=== PATIENT | male | born 1950 | race Caucasian/White ===

== ENCOUNTER 2020-08-06 12:28 | Emergency (ER) | payer MEDICARE, SELFPAY ==
[2020-08-06 13:52] VITALS: BP 123/76; PULSE 97; RESP 18; TEMP 37.8; O2SAT 99; BMI 34.2
--- NOTE | 2020-08-06 13:53 | XR_ITS ---
EXAMINATION: XR CHEST CLINICAL INFORMATION: Chest 11 cough. COMPARISON: None TECHNIQUE: Frontal view of the chest was obtained. FINDINGS: The lungs are well-expanded and clear. The heart size and pulmonary vascularity is within normal limits. Mild spondylosis of dorsal spine. No lytic process. XR/XR chest 1V IMPRESSION: Unremarkable chest exam.
--- NOTE | 2020-08-06 14:01 | ED_ITS ---
HPI - General Adult General Chief complaint: Dizziness Stated complaint: Dizziness Time Seen by Provider: 08/06/20 13:45 Source: patient Mode of arrival: ambulatory Limitations: no limitations History of Present Illness HPI narrative: this is 61-year-old male with past medical history that is significant for COPD, diabetes, hyperlipidemia, hypertension, chronic back pain secondary to arthritis/ disc disease who presents ambulatory via triage with complaint of having chills and body aches for the past 5 days with mild congestion and some left-sided chest pain. States has had chills but no reported fever. About a week ago he did go to [facility] and her for but no known sick contacts. He otherwise denies headache, currently no chest pain. No abdominal pain, nausea, vomiting or diarrhea. Onset (ago): day(s) (5 days ) Location: chest Radiation: non-radiation Severity: moderate Quality: aching Pain Consistency: intermittent Relieving factors: none Associated symptoms: denies other symptoms Related Data Allergies Allergy/AdvReac Type Severity Reaction Status Date / Time No Known Allergies Allergy Verified 08/06/20 13:55 Review of Systems Review of Systems: Constitutional: No Weight loss, No Fever, + Chills ENT/Mouth: No Hearing loss, No Ear Pain, + Nasal Congestion, No Sinus Pain, No Hoarseness, No sore throat, + Rhinorrhea, No Swallowing Difficulty Eyes: No Eye Pain, No Swelling, No Redness, No Foreign Body, No Discharge, No Vision Changes Cardiovascular: + Chest Pain, + SOB, No Dyspnea on Exertion, No Orthopnea, No Edema, No Palpitations Respiratory: Mild Cough, No Sputum, No Wheezing, No Smoke Exposure, No Dyspnea Gastrointestinal: No Nausea, No Vomiting, No Diarrhea, No Constipation, No abdominal Pain, No Hematochezia, No Melena Genitourinary: no irregular bleeding, No Dysuria, No Urinary Frequency, No Hematuria, No Urinary Incontinence, No Urgency, No Flank Pain, No Urinary Flow Changes, No Hesitancy Musculoskeletal: No joint pain, No Myalgias, No Joint Swelling Skin: No Skin Lesions, No rash Neuro: No Weakness, No Numbness, No Paresthesias, No Loss of Consciousness, No Dizziness, No Headache Psych: No Anxiety/Panic, No Depression, No Social Issues Heme/Lymph: No Bruising, No Bleeding,No Lymphadenopathy Endocrine: No Polyuria, No Polydipsia, No Temperature Intolerance Yes all other systems are reviewed and are negative [facility] Past Medical History Attestation statement: The following information was validated with the patient. [facility] Narrative: Screening colonoscopy 03/12/2019 prior to that he was admitted 11/28/2010 for renal failure, dehydration, syncopal episode, mild rhabdo Medical History (Updated 08/06/20 @ 19:42 by Charles Vogt NP) Arthritis Diabetes HTN (hypertension) Social History Social History Smoked in Last 30 Days: No Use of substances other than those prescribed or required for medical reasons: No Advance Directives: No Advance Directives Information Provided: No Physical Exam Vital Signs: Vital Signs: Vital Signs Temp Pulse Resp BP Pulse Ox 08/06/20 17:42 98.9 F 66 16 117/54 L 96 08/06/20 15:45 101.1 F H 08/06/20 15:05 100.1 F 80 16 131/77 94 08/06/20 13:52 100.0 F 97 18 123/76 99 Body Mass Index 34.2 Reviewed Const: General: cooperative and healthy appearing; No acute distress or intoxicated appearing Nutritional Appearance: average body habitus Orientation/consciousness: patient oriented x3 HENMT: Head: Yes normal to inspection Ears: hearing grossly normal bilaterally Eyes: General: appearance normal, both eyes and all related structures Visual Aranda: normal visual aranda by confrontation Neck: Neck: Yes normal visual inspection, No positive Brudzinski's sign, No p ositive Kernig's sign and No tender Thyroid: Thyroid normal Chest: Chest palpation & inspection: normal inspection of the chest Resp: Effort & Inspection: normal respiratory effort Cardio: Jugular venous distension: no JVD GI: Inspection: Yes normal to inspection Percussion: Yes normal to percussion Auscultation: normal bowel sounds : General: Yes no CVA tenderness Back/Spine/Pelvis: Back: no CVA tenderness Skin: General skin exam: no rashes or lesions noted Neuro: General: patient oriented x3 Extrem: General: Yes normal to inspection Medical Decision Making [facility] Narrative Medical decision making narrative: resting comfortable. No chest pain or shortness of breath. Repeat troponin without delta. Chest x-ray negative. Labs overall stable. AP consistent with viral syndrome type symptoms. Will be discharged home with clear return/follow-up instructions. COVID-19 pending. Out of bed ambulatory status with gait no shortness of breath or chest pain. Pulse ox at 98-99% on room air. Stable for discharge. Differential Diagnosis Differential Diagnosis: Viral syndrome, COVID-19, pneumonia, ACS less likely, costochondritis Lab Data Result diagrams: 08/06/20 14:13 08/06/20 14:13 Labs: Lab Results 08/06/20 08/06/20 08/06/20 Range/Units 14:13 14:13 14:13 WBC 8.0 (4.8-10.8) X10*3/uL RBC 5.09 (4.60-5.80) X10*6/uL Hgb 14.6 (14.0-18.0) g/dl Hct 44.5 (42-52) % MCV 87.4 (80-98) fL MCH 28.7 (27.0-33.0) pg MCHC 32.8 (31.0-36.0) g/dl RDW 13.1 (11.0-16.0) % Plt Count 234 (160-400) X10*3/uL MPV 10.5 (9.4-12.4) fL Immature Gran % (Auto) 0.2 (0.0-0.4) % Neut % (Auto) 80.9 H (45-73) % Lymph % (Auto) 12.7 L (20-40) % [place] % (Auto) 6.1 (2-11) % Eos % (Auto) 0.0 (0-4) % Baso % (Auto) 0.1 (0-2) % Lymph # (Auto) 1.0 L (1.2-4.9) X10*3/uL [place] # (Auto) 0.5 (0.1-1.2) X10*3/uL Eos # (Auto) 0.0 (0.0-0.4) X10*3/uL Baso # (Auto) 0.0 (0.0-0.2) X10*3/uL Abs Immat Gran (auto) 0.02 (0.00-0.03) X10*3/uL Absolute Neuts (auto) 6.5 (2.0-8.3) X10*3/uL Absolute Nucleated RBC 0.000 (0.0-0.012) X10*3/uL Nucleated RBC % (auto) 0.0 (0.0-0.2) /100WBC PT 12.8 (10.8-13.0) SEC INR 1.1 (0.9-1.1) APTT 27.6 (24.1-38.0) SEC Sodium (135-145) mmol/L Potassium (3.3-5.1) mmol/l Chloride (96-108) mmol/L Carbon Dioxide (22-29) mmol/L Anion Gap (12-20) BUN (9-16) mg/dL Creatinine (0.5-1.4) mg/dL Estim Creat Clear Calc Estimated GFR POC Glucose (60-115) mg/dL Random Glucose (60-115) mg/dL Lactic Acid (0.5-2.0) mmol/L Calcium (8.4-10.2) mg/dL Total Bilirubin (0.0-1.0) mg/dL AST (5-37) U/L ALT (0-40) U/L Alkaline Phosphatase (39-117) U/L Lactate Dehydrogenase (118-273) U/L Troponin I High Sens (<3.5-35.0) ng/L Total Protein (6.5-8.0) g/dL Albumin (3.5-5.0) g/dL Procalcitonin 0.18 ng/mL Urine Color Urine Appearance Urine pH (5.0-8.0) Ur Specific [place] (1.005-1.025) Urine Protein (NEG-TRACE) MG/DL Urine Glucose (UA) (NEG) MG/DL Urine Ketones (NEG) MG/DL Urine Blood (NEG) Urine Nitrite (NEG) Ur Leukocyte Esterase (NEG) Urine RBC (0) /HPF Urine WBC (0-4) /HPF Ur Squamous Epith Cells /LPF Urine Bacteria /LPF Influenza Type A (PCR) (Negative) Influenza Type B (PCR) (Negative) Influenza A & B Note RSV RNA Qual (PCR) (Negative) 08/06/20 08/06/20 08/06/20 Range/Units 14:13 14:13 14:13 WBC (4.8-10.8) X10*3/uL RBC (4.60-5.80) X10*6/uL Hgb (14.0-18.0) g/dl Hct (42-52) % MCV (80-98) fL MCH (27.0-33.0) pg MCHC (31.0-36.0) g/dl RDW (11.0-16.0) % Plt Count (160-400) X10*3/uL MPV (9.4-12.4) fL Immature Gran % (Auto) (0.0-0.4) % Neut % (Auto) (45-73) % Lymph % (Auto) (20-40) % [place] % (Auto) (2-11) % Eos % (Auto) (0-4) % Baso % (Auto) (0-2) % Lymph # (Auto) (1.2-4.9) X10*3/uL [place] # (Auto) (0.1-1.2) X10*3/uL Eos # (Auto) (0.0-0.4) X10*3/uL Baso # (Auto) (0.0-0.2) X10*3/uL Abs Immat Gran (auto) (0.00-0.03) X10*3/uL Absolute Neuts (auto) (2.0-8.3) X10*3/uL Absolute Nucleated RBC (0.0-0.012) X10*3/uL Nucleated RBC % (auto) (0.0-0.2) /100WBC PT (10.8-13.0) SEC INR (0.9-1.1) APTT (24.1-38.0) SEC Sodium 138 (135-145) mmol/L Potassium 4.2 (3.3-5.1) mmol/l Chloride 102 (96-108) mmol/L Carbon Dioxide 24 (22-29) mmol/L Anion Gap 16 (12-20) BUN 16 (9-16) mg/dL Creatinine 1.31 (0.5-1.4) mg/dL Estim Creat Clear Calc 62.4 Estimated GFR 54 POC Glucose (60-115) mg/dL Random Glucose 59 L* (60-115) mg/dL Lactic Acid 2.0 (0.5-2.0) mmol/L Calcium 8.2 L (8.4-10.2) mg/dL Total Bilirubin 0.6 (0.0-1.0) mg/dL AST 33 (5-37) U/L ALT 25 (0-40) U/L Alkaline Phosphatase 67 (39-117) U/L Lactate Dehydrogenase 199 (118-273) U/L Troponin I High Sens 18.3 (<3.5-35.0) ng/L Total Protein 7.8 (6.5-8.0) g/dL Albumin 4.2 (3.5-5.0) g/dL Procalcitonin ng/mL Urine Color Urine Appearance Urine pH (5.0-8.0) Ur Specific [place] (1.005-1.025) Urine Protein (NEG-TRACE) MG/DL Urine Glucose (UA) (NEG) MG/DL Urine Ketones (NEG) MG/DL Urine Blood (NEG) Urine Nitrite (NEG) Ur Leukocyte Esterase (NEG) Urine RBC (0) /HPF Urine WBC (0-4) /HPF Ur Squamous Epith Cells /LPF Urine Bacteria /LPF Influenza Type A (PCR) (Negative) Influenza Type B (PCR) (Negative) Influenza A & B Note RSV RNA Qual (PCR) (Negative) 08/06/20 08/06/20 08/06/20 Range/Units 14:13 15:44 15:58 WBC (4.8-10.8) X10*3/uL RBC (4.60-5.80) X10*6/uL Hgb (14.0-18.0) g/dl Hct (42-52) % MCV (80-98) fL MCH (27.0-33.0) pg MCHC (31.0-36.0) g/dl RDW (11.0-16.0) % Plt Count (160-400) X10*3/uL MPV (9.4-12.4) fL Immature Gran % (Auto) (0.0-0.4) % Neut % (Auto) (45-73) % Lymph % (Auto) (20-40) % [place] % (Auto) (2-11) % Eos % (Auto) (0-4) % Baso % (Auto) (0-2) % Lymph # (Auto) (1.2-4.9) X10*3/uL [place] # (Auto) (0.1-1.2) X10*3/uL Eos # (Auto) (0.0-0.4) X10*3/uL Baso # (Auto) (0.0-0.2) X10*3/uL Abs Immat Gran (auto) (0.00-0.03) X10*3/uL Absolute Neuts (auto) (2.0-8.3) X10*3/uL Absolute Nucleated RBC (0.0-0.012) X10*3/uL Nucleated RBC % (auto) (0.0-0.2) /100WBC PT (10.8-13.0) SEC INR (0.9-1.1) APTT (24.1-38.0) SEC Sodium (135-145) mmol/L Potassium (3.3-5.1) mmol/l Chloride (96-108) mmol/L Carbon Dioxide (22-29) mmol/L Anion Gap (12-20) BUN (9-16) mg/dL Creatinine (0.5-1.4) mg/dL Estim Creat Clear Calc Estimated GFR POC Glucose 159 H (60-115) mg/dL Random Glucose (60-115) mg/dL Lactic Acid (0.5-2.0) mmol/L Calcium (8.4-10.2) mg/dL Total Bilirubin (0.0-1.0) mg/dL AST (5-37) U/L ALT (0-40) U/L Alkaline Phosphatase (39-117) U/L Lactate Dehydrogenase (118-273) U/L Troponin I High Sens 19.1 (<3.5-35.0) ng/L Total Protein (6.5-8.0) g/dL Albumin (3.5-5.0) g/dL Procalcitonin ng/mL Urine Color Urine Appearance Urine pH (5.0-8.0) Ur Specific [place] (1.005-1.025) Urine Protein (NEG-TRACE) MG/DL Urine Glucose (UA) (NEG) MG/DL Urine Ketones (NEG) MG/DL Urine Blood (NEG) Urine Nitrite (NEG) Ur Leukocyte Esterase (NEG) Urine RBC (0) /HPF Urine WBC (0-4) /HPF Ur Squamous Epith Cells /LPF Urine Bacteria /LPF Influenza Type A (PCR) NEGATIVE (Negative) Influenza Type B (PCR) NEGATIVE (Negative) Influenza A & B Note See Note RSV RNA Qual (PCR) NEGATIVE (Negative) 08/06/20 Range/Units 17:42 WBC (4.8-10.8) X10*3/uL RBC (4.60-5.80) X10*6/uL Hgb (14.0-18.0) g/dl Hct (42-52) % MCV (80-98) fL MCH (27.0-33.0) pg MCHC (31.0-36.0) g/dl RDW (11.0-16.0) % Plt Count (160-400) X10*3/uL MPV (9.4-12.4) fL Immature Gran % (Auto) (0.0-0.4) % Neut % (Auto) (45-73) % Lymph % (Auto) (20-40) % [place] % (Auto) (2-11) % Eos % (Auto) (0-4) % Baso % (Auto) (0-2) % Lymph # (Auto) (1.2-4.9) X10*3/uL [place] # (Auto) (0.1-1.2) X10*3/uL Eos # (Auto) (0.0-0.4) X10*3/uL Baso # (Auto) (0.0-0.2) X10*3/uL Abs Immat Gran (auto) (0.00-0.03) X10*3/uL Absolute Neuts (auto) (2.0-8.3) X10*3/uL Absolute Nucleated RBC (0.0-0.012) X10*3/uL Nucleated RBC % (auto) (0.0-0.2) /100WBC PT (10.8-13.0) SEC INR (0.9-1.1) APTT (24.1-38.0) SEC Sodium (135-145) mmol/L Potassium (3.3-5.1) mmol/l Chloride (96-108) mmol/L Carbon Dioxide (22-29) mmol/L Anion Gap (12-20) BUN (9-16) mg/dL Creatinine (0.5-1.4) mg/dL Estim Creat Clear Calc Estimated GFR POC Glucose (60-115) mg/dL Random Glucose (60-115) mg/dL Lactic Acid (0.5-2.0) mmol/L Calcium (8.4-10.2) mg/dL Total Bilirubin (0.0-1.0) mg/dL AST (5-37) U/L ALT (0-40) U/L Alkaline Phosphatase (39-117) U/L Lactate Dehydrogenase (118-273) U/L Troponin I High Sens (<3.5-35.0) ng/L Total Protein (6.5-8.0) g/dL Albumin (3.5-5.0) g/dL Procalcitonin ng/mL Urine Color YELLOW Urine Appearance CLEAR Urine pH 5.5 (5.0-8.0) Ur Specific [place] 1.025 (1.005-1.025) Urine Protein 2+ H (NEG-TRACE) MG/DL Urine Glucose (UA) NEG (NEG) MG/DL Urine Ketones NEG (NEG) MG/DL Urine Blood TRACE (NEG) Urine Nitrite NEG (NEG) Ur Leukocyte Esterase NEG (NEG) Urine RBC 1-4 (0) /HPF Urine WBC 0 (0-4) /HPF Ur Squamous Epith Cells 1+ /LPF Urine Bacteria NONE /LPF Influenza Type A (PCR) (Negative) Influenza Type B (PCR) (Negative) Influenza A & B Note RSV RNA Qual (PCR) (Negative) Discharge Plan Discharge Clinical Impression: Upper respiratory infection, viral, Anterior chest wall pain Patient Disposition: Home, Self-Care Instructions: Chest Pain (ED), Upper Respiratory Infection (ED) Additional Instructions: Based on your symptoms and history we have sent a COVID-19. Although your RESULT IS PENDING at this time. RESULTS should return within 72 hours. At this time you will be contacted with either NEGATIVE OR POSITIVE results. -Please wait until we contact you for your results. At this time you will be okay for discharge. Please plan for self quarantine for up to 14 days. Do not expose yourself to others. You may not go to work. If testing does come back negative you may return to activities as long as you are no longer having any symptoms for at least 3 days. Please continue to follow cold instructions and wash your hands frequently. You may take Tylenol as directed on the bottle for pain or fever. Patient seen in the emergency department on 04/07/2020 and should be excused from work until negative test results AND until 72 hours without any symptoms AND at least 10 days have passed since symptoms first appeared or since last exposure to COVID-19 positive patient CDC Guidelines for home isolation: - Stay away from others - WEAR A MASK if you are sick AND STAY HOME - Cover your mouth and nose with a tissue when you cough or sneeze. Dispose of tissues in a lined trash can and wash your hands immediately with soap and water for at least 20 seconds. If soap and water are not available, clean hands with alcohol-based hand face boss that contains at least 60% alcohol. - Clean your hands often with soap and water for at least 20 seconds - Avoid touching your eyes, nose and mouth with unwashed hands - Do not share dishes, drinking glasses, cups, eating utensils, towels, or bedding with other people in your home. After using these items, wash them thoroughly with soap and water or put in the weight control engineer. - Clean high-touch surfaces in your isolation area ( sick room and bathroom) every day; let a caregiver clean and disinfect high-touch surfaces in other areas of the home. Clean the area or item with soap and water or another detergent if it is dirty. Then, use a household disinfectant. - Limit contact with pets and animals: If you must care for a pet, wash your hands before and after interacting with them Referrals: Marleny Beebe MD [Primary Care Provider] - 1 week
[2020-08-06] MEDS: Acetaminophen 325 MG TABLET 975 MG PO (14:17)
[2020-08-06] MEDS: 0.9 % Sodium Chloride 500 ML IV (14:17)
[2020-08-06 14:18] LABS: MANUAL DIFF FLAG NO
[2020-08-06 14:20] LABS: Basophils Percent Auto 0.1 % (0-2); Hematocrit 44.5 % (42-52); Hemoglobin 14.6 g/dl (14.0-18.0); Imm Gran Abs Auto 0.02 X10*3/uL (0.00-0.03); Imm Gran Pct Auto 0.2 % (0.0-0.4); Lymphocytes Percent Auto 12.7 % (20-40); Mean Corpuscular HGB Conc 32.8 g/dl (31.0-36.0); Mean Corpuscular Hemoglobin 28.7 pg (27.0-33.0); Mean Corpuscular Volume 87.4 fL (80-98); Mean Platelet Volume 10.5 fL (9.4-12.4); Monocytes Absolute Auto 0.5 X10*3/uL (0.1-1.2); Monocytes Percent Auto 6.1 % (2-11); Neutrophils Absolute Auto 6.5 X10*3/uL (2.0-8.3); Neutrophils Percent Auto 80.9 % (45-73); Platelet Count 234 X10*3/uL (160-400); Red Blood Count 5.09 X10*6/uL (4.60-5.80); Red Cell Distribution Width 13.1 % (11.0-16.0)
[2020-08-06 14:26] LABS: INTERNATIONAL NORM RATIO 1.1 (0.9-1.1); Prothrombin Time 12.8 SEC (10.8-13.0)
[2020-08-06 14:29] LABS: Partial Thromboplastin Time 27.6 SEC (24.1-38.0)
[2020-08-06 14:50] LABS: Troponin-I High Sensitivity 18.3 ng/L (<3.5-35.0)
[2020-08-06 14:58] LABS: Influenza A PCR NEGATIVE (Negative); Influenza B PCR NEGATIVE (Negative)
[2020-08-06 15:00] LABS: Alanine Aminotransferase 25 U/L (0-40); Albumin Level 4.2 g/dL (3.5-5.0); Alkaline Phosphatase 67 U/L (39-117); Anion Gap 16 (12-20); Aspartate Amino Transferase 33 U/L (5-37); Bilirubin Total 0.6 mg/dL (0.0-1.0); Blood Urea Nitrogen 16 mg/dL (9-16); Calcium 8.2 mg/dL (8.4-10.2); Carbon Dioxide 24 mmol/L (22-29); Chloride 102 mmol/L (96-108); Creatinine Clr Calc Pharmacy 62.4; Estimated Glomerular Filt Rate 54; Glucose Random 59 mg/dL (60-115); Lactate Dehydrogenase 199 U/L (118-273); Potassium 4.2 mmol/l (3.3-5.1); Sodium 138 mmol/L (135-145); Total Protein 7.8 g/dL (6.5-8.0)
[2020-08-06 15:04] LABS: Resp Syncy Virus RNA Qual PCR NEGATIVE (Negative)
[2020-08-06 15:05] VITALS: BP 131/77; PULSE 80; RESP 16; TEMP 37.8; O2SAT 94
[2020-08-06 15:32] LABS: Procalcitonin 0.18 ng/mL
[2020-08-06 15:45] VITALS: TEMP 38.4
[2020-08-06 15:50] LABS: Glucose, Whole Blood 159 mg/dL (60-115)
[2020-08-06] MEDS: Ibuprofen 800 MG TABLET PO (15:51)
[2020-08-06] MEDS: 0.9 % Sodium Chloride 500 ML 1000 ML IV (15:52)
[2020-08-06 16:31] LABS: Troponin-I High Sensitivity 19.1 ng/L (<3.5-35.0)
[2020-08-06 17:42] VITALS: BP 117/54; PULSE 66; RESP 16; TEMP 37.2; O2SAT 96
[2020-08-06 17:51] LABS: Glucose Urine UA NEG (NEG); Leukocyte Esterase Urine NEG (NEG); Nitrite Urine NEG (NEG); PH 5.5 (5.0-8.0); Specific Gravity - Urine 1.025 (1.005-1.025); Urine Blood TRACE (NEG); Urine Ketones NEG (NEG); Urine Protein 2+ MG/DL (NEG-TRACE)
[2020-08-06 17:53] LABS: Appearance Urine CLEAR; Color Urine YELLOW
[2020-08-06 17:57] LABS: Squamous Epithelial Cell Urine 1+ /LPF; WBC Urine 0 /HPF (0-4)
--- NOTE | 2020-08-06 18:00 | XR_ITS ---
EXAMINATION: XR HIP, RIGHT , AP pelvis CLINICAL INFORMATION: Fall pain COMPARISON: None available at the time of this dictation. TECHNIQUE: Frontal and lateral views of the hip acquired. , AP pelvis FINDINGS: There is no evidence of acute fracture or dislocation. There are mild degenerative arthritic changes of the hip evident by sclerotic changes of the acetabular roof and narrowing of the joint space. Mild degenerative changes of the symphysis pubis. Mild degenerative changes of the SI joints. Adjacent pubic rami are intact. Surrounding soft tissues are unremarkable. XR/XR hip RT w [id number] IMPRESSION: Mild degenerative arthritis. No radiographic evidence of acute fracture.
[2020-08-06 19:35] VITALS: BP 113/60; PULSE 68; RESP 16; TEMP 36.6; O2SAT 96
== END 2020-08-06 20:23 | disposition home or self-care (01) ==
PROVIDERS: Nurse Practitioner Primary Care; Emergency Provider Emergency Medicine; PCP Internal Medicine
DX: R42 Dizziness and giddiness (principal); J06.9 Acute upper respiratory infection, unspecified; R07.89 Other chest pain; I10 Essential (primary) hypertension; Z20.828 Contact with and (suspected) exposure to other viral communicable diseases; Z79.899 Other long term (current) drug therapy
CPT/HCPCS: 36415; 71045; 73502; 80053; 81001; 82947; 83605; 83615; 84145; 84484; 85025; 85610; 85730; 87631; 87635; 96360; 99284

== ENCOUNTER 2020-12-18 15:02 | Outpatient (REF) | payer MEDICARE, SELFPAY | END 2020-12-18 15:03 | disposition home or self-care (01) | LOC: HO.LAB 15:02 | PROVIDERS: Visit Provider Internal Medicine | DX: Z20.822 Contact with and (suspected) exposure to COVID-19 (principal) | CPT/HCPCS: 36415; C9803; U0003; U0005 ==

== ENCOUNTER 2021-12-12 18:42 | Emergency (ER) | payer MEDICARE, OTHER, SELFPAY ==
--- NOTE | ~2021-12-12 | XR_ITS ---
EXAMINATION: XR CHEST CLINICAL INFORMATION: Generalized weakness COMPARISON: Chest 08/06/2020 TECHNIQUE: Frontal view of the chest was obtained. FINDINGS: No significant abnormality is noted involving the heart, lungs, mediastinum, bony thorax or soft tissues. XR/XR chest 1V IMPRESSION: Unremarkable chest examination.
[2021-12-12 18:45] VITALS: BP 170/68; PULSE 72; O2SAT 95
--- NOTE | 2021-12-12 19:08 | ED.GENADULT ---
HPI - General Adult General Chief complaint: General Medical Stated complaint: Fatigue s/p smoking marijuana per ems Time Seen by Provider: 12/12/21 22:22 Source: patient and EMS Mode of arrival: EMS Limitations: no limitations History of Present Illness HPI narrative: 70 years old male brought in by EMS for evaluation after smoking marijuana and using cocaine today. Patient is insulin-dependent diabetes with controlled blood sugar found to be above 200 today which is abnormal for him, patient has been compliant with his insulin therapy, declined any chest pain or headache or abdominal pain. Patient otherwise decline headache, no blurry vision, no neck pain, no chest pain, no shortness of breath, no abdominal pain, no nausea, no vomiting, no fever, no chills. Related Data Allergies Allergy/AdvReac Type Severity Reaction Status Date / Time No Known Allergies Allergy Verified 08/06/20 13:55 Review of Systems Review of Systems: All other systems are reviewed and are negative Constitutional: Reports as per HPI and Reports no additional constitutional complaints Eyes: Reports as per HPI and Reports no additional eye complaints Reports system reviewed and no additional complaints, except as documented Cardiovascular: Reports as per HPI and Reports no additional cardiovascular complaints Respiratory: Reports as per HPI and Reports no additional respiratory complaints Gastrointestinal: Reports as per HPI and Reports no additional gastrointestinal complaints Genitourinary: Reports no additional female genitourinary complaints Musculoskeletal: Reports no additional musculoskeletal complaints Skin/Breast: Reports system reviewed and no additional complaints, except as docu Psychiatric: Reports no additional psychiatric complaints Endocrine: Reports no additional endocrine complaints Hematologic/Lymphatic: Reports no additional hematologic/lymphatic complaints Allergic/Immunologic: Reports no additional allergic/immunologic complaints Reports system reviewed and no additional complaints, except as documented and Reports Abnormal speech present [facility] Past Medical History Medical History Arthritis Diabetes HTN (hypertension) Social History Social History Advance Directives: No Advance Directives Information Provided: No Physical Exam ED Vital Signs: Vital Signs - 24 hr 12/12/21 19:56 12/12/21 20:24 12/13/21 00:00 Temperature 97 F 97.8 F Pulse Rate 66 54 58 Respiratory Rate 16 12 16 Blood Pressure 97/58 L 91/44 L 122/63 Pulse Oximetry 98 96 97 BMI result Body Mass Index 30.9 Vital signs have been reviewed as appeared to be correct. Blood pressure normal. Heart rate normal. Respiration rate normal. Temperature normal. Oxygen saturation normal. Appearance: Alert. Oriented X3. No acute distress. Head: Normal external exam. Normocephalic. Atraumatic. No [place] signs noted. No raccoon eyes noted Eyes: PERRLA. EOMI. Conjunctiva and sclera normal. Eyelids normal. ENT: TM's Normal. Pharynx normal. Uvula midline. Moist mucous membranes. No trismus noted. No drooling noted. No muffled voice noted. Neck: Normal inspection. Neck supple. FROM. No adenopathy. Thyroid Normal. No meningeal signs. No neck mass noted. CVS: Normal heart rate and rhythm. Heart sound normal. No murmurs noted. Pulses normal throughout. Respiratory: No respiratory distress. Painless inspiration. Breath sounds normal. No wheezes/rales/rhonchi noted. Chest nontender. No accessory muscle usage noted or decreased air movement noted. Abdomen: Soft and nontender. Bowel sounds normal in all 4 quadrants. No distention noted. No organomegaly noted. No visible injury noted. Back: No CVA tenderness. Full range of motion noted. Skin: Skin warm and dry. Normal skin color. Normal skin turgor. No rashes/lesions/lacerations noted. Extremities: No lower extremity edema. Extremities exhibit normal range of motion. Extremities nontender. Neuro: Oriented X 3. Cranial nerve exam: II-XII are grossly intact No motor deficit. No sensory deficit. Reflexes normal. Course Course Course Narrative: Assessment and plan. 70-year-old male came in with generalized weakness after used marijuana and cocaine today. Patient is diabetic was also complaining of elevated blood sugar, patient received 2 L of fluids, Patient found to have a slight elevation of BUN/ creatinine and elevated potassium (had a history of hyperkalemia) Patient otherwise feeling better. Will start the patient on Kayexalate p.o. EKG is unremarkable for hyperkalemia patient was instructed to follow up with PCP for repeat blood workup. Medical Decision Making Lab Data Lab results reviewed: Yes I reviewed the patient's lab results. Result diagrams: 12/12/21 20:56 12/12/21 23:43 Labs: Lab Results 03/12/0412/12/21 12/12/21 Range/Units 20:56 20:56 20:56 WBC 11.8 H (4.8-10.8) X10*3/uL RBC 4.20 L (4.60-5.80) X10*6/uL Hgb 12.2 L (14.0-18.0) g/dl Hct 37.6 L (42.0-52.0) % MCV 89.5 (80.0-98.0) fL MCH 29.0 (27.0-33.0) pg MCHC 32.4 (31.0-36.0) g/dl RDW 13.2 (11.0-16.0) % Plt Count 228 (160-400) X10*3/uL MPV 10.7 (9.4-12.4) fL Immature Gran % (Auto) 0.5 H (0.0-0.4) % Neut % (Auto) 75.8 H (45-73) % Lymph % (Auto) 17.4 L (20-40) % [place] % (Auto) 4.9 (2-11) % Eos % (Auto) 1.2 (0-4) % Baso % (Auto) 0.2 (0-2) % Lymph # (Auto) 2.1 (1.2-4.9) X10*3/uL [place] # (Auto) 0.6 (0.1-1.2) X10*3/uL Eos # (Auto) 0.1 (0.0-0.4) X10*3/uL Baso # (Auto) 0.0 (0.0-0.2) X10*3/uL Abs Immat Gran (auto) 0.06 H (0.00-0.03) X10*3/uL Absolute Neuts (auto) 9.0 H (2.0-8.3) x10*3/uL Absolute Nucleated RBC 0.000 (0.0-0.012) X10*3/uL Nucleated RBC % (auto) 0.0 (0.0-0.2) /100WBC Sodium 137 (135-145) mmol/L Potassium 5.3 H (3.3-5.1) mmol/L Chloride 106 (96-108) mmol/L Carbon Dioxide 24 (22-29) mmol/L Anion Gap 12 (12-20) BUN 29 H (9-16) mg/dL Creatinine 2.06 H (0.5-1.4) mg/dL Estim Creat Clear Calc 38.4 Estimated GFR 32 Random Glucose 241 H D (60-115) mg/dL Calcium 7.8 L (8.4-10.2) mg/dL Total Bilirubin 0.4 (0.0-1.0) mg/dL Direct Bilirubin 0.2 (0.0-0.5) mg/dL AST 11 D (5-37) U/L ALT 6 (0-40) U/L Alkaline Phosphatase 65 (39-117) U/L Total Creatine Kinase 111 (38-174) U/L Troponin I High Sens 5.7 (<3.5-35.0) ng/L Total Protein 5.9 L D (6.5-8.0) g/dL Albumin 3.3 L D (3.5-5.0) g/dL Lipase 74 (8-78) U/L Urine Color Urine Appearance Urine pH (5.0-8.0) Ur Specific [place] (1.005-1.025) Urine Protein (NEG-TRACE) MG/DL Urine Glucose (UA) (NEG) MG/DL Urine Ketones (NEG) MG/DL Urine Blood (NEG) Urine Nitrite (NEG) Ur Leukocyte Esterase (NEG) Urine Opiates Screen (Not Detect) Urine Fentanyl Screen (Not Detect) Ur Barbiturates Screen (Not Detect) Ur Phencyclidine Scrn (Not Detect) Ur Amphetamines Screen (Not Detect) U Benzodiazepines Scrn (Not Detect) Urine Cocaine Screen (Not Detect) U Marijuana (THC) Screen (Not Detect) Ethyl Alcohol mg/dL 12/12/21 12/12/21 12/12/21 Range/Units 20:56 21:34 21:34 WBC (4.8-10.8) X10*3/uL RBC (4.60-5.80) X10*6/uL Hgb (14.0-18.0) g/dl Hct (42.0-52.0) % MCV (80.0-98.0) fL MCH (27.0-33.0) pg MCHC (31.0-36.0) g/dl RDW (11.0-16.0) % Plt Count (160-400) X10*3/uL MPV (9.4-12.4) fL Immature Gran % (Auto) (0.0-0.4) % Neut % (Auto) (45-73) % Lymph % (Auto) (20-40) % [place] % (Auto) (2-11) % Eos % (Auto) (0-4) % Baso % (Auto) (0-2) % Lymph # (Auto) (1.2-4.9) X10*3/uL [place] # (Auto) (0.1-1.2) X10*3/uL Eos # (Auto) (0.0-0.4) X10*3/uL Baso # (Auto) (0.0-0.2) X10*3/uL Abs Immat Gran (auto) (0.00-0.03) X10*3/uL Absolute Neuts (auto) (2.0-8.3) x10*3/uL Absolute Nucleated RBC (0.0-0.012) X10*3/uL Nucleated RBC % (auto) (0.0-0.2) /100WBC Sodium (135-145) mmol/L Potassium (3.3-5.1) mmol/L Chloride (96-108) mmol/L Carbon Dioxide (22-29) mmol/L Anion Gap (12-20) BUN (9-16) mg/dL Creatinine (0.5-1.4) mg/dL Estim Creat Clear Calc Estimated GFR Random Glucose (60-115) mg/dL Calcium (8.4-10.2) mg/dL Total Bilirubin (0.0-1.0) mg/dL Direct Bilirubin (0.0-0.5) mg/dL AST (5-37) U/L ALT (0-40) U/L Alkaline Phosphatase (39-117) U/L Total Creatine Kinase (38-174) U/L Troponin I High Sens (<3.5-35.0) ng/L Total Protein (6.5-8.0) g/dL Albumin (3.5-5.0) g/dL Lipase (8-78) U/L Urine Color YELLOW Urine Appearance CLEAR Urine pH 6.0 (5.0-8.0) Ur Specific [place] 1.020 (1.005-1.025) Urine Protein NEG (NEG-TRACE) MG/DL Urine Glucose (UA) NEG (NEG) MG/DL Urine Ketones NEG (NEG) MG/DL Urine Blood NEG (NEG) Urine Nitrite NEG (NEG) Ur Leukocyte Esterase NEG (NEG) Urine Opiates Screen Not Detected (Not Detect) Urine Fentanyl Screen Not Detected (Not Detect) Ur Barbiturates Screen Not Detected (Not Detect) Ur Phencyclidine Scrn Not Detected (Not Detect) Ur Amphetamines Screen Not Detected (Not Detect) U Benzodiazepines Scrn Not Detected (Not Detect) Urine Cocaine Screen POSITIVE H (Not Detect) U Marijuana (THC) Screen POSITIVE H (Not Detect) Ethyl Alcohol < 10 mg/dL 12/12/21 Range/Units 23:43 WBC (4.8-10.8) X10*3/uL RBC (4.60-5.80) X10*6/uL Hgb (14.0-18.0) g/dl Hct (42.0-52.0) % MCV (80.0-98.0) fL MCH (27.0-33.0) pg MCHC (31.0-36.0) g/dl RDW (11.0-16.0) % Plt Count (160-400) X10*3/uL MPV (9.4-12.4) fL Immature Gran % (Auto) (0.0-0.4) % Neut % (Auto) (45-73) % Lymph % (Auto) (20-40) % [place] % (Auto) (2-11) % Eos % (Auto) (0-4) % Baso % (Auto) (0-2) % Lymph # (Auto) (1.2-4.9) X10*3/uL [place] # (Auto) (0.1-1.2) X10*3/uL Eos # (Auto) (0.0-0.4) X10*3/uL Baso # (Auto) (0.0-0.2) X10*3/uL Abs Immat Gran (auto) (0.00-0.03) X10*3/uL Absolute Neuts (auto) (2.0-8.3) x10*3/uL Absolute Nucleated RBC (0.0-0.012) X10*3/uL Nucleated RBC % (auto) (0.0-0.2) /100WBC Sodium 139 (135-145) mmol/L Potassium 5.7 H (3.3-5.1) mmol/L Chloride 108 (96-108) mmol/L Carbon Dioxide 24 (22-29) mmol/L Anion Gap 13 (12-20) BUN 27 H (9-16) mg/dL Creatinine 1.70 H (0.5-1.4) mg/dL Estim Creat Clear Calc 46.6 Estimated GFR 40 Random Glucose 198 H (60-115) mg/dL Calcium 7.7 L (8.4-10.2) mg/dL Total Bilirubin (0.0-1.0) mg/dL Direct Bilirubin (0.0-0.5) mg/dL AST (5-37) U/L ALT (0-40) U/L Alkaline Phosphatase (39-117) U/L Total Creatine Kinase (38-174) U/L Troponin I High Sens (<3.5-35.0) ng/L Total Protein (6.5-8.0) g/dL Albumin (3.5-5.0) g/dL Lipase (8-78) U/L Urine Color Urine Appearance Urine pH (5.0-8.0) Ur Specific [place] (1.005-1.025) Urine Protein (NEG-TRACE) MG/DL Urine Glucose (UA) (NEG) MG/DL Urine Ketones (NEG) MG/DL Urine Blood (NEG) Urine Nitrite (NEG) Ur Leukocyte Esterase (NEG) Urine Opiates Screen (Not Detect) Urine Fentanyl Screen (Not Detect) Ur Barbiturates Screen (Not Detect) Ur Phencyclidine Scrn (Not Detect) Ur Amphetamines Screen (Not Detect) U Benzodiazepines Scrn (Not Detect) Urine Cocaine Screen (Not Detect) U Marijuana (THC) Screen (Not Detect) Ethyl Alcohol mg/dL Imaging Data Chest x-ray: Attestation: I personally reviewed and interpreted this imaging study as follows: Radiologist's impression: Unremarkable chest examination. ECG Data Attestation: I personally reviewed and interpreted this ECG as follows: Interpretation: Normal sinus rhythm at 63 beats per minutes, left axis deviation. Discharge Plan Discharge Clinical Impression: Acute hyperkalemia, Substance abuse, Hyperglycemia, Acute renal insufficiency Patient Disposition: Home, Self-Care Instructions: Hyperkalemia (ED), Polysubstance Abuse (ED), Impaired Kidney Function (ED) Additional Instructions: It is important to follow-up with your primary doctor and recheck your blood workup. Referrals: Marleny Beebe MD [Primary Care Provider] - 2 days
--- NOTE | 2021-12-12 19:11 | ECG_ITS ---
Test Reason : FATIGUE Blood Pressure : / mmHG Vent. Rate : 063 BPM Atrial Rate : 063 BPM P-R Int : 180 ms QRS Dur : 148 ms QT Int : 454 ms P-R-T Axes : -07 -53 -18 degrees QTc Int : 464 ms Normal sinus rhythm Left axis deviation Left ventricular hypertrophy with QRS widening ( R in aVL , Nik product ) Abnormal ECG When compared to the previous EKG of No significant changes seen Referred By: Jhonny Nieto Electronically Signed By:Clemente Shanks
[2021-12-12 19:56] VITALS: BP 97/58; PULSE 66; RESP 16; TEMP 36.1; O2SAT 98; BMI 30.9
[2021-12-12 20:24] VITALS: BP 91/44; PULSE 54; RESP 12; O2SAT 96
[2021-12-12] MEDS: 0.9 % Sodium Chloride 1,000 ML 999 ML IV ×2 (20:33→22:54)
--- NOTE | 2021-12-12 20:33 | PC.NURSE ---
PT RESTING IN STRETCHER WITH FAMILY AT BEDSIDE. PT ALERT, RESPIRATIONS EASY, N/L. SKIN W/D. PT DENIES ANY COMPLAINTS AT THIS TIME, PT REMAINS ON MONITOR IN NAD. PT AWAITING FOR FURTHER ORDERS.
[2021-12-12 21:03] LABS: MANUAL DIFF FLAG NO
[2021-12-12 21:06] LABS: Basophils Percent Auto 0.2 % (0-2); Eosinophils Absolute Auto 0.1 X10*3/uL (0.0-0.4); Eosinophils Percent Auto 1.2 % (0-4); Hematocrit 37.6 % (42.0-52.0); Hemoglobin 12.2 g/dl (14.0-18.0); Imm Gran Abs Auto 0.06 X10*3/uL (0.00-0.03); Imm Gran Pct Auto 0.5 % (0.0-0.4); Lymphocytes Absolute Auto 2.1 X10*3/uL (1.2-4.9); Lymphocytes Percent Auto 17.4 % (20-40); Mean Corpuscular HGB Conc 32.4 g/dl (31.0-36.0); Mean Corpuscular Volume 89.5 fL (80.0-98.0); Mean Platelet Volume 10.7 fL (9.4-12.4); Monocytes Absolute Auto 0.6 X10*3/uL (0.1-1.2); Monocytes Percent Auto 4.9 % (2-11); Neutrophils Percent Auto 75.8 % (45-73); Platelet Count 228 X10*3/uL (160-400); Red Cell Distribution Width 13.2 % (11.0-16.0); White Blood Count 11.8 X10*3/uL (4.8-10.8)
[2021-12-12 21:19] LABS: Ethanol < 10 mg/dL
[2021-12-12 21:21] LABS: Alanine Aminotransferase 6 U/L (0-40); Albumin Level 3.3 g/dL (3.5-5.0); Alkaline Phosphatase 65 U/L (39-117); Anion Gap 12 (12-20); Aspartate Amino Transferase 11 U/L (5-37); Bilirubin Direct 0.2 mg/dL (0.0-0.5); Bilirubin Total 0.4 mg/dL (0.0-1.0); Blood Urea Nitrogen 29 mg/dL (9-16); Calcium 7.8 mg/dL (8.4-10.2); Carbon Dioxide 24 mmol/L (22-29); Chloride 106 mmol/L (96-108); Creatinine Clr Calc Pharmacy 38.4; Estimated Glomerular Filt Rate 32; Glucose Random 241 mg/dL (60-115); Lipase 74 U/L (8-78); Potassium 5.3 mmol/L (3.3-5.1); Sodium 137 mmol/L (135-145); Total Protein 5.9 g/dL (6.5-8.0)
--- NOTE | 2021-12-12 21:21 | PC.NURSE ---
HADLEY [phone]
[2021-12-12 21:25] LABS: Troponin-I High Sensitivity 5.7 ng/L (<3.5-35.0)
[2021-12-12 21:41] LABS: Appearance Urine CLEAR; Color Urine YELLOW; Glucose Urine UA NEG (NEG); Leukocyte Esterase Urine NEG (NEG); Nitrite Urine NEG (NEG); Urine Blood NEG (NEG); Urine Ketones NEG (NEG); Urine Protein NEG (NEG-TRACE)
[2021-12-12 21:54] LABS: Amphetamine Screen Urine Not Detected (Not Detect); Barbiturates, Urine Not Detected (Not Detect); Benzodiazepines Screen Urine Not Detected (Not Detect); Cannabinoid Screen Urine POSITIVE (Not Detect); Cocaine Screen Urine POSITIVE (Not Detect); Fentanyl, urine Not Detected (Not Detect); Opiate Screen Urine Not Detected (Not Detect); Phencyclidine Screen Urine Not Detected (Not Detect)
--- NOTE | 2021-12-12 22:07 | PC.NURSE ---
pt up to restroom with steady even gait for urine sample. pt awaiting for dispo.
[2021-12-13] VITALS: BP 122/63; PULSE 58; RESP 16; TEMP 36.6; O2SAT 97
[2021-12-13 00:08] LABS: Anion Gap 13 (12-20); Blood Urea Nitrogen 27 mg/dL (9-16); Calcium 7.7 mg/dL (8.4-10.2); Carbon Dioxide 24 mmol/L (22-29); Chloride 108 mmol/L (96-108); Creatinine Clr Calc Pharmacy 46.6; Estimated Glomerular Filt Rate 40; Glucose Random 198 mg/dL (60-115); Potassium 5.7 mmol/L (3.3-5.1); Sodium 139 mmol/L (135-145)
[2021-12-13] MEDS: Sodium Polystyrene Sulfon/Sorb 15 GM/60 ML ORAL.SUSP 30 GM PO (01:00)
--- NOTE | 2021-12-13 01:15 | PC.NURSE ---
pt medicated as per emar.
== END 2021-12-13 01:35 | disposition home or self-care (01) ==
PROVIDERS: Emergency Provider Emergency Medicine; PCP Internal Medicine
DX: E87.5 Hyperkalemia (principal); F19.10 Other psychoactive substance abuse, uncomplicated; E11.65 Type 2 diabetes mellitus with hyperglycemia; N28.9 Disorder of kidney and ureter, unspecified; I10 Essential (primary) hypertension; Z79.4 Long term (current) use of insulin
CPT/HCPCS: 36415; 71045; 80048; 80076; 80307; 81003; 82077; 82550; 83690; 84484; 85025; 93005; 96360; 96361; 99283; 99284

== ENCOUNTER 2023-05-08 20:00 | Emergency (ER) | payer MEDICARE, OTHER, SELFPAY ==
--- NOTE | ~2023-05-08 | XR_ITS ---
EXAMINATION: XR CHEST CLINICAL INFORMATION: Hypotension, dizzy, syncope. COMPARISON: 12/12/2021 chest radiograph. TECHNIQUE: Frontal view of the chest was obtained. FINDINGS: No significant abnormality is noted involving the heart, lungs, mediastinum, bony thorax or soft tissues. XR/XR chest 1V IMPRESSION: No acute cardiopulmonary process.
[2023-05-08 20:03] VITALS: BP 83/47; PULSE 58; O2SAT 100
--- NOTE | 2023-05-08 20:12 | ECG_ITS ---
Test Reason : DIZZYNESS Blood Pressure : / mmHG Vent. Rate : 057 BPM Atrial Rate : 057 BPM P-R Int : 238 ms QRS Dur : 152 ms QT Int : 492 ms P-R-T Axes : 067 -56 -17 degrees QTc Int : 478 ms Sinus bradycardia with 1st degree A-V block Right bundle branch block Left anterior fascicular block Bifascicular block Minimal voltage criteria for LVH, may be normal variant ( R in aVL ) Abnormal ECG When compared with ECG of 12-DEC-2021 18:59, [place] interval has increased (RBBB and left anterior fascicular block) is now Present Referred By: Generic ED Physician Electronically Signed By:BRIDGER MOROCHO MD
[2023-05-08 20:15] VITALS: BP 110/55; PULSE 54; RESP 12; TEMP 36.5; O2SAT 100; BMI 31.2
[2023-05-08 20:19] VITALS: BP 110/55; PULSE 54; RESP 12; TEMP 36.5; O2SAT 99
[2023-05-08 21:02] LABS: MANUAL DIFF FLAG NO
[2023-05-08 21:03] LABS: Basophils Percent Auto 0.4 % (0-2); Eosinophils Absolute Auto 0.1 X10*3/uL (0.0-0.4); Eosinophils Percent Auto 0.8 % (0-4); Imm Gran Abs Auto 0.06 X10*3/uL (0.00-0.03); Imm Gran Pct Auto 0.5 % (0.0-0.4); Lymphocytes Absolute Auto 2.6 X10*3/uL (1.2-4.9); Lymphocytes Percent Auto 23.6 % (20-40); Mean Corpuscular HGB Conc 32.4 g/dl (31.0-36.0); Mean Corpuscular Volume 89.4 fL (80.0-98.0); Mean Platelet Volume 10.3 fL (9.4-12.4); Monocytes Absolute Auto 0.7 X10*3/uL (0.1-1.2); Monocytes Percent Auto 5.9 % (2-11); Neutrophils Absolute Auto 7.7 x10*3/uL (2.0-8.3); Neutrophils Percent Auto 68.8 % (45-73); Platelet Count 239 X10*3/uL (160-400); Red Blood Count 4.14 X10*6/uL (4.60-5.80); Red Cell Distribution Width 12.8 % (11.0-16.0); White Blood Count 11.1 X10*3/uL (4.8-10.8)
[2023-05-08 21:08] LABS: Prothrombin Time 11.9 SEC (11.1-13.3)
[2023-05-08 21:18] LABS: Anion Gap 16 (12-20); Blood Urea Nitrogen 34 mg/dL (9-16); Calcium 8.8 mg/dL (8.4-10.2); Carbon Dioxide 21 mmol/L (22-29); Chloride 103 mmol/L (96-108); Creatinine Clr Calc Pharmacy 46.5; Estimated Glomerular Filt Rate 43; Glucose Random 207 mg/dL (60-115); Potassium 4.4 mmol/L (3.3-5.1); Sodium 136 mmol/L (135-145)
[2023-05-08 21:20] LABS: Ethanol < 10 mg/dL; Magnesium 1.7 mg/dL (1.6-2.6)
--- NOTE | 2023-05-08 21:22 | ED_ITS ---
HPI - General Adult General Chief complaint: Dizziness Stated complaint: DIZZINESS HYPERTENSIVE Time Seen by Provider: 05/08/23 20:18 Source: patient Mode of arrival: EMS Limitations: no limitations History of Present Illness HPI narrative: patient comes to the emergency room via ambulance. According to the patient, patient was feeling very lightheaded, all while doing yd work. Patient states that he did not fall, did not lose consciousness. Patient was helped by his friend to sit on the floor, no head strike. The patient denies any chest pain or shortness of breath. According to EMS, when they arrived to the patient's friend's house, patient's blood pressure was in the low 70s, given 400 cc of normal saline, blood pressure improved to 83 systolic. When patient arrived to the emergency room, initial blood pressure 110/55. Patient states that he feels a bit tired, no chest pain or shortness of breath, no dizziness or lightheadedness. Patient denies any recent infections. Patient takes medica tion for blood pressure, denies that he accidentally may have overdosed on his blood pressure meds Related Data Previous Rx's Medication Instructions Recorded acetaminophen 500 mg tablet 500 mg PO Q6H PRN fever or pain 05/09/23 #14 tabs ibuprofen 600 mg tablet 600 mg PO TID PRN fever or pain 05/09/23 #14 tabs Allergies Allergy/AdvReac Type Severity Reaction Status Date / Time No Known Allergies Allergy Verified 08/06/20 13:55 Review of Systems Review of Systems: Constitutional : No Weight loss, No Fever, No Chills, No Night Sweats, No Fatigue, No Malaise ENT/Mouth : No Hearing loss, No Ear Pain, No Nasal Congestion, No Sinus Pain, No Hoarseness, No sore throat, No Rhinorrhea, No Swallowing Difficulty Eyes: No Eye Pain, No Swelling, No Redness, No Foreign Body, No Discharge, No Vision Changes Cardiovascular : No Chest Pain, No SOB, No Dyspnea on Exertion, No Orthopnea, No Edema, No Palpitations, near syncope Respiratory : No Cough, No Sputum, No Wheezing, No Smoke Exposure, No Dyspnea Gastrointestinal : No Nausea, No Vomiting, No Diarrhea, No Constipation, No abdominal Pain, No Hematochezia, No Melena Genitourinary : no irregular bleeding, No Dysuria, No Urinary Frequency, No Hematuria, No Urinary Incontinence, No Urgency, No Flank Pain, No Urinary Flow Changes, No Hesitancy Musculoskeletal : No joint pain, No Myalgias, No Joint Swelling Skin : No Skin Lesions, No rash Neuro : No Weakness, No Numbness, No Paresthesias, No Loss of Consciousness, No Dizziness, No Headache Psych : No Anxiety/Panic, No Depression, No SI/HI/AH/VH, No Social Issues, Heme/Lymph: No Bruising, No Bleeding,No Lymphadenopathy Endocrine : No Polyuria, No Polydipsia, No Temperature Intolerance [facility] Past Medical History Medical History Arthritis Diabetes HTN (hypertension) Social History Social History Alcohol intake: never Smoked in Last 30 Days: No Use of substances other than those prescribed or required for medical reasons: No Advance Directives: No Advance Directives Information Provided: Yes Physical Exam ED Vital Signs: Vital Signs - 24 hr 05/08/23 20:15 05/08/23 20:19 05/08/23 21:46 Temperature 97.7 F 97.7 F Pulse Rate 54 54 59 Respiratory Rate 12 12 Blood Pressure 110/55 L 110/55 L 97/48 L Pulse Oximetry 100 99 Oxygen Delivery Method Room Air Room Air 05/08/23 21:46 05/08/23 21:48 05/08/23 22:00 Temperature Pulse Rate 63 63 60 Respiratory Rate 12 Blood Pressure 99/47 L 80/47 L 104/48 L Pulse Oximetry 99 Oxygen Delivery Method Room Air 05/09/23 00:34 05/09/23 01:09 05/09/23 01:52 Temperature Pulse Rate 60 59 58 Respiratory Rate 12 12 Blood Pressure 95/49 L 94/46 L 110/44 L Pulse Oximetry 93 95 Oxygen Delivery Method Room Air Room Air 05/09/23 01:53 05/09/23 01:54 Temperature Pulse Rate 71 71 Respiratory Rate Blood Pressure 117/56 L 109/49 L Pulse Oximetry Oxygen Delivery Method BMI result Body Mass Index 31.2 Const Other: Appearance: Alert. Oriented X3. No acute distress. Eyes: Pupils equal, round and reactive to light. ENT: Pharynx normal. Neck: Normal inspection. Neck supple. No lymph nodes noted. No crepitus CVS: Normal heart rate and rhythm. Pulses normal. Normal S1 and S2 Respiratory: No respiratory distress. Breath sounds normal. No Wheezing. No rales Abdomen: Soft and nontender. No rigidity. No distention. Skin: Skin warm and dry. Normal skin color. Normal skin turgor. Extremities: No lower extremity edema. No Lacerations. No Rash Neuro: Oriented X 3. No motor deficit. No sensory deficit. Moving all extremities. No slurred speech. CN 2 through 12 grossly intact Psych: calm, cooperative, normal affect Medications Administered Generic Name Dose Route Start Last Admin Trade Name Freq PRN Reason Stop Dose Admin Sodium Chloride 1,000 mls @ 999 mls/hr 05/09/23 01:06 05/09/23 01:10 Ns IVCONT 05/09/23 02:06 999 mls/hr .Q1H1M ONE Administration Discontinued Medications Generic Name Dose Route Start Last Admin Trade Name Freq PRN Reason Stop Dose Admin Sodium Chloride 2,000 mls @ 999 mls/hr 05/08/23 22:05 05/09/23 00:25 Ns IVCONT 05/09/23 00:05 Infused .Q2H1M ONE Infusion Medical Decision Making Medical Decision Making MDM Narrative: - my interpretation of EKG: Sinus bradycardia with first-degree AV block, heart rate 57, no ST segment depression or elevation, nonspecific T-wave inversion in lead 3, QTC 478 - my interpretation can of labs:patient's hematology at baseline, Creatinine 1.61, at baseline, troponin negative, BNP 14 - urinalysis and urine tox positive. In the past, patient has tested positive for marijuana and cocaine - my interpretation of chest x-ray: No acute findings, no pneumonia -patient is not short of breath, tachycardic, perfect oxygen saturation 100% on room air. Patient well's criteria score for pulmonary embolism is 0 -after IV fluids, patient's orthostatic vitals remain positive. Patient received more fluids -after 4 L of IV fluids, blood pressure is stable above 110 systolic and orthostatics negative. Patient asymptomatic. -patient complaining of mild knee pain bilaterally, patient able to walk -patient is chest pain of shortness of breath. Patient admits that when he was doing yd work it was very warm and he was not drinking fluids. Likely causing dehydration. Differential Diagnosis Differential Diagnoses: The differential diagnosis associated with the presentation includes ( orthostatic hypotension, dehydration, vasovagal syncope, heart medication overdose, illicit drug overdose) Admission/Observation Consideration of admission/observation: Escalation of care including admission/observation considered ( patient's initial blood pressure was quite low, admission has been considered) Lab Data MDM Lab Attestation statement: I reviewed the patient's lab results. 05/08/23 20:57 05/08/23 20:57 Labs: Lab Results 05/08/23 05/08/23 05/08/23 Range/Units 20:57 20:57 20:57 WBC 11.1 H (4.8-10.8) X10*3/uL RBC 4.14 L (4.60-5.80) X10*6/uL Hgb 12.0 L (14.0-18.0) g/dl Hct 37.0 L (42.0-52.0) % MCV 89.4 (80.0-98.0) fL MCH 29.0 (27.0-33.0) pg MCHC 32.4 (31.0-36.0) g/dl RDW 12.8 (11.0-16.0) % Plt Count 239 (160-400) X10*3/uL MPV 10.3 (9.4-12.4) fL Immature Gran % (Auto) 0.5 H (0.0-0.4) % Neut % (Auto) 68.8 (45-73) % Lymph % (Auto) 23.6 (20-40) % Woodward % (Auto) 5.9 (2-11) % Eos % (Auto) 0.8 (0-4) % Baso % (Auto) 0.4 (0-2) % Lymph # (Auto) 2.6 (1.2-4.9) X10*3/uL Woodward # (Auto) 0.7 (0.1-1.2) X10*3/uL Eos # (Auto) 0.1 (0.0-0.4) X10*3/uL Baso # (Auto) 0.0 (0.0-0.2) X10*3/uL Abs Immat Gran (auto) 0.06 H (0.00-0.03) X10*3/uL Absolute Neuts (auto) 7.7 (2.0-8.3) x10*3/uL Absolute Nucleated RBC 0.000 (0.0-0.012) X10*3/uL Nucleated RBC % (auto) 0.0 (0.0-0.2) /100WBC PT (11.1-13.3) SEC INR (0.9-1.1) Sodium 136 (135-145) mmol/L Potassium 4.4 D (3.3-5.1) mmol/L Chloride 103 (96-108) mmol/L Carbon Dioxide 21 L (22-29) mmol/L Anion Gap 16 (12-20) BUN 34 H (9-16) mg/dL Creatinine 1.61 H (0.5-1.4) mg/dL Estim Creat Clear Calc 46.5 Estimated GFR 43 Random Glucose 207 H (60-115) mg/dL Calcium 8.8 D (8.4-10.2) mg/dL Magnesium (1.6-2.6) mg/dL Troponin I High Sens 4.9 (<3.5-35.0) ng/L B-Natriuretic Peptide (<100) pg/mL Urine Color Urine Appearance Urine pH (5.0-9.0) Ur Specific Morris (1.005-1.025) Urine Protein (Neg-Trace) mg/dL Urine Glucose (UA) (Negative) mg/dL Urine Ketones (Negative) mg/dL Urine Blood (Negative) Urine Nitrite (Negative) Ur Leukocyte Esterase (Negative) Urine Opiates Screen (Not Detect) Urine Fentanyl Screen (Not Detect) Ur Barbiturates Screen (Not Detect) Ur Phencyclidine Scrn (Not Detect) Ur Amphetamines Screen (Not Detect) U Benzodiazepines Scrn (Not Detect) Urine Cocaine Screen (Not Detect) U Marijuana (THC) Screen (Not Detect) Ethyl Alcohol mg/dL 05/08/23 05/08/23 05/08/23 Range/Units 20:57 20:57 20:57 WBC (4.8-10.8) X10*3/uL RBC (4.60-5.80) X10*6/uL Hgb (14.0-18.0) g/dl Hct (42.0-52.0) % MCV (80.0-98.0) fL MCH (27.0-33.0) pg MCHC (31.0-36.0) g/dl RDW (11.0-16.0) % Plt Count (160-400) X10*3/uL MPV (9.4-12.4) fL Immature Gran % (Auto) (0.0-0.4) % Neut % (Auto) (45-73) % Lymph % (Auto) (20-40) % Woodward % (Auto) (2-11) % Eos % (Auto) (0-4) % Baso % (Auto) (0-2) % Lymph # (Auto) (1.2-4.9) X10*3/uL Woodward # (Auto) (0.1-1.2) X10*3/uL Eos # (Auto) (0.0-0.4) X10*3/uL Baso # (Auto) (0.0-0.2) X10*3/uL Abs Immat Gran (auto) (0.00-0.03) X10*3/uL Absolute Neuts (auto) (2.0-8.3) x10*3/uL Absolute Nucleated RBC (0.0-0.012) X10*3/uL Nucleated RBC % (auto) (0.0-0.2) /100WBC PT 11.9 (11.1-13.3) SEC INR 1.0 (0.9-1.1) Sodium (135-145) mmol/L Potassium (3.3-5.1) mmol/L Chloride (96-108) mmol/L Carbon Dioxide (22-29) mmol/L Anion Gap (12-20) BUN (9-16) mg/dL Creatinine (0.5-1.4) mg/dL Estim Creat Clear Calc Estimated GFR Random Glucose (60-115) mg/dL Calcium (8.4-10.2) mg/dL Magnesium 1.7 (1.6-2.6) mg/dL Troponin I High Sens (<3.5-35.0) ng/L B-Natriuretic Peptide 14 (<100) pg/mL Urine Color Urine Appearance Urine pH (5.0-9.0) Ur Specific Morris (1.005-1.025) Urine Protein (Neg-Trace) mg/dL Urine Glucose (UA) (Negative) mg/dL Urine Ketones (Negative) mg/dL Urine Blood (Negative) Urine Nitrite (Negative) Ur Leukocyte Esterase (Negative) Urine Opiates Screen (Not Detect) Urine Fentanyl Screen (Not Detect) Ur Barbiturates Screen (Not Detect) Ur Phencyclidine Scrn (Not Detect) Ur Amphetamines Screen (Not Detect) U Benzodiazepines Scrn (Not Detect) Urine Cocaine Screen (Not Detect) U Marijuana (THC) Screen (Not Detect) Ethyl Alcohol < 10 mg/dL 05/09/23 05/09/23 Range/Units 00:38 00:38 WBC (4.8-10.8) X10*3/uL RBC (4.60-5.80) X10*6/uL Hgb (14.0-18.0) g/dl Hct (42.0-52.0) % MCV (80.0-98.0) fL MCH (27.0-33.0) pg MCHC (31.0-36.0) g/dl RDW (11.0-16.0) % Plt Count (160-400) X10*3/uL MPV (9.4-12.4) fL Immature Gran % (Auto) (0.0-0.4) % Neut % (Auto) (45-73) % Lymph % (Auto) (20-40) % Woodward % (Auto) (2-11) % Eos % (Auto) (0-4) % Baso % (Auto) (0-2) % Lymph # (Auto) (1.2-4.9) X10*3/uL Woodward # (Auto) (0.1-1.2) X10*3/uL Eos # (Auto) (0.0-0.4) X10*3/uL Baso # (Auto) (0.0-0.2) X10*3/uL Abs Immat Gran (auto) (0.00-0.03) X10*3/uL Absolute Neuts (auto) (2.0-8.3) x10*3/uL Absolute Nucleated RBC (0.0-0.012) X10*3/uL Nucleated RBC % (auto) (0.0-0.2) /100WBC PT (11.1-13.3) SEC INR (0.9-1.1) Sodium (135-145) mmol/L Potassium (3.3-5.1) mmol/L Chloride (96-108) mmol/L Carbon Dioxide (22-29) mmol/L Anion Gap (12-20) BUN (9-16) mg/dL Creatinine (0.5-1.4) mg/dL Estim Creat Clear Calc Estimated GFR Random Glucose (60-115) mg/dL Calcium (8.4-10.2) mg/dL Magnesium (1.6-2.6) mg/dL Troponin I High Sens (<3.5-35.0) ng/L B-Natriuretic Peptide (<100) pg/mL Urine Color Yellow Urine Appearance Clear Urine pH 6.0 (5.0-9.0) Ur Specific Morris 1.015 (1.005-1.025) Urine Protein Negative (Neg-Trace) mg/dL Urine Glucose (UA) 250 H (Negative) mg/dL Urine Ketones Negative (Negative) mg/dL Urine Blood Negative (Negative) Urine Nitrite Negative (Negative) Ur Leukocyte Esterase Negative (Negative) Urine Opiates Screen Not Detected (Not Detect) Urine Fentanyl Screen Not Detected (Not Detect) Ur Barbiturates Screen Not Detected (Not Detect) Ur Phencyclidine Scrn Not Detected (Not Detect) Ur Amphetamines Screen Not Detected (Not Detect) U Benzodiazepines Scrn Not Detected (Not Detect) Urine Cocaine Screen Not Detected (Not Detect) U Marijuana (THC) Screen Not Detected (Not Detect) Ethyl Alcohol mg/dL Independent Interpretation I performed an independent interpretation of an: EKG and Plain X-Ray Radiology Impression Discussion of test interpretation with radiology: I have reviewed the radiolog ist's reading. Radiologist Impression: FINDINGS: No significant abnormality is noted involving the heart, lungs, mediastinum, bony thorax or soft tissues. XR/XR chest 1V IMPRESSION: No acute cardiopulmonary process. Independent Historian Clinical information obtained from an independent historian. History obtained from or confirmed by: Spouse Critical Care Time Critical Care Time Critical Care Time: Yes Total Critical Care Time: 60 Attestation: I have personally provided critical care time. Time includes review of lab data, radiology results, discussion with consultants, and monitoring for potential decompensation. Intervention performed as documented. Discharge Plan Discharge Clinical Impression: Orthostatic hypotension, Dehydration Patient Disposition: Home, Self-Care Instructions: Dehydration (ED) Additional Instructions: Please follow-up with your primary care physician tomorrow. If you have any worsening or new symptoms, please return to the emergency room or call 911 Prescriptions: New acetaminophen 500 mg tablet 500 mg PO Q6H PRN (Reason: fever or pain) Qty: 14 0RF ibuprofen 600 mg tablet 600 mg PO TID PRN (Reason: fever or pain) Qty: 14 0RF
[2023-05-08 21:26] LABS: B Type Natriuretic Peptide 14 pg/mL (<100); Troponin-I High Sensitivity 4.9 ng/L (<3.5-35.0)
[2023-05-08 21:46] VITALS: BP 97/48; BP 99/47; PULSE 59; PULSE 63
[2023-05-08 21:48] VITALS: BP 80/47; PULSE 63
[2023-05-08 22:00] VITALS: BP 104/48; PULSE 60; RESP 12; O2SAT 99
[2023-05-08] MEDS: 0.9 % Sodium Chloride 2,000 ML 999 ML IVCONT (22:08)
[2023-05-09 00:34] VITALS: BP 95/49; PULSE 60; RESP 12; O2SAT 93
[2023-05-09 00:44] LABS: Appearance Urine Clear; Color Urine Yellow; Glucose Urine UA 250 mg/dL (Negative); Leukocyte Esterase Urine Negative (Negative); Nitrite Urine Negative (Negative); Specific Gravity - Urine 1.015 (1.005-1.025); Urine Blood Negative (Negative); Urine Ketones Negative (Negative); Urine Protein Negative (Neg-Trace)
[2023-05-09 01:03] LABS: Amphetamine Screen Urine Not Detected (Not Detect); Barbiturates, Urine Not Detected (Not Detect); Benzodiazepines Screen Urine Not Detected (Not Detect); Cannabinoid Screen Urine Not Detected (Not Detect); Cocaine Screen Urine Not Detected (Not Detect); Fentanyl, urine Not Detected (Not Detect); Opiate Screen Urine Not Detected (Not Detect); Phencyclidine Screen Urine Not Detected (Not Detect)
[2023-05-09 01:09] VITALS: BP 94/46; PULSE 59; RESP 12; O2SAT 95
[2023-05-09] MEDS: 0.9 % Sodium Chloride 1,000 ML 999 ML IVCONT (01:10)
[2023-05-09 01:52] VITALS: BP 110/44; PULSE 58
[2023-05-09 01:53] VITALS: BP 117/56; PULSE 71
[2023-05-09 01:54] VITALS: BP 109/49; PULSE 71
[2023-05-09] MEDS: Ibuprofen 600 MG TABLET PO (02:16)
[2023-05-09] MEDS: Acetaminophen 325 MG TABLET 975 MG PO (02:16)
== END 2023-05-09 02:33 | disposition home or self-care (01) ==
PROVIDERS: Emergency Provider Emergency Medicine; PCP Internal Medicine
DX: I95.1 Orthostatic hypotension (principal); R00.1 Bradycardia, unspecified; R42 Dizziness and giddiness; E86.0 Dehydration; R06.02 Shortness of breath; R11.2 Nausea with vomiting, unspecified; Z79.899 Other long term (current) drug therapy
CPT/HCPCS: 36415; 71045; 80048; 80307; 81003; 83735; 83880; 84484; 85025; 85610; 93005; 96360; 96361; 99284; 99285

== ENCOUNTER → 2023-05-08 20:12 | Outpatient (BNV) | payer MEDICARE, MEDICAID, SELFPAY | PROVIDERS: Emergency Provider Emergency Medicine; PCP Internal Medicine; Visit Provider Internal Medicine Cardiovascular Disease | DX: R42 Dizziness and giddiness (principal) | CPT/HCPCS: 93010 ==

== ENCOUNTER 2023-05-23 11:10 | Outpatient (REF) | payer MEDICARE, MEDICAID, SELFPAY ==
[2023-05-23 14:38] LABS: Cholesterol 129 mg/dL; HDL Cholesterol 38 mg/dL; LDL Cholesterol Calculated 73 mg/dl; Triglycerides 91 mg/dL
[2023-05-23 15:15] LABS: Reflex LDLD? No
[2023-05-23 15:17] LABS: Alanine Aminotransferase 14 U/L (0-40); Alkaline Phosphatase 64 U/L (39-117); Anion Gap 13 (12-20); Aspartate Amino Transferase 16 U/L (5-37); Bilirubin Total 0.5 mg/dL (0.0-1.0); Blood Urea Nitrogen 28 mg/dL (9-16); Calcium 9.5 mg/dL (8.4-10.2); Carbon Dioxide 23 mmol/L (22-29); Chloride 107 mmol/L (96-108); Estimated Glomerular Filt Rate > 60; Glucose Random 149 mg/dL (60-115); Potassium 4.6 mmol/L (3.3-5.1); Sodium 138 mmol/L (135-145); Total Protein 7.5 g/dL (6.5-8.0)
[2023-05-23 15:21] LABS: Vitamin D 25-OH Total 22.8 ng/mL (>30)
[2023-05-23 17:14] LABS: Creatinine Urine 68.04 mg/dL; Microalbum/Creatinine Ratio Ur 17.6 ug/mg cr
[2023-05-24 03:29] LABS: Syphilis Screen Nonreactive (Nonreactive)
[2023-05-24 04:11] LABS: HBS Num1 193.36 mIU/mL (0-7.99); HBc Num1 4.25 S/CO (0.00-0.79); HBsAGNum1 0.39 S/CO (0.00-0.99); Hepatitis A Antibody IgM 0.32 Index (0-0.79); Hepatitis B Surface Antigen Negative (Negative); ~HepC Num1 0.06 S/CO (0.00-0.79); ~Hepatitis A Antibody IgM Nonreactive (Nonreactive); ~Hepatitis B Surface Antibody REACTIVE (Nonreactive); ~Hepatitis C Antibody Nonreactive (Nonreactive)
[2023-05-24 04:57] LABS: HBc Num2 4.24 S/CO; HBc Num3 4.19 S/CO; Hepatitis B Core Antibody Reactive (Nonreactive)
[2023-05-26 16:33] LABS: TS Negative Control Passed; TS Panel A 2; TS Panel B 1; TS Positive Control Passed; TSpotTB Negative (Negative)
== END 2023-05-23 11:11 | disposition home or self-care (01) ==
LOC: HO.HHCL 11:10
PROVIDERS: Visit Provider Internal Medicine
DX: Z00.00 Encounter for general adult medical examination without abnormal findings (principal); E11.65 Type 2 diabetes mellitus with hyperglycemia; I10 Essential (primary) hypertension; Z79.4 Long term (current) use of insulin; R06.09 Other forms of dyspnea; E78.5 Hyperlipidemia, unspecified; M10.00 Idiopathic gout, unspecified site; E55.9 Vitamin D deficiency, unspecified; M47.816 Spondylosis without myelopathy or radiculopathy, lumbar region
CPT/HCPCS: 36415; 80053; 80061; 82043; 82306; 86481; 86704; 86706; 86709; 86780; 86803; 87340

== ENCOUNTER 2023-05-23 11:34 | Outpatient (REF) | payer MEDICARE, OTHER, SELFPAY ==
--- NOTE | ~2023-05-23 | XR_ITS ---
EXAMINATION: XR SHOULDER, LEFT CLINICAL INFORMATION: Pain in left shoulder COMPARISON: None available. TECHNIQUE: AP external rotation, Grashey, scapular Y, and axillary views of the left shoulder. FINDINGS: There is cephalad migration of left humeral head due to rotator cuff tear. There is narrowing of the gallbladder glenohumeral joint with marginal spurring medially extending from the left femoral head. Acromioclavicular joint reveals marginal spurring. Soft tissues are unremarkable. XR/XR shoulder LT min 2V IMPRESSION: 1. 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 2. Rotator cuff tear.
== END 2023-05-23 11:35 | disposition home or self-care (01) ==
LOC: HO.HHCX 11:34
PROVIDERS: Visit Provider Internal Medicine
DX: M13.812 Other specified arthritis, left shoulder (principal)
CPT/HCPCS: 73030

== ENCOUNTER 2023-05-28 19:16 | Outpatient (REF) | payer MEDICARE, MEDICAID, SELFPAY ==
[2023-05-28 20:05] LABS: Influenza A PCR NEGATIVE (Negative); Influenza B PCR NEGATIVE (Negative); Resp Syncy Virus RNA Qual PCR NEGATIVE (Negative); SARS COV2 PCR INHOUSE NEGATIVE (Negative)
== END 2023-05-28 19:17 | disposition home or self-care (01) ==
LOC: HO.HHCLNP 19:16
PROVIDERS: Visit Provider Internal Medicine
DX: R05.9 Cough, unspecified (principal); Z20.822 Contact with and (suspected) exposure to COVID-19
CPT/HCPCS: 0241U

== ENCOUNTER 2023-07-01 13:56 | Outpatient (AMB) | payer MEDICARE, MEDICAID, SELFPAY ==
--- NOTE | 2023-07-01 14:00 | MHC.OFFVIS ---
Intake Vital Signs 07/01/23 14:02 Height 5 ft 8 in Weight 189 lb 9.561 oz BMI 28.8 BP 129/74 Blood Pressure Location Lt brachial Position Sitting Pulse 72 Intake Visit Reasons: Colonoscopy Screening Intake Note: Marin presents in the office as a new patient for colonoscopy screening. CC: He states that he is not having any concerns today he is just due for a colonoscopy. [employer] Required: No Allergies No Known Allergies Allergy (Verified 07/01/23 14:03) HPI Colonoscopy Screening HPI Details LAST COLONOSCOPY 03/12/2019 Findings: ileo colonic anastomosis Ángel- Terminal Ileum ? erosions noted, bx taken Ascending Colon ? 8-10 mm sessile polyp noted and removed with cold snare Transverse Colon - normal Descending Colon ? normal Sigmoid Colon ? few small diverticula seen, otherwise normal Rectum ? moderate internal hemorrhoids Ano-rectum - normal Colon preparation: good Impression and Post Procedure Diagnosis: Colonoscopy Findings: hemorrhoids diverticula ileitis Plan: Await pathology results confirm nsaid history Repeat Colonoscopy interval based on path results ? in 3-5 years if polyps are adenomatous and 10 years if polyps are hyperplastic. miht need Mre vs CTe or VCE PATHOLOGY RESULTS Sessile serrated polyps found without high-grade dysplasia or carcinoma TODAY'S VISIT: 72-year-old male with past medical history diabetes, gout, hypertension, hyperlipidemia, asthma is here for evaluation before going for colonoscopy. Patient had colonoscopy in 2019, see above findings. Patient denies any melena, hematochezia, unintentional weight loss or ribbon like stools patient denies any dyspepsia, dysphagia or odynophagia. Patient denies any issues with anesthesia in the past. No history of sleep apnea patient is on low-dose aspirin. No history of infectious diseases in the past or present. Patient denies any cardiac or respiratory symptoms. [facility] Medical History Arthritis Diabetes HTN (hypertension) Surgical History (Updated 07/30/23 @ 15:30 [facility] History of bowel resection Hx of colonoscopy Social History Alcohol intake: never Review of Systems Const Denies weight gain and Denies weight loss ENT Reports no additional complaints, Denies dysphagia and Denies odynophagia Card Reports no additional complaints Resp Reports no additional complaints GI Denies abdominal pain, Denies belching, Denies melena, Denies bloating, Denies change in bowel habits, Denies dysphagia, Denies excessive flatus, Denies dyspepsia, Denies heartburn, Denies diarrhea, Denies loose stools, Denies nausea, Denies odynophagia and Denies vomiting Reports no additional complaints Musc Reports no additional complaints Neuro Reports no additional complaints Psych Reports no additional complaints Endo Reports no additional complaints Physical Exam Vital Signs: Last Vital Signs Pulse 72 07/01/23 14:02 BP 129/74 07/01/23 14:02 BMI result Body Mass Index 28.8 Const General: healthy appearing, no acute distress and well developed Nutritional Appearance: well nourished Orientation/consciousness: patient oriented x3 HEENT Head: Yes normal to inspection, Yes normocephalic and Yes atraumatic Face and sinus: Yes normal facial exam Mouth: Normal oral and palatal mucosa present Throat: Yes posterior oropharynx normal, Yes tonsils normal and Yes uvula midline Eyes General: appearance normal, both eyes and all related structures Neck Neck: Yes normal visual inspection, Yes full ROM and Yes trachea midline Thyroid: Thyroid normal Resp Effort & Inspection: normal respiratory effort, able to speak in complete sentences, no tracheal deviation and symmetric chest movement Auscultation: clear to auscultation bilaterally Cardio Rate: regular rate Heart sounds: S1 normal heart sound present and S2 normal heart sound present GI Other: Vertical postsurgical scar on his abdomen Inspection: No distended Palpation (GI): Soft to palpation, not firm, nontender and No hepatosplenomegaly present Auscultation: normal bowel sounds General: Yes no CVA tenderness Back/Spine/Pelvis Back: no CVA tenderness Skin General skin exam: elasticity normal, turgor normal and dry skin Neuro General: patient oriented x3 Psych Appearance: grossly normal Mental Status: mental status grossly normal Speech and movement: Normal speech and movement present Affect: normal affect Attitude: cooperative Thought process: Normal thought process present Thought content: Normal thought content present Insight: Good insight present (Psych) Judgement: Good judgement present (Psych) Assessment & Plan Assessment & Plan (1) History of bowel resection: Code(s): Z90.49 - Acquired absence of other specified parts of digestive tract (2) Screen for colon cancer: Code(s): Z12.11 - Encounter for screening for malignant neoplasm of colon Plan: Patient denies any GI, cardiac or respiratory symptoms.? History of intussusception, emergency bowel resection. Large vertical scar on his abdomen. Patient is moving his bowels well without any issues. Last colonoscopy was done in February of 2019. Denies any issues with anesthesia in the past.? Denies any history of sleep apnea.? No history infectious diseases in the past or present.? On low-dose aspirin.? No family or personal history of colon cancer or polyps.? Patient denies melena, hematochezia, unintentional weight loss or ribbon like stools.? Discussed at length the pre-procedure,? prep, diet & medications as well as what to expect prior, during and after the procedure.?? Stressed the importance of good bowel prep. ?Recommended the use of Vaseline or Calmoseptine OTC & baby wipes with bowel movements to promote comfort.? ?Patient verbalizes understanding and agrees to plan of care.? He was given the opportunity to ask questions and all questions answered.? We will see him after the procedure.? Medications: New polyethylene glycol 3350 (Miralax) As directed by gastroenterology department at [facility] 238 grams PO ONCE 238 grams 0RF Z12.11 - Encounter for screening for malignant neoplasm of colon bisacodyl (Dulcolax (bisacodyl)) take 2 tabs at noon the day before your colonoscopy 10 mg (2 x 5 mg) PO ONCE 2 tabs 0RF 1 day Z12.11 - Encounter for screening for malignant neoplasm of colon Coding Level of Care Code New Pt Level 3 (28984) Diagnoses History of bowel resection Z90.49 Screen for colon cancer Z12.11 Time Spent (min) 40 Comment 30 minutes spent with patient and additional 10 minutes spent reviewing his records.
[2023-07-01 14:02] VITALS: BP 129/74; PULSE 72; BMI 28.8
== END 2023-07-01 15:09 | disposition home or self-care (01) ==
PROVIDERS: PCP Internal Medicine; Visit Provider Nurse Practitioner Family
DX: Z90.49 Acquired absence of other specified parts of digestive tract (principal); Z12.11 Encounter for screening for malignant neoplasm of colon
CPT/HCPCS: 99203

== ENCOUNTER → 2023-07-01 13:56 | Outpatient (BNVA) | payer MEDICARE, MEDICAID, SELFPAY | PROVIDERS: PCP Internal Medicine; Visit Provider Nurse Practitioner Family ==

== ENCOUNTER 2023-08-13 13:50 | Outpatient (REF) | payer MEDICARE, OTHER, SELFPAY ==
--- NOTE | ~2023-08-13 | XR_ITS ---
EXAMINATION: XR TOES, RIGHT CLINICAL INFORMATION: Comparison I second toe assess for osteomyelitis. COMPARISON: None available. TECHNIQUE: 3 views of the right toes were obtained. FINDINGS: Soft tissue swelling second toe with air droplet distally bones are intact without erosive change to suggest osteomyelitis. XR/XR toe RT min 2V IMPRESSION: Second toe soft tissue findings. No radiographic evidence of osteomyelitis
== END 2023-08-13 13:51 | disposition home or self-care (01) ==
LOC: HO.HHCX 13:50
PROVIDERS: Visit Provider Internal Medicine
DX: L03.031 Cellulitis of right toe (principal)
CPT/HCPCS: 73660

== ENCOUNTER 2023-12-14 12:17 | Inpatient (IN) | payer MEDICARE, OTHER, SELFPAY ==
--- NOTE | ~2023-12-14 | US_ITS ---
EXAMINATION: Ultrasound arterial duplex lower extremity right CLINICAL INFORMATION: Nonhealing right toe infection. Hypertension and diabetes. TECHNIQUE: duplex Doppler techniques with wave form analysis and measurement of velocities in the common femoral, profunda femoral, superficial femoral, popliteal and tibial arteries on the right. The study was performed only at rest. COMPARISON: None FINDINGS: a) AT REST: RIGHT LE. Right direct duplex Doppler findings: Luminal narrowing of the distal superficial femoral artery and collateral vessel. * Common femoral artery: 148 cm/s, Diastolic flow reversal: Yes * Superficial femoral artery (proximal, mid, distal): 153, 116 and 101 cm/s, Diastolic flow reversal: Biphasic and triphasic flow * Popliteal artery: 82 cm/s, Diastolic flow reversal: Yes * Posterior tibial artery: 108 cm/s, Diastolic flow reversal: Yes The right anterior tibial artery and dorsalis pedis artery are patent. Peroneal artery not visualized. US/US arterial duplex LE RT IMPRESSION: Mild atherosclerotic disease. Mild narrowing distal superficial femoral artery and collateral vessel.
--- NOTE | ~2023-12-14 | XR_ITS ---
EXAMINATION: XR FOOT, RIGHT CLINICAL INFORMATION: Rule out osteomyelitis. COMPARISON: Radiograph right foot 08/13/2023. TECHNIQUE: AP, lateral, and oblique views of the right foot. FINDINGS: New erosive changes and cortical deformity in the distal phalanx of the second toe, suspicious for osteomyelitis with overlying soft tissue swelling and possibly ulceration. Stable advanced arthritis of the tarsometatarsal joints, not significantly changed. Severe diffuse soft tissue swelling. Moderate vascular calcifications. XR/XR foot RT min 3V IMPRESSION: Findings suspicious for osteomyelitis in the distal second phalanx.
[2023-12-14 12:29] VITALS: BP 138/55; PULSE 83; RESP 16; TEMP 36.6; O2SAT 97; BMI 35.0
--- NOTE | 2023-12-14 12:41 | ED_ITS ---
HPI - General Adult General Chief complaint: Wound/Laceration Stated complaint: Pain in leg/foot Time Seen by Provider: 12/14/23 16:25 Source: patient Mode of arrival: ambulatory Limitations: no limitations History of Present Illness HPI narrative: 72-year-old male history of diabetes presents to ED for right 2nd toe infection. Patient states he had a wound that was not healing and he put the scab off and then toe became red and swollen and wound is not healing. Patient states his glucose has been controlled. Patient states chronic swelling of bilateral lower extremities. Patient denies any recent long travel or recent surgery. Patient denies any chest pain or shortness of breath. Related Data Home Medications Medication Instructions Recorded Confirmed albuterol sulfate 90 mcg/actuation 2 puff inhalation Q4-6H PRN 07/01/23 12/14/23 aerosol inhaler (Ventolin HFA) Shortness Of Breath Or Wheezing allopurinol 100 mg tablet 200 mg PO DAILY 07/01/23 amlodipine 10 mg tablet 10 mg PO DAILY 07/01/23 aspirin 81 mg tablet,delayed 81 mg PO QPM 07/01/23 release atorvastatin 10 mg tablet 10 mg PO DAILY 07/01/23 blood sugar diagnostic ([employer] #10 ea 07/01/23 Ultra Test strips) chlorthalidone 25 mg tablet 25 mg PO DAILY 07/01/23 citalopram 20 mg tablet 20 mg PO DAILY 07/01/23 fluticasone propionate 220 1 puff inhalation BID PRN 07/01/23 12/14/23 mcg/actuation HFA aerosol inhaler Shortness Of Breath Or Wheezing (Flovent HFA) gabapentin 600 mg tablet mg PO 07/01/23 insulin detemir U-100 100 unit/mL 5 unit subcut QAM 07/01/23 12/14/23 (3 mL) subcutaneous pen (Levemir FlexPen) lisinopril 40 mg tablet 40 mg PO DAILY 07/01/23 metformin 1,000 mg tablet 1,000 mg PO BID 07/01/23 montelukast 10 mg tablet 10 mg PO DAILY 07/01/23 acetaminophen 500 mg tablet 500 mg PO Q6H PRN mild pain 12/14/23 12/14/23 fluticasone propionate 50 1 spray intranasal DAILY PRN 12/14/23 12/14/23 mcg/actuation nasal Allergy Symptoms spray,suspension insulin detemir U-100 100 unit/mL 10 - 15 unit subcut QPM 12/14/23 12/14/23 (3 mL) subcutaneous pen (Levemir FlexPen) Previous Rx's Medication Instructions Recorded bisacodyl 5 mg tablet,delayed 10 mg (2 x 5 mg) PO ONCE 1 day #2 07/01/23 release (Dulcolax (bisacodyl)) tabs Allergies Allergy/AdvReac Type Severity Reaction Status Date / Time No Known Allergies Allergy Verified 07/01/23 14:03 Review of Systems 2 Review of Systems: Right second toe erythematous swelling. Yes all other systems are reviewed and are negative [facility] Past Medical History Medical History (Updated 12/15/23 @ 00:41 by DANNIELLE Deal) HLD (hyperlipidemia) Gout Arthritis Diabetes HTN (hypertension) Surgical History History of bowel resection Hx of colonoscopy Social History Social History Alcohol intake: never Patient Tobacco Use Status: Former Tobacco user Smoked in Last 30 Days: No Use of substances other than those prescribed or required for medical reasons: No Advance Directives: No Advance Directives Information Provided: Yes Nutrition Risks: No Nutritional Risk Physical Exam ED Vital Signs: Vital Signs - 24 hr 12/14/23 12:29 12/14/23 15:03 Temperature 97.8 F 97.9 F Pulse Rate 83 78 Respiratory Rate 16 16 Blood Pressure 138/55 L 139/65 Pulse Oximetry 97 100 Oxygen Delivery Method Room Air Room Air BMI result Body Mass Index 35.0 Const General: cooperative, healthy appearing, comfortable, no acute distress, well developed, alert, awake and Physically active Orientation/consciousness: oriented to person, oriented to place, oriented to time and patient oriented x3 HENMT Head: Yes normal to inspection, Yes No palpable skull fracture present, Yes normocephalic and Yes atraumatic Eyes General: appearance normal, both eyes and all related structures Neck Neck: Yes normal visual inspection, Yes full ROM, Yes no lymphadenopathy, Yes no meningeal signs, Yes trachea midline, Yes supple, No anterior neck swelling and No tender Chest Chest palpation & inspection: normal inspection of the chest and normal palpation of entire chest wall Resp Effort & Inspection: normal respiratory effort and able to speak in complete sentences Auscultation: clear to auscultation bilaterally Cardio Jugular venous distension: no JVD Heart sounds: S1 normal heart sound present and S2 normal heart sound present GI Inspection: Yes normal to inspection and No abdominal wall ecchymosis Palpation (GI): Soft to palpation, not firm, nontender, no guarding and not rigid General: Yes no CVA tenderness Back/Spine/Pelvis Back: no CVA tenderness and No back tenderness Skin General skin exam: no rashes or lesions noted and elasticity normal Neuro General: oriented to person, oriented to place, oriented to time, patient oriented x3, gait normal, tone normal, moves all extremities, Normal light touch and pain sensation, no meningeal signs, no focal motor deficits, CN's II-XI intact bilaterally and normal sensation to monofilament Extrem Other: Psych Appearance: grossly normal, well kempt and not disheveled Course Course Course Narrative: RME- 72 year old male presents for evaluation of right foot pain, redness. He reports a skin injury about a month ago that never fully healed. Plan for cellulitis workup Medications Administered Generic Name Dose Route Start Last Admin Trade Name Freq PRN Reason Stop Dose Admin Enoxaparin Sodium 40 mg 12/14/23 18:15 12/14/23 19:43 Enoxaparin Sodium 40 Mg/0.4 Ml Syringe SUBCUT 40 mg Q24H THEA Administration Insulin Human Lispro 0 unit 12/14/23 21:00 12/14/23 21:10 Insulin Lispro 100 Unit/Ml 3 Ml Vial SUBCUT 2 unit QIDACHS THEA Administration Protocol Discontinued Medications Generic Name Dose Route Start Last Admin Trade Name Freq PRN Reason Stop Dose Admin Piperacillin Sod/Tazobactam 50 mls @ 100 mls/hr 12/14/23 16:27 12/14/23 19:08 Sod 3.375 gm/ Sodium Chloride IV 12/14/23 16:56 Infused ONCE ONE Infusion Vancomycin HCl 2,000 mg in 500 mls @ 250 mls/hr 12/14/23 18:23 12/14/23 21:50 Vancomycin/Ns IV 12/14/23 20:22 Infused ONCE ONE Infusion Sodium Zirconium Cyclosilicate 10 gm 12/14/23 18:27 12/14/23 19:43 Sodium Zirconium Cyclosilicate 10 Gm Powd.Pack PO 12/14/23 18:28 10 gm ONCE ONE Administration Medical Decision Making Medical Decision Making [facility] Narrative: 72-year-old male history of diabetes presents to the ED for right foot infection. Patient well-appearing. Patient history of diabetes glucose controlled. Initial x-ray shows osteomyelitis. Patient started on antibiotics. 10:00pm: Patient admitted for osteomyelitis. Differential Diagnosis Differential Diagnoses: The differential diagnosis associated with the presentation includes (Osteomyelitis. Cellulitis. Diabetic foot) Admission/Observation Consideration of admission/observation: Escalation of care including admission/observation considered Consult Healthcare Provider Management of the patient was discussed with: Hospitalist (Dr. Child) Lab Data [facility] Lab Attestation statement: I reviewed the patient's lab results. 12/14/23 12:57 12/14/23 12:56 Labs: Lab Results 12/14/23 12/14/23 Range/Units 12:56 12:57 WBC 9.0 (4.8-10.8) X10*3/uL RBC 3.88 L (4.60-5.80) X10*6/uL Hgb 11.1 L (14.0-18.0) g/dl Hct 34.6 L (42.0-52.0) % MCV 89.2 (80.0-98.0) fL MCH 28.6 (27.0-33.0) pg MCHC 32.1 (31.0-36.0) g/dl RDW 14.0 (11.0-16.0) % Plt Count 203 (160-400) X10*3/uL MPV 10.4 (9.4-12.4) fL Immature Gran % (Auto) 0.3 (0.0-0.4) % Neut % (Auto) 64.1 (45-73) % Lymph % (Auto) 26.3 (20-40) % [place] % (Auto) 6.3 (2-11) % Eos % (Auto) 2.7 (0-4) % Baso % (Auto) 0.3 (0-2) % Lymph # (Auto) 2.4 (1.2-4.9) X10*3/uL [place] # (Auto) 0.6 (0.1-1.2) X10*3/uL Eos # (Auto) 0.2 (0.0-0.4) X10*3/uL Baso # (Auto) 0.0 (0.0-0.2) X10*3/uL Abs Immat Gran (auto) 0.03 (0.00-0.03) X10*3/uL Absolute Neuts (auto) 5.7 (2.0-8.3) x10*3/uL Absolute Nucleated RBC 0.000 (0.0-0.012) X10*3/uL Nucleated RBC % (auto) 0.0 (0.0-0.2) /100WBC ESR 19 H (0-15) MM/HR Sodium 136 (135-145) mmol/L Potassium 5.3 H (3.3-5.1) mmol/L Chloride 109 H (96-108) mmol/L Carbon Dioxide 22 (22-29) mmol/L Anion Gap 10 L (12-20) BUN 29 H (9-16) mg/dL Creatinine 0.98 (0.5-1.4) mg/dL Estim Creat Clear Calc 80.9 Estimated GFR > 60 Random Glucose 165 H (60-115) mg/dL Lactic Acid 1.5 (0.5-2.0) mmol/L Calcium 8.5 D (8.4-10.2) mg/dL C-Reactive Protein 1.50 H (< or = 0.50) mg/dL Independent Interpretation I performed an independent interpretation of an: Plain X-Ray Radiology Impression Discussion of test interpretation with radiology: I have reviewed the radiologist's reading. External Record Review External record reviewed: Other (prior visit) Discharge Plan Discharge Clinical Impression: Osteomyelitis of toe of right foot Patient Disposition: Admitted As Inpatient
[2023-12-14 13:02] LABS: MANUAL DIFF FLAG NO
[2023-12-14 13:04] LABS: Basophils Percent Auto 0.3 % (0-2); Eosinophils Absolute Auto 0.2 X10*3/uL (0.0-0.4); Eosinophils Percent Auto 2.7 % (0-4); Hematocrit 34.6 % (42.0-52.0); Hemoglobin 11.1 g/dl (14.0-18.0); Imm Gran Abs Auto 0.03 X10*3/uL (0.00-0.03); Imm Gran Pct Auto 0.3 % (0.0-0.4); Lymphocytes Absolute Auto 2.4 X10*3/uL (1.2-4.9); Lymphocytes Percent Auto 26.3 % (20-40); Mean Corpuscular HGB Conc 32.1 g/dl (31.0-36.0); Mean Corpuscular Hemoglobin 28.6 pg (27.0-33.0); Mean Corpuscular Volume 89.2 fL (80.0-98.0); Mean Platelet Volume 10.4 fL (9.4-12.4); Monocytes Absolute Auto 0.6 X10*3/uL (0.1-1.2); Monocytes Percent Auto 6.3 % (2-11); Neutrophils Absolute Auto 5.7 x10*3/uL (2.0-8.3); Neutrophils Percent Auto 64.1 % (45-73); Platelet Count 203 X10*3/uL (160-400); Red Blood Count 3.88 X10*6/uL (4.60-5.80)
[2023-12-14 13:12] LABS: Lactic Acid 1.5 mmol/L (0.5-2.0)
[2023-12-14 13:15] LABS: Anion Gap 10 (12-20); Blood Urea Nitrogen 29 mg/dL (9-16); Calcium 8.5 mg/dL (8.4-10.2); Carbon Dioxide 22 mmol/L (22-29); Chloride 109 mmol/L (96-108); Creatinine Clr Calc Pharmacy 80.9; Estimated Glomerular Filt Rate > 60; Glucose Random 165 mg/dL (60-115); Potassium 5.3 mmol/L (3.3-5.1); Sodium 136 mmol/L (135-145)
[2023-12-14 13:41] LABS: Erythrocyte Sedimentation Rate 19 MM/HR (0-15)
[2023-12-14 15:03] VITALS: BP 139/65; PULSE 78; RESP 16; TEMP 36.6; O2SAT 100
[2023-12-14] MEDS: Piperacillin Sodium/Tazobactam 3.375 GM in 0.9 % Sodium Chloride 50 ML IV (17:06)
--- NOTE | 2023-12-14 18:14 | P.HPHOSP_ITS ---
History of Present Illness Date of Service: 12/14/23 Attending physician on admission: Wild Child Chief Complaint: toe redness/swelling 72-year-old male with insulin-dependent type 2 diabetes, hypertension, gout, hyperlipidemia presents to the ED earlier today for evaluation of a toe infection. He states that for about the last month he has had a sore on the plantar aspect of the distal right 2nd toe that has not healed. He states the sore began growing into the nail and when he attempted to cut his toenail, the scab was removed. Since then over the last few days has become very red, swollen, and painful. Reports the pain radiates up the right lower extremity. He denies any purulent drainage. No fevers or chills. He states he was supposed to be following with [facility]ound [facility] in [place], but his appointments kept getting rescheduled. On arrival, vital signs stable. Renal function and electrolyte levels normal except for a mild hyperkalemia 5.3. CRP 1.50, ESR 19. X-ray of the right foot with findings suspicious for osteomyelitis in the distal 2nd phalanx. In the ED has been given IV Zosyn. Review of Systems 2 Review of Systems: General: No fevers, malaise, unintentional weight loss HEENT: No blurred vision, diplopia. No sore throat, nasal congestion, rhinorrhea, sinus pain, ear pain Cardiovascular: No chest pain, palpitations, or leg edema Respiratory: No shortness of breath, wheezing, cough GI: No abdominal pain, nausea, vomiting, diarrhea, constipation, melena, hematochezia : No dysuria, hematuria, increased urinary frequency, decreased urinary output MSK: No myalgia, back pain Neuro: No headaches, weakness, paresthesias Skin: No rashes. +toe redness/swelling R 2nd toe, +nonhealing wound R 2nd toe PMFSH Medical History (Updated 12/14/23 @ 18:23 by DANNIELLE Whitfield) HLD (hyperlipidemia) Gout Arthritis Diabetes HTN (hypertension) Surgical History History of bowel resection Hx of colonoscopy Social History Alcohol intake: never Smoked in Last 30 Days: No Use of substances other than those prescribed or required for medical reasons: No Advance Directives: No Advance Directives Information Provided: Yes Meds Allergies Allergy/AdvReac Type Severity Reaction Status Date / Time No Known Allergies Allergy Verified 07/01/23 14:03 Home Medications Medication Instructions Recorded Confirmed Last Taken Type albuterol sulfate 90 mcg/actuation inhalation 07/01/23 Unknown History aerosol inhaler (Ventolin HFA) allopurinol 100 mg tablet 200 mg PO DAILY 07/01/23 Unknown History amlodipine 10 mg tablet 10 mg PO DAILY 07/01/23 Unknown History aspirin 81 mg tablet,delayed 81 mg PO QPM 07/01/23 Unknown History release atorvastatin 10 mg tablet 10 mg PO DAILY 07/01/23 Unknown History blood sugar diagnostic (OneTouch #10 ea 07/01/23 Unknown History Ultra Test strips) chlorthalidone 25 mg tablet 25 mg PO DAILY 07/01/23 Unknown History citalopram 20 mg tablet 20 mg PO DAILY 07/01/23 Unknown History fluticasone propionate 220 inhalation 07/01/23 Unknown History mcg/actuation HFA aerosol inhaler (Flovent HFA) gabapentin 600 mg tablet mg PO 07/01/23 Unknown History insulin detemir U-100 100 unit/mL unit subcut 07/01/23 Unknown History (3 mL) subcutaneous pen (Levemir FlexPen) lisinopril 40 mg tablet 40 mg PO DAILY 07/01/23 Unknown History metformin 1,000 mg tablet 1,000 mg PO BID 07/01/23 Unknown History montelukast 10 mg tablet 10 mg PO DAILY 07/01/23 Unknown History Physical Exam 2 Vital Signs and Narrative: Vital Signs: Last Vital Signs Temp 97.9 F 12/14/23 15:03 Pulse 78 12/14/23 15:03 Resp 16 12/14/23 15:03 BP 139/65 12/14/23 15:03 Pulse Ox 100 12/14/23 15:03 O2 Del Method Room Air 12/14/23 15:03 BMI result Body Mass Index 35.0 Constitutional - Awake and Alert, No apparent distress Eyes - PERRLA, EOMI Cardiovascular - S1S2, RRR, No edema, 2+ pedal pulses Respiratory - Normal lung expansion, Normal respiratory effort, No respiratory distress, CTA bilaterally Gastrointestinal - NT / ND; +BS; No rebound or guarding Extremities - no calf tenderness bilaterally, no swelling Skin - Warm/Dry. Shallow, stage 2 dry ulceration of the plantar surface of the R 2nd and 3rd toes. There is erythema and swelling of the R 2nd toe. No purulent drainage. See photo Neurological - Alert & oriented x3 Psychological - Appropriate affect Results Labs 12/14/23 12:57 12/14/23 12:56 Labs: Laboratory Results - last 24 hr 12/14/23 12/14/23 12:56 12:57 MCV 89.2 MCH 28.6 MCHC 32.1 RDW 14.0 Plt Count 203 MPV 10.4 Immature Gran % (Auto) 0.3 Neut % (Auto) 64.1 Lymph % (Auto) 26.3 [place] % (Auto) 6.3 Eos % (Auto) 2.7 Baso % (Auto) 0.3 Lymph # (Auto) 2.4 [place] # (Auto) 0.6 Eos # (Auto) 0.2 Baso # (Auto) 0.0 Abs Immat Gran (auto) 0.03 Absolute Neuts (auto) 5.7 Absolute Nucleated RBC 0.000 Nucleated RBC % (auto) 0.0 ESR 19 H Anion Gap 10 L Estim Creat Clear Calc 80.9 Estimated GFR > 60 Random Glucose 165 H Lactic Acid 1.5 Calcium 8.5 D C-Reactive Protein 1.50 H Imaging Radiologist's Impressions: Impressions Foot X-Ray 12/14/23 13:13 IMPRESSION: Findings suspicious for osteomyelitis in the distal second phalanx. Assessment and Plan (1) Osteomyelitis of toe of right foot: Status: Acute Plan 72-year-old male with insulin-dependent type 2 diabetes, diabetic polyneuropathy, hypertension, gout, hyperlipidemia admitted for management of OM R 2nd toe with cellulitis #Acute cellulitis and osteomyelitis R 2nd toe -xray R foot shows erosive changes consistent with osteomyelitis R 2nd toe -CRP 1.5, ESR 19 -IV vanco and zosyn (initiated 12/13) -Arterial duplex RLE ordered -ID consult -Follow cultures #Stage 2 nonhealing diabetic foot ulcers R 2nd and 3rd toes -as above -major account representative #Acute hyperkalemia -mild, K 5.3 -lokelma x1 -hold lisinopril -follow lytes #HTN -bp reasonably controlled -continue amlodipine, chlorthalidone. 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
[2023-12-14 19:15] VITALS: BP 150/60; PULSE 79; RESP 18; TEMP 36.5; O2SAT 100
[2023-12-14] MEDS: vancomycin/NS 2,000 MG/500 ML PLAST..BAG 250 MG IV (19:42)
[2023-12-14] MEDS: Enoxaparin Sodium 40 MG/0.4 ML SYRINGE SUBCUT (19:43)
[2023-12-14] MEDS: Sodium Zirconium Cyclosilicate 10 GM POWD.PACK PO (19:43)
[2023-12-14 21:06] LABS: Glucose, Whole Blood 180 mg/dL (60-115)
[2023-12-14] MEDS: Insulin Lispro 100 UNIT/ML 3 ML VIAL SUBCUT (21:10)
--- NOTE | 2023-12-14 21:27 | PC.NURSE ---
This repairer typewriter assumed care of this Pt at 1900. Pt A&Ox3, denies any pain. Reports having wound to right foot, 2nd toe. Redness and swelling noted. Pt ambulating independently to BR with steady gait. Pt medicated per DEC. Report given to overflow nurse, Pt will be transported to bed 4 by transporter. Pt aware of plan.
[2023-12-14 21:57] VITALS: BP 131/62; PULSE 67; RESP 18; TEMP 36.3; O2SAT 100
[2023-12-15] MEDS: Piperacillin Sodium/Tazobactam 4.5 GM in 0.9 % Sodium Chloride 100 ML IV ×4 (00:45→17:08)
[2023-12-15 06:24] LABS: MANUAL DIFF FLAG NO
[2023-12-15 06:29] LABS: Basophils Absolute Auto 0.1 X10*3/uL (0.0-0.2); Basophils Percent Auto 0.6 % (0-2); Eosinophils Absolute Auto 0.3 X10*3/uL (0.0-0.4); Eosinophils Percent Auto 3.3 % (0-4); Hemoglobin 11.6 g/dl (14.0-18.0); Imm Gran Abs Auto 0.03 X10*3/uL (0.00-0.03); Imm Gran Pct Auto 0.4 % (0.0-0.4); Lymphocytes Absolute Auto 2.8 X10*3/uL (1.2-4.9); Lymphocytes Percent Auto 34.4 % (20-40); Mean Corpuscular HGB Conc 32.2 g/dl (31.0-36.0); Mean Corpuscular Hemoglobin 28.4 pg (27.0-33.0); Mean Platelet Volume 10.7 fL (9.4-12.4); Monocytes Absolute Auto 0.6 X10*3/uL (0.1-1.2); Monocytes Percent Auto 7.1 % (2-11); Neutrophils Absolute Auto 4.5 x10*3/uL (2.0-8.3); Neutrophils Percent Auto 54.2 % (45-73); Platelet Count 233 X10*3/uL (160-400); Red Blood Count 4.09 X10*6/uL (4.60-5.80); Red Cell Distribution Width 13.6 % (11.0-16.0); White Blood Count 8.3 X10*3/uL (4.8-10.8)
--- NOTE | 2023-12-15 06:46 | PC.NURSE ---
Assumed care of pt at 0315. Pt medicated as per dec. OOB independently to use bathroom. Plan of care ongoing
[2023-12-15 07:00] LABS: Anion Gap 11 (12-20); Blood Urea Nitrogen 18 mg/dL (9-16); Calcium 8.8 mg/dL (8.4-10.2); Carbon Dioxide 24 mmol/L (22-29); Chloride 108 mmol/L (96-108); Creatinine Clr Calc Pharmacy 78.5; Estimated Glomerular Filt Rate > 60; Glucose Random 122 mg/dL (60-115); Potassium 4.8 mmol/L (3.3-5.1); Sodium 138 mmol/L (135-145)
[2023-12-15 07:25] VITALS: BP 121/68; PULSE 59; RESP 17; TEMP 36.6; O2SAT 99
[2023-12-15 07:35] LABS: Estimated Average Glucose 143 mg/dL; Hemoglobin A1c % 6.6 % (<6.0)
[2023-12-15 07:35] LABS: Glucose, Whole Blood 99 mg/dL (60-115)
--- NOTE | 2023-12-15 08:30 | PC.NURSE ---
pt is a/o x 4 no sob/pina noted speaks in full sentences. c/o r foot pain/swelling. pt amb (i) gait steady to bathroom and btb. pt is aware of plan of care. will continue to monitor.
--- NOTE | 2023-12-15 08:30 | PC.NURSE ---
pt is sa/o x 4 no sob/pina noted speaks in full sentences. amb (i) gait steady to bathroom and btb. pt c/o r toe/foot pain/swelling.pt aware of plan of care. will continue to monitor.
[2023-12-15] MEDS: vancomycin HCL 1,000 MG in 0.9 % Sodium Chloride 250 ML 270 MG IV ×2 (08:48→19:39)
[2023-12-15] MEDS: Acetaminophen 325 MG TABLET 650 MG PO (08:57)
--- NOTE | 2023-12-15 09:26 | MHC.CM.PN ---
CM met with Patient in ED Over, at bedside and assisted him with the completion of a HCP(Patient has named his Friend/Jadon @ [phone] as his Agent). Patient lives alone in an apartment and he required no services nor DME SCIENCE ANALYST. Home/self care is the goal and CM has initiated and will follow for dc planning. PCP is Dr. Marleny Beebe.
--- NOTE | 2023-12-15 09:32 | MHC.CM.PN ---
Patient may benefit from a new VNA r/t (R) Toe Osteo; CM will follow.
--- NOTE | 2023-12-15 09:37 | PC.NURSE ---
dr. burks at bedside, pt aware of plan of care.
--- NOTE | 2023-12-15 10:17 | PHA.MEDREC ---
Pharmacy Consult ? Medication Reconciliation Pharmacy has completed the medication reconciliation. Spoke to [facility] med box department ([place]) and confirmed medication list since patient said he takes all that are in the med box. 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 Levemir dose on record is 12 units in the morning and 50 units in the evening but patient said he takes 5 units in the morning and 10 units in the evening.
--- NOTE | 2023-12-15 11:22 | P.PNIM_ITS ---
Subjective Subjective Date of Service: 12/15/23 Interval History: Offers no acute complaints, denies fever, no chills, no nausea, no vomiting, no abdominal pain tolerating diet , stable pain control. Review of Systems All other system reviewed and negative. Physical Exam 2 Vital Signs: Vital Signs: Last Vital Signs Temp 97.9 F 12/15/23 07:25 Pulse 59 12/15/23 07:25 Resp 17 12/15/23 07:25 BP 121/68 12/15/23 07:25 Pulse Ox 99 12/15/23 07:25 O2 Del Method Room Air 12/15/23 07:25 BMI result Body Mass Index 35.0 Const: Other: General patient resting comfortably in no acute distress. Neck is supple no JVD. CVS regular rate rhythm, Respiratory lungs clear to auscultation, no respiratory distress, no wheeze, no rhonchi. Gastrointestinal abdomen soft, nontender, bowel sounds audible, no no guarding , no rigidity. Extremities no clubbing cyanosis or edema. Neuro nonfocal patient moving all 4 extremity speech clear. Skin shallow stage II dry ulcer on the plantar surface of the right 2nd and 3rd toes, erythema and swelling of right 2nd toe slightly better, no drainage noted. Psych appropriate affect Objective Data Active Medications Acetaminophen (Acetaminophen 325 Mg Tablet) 650 mg PO Q6H PRN PRN Reason: Pain, Mild (Pain Scale 1-3) Last Admin: 12/15/23 08:57 Dose: 650 mg Documented By: EVANS Dextrose (Dextrose 50 % 25 Gm/50 Ml Syringe) 25 gm IVPUSH Q15M PRN; Protocol PRN Reason: per Hypoglycemia Standing Ord. Enoxaparin Sodium (Enoxaparin Sodium 40 Mg/0.4 Ml Syringe) 40 mg SUBCUT Q24H [facility] Last Admin: 12/14/23 19:43 Dose: 40 mg Documented By: SERRANX Glucose (Glucose Gel 15 Gm Gel..Gram.) 15 gm PO Q15M PRN; Protocol PRN Reason: per Hypoglycemia Standing Ord. Piperacillin Sod/Tazobactam (Sod 4.5 gm/ Sodium Chloride) 100 mls @ 200 mls/hr IV Q6H [facility] Last Infusion: 12/15/23 05:10 Dose: Infused Documented By: MONTEIR Vancomycin HCl 1,000 mg/ (Sodium Chloride) 270 mls @ 270 mls/hr IV Q12H [facility] Last Infusion: 12/15/23 09:50 Dose: Infused Documented By: EVANS Insulin Human Lispro (Insulin Lispro 100 Unit/Ml 3 Ml Vial) 0 unit SUBCUT QIDACHS [facility]; Protocol Last Admin: 12/15/23 08:48 Dose: Not Given Documented By: EVANS Non-Admin Reason: No Insulin Coverage Ondansetron HCl (Ondansetron Hcl 4 Mg/2 Ml Vial) 4 mg IVPUSH Q8H PRN PRN Reason: Nausea and Vomiting Pharmacy Consult (Consult Rx Vancomycin Dosing) 1 each MISCELLANE DAILY PRN PRN Reason: Consult order Senna (Sennosides 8.6 Mg Tablet) 17.2 mg PO BEDTIME PRN PRN Reason: Constipation Sodium Chloride (0.9 % Sodium Chloride Flush 3 Ml Syringe) 3 ml IVFLUSH QSHIFT [facility] Last Admin: 12/15/23 09:27 Dose: Not Given Documented By: EVANS Non-Admin Reason: given, but unable to chart Labs 12/15/23 05:57 12/15/23 05:57 Labs: Laboratory Results - last 24 hr 12/14/23 12/14/23 12/14/23 12:56 12:57 21:00 MCV 89.2 MCH 28.6 MCHC 32.1 RDW 14.0 Plt Count 203 MPV 10.4 Immature Gran % (Auto) 0.3 Neut % (Auto) 64.1 Lymph % (Auto) 26.3 Dillon % (Auto) 6.3 Eos % (Auto) 2.7 Baso % (Auto) 0.3 Lymph # (Auto) 2.4 Dillon # (Auto) 0.6 Eos # (Auto) 0.2 Baso # (Auto) 0.0 Abs Immat Gran (auto) 0.03 Absolute Neuts (auto) 5.7 Absolute Nucleated RBC 0.000 Nucleated RBC % (auto) 0.0 ESR 19 H Anion Gap 10 L Estim Creat Clear Calc 80.9 Estimated GFR > 60 POC Glucose 180 H Random Glucose 165 H Estimat Average Glucose 143 Hemoglobin A1c % 6.6 H Lactic Acid 1.5 Calcium 8.5 D C-Reactive Protein 1.50 H 12/15/23 12/15/23 05:57 07:32 MCV 88.0 MCH 28.4 MCHC 32.2 RDW 13.6 Plt Count 233 MPV 10.7 Immature Gran % (Auto) 0.4 Neut % (Auto) 54.2 Lymph % (Auto) 34.4 Dillon % (Auto) 7.1 Eos % (Auto) 3.3 Baso % (Auto) 0.6 Lymph # (Auto) 2.8 Dillon # (Auto) 0.6 Eos # (Auto) 0.3 Baso # (Auto) 0.1 Abs Immat Gran (auto) 0.03 Absolute Neuts (auto) 4.5 Absolute Nucleated RBC 0.000 Nucleated RBC % (auto) 0.0 ESR Anion Gap 11 L Estim Creat Clear Calc 78.5 Estimated GFR > 60 POC Glucose 99 Random Glucose 122 H Estimat Average Glucose Hemoglobin A1c % Lactic Acid Calcium 8.8 C-Reactive Protein Assessment and Plan (1) Osteomyelitis of toe of right foot: Status: Acute Plan 72-year-old male with insulin-dependent type 2 diabetes, diabetic polyneuropathy, hypertension, gout, hyperlipidemia admitted for management of OM R 2nd toe with cellulitis #Acute cellulitis and osteomyelitis R 2nd toe -no fevers, no chills, stable looking right 2nd toe no drainage,xray R foot shows erosive changes consistent with osteomyelitis R 2nd toe -CRP 1.5, ESR 19 -on IV vanco and zosyn (initiated 12/13) -Arterial duplex RLE shows mild atherosclerotic disease and mild narrowing distal superficial femoral artery and collateral vessel -follow ID consult -Follow blood cultures #Stage 2 nonhealing diabetic foot ulcers R 2nd and 3rd toes -as above -scheduling representative #Acute hyperkalemia -mild, K 5.3 on admission improved after 1 dose of Lokelma, continue to hold lisinopril #HTN -bp reasonably controlled, all blood pressure medications including amlodipine, chlorthalidone and lisinopril on hold will follow BP closely #Insulin dependent type 2 diabetes without hyperglycemia -hgb a1c 6.6, blood sugars stable, continue diabetic diet, basal insulin and insulin sliding scale -hold metformin #Diabetic polyneuropathy -gabapentin #Mild intermittent asthma- no exacebration -continue singulair, albuterol prn dvt prophyalxis- lovenox full code pt requires continued inpatient stay for mangement of acute cellulitis and osteomyelitis requiring ov abx, expert consultations, and probable terminal clerk abx pending blood cultures results. Quality Stroke Does the patient have a stroke diagnosis?: No VTE Prior VTE?: No VTE Risk Level:: Medical - moderate - high VTE Device Contraindication: Treatment Not Indicated VTE Drug Contraindication: N/A - Med Ordered
[2023-12-15 11:38] LABS: Glucose, Whole Blood 120 mg/dL (60-115)
[2023-12-15] MEDS: Escitalopram Oxalate 10 MG TABLET PO (12:28)
[2023-12-15 14:28] VITALS: BP 142/67; PULSE 63; RESP 17; TEMP 36.1; O2SAT 99
[2023-12-15 16:00] VITALS: BP 108/56; PULSE 67; RESP 16; TEMP 36.9; O2SAT 96
--- NOTE | 2023-12-15 16:05 | W.PM.IDCN ---
History of Present Illness Data of Consult Service Date: 12/15/23 Requesting physician: Patricia Cartwright Primary Care Provider: Marleny Beebe MD [facility] Reason for consult: right second toe redness He reports right second toe redness and swelling going up leg after picking area on toe ulcerated few weeks. He has not had any fever or chills. He doesnt recall injury PMFSH Past Medical History Medical History HLD (hyperlipidemia) Gout Arthritis Diabetes HTN (hypertension) Family History Family history: reviewed and not pertinent Surgical History Surgical History History of bowel resection Hx of colonoscopy Social History Social History Alcohol intake: never Patient Tobacco Use Status: Former Tobacco user service: No Meds Allergies Allergy/AdvReac Type Severity Reaction Status Date / Time No Known Allergies Allergy Verified 07/01/23 14:03 Active Medications: Current Medications Acetaminophen (Acetaminophen 325 Mg Tablet) 650 mg PO Q6H PRN PRN Reason: Pain, Mild (Pain Scale 1-3) Last Admin: 12/15/23 08:57 Dose: 650 mg Albuterol Sulfate (Albuterol Sulfate 90 Mcg 8 Gm Inhaler) 2 puff INHALE Q4H PRN PRN Reason: Shortness Of Breath Or Wheezing Allopurinol (Allopurinol 100 Mg Tablet) 100 mg PO BID [facility] Atorvastatin Calcium (Atorvastatin Calcium 10 Mg Tablet) 10 mg PO BEDTIME [facility] Dextrose (Dextrose 50 % 25 Gm/50 Ml Syringe) 25 gm IVPUSH Q15M PRN; Protocol PRN Reason: per Hypoglycemia Standing Ord. Enoxaparin Sodium (Enoxaparin Sodium 40 Mg/0.4 Ml Syringe) 40 mg SUBCUT Q24H [facility] Last Admin: 12/14/23 19:43 Dose: 40 mg Escitalopram Oxalate (Escitalopram Oxalate 10 Mg Tablet) 10 mg PO DAILY [facility] Last Admin: 12/15/23 12:28 Dose: 10 mg Gabapentin (Gabapentin 600 Mg Tablet) 600 mg PO BID [facility] Glucose (Glucose Gel 15 Gm Gel..Gram.) 15 gm PO Q15M PRN; Protocol PRN Reason: per Hypoglycemia Standing Ord. Piperacillin Sod/Tazobactam (Sod 4.5 gm/ Sodium Chloride) 100 mls @ 200 mls/hr IV Q6H [facility] Last Infusion: 12/15/23 12:53 Dose: Infused Vancomycin HCl 1,000 mg/ (Sodium Chloride) 270 mls @ 270 mls/hr IV Q12H [facility] Last Infusion: 12/15/23 09:50 Dose: Infused Insulin Glargine (Insulin Glargine,Hum.Rec.Anlog 100 Unit/Ml 10 Ml Vial) 7 unit SUBCUT BEDTIME [facility] Insulin Human Lispro (Insulin Lispro 100 Unit/Ml 3 Ml Vial) 0 unit SUBCUT QIDACHS [facility]; Protocol Last Admin: 12/15/23 11:51 Dose: Not Given Montelukast Sodium (Montelukast Sodium 10 Mg Tablet) 10 mg PO BEDTIME [facility] Ondansetron HCl (Ondansetron Hcl 4 Mg/2 Ml Vial) 4 mg IVPUSH Q8H PRN PRN Reason: Nausea and Vomiting Pharmacy Consult (Consult Rx Vancomycin Dosing) 1 each MISCELLANE DAILY PRN PRN Reason: Consult order Senna (Sennosides 8.6 Mg Tablet) 17.2 mg PO BEDTIME PRN PRN Reason: Constipation Sodium Chloride (0.9 % Sodium Chloride Flush 3 Ml Syringe) 3 ml IVFLUSH QSHIFT [facility] Last Admin: 12/15/23 09:27 Dose: Not Given Home Medications Medication Instructions Recorded Confirmed Last Taken Type albuterol sulfate 90 mcg/actuation 2 puff inhalation Q4-6H PRN 07/01/23 12/14/23 Unknown History aerosol inhaler (Ventolin HFA) Shortness Of Breath Or Wheezing allopurinol 100 mg tablet 100 mg PO BID 07/01/23 12/15/23 12/14/23 History amlodipine 10 mg tablet 10 mg PO QPM 07/01/23 12/15/23 12/14/23 History aspirin 81 mg tablet,delayed 81 mg PO QPM 07/01/23 12/15/23 12/14/23 History release atorvastatin 10 mg tablet 10 mg PO QPM 07/01/23 12/15/23 12/14/23 History blood sugar diagnostic (OneTouch #10 ea 07/01/23 Unknown History Ultra Test strips) chlorthalidone 25 mg tablet 25 mg PO QAM 07/01/23 12/15/2312/13/24 History citalopram 20 mg tablet 20 mg PO QAM 07/01/23 12/15/23 12/14/23 History fluticasone propionate 220 1 puff inhalation BID PRN 07/01/23 12/14/23 Unknown History mcg/actuation HFA aerosol inhaler Shortness Of Breath Or Wheezing (Flovent HFA) gabapentin 600 mg tablet 600 mg PO BID 07/01/23 12/15/23 12/14/23 History insulin detemir U-100 100 unit/mL 5 unit subcut QAM 07/01/23 12/14/23 Unknown History (3 mL) subcutaneous pen (Levemir FlexPen) lisinopril 40 mg tablet 40 mg PO QPM 07/01/23 12/15/23 12/14/23 History metformin 1,000 mg tablet 1,000 mg PO BID 07/01/23 12/15/23 12/14/23 History montelukast 10 mg tablet 10 mg PO QPM 07/01/23 12/15/23 12/14/23 History acetaminophen 500 mg tablet 500 mg PO Q6H PRN mild pain 12/14/23 12/14/23 Unknown History fluticasone propionate 50 1 spray intranasal DAILY PRN 12/14/23 12/14/23 Unknown History mcg/actuation nasal Allergy Symptoms spray,suspension insulin detemir U-100 100 unit/mL 10 unit subcut BEDTIME 12/15/23 12/15/23 12/14/23 History (3 mL) subcutaneous pen (Levemir FlexPen) Physical Exam Vital Signs: Vital Signs: Last Vital Signs Temp 98.4 F 12/15/23 16:00 Pulse 67 12/15/23 16:00 Resp 16 12/15/23 16:00 BP 108/56 L 12/15/23 16:00 Pulse Ox 96 12/15/23 16:00 O2 Del Method Room Air 12/15/23 16:00 BMI result Body Mass Index 35.0 Const: General: cooperative HEENT: Head: Yes normal to inspection Face and sinus: Yes normal facial exam Mouth: Normal oral and palatal mucosa present Teeth and gingiva: dentition normal Eyes: General: appearance normal, both eyes and all related structures Pupils: Equal, round and reactive pupils present Resp: Effort & Inspection: normal respiratory effort Cardio: Rate: regular rate Rhythm: regular rhythm GI: Palpation (GI): Soft to palpation and nontender : General: Yes no CVA tenderness Back/Spine/Pelvis: Back: no CVA tenderness Skin: General skin exam: no rashes or lesions noted Neuro: General: moves all extremities Cranial nerves: Yes Equal, round and reactive pupils present Extrem: Other: plantar ulcer .5cm right second toe neuropathy feet Psych: Appearance: grossly normal Results Labs 12/15/23 05:57 12/15/23 05:57 Labs: Short CBC 12/15/23 Range/Units 05:57 WBC 8.3 (4.8-10.8) X10*3/uL Hgb 11.6 L (14.0-18.0) g/dl Hct 36.0 L (42.0-52.0) % Plt Count 233 (160-400) X10*3/uL BMP 12/15/23 05:57 Sodium 138 Potassium 4.8 Chloride 108 Carbon Dioxide 24 BUN 18 H Creatinine 1.01 Calcium 8.8 Microbiology Microbiology Results: Microbiology 12/14/23 12:56 Blood - Venous Blood Culture - Preliminary No growth after 24 hours. Assessment and Plan (1) Osteomyelitis of toe of right foot: Status: Acute There appears to be OM right second toe. There could be staph or staph and no MRSA so far. 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
[2023-12-15 16:58] LABS: Glucose, Whole Blood 116 mg/dL (60-115)
[2023-12-15] MEDS: Enoxaparin Sodium 40 MG/0.4 ML SYRINGE SUBCUT (17:08)
[2023-12-15] MEDS: 0.9 % Sodium Chloride Flush 3 ML SYRINGE IVFLUSH (17:09)
[2023-12-15 19:53] VITALS: BP 124/60; PULSE 76; RESP 16; TEMP 36.7; O2SAT 97
[2023-12-15 20:51] LABS: Glucose, Whole Blood 176 mg/dL (60-115)
[2023-12-15] MEDS: Gabapentin 600 MG TABLET PO (20:59)
[2023-12-15] MEDS: Atorvastatin Calcium 10 MG TABLET PO (20:59)
[2023-12-15] MEDS: allopurinoL 100 MG TABLET PO (20:59)
[2023-12-15] MEDS: Insulin Glargine,Hum.rec.anlog 100 UNIT/ML 10 ML VIAL 7 UNIT SUBCUT (20:59)
[2023-12-15] MEDS: Montelukast Sodium 10 MG TABLET PO (21:08)
[2023-12-15] MEDS: Insulin Lispro 100 UNIT/ML 3 ML VIAL SUBCUT (21:09)
[2023-12-15 23:36] VITALS: BP 129/59; PULSE 64; RESP 16; TEMP 36.8; O2SAT 98
[2023-12-16] MEDS: Piperacillin Sodium/Tazobactam 4.5 GM in 0.9 % Sodium Chloride 100 ML IV ×2 (00:30→05:39)
[2023-12-16] MEDS: 0.9 % Sodium Chloride Flush 3 ML SYRINGE IVFLUSH ×3 (01:12→16:59)
--- NOTE | 2023-12-16 02:37 | PC.NURSE ---
Patient is alert and oriented x3, resting in a hospital bed, VSS, respirations even and unlabored. Patient denies any pain at rest, tolerating IV abt w/o adverse reactions. Plan of care ongoing.
[2023-12-16 05:29] VITALS: BP 126/62; PULSE 64; RESP 16; TEMP 36.8; O2SAT 98
[2023-12-16 05:48] LABS: Creatinine Clr Calc Pharmacy 78.5; Estimated Glomerular Filt Rate > 60
--- NOTE | 2023-12-16 06:06 | HE.PHANOTE ---
ABDIAS patients level came back this morning at 18. patients indication is bone and joint. patient is currently within AUC. However will decrease dose to 750 mg Q12H. next level 12/16 @1700. Predicted AUC 431
[2023-12-16 07:12] LABS: Glucose, Whole Blood 100 mg/dL (60-115)
[2023-12-16] MEDS: Gabapentin 600 MG TABLET PO ×2 (08:16→21:23)
[2023-12-16] MEDS: vancomycin HCL 750 MG in 0.9 % Sodium Chloride 250 ML 265 MG IV ×2 (08:17→19:43)
[2023-12-16] MEDS: allopurinoL 100 MG TABLET PO ×2 (08:29→21:24)
[2023-12-16] MEDS: Escitalopram Oxalate 10 MG TABLET PO (08:29)
[2023-12-16 08:52] VITALS: BP 154/65; PULSE 62; RESP 18; TEMP 36.4; O2SAT 98
[2023-12-16] MEDS: amLODIPine Besylate 5 MG TABLET PO (10:19)
[2023-12-16 11:48] LABS: Glucose, Whole Blood 109 mg/dL (60-115)
--- NOTE | 2023-12-16 13:23 | PC.NURSE ---
Iv antibiotics and po meds given as ordered and documented. Morning and noon POCs within parameters, no insulin coverage given per protocol. Pt resting quietly at this time. Seen by Dr. Cartwright this morning.
--- NOTE | 2023-12-16 13:44 | HO.PM.IMPN ---
Subjective Subjective Date of Service: 12/16/23 Interval History: Offers no acute complaints, denies fever, no chills, no nausea, no vomiting, no abdominal pain or diarrhea, no other acute events overnight. Review of Systems All other system reviewed and negative Physical Exam Vital Signs: Vital Signs: Last Vital Signs Temp 97.6 F 12/16/23 08:52 Pulse 62 12/16/23 08:52 Resp 18 12/16/23 08:52 BP 154/65 H 12/16/23 08:52 Pulse Ox 98 12/16/23 08:52 O2 Del Method Room Air 12/16/23 08:52 BMI result Body Mass Index 35.0 Const: Other: General awake alert x3, resting comfortably in no acute distress. Neck is supple no JVD. CVS regular rate rhythm, Respiratory lungs clear to auscultation, no respiratory distress, no wheeze, no rhonchi. Gastrointestinal abdomen soft, nontender, bowel sounds audible, no no guarding , no rigidity. Extremities no clubbing cyanosis or edema. Neuro nonfocal patient moving all 4 extremity speech clear. Skin shallow stage II dry ulcer on the plantar surface of the right 2nd and 3rd toes, erythema and swelling of right 2nd toe stable, no drainage noted. Psych appropriate affect Objective Data Active Medications Acetaminophen (Acetaminophen 325 Mg Tablet) 650 mg PO Q6H PRN PRN Reason: Pain, Mild (Pain Scale 1-3) Last Admin: 12/15/23 08:57 Dose: 650 mg Documented By: EVANS Albuterol Sulfate (Albuterol Sulfate 90 Mcg 8 Gm Inhaler) 2 puff INHALE Q4H PRN PRN Reason: Shortness Of Breath Or Wheezing Allopurinol (Allopurinol 100 Mg Tablet) 100 mg PO BID [facility] Last Admin: 12/16/23 08:29 Dose: 100 mg Documented By: NORMA Amlodipine Besylate (Amlodipine Besylate 5 Mg Tablet) 5 mg PO DAILY [facility]; Protocol Last Admin: 12/16/23 10:19 Dose: 5 mg Documented By: NORMA Atorvastatin Calcium (Atorvastatin Calcium 10 Mg Tablet) 10 mg PO BEDTIME [facility] Last Admin: 12/15/23 20:59 Dose: 10 mg Documented By: JOSE MANUEL Dextrose (Dextrose 50 % 25 Gm/50 Ml Syringe) 25 gm IVPUSH Q15M PRN; Protocol PRN Reason: per Hypoglycemia Standing Ord. Enoxaparin Sodium (Enoxaparin Sodium 40 Mg/0.4 Ml Syringe) 40 mg SUBCUT Q24H [facility] Last Admin: 12/15/23 17:08 Dose: 40 mg Documented By: ODIN Escitalopram Oxalate (Escitalopram Oxalate 10 Mg Tablet) 10 mg PO DAILY [facility] Last Admin: 12/16/23 08:29 Dose: 10 mg Documented By: NORMA Gabapentin (Gabapentin 600 Mg Tablet) 600 mg PO BID [facility] Last Admin: 12/16/23 08:16 Dose: 600 mg Documented By: NORMA Glucose (Glucose Gel 15 Gm Gel..Gram.) 15 gm PO Q15M PRN; Protocol PRN Reason: per Hypoglycemia Standing Ord. Vancomycin HCl 750 mg/ Sodium (Chloride) 265 mls @ 265 mls/hr IV Q12H [facility] Last Infusion: 12/16/23 10:06 Dose: Infused Documented By: NORMA Insulin Glargine (Insulin Glargine,Hum.Rec.Anlog 100 Unit/Ml 10 Ml Vial) 7 unit SUBCUT BEDTIME [facility] Last Admin: 12/15/23 20:59 Dose: 7 unit Documented By: JOSE MANUEL Insulin Human Lispro (Insulin Lispro 100 Unit/Ml 3 Ml Vial) 0 unit SUBCUT QIDACHS [facility]; Protocol Last Admin: 12/16/23 11:56 Dose: Not Given Documented By: NORMA Non-Admin Reason: No Insulin Coverage Montelukast Sodium (Montelukast Sodium 10 Mg Tablet) 10 mg PO BEDTIME [facility] Last Admin: 12/15/23 21:08 Dose: 10 mg Documented By: JOSE MANUEL Ondansetron HCl (Ondansetron Hcl 4 Mg/2 Ml Vial) 4 mg IVPUSH Q8H PRN PRN Reason: Nausea and Vomiting Pharmacy Consult (Consult Rx Vancomycin Dosing) 1 each MISCELLANE DAILY PRN PRN Reason: Consult order Senna (Sennosides 8.6 Mg Tablet) 17.2 mg PO BEDTIME PRN PRN Reason: Constipation Sodium Chloride (0.9 % Sodium Chloride Flush 3 Ml Syringe) 3 ml IVFLUSH QSHIFT [facility] Last Admin: 12/16/23 08:27 Dose: 3 ml Documented By: NORMA Labs 12/15/23 05:57 12/16/23 05:02 Labs: Laboratory Results - last 24 hr 12/15/23 12/15/23 12/16/23 16:54 20:48 05:02 Estim Creat Clear Calc 78.5 Estimated GFR > 60 POC Glucose 116 H 176 H Random Vancomycin 18.0 12/16/23 12/16/23 07:09 11:45 Estim Creat Clear Calc Estimated GFR POC Glucose 100 109 Random Vancomycin Microbiology Microbiology Results: Microbiology 12/15/23 05:57 Blood Culture - Preliminary Blood - Venous No growth after 24 hours. 12/14/23 12:56 Blood Culture - Preliminary Blood - Venous No growth after 24 hours. Assessment and Plan (1) Osteomyelitis of toe of right foot: Status: Acute Plan 72-year-old male with insulin-dependent type 2 diabetes, diabetic polyneuropathy, hypertension, gout, hyperlipidemia admitted for management of OM R 2nd toe with cellulitis #Acute cellulitis and osteomyelitis R 2nd toe -no fevers, no chills, stable looking right 2nd toe no drainage,xray R foot shows erosive changes consistent with osteomyelitis R 2nd toe, -CRP 1.5, ESR 19 -on IV vanco and zosyn (initiated 12/13), will DC IV Zosyn -Arterial duplex RLE shows mild atherosclerotic disease and mild narrowing distal superficial femoral artery and collateral vessel -ID recommends 6 weeks of IV vanco or ertapenem, will follow final cultures -blood cultures x2 -24 hours/picc line #Stage 2 nonhealing diabetic foot ulcers R 2nd and 3rd toes -as above -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 #HTN -bp reasonably controlled, on amlodipine 5 mg daily chlorthalidone and lisinopril on hold will follow BP closely #Insulin dependent type 2 diabetes without hyperglycemia -hgb a1c 6.6, blood sugars stable, continue diabetic diet, on Levemir pen 10 units at bedtime, since non formulary placed on Lantus 7 units, continue insulin sliding scale -hold metformin #Diabetic polyneuropathy -gabapentin #Mild intermittent asthma- no exacebration -continue singulair, albuterol prn dvt prophyalxis- lovenox full code pt requires continued inpatient stay for mangement of acute cellulitis and osteomyelitis requiring iv abx, expert consultations, and probable [place] [facility] abx pending blood cultures results. Quality Stroke Does the patient have a stroke diagnosis?: No VTE Prior VTE?: No VTE Risk Level:: Medical - moderate - high VTE Device Contraindication: Treatment Not Indicated VTE Drug Contraindication: N/A - Med Ordered
[2023-12-16 16:07] LABS: Glucose, Whole Blood 196 mg/dL (60-115)
[2023-12-16] MEDS: Enoxaparin Sodium 40 MG/0.4 ML SYRINGE SUBCUT (17:05)
[2023-12-16] MEDS: Insulin Lispro 100 UNIT/ML 3 ML VIAL SUBCUT (17:05)
--- NOTE | 2023-12-16 18:46 | PC.NURSE ---
Pt to have PICC placed tomorrow morning, pt aware of plan.
--- NOTE | 2023-12-16 19:51 | PC.NURSE ---
Pt ambulating around room. Pt ca&ox4, no signs of distress. Pt on the phone with family. Pt medicated per mar. Plan of care ongoing.
[2023-12-16 19:58] VITALS: BP 121/70; PULSE 61; RESP 16; TEMP 37.2; O2SAT 94
[2023-12-16 20:01] LABS: Glucose, Whole Blood 133 mg/dL (60-115)
--- NOTE | 2023-12-16 20:03 | PC.NURSE ---
Pts poc was 133. no insulin coverage required with lispro. Plan of care ongoing.
[2023-12-16] MEDS: Atorvastatin Calcium 10 MG TABLET PO (21:23)
[2023-12-16] MEDS: Montelukast Sodium 10 MG TABLET PO (21:23)
[2023-12-16] MEDS: Insulin Glargine,Hum.rec.anlog 100 UNIT/ML 10 ML VIAL 7 UNIT SUBCUT (21:24)
--- NOTE | 2023-12-16 21:29 | PC.NURSE ---
Pt sitting up in bed. Pt medicated per dec. Pt ambulated to the restroom with a steady gait. Plan of care ongoing.
--- NOTE | 2023-12-16 23:51 | PC.NURSE ---
Pt ambulated to the restroom with a steady gait. Plan of care ongoing.
--- NOTE | 2023-12-17 | PC.NURSE ---
Pt ambulated back to room. plan of care ongoing.
[2023-12-17] MEDS: 0.9 % Sodium Chloride Flush 3 ML SYRINGE IVFLUSH ×2 (00:55→09:08)
[2023-12-17 07:09] LABS: Creatinine Clr Calc Pharmacy 92.2; Estimated Glomerular Filt Rate > 60
[2023-12-17 07:29] LABS: Glucose, Whole Blood 104 mg/dL (60-115)
[2023-12-17] MEDS: allopurinoL 100 MG TABLET PO (08:59)
[2023-12-17] MEDS: Gabapentin 600 MG TABLET PO (08:59)
[2023-12-17] MEDS: Escitalopram Oxalate 10 MG TABLET PO (08:59)
[2023-12-17] MEDS: amLODIPine Besylate 5 MG TABLET PO (09:00)
[2023-12-17 09:11] VITALS: BP 146/65; PULSE 66; RESP 18; TEMP 36.6; O2SAT 99
--- NOTE | 2023-12-17 11:31 | HO.MIDLINE_ITS ---
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 Using ultrasound guidance, RIGHT CEPHALIC vein access was obtained ON FIRST ATTEMPT. 4FR SINGLE LUMEN PASV POWERPICC LINE SOLO was positioned. The procedure was performed in RM 272. Ultrasound was used to document vein patency and for needle entry. A formal ultrasound picture was recorded. Vascular Supply Chain Buyer has released the line for use and it is currently dressed with a StatLock, Tegaderm, and CHG disc. Verification has been performed for blood return and line patency. Arm Circumference: 30CM Equipment: BARD POWERPICC SOLO CATHETER Catheter Type: 4FR SINGLE LUMEN POWERPICC SOLO PASV Lot #: [id number]
--- NOTE | 2023-12-17 11:40 | P.PICC_ITS ---
PICC Line Insertion PICC INSERTION Diagnosis: OSTEOMYELITIS RIGHT GREAT TOE Indication: RIVET PASSER ANTIBX Pertinent Labs: REVIEWED Technique: Following informed consent including risks, benefits and alternatives and using sterile technique including cap and mask, sterile gown, glove and drape, the RIGHT arm was prepped and draped in the usual sterile fashion of full barrier technique with [facility]. Following completion of [place] Protocol the skin and soft tissues were anesthetized with 1% Lidocaine plain. Using ultrasound guidance, RIGHT CEPHALIC vein access was obtained FIRST ATTEMPT Over an 0.018 wire through peel-away sheath, a 4FR SINGLE LUMEN PASV POWERPICC LINE SOLO line was positioned. Catheter length is 42CM internal length, 0CM external length, for a total trimmed length of 42CM. The procedure was performed in 272. Tip verification was performed by Tenzin Ramos with Mandi 3CG. Tip located in SVC. Ultrasound was used to document vein patency and for needle entry. A formal ultrasound picture and cardiac rhythm strip was recorded. Vascular Net Developer Programmer has released the line for use and it is currently dressed with a S tatLock, Tegaderm, and G disc. Verification has been performed for blood return and line patency. Arm Circumference:30CM Equipment: [employer] POWERPICC SOLO CATHETER Catheter Type: 4FR SINGLE LUMEN PASV POWERPICC LINE SOLO line Lot #: [id number]
[2023-12-17 12:21] LABS: Glucose, Whole Blood 140 mg/dL (60-115)
[2023-12-17] MEDS: vancomycin HCL 750 MG in 0.9 % Sodium Chloride 250 ML 265 MG IV (13:00)
--- NOTE | 2023-12-17 13:44 | PC.NURSE ---
pt left for IRshortly after vanco started, vanco disconnected for precedure but emptied on the floor while pt was in IR, upon return a new vanco was started and pharmacy informed and time changed in the MAR
[2023-12-17] MEDS: Ertapenem Sodium 1 GM in 0.9 % Sodium Chloride 50 ML IV (14:44)
--- NOTE | 2023-12-17 15:21 | MHC.CM.PN ---
Pt is medically cleared for D/C home with [facility] infusion for 6 weeks of IV ertapenem, pt [facility] have nursing from [facility] to assist. Pts friend to transport him home.
--- NOTE | 2023-12-17 15:31 | PM.DS ---
DS: Providers Provider Date of Service: 12/17/23 Date of admission: 12/14/23 18:11 Primary care physician: Marleny Beebe MD Consults: 12/14/23 18:11 Consult to Infectious Diseases Routine Consulting Provider: [facility] Infectious Disease Reason for consultation: osteomyelitis R 2nd toe 12/16/23 13:48 Consult to Wound Care Routine Reason for consultation: rt 2/3 toe ulcers/osteo 2nd toe 12/17/23 13:57 Consult to Infectious Diseases Routine Consulting Provider: RENNY MEDINA Reason for consultation: osteomyelitis Has provider been notified: Yes DS: Diagnosis Discharge Diagnosis (1) Osteomyelitis of toe of right foot: Status: Acute DS: Summary Hospital Course Hospital Course: History of presenting illness; Date of Service: 12/14/23 Attending physician on admission: [place] [facility] Chief Complaint: toe redness/swelling 72-year-old male with insulin-dependent type 2 diabetes, hypertension, gout, hyperlipidemia presents to the ED earlier today for evaluation of a toe infection. He states that for about the last month he has had a sore on the plantar aspect of the distal right 2nd toe that has not healed. He states the sore began growing into the nail and when he attempted to cut his toenail, the scab was removed. Since then over the last few days has become very red, swollen, and painful. Reports the pain radiates up the right lower extremity. He denies any purulent drainage. No fevers or chills. He states he was supposed to be following with [facility]ound [facility] in [place], but his appointments kept getting rescheduled. On arrival, vital signs stable. Renal function and electrolyte levels normal except for a mild hyperkalemia 5.3. CRP 1.50, ESR 19. X-ray of the right foot with findings suspicious for osteomyelitis in the distal 2nd phalanx. In the ED has been given IV Zosyn. Hospital course: 72-year-old male with insulin-dependent type 2 diabetes, diabetic polyneuropathy, hypertension, gout, hyperlipidemia admitted for management of OM R 2nd toe with cellulitis #Acute cellulitis and osteomyelitis R 2nd toe x-ray of foot showed erosive changes right 2nd toe consistent with osteomyelitis noted to have low inflammatory markers CRP 1.5, ESR 19 initially treated with IV vancomycin and Zosyn, blood cultures x2 negative, patient evaluated by Infectious Disease she recommend 6 weeks of IV ertapenem, PICC line placed patient is being discharged home with home infusion services, end date of antibiotic January 25, arterial duplex right lower extremity showed mild atherosclerotic disease and mild narrowing distal superficial femoral artery and collateral vessels. #Stage 2 nonhealing diabetic foot ulcers R 2nd and 3rd toes stable. #Acute hyperkalemia -mild, K 5.3 on admission improved after 1 dose of Lokelma was likely due to COURTNEY inhibitor. #HTN noted to have soft blood pressures therefore discontinued chlorthalidone and lisinopril recommend to continue amlodipine 10 mg daily and follow blood pressure closely. #Insulin dependent type 2 diabetes without hyperglycemia -hgb a1c 6.6, blood sugars stable, continue diabetic diet, resume Levemir pen 10 units at bedtime, and metformin #Diabetic polyneuropathy continue gabapentin. #Mild intermittent asthma- no exacebration noted recommend to continue singulair, albuterol prn Time Attestation Discharge Coordination Time (in mins): 35 minutes Quality: Safe Use of Opioids Does Pt have an Active Cancer Diagnosis on the Problem List?: No Quality: Stroke Does the patient have a stroke diagnosis?: No Physical Exam Vital Signs: Vital Signs: Last Vital Signs Temp 98 F 12/17/23 09:11 Pulse 66 12/17/23 09:11 Resp 18 12/17/23 09:11 BP 146/65 H 12/17/23 09:11 Pulse Ox 99 12/17/23 09:11 O2 Del Method Room Air 12/16/23 19:58 BMI result Body Mass Index 35.0 Const: Other: General awake alert x3, resting comfortably in no acute distress. Neck is supple no JVD. CVS regular rate rhythm, Respiratory lungs clear to auscultation, no respiratory distress, no wheeze, no rhonchi. Gastrointestinal abdomen soft, non tender, bowel sounds audible, no guarding , no rigidity. Extremities no edema. Neuro non focal Skin shallow stage II dry ulcer on the plantar surface of the right 2nd and 3rd toes, swelling of right 2nd toe stable, erythema resolved, no drainage noted. Psych appropriate affect DS: Data Data Completed and Pending Labs on day of discharge: Laboratory Results - last 24 hr 12/16/23 12/16/23 12/17/23 16:04 19:57 06:10 Creatinine 0.86 Estim Creat Clear Calc 92.2 Estimated GFR > 60 POC Glucose 196 H 133 H 12/17/23 12/17/23 07:26 12:18 Creatinine Estim Creat Clear Calc Estimated GFR POC Glucose 104 140 H Preliminary micro results at discharge 12/15/23 05:57 Blood Culture - Preliminary Blood - Venous No growth after 48 hours. 12/14/23 12:56 Blood Culture - Preliminary Blood - Venous No growth after 48 hours. Discharge Plan Discharge Anticipated Discharge Date/Time: 12/17/23 13:59 Patient Disposition: Home Health Service Discharge Diagnosis: Acute cellulitis and osteomyelitis right 2nd toe [facility]errals: [facility] [Other] - 1 Week Marleny Beebe MD [Primary Care Provider] - 1 Week Discharge Medications: Continued acetaminophen 500 mg tablet 500 mg PO Q6H PRN (Reason: mild pain) fluticasone propionate 50 mcg/actuation spray,suspension 1 spray intranasal DAILY PRN (Reason: Allergy Symptoms) Levemir FlexPen 100 unit/mL (3 mL) Insulin Pen 10 unit SUBCUT BEDTIME Levemir FlexPen 100 unit/mL (3 mL) insulin pen 5 unit subcut QAM fluticasone propionate [Flovent HFA] 220 mcg/actuation HFA aerosol inhaler 1 puff inhalation BID PRN (Reason: Shortness Of Breath Or Wheezing) montelukast 10 mg tablet 10 mg PO QPM metformin 1,000 mg tablet 1,000 mg PO BID amlodipine 10 mg tablet 10 mg PO QPM citalopram 20 mg tablet 20 mg PO QAM allopurinol 100 mg tablet 100 mg PO BID (DME) OneTouch Ultra Test Strip See Rx Instructions .ROUTE .MEDSUPPLY Qty: 10 Rx Instructions: As directed albuterol sulfate [Ventolin HFA] 90 mcg/actuation HFA aerosol inhaler 2 puff inhalation Q4-6H PRN (Reason: Shortness Of Breath Or Wheezing) aspirin 81 mg tablet,delayed release (DR/EC) 81 mg PO QPM atorvastatin 10 mg tablet 10 mg PO QPM gabapentin 600 mg tablet 600 mg PO BID Discontinued lisinopril 40 mg tablet 40 mg PO QPM chlorthalidone 25 mg tablet 25 mg PO QAM Discharge Orders: Discharge Order (Routine); Ordered 12/17/23 Ordered By: Patricia Cartwright Diet: Diabetic diet Activity on Discharge: As tolerated Stand Alone Forms: Patient Portal Discharge page Care Plan Goals: Take IV ertapenem 1 g daily through January 25 for right toe osteomyelitis, monitor BMP CBC and LFTs Q weekly Noted to have soft blood pressures STOP Using lisinopril and chlorthalidone follow BP closely. Health Concerns: Diabetes mellitus Hypertension Plan of Treatment: Outpatient follow-up with primary care physician and Infectious Disease Dr. Karina Medina call for appointment in 2-3 weeks Assessment: As above Patient Instructions: How to Care for Your PICC (Peripherally Inserted Central Catheter) (ED)
--- NOTE | 2023-12-22 15:46 | P.CDIM_ITS ---
PROVIDER RESPONSE TEXT: To clarify, the appropriate diagnosis supported by the clinical indicators: Cellulitis is related to / associated with / due to Diabetes mellitus Type 2 QUERY TEXT: PHYSICIAN'S DOCUMENTATION REQUEST Date of Query: 12/16/2023 11:29 AM EST Patient Name: Marin Valdez Admit Date: 12/14/2023 Dear Patricia Cartwright, A review of the medical record indicates additional documentation may be needed. Please review below and update the documentation accordingly. Clinical Indicators: Acute cellulitis and osteomyelitis R 2nd toe. IV vancomycin/zosyn Stage 2 nonhealing diabetic foot ulcers Insulin dependent type 2 diabetes with hyperglycemia Continue diabetic diet, basal insulin and insulin sliding scale Please clarify the relationship between these conditions: Cellulitis is related to / associated with / due to Diabetes mellitus Type 2 Cellulitis is not related to / associated with / due to Diabetes mellitus Type 2 Other Other (explain) Clinically unable to determine (explain) Thank you, Maxine Nur, CCS, CDIS Use of terms such as suspected, likely, concern for, or probable (associated with a specific diagnosi s that is being evaluated, monitored, or treated as if it exists) are acceptable and can be coded in the inpatient se tting, when documented at the time of discharge. Please use your independent medical judgment in providing your response. THIS QUERY IS PART OF THE PERMANENT MEDICAL RECORD
== END 2023-12-17 15:52 | disposition home health service (06) | DRG 638 ==
LOC: HO.ED 16:25 → HO.EDOVER 21:44
PROVIDERS: Physician Assistant; Admitting Provider Physician Assistant; Emergency Provider Internal Medicine; PCP Internal Medicine; Visit Provider Hospitalist
PROC: 05HD33Z Insertion of Infusion Device into Right Cephalic Vein, Percutaneous Approach (ICD-10-PCS; principal; 2023-12-17 11:40)
DX: E11.69 Type 2 diabetes mellitus with other specified complication (principal); M86.171 Other acute osteomyelitis, right ankle and foot; M10.9 Gout, unspecified; E11.42 Type 2 diabetes mellitus with diabetic polyneuropathy; J45.20 Mild intermittent asthma, uncomplicated; L03.031 Cellulitis of right toe; E11.51 Type 2 diabetes mellitus with diabetic peripheral angiopathy without gangrene; E11.628 Type 2 diabetes mellitus with other skin complications; I70.235 Atherosclerosis of native arteries of right leg with ulceration of other part of foot; E78.5 Hyperlipidemia, unspecified; E87.5 Hyperkalemia; L97.519 Non-pressure chronic ulcer of other part of right foot with unspecified severity; Z79.4 Long term (current) use of insulin; Z79.82 Long term (current) use of aspirin; Z79.84 Long term (current) use of oral hypoglycemic drugs; Z79.899 Other long term (current) drug therapy
CPT/HCPCS: 36415; 36573; 73630; 80048; 80202; 82565; 82947; 83036; 83605; 85025; 85652; 86140; 87040; 93926; 99285; C1751; J1335; J1650; J2543; J3370

== ENCOUNTER → 2023-12-14 18:11 | Outpatient (BNV) | payer MEDICARE, SELFPAY | PROVIDERS: Admitting Provider Physician Assistant; Emergency Provider Internal Medicine; PCP Internal Medicine; Visit Provider Internal Medicine | DX: M86.9 Osteomyelitis, unspecified (principal) | CPT/HCPCS: 99222 ==

== ENCOUNTER → 2023-12-14 18:11 | Outpatient (BNV) | payer OTHER, SELFPAY | PROVIDERS: Admitting Provider Physician Assistant; Emergency Provider Internal Medicine; PCP Internal Medicine; Visit Provider Physician Assistant | DX: M86.9 Osteomyelitis, unspecified (principal); E11.621 Type 2 diabetes mellitus with foot ulcer; L97.512 Non-pressure chronic ulcer of other part of right foot with fat layer exposed | CPT/HCPCS: 99223; 99233; 99239 ==

== ENCOUNTER 2024-01-02 13:28 | Outpatient (AMB) | payer MEDICARE, SELFPAY ==
--- NOTE | 2024-01-02 13:29 | A.OFFVIS_ITS ---
Intake Vital Signs 3 01/02/24 13:48 Height 5 ft 8 in Weight 212 lb BMI 32.2 Pulse 57 Pulse Source Pulse Oximeter Temp 98.0 F Temp Source Oral Pulse Oximetry (%) 99 Intake Visit Reasons: Reff Abiel/ulcer osteomylitis right foot Allergies No Known Allergies Allergy (Verified 01/02/24 13:48) HPI Reff Abiel/ulcer osteomylitis right foot 2 HPI0 Details He is here for evaluation OM right second toe. He has blood culture no growth on 12/14. He has right PICC line. He is tolerating Ertapenem. He started medication on 12/13. PFSH Medical History HLD (hyperlipidemia) Gout Arthritis Diabetes HTN (hypertension) Surgical History History of bowel resection Hx of colonoscopy Social History Alcohol intake: never Patient Tobacco Use Status: Former Tobacco user service: No Review of Systems Const All systems reviewed & are unremarkable except as noted in HPI and below Physical Exam Vital Signs: Last Vital Signs Temp 98.0 F 01/02/24 13:48 Pulse 57 01/02/24 13:48 Pulse Ox 99 01/02/24 13:48 BMI result Body Mass Index 32.2 Const Other: General: cooperative Orientation/consciousness: patient oriented x3 HEENT Head: Yes normal to inspection Mouth: Normal oral and palatal mucosa present Eyes General: appearance normal, both eyes and all related structures Pupils: Equal, round and reactive pupils present Resp Effort & Inspection: normal respiratory effort Cardio Rate: regular rate Rhythm: regular rhythm GI Palpation (GI): Soft to palpation and nontender General: Yes no CVA tenderness Back/Spine/Pelvis Back: no CVA tenderness Skin General skin exam: no rashes or lesions noted Neuro General: patient oriented x3 Cranial nerves: Yes CN's II-XII intact bilaterally and Yes Equal, round and reactive pupils present Extrem Other: toe somewhat swollen,red,no exudate Psych Appearance: grossly normal Assessment & Plan Assessment & Plan (1) Osteomyelitis of toe of right foot: Comment: He is tolerating Ertapenem hopefully help osteomyelitis go dormant/inactive. Code(s): M86.9 - Osteomyelitis, unspecified Plan: Continue until 01/25 and then stop IV antibiotic and remove PICC line. See back prn need, Wound Care prn need. Coding Level of Care Code Est Pt Level 3 (94557) Diagnoses Osteomyelitis of toe of right foot M86.9
[2024-01-02 13:48] VITALS: PULSE 57; TEMP 36.7; O2SAT 99; BMI 32.2
== END 2024-01-02 14:22 | disposition home or self-care (01) ==
LOC: HO.HID 13:28
PROVIDERS: PCP Internal Medicine; Visit Provider Internal Medicine
DX: M86.9 Osteomyelitis, unspecified (principal)
CPT/HCPCS: 99213

== ENCOUNTER → 2024-01-02 13:28 | Outpatient (BNVA) | payer MEDICARE, SELFPAY | PROVIDERS: PCP Internal Medicine; Visit Provider Internal Medicine | DX: M86.071 Acute hematogenous osteomyelitis, right ankle and foot (principal); Z45.2 Encounter for adjustment and management of vascular access device | CPT/HCPCS: 99212 ==

== ENCOUNTER 2024-06-08 13:11 | Emergency (ER) | payer MEDICARE, SELFPAY ==
--- NOTE | ~2024-06-08 | XR_ITS ---
EXAMINATION: XR FOOT, RIGHT CLINICAL INFORMATION: Second toe pain, right foot COMPARISON: Right foot 12/14/2023 TECHNIQUE: AP, lateral, and oblique views of the right foot. FINDINGS: Again seen is severe advanced degenerative changes at the TMT joints similar to prior. The soft tissue swelling and erosive changes present distal phalanx of the second toe seen previously appear improved although there is persistent loss of bone. No new abnormality is seen. No acute fractures or dislocations. Mild degenerative changes are present ankle joint. XR/XR foot RT min 3V IMPRESSION: 1. Improvement in soft tissue swelling and erosive changes distal phalanx second toe. 2. 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 Electronically signed by: Rajiv Garg MD 06/08/2024 02:57 PM EDT
[2024-06-08 13:17] VITALS: BP 121/67; PULSE 76; RESP 18; TEMP 36.4; O2SAT 96; BMI 32.3
--- NOTE | 2024-06-08 13:17 | ED_ITS ---
HPI - General Adult General Chief complaint: Extremity Injury, Lower Stated complaint: Osteomyelitis toe r foot? Time Seen by Provider: 06/08/24 16:14 Mode of arrival: ambulatory Limitations: no limitations History of Present Illness ED Provider: Dr. 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 Patient states that he has an embedded toenail on the greater toe, also there is a chronic ulcer on the 2nd toe. Patient states that the ulcer has been there for months, has not changed, does not hurt, is not draining. Patient states that he has been diagnosed with osteomyelitis in the past. Patient denies fever chills Related Data Home Medications ?Medication ?Instructions ?Recorded ?Confirmed albuterol sulfate 90 mcg/actuation 2 puff inhalation Q4-6H PRN 07/01/23 12/14/23 aerosol inhaler (Ventolin HFA) Shortness Of Breath Or Wheezing allopurinol 100 mg tablet 100 mg PO BID 07/01/23 12/15/23 amlodipine 10 mg tablet 10 mg PO QPM 07/01/23 12/15/23 aspirin 81 mg tablet,delayed 81 mg PO QPM 07/01/23 12/15/23 release atorvastatin 10 mg tablet 10 mg PO QPM 07/01/23 12/15/23 blood sugar diagnostic (LOC&ALLuch #10 ea 07/01/23 Ultra Test strips) citalopram 20 mg tablet 20 mg PO QAM 07/01/23 12/15/23 fluticasone propionate 220 1 puff inhalation BID PRN 07/01/23 12/14/23 mcg/actuation HFA aerosol inhaler Shortness Of Breath Or Wheezing (Flovent HFA) gabapentin 600 mg tablet 600 mg PO BID 07/01/23 12/15/23 insulin detemir U-100 100 unit/mL 5 unit subcut QAM 07/01/23 12/14/23 (3 mL) subcutaneous pen (Levemir FlexPen) metformin 1,000 mg tablet 1,000 mg PO BID 07/01/23 12/15/23 montelukast 10 mg tablet 10 mg PO QPM 07/01/23 12/15/23 acetaminophen 500 mg tablet 500 mg PO Q6H PRN mild pain 12/14/23 12/14/23 fluticasone propionate 50 1 spray intranasal DAILY PRN 12/14/23 12/14/23 mcg/actuation nasal Allergy Symptoms spray,suspension insulin detemir U-100 100 unit/mL 10 unit subcut BEDTIME 12/15/23 12/15/23 (3 mL) subcutaneous pen (Levemir FlexPen) ertapenem 1 gram solution for 1 g IM DAILY 01/02/24 injection Previous Rx's ?Medication ?Instructions ?Recorded cephalexin 500 mg capsule 500 mg PO BID #14 caps 06/08/24 doxycycline monohydrate 100 mg 100 mg PO BID #14 caps 06/08/24 capsule Allergies Allergy/AdvReac Type Severity Reaction Status Date / Time No Known Allergies Allergy Verified 06/08/24 13:20 Review of Systems 2 Review of Systems: Constitutional : No Weight loss, No Fever, No Chills, No Night Sweats, No Fatigue, No Malaise ENT/Mouth : No Hearing loss, No Ear Pain, No Nasal Congestion, No Sinus Pain, No Hoarseness, No sore throat, No Rhinorrhea, No Swallowing Difficulty Eyes: No Eye Pain, No Swelling, No Redness, No Foreign Body, No Discharge, No Vision Changes Cardiovascular : No Chest Pain, No SOB, No Dyspnea on Exertion, No Orthopnea, No Edema, No Palpitations Respiratory : No Cough, No Sputum, No Wheezing, No Smoke Exposure, No Dyspnea Gastrointestinal : No Nausea, No Vomiting, No Diarrhea, No Constipation, No abdominal Pain, No Hematochezia, No Melena Genitourinary : no irregular bleeding, No Dysuria, No Urinary Frequency, No Hematuria, No Urinary Incontinence, No Urgency, No Flank Pain, No Urinary Flow Changes, No Hesitancy Musculoskeletal : No joint pain, No Myalgias, No Joint Swelling Skin : Embedded toenail, chronic ulcer on the 2nd toe of the right foot No Skin Lesions, No rash Neuro : No Weakness, No Numbness, No Paresthesias, No Loss of Consciousness, No Dizziness, No Headache Psych : No Anxiety/Panic, No Depression, No SI/HI/AH/VH, No Social Issues, Heme/Lymph: No Bruising, No Bleeding,No Lymphadenopathy Endocrine : No Polyuria, No Polydipsia, No Temperature Intolerance PMFSH Past Medical History Medical History HLD (hyperlipidemia) Gout Arthritis Diabetes HTN (hypertension) Surgical History History of bowel resection Hx of colonoscopy Social History Social History Alcohol intake: never Patient Tobacco Use Status: Former Tobacco user Advance Directives: No Advance Directives Information Provided: Yes Do you have a plan to hurt others: No Plan service: No Physical Exam ED Vital Signs: Vital Signs - 24 hr 06/08/24 13:17 06/08/24 16:00 Temperature 97.5 F 97.7 F Pulse Rate 76 64 Respiratory Rate 18 15 Blood Pressure 121/67 144/56 H Pulse Oximetry 96 100 Oxygen Delivery Method Room Air Room Air BMI result Body Mass Index 32.3 Const Other: Appearance: Alert. Oriented X3. No acute distress. Eyes: Pupils equal, round and reactive to light. ENT: Pharynx normal. Neck: Normal inspection. Neck supple. No lymph nodes noted. No crepitus CVS: Normal heart rate and rhythm. Pulses normal. Normal S1 and S2 Respiratory: No respiratory distress. Breath sounds normal. No Wheezing. No rales Abdomen: Soft and nontender. No rigidity. No distention. Skin: Skin warm and dry. Normal skin color. Normal skin turgor. Extremities: There is an embedded toenail on the great toe of the right foot, a chronic ulcers the seems well taken care of on the 2nd toe, no wheezing pus, cleaned Neuro: Oriented X 3. No motor deficit. No sensory deficit. Moving all extremities. No slurred speech. CN 2 through 12 grossly intact Psych: calm, cooperative, normal affect Course Course Course Narrative: This is an RME done by DANNIELLE Joe: Additional HPI, ROS, PE not included below will be deferred to primary provider. 73 year old male with concerns of 2nd toe on right foot swelling and discoloration. Earlier today pt was at [facility] who referred him to the ER today. 2 days ago he pulled a toenail from the under the lateral edge of the right great toe, following development of pain, redness, and swelling around the area. Previously on 12/14/2023 he was admitted to [facility] for osteomyeltitis of right 2nd toe, pt states he doesn't feel like his symptoms have resolved. Appearance: Alert.? Oriented X3.? No acute cardiopulmonary distress distress.? Head: Normocephalic, atraumatic, no step-offs or deformities Neck: Normal inspection.? Neck supple.? CVS: Pulses normal.? Respiratory: No respiratory distress.? Abdomen: Soft and nontender.? Skin: ? Normal skin color. Extremities: 5/5 strength to bilateral upper and lower extremities; + Right hallux & 2nd toe swelling and pain Neuro: Oriented X 3.? No motor deficit.? No sensory deficit. Medications Administered Discontinued Medications Generic Name Dose Route Start Last Admin Trade Name Freq PRN Reason Stop Dose Admin Cephalexin HCl 500 mg 06/08/24 17:01 06/08/24 17:52 Cephalexin 500 Mg Capsule PO 06/08/24 17:02 500 mg ONCE ONE Administration Doxycycline Monohydrate 100 mg 06/08/24 17:01 06/08/24 17:52 Doxycycline Monohydrate 100 Mg Capsule PO 06/08/24 17:02 100 mg ONCE ONE Administration Lidocaine HCl 5 ml 06/08/24 17:00 06/08/24 18:20 Lidocaine Hcl 2 % Mpf 5 Ml Vial INFILTRATI 06/08/24 17:01 5 ml ONCE ONE Administration Medical Decision Making Medical Decision Making [facility] Narrative: Per patient's request, the greater toe was numbed with lidocaine, then the nail edges were removed. Patient had a very scant amount of pus resident. -patient was given p.o. Keflex and doxycycline -patient tolerated well the procedure. Lab Data [facility] Lab Attestation statement: I reviewed the patient's lab results. 06/08/24 13:35 06/08/24 13:35 Labs: Lab Results 06/08/24 Range/Units 13:35 WBC 9.6 (4.8-10.8) X10*3/uL RBC 4.26 L (4.60-5.80) X10*6/uL Hgb 12.6 L (14.0-18.0) g/dl Hct 36.3 L (42.0-52.0) % MCV 85.2 (80.0-98.0) fL MCH 29.6 (27.0-33.0) pg MCHC 34.7 (31.0-36.0) g/dl RDW 13.6 (11.0-16.0) % Plt Count 256 (160-400) X10*3/uL MPV 11.3 (9.4-12.4) fL Immature Gran % (Auto) 0.3 (0.0-0.4) % Neut % (Auto) 66.4 (45-73) % Lymph % (Auto) 27.1 (20-40) % Door % (Auto) 5.0 (2-11) % Eos % (Auto) 0.6 (0-4) % Baso % (Auto) 0.6 (0-2) % Lymph # (Auto) 2.6 (1.2-4.9) X10*3/uL Door # (Auto) 0.5 (0.1-1.2) X10*3/uL Eos # (Auto) 0.1 (0.0-0.4) X10*3/uL Baso # (Auto) 0.1 (0.0-0.2) X10*3/uL Abs Immat Gran (auto) 0.03 (0.00-0.03) X10*3/uL Absolute Neuts (auto) 6.4 (2.0-8.3) x10*3/uL Absolute Nucleated RBC 0.000 (0.0-0.012) X10*3/uL Nucleated RBC % (auto) 0.0 (0.0-0.2) /100WBC ESR 12 (0-15) MM/HR Sodium 138 (135-145) mmol/L Potassium 4.3 (3.3-5.1) mmol/L Chloride 108 (96-108) mmol/L Carbon Dioxide 19 L (22-29) mmol/L Anion Gap 15 (12-20) BUN 27 H (9-16) mg/dL Creatinine 1.34 (0.5-1.4) mg/dL Estim Creat Clear Calc 56.1 Estimated GFR 52 Random Glucose 275 H (60-115) mg/dL Calcium 9.3 (8.4-10.2) mg/dL Total Bilirubin 0.7 (0.0-1.0) mg/dL AST 23 (5-37) U/L ALT 26 (0-40) U/L Alkaline Phosphatase 75 (39-117) U/L C-Reactive Protein < 0.10 (< or = 0.50) mg/dL Total Protein 7.2 (6.5-8.0) g/dL Albumin 4.0 (3.5-5.0) g/dL Discharge Plan Discharge Clinical Impression: Embedded toenail Patient Disposition: Home, Self-Care Instructions: Ingrown Nail (ED), Warm Compress or Soak (ED) Additional Instructions: Please follow-up with your primary care physician tomorrow. If you have any worsening or new symptoms, please return to the emergency room or call 911 Prescriptions: New doxycycline monohydrate 100 mg capsule 100 mg PO BID Qty: 14 0RF cephalexin 500 mg capsule 500 mg PO BID Qty: 14 0RF No Action acetaminophen 500 mg tablet 500 mg PO Q6H PRN (Reason: mild pain) fluticasone propionate 50 mcg/actuation spray,suspension 1 spray intranasal DAILY PRN (Reason: Allergy Symptoms) Levemir FlexPen 100 unit/mL (3 mL) Insulin Pen 10 unit SUBCUT BEDTIME Levemir FlexPen 100 unit/mL (3 mL) insulin pen 5 unit subcut QAM fluticasone propionate [Flovent HFA] 220 mcg/actuation HFA aerosol inhaler 1 puff inhalation BID PRN (Reason: Shortness Of Breath Or Wheezing) montelukast 10 mg tablet 10 mg PO QPM metformin 1,000 mg tablet 1,000 mg PO BID amlodipine 10 mg tablet 10 mg PO QPM citalopram 20 mg tablet 20 mg PO QAM allopurinol 100 mg tablet 100 mg PO BID (DME) OneTouch Ultra Test Strip See Rx Instructions .ROUTE .MEDSUPPLY Qty: 10 Rx Instructions: As directed albuterol sulfate [Ventolin HFA] 90 mcg/actuation HFA aerosol inhaler 2 puff inhalation Q4-6H PRN (Reason: Shortness Of Breath Or Wheezing) aspirin 81 mg tablet,delayed release (DR/EC) 81 mg PO QPM atorvastatin 10 mg tablet 10 mg PO QPM gabapentin 600 mg tablet 600 mg PO BID ertapenem 1 gram recon soln 1 g IM DAILY Print Language: French
[2024-06-08 13:38] LABS: MANUAL DIFF FLAG NO
[2024-06-08 14:04] LABS: Alanine Aminotransferase 26 U/L (0-40); Alkaline Phosphatase 75 U/L (39-117); Anion Gap 15 (12-20); Aspartate Amino Transferase 23 U/L (5-37); Bilirubin Total 0.7 mg/dL (0.0-1.0); Blood Urea Nitrogen 27 mg/dL (9-16); C Reactive Protein < 0.10 mg/dL (< or = 0.50); Calcium 9.3 mg/dL (8.4-10.2); Carbon Dioxide 19 mmol/L (22-29); Chloride 108 mmol/L (96-108); Creatinine Clr Calc Pharmacy 56.1; Estimated Glomerular Filt Rate 52; Glucose Random 275 mg/dL (60-115); Potassium 4.3 mmol/L (3.3-5.1); Sodium 138 mmol/L (135-145); Total Protein 7.2 g/dL (6.5-8.0)
[2024-06-08 14:36] LABS: Erythrocyte Sedimentation Rate 12 MM/HR (0-15)
[2024-06-08 15:58] LABS: Basophils Absolute Auto 0.1 X10*3/uL (0.0-0.2); Basophils Percent Auto 0.6 % (0-2); Eosinophils Absolute Auto 0.1 X10*3/uL (0.0-0.4); Eosinophils Percent Auto 0.6 % (0-4); Hematocrit 36.3 % (42.0-52.0); Hemoglobin 12.6 g/dl (14.0-18.0); Imm Gran Abs Auto 0.03 X10*3/uL (0.00-0.03); Imm Gran Pct Auto 0.3 % (0.0-0.4); Lymphocytes Absolute Auto 2.6 X10*3/uL (1.2-4.9); Lymphocytes Percent Auto 27.1 % (20-40); Mean Corpuscular HGB Conc 34.7 g/dl (31.0-36.0); Mean Corpuscular Hemoglobin 29.6 pg (27.0-33.0); Mean Corpuscular Volume 85.2 fL (80.0-98.0); Mean Platelet Volume 11.3 fL (9.4-12.4); Monocytes Absolute Auto 0.5 X10*3/uL (0.1-1.2); Neutrophils Absolute Auto 6.4 x10*3/uL (2.0-8.3); Neutrophils Percent Auto 66.4 % (45-73); Platelet Count 256 X10*3/uL (160-400); Red Blood Count 4.26 X10*6/uL (4.60-5.80); Red Cell Distribution Width 13.6 % (11.0-16.0); White Blood Count 9.6 X10*3/uL (4.8-10.8)
[2024-06-08 16:00] VITALS: BP 144/56; PULSE 64; RESP 15; TEMP 36.5; O2SAT 100
[2024-06-08] MEDS: cephALEXin 500 MG CAPSULE PO (17:52)
[2024-06-08] MEDS: Doxycycline Monohydrate 100 MG CAPSULE PO (17:52)
--- NOTE | 2024-06-08 17:52 | PC.NURSE ---
Pt. medicated per DEC.
[2024-06-08] MEDS: Lidocaine HCl 2 % MPF 5 ML VIAL INFILTRATI (18:20)
[2024-06-08 18:27] VITALS: BP 158/70; PULSE 61; RESP 14; TEMP 36.7; O2SAT 99
[2024-06-08] MEDS: Bacitracin Oint 0.9 GM PACKET 1 APPL TOPICAL (18:59)
[2024-06-08 19:01] VITALS: BP 158/70; PULSE 61; RESP 14; TEMP 36.7; O2SAT 99
== END 2024-06-08 19:02 | disposition home or self-care (01) ==
PROVIDERS: Physician Assistant; Emergency Provider Emergency Medicine; PCP Internal Medicine
DX: M86.8X7 Other osteomyelitis, ankle and foot (principal); M79.671 Pain in right foot; Z79.899 Other long term (current) drug therapy
CPT/HCPCS: 36415; 73630; 80053; 85025; 85652; 86140; 99283; 99284

== ENCOUNTER 2025-05-27 16:01 | Outpatient (REF) | payer MEDICARE, SELFPAY ==
[2025-05-27 17:44] LABS: MANUAL DIFF FLAG NO
[2025-05-27 17:47] LABS: Hematocrit 40.6 % (42.0-52.0); Hemoglobin 13.7 g/dl (14.0-18.0); Imm Gran Abs Auto 0.06 X10*3/uL (0.00-0.03); Imm Gran Pct Auto 0.6 % (0.0-0.4); Lymphocytes Absolute Auto 3.5 X10*3/uL (1.2-4.9); Mean Corpuscular HGB Conc 33.7 g/dl (31.0-36.0); Mean Corpuscular Hemoglobin 29.5 pg (27.0-33.0); Mean Corpuscular Volume 87.5 fL (80.0-98.0); NRBC Abs Auto 0.000 X10*3/uL (0.0-0.012); NRBC Pct Auto 0.0 /100WBC (0.0-0.2); Platelet Count 246 X10*3/uL (160-400); Red Blood Count 4.64 X10*6/uL (4.60-5.80); White Blood Count 10.7 X10*3/uL (4.8-10.8)
[2025-05-27 18:07] LABS: Alanine Aminotransferase 18 U/L (0-40); Albumin Level 4.0 g/dL (3.5-5.0); Alkaline Phosphatase 72 U/L (39-117); Anion Gap 17 (12-20); Aspartate Amino Transferase 36 U/L (5-37); Blood Urea Nitrogen 17 mg/dL (9-16); Calcium 8.5 mg/dL (8.4-10.2); Carbon Dioxide 23 mmol/L (22-29); Chloride 103 mmol/L (96-108); Estimated Glomerular Filt Rate > 60; Potassium 5.0 mmol/L (3.3-5.1); Sodium 138 mmol/L (135-145); Total Protein 7.7 g/dL (6.5-8.0)
== END 2025-05-27 16:02 | disposition home or self-care (01) ==
LOC: HO.HHCL 16:01
PROVIDERS: PCP Internal Medicine; Visit Provider Nurse Practitioner Family
DX: E11.65 Type 2 diabetes mellitus with hyperglycemia (principal); Z79.4 Long term (current) use of insulin
CPT/HCPCS: 36415; 80053; 85025

== ENCOUNTER 2025-07-13 11:51 | Outpatient (REF) | payer MEDICARE, SELFPAY ==
--- NOTE | ~2025-07-13 | XR_ITS ---
EXAMINATION: XR SHOULDER, LEFT CLINICAL INFORMATION: M25.512 - Pain in left shoulder COMPARISON: May 23, 2023 TECHNIQUE: AP and Y-view projection of the left shoulder. FINDINGS: Joint space narrowing, sclerosis along the articular surface as well as subchondral cyst formation, glenohumeral joint, acromioclavicular joint and deformity of the humeral head. Marginal osteophyte formation in the inferior glenoid foci of the scapula. No acute cortical disruption. Joint space narrowing/loss glenohumeral joint and acromioclavicular joint and acromiohumeral joints. XR/XR shoulder LT min 2V IMPRESSION: Severe osteoarthrosis/osteoarthritis, left shoulder. Concerning chronic/old rotator cuff tendon tear. Electronically signed by: Vasiliy Mcdonald MD 07/13/2025 12:47 PM EDT
--- OUTSIDE RECORDS SUMMARY | 2025-07-14 13:36 | XMS_ITS | Encounter Summary ---
Author Organization [employer] Address [address] [place] [address] 7t [place] [address] Care Team Providers Care Property Appraiser Name Role Phone Marleny Beebe MD Primary Care Provider + Kavin Tan PharmD Unavailable [phone] Encounter Details Date Type Department Care Team (Late st Contact Info) Description 10/25/2022 Orders Only [facility] MEDICINE [address] [place] [address] Jyothi Mccarthy LPN Social History Tobacco Use [...] Description 08/10/2025 9:00 AM EDT Medication Management [facility] [address] [place] [address] Kavin Tan, PharmD 230 [place] [address] 08/31/2025 10:30 AM EST Office Visit [facility] [address] [place] [address] Marleny Beebe MD [address] [place] [address] documented as of this encounter Visit Diagnoses Not on filedocumented in this encounter Care Teams Property Appraiser Relationship Specialty Start Date End Date Marleny Beebe MD 230 [place] [address] PCP - General Family Medicine 12/25/16 Kavin Tan, Ana 230 [place] [address] Pharmacist Pharmacy 07/13/25 documented as of this encounter
--- OUTSIDE RECORDS SUMMARY | 2025-07-14 13:36 | XMS_ITS | Encounter Summary ---
Author Organization [employer] Address [address] [facility] 7t [place] [address] Care Team Providers Care Medical Corps Officer Name Role Phone Marleny Beebe MD Primary Care Provider + Kavin Tan PharmD Unavailable [phone] Encounter Details Date Type Department Care Team (Late st Contact Info) Description 07/14/2025 Refill [facility] MED[facility]INE 230 [place] [address] Marleny Beebe MD 230 [place] [address] Social History Tobacco Use Types Packs/Day Years [...] Description 08/10/2025 9:00 AM EDT Medication Management [facility] MED[facility]INE [address] [place] [phone] Kavin Tan, PharmD [address] [place] [address] 08/31/2025 10:30 AM EST Office Visit [facility] [address] [place] [address] Marleny Beebe MD [address] [place] [address] documented as of this encounter Visit Diagnoses Not on filedocumented in this encounter Care Teams Medical Corps Officer Relationship Specialty Start Date End Date Marleny Beebe MD [address] [place] [address] PCP - General Family Medicine 12/25/16 Kavin Tan, PharmD [address] [place] [address] Pharmacist Pharmacy 07/13/25 documented as of this encounter
--- OUTSIDE RECORDS SUMMARY | 2025-07-14 13:36 | XMS_ITS | Encounter Summary ---
Author Organization [employer] Address [address] [place] [address] 7t [place] [address] Care Team Providers Care Narcotics And Vice Detective Name Role Phone Marleny Beebe MD Primary Care Provider + Kavin Tan PharmD Unavailable [phone] Reason for Visit * Reason Comments Med Refill Encounter Details Date Type Department Care Team (Late st Contact Info) Description 03/06/2023 Refill [facility]INE [address] [place] [address] [phone] Marleny Beebe MD [address] [place] [address] Primary hypertension; Controlled type 2 diabetes mellitus with hyperglycemia, with long-term current use of insulin ([facility]) Social History Tobacco Use Types Packs/Day [...] Description 08/10/2025 9:00 AM EDT Medication Management [facility]INE [address] [place] [address] [phone] Kavin Tan, PharmD 230 [place] [address] 08/31/2025 10:30 AM EST Office Visit [facility] MEDICINE [address] [place] [address] [phone] Marleny Beebe MD [address] [place] [address] documented as of this encounter Visit Diagnoses Diagnosis Primary hypertension Unspecified essential hypertension Controlled type 2 diabetes mellitus with hyperglycemia, with long-term current use of insulin (HCC) documented in this encounter Care Teams Narcotics And Vice Detective Relationship Specialty Start Date End Date Marleny Beebe MD [address] [place] [address] PCP - General Family Medicine 12/25/16 Kavin Tan, NahumD [address] [place] [address] [phone] Pharmacist Pharmacy 07/13/25 documented as of this encounter
--- OUTSIDE RECORDS SUMMARY | 2025-07-14 13:36 | XMS_ITS | Encounter Summary ---
Author Organization [employer] Address [address] [place] [address] 7t [place] [address] Care Team Providers Care Admission Nurse Name Role Phone Marleny Beebe MD Primary Care Provider + Kavin Tan PharmD Unavailable [phone] Encounter Details Date Type Department Care Team (Late st Contact Info) Description 05/26/2023 Orders Only [facility] CHC MED & PEDS [address] [place], [place] [phone] Dejah Stewart LPN Social History Tobacco Use [...] Description 08/10/2025 9:00 AM EDT Medication Management [facility] MEDICINE [address] [place] [address] [phone] Kavin Tan, PharmD 230 [place] [address] 08/31/2025 10:30 AM EST Office Visit [facility] MEDICINE [address] [place] [address] [phone] Marleny Beebe MD 230 [place] [address] documented as of this encounter Visit Diagnoses Not on filedocumented in this encounter Care Teams Admission Nurse Relationship Specialty Start Date End Date Marleny Beebe MD [address] [place] [address] [phone] PCP - General Family Medicine 12/25/16 Kavin Tan, NahumD [address] [place] [address] [phone] Pharmacist Pharmacy 07/13/25 documented as of this encounter
--- OUTSIDE RECORDS SUMMARY | 2025-07-14 13:36 | XMS_ITS | Encounter Summary ---
Author Organization [employer] Address [address] [place] [address] 7t [place] [address] Care Team Providers Care Adoption Worker Name Role Phone Marleny Beebe MD Primary Care Provider + Kavin Tan PharmD Unavailable [phone] Reason for Visit * Reason Comments Med Refill Encounter Details Date Type Department Care Team (Late st Contact Info) Description 01/29/2023 Refill [facility] MEDICINE [address] [place] [address] [phone] Marleny Beebe MD [address] [place] [address] Controlled type 2 diabetes mellitus with hyperglycemia, with long-term current use of insulin ([facility]); Primary hypertension Social History Tobacco Use Types [...] 9:00 AM EDT Medication Management [facility] MEDICINE [address] [place] [address] [phone] Kavin Tan, PharmD 230 [place] [address] 08/31/2025 10:30 AM EST Office Visit [facility] MEDICINE [address] [place] [address] [phone] Marleny Beebe MD [address] [place] [address] 1937[address] documented as of this encounter Visit Diagnoses Diagnosis Controlled type 2 diabetes mellitus with hyperglycemia, with long-term current use of insulin (HCC) Primary hypertension Unspecified essential hypertension documented in this encounter Care Teams Adoption Worker Relationship Specialty Start Date End Date Marleny Beebe MD [address] [place] [address] PCP - General Family Medicine 12/25/16 Kavin Tan, NahumD [address] [place] [address] [phone] Pharmacist Pharmacy 07/13/25 documented as of this encounter
--- OUTSIDE RECORDS SUMMARY | 2025-07-14 13:36 | XMS_ITS | Clinical Summary ---
Author Organization [employer] Address [address] [facility] 7[address] [place] [address] Care Team Providers Care Customer Solutions Supervisor Name Role Phone Marleny Beebe MD Primary Care Provider + Kavin Tan PharmD Unavailable [phone] Allergies No known active allergies Medications * This document contains information received from the source organization and may not represent a complete record from that organization. albuterol 108 (90 Base) MCG/ACT inhalerIndicatio ns:COPD with acute exacerbation (CMS/HCC) ([facility]) Inhale 2 puffs every 6 (six) [...] hyperglycemia, with long-term current use of insulin ([facility]) INJECT 20 UNITS SUBCUTANEOUSLY EVERY EVENING 15 mL Active Blood Glucose Monitoring Suppl (ONE TOUCH ULTRA 2) w/Device kitIndications:T ype 2 diabetes mellitus with hyperglycemia, with long-term current use of insulin ([facility]) 1 each with breakfast and with evening meal. 1 kit Active insulin pen needle (Pentips) 32G x 4 mm misc Use as instructed 100 each Active Lancets (OneTouch Delica Plus [id number]) misc TEST BLOOD SUGAR THREE TIMES DAILY [...] polyneuropathy associated with type 2 diabetes mellitus (HCC) TAKE 1 TABLET BY MOUTH TWICE DAILY IN THE MORNING AND IN THE EVENING 60 tablet 1 Active lidocaine (Lidoderm) 5 % patchIndications :Complete tear of rotator cuff, unspecified laterality, unspecified whether traumatic Apply 1 patch topically Once per day. Remove & discard patch within 12 hours or as directed by MD. 30 patch Active Blood Pressure Monitoring kitIndications:B enign essential hypertension Use to measure BP daily 1 kit Active ertapenem (INVanz) 1 g injection Infuse 1 g into a venous catheter Once daily. 024 2024 Discontinued(T herapy completed) gabapentin (Neurontin) 600 MG tabletIndication s:Diabetic polyneuropathy associated with type 2 diabetes mellitus (HCC) TAKE 1 TABLET BY MOUTH TWICE [...] very likely that he also has microvascular INVESTMENT ACCOUNTANT changes Will try to optimize chronic medical [...] CBC today. -Has appointment with a new Violent Crimes Detective on 12/31 at 10:30 am, information given [...] bone changes Order X-Ray Need margarette with box car washer, referral had been sent previously Get X-ray and Fu with me Assessment & Plan (07/24/2023 11:27 AM EDT): Start Duricef x 1 wk and will fu with him then Counseled about soaking feet in warm water with Epson salt Avoid poking lesions Fu 1 wk [place] of toe 07/24/2023 Assessment & Plan (09/18/2023 11:20 AM EST): Right second toe Pt need to reschedule appointment w/ box car washer Assessment & Plan (07/24/2023 11:30 AM EDT): R toe Refer to box car washer Will need custom made shoes Vitamin D deficiency 06/02/2023 Assessment & Plan (07/24/2023 11:06 AM EDT): Will start Vit-D supplementations x 6 month Encouraged outdoor exercise for sun exposure for 15 min /day Assessment & Plan (06/06/2023 8:54 AM EDT): Start Vit D supplementation x 6m Counseled re outdoor exercise COPD with acute exacerbation ([facility]) 3 Assessment & Plan (06/06/2023 8:53 AM [...] airdroplets contact Stage 3 chronic kidney disease ([facility]) 05/22/2023 06/02/2023 Foot pain 07/08/2018 07/09/2025 Closed fracture of foot 11/03/201706/14 CKD (chronic kidney disease) stage 3, GFR 30-59 ml/min ([facility]) 05/03/2013 06/02/2023 Encounters * This document contains information received from the source organization and may not represent a complete record from that organization. Date Type Department Care Team Description 07/14/2025 Refill [facility] [address] [place] [address] Marleny Beebe MD 07/14/2025 Refill [facility] [address] [place] [address] Marleny Beebe MD 07/14/2025 Telephone [facility] [address] [place] [address] Marleny Beebe MD [facility] 07/13/2025 Telephone [facility] [address] [place] [phone] Marleny Beebe MD Insurance 07/13/2025 Travel 07/11/2025 Telephone [facility] [address] [place] [phone] Marleny Beebe MD 07/11/2025 Orders Only [address] [address] Marleny Beebe MD Benign essential hypertension (Primary Dx) 07/08/2025 Patient Outreach [facility] [address] [place] [phone] Marleny Beebe MD Care Coordination (CHW outreach for SDOH housing search-LVM ) 07/07/2025 3:45 PM EDT Office Visit [facility] [address] [place] [phone] Marleny Beebe MD Type 2 diabetes mellitus with hyperglycemia, with long-term current use of insulin (CMS/HCC) (Primary Dx); Cognitive dysfunction; Benign essential hypertension; Recurrent major depressive episodes (CMS/HCC); Benign paroxysmal positional vertigo, unspecified laterality; Chronic midline low back pain, unspecified whether sciatica present; Obstructive sleep apnea syndrome; Tinea pedis of right foot; Diabetic polyneuropathy associated with type 2 diabetes mellitus (CMS/HCC); Complete tear of rotator cuff, unspecified laterality, unspecified whether traumatic 07/07/2025 Travel 07/06/[address] [address] Marleny Beebe MD chart Prep 07/05/2025 Telephone [facility] [address] [place] [address] [phone] Marleny Beebe MD Appt change 06/29/2025 Patient Outreach [address] [address] Marleny Beebe MD Pre-visit Planning ((Unable to reach for PVP screening, LVM) to be completed in office ) 06/14/2025 3:20 PM EDT Office Visit [facility] [address] [place] [phone] Jasen Lamar MD Type 2 diabetes mellitus with hyperglycemia, with long-term current use of insulin ([facility]) (Primary Dx); Elevated glucose 06/14/2025 Travel 06/14/2025 Telephone [facility] [address] [place] [phone] Marleny Beebe MD telephone call 06/09/[address] [address] Marleny Beebe MD telephone call 06/03/2025 2:40 PM EDT Office Visit [facility] [address] [place] [phone] Jasen Lamar MD Acute cough (Primary Dx); Wheezing; Chronic obstructive pulmonary disease, unspecified COPD type (CMS/[facility]); Syncope and collapse 06/03/2025 Travel 06/02/2025 Patient Outreach [facility] [address] [place], [place] [phone] Marleny Beebe MD Transition Of Care (Tcm) (HDF unscheduled.) 06/02/2025 Telephone [facility] [address] [place] [phone] Marleny Beebe MD Hospital Follow-up 05/27/2025 3:20 PM EDT Office Visit [facility] [address] [place] [phone] Judy Meraz NP Complete tear of rotator cuff, unspecified laterality, unspecified whether traumatic (Primary Dx); Chronic pain of left knee; Type 2 diabetes mellitus with hyperglycemia, with long-term current use of insulin (CMS/[facility]); Benign essential hypertension; Moderate mixed hyperlipidemia not requiring statin therapy; PAD (peripheral artery disease) (CMS/[facility]); Recurrent major depressive episodes (CMS/[facility]); Diabetic polyneuropathy associated with type 2 diabetes mellitus (CMS/HCC); Controlled type 2 diabetes mellitus with hyperglycemia, with long-term current use of insulin ([facility]); Primary hypertension; At high risk for cardiovascular disease; Anxiety and depression; Vertigo 05/27/2025 Travel 05/09/2025 Telephone [facility] [address] [place] [address] [phone] Marleny Beebe MD from Last 3 Months [...] EDT Medication Management [facility] [address] [place] [phone] Kavin Tan, PharmD [address] [place] [phone] 08/31/2025 10:30 AM EST Office Visit [facility] [address] [place] [phone] Marleny Beebe MD [address] [place] [phone] Health Maintenance Due Date Last Done Comments [...] 05/23/2024 05/23/2023, 09/14/2020 Lipid Panel 05/23/2024 05/23/2023, 05/2022, 07/31/2020 Dental X-Ray: [facility] 08/08/2024 08/07/20 [...] hyperglycemia, with long-term current use of insulin ([facility]) COMPREHENSIVE METABOLIC PANEL Routine 05/27/2025 4:11 PM EDT Type 2 diabetes mellitus with hyperglycemia, with long-term current use of insulin (CMS/[facility]) POCT GLUCOSE Routine 05/27/2025 3:40 PM EDT [...] (ABNORMAL) POCT A1c (06/14/2025 3:04 PM EDT) Hemoglobin A1C 8.3(A) 4.0 - 5.7 % Blood 06/14/2025 3:04 PM EDT us Jasen Lamar MD POINT OF CARE TEST ENTER/EDIT OR DERABLES Final Result * Influenza B (ID NOW Rapid Molecular) (06/03/2025 2:48 PM EDT) Pathologist [facility] Influenza B Negative Negative, Indeterminate [facility] Swab 06/03/2025 2:48 PM EDT us Jasen Lamar MD POINT OF CARE TEST ENTER/EDIT OR DERABLES Final Result Performing Organization Address [facility] Co de Phone Number [facility] [address] [place] [phone] * Influenza A (ID NOW Rapid Molecular) (06/03/2025 2:48 PM EDT) [facility] Influenza A Negative Negative, Indeterminate [facility] Swab 06/03/2025 2:48 PM EDT us Jasen Lamar MD POINT OF CARE TEST ENTER/EDIT OR DERABLES Final Result Performing Organization Address [facility] de Phone Number [facility] [address] [place] [phone] * POCT Rapid COVID Ag (06/03/2025 2:48 PM EDT) [facility] Rapid COVID Ag Negative [facility] Swab 06/03/2025 2:48 PM EDT us Jasen Lamar MD POINT OF CARE TEST ENTER/EDIT OR DERABLES Final Result Performing Organization Address [facility] de Phone Number [facility] [address] [place] [phone] * (ABNORMAL) CBC auto differential (05/27/2025 4:11 PM EDT) [facility] White Blood Count 10.7 4.8 - 10.8 X10*3/uL [facility] Red Blood Count 4.64 4.60 - 5.80 X10*6/uL [facility] Hemoglobin 13.7(L) 14.0 - 18.0 g/dl [facility] Hematocrit 40.6(L) 42.0 - 52.0 % [facility] Mean Corpuscular Volume 87.5 80.0 - 98.0 fL [facility] Mean Corpuscular Hemoglobin 29.5 27.0 - 33.0 pg [facility] Mean Corpuscular HGB Conc 33.7 31.0 - 36.0 g/dl [facility] Red Cell Distribution Width 13.2 11.0 - 16.0 % [facility] Platelet Count 246 160 - 400 X10*3/uL [facility] Mean Platelet Volume 10.8 9.4 - 12.4 fL [facility] Neutrophils Percent Auto 56.0 45 - 73 % [facility] Imm Gran Pct Auto 0.6(H) 0.0 - 0.4 % [facility] Lymphocytes Percent Auto 32.7 20 - 40 % [facility] Monocytes Percent Auto 6.3 2 - 11 % [facility] Eosinophils Percent Auto 3.8 0 - 4 % [facility] Basophils Percent Auto 0.6 0 - 2 % [facility] NRBC Pct Auto 0.0 0.0 - 0.2 /100WBC [facility] Neutrophils Absolute Auto 6.0 2.0 - 8.3 x10*3/uL [facility] Imm Gran Abs Auto 0.06(H) 0.00 - 0.03 X10*3/uL [facility] Lymphocytes Absolute Auto 3.5 1.2 - 4.9 X10*3/uL [facility] Monocytes Absolute Auto 0.7 0.1 - 1.2 X10*3/uL [facility] Eosinophils Absolute Auto 0.4 0.0 - 0.4 X10*3/uL [facility] Basophils Absolute Auto 0.1 0.0 - 0.2 X10*3/uL [facility] NRBC Abs Auto 0.000 0.0 - 0.012 X10*3/uL [facility] Blood Venous blood specimen / Unknown 05/27/2025 4:11 PM EDT 05/27/2025 5:41 PM EDT Judy Meraz NAVAL AIRCREWMAN OPERATOR LAB BLOOD ORDERABLES Final Resul t [facility] [address] [place] [phone] [phone] * (ABNORMAL) Comprehensive Metabolic Panel (05/27/2025 4:11 PM EDT) Sodium 138 135 - 145 mmol/L [facility] Potassium 5.0 3.3 - 5.1 mmol/L [facility] Comment:Mild Hemolysis.Inter pret result with caution Chloride 103 96 - 108 mmol/L [facility] Carbon Dioxide 23 22 - 29 mmol/L [facility] Anion Gap 17 12 - 20 [facility] Urea Nitrogen (BUN) 17(H) 9 - 16 mg/dL [facility] Creatinine, Serum 1.01 0.5 - 1.4 mg/dL [facility] Estimated Glomerular Filt Rate >60 [facility] Comment:Chronic Kidney Disea se: Estimated GFR < 60 mL/min/1.47i2Bniwio Kidney Disease: Estimated GFR < 15 mL/min/1.73m2 Glucose 138(H) 60 - 115 mg/dL [facility] Calcium 8.5 8.4 - 10.2 mg/dL [facility] Bilirubin, Total 0.4 0.0 - 1.0 mg/dL [facility] Aspartate Amino Transferase 36 5 - 37 U/L [facility] Comment:Mild Hemolysis.Inter pret result with caution Alanine Aminotransferase 18 0 - 40 U/L [facility] Total Protein 7.7 6.5 - 8.0 g/dL [facility] Comment:Mild Hemolysis.Inter pret result with caution Albumin Level 4.0 3.5 - 5.0 g/dL [facility] Alkaline Phosphatase 72 39 - 117 U/L [facility] Blood Venous blood specimen / Unknown 05/27/2025 4:11 PM EDT 05/27/2025 5:41 PM EDT us Judy Graef NAVAL AIRCREWMAN OPERATOR LAB BLOOD ORDERABLES Final Resul t Performing Organization Address [facility] Co de Phone Number [facility] [address] [place] [address] [phone] * Lipid Panel with Reflex to Direct LDL (05/23/2023 11:16 AM EDT) Triglycerides 91 mg/dL [facility] Comment:Desirable Triglyceri de: less than 150 mg/dLBorderline High Triglyceride 150-199 mg/dLHigh Triglyceride: 200-499 mg/dLVery High Triglyceride: greater than or equal to 5OO mg/dL Cholesterol 129 mg/dL [facility] Comment:Desirable Cholestero l: less than 200 mg/dLBorderline High Cholesterol: 200-239 mg/dLHigh Cholesterol: greater than 239 mg/dL LDL Cholesterol Calculated 73 mg/dl [facility] Comment:Desirable LDL: less than 100 mg/dLNear Optimal/Above Optimal LDL: 110- 129 mg/dLBorderline High LDL: 130-159 mg/dLHigh LDL: 160-189 mg/dLVery High LDL: greater than or equal to 190 mg/dL HDL Cholesterol 38 mg/dL [facility] Comment:Desirable HDL: great er than 40 mg/dL Note: This HDL assay may give artificially low results in patients with liver disease. Blood 05/23/2023 11:1 6 AM EDT 05/23/2023 1:49 PM EDT us Marleny Beebe MD LAB BLOOD ORDERABLES Fin al Result Performing Organization Address [facility] Co de Phone Number [facility] [address] [place] [address] [phone] * Hepatitis Panel, General (05/23/2023 11:16 AM EDT) Hepatitis A IgM Nonreactive Nonreactive [facility] Comment:IgM antibodies to COTTO V not detected; does not exclude earlyacute or recovered HAV infection. ~Hepatitis B Surface Antibody REACTIVE Nonreactive [facility] Comment:REACTIVE: > 11.99 mI U/mL Hepatitis B Core Antibody Reactive Nonreactive [facility] Comment:Presumptive evidence of anti-HBc. Hepatitis C Antibody Nonreactive Nonreactive [facility] Comment:Antibodies to HCV no t detected; does not exclude early acuteHCV infection. Hepatitis B Surface Ag Negative Negative [facility] Blood 05/23/2023 11:1 6 AM EDT 05/23/2023 1:49 PM EDT us Marleny Beebe MD LAB BLOOD ORDERABLES Fin al Result Performing Organization Address [facility] Co de Phone Number [facility] [address] [place] [address] [phone] * Albumin, Random Urine W/Creatinine (05/23/2023 11:15 AM EDT) Creatinine, Urine 68.04 mg/dL [facility] Microalbumin Urine 12.0 mg/L [facility] Microalbum Creatinine Ratio Ur 17.6 ug/mg cr [facility] Comment:Albumin/Creatinine R atio Reference Ranges: Normal: < 30 ug/mg creatinine Microalbuminuria: 30 - 300 ug/mg creatinineClinical Albuminuria: > 300 ug/mg creatinine 05/23/2023 11:1 5 AM EDT 05/23/2023 4:32 PM EDT us Marleny Beebe MD LAB URINE ORDERABLES Fin al Result Performing Organization Address City/[facility] Co de Phone Number [facility] [address] [place] [address] [phone] from Last 3 Months or Most Recently Relevant to Health Maintenance Insurance [employer] MEDICARE REPLACEMENT [facility] - HSN FULL (MEDICAID) * Guarantor: Marin Valdez Account Type Relation to Patient Date of Phone Billing Address Personal/Family Self [address] [place] Care Teams Customer Solutions Supervisor Relationship Specialty Start Date End Date Marleny Beebe MD [address] [place] [address] PCP - General Family Medicine 12/25/16 Kavin Tan, NahumD [address] [place] [address] Pharmacist Pharmacy 07/13/25
--- OUTSIDE RECORDS SUMMARY | 2025-07-14 13:36 | XMS_ITS | Clinical Summary ---
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 V24, 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 V24, [facility] [place] V28) DX:Left leg DVT (HCC) Leg edema DX:Leg edema Osteoarthritis DX:Osteoarthriti s Arthritis, lumbar spine DX:Arthr itis, lumbar spine; COMMENT: recieved cortisone injections, had surgery Ischemic colon ([facility] V24) DX: Ischemic colon (HCC) Acute vascular insufficiency of intestine ([facility] V24) DX:Acute vascular insufficie ncy of intestine ([facility]); COMMENT: s/p surgery COPD (chronic obstructive pu lmonary disease) [facility] V28) DX:COPD (chronic o bstructive pulmonary disease) ([facility]); COMMENT: emphysema Obstructive sleep apnea DX:Obstr uctive sleep apnea; COMMENT: on CPAP at night Depression, major DX:Depression, major Ileostomy in place ([facility] V24, [facility] V28) 09/25/2012 DX:Ileostomy in place ([facility]) Osteoarthritis DX:Osteoarthriti s Type II or unspecified type diabetes mellitus with unspecified complication, not stated as uncontrolled DX:Type II or unspecified ty pe diabetes mellitus with unspecified complication, not stated as uncontrolled CKD (chronic kidney disease) stage 3, GFR 30-59 ml/min ([facility] V24, [facility] V28) 05/03/2013 DX:CKD (chronic kidney disea se) stage 3, GFR 30-59 ml/min ([facility]) COPD (chronic obstructive pu lmonary disease) ([facility] V24, [facility] V28) DX:COPD (chronic o bstructive pulmonary disease) ([facility]) Incisional hernia 02/17/2014 DX:Incisional hernia Hyperlipidemia 06/28/2015 [...] age to complete this topic Care Teams Detective Supervisor Relationship Specialty Start Date End Date Saad Cesar MD PCP - General Internal Medicine 09/16/12
--- OUTSIDE RECORDS SUMMARY | 2025-07-14 13:36 | XMS_ITS | Encounter Summary ---
Author Organization [employer] Address [address] [place] [address] [address] [place] [address] Care Team Providers Care Motor And Chassis Inspector Name Role Phone Marleny Beebe MD Primary Care Provider + Kavin Tan PharmD Unavailable [phone] Reason for Visit * Reason Comments Med Refill Encounter Details Date Type Department Care Team (Late st Contact Info) Description 03/06/2023 Refill [facility] [address] [place] [address] [phone] Marleny Beebe MD [address] [place] [phone] Controlled type 2 diabetes mellitus with hyperglycemia, with long-term current use of insulin ([facility]); Primary hypertension Social History Tobacco Use [...] Description 08/10/2025 9:00 AM EDT Medication Management [facility] [address] [place] [address] [phone] Kavin Tan, PharmD [address] [place] [address] 08/31/2025 10:30 AM EST Office Visit [facility] [address] [place] [address] [phone] Marleny Beebe MD [address] [place] [phone] documented as of this encounter Visit Diagnoses Diagnosis Controlled type 2 diabetes mellitus with hyperglycemia, with long-term current use of insulin (HCC) Primary hypertension Unspecified essential hypertension documented in this encounter Care Teams Motor And Chassis Inspector Relationship Specialty Start Date End Date Marleny Beebe MD [address] [place] [phone] PCP - General Family Medicine 12/25/16 Kavin Tan, NahumD [address] [place] [address] [phone] Pharmacist Pharmacy 07/13/25 documented as of this encounter
--- OUTSIDE RECORDS SUMMARY | 2025-07-14 13:36 | XMS_ITS | Encounter Summary ---
Author Organization [employer] Address [address] [place] [address] [address] [place] [address] Care Team Providers Care Body Trimmer Upholsterer Name Role Phone Marleny Beebe MD Primary Care Provider + Kavin Tan PharmD Unavailable [phone] Reason for Visit * Reason Comments Med Refill Encounter Details Date Type Department Care Team (Late st Contact Info) Description 09/18/2022 Refill [facility] [address] [place] [address] [phone] Marleny Beebe MD [address] [place] [phone] Social History Tobacco Use Types Packs/Day Years [...] Description 08/10/2025 9:00 AM EDT Medication Management [facility] [address] [place] [phone] Kavin Tan, PharmD [address] [place], [place] [phone] 08/31/2025 10:30 AM EST Office Visit [facility] [address] [place] [phone] Marleny Beebe MD [address] [place] [phone] documented as of this encounter Visit Diagnoses Not on filedocumented in this encounter Care Teams Body Trimmer Upholsterer Relationship Specialty Start Date End Date Marleny Beebe MD [address] [place] [phone] PCP - General Family Medicine 12/25/16 Kavin Tan, Ana [address] [place] [phone] Pharmacist Pharmacy 07/13/25 documented as of this encounter
--- OUTSIDE RECORDS SUMMARY | 2025-07-14 13:36 | XMS_ITS | Encounter Summary ---
Author Organization [employer] Address [address] [facility] [address] 7[address] [place] [address] Care Team Providers Care Electrical Assembly Supervisor Name Role Phone Marleny Beebe MD Primary Care Provider + Kavin Tan PharmD Unavailable [phone] Encounter Details Date Type Department Care Team [...] Description 08/10/2025 9:00 AM EDT Medication Management [facility] [address] [place] [address] Kavin Tan, Ana [address] [place] [address] 08/31/2025 10:30 AM EST Office Visit [facility] [address] [place] [address] Marleny Beebe MD [address] [place] [address] documented as of this encounter Visit Diagnoses Not on filedocumented in this encounter Care Teams Electrical Assembly Supervisor Relationship Specialty Start Date End Date Marleny Beebe MD [address] [place] [phone] PCP - General Family Medicine 12/25/16 Kavin Tan, PharmD [address] [place] [address] Pharmacist Pharmacy 07/13/25 documented as of this encounter
--- OUTSIDE RECORDS SUMMARY | 2025-07-14 13:36 | XMS_ITS | Encounter Summary ---
Author Organization [employer] Address 75 [facility] 7t [place] [address] Care Team Providers Care Tire Center Supervisor Name Role Phone Marleny Beebe MD Primary Care Provider + Kavin Tan PharmD Unavailable [phone] Reason for Visit * Reason Comments Med Refill Encounter Details Date Type Department Care Team ([facility] st Contact Info) Description 07/14/2025 Refill [facility] 230 [place], [place] [phone] Marleny Beebe MD 230 [place] [address] Social History Tobacco Use Types Packs/Day Years [...] Description 08/10/2025 9:00 AM EDT Medication Management [facility] [address] [place] [phone] Kavin Tan, PharmD [address] [place] [address] 08/31/2025 10:30 AM EST Office Visit [facility] [address] [place] [phone] Marleny Beebe MD [address] [place] [address] documented as of this encounter Visit Diagnoses Not on filedocumented in this encounter Care Teams T[employer] Center Supervisor Relationship Specialty Start Date End Date Marleny Beebe MD [address] [place] [address] PCP - General Family Medicine 12/25/16 Kavin Tan, PharmD [address] [place] [address] Pharmacist Pharmacy 07/13/25 documented as of this encounter
--- OUTSIDE RECORDS SUMMARY | 2025-07-14 13:36 | XMS_ITS | Encounter Summary ---
Author Organization [employer] Address 75 [facility] 7t [place] [address] Care Team Providers Care Bradley Linebacker Crewmember Name Role Phone Marleny Beebe MD Primary Care Provider + Kavin Tan PharmD Unavailable [phone] Reason for Visit * Reason Onset Date Comments Insurance 07/13/2025 Encounter Details Date Type Department Care Team ([facility] st Contact Info) Description 07/13/2025 Telephone [facility] 230 [place], [place] [phone] Marleny Beebe MD 230 [place], [place] [phone] Insurance Social History Tobacco Use Types Packs/Day [...] insurance was inactive I informed patient to [employer] insurance enrollment , patient came back Liz told me she spoke to marcio and they said he would be all set for today's appointment. documented in this encounter Plan of Treatment Upcoming Encounters Date Type Department Care Team (Late st Contact Info) Description 08/10/2025 9:00 AM EDT Medication Management [facility] [address] [place] [phone] Kavin Tan, PharmD [address] [place] [address] 08/31/2025 10:30 AM EST Office Visit [facility] [address] [place] [address] Marleny Beebe MD [address] [place] [phone] documented as of this encounter Visit Diagnoses Not on filedocumented in this encounter Care Teams Bradley Linebacker Crewmember Relationship Specialty Start Date End Date Marleny Beebe MD [address] [place] [phone] PCP - General Family Medicine 12/25/16 Kavin Tan, NahumD [address] [place] [phone] Pharmacist Pharmacy 07/13/25 documented as of this encounter
--- OUTSIDE RECORDS SUMMARY | 2025-07-14 13:36 | XMS_ITS | Encounter Summary ---
Author Organization [employer] Address 75 [facility] 7t [place] [address] Care Team Providers Care Makeup Sales Consultant Name Role Phone Marleny Beebe MD Primary Care Provider + Kavin Tan PharmD Unavailable [phone] Reason for Visit * Reason Comments Med Refill Encounter Details Date Type Department Care Team (Late st Contact Info) Description 05/30/2023 Refill [facility] 230 [place], [place] [phone] Laurel Jiang MD 230 [place], [place] [phone] Anxiety and depression Social History Tobacco Use [...] Description 08/10/2025 9:00 AM EDT Medication Management [facility] 230 [place] [address] Kavin Tan, PharmD 230 [place] [address] 08/31/2025 10:30 AM EST Office Visit [facility] 230 [place] [address] Marleny Beebe MD 230 [place] [address] documented as of this encounter Visit Diagnoses Diagnosis Anxiety and depression documented in this encounter Care Teams Makeup Sales Consultant Relationship Specialty Start Date End Date Marleny Beebe MD [address] [place] [phone] PCP - General Family Medicine 12/25/16 Kavin Tan, PharmD [address] [place] [phone] Pharmacist Pharmacy 07/13/25 documented as of this encounter
--- OUTSIDE RECORDS SUMMARY | 2025-07-14 13:36 | XMS_ITS | Encounter Summary ---
Author Organization [employer] Address [address] [facility] [address] 7t [place] [address] Care Team Providers Care Veneer Taping Machine Offbearer Name Role Phone Marleny Beebe MD Primary Care Provider + Kavin Tan PharmD Unavailable [phone] Encounter Details Date Type Department Care Team (Late st Contact Info) Description 07/11/2025 Orders Only [facility] 230 [place] [address] Marleny Beebe MD 230 [place], [place] [phone] Benign essential hypertension (Primary Dx) Social History [...] is your housing situation today? I have luisiot leonel 07/07/[address] you [...] Description 08/10/2025 9:00 AM EDT Medication Management [facility] [address] [place] [phone] Kavin Tan, PharmD 230 [place] [address] 08/31/2025 10:30 AM EST Office Visit [facility] [address] [place] [address] Marleny Beebe MD 230 [place] [address] documented as of this encounter Visit Diagnoses Diagnosis Benign essential hypertension- Primary Essential hypertension, benign documented in this encounter Care Teams Veneer Taping Machine Offbearer Relationship Specialty Start Date End Date Marleny Beeeb MD 230 [place] [address] PCP - General Family Medicine 12/25/16 Kavin Tan, NahumD 230 [place] [address] Pharmacist Pharmacy 07/13/25 documented as of this encounter
--- OUTSIDE RECORDS SUMMARY | 2025-07-14 13:36 | XMS_ITS | Encounter Summary ---
Author Organization [employer] Address [address] [facility] 7t [place] [address] Care Team Providers Care Technical Implementation Lead Name Role Phone Marleny Beebe MD Primary Care Provider + Kavin Tan PharmD Unavailable [phone] Encounter Details Date Type Department Care Team (Late st Contact Info) Description 03/06/[address] [facility] [address] [place], [place] [phone] Dejah Stewart LPN Social History Tobacco Use [...] Description 08/10/2025 9:00 AM EDT Medication Management [address] [address] Kavin Tan, PharmD 230 [place] [address] 08/31/2025 10:30 AM EST Office Visit [address] [address] Marleny Beebe MD [address] [place] [phone] documented as of this encounter Visit Diagnoses Not on filedocumented in this encounter Care Teams Technical Implementation Lead Relationship Specialty Start Date End Date Marleny Beebe MD 230 [place], [place] [phone] PCP - General Family Medicine 12/25/16 Kavin Tan, NahumD 230 [place], [place] [phone] Pharmacist Pharmacy 07/13/25 documented as of this encounter
--- OUTSIDE RECORDS SUMMARY | 2025-07-14 13:36 | XMS_ITS | Encounter Summary ---
Author Organization [employer] Address 75 [facility] 7t [place] [address] Care Team Providers Care Liquor Runner Name Role Phone Marleny Beebe MD Primary Care Provider + Kavin Tan PharmD Unavailable [phone] Reason for Visit * Reason Onset Date Comments DME 07/14/2025 Encounter Details Date Type Department Care Team ([facility] st Contact Info) Description 07/14/2025 Telephone [facility] 230 [place], [place] [phone] Marleny Beebe MD 230 [place], [place] [phone] DME Social History Tobacco Use Types Packs/Day Years [...] encounter Miscellaneous Notes * Telephone Encounter - Kimberlee Smart MA - 07/14/2025 9:47 AM EDT DMEs generated, awaiting pcp's signature. * Telephone Encounter - Kimberlee Smart MA - 07/14/2025 9:47 AM EDT ----- Message from Marleny Beebe MD sent at 07/09/2025 9:11 AM EDT ----- Patient needs a prescription for diabetic shoes and inserts, has DM neuropathy and a foot deformity. Please write a prescription for a quad cane and a wheeled walker with a seat documented in this encounter Plan of Treatment Upcoming Encounters Date Type Department Care Team (Late st Contact Info) Description 08/10/2025 9:00 AM EDT Medication Management [facility] 230 [place] [address] Kavin Tan, PharmD 230 [place] [address] 08/31/2025 10:30 AM EST Office Visit [facility] [address] [place] [address] [phone] Marleny Beebe MD [address] [place] [phone] documented as of this encounter Visit Diagnoses Not on filedocumented in this encounter Care Teams Liquor Runner Relationship Specialty Start Date End Date Marleny Beebe MD [address] [place] [address] [phone] PCP - General Family Medicine 12/25/16 Kavin Tan, NahumD [address] [place] [phone] Pharmacist Pharmacy 07/13/25 documented as of this encounter
--- OUTSIDE RECORDS SUMMARY | 2025-07-14 13:36 | XMS_ITS | Encounter Summary ---
Author Organization [employer] Address 75 [facility] 7t [place] [address] Care Team Providers Care Acid Bath Mixer Name Role Phone Marleny Beebe MD Primary Care Provider + Kavin Tan PharmD Unavailable [phone] Encounter Details Date Type Department Care Team (Late st Contact Info) Description 03/26/2023 Orders Only [facility] [address] [place], [place] [phone] Dejah Stewart LPN Social History Tobacco Use [...] Description 08/10/2025 9:00 AM EDT Medication Management [address] [address] Kavin Tan, PharmD 230 [place] [address] 08/31/2025 10:30 AM EST Office Visit [address] [address] Marleny Beebe MD [address] [place] [address] documented as of this encounter Visit Diagnoses Not on filedocumented in this encounter Care Teams Acid Bath Mixer Relationship Specialty Start Date End Date Marleny Beebe MD 230 [place], [place] [phone] PCP - General Family Medicine 12/25/16 Kavin Tan, NahumD 230 [place], [place] [phone] Pharmacist Pharmacy 07/13/25 documented as of this encounter
--- OUTSIDE RECORDS SUMMARY | 2025-07-14 13:36 | XMS_ITS | Encounter Summary ---
Author Organization [employer] Address [address] [facility] [address] 7t [place] [address] Care Team Providers Care Travel Accommodations Rater Name Role Phone Marleny Beebe MD Primary Care Provider + Encounter Details Date Type Department Care Team ([facility] st Contact Info) Description 07/11/2025 Telephone [facility] 230 [place], [place] [phone] Marleny Beebe MD 230 [place], [place] [phone] Social History Tobacco Use Types Packs/Day Years [...] 1:48 PM EDT Noted. RN spoke to [facility] pharmacy in regards to medication reconciliation. [facility] pharmacy will completemedication reconciliation on 07/13/25 at 9am, patient was informed and agreed to appointment date and time. RN has cancelled RN [place] appointment for 07/14/25. RN has referred patient to [facility] ([facility]) for [facility] for medication management and PT for home [...] Description 08/10/2025 9:00 AM EDT Medication Management [address] [address] Kavin Tan, PharmD [address] [place] [address] 08/31/2025 10:30 AM EST Office Visit [address] [phone] Marleny Beebe MD [address] [place] [address] [phone] documented as of this encounter Visit Diagnoses Not on filedocumented in this encounter Care Teams Travel Accommodations Rater Relationship Specialty Start Date End Date Marleny Beebe MD [address] [place] [address] [phone] PCP - General Family Medicine 12/25/16 documented as of this encounter
== END 2025-07-13 11:52 | disposition home or self-care (01) ==
LOC: HO.HOSX 11:51
PROVIDERS: Visit Provider Orthopaedic Surgery
DX: M25.512 Pain in left shoulder (principal); Z79.899 Other long term (current) drug therapy
CPT/HCPCS: 73030; 99202

== ENCOUNTER 2025-07-13 12:30 | Outpatient (AMB) | payer MEDICARE, SELFPAY ==
--- NOTE | 2025-07-13 12:48 | A.OFFVIS_ITS ---
Vital Signs 07/13/25 12:52 Height 5 ft 7 in Weight 220 lb BMI 34.5 Intake Visit Reasons: [employer]-left shoulder pain Intake Note: Marin is a 74 year old male right hand dominant who presents with complaints of progressively worsening left shoulder pain and stiffness. The patient states that his symptoms have gotten worse over the last 10 years. He states that he has had cortisone injections which gave him minimal relief. He has also tried physical therapy exercises which aggravated his pain. He has tried Tylenol and anti-inflammatory medicines which gave him minimal relief. Allergies No Known Allergies Allergy (Verified 07/13/25 12:53) Medication List - Last Reconciled 07/13/25 by Jalil Rooney MD acetaminophen 500 mg PO Q6H PRN albuterol sulfate 90 mcg/actuation (Ventolin HFA) 2 puffs inhalation Q4-6H PRN allopurinol 100 mg PO BID amlodipine 10 mg PO QPM aspirin 81 mg PO QPM atorvastatin 10 mg PO QPM blood sugar diagnostic (RateSetteruch Ultra Test strips) As directed cephalexin 500 mg PO BID citalopram 20 mg PO QAM doxycycline monohydrate 100 mg PO BID ertapenem 1 g IM DAILY fluticasone propionate 50 mcg/actuation 1 spray intranasal DAILY PRN fluticasone propionate 220 mcg/actuation (Flovent HFA) 1 puff inhalation BID PRN gabapentin 600 mg PO BID insulin detemir U-100 (Levemir FlexPen) 10 units subcut BEDTIME insulin detemir U-100 (Levemir FlexPen) 5 units subcut QAM metformin 1,000 mg PO BID montelukast 10 mg PO QPM PFSH Medical History HLD (hyperlipidemia) Gout Arthritis Diabetes HTN (hypertension) Surgical History History of bowel resection Hx of colonoscopy Social History Alcohol intake: never Patient Tobacco Use Status: Former Tobacco user service: No Physical Exam Vital Signs: BMI result Body Mass Index 34.5 Const Other: Well-nourished well-developed very friendly male awake alert and oriented x3 in no acute distress Extrem Other: Left shoulder examination shows limited range of motion, crepitus with range of motion, pain with range of motion Results Reviewed Results Reviewed: X-rays of the patient's left shoulder show end-stage glenohumeral joint degenerative joint disease as well as a high-riding humeral head consistent with chronic rotator cuff tear arthropathy Assessment & Plan Assessment & Plan (1) Left shoulder pain: Code(s): M25.512 - Pain in left shoulder Category: Medical Plan Mr. Dominick Loco presents with progressively worsening left shoulder pain and stiffness due to rotator cuff tear arthropathy. I had a lengthy discussion with the patient regarding the treatment options. At this point he has failed continued non operative treatments. He is interested in proceeding with left reverse total shoulder replacement surgery. Thus, I will have him evaluated by my partner, Dr. Goodwin. He will continue with his range of motion exercises in the meantime. Feel free to call me at any time should questions regarding his orthopedic management arise. Thank you very much for asking me to see this very friendly gentleman. I spent 22 minutes in reviewing the patient's records and imaging studies, seeing the patient and documenting in the medical record. Orders: Orders XR shoulder LT min 2V Today M25.512 - Pain in left shoulder Coding Level of Care Code New Pt Level 3 (78072) Complex EM visit Add On G2211 Diagnoses Left shoulder pain M25.512
[2025-07-13 12:52] VITALS: BMI 34.5
--- OUTSIDE RECORDS SUMMARY | 2025-07-13 13:51 | XMS_ITS | Encounter Summary ---
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 Mix Truck Driver Name Role Phone Marleny Beebe MD Primary Care Provider + Reason for Visit * Reason Comments Care Coordination CHW outreach for SDO H housing search-LVM Encounter Details Date Type Department Care Team (Latest Contact Info) Description 07/08/2025 Patient Outreach [facility] [address] [place] [address] Marleny Beebe MD [address] [place] [address] Care Coordination (CHW outreach for SDOH housing search-LVM ) Social History Tobacco Use Types Packs/Day Years Used Date Smoking Tobacco: Former Cigarettes Passive Smoke Exposure: Past Smokeless Tobacco: Never Alcohol Use Standard Drinks/Week Comments Never 0 (1 standard drink = 0.6 oz pur e alcohol) PHQ-2 Answer Date Recorded Patient Health Questionnaire-2 Score 0 05/23/2023 Housing Stability Answer Date Recorded What is your housing situation today? I have luisitokaila castaneda 07/07/[address] you li ve. Do you have problems with any of the following? None of the above 07/07/2025 Food Insecurity Answer Date Recorded Within the past 12 months, y ou worried that your food would run out before you got money to buy more: Sometimes True 2024 Within the past 12 months,th e food you bought just didn't last and you didn't have enough money to get more: Sometimes True 07/07/2025 Transportation Answer Date Recorded In the past 12 months, has l ack of transportation kept you from medical appts, meetings, work or from getting things needed for daily living? Yes, it has kept me from non-medical meetings, work, or getting things that I need 07/07/2025 Utilities Answer Date Recorded In the past 12 months, has t he electric, gas, oil or water company threatened to shut off services in your home? No 07/07/2025 Depression Answer Date Recorded Patient Health Questionnaire-2 Score 0 05/23/2023 Internet Access Answer Date Recorded Internet Access Q1 Yes 07/07/2025 Internet Access Q2 Not on file 07/07/2025 Sex and Gender Information Value Date Recorded Sex Assigned at Male 08/12/2022 10:24 AM EDT Legal Sex Male 10:24 AM EDT Gender Identity Male 08/12/2022 10:24 AM EDT Sexual Orientation Choose not to disclose 2021 10:24 AM EDT documented as of this encounter Progress Notes * Bob Mccarty - 07/08/2025 9:41 AM EDT CHW Bob Mccarty, placed outbound call to patient for assistance with SDOH as a referral was placed by the provider. Patient had screened positive for the following SDOH housing insecurities. Patient did not answer at this time. Patient's name and were not confirmed. CHW left detailed message and provided contact information requesting return call for more assistance. documented in this encounter Plan of Treatment Upcoming Encounters Date Type Department Care Team ([facility] st Contact Info) Description 08/10/2025 9:00 AM EDT Medication Management [facility] [address] [place] [id number] Kavin Tan, NahumD [address] [place] [phone] 08/31/2025 10:30 AM EST Office Visit [facility] [address] [place] [phone] Marleny Beebe MD [address] [place] [phone] documented as of this encounter Visit Diagnoses Not on filedocumented in this encounter Care Teams Ready Mix Truck Driver Relationship Specialty Start Date End Date Marleny Beebe MD [address] [place] [phone] PCP - General Family Medicine 12/25/16 documented as of this encounter
--- OUTSIDE RECORDS SUMMARY | 2025-07-13 13:51 | XMS_ITS | Encounter Summary ---
Author Organization [employer] Address [address] [facility] [address] [place] [address] Care Team Providers Care Technologist Infectious Disease Name Role Phone Marleny Beebe MD Primary Care Provider + Kavin Tan PharmD Unavailable [phone] Encounter Details Date Type Department Care Team (Latest Contact Info) Description 07/13/2025 Travel Social History Tobacco Use Types Packs/Day Years Used Date Smoking Tobacco: Former Cigarettes Passive Smoke Exposure: Past Smokeless Tobacco: Never Alcohol Use Standard Drinks/Week Comments Never 0 (1 standard drink = 0.6 oz pur e alcohol) PHQ-2 Answer Date Recorded Patient Health Questionnaire-2 Score 0 05/23/2023 Housing Stability Answer Date Recorded What is your housing situation today? I have luisito leonel 07/07/[address] you li [...] AM EDT documented as of this encounter Plan of Treatment Upcoming Encounters Date Type Department Care Team (Late st Contact Info) Description 08/10/2025 9:00 AM EDT Medication Management [facility] [address] [place] [phone] Kavin Tan, Ana [address] [place] [phone] 08/31/2025 10:30 AM EST Office Visit [facility] [address] [place] [phone] Marleny Beebe MD [address] [place] [phone] documented as of this encounter Visit Diagnoses Not on filedocumented in this encounter Care Teams Technologist Infectious Disease Relationship Specialty Start Date End Date Marleny Beebe MD [address] [place] [phone] PCP - General Family Medicine 12/25/16 Kavin Tan, PharmD [address] [place] [phone] Pharmacist Pharmacy 07/13/25 documented as of this encounter
--- OUTSIDE RECORDS SUMMARY | 2025-07-13 13:51 | XMS_ITS | Clinical Summary ---
Author Organization [employer] Address [address] [facility] [address] [place] [address] Care Team Providers Care Central Supply Clerk Name Role Phone Marleny Beebe MD Primary Care Provider + Kavin Tan PharmD Unavailable [phone] Allergies No known active allergies Medications * This document contains information received from the source organization and may not represent a complete record from that organization. albuterol 108 (90 Base) MCG/ACT inhalerIndicatio ns:COPD with acute exacerbation (CMS/HCC) ([facility]) Inhale 2 puffs every 6 (six) hours if needed for wheezing. 18 g 023 Active fluticasone (Flonase) 50 MCG/ACT nasal sprayIndications :RSV (respiratory syncytial virus infection) Administer 1 spray into each nostril in the morning. 16 g 2 023 Active allopurinol (Zyloprim) 100 MG tablet TAKE 1 TABLET BY MOUTH TWICE DAILY IN THE MORNING AND IN THE EVENING 60 tablet 5 024 Active Arnuity Ellipta 200 MCG/ACT inhalerIndicatio ns:Mild intermittent asthma without complication INHALE 1 PUFF BY MOUTH EVERY DAY AT THE SAME TIME IN THE MORNING 30 each 11 025 Active montelukast (Singulair) 10 MG tabletIndication s:Mild intermittent asthma without complication TAKE 1 TABLET BY MOUTH EVERY EVENING 30 tablet 3 025 Active atorvastatin (Lipitor) 10 MG tablet Take 1 tablet (10 mg) by mouth at bedtime. 90 tablet 2 025 Active metFORMIN (Glucophage) 1000 MG tabletIndication s:Controlled type 2 diabetes mellitus with hyperglycemia, with long-term current use of insulin (HCC) TAKE 1 TABLET BY MOUTH TWICE DAILY IN THE MORNING AND IN THE EVENING WITH MEALS 60 tablet Active amLODIPine (Norvasc) 10 MG tabletIndication s:Primary hypertension Take 1 tablet (10 mg) by mouth at bedtime. 30 tablet Active aspirin (Aspirin Low Dose) 81 MG EC tabletIndication s:At high risk for cardiovascular disease Take 1 tablet (81 mg) by mouth at bedtime. 90 tablet Active chlorthalidone (Hygroton) 25 MG tablet Take 1 tablet (25 mg) by mouth in the morning. 30 tablet 3 Active citalopram (CeleXA) 20 MG tabletIndication s:Anxiety and depression Take 1 tablet (20 mg) by mouth in the morning. 90 tablet Active lisinopril 10 MG tablet Take 1 tablet (10 mg) by mouth Once per day. 30 tablet 025 2025 Active insulin degludec (Tresiba FlexTouch) 100 UNIT/ML injectionIndicat ions:Type 2 diabetes mellitus with hyperglycemia, with long-term current use of insulin ([facility]) INJECT 20 UNITS SUBCUTANEOUSLY EVERY EVENING 15 mL Active Blood Glucose Monitoring Suppl (ONE TOUCH ULTRA 2) w/Device kitIndications:T ype 2 diabetes mellitus with hyperglycemia, with long-term current use of insulin ([facility]) 1 each with breakfast and with evening meal. 1 kit Active insulin pen needle (Pentips) 32G x 4 mm misc Use as instructed 100 each Active Lancets (OneTouch Delica Plus [id number]) misc TEST BLOOD SUGAR THREE TIMES DAILY 100 each Active glucose blood (OneTouch Ultra Test) test strip TEST BLOOD SUGAR THREE TIMES DAILY 100 strip Active Alcohol Swabs (Alcohol Pads) 70 % pads Use as directed on skin 100 each Active acetaminophen (Tylenol Extra Strength) 500 MG tablet Take 1 tablet (500 mg) by mouth every 8 (eight) hours if needed for moderate pain. 90 tablet 025 2024 Active clotrimazole (Lotrimin) 1 % cream Apply topically 2 times daily for 28 days. 30 g 025 2024 Active gabapentin (Neurontin) 600 MG tabletIndication s:Diabetic polyneuropathy associated with type 2 diabetes mellitus ([facility]) TAKE 1 TABLET BY MOUTH TWICE DAILY IN THE MORNING AND IN THE EVENING 60 tablet 1 Active lidocaine (Lidoderm) 5 % patchIndications :Complete tear of rotator cuff, unspecified laterality, unspecified whether traumatic Apply 1 patch topically Once per day. Remove & discard patch within 12 hours or as directed by . 30 patch Active Blood Pressure Monitoring kitIndications:B enign essential hypertension Use to measure BP daily 1 kit Active Blood Glucose Monitoring Suppl (ONE TOUCH ULTRA 2) w/Device kitIndications:T ype 2 diabetes mellitus with diabetic peripheral angiopathy without gangrene, with long-term current use of insulin ([facility]) 1 each with breakfast and with evening meal. 1 kit 022 2024 Discontinued(R eorder (will not trigger notification to Pharmacy)) ertapenem (INVanz) 1 g injection Infuse 1 g into a venous catheter Once daily. 024 2024 Discontinued(T herapy completed) insulin degludec (Tresiba FlexTouch) 100 UNIT/ML injectionIndicat ions:Type 2 diabetes mellitus with hyperglycemia, with long-term current use of insulin ([facility]) INJECT 25 UNITS SUBCUTANEOUSLY EVERY EVENING 15 mL 11 024 2024 Discontinued Pentips 32G X 4 MM misc USE DIRECTED FOUR TIMES DAILY 100 each 5 024 2024 Discontinued(R eorder (will not trigger notification to Pharmacy)) OneTouch Ultra Test test strip TEST BLOOD SUGAR THREE TIMES DAILY 100 strip 11 025 2024 Discontinued(R eorder (will not trigger notification to Pharmacy)) Lancets (OneTouch Delica Plus [id number]) misc TEST BLOOD SUGAR THREE TIMES DAILY 100 each 11 025 2024 Discontinued(R eorder (will not trigger notification to Pharmacy)) gabapentin (Neurontin) 600 MG tabletIndication s:Diabetic polyneuropathy associated with type 2 diabetes mellitus ([facility]) TAKE 1 TABLET BY MOUTH TWICE DAILY IN THE MORNING AND IN THE EVENING 60 tablet 1 025 2024 Discontinued(R eorder (will not trigger notification to Pharmacy)) lidocaine (Lidoderm) 5 % patchIndications :Complete tear of rotator cuff, unspecified laterality, unspecified whether traumatic Apply 1 patch topically Once per day. Remove & discard patch within 12 hours or as directed by MD. 30 patch 025 2024 Discontinued(R eorder (will not trigger notification to Pharmacy)) Active Problems Problem Noted Date Diagnosed Date Cognitive dysfunction 07/09/2025 Assessment & Plan (07/09/2025 9:09 AM EDT): It could be due to persistently high blood sugars over the past few months, uncontrolled diabetes and may be exacerbated depression after of his . It is very likely that he also has microvascular [facility] changes Will try to optimize chronic medical problems, I will refer him to behavioral health to address depression Will do reevaluation once DM is better controlled most medical conditions improve. He needs assistance with ADLs to prevent accidents Diabetic polyneuropathy asso ciated with type 2 diabetes mellitus 07/09/2025 Assessment & Plan (07/09/2025 9:11 AM EDT): Restarted on gabapentin Rx for diabetic shoes Chronic pain of left knee 05/27/2025 Acute hematogenous osteomyelitis of right foot ( CMS/HCC) 12/30/2023 Assessment & Plan (12/30/2023 11:35 AM EDT): - On right second toe, improving. - Continue Ertapenem via picc line until 01/26/24 - [facility] to monitor weekly and check CBC in 2 weeks. -Refer to ID/ Dr. Johnson. - Check CMP and CBC today. -Has appointment with a new Sales Office Manager on 12/31 at 10:30 am, information given to patient today. - Recommended tight control of diabetes, regular foot check and use of diabetic shoes. PAD (peripheral artery disease) 12/30/2023 Assessment & Plan (05/30/2025 12:07 PM EDT): Resume meds as written below Assessment & Plan (12/30/2023 11:04 AM EDT): Pt had arterial Dopplex on the RLE, showing mild atherosclerotic disease, superficial femoral artery stenosis. Will refer him to Vascular Surgery. Nasal congestion 09/18/2023 Benign paroxysmal positional vertigo 07/24/2023 Assessment & Plan (07/09/2025 8:43 AM EDT): Advised to check fingersticks and BP as needed dizziness Advised to change position slowly, increase water intake Will consider meclizine as needed once above conditions are ruled out Assessment & Plan (07/24/2023 11:25 AM EDT): Check BP prn dizziness Counseled to change position slowly Counseled to increase water intake Paronychia of second toe of right foot Assessment & Plan (08/12/2023 4:26 PM EDT): Resolved w/ antibiotics, unclear if he has residual soft tissue abscess or bone changes Order X-Ray Need margarette with director of cardiology, referral had been sent previously Get X-ray and Fu with me Assessment & Plan (07/24/2023 11:27 AM EDT): Start Duricef x 1 wk and will fu with him then Counseled about soaking feet in warm water with Epson salt Avoid poking lesions Fu 1 wk Rudyard of toe 07/24/2023 Assessment & Plan (09/18/2023 11:20 AM EST): Right second toe Pt need to reschedule appointment w/ director of cardiology Assessment & Plan (07/24/2023 11:30 AM EDT): R toe Refer to director of cardiology Will need custom made shoes Vitamin D deficiency 06/02/2023 Assessment & Plan (07/24/2023 11:06 AM EDT): Will start Vit-D supplementations x 6 month Encouraged outdoor exercise for sun exposure for 15 min /day Assessment & Plan (06/06/2023 8:54 AM EDT): Start Vit D supplementation x 6m Counseled re outdoor exercise COPD with acute exacerbation (CMS/HCC) 3 Assessment & Plan (06/06/2023 8:53 AM EDT): Improving but still with significant use of albuterol Add medrol pack x 11w Continue Albuterol inh prn FU in 1m Assessment & Plan (05/28/2023 2:48 PM EDT): likely COPD exacerbation in light of productive cough/color of sputum If symptoms persist or worse seek medical attention I advise to rest and drink plenty of fluids records of recent ED visit will be obtained patient will be contacted for status check by nurse and he will have an ED f/u appointment COPD (chronic obstructive pulmonary disease) 08/2023 Overview (05/23/2023): emphysema Arthritis, lumbar spine 05/23/2023 Acute vascular insufficiency of intestine 2022 Overview (05/23/2023): s/p surgery Encounter for preventive health examination 05/13 Assessment & Plan (05/23/2023 10:33 AM EDT): Discussed with patient re increase fresh fruit and vegetable intake. Counseled re moderate exercise as tolerated, up to 20min/d Patient feels safe at home. Eye exam overdue will refer to eye clinic CRC screen never followed up with appointment, will send new referral Lipids/FBS TBO Vaccinations Td will be given today, advised to get Covid booster in our walk in clinic. I will order IZ titers Dental visit counseled to make an appointment in our dental clinic Other specified arthritis, left shoulder 023 Assessment & Plan (05/23/2023 11:48 AM EDT): most likely OA, seems to have RC tendonosis refer to PT take Tylenol PRN Order x-rays and fu with me in 2 months Weight loss 05/23/2023 Assessment & Plan (05/23/2023 11:47 AM EDT): apparently after covid, r/o malignancy pt recent UTOX within the past year showed pt using cocaine, he denies at this time will continue close fu and due malignancy workup refer to colonoscopy we discussed about prostate examination Tendinosis of rotator cuff 05/23/2023 Assessment & Plan (07/24/2023 11:25 AM EDT): Failed PT and steroid injection Refer to orthopedics Assessment & Plan (06/06/2023 8:56 AM EDT): Has underlying OA, Xray was reviewed. He was referred to PT, will refer to Joint injection clinic. Recommended acupuncture FU in 3m. Encounter for screening colonoscopy 05/23/2023 Full thickness rotator cuff tear 05/22/2023 Assessment & Plan (07/09/2025 8:53 AM EDT): On left side, will restart gabapentin and Tylenol. He was referred to orthopedics last month. Assessment & Plan (05/30/2025 12:09 PM EDT): Limited ROM, this is primary complaint in presentation today, pain in left shoulder, noted benefit from gabapentin Right ventricular dilation 05/22/2023 Serrated polyp of colon 03/12/2019 Enlarged RV (right ventricle) 02/15/2019 Dyspnea on exertion 12/17/2018 Deformity of foot 09/14/2018 Cellulitis of trunk 08/07/2018 Chronic low back pain 08/07/2018 Assessment & Plan (07/09/2025 8:55 AM EDT): Patient has chronic lumbar radiculopathy, disc disease of the lumbar spine status post lumbar discectomy in . Restart gabapentin and Tylenol, follow-up with PT (referred last month). Needs assistance for ADLs due to significant imitation for ambulation, bending over and lifting heavy objects which limits ability to do house chores, grocery shopping. Ambulation with a cane (he wants a quad cane), and a wheeled walker. Will order an evaluation of home safety and Rx DMEs as needed to prevent falls Obstructive sleep apnea syndrome 07/08/2018 Overview (05/23/2023): Not using CPAP Assessment & Plan (07/09/2025 8:59 AM EDT): He does not tolerate CPAP for long time. I will consider Tirzepatide due to associated diabetes. Follow-up at next visit Assessment & Plan (07/24/2023 11:23 AM EDT): KAMALA does not tolerate CPAP mask, probably related to claustrophobia Refer to sleep medicine Assessment & Plan (05/23/2023 11:50 AM EDT): Not using CPAP FU at next visit Tinea pedis 07/08/2018 Assessment & Plan (07/09/2025 8:58 AM EDT): Fifth toe/interdigital space. Use clotrimazole cream x 1 week Keep area clean and dry, instructed about daily foot examination Acute deep venous thrombosis of axillary vein ([facility] MS/HCC) 12/26/2017 Deep venous thrombosis of lower extremity 2017 Acute pulmonary embolism (CMS/HCC) 11/03/2017 Open fracture of tibial plateau 11/03/2017 Anxiety 05/27/2017 Biceps tendinitis 01/22/2017 Benign essential hypertension 01/01/2017 Assessment & Plan (07/09/2025 8:42 AM EDT): Is controlled today, unclear if he is taking medication regularly, he was prescribed amlodipine, chlorthalidone and lisinopril on 05/27 but is unclear if he is taking them regularly, he said he is out of medications. I will Rx lisinopril 10 mg (unclear if he is taking 40 mg or not as Rx on 05/27/2025) and have him bring all the medications bottles next week and BP log to do med reconciliation with RN and adjust medications as needed. Follow-up with me in 6 to 8 weeks Assessment & Plan (05/30/2025 12:07 PM EDT): Resume medications as previously tolerated, rx sent, To meet with pcp later this month, may initiate two tablets at a time given plan to reinstate multiple meds Assessment & Plan (12/30/2023 11:30 AM EDT): Controlled. Compliant w/meds Did not follow direction s/p hospital discharge, will call pharmacy if changes need to be done after BMP is checked. Continue lisinopril + amlodipine + chlorthalidone for now Counseled re low salt diet/increase moderate physical activity. Check home BP BIW and prn CP/COTTO/IBANEZ Non smoking patient. Assessment & Plan (07/24/2023 11:22 AM EDT): He's at goal, checks his own BP Cont lisinopril + amlodipine + chlorthalidone Assessment & Plan (05/23/2023 11:50 AM EDT): BP is at goal. Continue chlorthalidone and lisinopril Order labs Counseled re low salt diet/increase moderate physical activity. Check home BP BIW and prn CP/COTTO/IBANEZ Non smoking patient. Primary gout 01/01/2017 Mild intermittent asthma 01/01/2017 Arthritis 01/01/2017 Recurrent major depressive episodes 01/01/2017 Assessment & Plan (07/09/2025 9:16 AM EDT): Patient was not taking Celexa regularly, restarted few weeks ago. May continue Celexa same dose and will refer to behavioral health. Assessment & Plan (05/30/2025 12:08 PM EDT): Pt notes improvement in mood with celexa has not been taking, restart today monitor for side effects Type 2 diabetes mellitus wit h hyperglycemia, with long-term current use of insulin 02/21/2016 Assessment & Plan (07/09/2025 8:51 AM EDT): Uncontrolled, noncompliant with medications until recently. Patient will continue Humalog (3 times daily AC meals) and Tresiba (20U?) as prescribed and will bring glucometer next week for RN visit May need assistance for med administration if unable to do it, otherwise he can be just reminded if he is able to do by himself, will check technique with RN at next week's visit. I will refer to ophthalmology clinic Foot examination up-to-date today, he has diabetic neuropathy, I will restart gabapentin which is also used for lumbar radiculopathy. I advised him to get COVID and influenza vaccination at his convenience at a local pharmacy Assessment & Plan (05/30/2025 12:08 PM EDT): Resume medications, Care coordinated with pharmacy Assessment & Plan (12/30/2023 11:32 AM EDT): Controlled. A1c is at goal. Continue on Metformin 1000 mg, Levemir 5 Units in the morning and 20 Units at night Counseled re more frequent low calorie/carb meals. Check fgstk once daily Encouraged physical activity as tolerated. FU in 3 months. Assessment & Plan (09/18/2023 3:12 PM EST): Still uncontrolled Increase Levemir to 12 units in the moring and continue 50 units at night No other medicaiton changes FU 6 wks Assessment & Plan (07/24/2023 11:24 AM EDT): Uncontrolled today, pt not compliant with meals and misses Rx doses Reminded him to use levemir 15 units /daily + PO Rx Fu in 1 wk with glucometer Assessment & Plan (05/23/2023 11:49 AM EDT): A1C is at goal, pt has lost significant amount of weight continue metformin BID + levemir 50 units Counseled re more frequent low calorie/carb meals. Encouraged physical activity as tolerated. Hyperlipidemia 06/28/2015 Resolved Problems Problem Noted Date Diagnosed Date Resolved Date RSV (respiratory syncytial virus infection) 09/18/2023 07/07/2025 Assessment & Plan (09/18/2023 11:24 AM EST): Counseled regarding wearing a mask, avoid confrontations, rather use albuterol TID x 5 days Use Tylenol, Flonase and NS Caution regarding airdroplets contact Stage 3 chronic kidney disease ([facility]/HCC) 05/22/2023 06/02/2023 Foot pain 07/08/2018 07/09/2025 Closed fracture of foot 11/03/201706/14 CKD (chronic kidney disease) stage 3, GFR 30-59 ml/min ([facility]/HCC) 05/03/2013 06/02/2023 Encounters * This document contains information received from the source organization and may not represent a complete record from that organization. Date Type Department Care Team Description 07/13/2025 Telephone [facility] [address] [place] [id number] Marleny Beebe MD Insurance 07/13/2025 Travel 07/11/[address] [address] Marleny Beebe MD 07/11/2025 Orders Only [facility] [address] [place] [phone] Marleny Beebe MD Benign essential hypertension (Primary Dx) 07/08/2025 Patient Outreach [address] [address] Marleny Beebe MD Care Coordination ([facility] outreach for [facility] housing search-[facility] ) 07/07/2025 3:45 PM EDT Office Visit [address] [address] Marleny Beebe MD Type 2 diabetes mellitus with hyperglycemia, with long-term current use of insulin ([facility]) (Primary Dx); Cognitive dysfunction; Benign essential hypertension; Recurrent major depressive episodes (CMS/HCC); Benign paroxysmal positional vertigo, unspecified laterality; Chronic midline low back pain, unspecified whether sciatica present; Obstructive sleep apnea syndrome; Tinea pedis of right foot; Diabetic polyneuropathy associated with type 2 diabetes mellitus (CMS/HCC); Complete tear of rotator cuff, unspecified laterality, unspecified whether traumatic 07/07/2025 Travel 07/06/[address] [address] Marleny Beebe MD chart Prep 07/05/[address] [address] Marleny Beebe MD Appt change 06/29/2025 Patient Outreach [address] [address] Marleny Beebe MD Pre-visit Planning ((Unable to reach for PVP screening, LVM) to be completed in office ) 06/14/2025 3:20 PM EDT [facility] Visit [facility] [address] [address] Jasen Lamar MD Type 2 diabetes mellitus with hyperglycemia, with long-term current use of insulin ([facility]) (Primary Dx); Elevated glucose 06/14/2025 Travel 06/14/[address] [address] Marleny Beebe MD telephone call 06/09/[address] [address] Marleny Beebe MD telephone call 06/03/2025 2:40 PM EDT Office Visit [address] [address] Jasen Lamar MD Acute cough (Primary Dx); Wheezing; Chronic obstructive pulmonary disease, unspecified COPD type (CMS/HCC); Syncope and collapse 06/03/2025 Travel 06/02/2025 Patient Outreach [facility] [address] [place], [place] [phone] Marleny Beebe MD Transition Of Care (Tcm) (HDF unscheduled.) 06/02/[address] [address] Marleny Beebe MD Hospital Follow-up 05/27/2025 3:20 PM EDT Office Visit [facility] [address] [address] Judy Meraz NP Complete tear of rotator cuff, unspecified laterality, unspecified whether traumatic (Primary Dx); Chronic pain of left knee; Type 2 diabetes mellitus with hyperglycemia, with long-term current use of insulin ([facility]); Benign essential hypertension; Moderate mixed hyperlipidemia not requiring statin therapy; PAD (peripheral artery disease) ([facility]); Recurrent major depressive episodes ([facility]); Diabetic polyneuropathy associated with type 2 diabetes mellitus ([facility]); Controlled type 2 diabetes mellitus with hyperglycemia, with long-term current use of insulin ([facility]); Primary hypertension; At high risk for cardiovascular disease; Anxiety and depression; Vertigo 05/27/2025 Travel 05/09/2025 Telephone [facility] [address] [place] [phone] Marleny Beebe MD from Last 3 Months Immunizations Immunization Administration Dates Next Due Influenza High-dose Quadriva lent Preservative Free 07/24/2023,07/06/2021,09/13/2020 Influenza injectable quadriv alent IIV4 with preservative 07/08/2017 Influenza injectable quadriv alent preservative free 07/13/2019 Influenza, High Dose Seasona l, Preservative Free 07/08/2018 Influenza, IIV3, injectable 09/13/2016,0 06/28/2015,08/23/2014,07/07,09/25/2012,07/15/2012 Moderna Covid-19 Vaccine 12+ 11/02/2021,02/09/20 21,01/11/2021 Pfizer Covid-19 Vaccine 12+ 07/24/2023 Pneumococcal Conjugate PCV 20 12/18/2022 Pneumococcal Polysaccharide PPSV23 02/17/2014, Tdap 01/19/2017,09/25/2012 Zoster, Recombinant 05/28/2021,03/26/2021 Social History Tobacco Use Types Packs/Day Years Used Date Smoking Tobacco: Former Cigarettes Passive Smoke Exposure: Past Smokeless Tobacco: Never Tobacco Cessation:Counseling Given: Not Answered Alcohol Use Standard Drinks/Week Comments Never 0 (1 standard drink = 0.6 oz pur e alcohol) PHQ-2 Answer Date Recorded Patient Health Questionnaire-2 Score 0 05/23/2023 Housing Stability Answer Date Recorded What is your housing situation today? I have luisito sing 07/07/[address] you li [...] not to disclose 2021 10:24 AM EDT Last Filed Vital Signs Vital Sign Reading Time Taken Comments Blood Pressure 144/84 07/13/2025 9:55 AM EDT Pulse 75 07/13/2025 9:55 AM EDT Temperature 36 C (96.8 F) 07/07/2025 4:03 PM EDT Respiratory Rate 20 07/07/2025 4:03 PM EDT Oxygen Saturation 96% 06/14/2025 2:53 PM EDT Inhaled Oxygen Concentration - - Weight 98 kg (216 lb 2 oz) 07/07/2025 4:03 PM ED T Height 170.2 cm (5' 7 ) 07/07/2025 4:03 PM EDT Body Mass Index 33.85 07/07/2025 4:03 PM EDT Plan of Treatment Upcoming Encounters Date Type Department Care Team (Late st Contact Info) Description 08/10/2025 9:00 AM EDT Medication Management [facility] [address] [place] [address] Kavin Tan, PharmD [address] [place] [address] 08/31/2025 10:30 AM EST Office Visit [facility] [address] [place] [address] Marleny Beebe MD [address] [place], [place] [phone] Health Maintenance Due Date Last Done Comments CT Colonography 1951 Colonoscopy 1951 Colorectal Cancer Screening 1950 FIT DNA/Cologuard 1950 FIT 1950 FOBT 1950 Sigmoidoscopy 1950 RSV Patients and Patients Aged 60 years or older (1 - Risk 60-74 years 1-dose series) 2011 Dental Oral Exam 02/07/2024 08/07/2023, 10/30/2021 Dental Prophylaxis 02/07/2024 08/07/2023, 11/08/2009 Depression Screening 05/23/2024 05/23/2023, 05/23/20 Diabetes: Urine Protein Screening 05/23/2024 05/23/2023, 09/14/2020 Lipid Panel 05/23/2024 05/23/2023, 04/0 05/2022, 07/31/2020 Dental X-Ray: Bitewings 08/08/2024 08/07/20 23, 05/19/2017, 05/19/2017, Additional history exists COVID-19 Vaccine ( season) 2025 07/24/2023, 11/02/2021, 02/08/2021, Additional history exists Influenza Vaccine (#1) 2025 , 07/06/2021, 09/13/2020, Additional history exists Eye Exam 09/01/2025 09/01/2023, 08/14, 09/01/2023, Additional history exists Diabetes: Hemoglobin A1C 09/13/2025 025, 12/30/2023, 05/23/2023, Additional history exists Alcohol/Substance Use Screening 07/07/2026 07/07/2025 Diabetes: Foot Exam 07/07/2026 07/07/2025, 07/07/2025, 07/07/2025, Additional history exists SDOH Screening 07/07/2026 07/07/2025 Tobacco Screening 07/07/2026 07/07/2025 Dental X-Ray: Full Mouth 08/08/2026 023, 11/29/2020, 07/31/2009 DTaP/Tdap/Td Vaccines (3 - Td or Tdap) 01/19/2027 01/19/2017, 09/25/2012 Zoster Vaccines Completed 05/28/2021, 03/26/2021 Pneumococcal Vaccine: 50+ Years Completed 12/18/2022, 02/17/2014, 07/15/2012 Hepatitis C Screening Completed 05/23/2023 HIB Vaccines Aged Out No longer eligi ble based on patient's age to complete this topic HPV Vaccines Aged Out No longer eligi ble based on patient's age to complete this topic Hepatitis A Vaccines Aged Out No long er eligible based on patient's age to complete this topic Hepatitis B Vaccines Aged Out No long er eligible based on patient's age to complete this topic IPV Vaccines Aged Out No longer eligi ble based on patient's age to complete this topic Meningococcal B Vaccine Aged Out No l onger eligible based on patient's age to complete this topic Meningococcal Vaccine Aged Out No vickie elizabeth eligible based on patient's age to complete this topic RSV under 20 months Aged Out No longe r eligible based on patient's age to complete this topic Rotavirus Vaccines Aged Out No longer eligible based on patient's age to complete this topic Procedures Procedure Name Priority Date/Time Associated Diagnosis Comments POCT GLUCOSE Routine 06/14/2025 3:07 PM EDT Elevated glucose POCT GLYCATED HEMOGLOBIN, TOTAL Routine 06/14/2025 3:04 PM EDT Elevated glucose POCT INFLUENZA B (ID NOW RAPID MOLECULAR) Routine 06/03/2025 2:48 PM EDT Acute cough POCT INFLUENZA A (ID NOW RAPID MOLECULAR) Routine 06/03/2025 2:48 PM EDT Acute cough POCT RAPID COVID ANTIGEN Routine 06/03/2025 2:48 PM EDT Acute cough CBC WITH AUTO DIFFERENTIAL Routine 05/27/2025 4:11 PM EDT Type 2 diabetes mellitus with hyperglycemia, with long-term current use of insulin (CMS/HCC) COMPREHENSIVE METABOLIC PANEL Routine 05/27/2025 4:11 PM EDT Type 2 diabetes mellitus with hyperglycemia, with long-term current use of insulin (CMS/HCC) POCT GLUCOSE Routine 05/27/2025 3:40 PM EDT Type 2 diabetes mellitus with hyperglycemia, with long-term current use of insulin (CMS/HCC) PROPHYLAXIS - ADULT Routine 08/07/2023 2 :00 PM EDT INTRAORAL - COMPLETE SERIES OF RADIOGRAPHIC IMAGES Routine 08/07/2023 2:00 PM EDT COMPREHENSIVE ORAL EVALUATION - NEW OR ESTABLISHED PATIENT Routine 08/07/2023 2:00 PM EDT HEPATITIS PANEL, GENERAL Routine 05/23/2023 11:16 AM EDT Encounter for preventive health examination LIPID PANEL WITH REFLEX TO DIRECT LDL Routine 05/23/2023 11:16 AM EDT Benign essential hypertension Type 2 diabetes mellitus with hyperglycemia, with long-term current use of insulin (CMS/HCC) ALBUMIN, RANDOM URINE W/CREATININE Routine 05/23/2023 11:15 AM EDT from Last 3 Months or Most Recently Relevant to Health Maintenance Results * (ABNORMAL) POCT glucose manually resulted (06/14/2025 3:07 PM EDT) Only the most recent of2 resultswithin the time period is included. Glucose Blood, POC 224(A) 60 - 200 mg/dL Blood Capillary blood specimen / Unknown 06/14/2025 3:07 PM EDT us Jasen Lamar MD POINT OF CARE TEST ENTER/EDIT OR DERABLES Final Result * (ABNORMAL) POCT A1c (06/14/2025 3:04 PM EDT) [facility] Hemoglobin A1C 8.3(A) 4.0 - 5.7 % Blood 06/14/2025 3:04 PM EDT Jasen Lamar MD POINT OF CARE TEST ENTER/EDIT OR DERABLES Final Result * Influenza B (ID NOW Rapid Molecular) (06/03/2025 2:48 PM EDT) [facility] Influenza B Negative Negative, Indeterminate [facility] Swab 06/03/2025 2:48 PM EDT Jasen Lamar MD POINT OF CARE TEST ENTER/EDIT OR DERABLES Final Result Performing Organization Address [facility] Co de Phone Number [facility] [address] [place] [phone] * Influenza A (ID NOW Rapid Molecular) (06/03/2025 2:48 PM EDT) [facility] Influenza A Negative Negative, Indeterminate [facility] Swab 06/03/2025 2:48 PM EDT Jasen Lamar MD POINT OF CARE TEST ENTER/EDIT OR DERABLES Final Result Performing Organization Address [facility]/ZIP Co de Phone Number [facility] [address] [place] [phone] * POCT Rapid COVID Ag (06/03/2025 2:48 PM EDT) [facility] Rapid COVID Ag Negative [facility] Swab 06/03/2025 2:48 PM EDT us Jasen Name MD POINT OF CARE TEST ENTER/EDIT OR DERABLES Final Result [facility] [address] [place] [phone] * (ABNORMAL) CBC auto differential (05/27/2025 4:11 PM EDT) White Blood Count 10.7 4.8 - 10.8 X10*3/uL [facility] Red Blood Count 4.64 4.60 - 5.80 X10*6/uL [facility] Hemoglobin 13.7(L) 14.0 - 18.0 g/dl [facility] Hematocrit 40.6(L) 42.0 - 52.0 % [facility] Mean Corpuscular Volume 87.5 80.0 - 98.0 fL [facility] Mean Corpuscular Hemoglobin 29.5 27.0 - 33.0 pg [facility] Mean Corpuscular HGB Conc 33.7 31.0 - 36.0 g/dl [facility] Red Cell Distribution Width 13.2 11.0 - 16.0 % [facility] Platelet Count 246 160 - 400 X10*3/uL [facility] Mean Platelet Volume 10.8 9.4 - 12.4 fL [facility] Neutrophils Percent Auto 56.0 45 - 73 % [facility] Imm Gran Pct Auto 0.6(H) 0.0 - 0.4 % [facility] Lymphocytes Percent Auto 32.7 20 - 40 % [facility] Monocytes Percent Auto 6.3 2 - 11 % [facility] Eosinophils Percent Auto 3.8 0 - 4 % [facility] Basophils Percent Auto 0.6 0 - 2 % [facility] NRBC Pct Auto 0.0 0.0 - 0.2 /100WBC [facility] Neutrophils Absolute Auto 6.0 2.0 - 8.3 x10*3/uL [facility] Imm Gran Abs Auto 0.06(H) 0.00 - 0.03 X10*3/uL [facility] Lymphocytes Absolute Auto 3.5 1.2 - 4.9 X10*3/uL [facility] Monocytes Absolute Auto 0.7 0.1 - 1.2 X10*3/uL [facility] Eosinophils Absolute Auto 0.4 0.0 - 0.4 X10*3/uL [facility] Basophils Absolute Auto 0.1 0.0 - 0.2 X10*3/uL [facility] NRBC Abs Auto 0.000 0.0 - 0.012 X10*3/uL [facility] Blood Venous blood specimen / Unknown 05/27/2025 4:11 PM EDT 05/27/2025 5:41 PM EDT us Judy Meraz NP LAB BLOOD ORDERABLES Final Resul t [facility] [address] [place] [phone] * (ABNORMAL) Comprehensive Metabolic Panel (05/27/2025 4:11 PM EDT) Sodium 138 135 - 145 mmol/L [facility] Potassium 5.0 3.3 - 5.1 mmol/L [facility] Comment:Mild Hemolysis.Inter pret result with caution Chloride 103 96 - 108 mmol/L [facility] Carbon Dioxide 23 22 - 29 mmol/L [facility] Anion Gap 17 12 - 20 [facility] Urea Nitrogen (BUN) 17(H) 9 - 16 mg/dL [facility] Creatinine, Serum 1.01 0.5 - 1.4 mg/dL [facility] Estimated Glomerular Filt Rate >60 [facility] Comment:Chronic Kidney Disea se: Estimated GFR < 60 mL/min/[id number] Kidney Disease: Estimated GFR < 15 mL/min/1.73m2 Glucose 138(H) 60 - 115 mg/dL [facility] Calcium 8.5 8.4 - 10.2 mg/dL [facility] Bilirubin, Total 0.4 0.0 - 1.0 mg/dL [facility] Aspartate Amino Transferase 36 5 - 37 U/L [facility] Comment:Mild Hemolysis.Inter pret result with caution Alanine Aminotransferase 18 0 - 40 U/L [facility] Total Protein 7.7 6.5 - 8.0 g/dL [facility] Comment:Mild Hemolysis.Inter pret result with caution Albumin Level 4.0 3.5 - 5.0 g/dL [facility] Alkaline Phosphatase 72 39 - 117 U/L [facility] Blood Venous blood specimen / Unknown 05/27/2025 4:11 PM EDT 05/27/2025 5:41 PM EDT us uJdy Meraz NP LAB BLOOD ORDERABLES Final Resul t [facility] [address] [place] [phone] * Lipid Panel with Reflex to Direct LDL (05/23/2023 11:16 AM EDT) Triglycerides 91 mg/dL [facility] Comment:Desirable Triglyceri de: less than 150 mg/dLBorderline High Triglyceride 150-199 mg/dLHigh Triglyceride: 200-499 mg/dLVery High Triglyceride: greater than or equal to 5OO mg/dL Cholesterol 129 mg/dL [facility] Comment:Desirable Cholestero l: less than 200 mg/dLBorderline High Cholesterol: 200-239 mg/dLHigh Cholesterol: greater than 239 mg/dL LDL Cholesterol Calculated 73 mg/dl [facility] Comment:Desirable LDL: less than 100 mg/dLNear Optimal/Above Optimal LDL: 110- 129 mg/dLBorderline High LDL: 130-159 mg/dLHigh LDL: 160-189 mg/dLVery High LDL: greater than or equal to 190 mg/dL HDL Cholesterol 38 mg/dL [facility] Comment:Desirable HDL: great er than 40 mg/dL Note: This HDL assay may give artificially low results in patients with liver disease. Blood 05/23/2023 11:1 6 AM EDT 05/23/2023 1:49 PM EDT Marleny Beebe MD LAB BLOOD ORDERABLES Fin al Result Performing Organization Address [facility] Co de Phone Number [facility] [address] [place] [phone] * Hepatitis Panel, General (05/23/2023 11:16 AM EDT) Hepatitis A IgM Nonreactive Nonreactive [facility] Comment:IgM antibodies to COTTO V not detected; does not exclude earlyacute or recovered HAV infection. ~Hepatitis B Surface Antibody REACTIVE Nonreactive [facility] Comment:REACTIVE: > 11.99 mI U/mL Hepatitis B Core Antibody Reactive Nonreactive [facility] Comment:Presumptive evidence of anti-HBc. Hepatitis C Antibody Nonreactive Nonreactive [facility] Comment:Antibodies to HCV no t detected; does not exclude early acuteHCV infection. Hepatitis B Surface Ag Negative Negative [facility] Blood 05/23/2023 11:1 6 AM EDT 05/23/2023 1:49 PM EDT Marleny Beebe MD LAB BLOOD ORDERABLES Fin al Result Performing Organization Address [facility] de Phone Number [facility] [address] [place] [phone] * Albumin, Random Urine W/Creatinine (05/23/2023 11:15 AM EDT) Creatinine, Urine 68.04 mg/dL [facility] Microalbumin Urine 12.0 mg/L [facility] Microalbum Creatinine Ratio Ur 17.6 ug/mg cr [facility] Comment:Albumin/Creatinine R atio Reference Ranges: Normal: < 30 ug/mg creatinine Microalbuminuria: 30 - 300 ug/mg creatinineClinical Albuminuria: > 300 ug/mg creatinine 05/23/2023 11:1 5 AM EDT 05/23/2023 4:32 PM EDT Marleny Beebe MD LAB URINE ORDERABLES Fin al Result [facility] [address] [place] [phone] from Last 3 Months or Most Recently Relevant to Health Maintenance Insurance [employer] MEDICARE REPLACEMENT [facility] STANDARD DENTAL - HSN FULL (MEDICAID) * Guarantor: Marin Valdez Account Type Relation to Patient Date of Phone Billing Address Personal/Family Self [address] Care Teams Central Supply Clerk Relationship Specialty Start Date End Date Marleny Beebe MD [address] [place] [address] PCP - General Family Medicine 12/25/16 Kavin Tan, PharmD [address] [place] [phone] Pharmacist Pharmacy 07/13/25
--- OUTSIDE RECORDS SUMMARY | 2025-07-13 13:51 | XMS_ITS | Clinical Summary ---
Author Organization [facility] ity Address [address] [place] [address] Care Team Providers Care [employer] Manager Name Role Phone Saad Cesar MD Primary Care Provider Immunizations Immunization Administration Dates Next Due Moderna SARS-CoV-2 COVID-19, mRNA, LNP-S, preservative free 11/02/2021,02/08/2021,01/11/2021 Surgical History Surgery Date Site/Laterality Comments KNEE ARTHROSCOPY PROCEDURE: ME ARTHROSCOPY KNEE DIAGNOSTIC W/WO SYNOVIAL BX SPX; COMMENT: had multiple in debbie past OTHER SURGICAL HISTORY 2012 PROCEDURE: ME UNLISTED PX ABDOMEN MUSCULOSKELETAL SYSTEM; COMMENT: for ischemic colitis and gangrenous colitis OTHER SURGICAL HISTORY PROCEDURE: ME UNLISTED PROCEDURE SPINE; COMMENT: for bulged disc CIRCUMCISION, PRIMARY PROCEDURE: HISTORICAL CIRCUMCISION OTHER SURGICAL HISTORY 11/26 PROCEDURE: ME REVJ COLOSTOMY SMPL RLS SUPFC SCAR SPX Medical History Medical History Date Comments Gout DX:Gout Hypertension DX:Hypertension Type 2 diabetes mellitus wit h diabetic nephropathy ([facility] V24, [facility] V28) DX: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 (HCC) Left leg DVT ([facility] V24, [facility] [place] V28) DX:Left leg DVT (HCC) Leg edema DX:Leg edema Osteoarthritis DX:Osteoarthriti s Arthritis, lumbar spine DX:Arthr itis, lumbar spine; COMMENT: recieved cortisone injections, had surgery Ischemic colon ([facility] V24) DX: Ischemic colon (HCC) Acute vascular insufficiency of intestine ([facility] V24) DX:Acute vascular insufficie ncy of intestine ([facility]); COMMENT: s/p surgery COPD (chronic obstructive pu lmonary disease) [facility], [facility] V28) DX:COPD (chronic o bstructive pulmonary disease) ([facility]); COMMENT: emphysema Obstructive sleep apnea DX:Obstr uctive sleep apnea; COMMENT: on CPAP at night Depression, major DX:Depression, major Ileostomy in place ([facility] V24, [facility] V28) 09/25/2012 DX:Ileostomy in place ([facility]) Osteoarthritis DX:Osteoarthriti s Type II or unspecified type diabetes mellitus with unspecified complication, not stated as uncontrolled DX:Type II or unspecified ty pe diabetes mellitus with unspecified complication, not stated as uncontrolled CKD (chronic kidney disease) stage 3, GFR 30-59 ml/min ([facility] V24, [facility] V28) 05/03/2013 DX:CKD (chronic kidney disea se) stage 3, GFR 30-59 ml/min ([facility]) COPD (chronic obstructive pu lmonary disease) ([facility] V24, [facility] V28) DX:COPD (chronic o bstructive pulmonary disease) ([facility]) Incisional hernia 02/17/2014 DX:Incisional hernia Hyperlipidemia 06/28/2015 DX:Hyperlipidemi a Family History Medical History Relation Name Comments Lung cancer Father Diabetes Mother Other cancer Mother Blindness Neg Hx Cataracts Neg Hx Glaucoma Neg Hx Macular degeneration Neg Hx Strabismus Neg Hx Relation Name Status Comments Father Mother Social History Tobacco Use Types Packs/Day Years Used Date Smoking Tobacco: Former Cigarettes Q uit: 10/13/1993 Smokeless Tobacco: Former Alcohol Use Standard Drinks/Week Comments No 0 (1 standard drink = 0.6 oz pur e alcohol) Sex and Gender Information Value Date Recorded Sex Assigned at Not on file Legal Sex Male 1:00 AM EST Gender Identity Not on file Sexual Orientation Not on file Obstetrics History Plan of Treatment Health Maintenance Due Date Last Done Comments Zoster Vaccines (1 of 2) 12/30/2001 Pneumococcal Vaccine: 50+ Years (2 of 2 - PCV) 02/17/2015 02/17/2014 DTaP,Tdap,and Td Vaccines (2 - Td or Tdap) 09/25/2022 09/25/2012 Depression Screening 10/13/2024 COVID-19 Vaccine ( season) 2025 11/02/2021, 02/08/2021, 01/11/2021 Influenza Vaccine (#1) 2025 6, 06/28/2015, 08/23/2014, Additional history exists RSV Immunization Adult Patients (1 - 1-dose 75+ series) 12/30/2026 HIB Vaccines Aged Out No longer eligi [...] on patient's age to complete this topic MMR Vaccines Aged Out No longer eligi ble based on patient's age to complete this topic Meningococcal ACWY Vaccine Aged Out N o longer eligible based on patient's age to complete this topic Meningococcal B Vaccine Aged Out No l onger eligible based on patient's age to complete this topic RSV Immunization Patients Under 20 months Aged Out No longer eligible based on patient's age to complete this topic Varicella Vaccines Aged Out No longer eligible based on patient's age to complete this topic Care Teams [employer] Manager Relationship Specialty Start Date End Date Saad Cesar MD PCP - General Internal Medicine 09/16/12
--- OUTSIDE RECORDS SUMMARY | 2025-07-13 13:51 | XMS_ITS | Encounter Summary ---
Author Organization [employer] Address [address] [facility] [address] [place] [address] Care Team Providers Care Fighting Vehicle Systems Maintainer Name Role Phone Marleny Beebe MD Primary Care Provider + Kavin Tan PharmD Unavailable [phone] Reason for Visit * Reason Comments Med Refill Encounter Details Date Type Department Care Team (Late st Contact Info) Description 05/30/2023 Refill [facility] [address] [place], [place] [phone] Laurel Jiang MD [address] [place], [place] [phone] Anxiety and depression Social History Tobacco Use Types Packs/Day Years Used Date Smoking Tobacco: Never Passive Smoke Exposure: Never Smokeless Tobacco: Never Alcohol Use Standard Drinks/Week Comments Never 0 (1 standard drink = 0.6 oz pur e alcohol) PHQ-2 Answer Date Recorded Patient Health Questionnaire-2 Score 0 05/23/2023 Depression Answer Date Recorded Patient Health Questionnaire-2 Score 0 05/23/2023 Sex and Gender Information Value Date Recorded [...] Description 08/10/2025 9:00 AM EDT Medication Management [facility] [address] [place] [address] Kavin Tan, PharmD [address] [place] [address] 08/31/2025 10:30 AM EST Office Visit [facility] [address] [place] [address] Marleny Beebe MD [address] [place] [address] documented as of this encounter Visit Diagnoses Diagnosis Anxiety and depression documented in this encounter Care Teams Fighting Vehicle Systems Maintainer Relationship Specialty Start Date End Date Marleny Beebe MD [address] [place] [phone] PCP - General Family Medicine 12/25/16 Kavin Tan, PharmD [address] [place] [phone] Pharmacist Pharmacy 07/13/25 documented as of this encounter
--- OUTSIDE RECORDS SUMMARY | 2025-07-13 13:51 | XMS_ITS | Encounter Summary ---
Author Organization [employer] Address [address] [place] [address] [address] [place] [address] Care Team Providers Care Data Network Architect Name Role Phone Marleny Beebe MD Primary Care Provider + Kavin Tan PharmD Unavailable [phone] Encounter Details Date Type Department Care Team (Late st Contact Info) Description 05/26/2023 Orders Only [facility] [address] [place], [place] [phone] Dejah Stewart LPN Social History Tobacco Use Types Packs/Day Years Used Date Smoking Tobacco: Never Smokeless Tobacco: Never Alcohol Use Standard [...] Description 08/10/2025 9:00 AM EDT Medication Management [facility] [address] [place] [address] [phone] Kavin Tan, PharmD [address] [place] [address] 08/31/2025 10:30 AM EST Office Visit [facility] [address] [place] [address] [phone] Marleny Beebe MD [address] [place] [address] documented as of this encounter Visit Diagnoses Not on filedocumented in this encounter Care Teams Data Network Architect Relationship Specialty Start Date End Date Marleny Beebe MD [address] [place] [address] [phone] PCP - General Family Medicine 12/25/16 Kavin Tan, NahumD [address] [place] [address] [phone] Pharmacist Pharmacy 07/13/25 documented as of this encounter
--- OUTSIDE RECORDS SUMMARY | 2025-07-13 13:51 | XMS_ITS | Encounter Summary ---
Author Organization [employer] Address [address] [facility] [address] [place] [address] Care Team Providers Care Postal Service Window Clerk Name Role Phone Marleny Beebe MD Primary Care Provider + Kavin Tan PharmD Unavailable [phone] Reason for Visit * Reason Onset Date Comments Insurance 07/13/2025 Encounter Details Date Type Department Care Team ([facility] st Contact Info) Description 07/13/2025 Telephone [facility] [address] [place], [place] [phone] Marleny Beebe MD [address] [place], [place] [phone] Insurance Social History Tobacco Use Types Packs/Day Years Used Date Smoking Tobacco: Former Cigarettes Passive Smoke Exposure: Past Smokeless Tobacco: Never Alcohol Use Standard Drinks/Week Comments Never 0 (1 standard drink = 0.6 oz pur e alcohol) PHQ-2 Answer Date Recorded Patient Health Questionnaire-2 Score 0 05/23/2023 Housing Stability Answer Date Recorded What is your housing situation today? I have luisito castaneda 07/07/[address] you [...] AM EDT documented as of this encounter Miscellaneous Notes * Telephone Encounter - Luli Tan - 07/13/2025 9:13 AM EDT Patient walked in for scheduled appointment patient insurance was inactive I informed patient to [employer] insurance enrollment , patient came back Liz told me she spoke to marcio and they said he would be all set for today's appointment. documented in this encounter Plan of Treatment Upcoming Encounters Date Type Department Care Team (Late st Contact Info) Description 08/10/2025 9:00 AM EDT Medication Management [facility] [address] [place] [phone] Kavin Tan, PharmD [address] [place] [phone] 08/31/2025 10:30 AM EST Office Visit [facility] [address] [place] [phone] Marleny Beebe MD [address] [place] [phone] documented as of this encounter Visit Diagnoses Not on filedocumented in this encounter Care Teams Postal Service Window Clerk Relationship Specialty Start Date End Date Marleny Beebe MD [address] [place] [phone] PCP - General Family Medicine 12/25/16 Kavin Tan, NahumD [address] [place] [phone] Pharmacist Pharmacy 07/13/25 documented as of this encounter
--- OUTSIDE RECORDS SUMMARY | 2025-07-13 13:51 | XMS_ITS | Encounter Summary ---
Author Organization [employer] Address [address] 7t [place] [address] Care Team Providers Care Middle [employer] Football Coach Name Role Phone Marleny Beebe MD Primary Care Provider + Encounter Details Date Type Department Care Team ([facility] st Contact Info) Description 07/11/2025 Telephone [facility] MED[facility]INE [address] [place], [place] [phone] Marleny Beebe MD 230 [place], [place] [phone] Social History Tobacco Use Types Packs/Day Years [...] encounter Miscellaneous Notes * Telephone Encounter - Laverne Roque RN - 07/11/2025 1:48 PM EDT Noted. RN spoke to [facility] pharmacy in regards to medication reconciliation. [facility] pharmacy will completemedication reconciliation on 07/13/25 at 9am, patient was informed and agreed to appointment date and time. RN has cancelled RN [place] appointment for 07/14/25. RN has referred [facility] to [facility] for usp for medication management and PT for home safety evaluation. PCP notified. ----- Message from Marleny Beebe MD sent at 07/09/2025 8:58 AM EDT ----- Patient has an RN visit for med rec, I will refer him for med boxes again (he was probably discharged due to noncompliance earlier this year), please let me know if he is easier to make an appointment with MTM program or pharmacy for this med rec as patient does not know exactly which medication ishe taking. Also, will need evaluation of the home safety as he has had several falls at home and has difficulty with transfers inside the home, have prescribed with a walker and a cane, unclear if he needs anything else. He is Tramal is to be contacted if patient does not answer, he forgets to turn on the phone at times. documented in this encounter Plan of Treatment Upcoming Encounters Date Type Department Care Team (Late st Contact Info) Description 08/10/2025 9:00 AM EDT Medication Management [address] [address] Kavin Tan, PharmD [address] [place] [address] 08/31/2025 10:30 AM EST Office Visit [address] [phone] Marleny Beebe MD [address] [place] [address] [phone] documented as of this encounter Visit Diagnoses Not on filedocumented in this encounter Care Teams Middle School Football Coach Relationship Specialty Start Date End Date Marleny Beebe MD [address] [place] [address] [phone] PCP - General Family Medicine 12/25/16 documented as of this encounter
--- OUTSIDE RECORDS SUMMARY | 2025-07-13 13:51 | XMS_ITS | Encounter Summary ---
Author Organization [employer] Address [address] 7t [place] [address] Care Team Providers Care Pigs Feet Cleaner Name Role Phone Marleny Beebe MD Primary Care Provider + Kavin Tan PharmD Unavailable [phone] Encounter Details Date Type Department Care Team (Late st Contact Info) Description 07/11/[address] [facility] MEDICINE 230 [place] [address] Marleny Beebe MD 230 [place], [place] [phone] Benign essential hypertension (Primary Dx) Social History Tobacco Use Types Packs/Day Years [...] as of this encounter Progress Notes * Rebecca Braswell MD - 07/11/2025 1:13 PM EDT There is an MTM referral from Dr. Beebe from January,. Should I cancel that one and proceedwith the new one? * Rebecca Braswell MD - 07/11/2025 1:13 PM EDT Anytime! documented in this encounter Plan of Treatment Upcoming Encounters Date Type Department Care Team (Late st Contact Info) Description 08/10/2025 9:00 AM EDT Medication Management [facility] [address] [place] [address] Kavin Tan, PharmD 230 [place] [address] 08/31/2025 10:30 AM EST Office Visit [facility] [address] [place] [address] Marleny Beebe MD 230 [place] [address] documented as of this encounter Visit Diagnoses Diagnosis Benign essential hypertension- Primary Essential hypertension, benign documented in this encounter Care Teams Pigs Feet Cleaner Relationship Specialty Start Date End Date Marleny Beebe MD 230 [place] [address] PCP - General Family Medicine 12/25/16 Kavin Tan, NahumD 230 [place] [address] Pharmacist Pharmacy 07/13/25 documented as of this encounter
--- OUTSIDE RECORDS SUMMARY | 2025-07-13 13:52 | XMS_ITS | Encounter Summary ---
Author Organization [employer] Address [address] [place] [address] 7t [place] [address] Care Team Providers Care Animal Keeper Name Role Phone Marleny Beebe MD Primary Care Provider + Kavin Tan PharmD Unavailable [phone] Reason for Visit * Reason Comments Med Refill Encounter Details Date Type Department Care Team (Late st Contact Info) Description 03/06/2023 Refill [facility] [address] [place] [address] [phone] Marleny Beebe MD [address] [place] [address] Primary hypertension; Controlled type 2 diabetes mellitus with hyperglycemia, with long-term current use of insulin ([facility]) Social History Tobacco Use Types Packs/Day Years Used Date Smoking Tobacco: Never Assessed Sex and Gender Information Value Date Recorded [...] Description 08/10/2025 9:00 AM EDT Medication Management [facility] [address] [place] [address] [phone] Kavin Tan, PharmD 230 [place] [address] 08/31/2025 10:30 AM EST Office Visit [facility] [address] [place] [address] [phone] Marleny Beebe MD [address] [place] [address] documented as of this encounter Visit Diagnoses Diagnosis Primary hypertension Unspecified essential hypertension Controlled type 2 diabetes mellitus with hyperglycemia, with long-term current use of insulin (HCC) documented in this encounter Care Teams Animal Keeper Relationship Specialty Start Date End Date Marleny Beebe MD [address] [place] [phone] PCP - General Family Medicine 12/25/16 Kavin Tan, NahumD [address] [place] [address] [phone] Pharmacist Pharmacy 07/13/25 documented as of this encounter
--- OUTSIDE RECORDS SUMMARY | 2025-07-13 13:52 | XMS_ITS | Encounter Summary ---
Author Organization [employer] Address [address] [facility] 7t [place] [address] Care Team Providers Care Manager Summer Name Role Phone Marleny Beebe MD Primary Care Provider + Kavin Tan PharmD Unavailable [phone] Encounter Details Date Type Department Care Team (Late st Contact Info) Description 03/06/2023 Orders Only [facility] CHC MED & PEDS [address] [place], [place] [phone] Dejah Stewart LPN Social History Tobacco Use [...] Description 08/10/2025 9:00 AM EDT Medication Management [address] [address] Kavin Tan, PharmD 230 [place] [address] 08/31/2025 10:30 AM EST Office Visit [address] [address] Marleny Beebe MD [address] [place] [address] documented as of this encounter Visit Diagnoses Not on filedocumented in this encounter Care Teams Manager Summer Relationship Specialty Start Date End Date Marleny Beebe MD 230 [place], [place] [phone] PCP - General Family Medicine 12/25/16 Kavin Tan, NahumD 230 [place], [place] [phone] Pharmacist Pharmacy 07/13/25 documented as of this encounter
--- OUTSIDE RECORDS SUMMARY | 2025-07-13 13:52 | XMS_ITS | Encounter Summary ---
Author Organization [employer] Address [address] [place] [address] 7t [place] [address] Care Team Providers Care Rd Manager Name Role Phone Marleny Beebe MD Primary Care Provider + Kavin Tan PharmD Unavailable [phone] Reason for Visit * Reason Comments Med Refill Encounter Details Date Type Department Care Team (Late st Contact Info) Description 01/29/2023 Refill [facility]INE [address] [place] [address] [phone] Marleny Beebe MD [address] [place] [phone] Controlled type 2 diabetes mellitus with hyperglycemia, with long-term current use of insulin ([facility]); Primary hypertension Social History Tobacco Use Types Packs/Day Years [...] Description 08/10/2025 9:00 AM EDT Medication Management [facility] [address] [place] [address] [phone] Kavin Tan, PharmD 230 [place] [address] 08/31/2025 10:30 AM EST Office Visit [facility] [address] [place] [address] [phone] Marleny Beebe MD [address] [place] [phone] documented as of this encounter Visit Diagnoses Diagnosis Controlled type 2 diabetes mellitus with hyperglycemia, with long-term current use of insulin (HCC) Primary hypertension Unspecified essential hypertension documented in this encounter Care Teams Rd Manager Relationship Specialty Start Date End Date Marleny Beebe MD [address] [place] [phone] PCP - General Family Medicine 12/25/16 Kavin Tan, NahumD [address] [place] [address] [phone] Pharmacist Pharmacy 07/13/25 documented as of this encounter
--- OUTSIDE RECORDS SUMMARY | 2025-07-13 13:52 | XMS_ITS | Encounter Summary ---
Author Organization [employer] Address [address] [place] [address] 7t [place] [address] Care Team Providers Care Environmental Studies Faculty Member Name Role Phone Marleny Beebe MD Primary Care Provider + Kavin Tan PharmD Unavailable [phone] Reason for Visit * Reason Comments Med Refill Encounter Details Date Type Department Care Team (Late st Contact Info) Description 03/06/2023 Refill [facility] [address] [place] [address] [phone] Marleny Beebe MD [address] [place] [phone] Controlled type 2 diabetes mellitus with hyperglycemia, with long-term current use of insulin ([facility]); Primary hypertension Social History Tobacco Use Types [...] Description 08/10/2025 9:00 AM EDT Medication Management [facility] [address] [place] [address] [phone] Kavin Tan, PharmD 230 [place] [address] 08/31/2025 10:30 AM EST Office Visit [facility] [address] [place] [address] [phone] Marleny Beebe MD [address] [place] [phone] documented as of this encounter Visit Diagnoses Diagnosis Controlled type 2 diabetes mellitus with hyperglycemia, with long-term current use of insulin (HCC) Primary hypertension Unspecified essential hypertension documented in this encounter Care Teams Environmental Studies Faculty Member Relationship Specialty Start Date End Date Marleny Beebe MD [address] [place] [address] PCP - General Family Medicine 12/25/16 Kavin Tan, NahumD [address] [place] [address] [phone] Pharmacist Pharmacy 07/13/25 documented as of this encounter
--- OUTSIDE RECORDS SUMMARY | 2025-07-13 13:52 | XMS_ITS | Encounter Summary ---
Author Organization [employer] Address [address] [place] [address] 7t [place] [address] Care Team Providers Care Customs Verifier Name Role Phone Marleny Beebe MD Primary Care Provider + Kavin Tan PharmD Unavailable [phone] Reason for Visit * Reason Comments Med Refill Encounter Details Date Type Department Care Team (Late st Contact Info) Description 09/18/2022 Refill [facility] MEDICINE [address] [place] [address] [phone] Marleny Beebe MD [address] [place] [address] Social History Tobacco Use Types Packs/Day Years [...] Description 08/10/2025 9:00 AM EDT Medication Management [facility] [address] [place] [address] Kavin Tan, PharmD 230 [place], [place] [phone] 08/31/2025 10:30 AM EST Office Visit [facility] [address] [place] [address] Marleny Beebe MD 230 [place] [address] documented as of this encounter Visit Diagnoses Not on filedocumented in this encounter Care Teams Customs Verifier Relationship Specialty Start Date End Date Marleny Beebe MD [address] [place] [address] PCP - General Family Medicine 12/25/16 Kavin Tan, Ana [address] [place] [address] Pharmacist Pharmacy 07/13/25 documented as of this encounter
--- OUTSIDE RECORDS SUMMARY | 2025-07-13 13:52 | XMS_ITS | Encounter Summary ---
Author Organization [employer] Address [address] [place] [address] 7t [place] [address] Care Team Providers Care Plumber Helper Name Role Phone Marleny Beebe MD Primary Care Provider + Kavin Tan PharmD Unavailable [phone] Encounter Details Date Type Department Care Team (Late st Contact Info) Description 10/25/2022 Orders Only [facility] MEDICINE [address] [place] [phone] Jyothi Mccarthy LPN Social History Tobacco Use Types Packs/Day [...] Description 08/10/2025 9:00 AM EDT Medication Management [facility]INE [address] [place] [address] Kavin Tan, PharmD 230 [place] [address] 08/31/2025 10:30 AM EST Office Visit [facility] [address] [place] [address] Marleny Beebe MD [address] [place] [address] documented as of this encounter Visit Diagnoses Not on filedocumented in this encounter Care Teams Plumber Helper Relationship Specialty Start Date End Date Marleny Beebe MD 230 [place] [address] PCP - General Family Medicine 12/25/16 Kavin Tan, Ana 230 [place] [address] Pharmacist Pharmacy 07/13/25 documented as of this encounter
--- OUTSIDE RECORDS SUMMARY | 2025-07-13 13:52 | XMS_ITS | Encounter Summary ---
Author Organization [employer] Address [address] [facility] 7t [place] [address] Care Team Providers Care Assessment Coordinator Name Role Phone Marleny Beebe MD Primary Care Provider + Kavin Tan PharmD Unavailable [phone] Encounter Details Date Type Department Care Team (Late st Contact Info) Description 03/26/2023 Orders Only [facility] MED & PEDS [address] [place], [place] [phone] Dejah Stewart LPN Social History Tobacco Use [...] Description 08/10/2025 9:00 AM EDT Medication Management [address] [address] Kavin Tan, PharmD 230 [place] [address] 08/31/2025 10:30 AM EST Office Visit [address] [address] Marleny Beebe MD [address] [place] [phone] documented as of this encounter Visit Diagnoses Not on filedocumented in this encounter Care Teams Assessment Coordinator Relationship Specialty Start Date End Date Marleny Beebe MD 230 [place], [place] [phone] PCP - General Family Medicine 12/25/16 Kavin Tan, NahumD 230 [place], [place] [phone] Pharmacist Pharmacy 07/13/25 documented as of this encounter
== END 2025-07-13 13:01 | disposition home or self-care (01) ==
LOC: HO.HOS 12:30
PROVIDERS: PCP Internal Medicine; Visit Provider Orthopaedic Surgery
DX: M25.512 Pain in left shoulder (principal)
CPT/HCPCS: 99203; G2211

== ENCOUNTER → 2025-07-13 12:35 | Outpatient (BNV) | payer MEDICARE, SELFPAY | PROVIDERS: Visit Provider Radiology Diagnostic Radiology | DX: M19.012 Primary osteoarthritis, left shoulder (principal) | CPT/HCPCS: 73030 ==

== ENCOUNTER 2025-07-20 09:54 | Outpatient (REF) | payer MEDICARE, SELFPAY ==
--- NOTE | ~2025-07-20 | XR_ITS ---
EXAMINATION: XR KNEE, LEFT CLINICAL INFORMATION: M25.562 - Pain in left knee COMPARISON: None available. TECHNIQUE: Three views of the left knee. FINDINGS: Severe medial compartment arthritis, joint space loss, osteophytes. Arthritis to a lesser degree in the lateral and patellofemoral compartment. No visible acute fracture or dislocation. No effusion. Suspected chondrocalcinosis in the lateral compartment. No suspicious bony lesions. No abnormal soft tissue calcification. XR/XR knee LT 3V IMPRESSION: Tricompartment arthritis. Severe medial compartment arthritis. Electronically signed by: John Rachel MD 07/20/2025 01:25 PM EDT
== END 2025-07-20 09:55 | disposition home or self-care (01) ==
LOC: HO.HOSX 09:54
PROVIDERS: Visit Provider Orthopaedic Surgery
DX: M17.12 Unilateral primary osteoarthritis, left knee (principal); M54.50 Low back pain, unspecified; Z79.899 Other long term (current) drug therapy
CPT/HCPCS: 20610; 73562; 99212; J1010; J2003

== ENCOUNTER 2025-07-20 12:48 | Outpatient (AMB) | payer MEDICARE, SELFPAY ==
--- NOTE | 2025-07-20 13:12 | A.OFFVIS_ITS ---
Intake Visit Reasons: New prob- Left knee pain Intake Note: Marin is a 74 year old male right hand dominant who presents with complaints of left knee pain. He describes his pain as sharp in nature. His pain has gotten worse over the last few years in spite of continued non operative treatments. He has tried physical therapy exercises which aggravated his pain. He has also tried Tylenol and anti-inflammatory medicines which gave him minimal relief. Allergies No Known Allergies Allergy (Verified 07/20/25 13:17) Medication List - Last Reconciled 07/20/25 by Jalil Rooney MD acetaminophen 500 mg PO Q6H PRN albuterol sulfate 90 mcg/actuation (Ventolin HFA) 2 puffs inhalation Q4-6H PRN allopurinol 100 mg PO BID amlodipine 10 mg PO QPM aspirin 81 mg PO QPM atorvastatin 10 mg PO QPM blood sugar diagnostic (Lime&Tonicuch Ultra Test strips) As directed cephalexin 500 mg PO BID citalopram 20 mg PO QAM doxycycline monohydrate 100 mg PO BID ertapenem 1 g IM DAILY fluticasone propionate 50 mcg/actuation 1 spray intranasal DAILY PRN fluticasone propionate 220 mcg/actuation (Flovent HFA) 1 puff inhalation BID PRN gabapentin 600 mg PO BID insulin detemir U-100 (Levemir FlexPen) 10 units subcut BEDTIME insulin detemir U-100 (Levemir FlexPen) 5 units subcut QAM metformin 1,000 mg PO BID montelukast 10 mg PO QPM PFSH Medical History HLD (hyperlipidemia) Gout Arthritis Diabetes HTN (hypertension) Surgical History History of bowel resection Hx of colonoscopy Social History Alcohol intake: never Patient Tobacco Use Status: Former Tobacco user service: No Physical Exam Const Other: Well-nourished well-developed very friendly male awake alert and oriented x3 in no acute distress Extrem Other: Left knee examination shows a minimal effusion, palpable crepitus with range of motion, pain with range of motion, no instability Office Procedures AMB Joint Injection/Aspiration Joint Injection/Aspiration Primary Site: left knee Prep: site was prepped using aseptic technique Injected: 40 mg of, DepoMedrol and 1% plain lidocaine Procedure: The patient tolerated the procedure well Coding - Large joint Procedure code (CPT) selection complete Results Reviewed Results Reviewed: X-rays of the patient's left knee taken today show severe joint space narrowing, subchondral sclerosis, osteophyte formation, no acute bony abnormalities Assessment & Plan Assessment & Plan (1) Osteoarthritis of left knee: Code(s): M17.12 - Unilateral primary osteoarthritis, left knee Category: Medical Plan Driss presents with left knee pain due to osteoarthritis. The risks and benefits of a left knee cortisone injection were discussed at length with the patient. The patient wished to proceed. He tolerated the injection well. He will continue with his activity modifications. He will contact me prior to his follow-up appointment in 3 months should any questions or concerns arise. Feel free to call me at any time should questions regarding his orthopedic management arise. I spent 21 minutes in reviewing the patient's records and imaging studies, seeing the patient and documenting in the medical record. Orders: Orders XR knee LT 3V Today M25.562 - Pain in left knee AMB Joint Injection/Aspiration Today M17.12 - Unilateral primary osteoarthritis, left knee Referrals Pain Management Referral M54.50 - Low back pain, unspecified Coding Level of Care Code Est Pt Level 3 (01648) Complex EM visit Add On G2211 Diagnoses Osteoarthritis of left knee M17.12 CPT Codes Coding - Large joint: 99298 - Large joint ([id number])
== END 2025-07-20 13:33 | disposition home or self-care (01) ==
LOC: HO.HOS 12:49
PROVIDERS: PCP Internal Medicine; Visit Provider Orthopaedic Surgery
DX: M17.12 Unilateral primary osteoarthritis, left knee (principal)
CPT/HCPCS: 20610; 99213

== ENCOUNTER → 2025-07-20 12:52 | Outpatient (BNV) | payer MEDICARE, SELFPAY | PROVIDERS: Visit Provider Radiology Diagnostic Ultrasound | DX: M25.562 Pain in left knee (principal) | CPT/HCPCS: 73562 ==

== ENCOUNTER 2025-08-04 11:03 | Outpatient (AMB) | payer MEDICARE, SELFPAY ==
[2025-08-04 11:15] VITALS: BMI 34.5
--- NOTE | 2025-08-04 11:15 | MHC.OFFVIS ---
Vital Signs 08/04/25 11:15 Height 5 ft 7 in Weight 220 lb BMI 34.5 Intake Visit Reasons: OV - Left Shoulder OA - Discuss TSA Intake Note: Marin is a 74 year old right hand dominant male who presents today for a follow up of his Left Shoulder OA. He was last seen with Dr. Rooney who sent referral to discuss possible Left TSA. Hx of DM - no A1C Allergies No Known Allergies Allergy (Verified 07/20/25 13:17) HPI HPI OV - Left Shoulder OA - Discuss TSA: Details: This is a 74-year-old with a several year history of worsening left shoulder discomfort. He is able to get through his day but can not do much overhead. He has had injections which have been helpful. He was seen by Dr. Rooney and referred to me for severe shoulder arthritis. Overall he states he does not do much his pain is tolerable. [facility] Medical History (Updated 08/04/25 @ 16:13 by Jake Goodwin MD) HLD (hyperlipidemia) Gout Arthritis Diabetes HTN (hypertension) Surgical History History of bowel resection Hx of colonoscopy Social History Alcohol intake: never Patient Tobacco Use Status: Former Tobacco user service: No Physical Exam Vital Signs: BMI result Body Mass Index 34.5 Const General: cooperative, healthy appearing, no acute distress and well groomed Orientation/consciousness: oriented to person and oriented to place HEENT Head: Yes normal to inspection, Yes normocephalic and Yes atraumatic Eyes General: appearance normal, both eyes and all related structures Alignment and Position: alignment normal Conjunctivae: conjunctivae normal EOM: EOMs intact bilaterally Neck Neck: Yes normal visual inspection and Yes trachea midline Resp Other: No rerpiratory distress Effort & Inspection: normal respiratory effort and able to speak in complete sentences Cardio Other: Palpable radial pulse with no appreciable rythmic abnormalities GI Other: No abdominal distension Back/Spine/Pelvis Cervical Spine: normal cervical lordosis and cervical ROM normal Skin General skin exam: no rashes or lesions noted Neuro General: oriented to person, oriented to place and gait normal Extrem Other: Skin is clean dry and intact over the left shoulder. He has gentle active abduction to 90 degrees and forward flexion to 120. External rotation is limited. He has painful and resisted abduction. There is crepitus with passive and active range of motion. Office Procedures Joint Inj/Aspir; Non-Pain Clin Joint Injection/Drain Details: Injected 1 mL of Decadron and 3 mL 1% lidocaine and 3 mL of 0.25% Marcaine. Site was prepped using aseptic technique. Patient tolerated the procedure well. Shoulders, Hips, Knees, Shoulder Injection Large joint : Left Shoulder Coding Procedure code (CPT) selection complete Results Reviewed Results Reviewed: I personally reviewed relevant radiographs. Severe left shoulder osteoarthritis with proximal humeral head migration. Assessment & Plan Assessment & Plan (1) Osteoarthritis of left shoulder: Code(s): M19.012 - Primary osteoarthritis, left shoulder Category: Medical Plan: This is a 74-year-old gentleman with severe osteoarthritis of the left shoulder. He is diabetic. He states his long as he does not do certain things the discomfort is tolerable and he is not limited. He is right-hand dominant. I discussed treatment options including injections and surgery. I discussed the risks, benefits and alternatives to surgery. At this point in time we elected to proceed forward with a steroid injection. This was performed in his left shoulder without complication. I warned him of the hyperglycemic effects of steroids. He may follow up in 3-4 months for either repeat injection or further discussions regarding surgery (2) Diabetes: Code(s): E11.9 - Type 2 diabetes mellitus without complications Category: Medical Plan: Hyperglycemic effects of steroids discussed. Coding Level of Care Code Est Pt Level 4 (36232) Diagnoses Osteoarthritis of left shoulder M19.012 Diabetes E11.9 CPT Codes Shoulders, Hips, Knees, - Shoulder Injection Large joint : Left Shoulder ([id number])
== END 2025-08-04 11:49 | disposition home or self-care (01) ==
LOC: HO.HOS 11:04
PROVIDERS: PCP Internal Medicine; Visit Provider Orthopaedic Surgery
DX: M19.012 Primary osteoarthritis, left shoulder (principal); E11.9 Type 2 diabetes mellitus without complications
CPT/HCPCS: 20610; 99214

== ENCOUNTER → 2025-08-04 11:03 | Outpatient (BNVA) | payer OTHER, SELFPAY | PROVIDERS: PCP Internal Medicine; Visit Provider Orthopaedic Surgery | DX: M19.012 Primary osteoarthritis, left shoulder (principal); E11.9 Type 2 diabetes mellitus without complications | CPT/HCPCS: 20610; 99212; J0665; J1100; J2003 ==

== ENCOUNTER 2025-08-10 09:50 | Inpatient (IN) | payer OTHER, SELFPAY ==
[2025-08-10] VITALS (49 sets, daily range): BP systolic 55–137; BP diastolic 13–85; PULSE 55–91; RESP 9–18; TEMP 16.1–37.8; O2SAT 92–100; BMI 44.4
--- NOTE | ~2025-08-10 | CT_ITS ---
EXAMINATION: CT HEAD WITHOUT IV CONTRAST HISTORY: dizzy. TECHNIQUE: Unenhanced helical CT of the head was performed per standard departmental protocol. Coronal and sagittal reformats of the head were also evaluated. One or more of the following techniques was used for dose reduction: Automated exposure control, adjustment of the mA and/or kV according to patient size, use of iterative reconstruction technique. DLP: 882 mGy-cm COMPARISON: An is made with the prior examination dated 07/16/2017. FINDINGS: BRAIN: There is mild prominence of the ventricular system and cortical sulci, consistent with atrophy. Scattered periventricular and subcortical white matter hypodensities are noted which are nonspecific, but often seen in the setting of small vessel ischemic disease. There is no mass effect or midline shift. No intra- or extra-axial fluid collections are identified. SINUSES: The visualized paranasal sinuses are clear. There is partial opacification of the mastoid air cells. The middle ear cavities are normally pneumatized. ORBITS: The visualized orbits are unremarkable. BONES/SOFT TISSUES: The extracranial soft tissues are unremarkable. The calvarium is intact. No suspicious lytic or sclerotic lesions. CT/CT head/brain wo IV con IMPRESSION: No acute intracranial abnormality. Electronically signed by: Braydon Cassidy MD 08/10/2025 01:42 PM EDT
--- NOTE | ~2025-08-10 | CT_ITS ---
EXAMINATION: CT ABDOMEN AND PELVIS WITHOUT CONTRAST CLINICAL INFORMATION: Acute kidney injury COMPARISON: None available. TECHNIQUE: Multidetector volumetric imaging was performed from the superior aspect of the liver through the pubic symphysis. Sagittal and coronal reformatted images were obtained on the technologist's workstation. This CT examination was performed using dose optimization techniques as appropriate, variously including the following: *Automated exposure control *Adjustment of mA and/or kV according to patient size (this includes techniques or standardized protocols for targeted exams where dose is matched to indication/reason for exam; i.e. extremities or head) *Use of iterative reconstruction technique FINDINGS: LUNG BASES: The visualized lung bases are unremarkable. LIVER, GALLBLADDER, AND BILIARY TREE: The liver is normal in size, shape, and attenuation. No focal hepatic lesion or biliary ductal dilatation is present. The gallbladder is unremarkable with no evidence of radiopaque gallstones, gallbladder wall thickening, or obvious pericholecystic inflammatory changes. PANCREAS: Unremarkable. SPLEEN: Unremarkable. ADRENAL GLANDS: Unremarkable. KIDNEYS AND URETERS: There is a small exophytic cyst in the anteromedial lower pole right kidney. There is no hydronephrosis. There is no nephrolithiasis. BLADDER: Unremarkable. GASTROINTESTINAL TRACT: There is a ventral epigastric region hernia. There is dehiscent through the linea alba left of midline measuring 5 x 6 cm. Hernia sac contains anterior wall transverse colon where there appears to be a surgical anastomosis. It also involves a short segment of small bowel. The hernia sac measures 10 x 3 x 6 cm (CC by AP by transverse). There is no associated bowel dilation or fat stranding. There is a second hernia right of midline extending medial to the rectus abdominis muscle through 3.5 cm defect. Hernia sac contains mesenteric and small bowel. The hernia sac measures 9 x 5 x 10 cm (CC by AP by transverse). There is no dilation of the proximal small bowel. LYMPH NODES: Normal. VASCULAR: Mild multifocal vascular calcifications are present. PELVIC VISCERA: Unremarkable. OSSEOUS STRUCTURES: Degenerative changes are present throughout the visible spine most advanced at L4-5 where there is severe disc space narrowing with endplate osteophytes and facet arthropathy. There is a transitional L5 segment with sacralization on the right greater than left. CT/CT abdomen pelvis wo IV con IMPRESSION: No hydronephrosis or renal lithiasis. 2 ventral hernias containing bowel, as detailed above. No evidence of obstruction. Fleischner guidelines were followed. Electronically signed by: Lauro Hopkins MD 08/10/2025 01:49 PM EDT RP
--- NOTE | ~2025-08-10 | CT_ITS ---
CLINICAL HISTORY: FALL AT HOME 08/10, NECK PAIN CT cervical spine without contrast Comparison: None provided Findings: There is minimal grade 1 anterolisthesis at C2-3. Otherwise normal alignment. Vertebral body height is maintained. No acute fracture in the cervical spine. Craniocervical junction is intact. Degenerative disc disease especially at C3-4. Right-sided facet arthropathy at C2-3, C3-4 and C4-5 levels with right neural foraminal stenosis at C3-4 and C4-5 Mild focal calcification of the posterior longitudinal ligament at C2-3. No acute findings on limited view of the intracranial contents. Prevertebral soft tissues within normal limits. Atherosclerotic vascular disease. Thyroid is small. No consolidation or effusion at the lung apices. IMPRESSION: 1. No acute fracture in the cervical spine. 2. Minimal grade 1 anterolisthesis at C2-3. 3. Degenerative changes, facet arthropathy and additional nonacute findings as described. This document has been electronically signed by: Brittani lOson MD on 08/11/2025 19:25:44
--- NOTE | ~2025-08-10 | XR_ITS ---
EXAMINATION: XR CHEST CLINICAL INFORMATION: dizzy COMPARISON: May 08, 2023 TECHNIQUE: Frontal view of the chest was obtained. FINDINGS: Pulmonary reticular pattern. Probable nipple opacity, left lower hemithorax. No pleural effusion or pneumothorax. No hyperinflation. Cardiomediastinal silhouette size is normal. Multilevel spondylosis. Severe degenerative changes in the left shoulder. XR/XR chest 1V IMPRESSION: No acute airspace disease. Electronically signed by: Vasiliy Mcdonald MD 08/10/2025 12:55 PM EDT
--- NOTE | 2025-08-10 10:18 | ED.GENADULT ---
HPI - General Adult General Chief complaint: General Medical Stated complaint: dizziness Time Seen by Provider: 08/10/25 10:11 Source: patient and RN notes reviewed Mode of arrival: ambulatory Limitations: no limitations History of Present Illness ED Provider: Jennifer Barahona PA-C HPI narrative: This is a 74-year-old male, with a past medical history of hyperlipidemia, gout, arthritis, diabetes, and hypertension, who presents emergency department with concerns of dizziness since yesterday around noon time. Patient that he was eating lunch and noticed that he was having increased lightheadedness. He states that the lightheadedness works since when he is changing positions. He also reports that he has had back pain and neck pain which is chronic for him however states that this has worsened. He states when he gets episodes of worsening neck and back pain the dizziness worsens. Patient denies any recent illness, denies fevers, chills, chest pain, nausea, vomiting or diarrhea. He denies any urinary symptoms. He does report that yesterday he was not drinking many fluids as he was with his son. He denies any alcohol or drug use. He states that he has a history of drug use in the past however no history of IVDA. He admits that he has not taken any of his medications in the last two days. He admits that he did take a ?pain medication? last night, he is unsure what it is however he does report that this is prescribed to him - he states that it is not gabapentin. No other complaints or concerns at this time. MD complaint: Lightheadedness Onset (ago): day(s) Radiation: non-radiation Relieving factors: none Exacerbating factors: none Associated symptoms: denies other symptoms Treatments prior to arrival: none Related Data Home Medications ?Medication ?Instructions ?Recorded ?Confirmed allopurinol 100 mg tablet 100 mg PO BID 07/01/23 08/10/25 amlodipine 10 mg tablet 10 mg PO BEDTIME 07/01/23 08/10/25 aspirin 81 mg tablet,delayed 81 mg PO BEDTIME 07/01/23 08/10/25 release atorvastatin 10 mg tablet 10 mg PO BEDTIME 07/01/23 08/10/25 blood sugar diagnostic ([employer]Touch #10 ea 07/01/23 07/20/25 Ultra Test strips) citalopram 20 mg tablet 20 mg PO DAILY 07/01/23 08/10/25 gabapentin 600 mg tablet 600 mg PO BID 07/01/23 08/10/25 metformin 1,000 mg tablet 1,000 mg PO BID 07/01/23 08/10/25 montelukast 10 mg tablet 10 mg PO BEDTIME 07/01/23 08/10/25 acetaminophen 500 mg tablet 500 mg PO Q8H PRN mild pain 12/14/23 08/10/25 chlorthalidone 25 mg tablet 25 mg PO DAILY 08/10/25 08/10/25 clotrimazole 1 % topical cream 1 appl topical BID 08/10/25 08/10/25 fluticasone furoate 200 1 inh inhalation DAILY 08/10/25 08/10/25 mcg/actuation blister powder for inhalation (Arnuity Ellipta) insulin degludec 100 unit/mL (3 3 unit subcut BEDTIME 08/10/25 08/10/25 mL) subcutaneous pen (Tresiba FlexTouch U-100 insulin) lidocaine 5 % topical patch 1 patch topical DAILY PRN Pain 08/10/25 08/10/25 lisinopril 10 mg tablet 10 mg PO BEDTIME 08/10/25 08/10/25 Allergies Allergy/AdvReac Type Severity Reaction Status Date / Time No Known Allergies Allergy Verified 08/10/25 09:53 Review of Systems Review of Systems: Constitutional : No Fever, No Chills ENT/Mouth : No sore throat, No Rhinorrhea Eyes: No Eye Pain, No Swelling, No Redness Cardiovascular : No Chest Pain, No SOB Respiratory : No Cough, No Sputum Gastrointestinal : No Nausea, No Vomiting, No Diarrhea, No abdominal Pain Genitourinary : No Dysuria, No Hematuria Musculoskeletal : No joint pain, No Myalgias, No Joint Swelling Skin : No Skin Lesions, positive skin rash Neuro : No Weakness, No Numbness, No Headache All other systems reviewed and are negative Yes all other systems are reviewed and are negative Constitutional: Constitutional: Reports as per [facility] Past Medical History Medical History (Updated 08/10/25 @ 17:04 by DANNIELLE Glass) HLD (hyperlipidemia) Gout Arthritis Diabetes HTN (hypertension) Surgical History History of bowel resection Hx of colonoscopy Social History Social History Alcohol intake: former Patient Tobacco Use Status: Former Tobacco user service: No Physical Exam ED Vital Signs: Vital Signs - 24 hr 08/10/25 09:53 08/10/25 10:00 08/10/25 10:15 Temperature 97.8 F 97.5 F Pulse Rate 67 55 69 Respiratory Rate 18 14 Blood Pressure 93/50 L 70/30 L 75/45 L Pulse Oximetry 98 99 Oxygen Delivery Method Room Air Room Air 08/10/25 10:16 08/10/25 10:31 08/10/25 10:31 Temperature Pulse Rate 62 62 Respiratory Rate Blood Pressure 82/42 L 78/35 L 78/35 L Pulse Oximetry Oxygen Delivery Method 08/10/25 10:33 08/10/25 10:34 08/10/25 10:38 Temperature Pulse Rate 61 60 75 Respiratory Rate Blood Pressure 82/25 L 82/25 L 55/31 L Pulse Oximetry Oxygen Delivery Method 08/10/25 10:38 08/10/25 10:49 08/10/25 11:06 Temperature Pulse Rate 72 56 Respiratory Rate 11 L 10 L Blood Pressure 55/31 L 70/30 L 76/37 L Pulse Oximetry 98 Oxygen Delivery Method Room Air 08/10/25 11:15 08/10/25 11:25 08/10/25 11:35 Temperature Pulse Rate 56 56 56 Respiratory Rate 10 L 11 L 10 L Blood Pressure 76/29 L 72/30 L 73/32 L Pulse Oximetry 96 94 94 Oxygen Delivery Method Room Air Room Air Room Air 08/10/25 11:45 08/10/25 11:54 08/10/25 11:57 Temperature Pulse Rate 66 59 57 Respiratory Rate 15 11 L 11 L Blood Pressure 82/29 L 84/37 L 82/41 L Pulse Oximetry 100 99 98 Oxygen Delivery Method Room Air Room Air Room Air 08/10/25 12:07 08/10/25 12:23 08/10/25 12:25 Temperature 98.2 F 61 F L Pulse Rate 58 61 Respiratory Rate 15 11 L Blood Pressure 69/33 L 82/28 L 90/13 L Pulse Oximetry 98 99 Oxygen Delivery Method Room Air Room Air 08/10/25 12:30 08/10/25 12:35 08/10/25 13:28 Temperature 97.4 F Pulse Rate 59 Respiratory Rate 12 Blood Pressure 90/50 L 80/40 L 80/40 L Pulse Oximetry 99 Oxygen Delivery Method Room Air 08/10/25 13:46 08/10/25 13:54 08/10/25 14:04 Temperature Pulse Rate 60 61 59 Respiratory Rate 13 11 L 12 Blood Pressure 93/51 L 100/67 89/51 L Pulse Oximetry 98 97 96 Oxygen Delivery Method Room Air Room Air Room Air 08/10/25 14:14 08/10/25 14:18 08/10/25 14:25 Temperature 98.2 F Pulse Rate 57 59 60 Respiratory Rate 9 L 13 10 L Blood Pressure 92/45 L 92/45 L 88/48 L Pulse Oximetry 92 98 93 Oxygen Delivery Method Room Air Room Air Room Air 08/10/25 14:34 08/10/25 15:07 08/10/25 15:07 Temperature 100.1 F Pulse Rate 57 58 Respiratory Rate 10 L 10 L Blood Pressure 87/47 L 73/23 L Pulse Oximetry 98 98 Oxygen Delivery Method Room Air Room Air 08/10/25 15:57 08/10/25 15:58 08/10/25 16:07 Temperature Pulse Rate 64 62 63 Respiratory Rate 12 10 L Blood Pressure 85/46 L 101/45 L 105/43 L Pulse Oximetry Oxygen Delivery Method 08/10/25 16:17 08/10/25 16:27 Temperature Pulse Rate 61 58 Respiratory Rate 10 L 10 L Blood Pressure 99/45 L 101/53 L Pulse Oximetry 93 94 Oxygen Delivery Method Room Air Room Air BMI result Body Mass Index 44.4 Const General: cooperative, comfortable and no acute distress Orientation/consciousness: patient oriented x3 Limitations: no limitations [facility] Head: Yes normal to inspection, Yes normocephalic and Yes atraumatic Ears: hearing grossly normal bilaterally General nose exam: Normal external nose present Face and sinus: Yes normal facial exam Mouth: Normal oral and palatal mucosa present, oropharynx normal and moist mucous membranes Throat: Yes posterior oropharynx normal Eyes General: appearance normal, both eyes and all related structures Eyelids: Yes eyelids normal Conjunctivae: conjunctivae normal Sclerae: sclerae normal Pupils: Equal, round and reactive pupils present EOM: EOMs intact bilaterally Neck Neck: Yes normal visual inspection, Yes full ROM and Yes no lymphadenopathy Lymphatic: no lymphadenopathy noted Chest Chest palpation & inspection: normal inspection of the chest Resp Effort & Inspection: normal respiratory effort and able to speak in complete sentences Auscultation: clear to auscultation bilaterally, no crackles, no rales, no rhonchi and no wheezes Cardio Rate: regular rate Rhythm: regular rhythm Heart sounds: S1 normal heart sound present and S2 normal heart sound present GI Other: Abdomen is soft, nontender, nondistended. Large old surgical incision noted in the midline, hernia noted - can be reduced. No overlying skin changes. Inspection: Yes normal to inspection Skin General skin exam: no rashes or lesions noted Trauma: no lacerations or abrasions Wounds: no wounds Neuro General: patient oriented x3 and moves all extremities Cranial nerves: Yes CN's II-XII intact bilaterally and Yes Equal, round and reactive pupils present Cognition (Neuro): normal cognition Motor exam (neuro): 5/5 motor strength present throughout and Pronator motor function not present Coordination: [id number] test normal Romberg Test: Negative Pupils: Normal pupillary reactivity/response: bilateral Extrem General: Yes normal to inspection Right upper extremity: normal to inspection Left upper extremity: normal to inspection Right lower extremity: normal to inspection Left lower extremity: normal to inspection NIH Stroke Scale Level of Consciousness: Alert Level of Consciousness Questions: Answers both questions correctly Level of Consciousness Commands: Performs both tasks correctly Best Gaze: Normal Visual: No visual loss Facial Palsy: Normal Motor Arm (Right): No drift Motor Arm (Left): No drift Motor Leg (Right): No drift Motor Leg (Left): No drift Limb Ataxia: Absent Sensory: Normal Best Language: No aphasia Dysarthia: Normal Extinction and Inattention: No abnormality Score: 0 Medications Administered Generic Name Dose Route Start Last Admin Trade Name Freq PRN Reason Stop Dose Admin Heparin Sodium (Porcine) 5,000 unit 08/10/25 18:00 08/10/25 17:56 Heparin Sodium,Porcine 5,000 Unit/Ml Vial SUBCUT 5,000 unit Q12H THEA Administration Lactated Ringer's 1,000 mls @ 100 mls/hr 08/10/25 17:15 08/10/25 20:31 Lr IVCONT 100 mls/hr .Q10H THEA Infusion Norepinephrine Bitartrate 8 mg in 250 mls @ 0 mls/hr 08/10/25 19:00 08/10/25 19:53 Levophed IVCONT 0.05 mcg/kg/min .Q0M THEA 12.43 mls/hr Protocol Administration Per Protocol Ceftriaxone Sodium 2 gm/ 50 mls @ 100 mls/hr 08/10/25 20:00 08/10/25 20:15 Sodium Chloride IV Infused Q24H THEA Infusion Discontinued Medications Generic Name Dose Route Start Last Admin Trade Name Vesta PRN Reason Stop Dose Admin Hydrocortisone Sodium Succinate 100 mg 08/10/25 15:11 08/10/25 15:28 Hydrocortisone Sod Succ/Pf 100 Mg Vial IVPUSH 08/10/25 15:12 100 mg ONCE ONE Administration Sodium Chloride 1,000 mls @ 999 mls/hr 08/10/25 10:42 08/10/25 11:53 Ns IVCONT 08/10/25 11:42 Infused .Q1H1M ONE Infusion Lactated Ringer's 1,000 mls @ 999 mls/hr 08/10/25 12:00 08/10/25 13:28 Lr IV 08/10/25 13:00 Infused .Q1H1M ONE Infusion Lactated Ringer's 1,000 mls @ 999 mls/hr 08/10/25 14:22 08/10/25 15:32 Lr IV 08/10/25 15:22 Infused .Q1H1M ONE Infusion Albumin Human 100 mls @ 133.333 mls/hr 08/10/25 15:15 08/10/25 17:13 Kedbumin 25 % IV 08/10/25 16:59 Infused Q1H THEA Infusion Medical Decision Making Medical Decision Making [facility] Narrative: This is a 74-year-old male, with a past medical history of hypertension, who presents emergency department with concerns lightheadedness which started yesterday afternoon. On arrival, patient hypotensive at 93/50 all other vital signs within normal limits. He is speaking full sentences under no acute distress. No syncopal episodes. Patient ortho static, dropped from 82/25 to 55/31. Patient had a similar presentation 2022. Differential diagnoses include orthostatic hypotension, dehydration, electrolyte derangement. Infection is not suspected as he has had no headache, fevers, chills, cough, congestion, abdominal pain, urinary symptoms, changes in bowel habits. His only complaint is lightheadedness. He has no nuchal rigidity. He is neurologically intact, no focal deficits on examination. Plan: Labs, IV fluids. 12:05 PM 08/10/2025 (Jennifer Barahona PA-C): Creatinine returns, this is elevated at 3.9 with a BUN of 70, this is much different than his baseline, usually around 1.1 and 17. This is consistent with a prerenal OLIVIA likely secondary to dehydration. Given this, will obtain CT to rule out obstruction. Again we are not suspecting any infection at this time. Discussed with attending, Dr. Simental who is in agreement. I further question patient to see if he has had any other symptoms, he states that he has only been lightheaded. He has been eating and drinking without difficulty. Urinating freely. Patient was given a L of fluids, still hypotensive at 82/41 he is very well-appearing in which stretcher. Added 2 L of lactated Ringer bolus. Added on lactic and blood cultures although infection is not suspected at this time. He adamantly denies any drug use or alcohol use. I discussed case with my attending physician, Dr. Simental, who is in agreement of this plan. 1:05 PM 08/10/2025 (Jennifer Barahona PA-C): Patient continues to be hypotensive, he states that he is overall feeling better than upon his 1st arrival, we are still awaiting his UA. He is still receiving 2 liter of lactated Ringer's. CT head negative for any acute findings. CT abdomen and pelvis revealing no obstruction. 3:35 PM 08/10/2025 (Jennifer Barahona PA-C): UA returns, he has small leuk esterases and 6-10 wbc's, and 11-20 hyaline cast. This is consistent with sterile pyuria, no evidence of UTI. He is asymptomatic with urinary symptoms. This is consistent with dehydration/OLIVIA. No infection source identified and infection is not suspected. Given that patient's blood pressure remains to be on the softer and despite receiving 3 liters of IV fluids, I discussed with my attending physician that we should start patient on albumin and hydrocortisone. 4:17 PM 08/10/2025 (Jennifer Barahona PA-C): Blood pressure has improved to 105/43. Patient is resting comfortably. He does report that overall his symptoms have improved since his arrival here in the emergency department. Discussed case with hospitalist, transfer of care initiated. Differential Diagnosis Differential Diagnoses: The differential diagnosis associated with the presentation includes OLIVIA, dehydration, orthostatic hypotension, arrhythmia Admission/Observation Consideration of admission/observation: Escalation of care including admission/observation considered Lab Data [facility] Lab Attestation statement: I reviewed the patient's lab results. See MDM and course 08/10/25 19:43 08/10/25 19:43 Labs: Lab Results 08/10/25 08/10/25 08/10/25 Range/Units 11:05 11:06 12:22 WBC 12.7 H (4.8-10.8) X10*3/uL RBC 3.83 L (4.60-5.80) X10*6/uL Hgb 11.2 L (14.0-18.0) g/dl Hct 33.2 L (42.0-52.0) % MCV 86.7 (80.0-98.0) fL MCH 29.2 (27.0-33.0) pg MCHC 33.7 (31.0-36.0) g/dl RDW 13.9 (11.0-16.0) % Plt Count 233 (160-400) X10*3/uL MPV 10.5 (9.4-12.4) fL Immature Gran % (Auto) 0.9 H (0.0-0.4) % Neut % (Auto) 61.7 (45-73) % Lymph % (Auto) 26.9 (20-40) % [place] % (Auto) 9.3 (2-11) % Eos % (Auto) 1.0 (0-4) % Baso % (Auto) 0.2 (0-2) % Lymph # (Auto) 3.4 (1.2-4.9) X10*3/uL [place] # (Auto) 1.2 (0.1-1.2) X10*3/uL Eos # (Auto) 0.1 (0.0-0.4) X10*3/uL Baso # (Auto) 0.0 (0.0-0.2) X10*3/uL Abs Immat Gran (auto) 0.11 H (0.00-0.03) X10*3/uL Absolute Neuts (auto) 7.8 (2.0-8.3) x10*3/uL Absolute Nucleated RBC 0.000 (0.0-0.012) X10*3/uL Nucleated RBC % (auto) 0.0 (0.0-0.2) /100WBC Hold Blue Top SEE NOTE Sodium 133 L (135-145) mmol/L Potassium 4.1 (3.3-5.1) mmol/L Chloride 100 (96-108) mmol/L Carbon Dioxide 22 (22-29) mmol/L Anion Gap 15 (12-20) BUN 70 H (9-16) mg/dL Creatinine 3.91 H (0.5-1.4) mg/dL Estim Creat Clear Calc 22.3 Estimated GFR 15 Random Glucose 148 H (60-115) mg/dL Lactic Acid 1.7 (0.5-2.0) mmol/L Calcium 7.9 L D (8.4-10.2) mg/dL Magnesium 1.5 L (1.6-2.6) mg/dL Total Bilirubin 0.4 (0.0-1.0) mg/dL Direct Bilirubin 0.1 (0.0-0.5) mg/dL AST 21 (5-37) U/L ALT 19 (0-40) U/L Alkaline Phosphatase 67 (39-117) U/L Total Creatine Kinase 109 (38-174) U/L Troponin I High Sens 10.1 D (<3.5-35.0) ng/L NT-Pro-B Natriuret Pep 180.3 (<300) pg/mL Total Protein 6.7 (6.5-8.0) g/dL Albumin 3.8 (3.5-5.0) g/dL Urine Color Urine Appearance Urine pH (5.0-9.0) Ur Specific [place] (1.005-1.025) Urine Protein (Neg-Trace) mg/dL Urine Glucose (UA) (Negative) mg/dL Urine Ketones (Negative) mg/dL Urine Blood (Negative) Urine Nitrite (Negative) Ur Leukocyte Esterase (Negative) Urine RBC (0-2) /HPF Urine WBC (0-5) /HPF Ur Squamous Epith Cells (0-2) /HPF Urine Bacteria (None Seen) Hyaline Casts (0-2) /LPF Urine Opiates Screen (Not Detect) Ur Buprenorphine Scrn (Not Detect) ng/mL Ur Oxycodone Screen (Not Detect) ng/mL Urine Methadone Screen (Not Detect) ng/mL Urine Fentanyl Screen (Not Detect) Ur Barbiturates Screen (Not Detect) Ur Phencyclidine Scrn (Not Detect) Ur Amphetamines Screen (Not Detect) U Benzodiazepines Scrn (Not Detect) Urine Cocaine Screen (Not Detect) U Marijuana (THC) Screen (Not Detect) 08/10/25 08/10/25 Range/Units 13:49 14:23 WBC (4.8-10.8) X10*3/uL RBC (4.60-5.80) X10*6/uL Hgb (14.0-18.0) g/dl Hct (42.0-52.0) % MCV (80.0-98.0) fL MCH (27.0-33.0) pg MCHC (31.0-36.0) g/dl RDW (11.0-16.0) % Plt Count (160-400) X10*3/uL MPV (9.4-12.4) fL Immature Gran % (Auto) (0.0-0.4) % Neut % (Auto) (45-73) % Lymph % (Auto) (20-40) % [place] % (Auto) (2-11) % Eos % (Auto) (0-4) % Baso % (Auto) (0-2) % Lymph # (Auto) (1.2-4.9) X10*3/uL [place] # (Auto) (0.1-1.2) X10*3/uL Eos # (Auto) (0.0-0.4) X10*3/uL Baso # (Auto) (0.0-0.2) X10*3/uL Abs Immat Gran (auto) (0.00-0.03) X10*3/uL Absolute Neuts (auto) (2.0-8.3) x10*3/uL Absolute Nucleated RBC (0.0-0.012) X10*3/uL Nucleated RBC % (auto) (0.0-0.2) /100WBC Hold Blue Top Sodium (135-145) mmol/L Potassium (3.3-5.1) mmol/L Chloride (96-108) mmol/L Carbon Dioxide (22-29) mmol/L Anion Gap (12-20) BUN (9-16) mg/dL Creatinine (0.5-1.4) mg/dL Estim Creat Clear Calc Estimated GFR Random Glucose (60-115) mg/dL Lactic Acid (0.5-2.0) mmol/L Calcium (8.4-10.2) mg/dL Magnesium (1.6-2.6) mg/dL Total Bilirubin (0.0-1.0) mg/dL Direct Bilirubin (0.0-0.5) mg/dL AST (5-37) U/L ALT (0-40) U/L Alkaline Phosphatase (39-117) U/L Total Creatine Kinase (38-174) U/L Troponin I High Sens 6.6 (<3.5-35.0) ng/L NT-Pro-B Natriuret Pep (<300) pg/mL Total Protein (6.5-8.0) g/dL Albumin (3.5-5.0) g/dL Urine Color Yellow Urine Appearance Clear Urine pH 5.0 (5.0-9.0) Ur Specific [place] 1.015 (1.005-1.025) Urine Protein Trace (Neg-Trace) mg/dL Urine Glucose (UA) Negative (Negative) mg/dL Urine Ketones Trace (Negative) mg/dL Urine Blood Negative (Negative) Urine Nitrite Negative (Negative) Ur Leukocyte Esterase Small (1+) H (Negative) Urine RBC 0-2 (0-2) /HPF Urine WBC 6-10 H (0-5) /HPF Ur Squamous Epith Cells 0-2 (0-2) /HPF Urine Bacteria None Seen (None Seen) Hyaline Casts 11-20 (0-2) /LPF Urine Opiates Screen Not Detected (Not Detect) Ur Buprenorphine Scrn Not Detected (Not Detect) ng/mL Ur Oxycodone Screen Not Detected (Not Detect) ng/mL Urine Methadone Screen Not Detected (Not Detect) ng/mL Urine Fentanyl Screen Not Detected (Not Detect) Ur Barbiturates Screen Not Detected (Not Detect) Ur Phencyclidine Scrn Not Detected (Not Detect) Ur Amphetamines Screen Not Detected (Not Detect) U Benzodiazepines Scrn Not Detected (Not Detect) Urine Cocaine Screen Not Detected (Not Detect) U Marijuana (THC) Screen Not Detected (Not Detect) Radiology Impression Discussion of test interpretation with radiology: I have reviewed the radiologist's reading. Radiologist Impression: [address] [address] [address] Scan Report Signed Patient: Marin Valdez MR#: [id number] : 1950 Acct:[id number] Age/Sex: 74 / M ADM Date: 08/10/25 Loc: HO.ED Attending Dr: Ordering Physician: Jennifer Barahona Date of Service: 08/10/25 Procedure(s): CT head/brain wo IV con Accession Number(s): [id number] cc: Marleny Beebe MD; Jennifer Barahona~ Report Number: [id number]: Total DLP = 887.00 mGy-cm Reason for Exam: dizzy EXAMINATION: CT HEAD WITHOUT IV CONTRAST HISTORY: dizzy. TECHNIQUE: Unenhanced helical CT of the head was performed per standard departmental protocol. Coronal and sagittal reformats of the head were also evaluated. One or more of the following techniques was used for dose reduction: Automated exposure control, adjustment of the mA and/or kV according to patient size, use of iterative reconstruction technique. DLP: 882 mGy-cm COMPARISON: An is made with the prior examination dated 07/16/2017. FINDINGS: BRAIN: There is mild prominence of the ventricular system and cortical sulci, consistent with atrophy. Scattered periventricular and subcortical white matter hypodensities are noted which are nonspecific, but often seen in the setting of small vessel ischemic disease. There is no mass effect or midline shift. No intra- or extra-axial fluid collections are identified. SINUSES: The visualized paranasal sinuses are clear. There is partial opacification of the mastoid air cells. The middle ear cavities are normally pneumatized. ORBITS: The visualized orbits are unremarkable. BONES/SOFT TISSUES: The extracranial soft tissues are unremarkable. The calvarium is intact. No suspicious lytic or sclerotic lesions. CT/CT head/brain wo IV con IMPRESSION: No acute intracranial abnormality. Electronically signed by: Braydon Cassidy MD 08/10/2025 01:42 PM EDT RP Dictated By: Braydon Cassidy MD EXAMINATION: CT ABDOMEN AND PELVIS WITHOUT CONTRAST CLINICAL INFORMATION: Acute kidney injury COMPARISON: None available. TECHNIQUE: Multidetector volumetric imaging was performed from the superior aspect of the liver through the pubic symphysis. Sagittal and coronal reformatted images were obtained on the technologist's workstation. This CT examination was performed using dose optimization techniques as appropriate, variously including the following: *Automated exposure control *Adjustment of mA and/or kV according to patient size (this includes techniques or standardized protocols for targeted exams where dose is matched to indication/reason for exam; i.e. extremities or head) *Use of iterative reconstruction technique FINDINGS: LUNG BASES: The visualized lung bases are unremarkable. LIVER, GALLBLADDER, AND BILIARY TREE: The liver is normal in size, shape, and attenuation. No focal hepatic lesion or biliary ductal dilatation is present. The gallbladder is unremarkable with no evidence of radiopaque gallstones, gallbladder wall thickening, or obvious pericholecystic inflammatory changes. PANCREAS: Unremarkable. SPLEEN: Unremarkable. ADRENAL GLANDS: Unremarkable. KIDNEYS AND URETERS: There is a small exophytic cyst in the anteromedial lower pole right kidney. There is no hydronephrosis. There is no nephrolithiasis. BLADDER: Unremarkable. GASTROINTESTINAL TRACT: There is a ventral epigastric region hernia. There is dehiscent through the linea alba left of midline measuring 5 x 6 cm. Hernia sac contains anterior wall transverse colon where there appears to be a surgical anastomosis. It also involves a short segment of small bowel. The hernia sac measures 10 x 3 x 6 cm (CC by AP by transverse). There is no associated bowel dilation or fat stranding. There is a second hernia right of midline extending medial to the rectus abdominis muscle through 3.5 cm defect. Hernia sac contains mesenteric and small bowel. The hernia sac measures 9 x 5 x 10 cm (CC by AP by transverse). There is no dilation of the proximal small bowel. LYMPH NODES: Normal. VASCULAR: Mild multifocal vascular calcifications are present. PELVIC VISCERA: Unremarkable. OSSEOUS STRUCTURES: Degenerative changes are present throughout the visible spine most advanced at L4-5 where there is severe disc space narrowing with endplate osteophytes and facet arthropathy. There is a transitional L5 segment with sacralization on the right greater than left. CT/CT abdomen pelvis wo IV con IMPRESSION: No hydronephrosis or renal lithiasis. 2 ventral hernias containing bowel, as detailed above. No evidence of obstruction. Fleischner guidelines were followed. Electronically signed by: Lauro Hopkins MD 08/10/2025 01:49 PM EDT RP Dictated By: Lauro Hopkins MD EXAMINATION: XR CHEST CLINICAL INFORMATION: dizzy COMPARISON: May 08, 2023 TECHNIQUE: Frontal view of the chest was obtained. FINDINGS: Pulmonary reticular pattern. Probable nipple opacity, left lower hemithorax. No pleural effusion or pneumothorax. No hyperinflation. Cardiomediastinal silhouette size is normal. Multilevel spondylosis. Severe degenerative changes in the left shoulder. XR/XR chest 1V IMPRESSION: No acute airspace disease. Electronically signed by: Vasiliy Mcdonald MD 08/10/2025 12:55 PM EDT RP Dictated By: Vasiliy Singh MD Chronic Conditions Patient?s care impacted by: Diabetes and Hypertension Critical Care Time Critical Care Time Critical Care Time: Yes Total Critical Care Time: 70 Attestation: I have personally provided critical care time exclusive of time spent on separately billable procedures. Time includes review of lab data, radiology results, discussion with consultants, and monitoring for potential decompensation. Intervention performed as documented. Discharge Plan Discharge Clinical Impression: OLIVIA (acute kidney injury), Orthostatic hypotension Patient Disposition: Admitted As Inpatient
--- NOTE | 2025-08-10 10:27 | ECG_ITS ---
Test Reason : dizzy Blood Pressure : */* mmHG Vent. Rate : 57 BPM Atrial Rate : 57 BPM P-R Int : 224 ms QRS Dur : 146 ms QT Int : 462 ms P-R-T Axes : 59 -51 -12 degrees QTcB Int : 449 ms Sinus bradycardia with marked sinus arrhythmia with 1st degree A-V block Right bundle branch block Left anterior fascicular block Bifascicular block Minimal voltage criteria for LVH, may be normal variant ( R in aVL ) Abnormal ECG When compared with ECG of 08-May-2023 20:36, No significant change was found Referred By: Jennifer Barahona Electronically Signed By: RADHA CONNELLY
--- NOTE | 2025-08-10 11:06 | PC.NURSE ---
patient a&ox3, iv inserted, labs drawn by tech, ekg performed, orthostates performed- pt has positive orthostats, hall monitor intact. pt c/o 04/21 genrealized pain, fall precautions placed, IVF started per order, call sanchez within reach, plan of care ongoing
[2025-08-10 11:13] LABS: MANUAL DIFF FLAG NO
[2025-08-10 11:17] LABS: Hematocrit 33.2 % (42.0-52.0); Hemoglobin 11.2 g/dl (14.0-18.0); Imm Gran Abs Auto 0.11 X10*3/uL (0.00-0.03); Imm Gran Pct Auto 0.9 % (0.0-0.4); Lymphocytes Absolute Auto 3.4 X10*3/uL (1.2-4.9); Mean Corpuscular HGB Conc 33.7 g/dl (31.0-36.0); Mean Corpuscular Hemoglobin 29.2 pg (27.0-33.0); Mean Corpuscular Volume 86.7 fL (80.0-98.0); NRBC Abs Auto 0.000 X10*3/uL (0.0-0.012); NRBC Pct Auto 0.0 /100WBC (0.0-0.2); Platelet Count 233 X10*3/uL (160-400); Red Blood Count 3.83 X10*6/uL (4.60-5.80); White Blood Count 12.7 X10*3/uL (4.8-10.8)
[2025-08-10 11:32] LABS: Alanine Aminotransferase 19 U/L (0-40); Albumin Level 3.8 g/dL (3.5-5.0); Alkaline Phosphatase 67 U/L (39-117); Anion Gap 15 (12-20); Aspartate Amino Transferase 21 U/L (5-37); Blood Urea Nitrogen 70 mg/dL (9-16); Calcium 7.9 mg/dL (8.4-10.2); Carbon Dioxide 22 mmol/L (22-29); Chloride 100 mmol/L (96-108); Creatinine Clr Calc Pharmacy 22.3; Estimated Glomerular Filt Rate 15; Magnesium 1.5 mg/dL (1.6-2.6); Potassium 4.1 mmol/L (3.3-5.1); Sodium 133 mmol/L (135-145); Total Protein 6.7 g/dL (6.5-8.0)
[2025-08-10 11:40] LABS: Troponin-I High Sensitivity 10.1 ng/L (<3.5-35.0)
[2025-08-10] MEDS: Lactated Ringers 1,000 ML 999 ML IV ×2 (12:07→14:31)
--- OUTSIDE RECORDS SUMMARY | 2025-08-10 12:19 | XMS_ITS | Encounter Summary ---
Author Organization [employer] Address [address] [facility] 7t [place] [address] Care Team Providers Care Anesthesiologist Attending Name Role Phone Marleny Beebe MD Primary Care Provider + Kavin Tan PharmD Unavailable [phone] Reason for Visit * Reason Comments Med Refill Encounter Details Date Type Department Care Team (Late st Contact Info) Description 05/30/2023 Refill [facility] [address] [place], [place] [phone] Laurel Jiang MD [address] [place] [address] [phone] Anxiety and depression Social History Tobacco Use [...] Care Team (Late st Contact Info) Description 08/31/2025 10:30 AM EST Office Visit [facility] [address] [place] [address] Marleny Beebe MD [address] [place] [address] 09/07/2025 9:00 AM EST Medication Management [facility] [address] [place], [place] [phone] Kavin Tan, PharmD [address] [place] [address] documented as of this encounter Visit Diagnoses Diagnosis Anxiety and depression documented in this encounter Care Teams Anesthesiologist Attending Relationship Specialty Start Date End Date Marleny Beebe MD [address] [place] [address] [phone] PCP - General Family Medicine 12/25/16 Kavin Tan, PharmD [address] [place] [address] [phone] Pharmacist Pharmacy 07/13/25 documented as of this encounter
--- OUTSIDE RECORDS SUMMARY | 2025-08-10 12:19 | XMS_ITS | Encounter Summary ---
Author Organization [employer] Address [address] [facility] 7t [place] [address] Care Team Providers Care Manufacturing Production Manager Name Role Phone Marleny Beeeb MD Primary Care Provider + Kavin Tan PharmD Unavailable [phone] Encounter Details Date Type Department Care Team (Late st Contact Info) Description 05/26/2023 Orders Only [facility] [address] [place], [place] [phone] Dejah Stewart LPN Social History Tobacco Use [...] Description 08/31/2025 10:30 AM EST Office Visit [facility] [address] [place] [address] [phone] Marleny Beebe MD [address] [place] [address] 09/07/2025 9:00 AM EST Medication Management [facility] [address] [place] [phone] Kavin Tan, PharmD [address] [place] [address] documented as of this encounter Visit Diagnoses Not on filedocumented in this encounter Care Teams Manufacturing Production Manager Relationship Specialty Start Date End Date Marleny Beebe MD [address] [place] [address] PCP - General Family Medicine 12/25/16 Kavin Tan, PharmD [address] [place] [phone] Pharmacist Pharmacy 07/13/25 documented as of this encounter
--- OUTSIDE RECORDS SUMMARY | 2025-08-10 12:20 | XMS_ITS | Encounter Summary ---
Author Organization [employer] Address [address] [facility] 7t [place] [address] Care Team Providers Care Binder Operator Name Role Phone Marleny Beebe MD Primary Care Provider + Kavin Tan PharmD Unavailable [phone] Encounter Details Date Type Department Care Team (Late st Contact Info) Description 03/26/2023 Orders Only [facility] [address] [place], [place] [phone] Dejah Stewart LPN Social History Tobacco Use [...] Description 08/31/2025 10:30 AM EST Office Visit [address] [address] Marleny Beebe MD [address] [place] [address] 09/07/2025 9:00 AM EST Medication Management [address] [address] Kavin Tan, PharmD [address] [place] [address] documented as of this encounter Visit Diagnoses Not on filedocumented in this encounter Care Teams Binder Operator Relationship Specialty Start Date End Date Marleny Beebe MD [address] [place], [place] [phone] PCP - General Family Medicine 12/25/16 Kavin Tan, NahumD [address] [place] [address] Pharmacist Pharmacy 07/13/25 documented as of this encounter
--- OUTSIDE RECORDS SUMMARY | 2025-08-10 12:20 | XMS_ITS | Encounter Summary ---
Author Organization [employer] Address [address] [facility] 7t [place] [address] Care Team Providers Care Welder Apprentice Arc Name Role Phone Marleny Beebe MD Primary Care Provider + Kavin Tan PharmD Unavailable [phone] Encounter Details Date Type Department Care Team (Late st Contact Info) Description 03/06/2023 Orders Only [facility] [address] [place], [place] [phone] Dejah Stewart LPN Social History Tobacco Use [...] Description 08/31/2025 10:30 AM EST Office Visit [address] [address] Marleny Beebe MD [address] [place] [address] 09/07/2025 9:00 AM EST Medication Management [address] [address] Kavin Tan, PharmD [address] [place] [address] documented as of this encounter Visit Diagnoses Not on filedocumented in this encounter Care Teams Welder Apprentice Arc Relationship Specialty Start Date End Date Marleny Beebe MD [address] [place], [place] [phone] PCP - General Family Medicine 12/25/16 Kavin Tan, NahumD [address] [place] [address] Pharmacist Pharmacy 07/13/25 documented as of this encounter
--- OUTSIDE RECORDS SUMMARY | 2025-08-10 12:20 | XMS_ITS | Encounter Summary ---
Author Organization [employer] Address [address] [place] [address] 7t [place] [address] Care Team Providers Care Strategic Partnership Representative Name Role Phone Marleny Beebe MD Primary Care Provider + Kavin Tan PharmD Unavailable [phone] Reason for Visit * Reason Comments Med Refill Encounter Details Date Type Department Care Team (Late st Contact Info) Description 03/06/2023 Refill [facility] [address] [place] [address] [phone] Marleny Beebe MD [address] [place] [address] [phone] Primary hypertension; Controlled type 2 diabetes mellitus with hyperglycemia, with long-term current use of insulin ([facility]) Social History Tobacco Use Types Packs/Day [...] Description 08/31/2025 10:30 AM EST Office Visit [facility] [address] [place] [address] [phone] Marleny Beebe MD [address] [place] [address] [phone] 09/07/2025 9:00 AM EST Medication Management [facility] [address] [place] [address] [phone] Kavin Tan, PharmD [address] [place] [phone] documented as of this encounter Visit Diagnoses Diagnosis Primary hypertension Unspecified essential hypertension Controlled type 2 diabetes mellitus with hyperglycemia, with long-term current use of insulin (HCC) documented in this encounter Care Teams Strategic Partnership Representative Relationship Specialty Start Date End Date Marleny Beebe MD [address] [place] [phone] PCP - General Family Medicine 12/25/16 Kavin Tan, PharmD [address] [place] [phone] Pharmacist Pharmacy 07/13/25 documented as of this encounter
--- OUTSIDE RECORDS SUMMARY | 2025-08-10 12:20 | XMS_ITS | Clinical Summary ---
Author Organization [facility] Address [address] [place] [address] Care Team Providers Care Glassware Verifier Name Role Phone Saad Cesar MD Primary Care Provider Immunizations Immunization Administration Dates Next Due Moderna SARS-CoV-2 COVID-19, mRNA, LNP-S, preservative free 11/02/2021,02/08/2021,01/11/2021 Surgical History Surgery Date Site/Laterality Comments KNEE ARTHROSCOPY PROCEDURE: NM ARTHROSCOPY KNEE DIAGNOSTIC W/WO SYNOVIAL BX SPX; COMMENT: had multiple in debbie past OTHER SURGICAL HISTORY 2012 PROCEDURE: NM UNLISTED PX ABDOMEN MUSCULOSKELETAL SYSTEM; COMMENT: for ischemic colitis and gangrenous colitis OTHER SURGICAL HISTORY PROCEDURE: NM UNLISTED PROCEDURE SPINE; COMMENT: for bulged disc CIRCUMCISION, PRIMARY PROCEDURE: HISTORICAL CIRCUMCISION OTHER SURGICAL HISTORY 11/26 PROCEDURE: NM REVJ COLOSTOMY SMPL RLS SUPFC SCAR SPX Medical History Medical History Date Comments Gout DX:Gout Hypertension DX:Hypertension Type 2 diabetes mellitus wit h diabetic nephropathy ([facility] V[facility], [facility] V28) DX: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 (HCC) Left leg DVT ([facility] V24, [facility] [place] V28) DX:Left leg DVT (HCC) Leg edema DX:Leg edema Osteoarthritis DX:Osteoarthriti s Arthritis, lumbar spine DX:Arthr itis, lumbar spine; COMMENT: recieved cortisone injections, had surgery Ischemic colon ([facility] V24) DX: Ischemic colon (HCC) Acute vascular insufficiency of intestine ([facility] V24) DX:Acute vascular insufficie ncy of intestine ([facility]); COMMENT: s/p surgery COPD (chronic obstructive pu lmonary disease) [facility], [facility] V28) DX:COPD (chronic o bstructive pulmonary disease) ([facility]); COMMENT: emphysema Obstructive sleep apnea DX:Obstr uctive sleep apnea; COMMENT: on CPAP at night Depression, major DX:Depression, major Ileostomy in place ([facility] V24, [facility] V28) 09/25/2012 DX:Ileostomy in place ([facility]) Osteoarthritis DX:Osteoarthriti s Type II or unspecified type diabetes mellitus with unspecified complication, not stated as uncontrolled DX:Type II or unspecified ty pe diabetes mellitus with unspecified complication, not stated as uncontrolled CKD (chronic kidney disease) stage 3, GFR 30-59 ml/min ([facility] V24, [facility] V28) 05/03/2013 DX:CKD (chronic kidney disea se) stage 3, GFR 30-59 ml/min ([facility]) COPD (chronic obstructive pu lmonary disease) ([facility] V24, [facility] V28) DX:COPD (chronic o bstructive pulmonary disease) ([facility]) Incisional hernia 02/17/2014 DX:Incisional hernia Hyperlipidemia 06/28/2015 [...] age to complete this topic Care Teams Glassware Verifier Relationship Specialty Start Date End Date Saad Cesar MD PCP - General Internal Medicine 09/16/12
--- OUTSIDE RECORDS SUMMARY | 2025-08-10 12:20 | XMS_ITS | Encounter Summary ---
Author Organization [employer] Address [address] [place] [address] 7t [place] [address] Care Team Providers Care Safe Deposit Attendant Name Role Phone Marleny Beebe MD Primary Care Provider + Kavin Tan PharmD Unavailable [phone] Reason for Visit * Reason Comments Med Refill Encounter Details Date Type Department Care Team (Late st Contact Info) Description 09/18/2022 Refill [facility] [address] [place] [address] [phone] Marleny Beebe MD [address] [place] [address] [phone] Social History Tobacco Use Types Packs/Day Years [...] Description 08/31/2025 10:30 AM EST Office Visit [facility] [address] [place] [address] [phone] Marleny Beebe MD [address] [place] [address] [phone] 09/07/2025 9:00 AM EST Medication Management [facility] [address] [place] [address] [phone] Kavin Tan, PharmD [address] [place] [address] documented as of this encounter Visit Diagnoses Not on filedocumented in this encounter Care Teams Safe Deposit Attendant Relationship Specialty Start Date End Date Marleny Beebe MD [address] [place] [phone] PCP - General Family Medicine 12/25/16 Kavin Tan, Ana [address] [place] [phone] Pharmacist Pharmacy 07/13/25 documented as of this encounter
--- OUTSIDE RECORDS SUMMARY | 2025-08-10 12:20 | XMS_ITS | Encounter Summary ---
Author Organization [employer] Address [address] [facility] [address] 7t [place] [address] Care Team Providers Care Radar Systems Engineer Name Role Phone Marleny Beebe MD Primary Care Provider + Kavin Tan PharmD Unavailable [phone] Encounter Details Date Type Department Care Team (Latest Contact Info) Description 08/10/2025 Travel Social History Tobacco Use Types Packs/Day [...] Description 08/31/2025 10:30 AM EST Office Visit [address] [address] Marleny Beebe MD [address] [place] [phone] 09/07/2025 9:00 AM EST Medication Management [address] [address] Kavin Tan, NahumD [address] [place] [phone] documented as of this encounter Visit Diagnoses Not on filedocumented in this encounter Care Teams Radar Systems Engineer Relationship Specialty Start Date End Date Marleny Beebe MD [address] [place] [phone] PCP - General Family Medicine 12/25/16 Kavin Tan, PharmD [address] [place] [phone] Pharmacist Pharmacy 07/13/25 documented as of this encounter
--- OUTSIDE RECORDS SUMMARY | 2025-08-10 12:20 | XMS_ITS | Encounter Summary ---
Author Organization [employer] Address [address] [place] [address] 7t [place] [address] Care Team Providers Care Clothespin Machine Operator Name Role Phone Marleny Beebe MD Primary Care Provider + Kavin Tan PharmD Unavailable [phone] Encounter Details Date Type Department Care Team (Late st Contact Info) Description 10/25/2022 Orders Only [address] [address] Jyothi Mccarthy LPN Social History Tobacco Use [...] Description 08/31/2025 10:30 AM EST Office Visit [address] [address] Marleny Beebe MD [address] [place] [phone] 09/07/2025 9:00 AM EST Medication Management [address] [address] Kavin Tan, PharmD [address] [place] [address] documented as of this encounter Visit Diagnoses Not on filedocumented in this encounter Care Teams Clothespin Machine Operator Relationship Specialty Start Date End Date Marleny Beebe MD [address] [place] [address] PCP - General Family Medicine 12/25/16 Kavin Tan, Ana [address] [place] [address] Pharmacist Pharmacy 07/13/25 documented as of this encounter
--- OUTSIDE RECORDS SUMMARY | 2025-08-10 12:20 | XMS_ITS | Encounter Summary ---
Author Organization [employer] Address [address] [place] [address] 7t [place] [address] Care Team Providers Care Engagement Mgr Name Role Phone Marleny Beebe MD Primary Care Provider + Kavin Tan PharmD Unavailable [phone] Reason for Visit * Reason Comments Med Refill Encounter Details Date Type Department Care Team (Late st Contact Info) Description 03/06/2023 Refill [facility] [address] [place] [address] [phone] Marleny Beebe MD [address] [place] [address] [phone] Controlled type 2 diabetes mellitus with hyperglycemia, with long-term current use of insulin ([facility]); Primary hypertension Social History Tobacco Use Types [...] Description 08/31/2025 10:30 AM EST Office Visit [facility] [address] [place] [address] [phone] Marleny Beebe MD [address] [place] [address] [phone] 09/07/2025 9:00 AM EST Medication Management [facility] [address] [place] [address] [phone] Kavin Tan, PharmD [address] [place] [phone] documented as of this encounter Visit Diagnoses Diagnosis Controlled type 2 diabetes mellitus with hyperglycemia, with long-term current use of insulin (HCC) Primary hypertension Unspecified essential hypertension documented in this encounter Care Teams Engagement Mgr Relationship Specialty Start Date End Date Marleny Beebe MD [address] [place] [address] PCP - General Family Medicine 12/25/16 Kavin Tan, PharmD [address] [place] [phone] Pharmacist Pharmacy 07/13/25 documented as of this encounter
--- OUTSIDE RECORDS SUMMARY | 2025-08-10 12:20 | XMS_ITS | Clinical Summary ---
Author Organization [employer] Address [address] [facility] [address] [place] [address] Care Team Providers Care Cone Tender Name Role Phone Marleny Beebe MD Primary Care Provider + Kavin Tan PharmD Unavailable [phone] Allergies No known active allergies Medications * This document contains information received from the source organization and may not represent a complete record from that organization. albuterol 108 (90 Base) MCG/ACT inhalerIndicatio ns:COPD with acute exacerbation (CMS/HCC) ([facility]) Inhale 2 puffs every 6 (six) hours if needed for wheezing. 18 g 023 Active fluticasone (Flonase) 50 MCG/ACT nasal sprayIndications :RSV (respiratory syncytial virus infection) Administer 1 spray into each nostril in the morning. 16 g 2 023 Active Arnuity Ellipta 200 MCG/ACT inhalerIndicatio ns:Mild [...] hyperglycemia, with long-term current use of insulin ([facility]) TAKE 1 TABLET BY MOUTH TWICE DAILY IN THE MORNING AND IN THE EVENING WITH MEALS 60 tablet 5 025 Active amLODIPine (Norvasc) 10 MG tabletIndication s:Primary hypertension Take 1 tablet (10 mg) by mouth at bedtime. 30 tablet 5 Active aspirin (Aspirin Low Dose) 81 MG EC tabletIndication s:At high risk for cardiovascular disease Take 1 tablet (81 mg) by mouth at bedtime. 90 tablet 025 Active chlorthalidone (Hygroton) 25 MG tablet Take 1 tablet (25 mg) by mouth in the morning. 30 tablet 3 025 Active citalopram (CeleXA) 20 MG tabletIndication s:Anxiety and depression Take 1 tablet (20 mg) by mouth in the morning. 90 tablet 1 025 Active lisinopril 10 MG tablet Take 1 tablet (10 mg) by mouth Once per day. 30 tablet 025 2025 Active Blood Glucose Monitoring Suppl (ONE TOUCH ULTRA 2) w/Device kitIndications:T ype 2 diabetes mellitus with hyperglycemia, with long-term current use of insulin ([facility]) 1 each with breakfast and with evening meal. 1 kit Active insulin pen needle (Pentips) 32G x 4 mm misc Use as instructed 100 each 025 Active Lancets (OneTouch Delica Plus [id number]) misc TEST BLOOD SUGAR THREE TIMES DAILY 100 each 025 Active glucose blood (OneTouch Ultra Test) test strip TEST BLOOD SUGAR THREE TIMES DAILY 100 strip Active Alcohol Swabs (Alcohol Pads) 70 % pads Use as directed on skin 100 each Active gabapentin (Neurontin) 600 MG tabletIndication s:Diabetic [...] Use to measure BP daily 1 kit 025 Active allopurinol (Zyloprim) 100 MG tablet TAKE 1 TABLET BY MOUTH TWICE DAILY IN THE MORNING AND IN THE EVENING 60 tablet 5 Active insulin degludec (Tresiba FlexTouch) 100 UNIT/ML injectionIndicat ions:Type 2 diabetes mellitus with hyperglycemia, with long-term current use of insulin (HCC) INJECT 14 UNITS SUBCUTANEOUSLY EVERY EVENING 15 mL 3 Active allopurinol (Zyloprim) 100 MG tablet TAKE 1 TABLET BY MOUTH TWICE DAILY IN THE MORNING AND IN THE EVENING 60 tablet 5 024 2024 Discontinued insulin degludec (Tresiba FlexTouch) 100 UNIT/ML injectionIndicat ions:Type 2 diabetes mellitus with hyperglycemia, with long-term current use of insulin (HCC) INJECT 20 UNITS SUBCUTANEOUSLY EVERY EVENING 15 mL 11 025 2024 Discontinued(R eodrewer (will not trigger notification to Pharmacy)) acetaminophen (Tylenol Extra Strength) 500 MG tablet Take 1 tablet (500 mg) by mouth every 8 (eight) hours if needed for moderate pain. 90 tablet 2024 clotrimazole (Lotrimin) 1 % cream Apply topically 2 times daily for 28 days. 30 g 025 2024 Active Problems Problem Noted Date Diagnosed Date Cognitive dysfunction 07/09/2025 Assessment & Plan (07/09/2025 9:09 AM EDT): It could be due to persistently high blood sugars over the past few months, uncontrolled diabetes and may be exacerbated depression after of his . It is very likely that he also has microvascular TRAY FILLER changes Will try to optimize chronic medical [...] CBC today. -Has appointment with a new Beverage Host on 12/31 at 10:30 am, information given [...] bone changes Order X-Ray Need margarette with english language learner teacher, referral had been sent previously Get X-ray and Fu with me Assessment & Plan (07/24/2023 11:27 AM EDT): Start Duricef x 1 wk and will fu with him then Counseled about soaking feet in warm water with Epson salt Avoid poking lesions Fu 1 wk Lamont of toe 07/24/2023 Assessment & Plan (09/18/2023 11:20 AM EST): Right second toe Pt need to reschedule appointment w/ english language learner teacher Assessment & Plan (07/24/2023 11:30 AM EDT): R toe Refer to english language learner teacher Will need custom made shoes Vitamin D deficiency 06/02/2023 Assessment & Plan (07/24/2023 11:06 AM EDT): Will start Vit-D supplementations x 6 month Encouraged outdoor exercise for sun exposure for 15 min /day Assessment & Plan (06/06/2023 8:54 AM EDT): Start Vit D supplementation x 6m Counseled re outdoor exercise COPD with acute exacerbation ([facility]) Assessment & Plan (06/06/2023 8:53 AM EDT): [...] airdroplets contact Stage 3 chronic kidney disease ([facility]) 05/22/2023 06/02/2023 Foot pain 07/08/2018 07/09/2025 Closed fracture of foot 11/03/201706/14 CKD (chronic kidney disease) stage 3, GFR 30-59 ml/min ([facility]) 05/03/2013 06/02/2023 Encounters * This document contains information received from the source organization and may not represent a complete record from that organization. Date Type Department Care Team Description 08/10/2025 Travel 07/27/2025 Telephone [facility] [address] [place] [phone] Marleny Beebe MD appt 07/20/2025 Telephone [facility] [address] [place] [address] Marleny Beebe MD FYI 07/15/2025 Telephone [facility] [address] [place] [address] [phone] Marleny Beebe MD Durable Medical Equipment (DME Script Diabetic Shoes([facility])) 07/15/2025 Telephone [facility] [address] [place] [phone] Marleny Beebe MD appt for 07/1807/14/2025 Telephone [facility] [address] [place] [phone] Marleny Beebe MD Appointment 07/14/2025 Refill [facility] [address] [place] [address], [place] [address] Marleny Beebe MD 07/14/2025 Telephone [facility] [address] [place] [phone] Marleny Beebe MD DME 07/13/2025 Telephone [facility] [address] [place] [phone] Marleny Beebe MD Insurance 07/13/2025 Travel 07/11/2025 Telephone [facility] [address] [place] [phone] Marleny Beebe MD VNA services 07/11/2025 Orders Only [facility] [address] [place] [phone] Marleny Beebe MD Benign essential hypertension (Primary Dx) 07/08/2025 Patient Outreach [facility] [address] [place] [phone] Marleny Beebe MD Care Coordination (CHW outreach for SDOH housing search-LVM ) 07/07/2025 3:45 PM EDT Office Visit [facility] [address] [place] [phone] Marleny Beebe MD Type 2 diabetes mellitus [...] unspecified whether traumatic 07/07/2025 Travel 07/06/2025 Telephone [facility] [address] [place] [phone] Marleny Beebe MD chart Prep 07/05/2025 Telephone [facility] [address] [place] [phone] Marleny Beebe MD Appt change 06/29/2025 Patient Outreach [address] [phone] Marleny Beebe MD Pre-visit Planning ((Unable to reach for PVP screening, LVM) to be completed in office ) 06/14/2025 3:20 PM EDT Office Visit [facility] [address] [address] Jasen Lamar MD Type 2 diabetes mellitus with hyperglycemia, with long-term current use of insulin (CMS/[facility]) (Primary Dx); Elevated glucose 06/14/2025 Travel 06/14/[address] [address] Marleny Beebe MD telephone call 06/09/[address] [address] Marleny Beebe MD telephone call 06/03/2025 2:40 PM EDT Office Visit [address] [address] Jasen Lamar MD Acute cough (Primary Dx); Wheezing; Chronic obstructive pulmonary disease, unspecified COPD type (CMS/HCC); Syncope and collapse 06/03/2025 Travel 06/02/2025 Patient Outreach [facility] [address] [place] [address] Marleny Beebe MD Transition Of Care (Tcm) (HDF unscheduled.) 06/02/[address] [address] Marleny Beebe MD Hospital Follow-up 05/27/2025 3:20 PM EDT Office Visit [facility] [address] [address] Judy Meraz NP Complete tear of rotator cuff, unspecified laterality, unspecified whether traumatic (Primary Dx); Chronic pain of left knee; Type 2 diabetes mellitus with hyperglycemia, with long-term current use of insulin (CMS/HCC); Benign essential hypertension; Moderate mixed hyperlipidemia not requiring statin therapy; PAD (peripheral artery disease) ([facility]); Recurrent major depressive episodes ([facility]); Diabetic polyneuropathy associated with type 2 diabetes mellitus ([facility]); Controlled type 2 diabetes mellitus with hyperglycemia, with long-term current use of insulin ([facility]); Primary hypertension; At high risk for cardiovascular disease; Anxiety and depression; Vertigo 05/27/2025 Travel from Last 3 Months Immunizations Immunization Administration [...] Sign Reading Time Taken Comments Blood Pressure 63/42 08/10/2025 9:27 AM EDT [facility] Pulse 71 08/10/2025 9:27 AM EDT Temperature 36 C (96.8 F) 07/07/2025 4:03 PM EDT Respiratory Rate 20 07/07/2025 4:03 PM EDT Oxygen Saturation 96% 06/14/2025 2:5 3 PM EDT Inhaled Oxygen Concentration - - Weight 98 kg (216 lb 2 oz) 07/07/2025 4 :03 PM EDT Height 170.2 cm (5' 7 ) 07/07/2025 4:03 PM EDT Body Mass Index 33.85 07/07/2025 4:03 PM EDT Plan of Treatment Upcoming Encounters Date Type Department Care Team (Late st Contact Info) Description 08/31/2025 10:30 AM EST Office Visit [facility] [address] [place] [phone] Marleny Beebe MD [address] [place] [phone] 09/07/2025 9:00 AM EST Medication Management [facility] [address] [place] [address] Kavin Tan, PharmD [address] [place] [address] Health Maintenance Due Date Last Done Comments [...] Procedure Name Priority Date/Time Associated Diagnosis Comments CREATINE KINASE, TOTAL Routine 08/10/2025 11:06 AM EDT Benign essential hypertension HIGH SENSITIVITY TROPONIN I Routine 08/10/2025 11:06 AM EDT Benign essential hypertension MAGNESIUM Routine 08/10/2025 11:06 AM EDT Benign essential hypertension BASIC METABOLIC PANEL Routine 08/10/2025 11:06 AM EDT Benign essential hypertension HEPATIC FUNCTION PANEL Routine 08/10/2025 11:06 AM EDT Benign essential hypertension CBC WITH AUTO DIFFERENTIAL Routine 08/10/2025 11:06 AM EDT Benign essential hypertension HOLD LT BLUE - POSSIBLE COAG Routine 08/10/2025 11:05 AM EDT Benign essential hypertension POCT GLUCOSE Routine 06/14/2025 3:07 PM EDT [...] Recently Relevant to Health Maintenance Results * High Sensitivity Troponin I (08/10/2025 11:06 AM EDT) [facility] TROPONIN I HIGH SENSITIVITY 10.1 <3.5 - 35.0 ng/L [facility] Comment:The [place] high sens itivity Troponin-I results should beused in conjunction with other diagnostic information suchas ECG, clinical observations and information, and patientsymptoms to aid in the diagnosis of SC. 08/10/2025 11:0 6 AM EDT 08/10/2025 11:13 AM EDT us Generic External Data Provider LAB BLOOD ORDERAB LES Final Result [facility] [address] [place] [phone] * (ABNORMAL) CBC auto differential (08/10/2025 11:06 AM EDT) Only the most recent of2 resultswithin the time period is included. [facility] White Blood Count 12.7(H) 4.8 - 10.8 X10*3/uL [facility] Red Blood Count 3.83(L) 4.60 - 5.80 X10*6/uL [facility] Hemoglobin 11.2(L) 14.0 - 18.0 g/dl [facility] Hematocrit 33.2(L) 42.0 - 52.0 % [facility] Mean Corpuscular Volume 86.7 80.0 - 98.0 fL [facility] Mean Corpuscular Hemoglobin 29.2 27.0 - 33.0 pg [facility] Mean Corpuscular HGB Conc 33.7 31.0 - 36.0 g/dl [facility] Red Cell Distribution Width 13.9 11.0 - 16.0 % [facility] Platelet Count 233 160 - 400 X10*3/uL [facility] Mean Platelet Volume 10.5 9.4 - 12.4 fL [facility] Neutrophils Percent Auto 61.7 45 - 73 % [facility] Imm Gran Pct Auto 0.9(H) 0.0 - 0.4 % [facility] Lymphocytes Percent Auto 26.9 20 - 40 % [facility] Monocytes Percent Auto 9.3 2 - 11 % [facility] Eosinophils Percent Auto 1.0 0 - 4 % [facility] Basophils Percent Auto 0.2 0 - 2 % [facility] NRBC Pct Auto 0.0 0.0 - 0.2 /100WBC [facility] Neutrophils Absolute Auto 7.8 2.0 - 8.3 x10*3/uL [facility] Imm Gran Abs Auto 0.11(H) 0.00 - 0.03 X10*3/uL [facility] Lymphocytes Absolute Auto 3.4 1.2 - 4.9 X10*3/uL [facility] Monocytes Absolute Auto 1.2 0.1 - 1.2 X10*3/uL [facility] Eosinophils Absolute Auto 0.1 0.0 - 0.4 X10*3/uL [facility] Basophils Absolute Auto 0.0 0.0 - 0.2 X10*3/uL [facility] NRBC Abs Auto 0.000 0.0 - 0.012 X10*3/uL [facility] 08/10/2025 11:0 6 AM EDT 08/10/2025 11:12 AM EDT us Generic External Data Provider LAB BLOOD ORDERAB LES Final Result [facility] [address] [place] [phone] [phone] * (ABNORMAL) Magnesium (08/10/2025 11:06 AM EDT) Magnesium 1.5(L) 1.6 - 2.6 mg/dL [facility] 08/10/2025 11:0 6 AM EDT 08/10/2025 11:12 AM EDT us Generic External Data Provider LAB BLOOD ORDERAB LES Final Result Performing Organization Address City/[facility]/ZIP Co de Phone Number [facility] [address] [place] [phone] * Creatine Kinase, Total (08/10/2025 11:06 AM EDT) Creatine Kinase Total 109 38 - 174 U/L [facility] 08/10/2025 11:0 6 AM EDT 08/10/2025 11:12 AM EDT us Generic External Data Provider LAB BLOOD ORDERAB LES Final Result Performing Organization Address [facility] Co de Phone Number [facility] [address] [place] [phone] * Hepatic Function Panel (08/10/2025 11:06 AM EDT) Bilirubin, Total 0.4 0.0 - 1.0 mg/dL [facility] Bilirubin, Direct 0.1 0.0 - 0.5 mg/dL [facility] Aspartate Amino Transferase 21 5 - 37 U/L [facility] Alanine Aminotransferase 19 0 - 40 U/L [facility] Total Protein 6.7 6.5 - 8.0 g/dL [facility] Albumin Level 3.8 3.5 - 5.0 g/dL [facility] Alkaline Phosphatase 67 39 - 117 U/L [facility] 08/10/2025 11:0 6 AM EDT 08/10/2025 11:12 AM EDT us Generic External Data Provider LAB BLOOD ORDERAB LES Final Result Performing Organization Address [facility]/ZIP Co de Phone Number [facility] [address] [place] [phone] * (ABNORMAL) Basic Metabolic Panel (08/10/2025 11:06 AM EDT) Sodium 133(L) 135 - 145 mmol/L [facility] Potassium 4.1 3.3 - 5.1 mmol/L [facility] Chloride 100 96 - 108 mmol/L [facility] Carbon Dioxide 22 22 - 29 mmol/L [facility] Anion Gap 15 12 - 20 [facility] Urea Nitrogen (BUN) 70(H) 9 - 16 mg/dL [facility] Creatinine, Serum 3.91(H) 0.5 - 1.4 mg/dL [facility] Creatinine Clr Calc Pharmacy 22.3 [facility] Comment:eGFR (calculated fro m the MDRD study equation) and eCrCl(calculated from the Cockcroft-Gault equation) are based ondifferent parameters and may not yield comparable results.If eCrCl result is absurd, please check patient'sheight/weight. Estimated Glomerular Filt Rate 15 [facility] Comment:Chronic Kidney Disea se: Estimated GFR < 60 mL/min/[id number] Kidney Disease: Estimated GFR < 15 mL/min/1.73m2 Glucose 148(H) 60 - 115 mg/dL [facility] Calcium 7.9(L) 8.4 - 10.2 mg/dL [facility] 08/10/2025 11:0 6 AM EDT 08/10/2025 11:12 AM EDT us Generic External Data Provider LAB BLOOD ORDERAB LES Final Result [facility] [address] [place] [address] [phone] * HOLD LT BLUE - POSSIBLE COAG (08/10/2025 11:05 AM EDT) Hold Lt Blue - Possible Coag SEE NOTE [facility] Comment:Specimen will be hel d untested for 4 hours. Call Hematologyif testing is desired. 08/10/2025 11:0 5 AM EDT 08/10/2025 11:16 AM EDT Generic External Data Provider LAB BLOOD ORDERAB LES Final Result Performing Organization Address [facility]/ZIP Co de Phone Number [facility] [address] [place] [address] [phone] * (ABNORMAL) POCT glucose manually resulted (06/14/2025 3:07 PM EDT) Only the most recent of2 resultswithin the time period is included. Pathologist [facility] Glucose Blood, POC 224(A) 60 - 200 mg/dL Blood Capillary blood specimen / Unknown 06/14/2025 3:07 PM EDT Jasen Name POINT OF CARE TEST ENTER/EDIT OR DERABLES Final Result * (ABNORMAL) POCT A1c (06/14/2025 3:04 PM EDT) Pathologist [facility] Hemoglobin A1C 8.3(A) 4.0 - 5.7 % Blood 06/14/2025 3:04 PM EDT Jasen Name POINT OF CARE TEST ENTER/EDIT OR DERABLES Final Result * Influenza B (ID NOW Rapid Molecular) (06/03/2025 2:48 PM EDT) Pathologist [facility] Influenza B Negative Negative, Indeterminate [facility] Swab 06/03/2025 2:48 PM EDT Jasen Name POINT OF CARE TEST ENTER/EDIT OR DERABLES Final Result Performing Organization Address City/[facility]/ZIP Co de Phone Number [facility] [address] [place] [address] [phone] * Influenza A (ID NOW Rapid Molecular) (06/03/2025 2:48 PM EDT) Influenza A Negative Negative, Indeterminate [facility] Swab 06/03/2025 2:48 PM EDT us Jasen Lamar MD POINT OF CARE TEST ENTER/EDIT OR DERABLES Final Result Performing Organization Address City/[facility]/ZIP Co de Phone Number [facility] [address] [place] [phone] [phone] * POCT Rapid COVID Ag (06/03/2025 2:48 PM EDT) Rapid COVID Ag Negative [facility] Swab 06/03/2025 2:48 PM EDT us Jasen Lamar MD POINT OF CARE TEST ENTER/EDIT OR DERABLES Final Result Performing Organization Address [facility] Co de Phone Number [facility] [address] [place] [phone] * (ABNORMAL) Comprehensive Metabolic Panel (05/27/2025 4:11 PM EDT) Sodium 138 135 - 145 mmol/L [facility] Potassium 5.0 3.3 - 5.1 mmol/L [facility] Comment:Mild Hemolysis.Inter pret result with caution Chloride 103 96 - 108 mmol/L [facility] Carbon Dioxide 23 22 - 29 mmol/L [facility] Anion Gap 17 12 - 20 [facility] Urea Nitrogen (BUN) 17(H) 9 - 16 mg/dL [facility] Creatinine, Serum 1.01 0.5 - 1.4 mg/dL [facility] Estimated Glomerular Filt Rate >60 [facility] Comment:Chronic Kidney Disea se: Estimated GFR < 60 mL/min/1.02q7Krwmyc Kidney Disease: Estimated GFR < 15 mL/min/1.73m2 Glucose 138(H) 60 - 115 mg/dL [facility] Calcium 8.5 8.4 - 10.2 mg/dL [facility] Bilirubin, Total 0.4 0.0 - 1.0 mg/dL [facility] Aspartate Amino Transferase 36 5 - 37 U/L [facility] Comment:Mild Hemolysis.Inter pret result with caution Alanine Aminotransferase 18 0 - 40 U/L [facility] Total Protein 7.7 6.5 - 8.0 g/dL [facility] Comment:Mild Hemolysis.Inter pret result with caution Albumin Level 4.0 3.5 - 5.0 g/dL [facility] Alkaline Phosphatase 72 39 - 117 U/L [facility] Blood Venous blood specimen / Unknown 05/27/2025 4:11 PM EDT 05/27/2025 5:41 PM EDT us Judy Meraz [facility] LAB BLOOD ORDERABLES Final Resul t [facility] [address], [place] [phone] * Lipid Panel with Reflex to Direct LDL (05/23/2023 11:16 AM EDT) Triglycerides 91 mg/dL [facility] Comment:Desirable Triglyceri de: less than 150 mg/dLBorderline High Triglyceride 150-199 mg/dLHigh Triglyceride: 200-499 mg/dLVery High Triglyceride: greater than or equal to 5OO mg/dL Cholesterol 129 mg/dL [facility] Comment:Desirable Cholestero l: less than 200 mg/dLBorderline High Cholesterol: 200-239 mg/dLHigh Cholesterol: greater than 239 mg/dL LDL Cholesterol Calculated 73 mg/dl [facility] Comment:Desirable LDL: less than 100 mg/dLNear Optimal/Above Optimal LDL: 110- 129 mg/dLBorderline High LDL: 130-159 mg/dLHigh LDL: 160-189 mg/dLVery High LDL: greater than or equal to 190 mg/dL HDL Cholesterol 38 mg/dL [facility] Comment:Desirable HDL: great er than 40 mg/dL Note: This HDL assay may give artificially low results in patients with liver disease. Blood 05/23/2023 11:1 6 AM EDT 05/23/2023 1:49 PM EDT Marleny Beebe MD LAB BLOOD ORDERABLES Fin al Result Performing Organization Address [facility] Co de Phone Number [facility] [address] [place] [phone] * Hepatitis Panel, General (05/23/2023 11:16 AM EDT) Hepatitis A IgM Nonreactive Nonreactive [facility] Comment:IgM antibodies to COTTO V not detected; does not exclude earlyacute or recovered HAV infection. ~Hepatitis B Surface Antibody REACTIVE Nonreactive [facility] Comment:REACTIVE: > 11.99 mI U/mL Hepatitis B Core Antibody Reactive Nonreactive [facility] Comment:Presumptive evidence of anti-HBc. Hepatitis C Antibody Nonreactive Nonreactive [facility] Comment:Antibodies to HCV no t detected; does not exclude early acuteHCV infection. Hepatitis B Surface Ag Negative Negative [facility] Blood 05/23/2023 11:1 6 AM EDT 05/23/2023 1:49 PM EDT Marleny Beebe MD LAB BLOOD ORDERABLES Fin al Result Performing Organization Address [facility] Phone Number [facility] [address] [place] [phone] * Albumin, Random Urine W/Creatinine (05/23/2023 11:15 AM EDT) Creatinine, Urine 68.04 mg/dL [facility] Microalbumin Urine 12.0 mg/L [facility] Microalbum Creatinine Ratio Ur 17.6 ug/mg cr [facility] Comment:Albumin/Creatinine R atio Reference Ranges: Normal: < 30 ug/mg creatinine Microalbuminuria: 30 - 300 ug/mg creatinineClinical Albuminuria: > 300 ug/mg creatinine 05/23/2023 11:1 5 AM EDT 05/23/2023 4:32 PM EDT Marleny Beebe MD LAB URINE ORDERABLES Fin al Result [facility] [address] [place] [phone] [phone] from Last 3 Months or Most Recently Relevant to Health Maintenance Insurance [facility] [employer] FDC OPTIONS (HMO D-SNP) DENTAL - HSN FULL (MEDICAID) Care Teams Cone Tender Relationship Specialty Start Date End Date Marleny Beebe MD [address] [place] [phone] PCP - General Family Medicine 12/25/16 Kavin Tan, PharmD [address] [place] [phone] Pharmacist Pharmacy 07/13/25
--- OUTSIDE RECORDS SUMMARY | 2025-08-10 12:20 | XMS_ITS | Encounter Summary ---
Author Organization [employer] Address [address] [place] [address] Care Team Providers Care Industrial Chemist Name Role Phone Marleny Beebe MD Primary Care Provider + Kavin Tan PharmD Unavailable [phone] Encounter Details Date Type Department Care Team (Late st Contact Info) Description 07/11/2025 Orders Only [facility] [address] [place] [address] Marleny Beebe MD [address] [place], [place] [phone] Benign essential hypertension (Primary Dx) Social History [...] Description 08/31/2025 10:30 AM EST Office Visit [facility] [address] [place] [phone] Marleny Beebe MD [address] [place] [address] 09/07/2025 9:00 AM EST Medication Management [facility] [address] [place] [phone] Kavin Tan, PharmD [address] [place] [address] documented as of this encounter Procedures Procedure Name Priority Date/Time Associated Diagnosis Comments HIGH SENSITIVITY TROPONIN I Routine 08/10/2025 11:06 AM EDT Benign essential hypertension CBC WITH AUTO DIFFERENTIAL Routine 08/10/2025 11:06 AM EDT Benign essential hypertension MAGNESIUM Routine 08/10/2025 11:06 AM EDT Benign essential hypertension CREATINE KINASE, TOTAL Routine 08/10/2025 11:06 AM EDT Benign essential hypertension HEPATIC FUNCTION PANEL Routine 08/10/2025 11:06 AM EDT Benign essential hypertension BASIC METABOLIC PANEL Routine 08/10/2025 11:06 AM EDT Benign essential hypertension HOLD LT BLUE - POSSIBLE COAG Routine 08/10/2025 11:05 AM EDT Benign essential hypertension documented in this encounter Results * Creatine Kinase, Total (08/10/2025 11:06 AM EDT) Creatine Kinase Total 109 38 - 174 U/L [facility] 08/10/2025 11:0 6 AM EDT 08/10/2025 11:12 AM EDT us Generic External Data Provider LAB BLOOD ORDERAB LES Final Result [facility] [address] [place] [phone] * High Sensitivity Troponin I (08/10/2025 11:06 AM EDT) TROPONIN I HIGH SENSITIVITY 10.1 <3.5 - 35.0 ng/L [facility] Comment:The [place] high sens itivity Troponin-I results should beused in conjunction with other diagnostic information suchas ECG, clinical observations and information, and patientsymptoms to aid in the diagnosis of NM. 08/10/2025 11:0 6 AM EDT 08/10/2025 11:13 AM EDT us Generic External Data Provider LAB BLOOD ORDERAB LES Final Result Performing Organization Address City/[facility]/ZIP Co de Phone Number [facility] [address] [place] [phone] * (ABNORMAL) Magnesium (08/10/2025 11:06 AM EDT) Magnesium 1.5(L) 1.6 - 2.6 mg/dL [facility] 08/10/2025 11:0 6 AM EDT 08/10/2025 11:12 AM EDT Generic External Data Provider LAB BLOOD ORDERAB LES Final Result Performing Organization Address [facility] Co de Phone Number [facility] [address] [place] [phone] * (ABNORMAL) Basic Metabolic Panel (08/10/2025 11:06 AM EDT) Sodium 133(L) 135 - 145 mmol/L [facility] Potassium 4.1 3.3 - 5.1 mmol/L [facility] Chloride 100 96 - 108 mmol/L [facility] Carbon Dioxide 22 22 - 29 mmol/L [facility] Anion Gap 15 12 - 20 [facility] Urea Nitrogen (BUN) 70(H) 9 - 16 mg/dL [facility] Creatinine, Serum 3.91(H) 0.5 - 1.4 mg/dL [facility] Creatinine Clr Calc Pharmacy 22.3 [facility] Comment:eGFR (calculated fro m the MDRD study equation) and eCrCl(calculated from the Cockcroft-Gault equation) are based ondifferent parameters and may not yield comparable results.If eCrCl result is absurd, please check patient'sheight/weight. Estimated Glomerular Filt Rate 15 [facility] Comment:Chronic Kidney Disea se: Estimated GFR < 60 mL/min/1.93o6Xpeehu Kidney Disease: Estimated GFR < 15 mL/min/1.73m2 Glucose 148(H) 60 - 115 mg/dL [facility] Calcium 7.9(L) 8.4 - 10.2 mg/dL [facility] 08/10/2025 11:0 6 AM EDT 08/10/2025 11:12 AM EDT Generic External Data Provider LAB BLOOD ORDERAB LES Final Result Performing Organization Address [facility]/ZIP Co de Phone Number [facility] [address] [place] [phone] * Hepatic Function Panel (08/10/2025 11:06 AM EDT) Bilirubin, Total 0.4 0.0 - 1.0 mg/dL [facility] Bilirubin, Direct 0.1 0.0 - 0.5 mg/dL [facility] Aspartate Amino Transferase 21 5 - 37 U/L [facility] Alanine Aminotransferase 19 0 - 40 U/L [facility] Total Protein 6.7 6.5 - 8.0 g/dL [facility] Albumin Level 3.8 3.5 - 5.0 g/dL [facility] Alkaline Phosphatase 67 39 - 117 U/L [facility] 08/10/2025 11:0 6 AM EDT 08/10/2025 11:12 AM EDT Generic External Data Provider LAB BLOOD ORDERAB LES Final Result Performing Organization Address [facility]/ZIP Co de Phone Number [facility] [address] [place] [phone] * (ABNORMAL) CBC auto differential (08/10/2025 11:06 AM EDT) White Blood Count 12.7(H) 4.8 - 10.8 X10*3/uL [facility] Red Blood Count 3.83(L) 4.60 - 5.80 X10*6/uL [facility] Hemoglobin 11.2(L) 14.0 - 18.0 g/dl [facility] Hematocrit 33.2(L) 42.0 - 52.0 % [facility] Mean Corpuscular Volume 86.7 80.0 - 98.0 fL [facility] Mean Corpuscular Hemoglobin 29.2 27.0 - 33.0 pg [facility] Mean Corpuscular HGB Conc 33.7 31.0 - 36.0 g/dl [facility] Red Cell Distribution Width 13.9 11.0 - 16.0 % [facility] Platelet Count 233 160 - 400 X10*3/uL [facility] Mean Platelet Volume 10.5 9.4 - 12.4 fL [facility] Neutrophils Percent Auto 61.7 45 - 73 % [facility] Imm Gran Pct Auto 0.9(H) 0.0 - 0.4 % [facility] Lymphocytes Percent Auto 26.9 20 - 40 % [facility] Monocytes Percent Auto 9.3 2 - 11 % [facility] Eosinophils Percent Auto 1.0 0 - 4 % [facility] Basophils Percent Auto 0.2 0 - 2 % [facility] NRBC Pct Auto 0.0 0.0 - 0.2 /100WBC [facility] Neutrophils Absolute Auto 7.8 2.0 - 8.3 x10*3/uL [facility] Imm Gran Abs Auto 0.11(H) 0.00 - 0.03 X10*3/uL [facility] Lymphocytes Absolute Auto 3.4 1.2 - 4.9 X10*3/uL [facility] Monocytes Absolute Auto 1.2 0.1 - 1.2 X10*3/uL [facility] Eosinophils Absolute Auto 0.1 0.0 - 0.4 X10*3/uL [facility] Basophils Absolute Auto 0.0 0.0 - 0.2 X10*3/uL [facility] NRBC Abs Auto 0.000 0.0 - 0.012 X10*3/uL [facility] 08/10/2025 11:0 6 AM EDT 08/10/2025 11:12 AM EDT us Generic External Data Provider LAB BLOOD ORDERAB LES Final Result Performing Organization Address [facility] Co de Phone Number [facility] [address] [place] [phone] * HOLD LT BLUE - POSSIBLE COAG (08/10/2025 11:05 AM EDT) Hold Lt Blue - Possible Coag SEE NOTE [facility] Comment:Specimen will be hel d untested for 4 hours. Call Hematologyif testing is desired. 08/10/2025 11:0 5 AM EDT 08/10/2025 11:16 AM EDT us Generic External Data Provider LAB BLOOD ORDERAB LES Final Result Performing Organization Address [facility] de Phone Number [facility] [address] [place] [phone] documented in this encounter Visit Diagnoses Diagnosis Benign essential hypertension- Primary Essential hypertension, benign documented in this encounter Care Teams Industrial Chemist Relationship Specialty Start Date End Date Marleny Beebe MD [address] [place] [address] PCP - General Family Medicine 12/25/16 Kavin Tan, Ana [address] [place] [address] Pharmacist Pharmacy 07/13/25 documented as of this encounter
--- OUTSIDE RECORDS SUMMARY | 2025-08-10 12:20 | XMS_ITS | Encounter Summary ---
Author Organization [employer] Address [address] [place] [address] [address] [place] [address] Care Team Providers Care Director University Name Role Phone Marleny Beebe MD Primary Care Provider + Kavin Tan PharmD Unavailable [phone] Reason for Visit * Reason Comments Med Refill Encounter Details Date Type Department Care Team (Late st Contact Info) Description 01/29/2023 Refill [facility] [address] [place] [address] [phone] Marleny Beebe MD [address] [place] [address] [phone] Controlled type 2 diabetes mellitus with hyperglycemia, with long-term current use of insulin ([facility]); Primary hypertension Social History Tobacco Use Types [...] EST Office Visit [facility] [address] [place] [address] [phone] Marleny Beebe MD [address] [place] [address] [phone] 09/07/2025 9:00 AM EST Medication Management [facility] [address] [place] [address] [phone] Kavin Tan, PharmD [address] [place] [phone] documented as of this encounter Visit Diagnoses Diagnosis Controlled type 2 diabetes mellitus with hyperglycemia, with long-term current use of insulin (HCC) Primary hypertension Unspecified essential hypertension documented in this encounter Care Teams Director University Relationship Specialty Start Date End Date Marleny Beebe MD [address] [place] [phone] PCP - General Family Medicine 12/25/16 Kavin Tan, PharmD [address] [place] [phone] Pharmacist Pharmacy 07/13/25 documented as of this encounter
[2025-08-10 12:35] LABS: NT Pro B Type Natriuretic Pept 180.3 pg/mL (<300)
--- NOTE | 2025-08-10 13:30 | PC.NURSE ---
pt returned from CT scan, notably sleepy- pupils are pinpoint, pt continues to be hypotensive, ivf have completed, notified provider, pt to have bladder scan performed.
[2025-08-10 13:56] LABS: Appearance Urine Clear; Glucose Urine UA Negative (Negative); PH 5.0 (5.0-9.0); Specific Gravity - Urine 1.015 (1.005-1.025); UMIC TRIGGER UACC YES
[2025-08-10 14:08] LABS: UACC Culture Trigger YES
[2025-08-10 14:10] LABS: Cannabinoid Screen Urine Not Detected (Not Detect)
[2025-08-10 14:57] LABS: Troponin-I High Sensitivity 6.6 ng/L (<3.5-35.0)
[2025-08-10] MEDS: Hydrocortisone Sod Succ/PF 100 MG VIAL IVPUSH (15:28)
[2025-08-10] MEDS: Albumin Human 25 % 100 ML 133.33 ML IV ×2 (15:28→16:27)
--- NOTE | 2025-08-10 16:58 | PM.IMHP ---
History of Present Illness Date of Service: 08/10/25 Chief Complaint: Dizziness 74-year-old male, with a past medical history of hyperlipidemia, gout, arthritis, diabetes, and hypertension, who presents to the emergency department with concerns of dizziness since yesterday. Patient that he was eating lunch and noticed that he was having increased lightheadedness especially with position changes. He also reports that he has had back pain and neck pain which is chronic for him however states that this has worsened. He states when he gets episodes of worsening neck and back pain the dizziness worsens. He reported that he had had not been drinking as much fluids as he should be. He had denied chest pain, shortness breath, nausea, vomiting, diarrhea he reports that he has not been taking any of his medications in the last 2 days but then stated that he took a pain medication last night but could not say which one. In the ER, creatinine was noted to be 3.91, UA negative, blood pressure as low as 55/31. He did receive albumin in the ER and 3 L of IV fluids. His bladder scan in the ER which was essentially negative. No obstruction noted on abdominal CT nor hydronephrosis. Patient is awake and alert. Blood pressure is improving. He will be admitted for further management and treatment of UTI and OLIVIA. Review of Systems Review of Systems: Denies any recent fever chills or decrease in appetite respiratory denies any shortness of breath or cough cardiovascular denied chest pain gastrointestinal denies any dysphagia abdominal pain nausea vomiting or diarrhea genitourinary denies any dysuria frequency or hematuria musculoskeletal denies any joint pain or swelling neuropsych denies any weakness or seizures all other systems reviewed are negative [facility] Medical History (Updated 08/10/25 @ 17:04 by DANNIELLE Glass) HLD (hyperlipidemia) Gout Arthritis Diabetes HTN (hypertension) Surgical History History of bowel resection Hx of colonoscopy Social History Alcohol intake: former Patient Tobacco Use Status: Former Tobacco user service: No Meds Allergies Allergy/AdvReac Type Severity Reaction Status Date / Time No Known Allergies Allergy Verified 08/10/25 09:53 Active Medications: Current Medications Albumin Human (Kedbumin 25 %) 100 mls @ 133.333 mls/hr IV Q1H THEA Stop: 08/10/25 16:59 Last Admin: 08/10/25 16:27 Dose: 133.33 mls/hr Home Medications ?Medication ?Instructions ?Recorded ?Confirmed ?Last Taken ?Type albuterol sulfate 90 mcg/actuation 2 puff inhalation Q4-6H PRN 07/01/23 07/20/25 Unknown History aerosol inhaler (Ventolin HFA) Shortness Of Breath Or Wheezing allopurinol 100 mg tablet 100 mg PO BID 07/01/23 07/20/25 12/14/23 History amlodipine 10 mg tablet 10 mg PO QPM 07/01/23 07/20/25 12/14/23 History aspirin 81 mg tablet,delayed 81 mg PO QPM 07/01/23 07/20/25 12/14/23 History release atorvastatin 10 mg tablet 10 mg PO QPM 07/01/23 07/20/25 12/14/23 History blood sugar diagnostic (OneTouch #10 ea 07/01/23 07/20/25 Unknown History Ultra Test strips) citalopram 20 mg tablet 20 mg PO QAM 07/01/23 07/20/25 12/14/23 History gabapentin 600 mg tablet 600 mg PO BID 07/01/23 07/20/25 12/14/23 History metformin 1,000 mg tablet 1,000 mg PO BID 07/01/23 07/20/25 12/14/23 History montelukast 10 mg tablet 10 mg PO QPM 07/01/23 07/20/25 12/14/23 History acetaminophen 500 mg tablet 500 mg PO Q6H PRN mild pain 12/14/23 07/20/25 Unknown History fluticasone propionate 50 1 spray intranasal DAILY PRN 12/14/23 07/20/25 Unknown History mcg/actuation nasal Allergy Symptoms spray,suspension insulin detemir U-100 100 unit/mL 10 unit subcut BEDTIME 12/15/23 07/20/25 12/14/23 History (3 mL) subcutaneous pen (Levemir FlexPen) ertapenem 1 gram solution for 1 g IM DAILY 01/02/24 07/20/25 Unknown History injection chlorthalidone 25 mg tablet 25 mg PO DAILY 08/10/25 08/10/25 Unknown History clotrimazole 1 % topical cream 1 appl topical BID 08/10/25 Unknown History fluticasone furoate 200 1 inh inhalation QAM 08/10/25 Unknown History mcg/actuation blister powder for inhalation (Arnuity Ellipta) insulin degludec 100 unit/mL (3 20 unit subcut QPM 08/10/25 Unknown History mL) subcutaneous pen (Tresiba FlexTouch U-100 insulin) lisinopril 10 mg tablet 10 mg PO BEDTIME 08/10/25 Unknown History Physical Exam Vital Signs and Narrative: Vital Signs: Last Vital Signs Temp 100.1 F 08/10/25 15:07 Pulse 59 08/10/25 14:18 Resp 13 08/10/25 14:18 BP 92/45 L 08/10/25 14:18 Pulse Ox 98 08/10/25 14:18 O2 Del Method Room Air 08/10/25 14:18 BMI result Body Mass Index 44.4 Appearing in no acute distress head is normocephalic atraumatic eyes pupils are PERRLA sclera is anicteric mouth throat mucous membranes are intact and moist neck is supple no lymphadenopathy, no JVD noted lung sounds are clear to auscultation heart regular rate rhythm, clear S1, S2 positive bowel sounds, abdomen is soft, nontender neuro patient is alert x3, no focal deficits Results Labs 08/10/25 11:06 08/10/25 11:06 Labs: Laboratory Results - last 24 hr 08/10/25 08/10/25 08/10/25 11:05 11:06 12:22 MCV 86.7 MCH 29.2 MCHC 33.7 RDW 13.9 Plt Count 233 MPV 10.5 Immature Gran % (Auto) 0.9 H Neut % (Auto) 61.7 Lymph % (Auto) 26.9 Cache % (Auto) 9.3 Eos % (Auto) 1.0 Baso % (Auto) 0.2 Lymph # (Auto) 3.4 Cache # (Auto) 1.2 Eos # (Auto) 0.1 Baso # (Auto) 0.0 Abs Immat Gran (auto) 0.11 H Absolute Neuts (auto) 7.8 Absolute Nucleated RBC 0.000 Nucleated RBC % (auto) 0.0 Hold Blue Top SEE NOTE Anion Gap 15 Estim Creat Clear Calc 22.3 Estimated GFR 15 Random Glucose 148 H Lactic Acid 1.7 Calcium 7.9 L D Magnesium 1.5 L Total Bilirubin 0.4 Direct Bilirubin 0.1 AST 21 ALT 19 Alkaline Phosphatase 67 Total Creatine Kinase 109 Troponin I High Sens 10.1 D NT-Pro-B Natriuret Pep 180.3 Total Protein 6.7 Albumin 3.8 Urine Color Urine Appearance Urine pH Ur Specific [place]ankin Urine Protein Urine Glucose (UA) Urine Ketones Urine Blood Urine Nitrite Ur Leukocyte Esterase Urine RBC Urine WBC Ur Squamous Epith Cells Urine Bacteria Hyaline Casts Urine Opiates Screen Ur Buprenorphine Scrn Ur Oxycodone Screen Urine Methadone Screen Urine Fentanyl Screen Ur Barbiturates Screen Ur Phencyclidine Scrn Ur Amphetamines Screen U Benzodiazepines Scrn Urine Cocaine Screen U Marijuana (THC) Screen 08/10/25 08/10/25 13:49 14:23 MCV MCH MCHC RDW Plt Count MPV Immature Gran % (Auto) Neut % (Auto) Lymph % (Auto) Cache % (Auto) Eos % (Auto) Baso % (Auto) Lymph # (Auto) Cache # (Auto) Eos # (Auto) Baso # (Auto) Abs Immat Gran (auto) Absolute Neuts (auto) Absolute Nucleated RBC Nucleated RBC % (auto) Hold Blue Top Anion Gap Estim Creat Clear Calc Estimated GFR Random Glucose Lactic Acid Calcium Magnesium Total Bilirubin Direct Bilirubin AST ALT Alkaline Phosphatase Total Creatine Kinase Troponin I High Sens 6.6 NT-Pro-B Natriuret Pep Total Protein Albumin Urine Color Yellow Urine Appearance Clear Urine pH 5.0 Ur Specific Lankin 1.015 Urine Protein Trace Urine Glucose (UA) Negative Urine Ketones Trace Urine Blood Negative Urine Nitrite Negative Ur Leukocyte Esterase Small (1+) H Urine RBC 0-2 Urine WBC 6-10 H Ur Squamous Epith Cells 0-2 Urine Bacteria None Seen Hyaline Casts 11-20 Urine Opiates Screen Not Detected Ur Buprenorphine Scrn Not Detected Ur Oxycodone Screen Not Detected Urine Methadone Screen Not Detected Urine Fentanyl Screen Not Detected Ur Barbiturates Screen Not Detected Ur Phencyclidine Scrn Not Detected Ur Amphetamines Screen Not Detected U Benzodiazepines Scrn Not Detected Urine Cocaine Screen Not Detected U Marijuana (THC) Screen Not Detected Imaging Radiologist's Impressions: Impressions Chest X-Ray 08/10/25 12:38 IMPRESSION: No acute airspace disease. Electronically signed by: Vasiliy Mcdonald MD 08/10/2025 12:55 PM EDT Abdomen/Pelvis CT 08/10/25 13:05 IMPRESSION: No hydronephrosis or renal lithiasis. 2 ventral hernias containing bowel, as detailed above. No evidence of obstruction. Fleischner guidelines were followed. Electronically signed by: Lauro Hopkins MD 08/10/2025 01:49 PM EDT RP Head CT 08/10/25 13:05 IMPRESSION: No acute intracranial abnormality. Electronically signed by: Braydon Cassidy MD 08/10/2025 01:42 PM EDT RP Assessment and Plan (1) Orthostatic hypotension: Status: Acute Plan 74 year old man admitted with OLIVIA and orthostatic hypotension secondary to poor po intake Orthostatic hypotension Likely secondary to dehydration and poor p.o. intake No infectious source Status post 3 L of IV fluids in the ER and albumin Continue IV fluids Slow position changes Hold all antihypertensive medications at this time OLIVIA Likely secondary hypoperfusion from hypotension IV fluids Abdominal CT not showing obstruction or hydronephrosis Consider Nephrology consultation if creatinine does not improve Leukocytosis. Mild sign no infectious source noted maybe reactive Normocytic anemia Stable H&H, no need for blood transfusion Hypertension hold all antihypertensives medications at this time and restart as blood pressure allows Diabetes mellitus type 2 Sliding scale, ADA diet, hold metformin due to OLIVIA Hyperlipidemia Continue aspirin and statin Gout Hold allopurinol Anxiety Continue citalopram DVT prophylaxis with heparin Full code Medication reconciliation is pending Quality Stroke Does the patient have a stroke diagnosis?: No VTE Prior VTE?: No VTE Risk Level:: Medical - moderate - high VTE Device Contraindication: Treatment Not Indicated VTE Drug Contraindication: N/A - Med Ordered
[2025-08-10] MEDS: Lactated Ringers 1,000 ML 100 ML IVCONT (17:59)
--- NOTE | 2025-08-10 18:24 | PC.NURSE ---
pts bp has again dropped, Dr. shen was notified.
--- NOTE | 2025-08-10 18:52 | PHA.MEDREC ---
Addendum entered by Lizzette Inman RPh 08/10/25 19:17: Reviewed by [facility] Original Note: Pharmacy Consult ? Medication Reconciliation Pharmacy has completed the medication reconciliation. Spoke to patient to confirm med list. Patient was a poor historian. Patient was able to confirm Tresiba Flextouch 3 units at bedtime , however claims has Tresiba 14 units. Utilized list [facility] to confirm med list.
--- NOTE | 2025-08-10 19:03 | PM.EVENT ---
Event Note Date of Service: 08/10/25 Event Note: Patient is a 74 Y M w/ hypertension, hyperlipidemia, diabetes mellitus, presenting to ED on 08/10 w/ lightheadedness associated w/ position changes, and poor PO intake, otherwise denies any other signs/symptoms; in ED, patient found to be hypotensive, though slowly improved; ED work-up demonstrating acute renal insufficiency, otherwise grossly unremarkable; admitted to medicine; later, patient developed worsening hypotension N: lightheadedness, to closely monitor CV: hypotension, unclear etiology, may be d/t poor PO intake, IVF, norepinephrine gtt, wean as tolerated, follow-up TSH, random cortisol, and lactic R: no acute issues GI: diabetic diet : acute renal insufficiency, to monitor renal indices/electrolytes H: no acute issues; chemical DVT prophylaxis ID: empiric ceftriaxone E: diabetes mellitus, insulin sliding scale; to follow-up TSH, random cortisol P: no acute issues Time Spent With Patient Time: Total time managing care of this patient today ____ minutes.
--- NOTE | 2025-08-10 19:36 | PM.EVENT ---
Event Note Date of Service: 08/10/25 Event Note: Patient persistent with hypotension, status post 2 boluses of lactated Ringer's and 1 bolus of normal saline, 2 bags of albumin, persistent with maps in the 56 range. recently had shot in left shoulder for pain on 08/04 Time Spent With Patient Time: Total time managing care of this patient today ____ minutes.
[2025-08-10 19:49] LABS: MANUAL DIFF FLAG NO
[2025-08-10 19:50] LABS: Hematocrit 32.3 % (42.0-52.0); Hemoglobin 10.7 g/dl (14.0-18.0); Imm Gran Abs Auto 0.09 X10*3/uL (0.00-0.03); Imm Gran Pct Auto 0.8 % (0.0-0.4); Lymphocytes Absolute Auto 1.6 X10*3/uL (1.2-4.9); Mean Corpuscular HGB Conc 33.1 g/dl (31.0-36.0); Mean Corpuscular Hemoglobin 29.0 pg (27.0-33.0); Mean Corpuscular Volume 87.5 fL (80.0-98.0); NRBC Abs Auto 0.000 X10*3/uL (0.0-0.012); NRBC Pct Auto 0.0 /100WBC (0.0-0.2); Platelet Count 219 X10*3/uL (160-400); Red Blood Count 3.69 X10*6/uL (4.60-5.80); White Blood Count 11.0 X10*3/uL (4.8-10.8)
--- NOTE | 2025-08-10 20:01 | PC.NURSE ---
LR@100mL/hr temporarily paused due to incompatibility w/abx and levophed.
[2025-08-10 20:17] LABS: Anion Gap 13 (12-20); Blood Urea Nitrogen 58 mg/dL (9-16); Calcium 7.5 mg/dL (8.4-10.2); Carbon Dioxide 21 mmol/L (22-29); Chloride 106 mmol/L (96-108); Creatinine Clr Calc Pharmacy 38.2; Estimated Glomerular Filt Rate 28; Magnesium 1.4 mg/dL (1.6-2.6); Potassium 4.0 mmol/L (3.3-5.1); Sodium 136 mmol/L (135-145)
--- NOTE | 2025-08-10 20:25 | HO.NURTONUR ---
Report given to Kwabena WALTERS in ICU, questions answered. Awaiting transport.
[2025-08-10 20:56] LABS: Albumin Level 3.9 g/dL (3.5-5.0)
[2025-08-10] MEDS: Magnesium Sulfate/H2O 2 GM/50 ML PIGGYBACK IV (21:09)
--- NOTE | 2025-08-10 22:08 | PC.ADMIT ---
Patient is alert/oriented, has chronic left shoulder and left knee pain and ambulates with cane. He gets injections in his left knee and is going to have rotator cuff surgery on his left shoulder. He reports he has fallen at least 3 times in the past 3 months. He states out of nowhere he will feel dizzy, put his head down and then wakes up on the floor. He states it happened once while he was sitting in the bathtub. He reports not drinking much fluid yesterday but his fluids are being replenished with LR and albumin and his electrolytes as well. He has no issues voiding clear yellow urine in the urinal. 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 He is currently on a very low dose of Levophed which is being titrated down.
[2025-08-10] MEDS: 0.9 % Sodium Chloride Flush 3 ML SYRINGE IVFLUSH (23:45)
[2025-08-11] VITALS (20 sets, daily range): BP systolic 107–124; BP diastolic 50–90; PULSE 54–83; RESP 11–18; TEMP 36.3–37; O2SAT 94–100; BMI 33.2
[2025-08-11] MEDS: Lactated Ringers 1,000 ML 100 ML IVCONT (05:44)
[2025-08-11 06:06] LABS: MANUAL DIFF FLAG NO
[2025-08-11 06:08] LABS: Hematocrit 31.6 % (42.0-52.0); Hemoglobin 10.6 g/dl (14.0-18.0); Imm Gran Abs Auto 0.06 X10*3/uL (0.00-0.03); Imm Gran Pct Auto 0.5 % (0.0-0.4); Lymphocytes Absolute Auto 2.6 X10*3/uL (1.2-4.9); Mean Corpuscular HGB Conc 33.5 g/dl (31.0-36.0); Mean Corpuscular Hemoglobin 28.8 pg (27.0-33.0); Mean Corpuscular Volume 85.9 fL (80.0-98.0); NRBC Abs Auto 0.000 X10*3/uL (0.0-0.012); NRBC Pct Auto 0.0 /100WBC (0.0-0.2); Platelet Count 230 X10*3/uL (160-400); Red Blood Count 3.68 X10*6/uL (4.60-5.80); White Blood Count 11.4 X10*3/uL (4.8-10.8)
[2025-08-11 06:21] LABS: Anion Gap 12 (12-20); Blood Urea Nitrogen 46 mg/dL (9-16); Calcium 7.9 mg/dL (8.4-10.2); Carbon Dioxide 22 mmol/L (22-29); Chloride 107 mmol/L (96-108); Creatinine Clr Calc Pharmacy 55.5; Estimated Glomerular Filt Rate 52; Magnesium 1.7 mg/dL (1.6-2.6); Potassium 3.8 mmol/L (3.3-5.1); Sodium 137 mmol/L (135-145)
[2025-08-11] MEDS: 0.9 % Sodium Chloride Flush 3 ML SYRINGE IVFLUSH ×2 (08:17→20:55)
--- NOTE | 2025-08-11 08:38 | PM.CCPN ---
Subjective Subjective Date of Service: 08/11/25 Interval History: no significant overnight events; improvement of hypotension, s/p norepinephrine gtt Critical Care Time (minutes): 60 Physical Exam Vital Signs: Vital Signs: Last Vital Signs Temp 97.3 F 08/11/25 08:00 Pulse 55 08/11/25 08:00 Resp 15 08/11/25 08:00 BP 117/63 08/11/25 08:00 Pulse Ox 100 08/11/25 08:00 O2 Del Method Room Air 08/11/25 08:00 BMI result Body Mass Index 33.2 Const: General: cooperative, healthy appearing, comfortable, no acute distress, well developed, alert, awake and Physically active Orientation/consciousness: patient oriented x3 HEENT: Head: Yes normal to inspection, Yes normocephalic and Yes atraumatic Eyes: General: appearance normal, both eyes and all related structures Neck: Neck: Yes normal visual inspection, Yes full ROM, Yes no meningeal signs, Yes trachea midline and Yes supple Chest: Chest palpation & inspection: normal inspection of the chest Resp: Other: no appreciable overt rales, rhonchi, wheezing Effort & Inspection: normal respiratory effort Cardio: Rate: bradycardic Rhythm: regular rhythm GI: Inspection: Yes normal to inspection, No Abdominal wall edema and No distended Palpation (GI): Soft to palpation, not firm, nontender, no guarding and not rigid Skin: General skin exam: no rashes or lesions noted Neuro: General: patient oriented x3, tone normal, moves all extremities, no meningeal signs and no focal motor deficits Extrem: General: Yes normal to inspection, Yes full ROM, Yes capillary refill normal and Yes no clubbing, cyanosis or edema Psych: Appearance: grossly normal Objective Data Labs 08/11/25 05:58 08/11/25 05:58 Labs: Laboratory Results - last 24 hr 08/10/25 08/10/25 08/10/25 11:05 11:06 12:22 WBC 12.7 H RBC 3.83 L Hgb 11.2 L Hct 33.2 L MCV 86.7 MCH 29.2 MCHC 33.7 RDW 13.9 Plt Count 233 MPV 10.5 Immature Gran % (Auto) 0.9 H Neut % (Auto) 61.7 Lymph % (Auto) 26.9 [place] % (Auto) 9.3 Eos % (Auto) 1.0 Baso % (Auto) 0.2 Lymph # (Auto) 3.4 [place] # (Auto) 1.2 Eos # (Auto) 0.1 Baso # (Auto) 0.0 Abs Immat Gran (auto) 0.11 H Absolute Neuts (auto) 7.8 Absolute Nucleated RBC 0.000 Nucleated RBC % (auto) 0.0 Hold Blue Top SEE NOTE Sodium 133 L Potassium 4.1 Chloride 100 Carbon Dioxide 22 Anion Gap 15 BUN 70 H Creatinine 3.91 H Estim Creat Clear Calc 22.3 Estimated GFR 15 Random Glucose 148 H Lactic Acid 1.7 Calcium 7.9 L D Phosphorus Magnesium 1.5 L Total Bilirubin 0.4 Direct Bilirubin 0.1 AST 21 ALT 19 Alkaline Phosphatase 67 Total Creatine Kinase 109 Troponin I High Sens 10.1 D NT-Pro-B Natriuret Pep 180.3 Total Protein 6.7 Albumin 3.8 TSH Random Cortisol Urine Color Urine Appearance Urine pH Ur Specific [place] Urine Protein Urine Glucose (UA) Urine Ketones Urine Blood Urine Nitrite Ur Leukocyte Esterase Urine RBC Urine WBC Ur Squamous Epith Cells Urine Bacteria Hyaline Casts Urine Opiates Screen Ur Buprenorphine Scrn Ur Oxycodone Screen Urine Methadone Screen Urine Fentanyl Screen Ur Barbiturates Screen Ur Phencyclidine Scrn Ur Amphetamines Screen U Benzodiazepines Scrn Urine Cocaine Screen U Marijuana (THC) Screen 08/10/25 08/10/25 08/10/25 13:49 14:23 19:43 WBC 11.0 H RBC 3.69 L Hgb 10.7 L Hct 32.3 L MCV 87.5 MCH 29.0 MCHC 33.1 RDW 13.6 Plt Count 219 MPV 10.5 Immature Gran % (Auto) 0.8 H Neut % (Auto) 81.8 H Lymph % (Auto) 14.8 L [place] % (Auto) 2.2 Eos % (Auto) 0.1 Baso % (Auto) 0.3 Lymph # (Auto) 1.6 [place] # (Auto) 0.2 Eos # (Auto) 0.0 Baso # (Auto) 0.0 Abs Immat Gran (auto) 0.09 H Absolute Neuts (auto) 9.0 H Absolute Nucleated RBC 0.000 Nucleated RBC % (auto) 0.0 Hold Blue Top Sodium 136 Potassium 4.0 Chloride 106 Carbon Dioxide 21 L Anion Gap 13 BUN 58 H Creatinine 2.29 H Estim Creat Clear Calc 38.2 Estimated GFR 28 Random Glucose 216 H Lactic Acid 1.4 Calcium 7.5 L Phosphorus 3.0 Magnesium 1.4 L* Total Bilirubin Direct Bilirubin AST ALT Alkaline Phosphatase Total Creatine Kinase Troponin I High Sens 6.6 NT-Pro-B Natriuret Pep Total Protein Albumin 3.9 TSH 0.42 Random Cortisol 55.1 Urine Color Yellow Urine Appearance Clear Urine pH 5.0 Ur Specific [place] 1.015 Urine Protein Trace Urine Glucose (UA) Negative Urine Ketones Trace Urine Blood Negative Urine Nitrite Negative Ur Leukocyte Esterase Small (1+) H Urine RBC 0-2 Urine WBC 6-10 H Ur Squamous Epith Cells 0-2 Urine Bacteria None Seen Hyaline Casts 11-20 Urine Opiates Screen Not Detected Ur Buprenorphine Scrn Not Detected Ur Oxycodone Screen Not Detected Urine Methadone Screen Not Detected Urine Fentanyl Screen Not Detected Ur Barbiturates Screen Not Detected Ur Phencyclidine Scrn Not Detected Ur Amphetamines Screen Not Detected U Benzodiazepines Scrn Not Detected Urine Cocaine Screen Not Detected U Marijuana (THC) Screen Not Detected 08/11/25 05:58 WBC 11.4 H RBC 3.68 L Hgb 10.6 L Hct 31.6 L MCV 85.9 MCH 28.8 MCHC 33.5 RDW 13.6 Plt Count 230 MPV 10.4 Immature Gran % (Auto) 0.5 H Neut % (Auto) 69.9 Lymph % (Auto) 22.9 [place] % (Auto) 6.3 Eos % (Auto) 0.2 Baso % (Auto) 0.2 Lymph # (Auto) 2.6 [place] # (Auto) 0.7 Eos # (Auto) 0.0 Baso # (Auto) 0.0 Abs Immat Gran (auto) 0.06 H Absolute Neuts (auto) 7.9 Absolute Nucleated RBC 0.000 Nucleated RBC % (auto) 0.0 Hold Blue Top Sodium 137 Potassium 3.8 Chloride 107 Carbon Dioxide 22 Anion Gap 12 BUN 46 H Creatinine 1.35 Estim Creat Clear Calc 55.5 Estimated GFR 52 Random Glucose 166 H Lactic Acid 1.0 Calcium 7.9 L Phosphorus 2.6 L Magnesium 1.7 Total Bilirubin Direct Bilirubin AST ALT Alkaline Phosphatase Total Creatine Kinase Troponin I High Sens NT-Pro-B Natriuret Pep Total Protein Albumin TSH Random Cortisol Urine Color Urine Appearance Urine pH Ur Specific [place] Urine Protein Urine Glucose (UA) Urine Ketones Urine Blood Urine Nitrite Ur Leukocyte Esterase Urine RBC Urine WBC Ur Squamous Epith Cells Urine Bacteria Hyaline Casts Urine Opiates Screen Ur Buprenorphine Scrn Ur Oxycodone Screen Urine Methadone Screen Urine Fentanyl Screen Ur Barbiturates Screen Ur Phencyclidine Scrn Ur Amphetamines Screen U Benzodiazepines Scrn Urine Cocaine Screen U Marijuana (THC) Screen Progress Note: A&P Assessment and plan (1) Hypotension: Status: Acute Plan Patient is a 74 Y M w/ hypertension, hyperlipidemia, diabetes mellitus, presenting to ED on 08/10 w/ lightheadedness associated w/ position changes, and poor PO intake, otherwise denies any other signs/symptoms; in ED, patient found to be hypotensive, though slowly improved; ED work-up demonstrating acute renal insufficiency, otherwise grossly unremarkable; admitted to medicine; later, patient developed worsening hypotension N: lightheadedness, likely d/t hypotension d/t poor PO intake, to closely monitor CV: hypotension, unclear etiology, may be d/t poor PO intake, IVF, s/p norepinephrine gtt R: no acute issues GI: diabetic diet : acute renal insufficiency, improving, to monitor renal indices/electrolytes H: no acute issues; chemical DVT prophylaxis ID: empiric ceftriaxone E: diabetes mellitus, insulin sliding scale P: no acute issues Quality Stroke Does the patient have a stroke diagnosis?: No VTE Prior VTE?: No VTE Risk Level:: Medical - moderate - high VTE Device Contraindication: N/A - Device Ordered VTE Drug Contraindication: N/A - Med Ordered
--- NOTE | 2025-08-11 11:07 | MHC.CM.PN ---
Met with pt to review d/c planning needs; pt resides alone, has no services and uses a BGM. He states his friend aJdon assists w/transportation and that he is trying to get him to serve as his UNDER WATER ASSISTANT. Pt will discuss HCP with Jadon as he would like to name him. Pt will d/c to home with no services - Jadon to transport. CM to follow. IMM in chart
[2025-08-11] MEDS: Potassium Phosphate/NS 15 MMOL/250 ML PLAST..BAG 62.5 MMOL IV (11:11)
[2025-08-11] MEDS: Lidocaine 4 % Patch ADH..PATCH 2 PATCH TRANSDERMA (11:12)
[2025-08-11] MEDS: Calcium Gluconate/NaCl,Iso-Osm 1 GM/50 ML PLAST..BAG IV (11:12)
[2025-08-11 12:39] LABS: Glucose, Whole Blood 106 mg/dL (60-115)
--- NOTE | 2025-08-11 13:10 | PM.EVENT ---
Event Note Date of Service: 08/12/25 Event Note: Patient was admitted for possible hypotension in the setting of poor oral intake/also blood pressure medications: Required multiple IV fluid boluses and subsequently ICU transfer. Patient was transferred back today Assessment and plan and physical exam per ICu note. Time Spent With Patient Time: Total time managing care of this patient today ____ minutes.
[2025-08-11 16:05] LABS: Glucose, Whole Blood 192 mg/dL (60-115)
[2025-08-11] MEDS: Fluticasone Propionate 250 MCG BLST.W.DEV 1 PUFF INHALE (19:49)
[2025-08-11 20:38] LABS: Glucose, Whole Blood 139 mg/dL (60-115)
[2025-08-11] MEDS: Aspirin Enteric Coated 81 MG TABLET.DR PO (20:50)
[2025-08-12] VITALS (9 sets, daily range): BP systolic 102–143; BP diastolic 52–70; PULSE 56–70; RESP 16–20; TEMP 36.1–36.9; O2SAT 95–98
[2025-08-12 07:25] LABS: MANUAL DIFF FLAG NO
[2025-08-12 07:37] LABS: Hematocrit 34.4 % (42.0-52.0); Hemoglobin 11.2 g/dl (14.0-18.0); Imm Gran Abs Auto 0.04 X10*3/uL (0.00-0.03); Imm Gran Pct Auto 0.5 % (0.0-0.4); Lymphocytes Absolute Auto 3.6 X10*3/uL (1.2-4.9); Mean Corpuscular HGB Conc 32.6 g/dl (31.0-36.0); Mean Corpuscular Hemoglobin 28.6 pg (27.0-33.0); Mean Corpuscular Volume 87.8 fL (80.0-98.0); NRBC Abs Auto 0.000 X10*3/uL (0.0-0.012); NRBC Pct Auto 0.0 /100WBC (0.0-0.2); Platelet Count 259 X10*3/uL (160-400); Red Blood Count 3.92 X10*6/uL (4.60-5.80); White Blood Count 8.0 X10*3/uL (4.8-10.8)
[2025-08-12 08:02] LABS: Blood Urea Nitrogen 32 mg/dL (9-16); Calcium 8.4 mg/dL (8.4-10.2); Creatinine Clr Calc Pharmacy 90.4; Estimated Glomerular Filt Rate > 60; Magnesium 1.5 mg/dL (1.6-2.6)
[2025-08-12 08:11] LABS: Anion Gap 14 (12-20); Carbon Dioxide 22 mmol/L (22-29); Chloride 107 mmol/L (96-108); Potassium 4.6 mmol/L (3.3-5.1); Sodium 138 mmol/L (135-145)
[2025-08-12] MEDS: Fluticasone Propionate 250 MCG BLST.W.DEV 1 PUFF INHALE ×2 (08:24→19:59)
[2025-08-12 08:45] LABS: Glucose, Whole Blood 111 mg/dL (60-115)
--- NOTE | 2025-08-12 08:45 | P.PNIM_ITS ---
Subjective Subjective Date of Service: 08/13/25 Interval History: Borderline BP Review of Systems His symptoms are seems to be improving, Able to tolerate diet Still generalized weak Physical Exam 2 Exam: Exam: Appearance: Alert.? Oriented X3.? cvs: rrr, [id number] , no murmur res: clear to auscultation ,no rhonchii or wheezing abd: no rebound or guarding ,nt, bs present. ext pulses present , no cyanosis . neuro: axo3 , nonfocal. Vital Signs: Vital Signs: Last Vital Signs Temp 97.5 F 08/12/25 08:00 Pulse 59 08/12/25 08:25 Resp 18 08/12/25 08:25 BP 129/70 08/12/25 08:00 Pulse Ox 95 08/12/25 08:00 O2 Del Method Room Air 08/12/25 08:00 BMI result Body Mass Index 33.2 Objective Data Active Medications Allopurinol (Allopurinol 100 Mg Tablet) 100 mg PO BID [facility] Last Admin: 08/11/25 20:51 Dose: 100 mg Documented By: SAMANTHA Aspirin (Aspirin Enteric Coated 81 Mg Tablet.) 81 mg PO BEDTIME [facility] Last Admin: 08/11/25 20:50 Dose: 81 mg Documented By: SAMANTHA Atorvastatin Calcium (Atorvastatin Calcium 10 Mg Tablet) 10 mg PO BEDTIME [facility] Last Admin: 08/11/25 20:51 Dose: 10 mg Documented By: SAMANTHA Clotrimazole (Clotrimazole 1 % Cream 15 Gm Tube) 1 appl TOPICAL BID [facility]; Protocol Last Admin: 08/11/25 20:55 Dose: Not Given Documented By: SAMANTHA Non-Admin Reason: Patient Refused Dextrose (Dextrose 50 % 25 Gm/50 Ml Syringe) 25 gm IVPUSH Q15M PRN; Protocol PRN Reason: per Hypoglycemia Standing Ord. Escitalopram Oxalate (Escitalopram Oxalate 10 Mg Tablet) 10 mg PO DAILY [facility] Fluticasone Propionate (Fluticasone Propionate 250 Mcg Blst.W.Dev) 1 puff INHALE RBID [facility] Last Admin: 08/12/25 08:24 Dose: 1 puff Documented By: BENTLEY Gabapentin (Gabapentin 600 Mg Tablet) 600 mg PO BID [facility] Last Admin: 08/11/25 20:51 Dose: 600 mg Documented By: SAMANTHA Glucose (Glucose Gel 15 Gm Gel..Gram.) 15 gm PO Q15M PRN; Protocol PRN Reason: per Hypoglycemia Standing Ord. Heparin Sodium (Porcine) (Heparin Sodium,Porcine 5,000 Unit/Ml Vial) 5,000 unit SUBCUT Q12H [facility] Last Admin: 08/12/25 05:56 Dose: 5,000 unit Documented By: SAMANTHA Ceftriaxone Sodium 2 gm/ (Sodium Chloride) 50 mls @ 100 mls/hr IV Q24H [facility] Last Infusion: 08/11/25 23:46 Dose: Infused Documented By: SAMANTHA Acetaminophen (Ofirmev) 1,000 mg in 100 mls @ 400 mls/hr IV Q6H PRN PRN Reason: Pain, Moderate(Pain Scale 4-6) Last Infusion: 08/11/25 21:01 Dose: Infused Documented By: SAMANTHA Insulin Human Lispro (Insulin Lispro 100 Unit/Ml 3 Ml Vial) 0 unit SUBCUT QIDACHS [facility]; Protocol Last Admin: 08/11/25 20:38 Dose: Not Given Documented By: SAMANTHA Non-Admin Reason: No Insulin Coverage Lidocaine (Lidocaine 4 % Patch Adh..Patch) 2 patch TRANSDERMA DAILY [facility]; Protocol Last Admin: 08/11/25 11:12 Dose: 2 patch Documented By: MISHA Melatonin (Melatonin 3 Mg Tablet) 6 mg PO BEDTIME PRN PRN Reason: Insomnia Last Admin: 08/11/25 20:50 Dose: 6 mg Documented By: SAMANTHA Montelukast Sodium (Montelukast Sodium 10 Mg Tablet) 10 mg PO BEDTIME [facility] Last Admin: 08/11/25 20:51 Dose: 10 mg Documented By: SAMANTHA Sodium Chloride (0.9 % Sodium Chloride Flush 3 Ml Syringe) 3 ml IVFLUSH QSHIFT [facility] Last Admin: 08/11/25 20:55 Dose: 3 ml Documented By: SAMANTHA Labs 08/13/25 07:54 08/13/25 07:54 Labs: Laboratory Results - last 24 hr 08/11/25 08/11/25 08/11/25 12:34 16:01 20:29 MCV MCH MCHC RDW Plt Count MPV Immature Gran % (Auto) Neut % (Auto) Lymph % (Auto) [place] % (Auto) Eos % (Auto) Baso % (Auto) Lymph # (Auto) [place] # (Auto) Eos # (Auto) Baso # (Auto) Abs Immat Gran (auto) Absolute Neuts (auto) Absolute Nucleated RBC Nucleated RBC % (auto) Anion Gap Estim Creat Clear Calc Estimated GFR POC Glucose 106 192 H 139 H Random Glucose Calcium Phosphorus Magnesium 08/12/25 06:54 MCV 87.8 MCH 28.6 MCHC 32.6 RDW 13.7 Plt Count 259 MPV 10.5 Immature Gran % (Auto) 0.5 H Neut % (Auto) 46.3 Lymph % (Auto) 44.9 H [place] % (Auto) 6.5 Eos % (Auto) 1.4 Baso % (Auto) 0.4 Lymph # (Auto) 3.6 [place] # (Auto) 0.5 Eos # (Auto) 0.1 Baso # (Auto) 0.0 Abs Immat Gran (auto) 0.04 H Absolute Neuts (auto) 3.7 Absolute Nucleated RBC 0.000 Nucleated RBC % (auto) 0.0 Anion Gap 14 Estim Creat Clear Calc 90.4 Estimated GFR > 60 POC Glucose Random Glucose 103 Calcium 8.4 D Phosphorus 2.2 L Magnesium 1.5 L Microbiology Microbiology Results: Microbiology 08/10/25 12:23 Blood Culture - Preliminary Blood - Venous No growth after 24 hours. 08/10/25 12:23 Blood Culture - Preliminary Blood - Venous No growth after 24 hours. 08/10/25 Unknown Urine Culture - Preliminary Urine Catheterized - Straight Catheter Culture in progress. Assessment and Plan (1) Orthostatic hypotension: Status: Acute Plan 74 year old man admitted with OLIVIA and orthostatic hypotension secondary to poor po intake Orthostatic hypotension-Patient was admitted for possible hypotension in the setting of poor oral intake/also blood pressure medications: Required multiple IV fluid boluses and subsequently ICU transfer. Patient was transferred back today Likely secondary to dehydration and poor p.o. intake No infectious source Status post 3 L of IV fluids in the ER and albumin Continue IV fluids Slow position changes Hold all antihypertensive medications at this time OLIVIA Likely secondary hypoperfusion from hypotension IV fluids Abdominal CT not showing obstruction or hydronephrosis Consider Nephrology consultation if creatinine does not improve Leukocytosis. Mild sign no infectious source noted maybe reactive Normocytic anemia Stable H&H, no need for blood transfusion Hypertension hold all antihypertensives medications at this time and restart as blood pressure allows Diabetes mellitus type 2 Sliding scale, ADA diet, hold metformin due to OLIVIA Hyperlipidemia Continue aspirin and statin Gout Hold allopurinol Anxiety Continue citalopram DVT prophylaxis with heparin Full code Quality Stroke Does the patient have a stroke diagnosis?: No VTE Prior VTE?: No VTE Risk Level:: Medical - moderate - high VTE Device Contraindication: N/A - Device Ordered VTE Drug Contraindication: N/A - Med Ordered
[2025-08-12] MEDS: Lidocaine 4 % Patch ADH..PATCH 2 PATCH TRANSDERMA (08:55)
[2025-08-12] MEDS: Clotrimazole 1 % Cream 15 GM TUBE 1 APPL TOPICAL (08:56)
[2025-08-12] MEDS: 0.9 % Sodium Chloride Flush 3 ML SYRINGE IVFLUSH ×3 (08:56→20:25)
[2025-08-12 11:41] LABS: Glucose, Whole Blood 180 mg/dL (60-115)
--- NOTE | 2025-08-12 12:47 | MHC.CM.PN ---
Pt. requested to speak to CM, he said that his friend would like to become his WASH HOUSE SUPERVISOR. CM explained that we do not set this up here, he can reach out to his contact center team lead at [facility]. CM explained that PT rec that he have VNA services at home, and he was in agreement with this. Referrals to VNA's out.
[2025-08-12 17:16] LABS: Glucose, Whole Blood 132 mg/dL (60-115)
[2025-08-12] MEDS: Sodium,Potassium Phosphates POWD.PACK 1 PACKET PO ×2 (17:47→20:24)
[2025-08-12] MEDS: Aspirin Enteric Coated 81 MG TABLET.DR PO (20:24)
[2025-08-12] MEDS: Throat Lozenge, Medicated LOZENGE 1 LOZENGE MUCOUS MEM (20:24)
[2025-08-12 20:55] LABS: Glucose, Whole Blood 111 mg/dL (60-115)
[2025-08-13] VITALS: BP 128/66; PULSE 63; RESP 16; TEMP 36.7; O2SAT 97
[2025-08-13 04:00] VITALS: BP 140/66; PULSE 54; RESP 16; TEMP 35.8; O2SAT 98
[2025-08-13 05:50] VITALS: BMI 33.3
[2025-08-13 07:43] VITALS: BP 139/73; PULSE 60; RESP 20; TEMP 36.3; O2SAT 98
[2025-08-13] MEDS: Fluticasone Propionate 250 MCG BLST.W.DEV 1 PUFF INHALE (07:46)
[2025-08-13 07:47] VITALS: PULSE 62; RESP 16
[2025-08-13 07:50] LABS: Glucose, Whole Blood 108 mg/dL (60-115)
[2025-08-13 08:32] LABS: MANUAL DIFF FLAG NO
[2025-08-13 08:35] LABS: Hematocrit 37.8 % (42.0-52.0); Hemoglobin 12.4 g/dl (14.0-18.0); Imm Gran Abs Auto 0.04 X10*3/uL (0.00-0.03); Imm Gran Pct Auto 0.4 % (0.0-0.4); Lymphocytes Absolute Auto 4.2 X10*3/uL (1.2-4.9); Mean Corpuscular HGB Conc 32.8 g/dl (31.0-36.0); Mean Corpuscular Hemoglobin 29.0 pg (27.0-33.0); Mean Corpuscular Volume 88.3 fL (80.0-98.0); NRBC Abs Auto 0.000 X10*3/uL (0.0-0.012); NRBC Pct Auto 0.0 /100WBC (0.0-0.2); Platelet Count 301 X10*3/uL (160-400); Red Blood Count 4.28 X10*6/uL (4.60-5.80); White Blood Count 9.4 X10*3/uL (4.8-10.8)
--- NOTE | 2025-08-13 08:55 | P.DS_ITS ---
DS: Providers Provider Date of Service: 08/13/25 Date of admission: 08/10/25 17:00 Date of discharge: 08/13/25 Primary care physician: Marleny Beebe MD Attending physician on discharge: Lonnie Lemus Discharging clinician: Lonnie Lemus DS: Diagnosis Discharge Diagnosis (1) Hypotension: Status: Acute DS: Summary Hospital Course Hospital Course: HPI:74-year-old male, with a past medical history of hyperlipidemia, gout, arthritis, diabetes, and hypertension, who presents to the emergency department with concerns of dizziness since yesterday. Patient that he was eating lunch and noticed that he was having increased lightheadedness especially with position changes. He also reports that he has had back pain and neck pain which is chronic for him however states that this has worsened. He states when he gets episodes of worsening neck and back pain the dizziness worsens. He reported that he had had not been drinking as much fluids as he should be. He had denied chest pain, shortness breath, nausea, vomiting, diarrhea he reports that he has not been taking any of his medications in the last 2 days but then stated that he took a pain medication last night but could not say which one. In the ER, creatinine was noted to be 3.91, UA negative, blood pressure as low as 55/31. He did receive albumin in the ER and 3 L of IV fluids. His bladder scan in the ER which was essentially negative. No obstruction noted on abdominal CT nor hydronephrosis. Patient is awake and alert. Blood pressure is improving. He will be admitted for further management and treatment of UTI and OLIVIA. Hospital course: Patient was admitted for orthostasis and olivia secondary to oral intake/blood pressure medication-with the aggressive hydration and also required ICU stay with pressors, in addition patient was thought to have question of UTI for which patient was on IV antibiotics -blood cultures and urine cultures were sent. CTA abdomen:No hydronephrosis or renal lithiasis.2 ventral hernias containing bowel, as detailed above. No evidence of obstruction. CTA head and neck negative(please see imaging section for further details.) With the above supportive care patient seems to be improved significantly, now no new symptoms.Blood culture negative, urine culture<[id number] cfu/ml. Leukocytosis improved. Use Mike stocking, orthostatic precautions, encouraged for p.o. intake, stop amlodipine. Start hydrochlorothiazide, hold lisinopril for 1 week and repeat BMP in 1 week. Monitor blood pressure closely outpatient-if blood pressure consistently above 140/70 can slowly introduce lisinopril after repeating BMP. Seen by PT recommended home with services. plan: Stop amlodipine. ceftin for 4 more days Use Mike stocking, orthostatic precautions, encouraged for p.o. intake, stop amlodipine. Start hydrochlorothiazide, hold lisinopril for 1 week and repeat BMP in 1 week. Monitor blood pressure closely outpatient-if blood pressure consistently above 140/70 can slowly introduce lisinopril after repeating BMP. Above management discussed with the patient detail length he understand and in agreement with the above plan, time spent 45 minute. Time Attestation Total time managing care of this patient today: 45 mintues. Discharge Coordination Time (in mins): 45 min Quality: Safe Use of Opioids Does Pt have an Active Cancer Diagnosis on the Problem List?: No Quality: Stroke Does the patient have a stroke diagnosis?: No Physical Exam Exam: Exam: Appearance: Alert.? Oriented X3.? cvs: rrr, [id number] , no murmur res: clear to auscultation ,no rhonchii or wheezing abd: no rebound or guarding ,nt, bs present. ext pulses present , no cyanosis . neuro: axo3 , nonfocal. Vital Signs: Vital Signs: Last Vital Signs Temp 97.4 F 08/13/25 07:43 Pulse 62 08/13/25 07:47 Resp 16 08/13/25 07:47 BP 139/73 08/13/25 07:43 Pulse Ox 98 08/13/25 07:43 O2 Del Method Room Air 08/13/25 07:43 BMI result Body Mass Index 33.3 DS: Data Data Completed and Pending Completed studies during hospitalization [Text1]: Procedures Insertion of Infusion Device into Right Cephalic Vein, Percutaneous Approach (12/14/23) Labs on day of discharge: Laboratory Results - last 24 hr 08/12/25 08/12/25 08/12/25 11:32 16:40 20:44 WBC RBC Hgb Hct MCV MCH MCHC RDW Plt Count MPV Immature Gran % (Auto) Neut % (Auto) Lymph % (Auto) [place] % (Auto) Eos % (Auto) Baso % (Auto) Lymph # (Auto) [place] # (Auto) Eos # (Auto) Baso # (Auto) Abs Immat Gran (auto) Absolute Neuts (auto) Absolute Nucleated RBC Nucleated RBC % (auto) POC Glucose 180 H 132 H 111 08/13/25 08/13/25 07:43 07:54 WBC 9.4 RBC 4.28 L Hgb 12.4 L Hct 37.8 L MCV 88.3 MCH 29.0 MCHC 32.8 RDW 13.8 Plt Count 301 MPV 10.4 Immature Gran % (Auto) 0.4 Neut % (Auto) 46.0 Lymph % (Auto) 45.1 H [place] % (Auto) 6.6 Eos % (Auto) 1.3 Baso % (Auto) 0.6 Lymph # (Auto) 4.2 [place] # (Auto) 0.6 Eos # (Auto) 0.1 Baso # (Auto) 0.1 Abs Immat Gran (auto) 0.04 H Absolute Neuts (auto) 4.3 Absolute Nucleated RBC 0.000 Nucleated RBC % (auto) 0.0 POC Glucose 108 Preliminary micro results at discharge 08/10/25 12:23 Blood Culture - Preliminary Blood - Venous No growth after 48 hours. 08/10/25 12:23 Blood Culture - Preliminary Blood - Venous No growth after 48 hours. Imaging Chest x-ray: Radiologist's impression: ITS Impressions Chest X-Ray 08/10/25 12:38 IMPRESSION: No acute airspace disease. Abdomen/Pelvis CT 08/10/25 13:05 IMPRESSION: No hydronephrosis or renal lithiasis. 2 ventral hernias containing bowel, as detailed above. No evidence of obstruction. Fleischner guidelines were followed. Head CT 08/10/25 13:05 IMPRESSION: No acute intracranial abnormality. Discharge Plan Discharge Anticipated Discharge Date/Time: 08/13/25 08:36 Patient Disposition: Home Health Service Discharge Diagnosis: olivia,relative orthosatsis,? uti Referrals: [facility] [Outside] - 1 Week Marleny Beebe MD [Primary Care Provider, Internal Medicine] - 1 Week Discharge Medications: New magnesium oxide 400 mg (241.3 mg magnesium) Tablet 400 mg PO DAILY Qty: 7 0RF (DME) jax.stocking,knee,reg,smal [T.E.D. Anti-Embolism Stocking] Misc See Rx Instructions .Route Qty: 2 0RF Rx Instructions: As directed cefuroxime axetil 500 mg Tablet 500 mg PO Q12H Qty: 8 0RF Continued chlorthalidone 25 mg tablet 25 mg PO DAILY clotrimazole 1 % cream 1 appl topical BID insulin degludec [Tresiba FlexTouch U-100] 100 unit/mL (3 mL) insulin pen 3 unit subcut BEDTIME fluticasone furoate [Arnuity Ellipta] 200 mcg/actuation blister with device 1 inh INHALATION DAILY lidocaine 5 % Adhesive Patch,Medicated 1 patch TOPICAL DAILY PRN (Reason: Pain) Rx Instructions: leave on most painful area for up to 12 hrs acetaminophen 500 mg tablet 500 mg PO Q8H PRN (Reason: mild pain) montelukast 10 mg tablet 10 mg PO BEDTIME metformin 1,000 mg tablet 1,000 mg PO BID citalopram 20 mg tablet 20 mg PO DAILY allopurinol 100 mg tablet 100 mg PO BID (DME) OneTouch Ultra Test Strip See Rx Instructions .ROUTE .MEDSUPPLY Qty: 10 Rx Instructions: As directed aspirin 81 mg tablet,delayed release (DR/EC) 81 mg PO BEDTIME atorvastatin 10 mg tablet 10 mg PO BEDTIME gabapentin 600 mg tablet 600 mg PO BID Held lisinopril 10 mg tablet 10 mg PO BEDTIME Hold Instructions: Resume on 08/22/25. Discontinued amlodipine 10 mg tablet 10 mg PO BEDTIME Discharge Orders: Discharge Order (Routine); Ordered 08/13/25 Ordered By: Lonnie Lemus Diet: Advance to usual diet Activity on Discharge: As tolerated Stand Alone Forms: Patient Portal Discharge page Print Language: Qatari Care Plan Goals: as below. Health Concerns: As above. Plan of Treatment: Stop amlodipine. Use Mike stocking, orthostatic precautions, encouraged for p.o. intake, stop amlodipine. Start hydrochlorothiazide, hold lisinopril for 1 week and repeat BMP in 1 week. Monitor blood pressure closely outpatient-if blood pressure consistently above 140/70 can slowly introduce lisinopril after repeating BMP. Assessment: As above.
--- NOTE | 2025-08-13 08:56 | W.MHC.F2F ---
Service Date Service Date: 08/13/25 Encounter Date of encounter: 08/13/25 Encounter: Orthostatic hypotension, OLIVIA Reasons for Services Signs and symptoms assessed: Any new symptoms of lightheadedness or dizziness Reason for penitentiary: CV/CP assess and/or care, medication management, medication treatment and teach disease management Reason for physical therapy: home safety and mobility, therapeutic exercises, restore joint function, gait/transfer training, assess need for DME, ADL training, energy conservation and other MD Overseeing Care: Marleny Beebe Homebound: Leaving the home is medically contraindicated at this time without the asist of a device and/or another person due th the listed conditions above and below. Reason homebound: weakness related to hospital stay Homebound supporting statement: Patient is generalised weak post hospitlisation and need help with going to appointments and labs draws as well as PT. Certification: Based on the above findings, I certify that this patient is confined to the home and needs intermittent penitentiary care, physical therapy and/or speech therapy, or continues to need occupational therapy. The patient is under my care, and I have initiated the establishment of the plan of care. The patient will be followed by a physician who will periodically review the plan of care. Time Spent With Patient Time: Total time managing care of this patient today ____ minutes.
[2025-08-13 08:59] LABS: Anion Gap 13 (12-20); Blood Urea Nitrogen 25 mg/dL (9-16); Calcium 8.9 mg/dL (8.4-10.2); Carbon Dioxide 26 mmol/L (22-29); Chloride 103 mmol/L (96-108); Creatinine Clr Calc Pharmacy 91.7; Estimated Glomerular Filt Rate > 60; Magnesium 1.6 mg/dL (1.6-2.6); Potassium 4.5 mmol/L (3.3-5.1); Sodium 137 mmol/L (135-145)
[2025-08-13] MEDS: Sodium,Potassium Phosphates POWD.PACK 1 PACKET PO ×2 (09:20→12:51)
[2025-08-13] MEDS: Throat Lozenge, Medicated LOZENGE 1 LOZENGE MUCOUS MEM ×2 (09:21→12:51)
[2025-08-13] MEDS: Lidocaine 4 % Patch ADH..PATCH 2 PATCH TRANSDERMA (09:23)
[2025-08-13] MEDS: 0.9 % Sodium Chloride Flush 3 ML SYRINGE IVFLUSH (09:26)
[2025-08-13 11:19] VITALS: BP 101/55; PULSE 62; RESP 20; TEMP 36.8; O2SAT 98
[2025-08-13 11:36] LABS: Glucose, Whole Blood 163 mg/dL (60-115)
--- NOTE | 2025-08-13 12:42 | MHC.CM.PN ---
Patient is discharged today with [facility]. He has arranged for transportation home.
[2025-08-13 16:14] LABS: Glucose, Whole Blood 123 mg/dL (60-115)
== END 2025-08-13 16:20 | disposition home health service (06) | DRG 312 ==
LOC: HO.ED 17:04 → HO.EDOVER 17:08 → HO.ICU 20:02 → HO.IMC 08-11 13:44
PROVIDERS: Internal Medicine Critical Care Medicine; Nurse Practitioner Family; Physician Assistant Medical; Admitting Provider Nurse Practitioner Acute Care; Emergency Provider Emergency Medicine; PCP Internal Medicine; Visit Provider Internal Medicine
DX: I95.2 Hypotension due to drugs (principal); N17.9 Acute kidney failure, unspecified; N39.0 Urinary tract infection, site not specified; E11.9 Type 2 diabetes mellitus without complications; M10.9 Gout, unspecified; E86.0 Dehydration; D64.9 Anemia, unspecified; F41.9 Anxiety disorder, unspecified; T46.5X5A Adverse effect of other antihypertensive drugs, initial encounter; E78.5 Hyperlipidemia, unspecified; Z87.891 Personal history of nicotine dependence; Z79.4 Long term (current) use of insulin; Z79.82 Long term (current) use of aspirin; Z79.84 Long term (current) use of oral hypoglycemic drugs; Z79.899 Other long term (current) drug therapy
CPT/HCPCS: 36415; 70450; 71045; 72125; 74176; 80048; 80076; 80307; 81001; 82040; 82533; 82550; 82947; 83605; 83735; 83880; 84100; 84443; 84484; 85025; 87040; 87086; 93005; 94640; 97162; 99285; J0131; J0613; J0696; J1644; J1720; J3475; J7120; P9047

== ENCOUNTER → 2025-08-10 10:27 | Outpatient (BNV) | payer OTHER, SELFPAY | PROVIDERS: Admitting Provider Nurse Practitioner Acute Care; Emergency Provider Emergency Medicine; PCP Internal Medicine; Visit Provider Internal Medicine | DX: R00.1 Bradycardia, unspecified (principal); I49.9 Cardiac arrhythmia, unspecified; I44.0 Atrioventricular block, first degree; I45.2 Bifascicular block | CPT/HCPCS: 93010 ==

== ENCOUNTER → 2025-08-10 12:03 | Outpatient (BNV) | payer OTHER, SELFPAY | PROVIDERS: Emergency Provider Emergency Medicine; PCP Internal Medicine; Visit Provider Radiology Diagnostic Radiology | DX: N17.9 Acute kidney failure, unspecified (principal); K43.9 Ventral hernia without obstruction or gangrene; R42 Dizziness and giddiness | CPT/HCPCS: 70450; 71045; 74176 ==

== ENCOUNTER 2025-08-10 17:00 | Outpatient (BNV) | payer OTHER, SELFPAY | END 2025-08-11 18:44 | PROVIDERS: Admitting Provider Nurse Practitioner Acute Care; Emergency Provider Emergency Medicine; PCP Internal Medicine; Visit Provider Specialist | DX: M54.2 Cervicalgia (principal); M47.812 Spondylosis without myelopathy or radiculopathy, cervical region; Y92.019 Unspecified place in single-family (private) house as the place of occurrence of the external cause; W19.XXXA Unspecified fall, initial encounter | CPT/HCPCS: 72125 ==

== ENCOUNTER → 2025-08-10 17:00 | Outpatient (BNV) | payer OTHER, SELFPAY | PROVIDERS: Admitting Provider Nurse Practitioner Acute Care; Emergency Provider Emergency Medicine; PCP Internal Medicine; Visit Provider Nurse Practitioner Acute Care | DX: I95.1 Orthostatic hypotension (principal) | CPT/HCPCS: 99223; 99499 ==

== ENCOUNTER → 2025-08-10 17:00 | Outpatient (BNV) | payer OTHER, SELFPAY | PROVIDERS: Admitting Provider Nurse Practitioner Acute Care; Emergency Provider Emergency Medicine; PCP Internal Medicine; Visit Provider Internal Medicine Critical Care Medicine | DX: I95.9 Hypotension, unspecified (principal) | CPT/HCPCS: 99291; 99499 ==

== ENCOUNTER 2025-08-17 14:31 | Outpatient (AMB) | payer MEDICARE, SELFPAY ==
--- NOTE | 2025-08-17 14:35 | MHC.OFFVIS ---
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 Anti-Embolism Stocking) As directed fluticasone furoate 200 mcg/actuation (Arnuity Ellipta) 1 inh inhalation DAILY gabapentin 600 mg PO BID insulin degludec (Tresiba FlexTouch U-100 insulin) 3 units subcut BEDTIME lidocaine 5% 1 patch topical DAILY PRN lisinopril 10 mg PO BEDTIME Held on 08/13/25. Instructions: Resume on 08/22/25. magnesium oxide 400 mg PO DAILY metformin 1,000 mg PO BID montelukast 10 mg PO BEDTIME HPI Comments Details: Marin is very pleasant 74 years old gentleman who presents in my office with complains on multiple pain generators. He reports his pain started long time ago. He complains on pain in the left shoulder, pain in the left hip, pain in the left knee, pain in the lower back, pain in the back of the neck. He recently received intra-articular left knee steroid injection. He reports good pain relief from intra-articular hip injection. He also 3 weeks ago received intra-articular left shoulder injection non image guided. He reported 2 weeks of pain improvement only. He reports pain in the lower back without radiation to bilateral lower extremities. He reports pain in the back aggravated with flexing backwards more than flexing forward, he reports pain in the back increases with standing and walking. He is unable to sleep normally can not do activities of daily living can not take care of himself can not function normally. He reports that heat application makes his pain slightly better. In terms of tissue damage he describes his pain as stabbing, lancinating, tingling, stinging, dull, hurting, heavy, tiring, exhausting, fearful, terrifying sensation. He had x-rays performed on the left knee as well as x-rays of the left shoulder. Both images demonstrated very advanced arthritis of the both joints. He had injection described as above. He had tried acupuncture to treat the pain of his joints unfortunately those were not effective. Very advanced nature of the arthritic changes on the x-ray probably prevented orthopedic surgery to send him for physical therapy. His past medical history significant for hypertension and diabetes, he recently was admitted to the hospital with acute kidney injury. He reports that he was told that he has weakness in the heart, however in our system there is no information about congestive heart failure. Past surgical history significant for microdiskectomy performed long time ago without hardware insertion. He denies smoking currently he was able to stop smoking with the help of the acupuncture. He denies drinking alcohol, he denies recreational drugs. [facility] Medical History (Updated 08/17/25 @ 16:26 by Hola Jara MD) HLD (hyperlipidemia) Gout Arthritis Diabetes HTN (hypertension) Surgical History History of bowel resection Hx of colonoscopy Social History Household Members: None Housing: Apartment Do you presently have visiting nurse or other home services: No Alcohol intake: former Patient Tobacco Use Status: Former Tobacco user e-Cigarette/Vaping Use: Never Used Second Hand Smoke Exposure: No service: No Review of Systems Const All systems reviewed & are unremarkable except as noted in HPI and below Physical Exam Vital Signs: Last Vital Signs Pulse 73 08/17/25 14:37 Resp 16 08/17/25 14:37 BP 144/75 H 08/17/25 14:37 Pulse Ox 97 08/17/25 14:37 Oxygen Delivery Method Room Air 08/17/25 14:37 BMI result Body Mass Index 33.4 Back/Spine/Pelvis Other: On physical exam flexing forward aggravates pain however flexing backwards aggravates pain even more. Loading test is positive. Pete test is equivocal. Pelvic compression test and pelvic distraction tests are negative. Valsalva maneuver is negative for pain increase. SLR is negative bilaterally. Extrem Other: Range of motion of the left knee is limited. range of motion of the left shoulder is limited. Results Reviewed Results Reviewed: XR SHOULDER, LEFT CLINICAL INFORMATION: M25.512 - Pain in left shoulder COMPARISON: May 23, 2023 TECHNIQUE: AP and Y-view projection of the left shoulder. FINDINGS: Joint space narrowing, sclerosis along the articular surface as well as subchondral cyst formation, glenohumeral joint, acromioclavicular joint and deformity of the humeral head. Marginal osteophyte formation in the inferior glenoid foci of the scapula. No acute cortical disruption. Joint space narrowing/loss glenohumeral joint and acromioclavicular joint and acromiohumeral joints. IMPRESSION: Severe osteoarthrosis/osteoarthritis, left shoulder. Concerning chronic/old rotator cuff tendon tear. XR KNEE, LEFT CLINICAL INFORMATION: M25.562 - Pain in left knee COMPARISON: None available. TECHNIQUE: Three views of the left knee. FINDINGS: Severe medial compartment arthritis, joint space loss, osteophytes. Arthritis to a lesser degree in the lateral and patellofemoral compartment. No visible acute fracture or dislocation. No effusion. Suspected chondrocalcinosis in the lateral compartment. No suspicious bony lesions. No abnormal soft tissue calcification. IMPRESSION: Tricompartment arthritis. Severe medial compartment arthritis. Assessment & Plan Assessment & Plan (1) Gout, arthritis: Code(s): M10.9 - Gout, unspecified Category: Medical (2) Arthritis of left shoulder region: Code(s): M19.012 - Primary osteoarthritis, left shoulder Category: Medical (3) Arthritis of left knee: Code(s): M17.12 - Unilateral primary osteoarthritis, left knee Category: Medical (4) Spondylosis of lumbar region without myelopathy or radiculopathy: Code(s): M47.816 - Spondylosis without myelopathy or radiculopathy, lumbar region Category: Medical (5) Chronic pain syndrome: Code(s): G89.4 - Chronic pain syndrome Category: Medical Plan I explained to the patient that he I have recently had 2 steroid injections 1 in his shoulder and 1 in the left knee. Therefore the continuation of the steroid injections in those joints quite impractical. I would concentrate my attention today on the pain in the lumbar spine. I will schedule this patient for bilateral medial branch block L3, L4, dorsal ramus L5 bilateral diagnostic to establish 1 of his pain generators. I believe this is coming from the joints in his back. In the future I would like to address pain in the shoulder on the left and pain in the left knee with potential nerve blocks and neuromodulation. I will schedule this patient for injection and we will see him after the injection. Coding Level of Care Code New Pt Level 3 (82878) Diagnoses Gout, arthritis M10.9 Arthritis of left shoulder region M19.012 Arthritis of left knee M17.12 Spondylosis of lumbar region without myelopathy or radiculopathy M47.816 Chronic pain syndrome G89.4
[2025-08-17 14:37] VITALS: BP 144/75; PULSE 73; RESP 16; O2SAT 97; BMI 33.4
--- OUTSIDE RECORDS SUMMARY | 2025-08-17 17:41 | XMS_ITS | Encounter Summary ---
Author Organization [employer] Address [address] [facility] [address] [place] [address] Care Team Providers Care A&P Technician Name Role Phone aMrleny Beebe MD Primary Care Provider + Kavin Tan PharmD Unavailable [phone] Encounter Details Date Type Department Care Team (Late st Contact Info) Description 03/26/2023 Orders Only [facility] [address] [place], [place] [phone] Dejah Stewart LPN Social History Tobacco Use [...] Care Team (Late st Contact Info) Description 08/22/2025 2:30 PM EST Office Visit [address] [address] Marleny Beebe MD [address] [place] [phone] 08/31/2025 10:30 AM EST Office Visit [address] [address] Marleny Beebe MD [address] [place] [phone] 09/07/2025 9:00 AM EST Medication Management [address] [place] [address] Kavin Tan, PharmD [address] [place] [address] documented as of this encounter Visit Diagnoses Not on filedocumented in this encounter Care Teams A&P Technician Relationship Specialty Start Date End Date Marleny Beebe MD [address] [place] [phone] PCP - General Family Medicine 12/25/16 Kavin Tan, PharmD [address] [place] [address] Pharmacist Pharmacy 07/13/25 documented as of this encounter
--- OUTSIDE RECORDS SUMMARY | 2025-08-17 17:41 | XMS_ITS | Encounter Summary ---
Author Organization [employer] Address [address] [place] [address] [address] [place] [address] Care Team Providers Care Labeling Specialist Name Role Phone Marleny Beebe MD Primary Care Provider + Kavin Tan PharmD Unavailable [phone] Reason for Visit * Reason Comments Med Refill Encounter Details Date Type Department Care Team (Late st Contact Info) Description 01/29/2023 Refill [facility] [address] [place] [address] [phone] Marleny Beebe MD [address] [place] [phone] Controlled type 2 diabetes mellitus with hyperglycemia, with long-term current use of insulin ([facility]); Primary hypertension Social History Tobacco Use Types [...] Description 08/22/2025 2:30 PM EST Office Visit [facility] [address] [place] [address] [phone] Marleny Beebe MD [address] [place] [address] [phone] 08/31/2025 10:30 AM EST Office Visit [facility] [address] [place] [address] [phone] Marleny Beebe MD [address] [place] [address] [phone] 09/07/2025 9:00 AM EST Medication Management [facility] [address] [place] [address] [phone] Kavin Tan, Ana [address] [place] [address] [phone] documented as of this encounter Visit Diagnoses Diagnosis Controlled type 2 diabetes mellitus with hyperglycemia, with long-term current use of insulin (HCC) Primary hypertension Unspecified essential hypertension documented in this encounter Care Teams Labeling Specialist Relationship Specialty Start Date End Date Marleny Beebe MD [address] [place] [address] [phone] PCP - General Family Medicine 12/25/16 Kavin Tan, Ana [address] [place] [address] [phone] Pharmacist Pharmacy 07/13/25 documented as of this encounter
--- OUTSIDE RECORDS SUMMARY | 2025-08-17 17:41 | XMS_ITS | Clinical Summary ---
Author Organization [employer] Address [address] [facility] [address] [place] [address] Care Team Providers Care Eligibility Analyst Name Role Phone Marleny Beebe MD Primary Care Provider + Kavin Tan PharmD Unavailable [phone] Allergies No known active allergies Medications * This document contains information received from the source organization and may not represent a complete record from that organization. albuterol 108 (90 Base) MCG/ACT inhalerIndication s:COPD with acute exacerbation (CMS/HCC) ([facility]) Inhale 2 puffs every 6 (six) hours if needed for wheezing. 18 g 05/28/20 23 Active fluticasone (Flonase) 50 MCG/ACT nasal sprayIndications: RSV (respiratory syncytial virus infection) Administer 1 spray into each nostril in the morning. 16 g 2 09/18/20 23 Active Arnuity Ellipta 200 MCG/ACT inhalerIndication s:Mild intermittent asthma without complication INHALE 1 PUFF BY MOUTH EVERY DAY AT THE SAME TIME IN THE MORNING 30 each 11 12/02/19 25 Active montelukast (Singulair) 10 MG tabletIndications :Mild intermittent asthma without complication TAKE 1 TABLET BY MOUTH EVERY EVENING 30 tablet 3 03/02/20 25 Active atorvastatin (Lipitor) 10 MG tablet Take 1 tablet (10 mg) by mouth at bedtime. 90 tablet 2 05/27/20 25 Active metFORMIN (Glucophage) 1000 MG tabletIndications :Controlled type 2 diabetes mellitus with hyperglycemia, with long-term current use of insulin ([facility]) TAKE 1 TABLET BY MOUTH TWICE DAILY IN THE MORNING AND IN THE EVENING WITH MEALS 60 tablet 5 05/27/20 25 Active amLODIPine (Norvasc) 10 MG tabletIndications :Primary hypertension Take 1 tablet (10 mg) by mouth at bedtime. 30 tablet 5 05/27/20 25 Active aspirin (Aspirin Low Dose) 81 MG EC tabletIndications :At high risk for cardiovascular disease Take 1 tablet (81 mg) by mouth at bedtime. 90 tablet 1 05/27/20 25 Active chlorthalidone (Hygroton) 25 MG tablet Take 1 tablet (25 mg) by mouth in the morning. 30 tablet 3 05/27/20 25 Active citalopram (CeleXA) 20 MG tabletIndications :Anxiety and depression Take 1 tablet (20 mg) by mouth in the morning. 90 tablet 1 05/27/20 25 Active lisinopril 10 MG tablet Take 1 tablet (10 mg) by mouth Once per day. 30 tablet 06/03/20 25 026 Active Blood Glucose Monitoring Suppl (ONE TOUCH ULTRA 2) w/Device kitIndications:Ty pe 2 diabetes mellitus with hyperglycemia, with long-term current use of insulin (HCC) 1 each with breakfast and with evening meal. 1 kit 06/14/20 25 Active insulin pen needle (Pentips) 32G x 4 mm misc Use as instructed 100 each 06/14/20 25 Active Lancets (OneTouch Delica Plus [id number]) misc TEST BLOOD SUGAR THREE TIMES DAILY 100 each 06/14/20 25 Active glucose blood (OneTouch Ultra Test) test strip TEST BLOOD SUGAR THREE TIMES DAILY 100 strip 06/14/20 25 Active Alcohol Swabs (Alcohol Pads) 70 % pads Use as directed on skin 100 each 06/14/20 25 Active gabapentin (Neurontin) 600 MG tabletIndications :Diabetic polyneuropathy associated with type 2 diabetes mellitus (HCC) TAKE 1 TABLET BY MOUTH TWICE DAILY IN THE MORNING AND IN THE EVENING 60 tablet 1 07/07/20 25 Active lidocaine (Lidoderm) 5 % patchIndications: Complete tear of rotator cuff, unspecified laterality, unspecified whether traumatic Apply 1 patch topically Once per day. Remove & discard patch within 12 hours or as directed by . 30 patch 07/07/20 25 Active Blood Pressure Monitoring kitIndications:Be nign essential hypertension Use to measure BP daily 1 kit 07/13/20 25 Active allopurinol (Zyloprim) 100 MG tablet TAKE 1 TABLET BY MOUTH TWICE DAILY IN THE MORNING AND IN THE EVENING 60 tablet 5 07/14/20 25 Active insulin degludec (Tresiba FlexTouch) 100 UNIT/ML injectionIndicati ons:Type 2 diabetes mellitus with hyperglycemia, with long-term current use of insulin ([facility]) INJECT 14 UNITS SUBCUTANEOUSLY EVERY EVENING 15 mL 3 07/14/20 25 Active clotrimazole (Lotrimin) 1 % cream Apply topically 2 times daily for 28 days. 30 g 07/07/20 25 025 Active Problems Problem Noted Date Diagnosed Date Cognitive dysfunction 07/09/2025 Assessment & Plan (07/09/2025 9:09 AM EDT): It could be due to persistently high blood sugars over the past few months, uncontrolled diabetes and may be exacerbated depression after of his . It is very likely that he also has microvascular [employer]PING [employer] changes Will try to optimize chronic medical [...] Acute hematogenous osteomyelitis of right foot ( [facility]/HCC) 12/30/2023 Assessment & Plan (12/30/2023 11:35 AM EDT): - On right second toe, improving. - Continue Ertapenem via picc line until 01/26/24 - [facility] to monitor weekly and check CBC in 2 weeks. -Refer to ID/ Dr. Johnson. - Check CMP and CBC today. -Has appointment with a new Excavating Contractor on 12/31 at 10:30 am, information given [...] bone changes Order X-Ray Need margarette with sales operations lead, referral had been sent previously Get X-ray and Fu with me Assessment & Plan (07/24/2023 11:27 AM EDT): Start Duricef x 1 wk and will fu with him then Counseled about soaking feet in warm water with Epson salt Avoid poking lesions Fu 1 wk [place] of toe 07/24/2023 Assessment & Plan (09/18/2023 11:20 AM EST): Right second toe Pt need to reschedule appointment w/ sales operations lead Assessment & Plan (07/24/2023 11:30 AM EDT): R toe Refer to sales operations lead Will need custom made shoes Vitamin D deficiency 06/02/2023 Assessment & Plan (07/24/2023 11:06 AM EDT): Will start Vit-D supplementations x 6 month Encouraged outdoor exercise for sun exposure for 15 min /day Assessment & Plan (06/06/2023 8:54 AM EDT): Start Vit D supplementation x 6m Counseled re outdoor exercise COPD with acute exacerbation ([facility]) 3 Assessment & Plan (06/06/2023 [...] Joint injection clinic. Recommended acupuncture FU in . Encounter for screening colonoscopy 05/23/2023 Full thickness [...] airdroplets contact Stage 3 chronic kidney disease ([facility]) 05/22/2023 06/02/2023 Foot pain 07/08/2018 07/09/2025 Closed fracture of foot 11/03/201706/14 CKD (chronic kidney disease) stage 3, GFR 30-59 ml/min ([facility]) 05/03/2013 06/02/2023 Encounters * This document contains information received from the source organization and may not represent a complete record from that organization. Date Type Department Care Team Description 08/17/[address] [address] Marleny Beebe MD HDF appt 08/16/[address] [address] Marleny Beebe MD Durable Medical Equipment 08/11/[address] [address] Marleny Beebe MD Prior Authorization (Lidocaine patches) 08/10/2025 Results Follow-Up [address] [address] Marleny Beebe MD CBC auto differential, HOLD LT BLUE - POSSIBLE COAG, Hepatic Function Panel, Additional followed-up results: 9 08/10/2025 Travel 07/27/[address] [address] Marleny Beebe MD appt 07/20/[address] [address] Marleny Beebe MD FYI 07/15/[address] [address] Marleny Beebe MD Durable Medical Equipment (DME Script Diabetic Shoes([facility] 07/15/[address] [address] Marleny Beebe MD appt for 07/1807/14/2025 Telephone [facility] [address] [place] [phone] Marleny Beebe MD Appointment 07/14/2025 Refill [facility] [address] [place] [phone] Marleny Beebe MD 07/14/2025 Telephone [facility] [address] [place] [phone] Marleny Beebe MD DME 07/13/[address] [address] Marleny Beebe MD Insurance 07/13/2025 Travel 07/11/[address] [address] Marleny Beebe MD VNA services 07/11/2025 Orders Only [address] [address] Marleny Beebe MD Benign essential hypertension (Primary Dx) 07/08/2025 Patient Outreach [address] [address] Marleny Beebe MD Care Coordination (CHW outreach for SDOH housing search-LVM ) 07/07/2025 3:45 PM EDT Office Visit [address] [address] Marleny Beebe MD Type 2 diabetes mellitus [...] unspecified whether traumatic 07/07/2025 Travel 07/06/[address] [address] Marleny Beebe MD chart Prep 07/05/[address] [address] Marleny Beebe MD Appt change 06/29/2025 Patient Outreach [address] [address] Marleny Beebe MD Pre-visit Planning ((Unable to reach for PVP screening, LVM) to be completed in office ) 06/14/2025 3:20 PM EDT Office Visit [facility] [address] [address] Jasen Lamar MD Type 2 diabetes mellitus with hyperglycemia, with long-term current use of insulin (CMS/HCC) (Primary Dx); Elevated glucose 06/14/2025 Travel 06/14/[address] [address] Marleny Beebe MD telephone call 06/09/[address] [address] Marleny Beebe MD telephone call 06/03/2025 2:40 PM EDT [facility] [address] [address] Jasen Lamar MD Acute cough (Primary Dx); Wheezing; Chronic obstructive pulmonary disease, unspecified COPD type (CMS/HCC); Syncope and collapse 06/03/2025 Travel 06/02/2025 Patient Outreach [facility] [address] [place], [place] [phone] Marleny Beebe MD Transition Of Care (Tcm) (HDF unscheduled.) 06/02/[address] [address] Marleny Beebe MD Hospital Follow-up 05/27/2025 3:20 PM EDT [facility] [address] [phone] Judy Meraz NP Complete tear of rotator cuff, unspecified laterality, unspecified whether traumatic (Primary Dx); Chronic pain of left knee; Type 2 diabetes mellitus with hyperglycemia, with long-term current use of insulin (CMS/HCC); Benign essential hypertension; Moderate mixed hyperlipidemia not requiring statin therapy; PAD (peripheral artery disease) ([facility]); Recurrent major depressive episodes ([facility]); Diabetic polyneuropathy associated with type 2 diabetes mellitus ([facility]); Controlled type 2 diabetes mellitus with hyperglycemia, with long-term current use of insulin ([facility]); Primary hypertension; At high risk [...] Description 08/22/2025 2:30 PM EST Office Visit [facility] [address] [place], [place] [phone] Marleny Beebe MD [address] [place], [place] [phone] 08/31/2025 10:30 AM EST Office Visit [facility] [address] [place] [phone] Marleny Beebe MD [address] [place] [address] 09/07/2025 9:00 AM EST Medication Management [facility] [address] [place] [phone] Kavin Tan, PharmD [address] [place], [place] [phone] Health Maintenance Due Date Last Done Comments [...] Procedure Name Priority Date/Time Associated Diagnosis Comments CT CERVICAL SPINE WO CONTRAST Routine 08/11/2025 7:25 PM EDT HIGH SENSITIVITY TROPONIN I Routine 08/10/2025 2:23 PM EDT Benign essential hypertension DRUG MONITOR, PANEL 1, SCREEN, URINE Routine 08/10/2025 1:49 PM EDT Benign essential hypertension URINALYSIS, COMPLETE, WITH REFLEX TO CULTURE Routine 08/10/2025 1:49 PM EDT Benign essential hypertension CT ABDOMEN PELVIS WO CONTRAST Routine 08/10/2025 1:[address] HEAD WO CONTRAST Routine 08/10/2025 1 :05 PM EDT XR CHEST 1 VIEW Routine 08/10/2025 12:38 PM EDT LACTIC ACID Routine 08/10/2025 12:22 PM EDT Benign essential hypertension NT-PROBNP Routine 08/10/2025 11:06 AM EDT Benign essential [...] Recently Relevant to Health Maintenance Results * CT Cervical Spine w/o Contrast (08/11/2025 7:25 PM EDT) Anatomical Region Laterality Modality Spine, C-spine Computed Tomogra phy 08/11/2025 7:25 PM EDT Narrative 08/11/2025 7:27 PM EDT [address] [address] [address] Scan Report Signed Patient: Marin Valdez MR#: [id number] : 1950 Acct:[id number] Age/Sex: 74 / M ADM Date: 08/10/25 Loc: [facility] 474-[address]: Lonnie Lemus MD Ordering Physician: Lonnie Lemus MD Date of Service: 08/11/25 Procedure(s): CT cervical spine wo IV con Accession Number(s): [id number] cc: Marleny Beebe MD; Lonnie Lemus MD Report Number: [id number]: Total DLP = 581.00 mGy-cm Reason for Exam: fall at home /neck pain CLINICAL HISTORY: FALL AT HOME 08/10, NECK PAIN CT cervical spine without contrast Comparison: None provided Findings: There is minimal grade 1 anterolisthesis at C2-3. Otherwise normal alignment. Vertebral body height is maintained. No acute fracture in the cervical spine. Craniocervical junction is intact. Degenerative disc disease especially at C3-4. Right-sided facet arthropathy at C2-3, C3-4 and C4-5 levels with right neural foraminal stenosis at C3-4 and C4-5 Mild focal calcification of the posterior longitudinal ligament at C2-3. No acute findings on limited view of the intracranial contents. Prevertebral soft tissues within normal limits. Atherosclerotic vascular disease. Thyroid is small. No consolidation or effusion at the lung apices. IMPRESSION: 1. No acute fracture in the cervical spine. 2. Minimal grade 1 anterolisthesis at C2-3. 3. Degenerative changes, facet arthropathy and additional nonacute findings as described. This document has been electronically signed by: Brittani Olson MD on 08/11/2025 19:25:44 Dictated By: Brittani Olson MD Signed By: <Electronically signed by Brittani Olson MD in OV> 08/11/251925 DD/ 24 TD/TT: 08/11/251924 Director Airport: Procedure Note Donotuseinterpreter, Image - 08/11/[address] [address] [address] Scan Report Signed Patient: Royce Valdez#: [id number] : 2Acct:[id number] Age/Sex: 74 / MADM Date: 08/10/25 Loc: [facility] 474-[address]: Lonnie Lemus MD Ordering Physician: Lonnie Lemus MD Date of Service: 08/11/25 Procedure(s): CT cervical spine wo IV con Accession Number(s): [id number] cc: Marleny Beebe MD; Lonnie Lemus MD Report Number: [id number]: Total DLP = 581.00 mGy-cm Reason for Exam: fall at home /neck pain CLINICAL HISTORY: FALL AT HOME 08/10, NECK PAIN CT cervical spine without contrast Comparison: None provided Findings: There is minimal grade 1 anterolisthesis at C2-3. Otherwise normal alignment. Vertebral body height is maintained. No acute fracture in the cervical spine. Craniocervical junction is intact. Degenerative disc disease especially at C3-4. Right-sided facet arthropathy at C2-3, C3-4 and C4-5 levels with right neural foraminal stenosis at C3-4 and C4-5 Mild focal calcification of the posterior longitudinal ligament at C2-3. No acute findings on limited view of the intracranial contents. Prevertebral soft tissues within normal limits. Atherosclerotic vascular disease. Thyroid is small. No consolidation or effusion at the lung apices. IMPRESSION: 1. No acute fracture in the cervical spine. 2. Minimal grade 1 anterolisthesis at C2-3. 3. Degenerative changes, facet arthropathy and additional nonacute findings as described. This document has been electronically signed by: Brittani Olson MD on 08/11/2025 19:25:44 Dictated By: Brittani Olson MD Signed By: <Electronically signed by Brittani Olson MD in OV> 08/11/251925 DD/ 24 TD/TT: 08/11/251924 Director Airport: [facility] External Provider IMG CT PROCEDURES Final Result * High Sensitivity Troponin I (08/10/2025 2:23 PM EDT) Only the most recent of2 resultswithin the time period is included. TROPONIN I HIGH SENSITIVITY 6.6 <3.5 - 35.0 ng/L [facility] Comment:The [place] high sens itivity Troponin-I results should beused in conjunction with other diagnostic information suchas ECG, clinical observations and information, and patientsymptoms to aid in the diagnosis of [place]. 08/10/2025 2:23 PM EDT 08/10/2025 2:26 PM EDT us Generic External Data Provider LAB BLOOD ORDERAB LES Final Result [facility] [address] [place] [phone] * (ABNORMAL) Urinalysis, Complete, with Reflex to Culture (08/10/2025 1:49 PM EDT) Color Urine Yellow [facility] Appearance Urine Clear [facility] PH 5.0 5.0 - 9.0 [facility] Glucose Urine UA Negative Negative mg/dL [facility] Urine Blood Negative Negative [facility] Specific [place] - Urine 1.015 1.005 - 1.025 [facility] Urine Protein Trace Neg-Trace mg/dL [facility] Urine Ketones Trace Negative mg/dL [facility] Nitrite Urine Negative Negative [facility] Leukocyte Esterase Urine Small (1+)(A) Negative [facility] RBC Urine 0-2 0 - 2 /HPF [facility] Urine WBC 6-10(A) 0 - 5 /HPF [facility] Urine Squamous Epithelial Cell 0-2 0 - 2 /HPF [facility] Urine Bacteria None Seen None Seen [facility] Hyaline Casts, Urine 11-20 0 - 2 /LPF [facility] 08/10/2025 1:49 PM EDT 08/10/2025 1:52 PM EDT Narrative [facility] - 08/10/2025 2:09 PM EDT [id number], Catheterized us Generic External Data Provider LAB URINE ORDERAB LES Final Result [facility] [address] [place] [address] [phone] * Drug Monitoring, Panel 1, Screen, Urine (08/10/2025 1:49 PM EDT) Opiate Screen Urine Not Detected Not Detect [facility] Comment:Opiate cut-off is 30 0 ng/mL.Positive results are unconfirmed and should not be used fornon-medical purposes. Barbiturates, Urine Not Detected Not Detect [facility] Comment:Barbiturate cut-off is 200 ng/mL.Positive results are unconfirmed and should not be used fornon-medical purposes. Phencyclidine Screen Urine Not Detected Not Detect [facility] Comment:Phencyclidine cut-of f is 25 ng/mL.Positive results are unconfirmed and should not be used fornon-medical purposes. Amphetamine Screen Urine Not Detected Not Detect [facility] Comment:Amphetamine cut-off is 1000 ng/mL.Positive results are unconfirmed and should not be used fornon-medical purposes. Benzodiazepines Screen Urine Not Detected Not Detect [facility] Comment:Benzodiazepine cut-o ff is 200 ng/mL.Positive results are unconfirmed and should not be used fornon-medical purposes. Cocaine Screen Urine Not Detected Not Detect [facility] Comment:Cocaine cut-off is 3 00 ng/mL.Positive results are unconfirmed and should not be used fornon-medical purposes. Cannabinoid Screen Urine Not Detected Not Detect [facility] Comment:Cannabinoid cut-off is 50 ng/mL.Positive results are unconfirmed and should not be used fornon-medical purposes. Methadone Screen, Urine Not Detected Not Detect ng/mL [facility] Comment:Methadone cut-off is 300 ng/mL.Positive results are unconfirmed and should not be used fornon-medical purposes. FENTANYL URINE Not Detected Not Detect [facility] Comment:Fentanyl cut-off is 1 ng/mL.Positive results are unconfirmed and should not be used fornon-medical purposes. Oxycodone Urine Screen Not Detected Not Detect ng/mL [facility] Comment:Oxycodone cut-off is 100 ng/mL.Positive results are unconfirmed and should not be used fornon-medical purposes. Buprenorphine Screen Not Detected Not Detect ng/mL [facility] Comment:Buprenorphine cut-of f is 5 ng/mL.Positive results are unconfirmed and should not be used fornon-medical purposes. 08/10/2025 1:49 PM EDT 08/10/2025 1:52 PM EDT us Generic External Data Provider LAB URINE ORDERAB LES Final Result Performing Organization Address City/[facility] de Phone Number [facility] [address] [place] [address] [phone] * CT Head w/o Contrast (08/10/2025 1:05 PM EDT) Anatomical Region Laterality Modality Head, Neck Computed Tomogra phy 08/10/2025 1:05 PM EDT Narrative 08/10/2025 1:45 PM EDT [place] [address] [address] Scan Report Signed Patient: Marin Valdez MR#: [id number] : 1950 Acct:[id number] Age/Sex: 74 / M ADM Date: 08/10/25 Loc: HO.ED Attending Dr: Ordering Physician: Jennifer Barahona Date of Service: 08/10/25 Procedure(s): CT head/brain wo IV con Accession Number(s): [id number] cc: Marleny Beebe MD; Jennifer Barahona Report Number: [id number]: Total DLP = 887.00 mGy-cm Reason for Exam: dizzy EXAMINATION: CT HEAD WITHOUT IV CONTRAST HISTORY: dizzy. TECHNIQUE: Unenhanced helical CT of the head was performed per standard departmental protocol. Coronal and sagittal reformats of the head were also evaluated. One or more of the following techniques was used for dose reduction: Automated exposure control, adjustment of the mA and/or kV according to patient size, use of iterative reconstruction technique. DLP: 882 mGy-cm COMPARISON: An is made with the prior examination dated 07/16/2017. FINDINGS: BRAIN: There is mild prominence of the ventricular system and cortical sulci, consistent with atrophy. Scattered periventricular and subcortical white matter hypodensities are noted which are nonspecific, but often seen in the setting of small vessel ischemic disease. There is no mass effect or midline shift. No intra- or extra-axial fluid collections are identified. SINUSES: The visualized paranasal sinuses are clear. There is partial opacification of the mastoid air cells. The middle ear cavities are normally pneumatized. ORBITS: The visualized orbits are unremarkable. BONES/SOFT TISSUES: The extracranial soft tissues are unremarkable. The calvarium is intact. No suspicious lytic or sclerotic lesions. CT/CT head/brain wo IV con IMPRESSION: No acute intracranial abnormality. Electronically signed by: Braydon Cassidy MD 08/10/2025 01:42 PM EDT Dictated By: Braydon Cassidy MD Signed By: <Electronically signed by Braydon Cassidy MD in OV> 08/10/25 1342 DD/ 1305 TD/TT: 08/10/25 1315 Director Airport: Procedure Note Donotuseinterpreter, Image - 08/10/[address] [address] [address] Scan Report Signed Patient: Royce Valdez#: [id number] : 2Acct:[id number] Age/Sex: 74 / MADM Date: 08/10/25 Loc: HO.ED Attending Dr: Ordering Physician: Jennifer Barahona Date of Service: 08/10/25 Procedure(s): CT head/brain wo IV con Accession Number(s): [id number] cc: Marleny Beebe MD; Jennifer Barahona Report Number: [id number]: Total DLP = 887.00 mGy-cm Reason for Exam: dizzy EXAMINATION: CT HEAD WITHOUT IV CONTRAST HISTORY: dizzy. TECHNIQUE: Unenhanced helical CT of the head was performed per standard departmental protocol. Coronal and sagittal reformats of the head were also evaluated. One or more of the following techniques was used for dose reduction: Automated exposure control, adjustment of the mA and/or kV according to patient size, use of iterative reconstruction technique. DLP: 882 mGy-cm COMPARISON: An is made with the prior examination dated 07/16/2017. FINDINGS: BRAIN: There is mild prominence of the ventricular system and cortical sulci, consistent with atrophy. Scattered periventricular and subcortical white matter hypodensities are noted which are nonspecific, but often seen in the setting of small vessel ischemic disease. There is no mass effect or midline shift. No intra- or extra-axial fluid collections are identified. SINUSES: The visualized paranasal sinuses are clear. There is partial opacification of the mastoid air cells. The middle ear cavities are normally pneumatized. ORBITS: The visualized orbits are unremarkable. BONES/SOFT TISSUES: The extracranial soft tissues are unremarkable. The calvarium is intact. No suspicious lytic or sclerotic lesions. CT/CT head/brain wo IV con IMPRESSION: No acute intracranial abnormality. Electronically signed by: Braydon Cassidy MD 08/10/2025 01:42 PM EDT Dictated By: Braydon Cassidy MD Signed By: <Electronically signed by Braydon Cassidy MD in OV> 08/10/25 1342 DD/ 1305 TD/TT: 08/10/25 1315 Director Airport: [facility] External Provider IMG CT PROCEDURES Final Result * CT Abdomen Pelvis w/o Contrast (08/10/2025 1:05 PM EDT) Anatomical Region Laterality Modality Body, Pelvis, Abdomen Computed T omography 08/10/2025 1:05 PM EDT Narrative 08/10/2025 1:52 PM EDT [address] [address] [address] Scan Report Signed Patient: Marin Valdez MR#: [id number] : 1950 Acct:[id number] Age/Sex: 74 / M ADM Date: 08/10/25 Loc: HO.ED Attending Dr: Ordering Physician: Jennifer Barahona Date of Service: 08/10/25 Procedure(s): CT abdomen pelvis wo IV con Accession Number(s): [id number] cc: Marleny Beebe MD; Jennifer Barahona Report Number: [id number]: Total DLP = 1129.00 mGy-cm Reason for Exam: OLIVIA, r/o obstruction EXAMINATION: CT ABDOMEN AND PELVIS WITHOUT CONTRAST CLINICAL INFORMATION: Acute kidney injury COMPARISON: None available. TECHNIQUE: Multidetector volumetric imaging was performed from the superior aspect of the liver through the pubic symphysis. Sagittal and coronal reformatted images were obtained on the technologist's workstation. This CT examination was performed using dose optimization techniques as appropriate, variously including the following: *Automated exposure control *Adjustment of mA and/or kV according to patient size (this includes techniques or standardized protocols for targeted exams where dose is matched to indication/reason for exam; i.e. extremities or head) *Use of iterative reconstruction technique FINDINGS: LUNG BASES: The visualized lung bases are unremarkable. LIVER, GALLBLADDER, AND BILIARY TREE: The liver is normal in size, shape, and attenuation. No focal hepatic lesion or biliary ductal dilatation is present. The gallbladder is unremarkable with no evidence of radiopaque gallstones, gallbladder wall thickening, or obvious pericholecystic inflammatory changes. PANCREAS: Unremarkable. SPLEEN: Unremarkable. ADRENAL GLANDS: Unremarkable. KIDNEYS AND URETERS: There is a small exophytic cyst in the anteromedial lower pole right kidney. There is no hydronephrosis. There is no nephrolithiasis. BLADDER: Unremarkable. GASTROINTESTINAL TRACT: There is a ventral epigastric region hernia. There is dehiscent through the linea alba left of midline measuring 5 x 6 cm. Hernia sac contains anterior wall transverse colon where there appears to be a surgical anastomosis. It also involves a short segment of small bowel. The hernia sac measures 10 x 3 x 6 cm (CC by AP by transverse). There is no associated bowel dilation or fat stranding. There is a second hernia right of midline extending medial to the rectus abdominis muscle through 3.5 cm defect. Hernia sac contains mesenteric and small bowel. The hernia sac measures 9 x 5 x 10 cm (CC by AP by transverse). There is no dilation of the proximal small bowel. LYMPH NODES: Normal. VASCULAR: Mild multifocal vascular calcifications are present. PELVIC VISCERA: Unremarkable. OSSEOUS STRUCTURES: Degenerative changes are present throughout the visible spine most advanced at L4-5 where there is severe disc space narrowing with endplate osteophytes and facet arthropathy. There is a transitional L5 segment with sacralization on the right greater than left. CT/CT abdomen pelvis wo IV con IMPRESSION: No hydronephrosis or renal lithiasis. 2 ventral hernias containing bowel, as detailed above. No evidence of obstruction. Fleischner guidelines were followed. Electronically signed by: Lauro Hopkins MD 08/10/2025 01:49 PM EDT RP Dictated By: Lauro Hopkins MD Signed By: <Electronically signed by Lauro Hopkins MD in OV> 08/10/25 1349 DD/ 1305 TD/TT: 08/10/25 1315 Director Airport: Procedure Note Donotuseinterpreter, Image - 08/10/[address] [place] [address] [address] Scan Report Signed Patient: Marin ValdezMR#: [id number] : 1950cct:[id number] Age/Sex: 74 / MADM Date: 08/10/25 Loc: HO.ED Attending Dr: Ordering Physician: Jennifer Barahona Date of Service: 08/10/25 Procedure(s): CT abdomen pelvis wo IV con Accession Number(s): [id number] cc: Marleny Beebe MD; Jennifer Barahona Report Number: [id number]: Total DLP = 1129.00 mGy-cm Reason for Exam: OLIVIA, r/o obstruction EXAMINATION: CT ABDOMEN AND PELVIS WITHOUT CONTRAST CLINICAL INFORMATION: Acute kidney injury COMPARISON: None available. TECHNIQUE: Multidetector volumetric imaging was performed from the superior aspect of the liver through the pubic symphysis. Sagittal and coronal reformatted images were obtained on the technologist's workstation. This CT examination was performed using dose optimization techniques as appropriate, variously including the following: *Automated exposure control *Adjustment of mA and/or kV according to patient size (this includes techniques or standardized protocols for targeted exams where dose is matched to indication/reason for exam; i.e. extremities or head) *Use of iterative reconstruction technique FINDINGS: LUNG BASES: The visualized lung bases are unremarkable. LIVER, GALLBLADDER, AND BILIARY TREE: The liver is normal in size, shape, and attenuation. No focal hepatic lesion or biliary ductal dilatation is present. The gallbladder is unremarkable with no evidence of radiopaque gallstones, gallbladder wall thickening, or obvious pericholecystic inflammatory changes. PANCREAS: Unremarkable. SPLEEN: Unremarkable. ADRENAL GLANDS: Unremarkable. KIDNEYS AND URETERS: There is a small exophytic cyst in the anteromedial lower pole right kidney. There is no hydronephrosis. There is no nephrolithiasis. BLADDER: Unremarkable. GASTROINTESTINAL TRACT: There is a ventral epigastric region hernia. There is dehiscent through the linea alba left of midline measuring 5 x 6 cm. Hernia sac contains anterior wall transverse colon where there appears to be a surgical anastomosis. It also involves a short segment of small bowel. The hernia sac measures 10 x 3 x 6 cm (CC by AP by transverse). There is no associated bowel dilation or fat stranding. There is a second hernia right of midline extending medial to the rectus abdominis muscle through 3.5 cm defect. Hernia sac contains mesenteric and small bowel. The hernia sac measures 9 x 5 x 10 cm (CC by AP by transverse). There is no dilation of the proximal small bowel. LYMPH NODES: Normal. VASCULAR: Mild multifocal vascular calcifications are present. PELVIC VISCERA: Unremarkable. OSSEOUS STRUCTURES: Degenerative changes are present throughout the visible spine most advanced at L4-5 where there is severe disc space narrowing with endplate osteophytes and facet arthropathy. There is a transitional L5 segment with sacralization on the right greater than left. CT/CT abdomen pelvis wo IV con IMPRESSION: No hydronephrosis or renal lithiasis. 2 ventral hernias containing bowel, as detailed above. No evidence of obstruction. Fleischner guidelines were followed. Electronically signed by: Lauro Hopkins MD 08/10/2025 01:49 PM EDT RP Dictated By: Lauro Hopkins MD Signed By: <Electronically signed by Lauro Hopkins MD in OV> 08/10/25 1349 DD/ 1305 TD/TT: 08/10/25 1315 Director Airport: [facility] External Provider IMG CT PROCEDURES Final Result * XR Chest 1 View (08/10/2025 12:38 PM EDT) Anatomical Region Laterality Modality Chest Radiographic Guillermina ging 08/10/2025 12:3 8 PM EDT Narrative 08/10/2025 12:59 PM EDT [place] [address] XRay Report Signed Patient: Marin Valdez MR#: [id number] : 1950 Acct:[id number] Age/Sex: 74 / M ADM Date: 08/10/25 Loc: .ED Attending Dr: Ordering Physician: Jennifer Barahona Date of Service: 08/10/25 Procedure(s): XR chest 1V Accession Number(s): [id number] cc: Marleny Beebe MD; Jennifer Barahona Reason for Exam: dizzy EXAMINATION: XR CHEST CLINICAL INFORMATION: dizzy COMPARISON: May 08, 2023 TECHNIQUE: Frontal view of the chest was obtained. FINDINGS: Pulmonary reticular pattern. Probable nipple opacity, left lower hemithorax. No pleural effusion or pneumothorax. No hyperinflation. Cardiomediastinal silhouette size is normal. Multilevel spondylosis. Severe degenerative changes in the left shoulder. XR/XR chest 1V IMPRESSION: No acute airspace disease. Electronically signed by: Vasiliy Mcdonald MD 08/10/2025 12:55 PM EDT RP Dictated By: Vasiliy Singh MD Signed By: <Electronically signed by Vasiliy Cruz MD in OV> 08/10/25 1255 DD/ 1238 TD/TT: 08/10/25 1252 Director Airport: Procedure Note Donotuseinterpreter, Image - 08/10/[address] [address] XRay Report Signed Patient: Marin ValdezMR#: [id number] : 1950cct:[id number] Age/Sex: 74 / MADM Date: 08/10/25 Loc: .ED Attending Dr: Ordering Physician: Jennifer Barahona Date of Service: 08/10/25 Procedure(s): XR chest 1V Accession Number(s): [id number] cc: Marleny Beebe MD; Jennifer Barahona Reason for Exam: dizzy EXAMINATION: XR CHEST CLINICAL INFORMATION: dizzy COMPARISON: May 08, 2023 TECHNIQUE: Frontal view of the chest was obtained. FINDINGS: Pulmonary reticular pattern. Probable nipple opacity, left lower hemithorax. No pleural effusion or pneumothorax. No hyperinflation. Cardiomediastinal silhouette size is normal. Multilevel spondylosis. Severe degenerative changes in the left shoulder. XR/XR chest 1V IMPRESSION: No acute airspace disease. Electronically signed by: Vasiliy Mcdonald MD 08/10/2025 12:55 PM EDT RP Dictated By: Vasiliy Singh MD Signed By: <Electronically signed by Vasiliy Cruz MDin OV> 08/10/25 1255 DD/ 1238 TD/TT: 08/10/25 125 Director Airport: [facility] External Provider IMG XR PROCEDURES Final Result * Lactic Acid (08/10/2025 12:22 PM EDT) Lactic Acid 1.7 0.5 - 2.0 mmol/L [facility] 08/10/2025 12:2 2 PM EDT 08/10/2025 12:29 PM EDT Generic External Data Provider LAB BLOOD ORDERAB LES Final Result Performing Organization Address [facility]/ZIP Co de Phone Number [facility] [address] [place] [phone] * NT-proBNP (08/10/2025 11:06 AM EDT) NT-proBNP 180.3 <300 pg/mL [facility] Comment:Reference Range:Age Group (years) NT-proBNP (pg/ml) InterpretationAll <300 Negative: HF unlikelyFor patients presenting to the ED with clinical suspicion ofnew onset or worsening HF, see below:18 to <50 >299.9 to <450.0 Grayzone: [id number] to 75 >299.9 to <900.0 other causes of>75 >299.9 to <1800.0 NT-proBNP [id number] to <50 >449.9 Positive: HF [id number] >899.9>75 >1799.9Note: Elevated NT-proBNP levels should be interpreted inthe context of other clinical information. 08/10/2025 11:0 6 AM EDT 08/10/2025 11:13 AM EDT Generic External Data Provider LAB BLOOD ORDERAB LES Final Result Performing Organization Address City/[facility]/ZIP Co de Phone Number [facility] [address] [place] [phone] * (ABNORMAL) CBC auto differential (08/10/2025 11:06 AM EDT) Only the most recent of2 resultswithin the time period is included. White Blood Count 12.7(H) 4.8 - 10.8 X10*3/uL [facility] Red Blood Count 3.83(L) 4.60 - 5.80 X10*6/uL [facility] Hemoglobin 11.2(L) 14.0 - 18.0 g/dl [facility] Hematocrit 33.2(L) 42.0 - 52.0 % [facility] Mean Corpuscular Volume 86.7 80.0 - 98.0 fL [facility] Mean Corpuscular Hemoglobin 29.2 27.0 - 33.0 pg [facility] Mean Corpuscular HGB Conc 33.7 31.0 - 36.0 g/dl [facility] Red Cell Distribution Width 13.9 11.0 - 16.0 % [facility] Platelet Count 233 160 - 400 X10*3/uL [facility] Mean Platelet Volume 10.5 9.4 - 12.4 fL [facility] Neutrophils Percent Auto 61.7 45 - 73 % [facility] Imm Gran Pct Auto 0.9(H) 0.0 - 0.4 % [facility] Lymphocytes Percent Auto 26.9 20 - 40 % [facility] Monocytes Percent Auto 9.3 2 - 11 % [facility] Eosinophils Percent Auto 1.0 0 - 4 % [facility] Basophils Percent Auto 0.2 0 - 2 % [facility] NRBC Pct Auto 0.0 0.0 - 0.2 /100WBC [facility] Neutrophils Absolute Auto 7.8 2.0 - 8.3 x10*3/uL [facility] Imm Gran Abs Auto 0.11(H) 0.00 - 0.03 X10*3/uL [facility] Lymphocytes Absolute Auto 3.4 1.2 - 4.9 X10*3/uL [facility] Monocytes Absolute Auto 1.2 0.1 - 1.2 X10*3/uL [facility] Eosinophils Absolute Auto 0.1 0.0 - 0.4 X10*3/uL [facility] Basophils Absolute Auto 0.0 0.0 - 0.2 X10*3/uL [facility] NRBC Abs Auto 0.000 0.0 - 0.012 X10*3/uL [facility] 08/10/2025 11:0 6 AM EDT 08/10/2025 11:12 AM EDT Generic External Data Provider LAB BLOOD ORDERAB LES Final Result Performing Organization Address [facility] Co de Phone Number [facility] [address] [place] [phone] * (ABNORMAL) Magnesium (08/10/2025 11:06 AM EDT) Magnesium 1.5(L) 1.6 - 2.6 mg/dL [facility] 08/10/2025 11:0 6 AM EDT 08/10/2025 11:12 AM EDT Generic External Data Provider LAB BLOOD ORDERAB LES Final Result Performing Organization Address [facility] de Phone Number [facility] [address] [place] [phone] * Creatine Kinase, Total (08/10/2025 11:06 AM EDT) Creatine Kinase Total 109 38 - 174 U/L [facility] 08/10/2025 11:0 6 AM EDT 08/10/2025 11:12 AM EDT Generic External Data Provider LAB BLOOD ORDERAB LES Final Result Performing Organization Address [facility] de Phone Number [facility] [address] [place] [phone] * Hepatic Function Panel (08/10/2025 11:06 AM EDT) Bilirubin, Total 0.4 0.0 - 1.0 mg/dL [facility] Bilirubin, Direct 0.1 0.0 - 0.5 mg/dL [facility] Aspartate Amino Transferase 21 5 - 37 U/L [facility] Alanine Aminotransferase 19 0 - 40 U/L [facility] Total Protein 6.7 6.5 - 8.0 g/dL [facility] Albumin Level 3.8 3.5 - 5.0 g/dL [facility] Alkaline Phosphatase 67 39 - 117 U/L [facility] 08/10/2025 11:0 6 AM EDT 08/10/2025 11:12 AM EDT us Generic External Data Provider LAB BLOOD ORDERAB LES Final Result [facility] [address] [place] [phone] * (ABNORMAL) Basic Metabolic Panel (08/10/2025 11:06 AM EDT) Sodium 133(L) 135 - 145 mmol/L [facility] Potassium 4.1 3.3 - 5.1 mmol/L [facility] Chloride 100 96 - 108 mmol/L [facility] Carbon Dioxide 22 22 - 29 mmol/L [facility] Anion Gap 15 12 - 20 [facility] Urea Nitrogen (BUN) 70(H) 9 - 16 mg/dL [facility] Creatinine, Serum 3.91(H) 0.5 - 1.4 mg/dL [facility] Creatinine Clr Calc Pharmacy 22.3 [facility] Comment:eGFR (calculated fro m the MDRD study equation) and eCrCl(calculated from the Cockcroft-Gault equation) are based ondifferent parameters and may not yield comparable results.If eCrCl result is absurd, please check patient'sheight/weight. Estimated Glomerular Filt Rate 15 [facility] Comment:Chronic Kidney Disea se: Estimated GFR < 60 mL/min/1.80a1Kpbpol Kidney Disease: Estimated GFR < 15 mL/min/1.73m2 Glucose 148(H) 60 - 115 mg/dL [facility] Calcium 7.9(L) 8.4 - 10.2 mg/dL [facility] 08/10/2025 11:0 6 AM EDT 08/10/2025 11:12 AM EDT Generic External Data Provider LAB BLOOD ORDERAB LES Final Result Performing Organization Address [facility] Co de Phone Number [facility] [address] [place] [phone] * HOLD LT BLUE - POSSIBLE COAG (08/10/2025 11:05 AM EDT) Hold Lt Blue - Possible Coag SEE NOTE [facility] Comment:Specimen will be hel d untested for 4 hours. Call Hematologyif testing is desired. 08/10/2025 11:0 5 AM EDT 08/10/2025 11:16 AM EDT Generic External Data Provider LAB BLOOD ORDERAB LES Final Result Performing Organization Address [facility] de Phone Number [facility] [address] [place] [phone] * (ABNORMAL) POCT glucose manually resulted [...] NOW Rapid Molecular) (06/03/2025 2:48 PM EDT) [facility] Influenza B Negative Negative, Indeterminate [facility] Swab 06/03/2025 2:48 PM EDT us Jasen Lamar MD POINT OF CARE TEST ENTER/EDIT OR DERABLES Final Result Performing Organization Address [facility] de Phone Number [facility] [address] [place] [phone] * Influenza A (ID NOW Rapid Molecular) (06/03/2025 2:48 PM EDT) [facility] Influenza A Negative Negative, Indeterminate [facility] Swab 06/03/2025 2:48 PM EDT us Jasen Lamar MD POINT OF CARE TEST ENTER/EDIT OR DERABLES Final Result Performing Organization Address [facility] de Phone Number [facility] [address] [place] [phone] * POCT Rapid COVID Ag (06/03/2025 2:48 PM EDT) [facility] Rapid COVID Ag Negative [facility] Swab 06/03/2025 2:48 PM EDT Jasen Lamar MD POINT OF CARE TEST ENTER/EDIT OR DERABLES Final Result Performing Organization Address [facility] de Phone Number [facility] [address] [place] [phone] * (ABNORMAL) Comprehensive Metabolic Panel (05/27/2025 4:11 PM EDT) [facility] Sodium 138 135 - 145 mmol/L [facility] Potassium 5.0 3.3 - 5.1 mmol/L [facility] Comment:Mild Hemolysis.Inter pret result with caution Chloride 103 96 - 108 mmol/L [facility] Carbon Dioxide 23 22 - 29 mmol/L [facility] Anion Gap 17 12 - 20 [facility] Urea Nitrogen (BUN) 17(H) 9 - 16 mg/dL [facility] Creatinine, Serum 1.01 0.5 - 1.4 mg/dL [facility] Estimated Glomerular Filt Rate >60 [facility] Comment:Chronic Kidney Disea se: Estimated GFR < 60 mL/min/1.37e4Brocaz Kidney Disease: Estimated GFR < 15 mL/min/1.73m2 Glucose 138(H) 60 - 115 mg/dL [facility] Calcium 8.5 8.4 - 10.2 mg/dL [facility] Bilirubin, Total 0.4 0.0 - 1.0 mg/dL [facility] Aspartate Amino Transferase 36 5 - 37 U/L [facility] Comment:Mild Hemolysis.Inter pret result with caution Alanine Aminotransferase 18 0 - 40 U/L [facility] Total Protein 7.7 6.5 - 8.0 g/dL [facility] Comment:Mild Hemolysis.Inter pret result with caution Albumin Level 4.0 3.5 - 5.0 g/dL [facility] Alkaline Phosphatase 72 39 - 117 U/L [facility] Blood Venous blood specimen / Unknown 05/27/2025 4:11 PM EDT 05/27/2025 5:41 PM EDT us Judy Meraz CLIENT SERVICE ASSOCIATE LAB BLOOD ORDERABLES Final Resul t [facility] [address] [place] [phone] * Lipid Panel with Reflex to Direct LDL (05/23/2023 11:16 AM EDT) Triglycerides 91 mg/dL [facility] Comment:Desirable Triglyceri de: less than 150 mg/dLBorderline High Triglyceride 150-199 mg/dLHigh Triglyceride: 200-499 mg/dLVery High Triglyceride: greater than or equal to 5OO mg/dL Cholesterol 129 mg/dL [facility] Comment:Desirable Cholestero l: less than 200 mg/dLBorderline High Cholesterol: 200-239 mg/dLHigh Cholesterol: greater than 239 mg/dL LDL Cholesterol Calculated 73 mg/dl [facility] Comment:Desirable LDL: less than 100 mg/dLNear Optimal/Above Optimal LDL: 110- 129 mg/dLBorderline High LDL: 130-159 mg/dLHigh LDL: 160-189 mg/dLVery High LDL: greater than or equal to 190 mg/dL HDL Cholesterol 38 mg/dL [facility] Comment:Desirable HDL: great er than 40 mg/dL Note: This HDL assay may give artificially low results in patients with liver disease. Blood 05/23/2023 11:1 6 AM EDT 05/23/2023 1:49 PM EDT us Marleny Beebe MD LAB BLOOD ORDERABLES Fin al Result Performing Organization Address [facility]/ZIP Co de Phone Number [facility] [address] [place] [phone] * Hepatitis Panel, General (05/23/2023 11:16 AM EDT) Hepatitis A IgM Nonreactive Nonreactive [facility] Comment:IgM antibodies to COTTO V not detected; does not exclude earlyacute or recovered HAV infection. ~Hepatitis B Surface Antibody REACTIVE Nonreactive [facility] Comment:REACTIVE: > 11.99 mI U/mL Hepatitis B Core Antibody Reactive Nonreactive [facility] Comment:Presumptive evidence of anti-HBc. Hepatitis C Antibody Nonreactive Nonreactive [facility] Comment:Antibodies to HCV no t detected; does not exclude early acuteHCV infection. Hepatitis B Surface Ag Negative Negative [facility] Blood 05/23/2023 11:1 6 AM EDT 05/23/2023 1:49 PM EDT us Marleny Beebe MD LAB BLOOD ORDERABLES Fin al Result Performing Organization Address City/[facility]/ZIP Co de Phone Number [facility] [address] [place] [phone] * Albumin, Random Urine W/Creatinine (05/23/2023 11:15 AM EDT) Creatinine, Urine 68.04 mg/dL [facility] Microalbumin Urine 12.0 mg/L [facility] Microalbum Creatinine Ratio Ur 17.6 ug/mg cr [facility] Comment:Albumin/Creatinine R atio Reference Ranges: Normal: < 30 ug/mg creatinine Microalbuminuria: 30 - 300 ug/mg creatinineClinical Albuminuria: > 300 ug/mg creatinine 05/23/2023 11:1 5 AM EDT 05/23/2023 4:32 PM EDT us Marleny Beebe MD LAB URINE ORDERABLES Fin al Result [facility] [address] [place] [phone] from Last 3 Months or Most Recently Relevant to Health Maintenance Insurance [facility] ST[employer]ARD [facility] (HMO D-SNP) DENTAL - HSN FULL (MEDICAID) * Guarantor: Marin Valdez Account Type Relation to Patient Date of Phone Billing Address Personal/Family Self [address] Care Teams Eligibility Analyst Relationship Specialty Start Date End Date Marleny Beebe MD [address], [place] PCP - General Family Medicine 12/25/16 Kavin Tan, NahumD [address], [place] Pharmacist Pharmacy 07/13/25
--- OUTSIDE RECORDS SUMMARY | 2025-08-17 17:41 | XMS_ITS | Encounter Summary ---
Author Organization [employer] Address [address] [facility] 7t [place] [address] Care Team Providers Care Concert Pianist Name Role Phone Marleny Beebe MD Primary Care Provider + Kavin Tan PharmD Unavailable [phone] Encounter Details Date Type Department Care Team (Late st Contact Info) Description 05/26/2023 Orders Only [facility] MED & PEDS [address] [place], [place] [phone] Dejah Stewart LPN Social History Tobacco Use [...] Description 08/22/2025 2:30 PM EST Office Visit [facility] MEDICINE [address] [place] [address] [phone] Marleny Beebe MD [address] [place] [phone] 08/31/2025 10:30 AM EST Office Visit [facility] MEDICINE [address] [place] [phone] Marleny Beebe MD [address] [place] [address] 538[address] 09/07/2025 9:00 AM EST Medication Management [facility] MEDICINE [address] [place], [place] [phone] Kavin Tan, PharmMonica [address] [place], [place] [phone] documented as of this encounter Visit Diagnoses Not on filedocumented in this encounter Care Teams Concert Pianist Relationship Specialty Start Date End Date Marleny Beebe MD [address] [place] [address] [phone] PCP - General Family Medicine 12/25/16 Kavin Tan, PharmD [address] [place] [address] [phone] Pharmacist Pharmacy 07/13/25 documented as of this encounter
--- OUTSIDE RECORDS SUMMARY | 2025-08-17 17:41 | XMS_ITS | Encounter Summary ---
Author Organization [employer] Address [address] [facility] 7t [place] [address] Care Team Providers Care Prenatal Teacher Name Role Phone Marleny Beebe MD Primary Care Provider + Kavin Tan PharmD Unavailable [phone] Reason for Visit * Reason Onset Date Comments HDF appt 08/17/2025 Encounter Details Date Type Department Care Team ([facility] st Contact Info) Description 08/17/2025 Telephone [facility] MEDICINE [address] [place] [address] Marleny Beebe MD [address] [place], [place] [phone] HDF appt Social History Tobacco Use Types Packs/Day Years [...] Telephone Encounter - Laverne Roque RN - 08/17/2025 12:32 PM EST TC placed to patient [phone] to schedule HDF. Patient did not answer, RN left VM requesting CBto red team nurses. TC placed to [phone], spoke to Jadon (on HIPAA) to schedule HDF. RN scheduled HDF for 08/22/25 at 2:30pm d/t patient needing to repeat BMP in 1 week, RN also kept appointment for 08/31/25 for PE. Jadon verbalized understanding and agreed to HDF asppt. ----- Message from Marleny Beebe MD sent at 08/15/2025 9:00 AM EST ----- See addendum to [facility] discharge, needs HDF documented in this encounter Plan of Treatment Upcoming Encounters Date Type Department Care Team (Late st Contact Info) Description 08/22/2025 2:30 PM EST Office Visit [facility] MEDICINE [address] [place] [phone] Marleny Beebe MD [address] [place] [address] 08/31/2025 10:30 AM EST Office Visit [address] [phone] Marleny Beebe MD [address] [place] [phone] 09/07/2025 9:00 AM EST Medication Management [address] [phone] Kavin Tan, PharmD [address] [place] [phone] documented as of this encounter Visit Diagnoses Not on filedocumented in this encounter Care Teams Prenatal Teacher Relationship Specialty Start Date End Date Marleny Beebe MD [address] [place] [address] [phone] PCP - General Family Medicine 12/25/16 Kavin Tan, PharmD [address] [place] [address] [phone] Pharmacist Pharmacy 07/13/25 documented as of this encounter
--- OUTSIDE RECORDS SUMMARY | 2025-08-17 17:41 | XMS_ITS | Encounter Summary ---
Author Organization [employer] Address [address] [facility] [address] 7t [place] [address] Care Team Providers Care Window Air Conditioner Installer Name Role Phone Marleny Beebe MD Primary Care Provider + Kavin Tan PharmD Unavailable [phone] Encounter Details Date Type Department Care Team (Late st Contact Info) Description 07/11/2025 Orders Only [facility] MEDICINE [address] [place] [address] Marleny Beebe MD [address] [place], [place] [phone] Benign essential hypertension (Primary Dx) Social History [...] Description 08/22/2025 2:30 PM EST Office Visit [facility] MEDICINE [address] [place] [phone] Marleny Beebe MD [address] [place] [phone] 08/31/2025 10:30 AM EST Office Visit [facility] MEDICINE [address] [place] [address] [phone] Malreny Beebe MD [address] [place] [address] 09/07/2025 9:00 AM EST Medication Management [facility] MEDICINE [address] [place] [address] Kavin Tan, PharmD [address] [place] [address] documented as of this encounter Procedures Procedure Name Priority Date/Time Associated Diagnosis Comments CT CERVICAL SPINE WO CONTRAST Routine 08/11/2025 7:25 PM EDT HIGH SENSITIVITY TROPONIN I Routine 08/10/2025 2:23 PM EDT Benign essential hypertension URINALYSIS, COMPLETE, WITH REFLEX TO CULTURE Routine 08/10/2025 1:49 PM EDT Benign essential hypertension DRUG MONITOR, PANEL 1, SCREEN, URINE Routine 08/10/2025 1:49 PM EDT Benign essential hypertension CT HEAD WO CONTRAST Routine 08/10/2025 1 :[address] ABDOMEN PELVIS WO CONTRAST Routine 08/10/2025 1:05 PM EDT XR CHEST 1 VIEW Routine 08/10/2025 12:38 PM EDT LACTIC ACID Routine 08/10/2025 12:22 PM EDT Benign essential hypertension HIGH SENSITIVITY TROPONIN I Routine 08/10/2025 11:06 AM EDT Benign essential hypertension NT-PROBNP Routine 08/10/2025 [...] hypertension documented in this encounter Results * CT Cervical Spine w/o Contrast (08/11/2025 7:25 PM EDT) Anatomical Region Laterality Modality Spine, C-spine Computed Tomogra phy 08/11/2025 7:25 PM EDT Narrative 08/11/2025 7:27 PM EDT [place] [address] [place] Scan Report Signed Patient: Marin Valdez MR#: [id number] : 1950 Acct:[id number] Age/Sex: 74 / M ADM Date: 08/10/25 Loc: [facility] 474-[address]: Lonnie Lemus MD Ordering Physician: Lonnie Lemus MD Date of Service: 08/11/25 Procedure(s): CT cervical spine wo IV con Accession Number(s): [id number] cc: Marleny Beebe MD; Lonnie Lemus MD Report Number: [id number]: Total DLP = 581.00 mGy-cm Reason for [...] in OV> 08/11/251925 DD/ 24 TD/TT: 08/11/251924 Senior Industrial Engineer: Procedure Note Donotuseinterpreter, Image - 08/11/[address] [place] [address] [address] Scan Report Signed Patient: Royce Valdez#: [id number] : 2Acct:[id number] Age/Sex: 74 / MADM Date: 08/10/25 Loc: [facility] 474-[address]: Lonnie Lemus MD Ordering Physician: Lonnie Lemus MD Date of Service: 08/11/25 Procedure(s): CT cervical spine wo IV con Accession Number(s): [id number] cc: Marleny Beebe MD; Lonnie Lemus MD Report Number: [id number]: Total DLP = 581.00 mGy-cm Reason for [...] in OV> 08/11/251925 DD/ 24 TD/TT: 08/11/251924 Senior Industrial Engineer: [facility] External Provider IMG CT PROCEDURES Final Result * High Sensitivity Troponin I (08/10/2025 2:23 PM EDT) Pathologist [facility] TROPONIN I HIGH SENSITIVITY 6.6 <3.5 - 35.0 ng/L [facility] Comment:The [place] high sens itivity Troponin-I results should beused in conjunction with other diagnostic information suchas ECG, clinical observations and information, and patientsymptoms to aid in the diagnosis of [place]. 08/10/2025 2:23 PM EDT 08/10/2025 2:26 PM EDT Generic External Data Provider LAB BLOOD ORDERAB LES Final Result [facility] [address] [place] [phone] * Drug Monitoring, Panel 1, Screen, Urine (08/10/2025 1:49 PM EDT) Pathologist [facility] Opiate Screen Urine Not Detected Not Detect [facility] Comment:Opiate cut-off is 30 0 ng/mL.Positive results are unconfirmed and should not be used fornon-medical purposes. Barbiturates, Urine Not Detected Not Detect [facility] Comment:Barbiturate cut-off is 200 ng/mL.Positive results are unconfirmed and should not be used fornon-medical purposes. Phencyclidine Screen Urine Not Detected Not Detect [facility] Comment:Phencyclidine cut-of f is 25 ng/mL.Positive results are unconfirmed and should not be used fornon-medical purposes. Amphetamine Screen Urine Not Detected Not Detect [facility] Comment:Amphetamine cut-off is 1000 ng/mL.Positive results are unconfirmed and should not be used fornon-medical purposes. Benzodiazepines Screen Urine Not Detected Not Detect [facility] Comment:Benzodiazepine cut-o ff is 200 ng/mL.Positive results are unconfirmed and should not be used fornon-medical purposes. Cocaine Screen Urine Not Detected Not Detect [facility] Comment:Cocaine cut-off is 3 00 ng/mL.Positive results are unconfirmed and should not be used fornon-medical purposes. Cannabinoid Screen Urine Not Detected Not Detect [facility] Comment:Cannabinoid cut-off is 50 ng/mL.Positive results are unconfirmed and should not be used fornon-medical purposes. Methadone Screen, Urine Not Detected Not Detect ng/mL [facility] Comment:Methadone cut-off is 300 ng/mL.Positive results are unconfirmed and should not be used fornon-medical purposes. FENTANYL URINE Not Detected Not Detect [facility] Comment:Fentanyl cut-off is 1 ng/mL.Positive results are unconfirmed and should not be used fornon-medical purposes. Oxycodone Urine Screen Not Detected Not Detect ng/mL [facility] Comment:Oxycodone cut-off is 100 ng/mL.Positive results are unconfirmed and should not be used fornon-medical purposes. Buprenorphine Screen Not Detected Not Detect ng/mL [facility] Comment:Buprenorphine cut-of f is 5 ng/mL.Positive results are unconfirmed and should not be used fornon-medical purposes. 08/10/2025 1:49 PM EDT 08/10/2025 1:52 PM EDT us Generic External Data Provider LAB URINE ORDERAB LES Final Result [facility] [address] [place] [address] [phone] * (ABNORMAL) Urinalysis, Complete, with Reflex to Culture (08/10/2025 1:49 PM EDT) Color Urine Yellow [facility] Appearance Urine Clear [facility] PH 5.0 5.0 - 9.0 [facility] Glucose Urine UA Negative Negative mg/dL [facility] Urine Blood Negative Negative [facility] Specific [place] - Urine 1.015 1.005 - 1.025 [facility] Urine Protein Trace Neg-Trace mg/dL [facility] Urine Ketones Trace Negative mg/dL [facility] Nitrite Urine Negative Negative [facility] Leukocyte Esterase Urine Small (1+)(A) Negative [facility] RBC Urine 0-2 0 - 2 /HPF [facility] Urine WBC 6-10(A) 0 - 5 /HPF [facility] Urine Squamous Epithelial Cell 0-2 0 - 2 /HPF [facility] Urine Bacteria None Seen None Seen [facility] Hyaline Casts, Urine 11-20 0 - 2 /LPF [facility] 08/10/2025 1:49 PM EDT 08/10/2025 1:52 PM EDT Narrative [facility] - 08/10/2025 2:09 PM EDT [id number], Catheterized us Generic External Data Provider LAB URINE ORDERAB LES Final Result [facility] [address] [place] [phone] * CT Abdomen Pelvis w/o Contrast (08/10/2025 1:05 PM EDT) Anatomical Region Laterality Modality Body, Pelvis, Abdomen Computed T omography 08/10/2025 1:05 PM EDT Narrative 08/10/2025 1:52 PM EDT [address] [address] [address] Scan Report Signed Patient: Marin Valdez MR#: [id number] : 1950 Acct:[id number] Age/Sex: 74 / M ADM Date: 08/10/25 Loc: HO.ED Attending Dr: Ordering Physician: Jennifer Bar[place] Date of Service: 08/10/25 Procedure(s): CT abdomen pelvis wo IV con Accession Number(s): [id number] cc: Marleny Beebe MD; [place] Bar[place] Report Number: [id number]: Total DLP = 1129.00 mGy-cm Reason for [...] 08/10/25 1349 DD/ 1305 TD/TT: 08/10/25 1315 Senior Industrial Engineer: Procedure Note Donotuseinterpreter, Image - 08/10/[address] [place] [address] [address] Scan Report Signed Patient: Royce Valdez#: [id number] : 1950cct:[id number] Age/Sex: 74 / MADM Date: 08/10/25 Loc: HO.ED Attending Dr: Ordering Physician: Jennifer Barahona Date of Service: 08/10/25 Procedure(s): CT abdomen pelvis wo IV con Accession Number(s): [id number] cc: Marleny Beebe MD; [place] Barah[place] Report Number: [id number]: Total DLP = 1129.00 mGy-cm Reason for [...] Lauro Hopkins MD 08/10/2025 01:49 PM EDT Dictated By: Lauro Hopkins MD Signed By: <Electronically signed by Lauro Hopkins MD in OV> 08/10/25 1349 DD/ 1305 TD/TT: 08/10/25 1315 Senior Industrial Engineer: [facility] External Provider IMG CT PROCEDURES Final Result * CT Head w/o Contrast (08/10/2025 1:05 PM EDT) Anatomical Region Laterality Modality Head, Neck Computed Tomogra phy 08/10/2025 1:05 PM EDT Narrative 08/10/2025 1:45 PM EDT [address] [address] [address] Scan Report Signed Patient: Marin Valdez MR#: [id number] : 1950 Acct:[id number] Age/Sex: 74 / M ADM Date: 08/10/25 Loc: HO.ED Attending Dr: Ordering Physician: Jennifer Barahona Date of Service: 08/10/25 Procedure(s): CT head/brain wo IV con Accession Number(s): [id number] cc: Marleny Beebe MD; [place] Bar[place] Report Number: [id number]: Total DLP = 887.00 mGy-cm Reason for [...] Braydon Cassidy MD 08/10/2025 01:42 PM EDT RP Dictated By: Braydon Cassidy MD Signed By: <Electronically signed by Braydon Cassidy MD in OV> 08/10/25 1342 DD/ 1305 TD/TT: 08/10/25 1315 Senior Industrial Engineer: Procedure Note Donotuseinterpreter, Image - 08/10/[address] [place] [address] [address] Scan Report Signed Patient: Royce Valdez#: [id number] : 1950cct:[id number] Age/Sex: 74 / MADM Date: 08/10/25 Loc: HO.ED Attending Dr: Ordering Physician: Jennifer Barahona Date of Service: 08/10/25 Procedure(s): CT head/brain wo IV con Accession Number(s): [id number] cc: Marleny Beebe MD; [place] Bar[place] Report Number: [id number]: Total DLP = 887.00 mGy-cm Reason for [...] 08/10/25 1342 DD/ 1305 TD/TT: 08/10/25 1315 Senior Industrial Engineer: [facility] External Provider IMG CT PROCEDURES Final Result * XR Chest 1 View (08/10/2025 12:38 PM EDT) Anatomical Region Laterality Modality Chest Radiographic Guillermina ging 08/10/2025 12:3 8 PM EDT Narrative 08/10/2025 12:59 PM EDT [address] [address] XRay Report Signed Patient: Marin Valdez MR#: [id number] : 1950 Acct:[id number] Age/Sex: 74 / M ADM Date: 08/10/25 Loc: HO.ED Attending Dr: Ordering Physician: Jennifer Barah[place] Date of Service: 08/10/25 Procedure(s): XR chest 1V Accession Number(s): [id number] cc: Marleny Beebe MD; [place] Bar[place] Reason [...] 08/10/25 1255 DD/ 1238 TD/TT: 08/10/25 1252 Senior Industrial Engineer: Procedure Note Donotuseinterpreter, Image - 08/10/2025 [place] [address] XRay Report Signed Patient: Royce Valdez#: [id number] : 2Acct:[id number] Age/Sex: 74 / MADM Date: 08/10/25 Loc: HO.ED Attending Dr: Ordering Physician: [place] Barahona Date of Service: 08/10/25 Procedure(s): XR chest 1V Accession Number(s): [id number] cc: Marleny Beebe MD; [place] Barahona Reason [...] 08/10/25 1255 DD/ 1238 TD/TT: 08/10/25 1252 Senior Industrial Engineer: [facility] External Provider IMG XR PROCEDURES Final Result * Lactic Acid (08/10/2025 12:22 PM EDT) Lactic Acid 1.7 0.5 - 2.0 mmol/L [facility] 08/10/2025 12:2 2 PM EDT 08/10/2025 12:29 PM EDT Generic External Data Provider LAB BLOOD ORDERAB LES Final Result [facility] [address] [place] [address] [phone] * NT-proBNP (08/10/2025 11:06 AM EDT) NT-proBNP 180.3 <300 pg/mL [facility] Comment:Reference Range:Age Group (years) NT-proBNP (pg/ml) InterpretationAll <300 Negative: HF unlikelyFor patients presenting to the ED with clinical suspicion ofnew onset or worsening HF, see below:18 to <50 >299.9 to <450.0 Grayzone: [id number] to 75 >299.9 to <900.0 other causes of>75 >299.9 to <1800.0 NT-proBNP to <50 >449.9 Positive: HF [id number] >899.9>75 >1799.9Note: Elevated NT-proBNP levels should be interpreted inthe context of other clinical information. 08/10/2025 11:0 6 AM EDT 08/10/2025 11:13 AM EDT Generic External Data Provider LAB BLOOD ORDERAB LES Final Result Performing Organization Address [facility] de Phone Number [facility] [address] [place] [phone] * Creatine Kinase, Total (08/10/2025 11:06 AM EDT) Creatine Kinase Total 109 38 - 174 U/L [facility] 08/10/2025 11:0 6 AM EDT 08/10/2025 11:12 AM EDT Generic External Data Provider LAB BLOOD ORDERAB LES Final Result Performing Organization Address [facility] Number [facility] [address] [place] [address] [phone] * High Sensitivity Troponin I (08/10/2025 11:06 AM EDT) [facility] TROPONIN I HIGH SENSITIVITY 10.1 <3.5 - 35.0 ng/L [facility] Comment:The [place] high sens itivity Troponin-I results should beused in conjunction with other diagnostic information suchas ECG, clinical observations and information, and patientsymptoms to aid in the diagnosis of [place]. 08/10/2025 11:0 6 AM EDT 08/10/2025 11:13 AM EDT Generic External Data Provider LAB BLOOD ORDERAB LES Final Result Performing Organization Address [facility] Co de Phone Number [facility] [address] [place] [address] [phone] * (ABNORMAL) Magnesium (08/10/2025 11:06 AM EDT) Pathologist [facility] Magnesium 1.5(L) 1.6 - 2.6 mg/dL [facility] 08/10/2025 11:0 6 AM EDT 08/10/2025 11:12 AM EDT us Generic External Data Provider LAB BLOOD ORDERAB LES Final Result Performing Organization Address City/[facility]/ZIP Co de Phone Number [facility] [address] [place] [phone] * (ABNORMAL) Basic Metabolic Panel (08/10/2025 11:06 AM EDT) Sodium 133(L) 135 - 145 mmol/L [facility] Potassium 4.1 3.3 - 5.1 mmol/L [facility] Chloride 100 96 - 108 mmol/L [facility] Carbon Dioxide 22 22 - 29 mmol/L [facility] Anion Gap 15 12 - 20 [facility] Urea Nitrogen (BUN) 70(H) 9 - 16 mg/dL [facility] Creatinine, Serum 3.91(H) 0.5 - 1.4 mg/dL [facility] Creatinine Clr Calc Pharmacy 22.3 [facility] Comment:eGFR (calculated fro m the MDRD study equation) and eCrCl(calculated from the Cockcroft-Gault equation) are based ondifferent parameters and may not yield comparable results.If eCrCl result is absurd, please check patient'sheight/weight. Estimated Glomerular Filt Rate 15 [facility] Comment:Chronic Kidney Disea se: Estimated GFR < 60 mL/min/1.25m3Nkaftx Kidney Disease: Estimated GFR < 15 mL/min/1.73m2 Glucose 148(H) 60 - 115 mg/dL [facility] Calcium 7.9(L) 8.4 - 10.2 mg/dL [facility] 08/10/2025 11:0 6 AM EDT 08/10/2025 11:12 AM EDT us Generic External Data Provider LAB BLOOD ORDERAB LES Final Result Performing Organization Address City/[facility]/ZIP Co de Phone Number [facility] [address] [place] [address] [phone] * Hepatic Function Panel (08/10/2025 11:06 AM EDT) [facility] Bilirubin, Total 0.4 0.0 - 1.0 mg/dL [facility] Bilirubin, Direct 0.1 0.0 - 0.5 mg/dL [facility] Aspartate Amino Transferase 21 5 - 37 U/L [facility] Alanine Aminotransferase 19 0 - 40 U/L [facility] Total Protein 6.7 6.5 - 8.0 g/dL [facility] Albumin Level 3.8 3.5 - 5.0 g/dL [facility] Alkaline Phosphatase 67 39 - 117 U/L [facility] 08/10/2025 11:0 6 AM EDT 08/10/2025 11:12 AM EDT us Generic External Data Provider LAB BLOOD ORDERAB LES Final Result Performing Organization Address City/State/[facility] Co de Phone Number [facility] [address] [place] [phone] * (ABNORMAL) CBC auto differential (08/10/2025 11:06 AM EDT) [facility] White Blood Count 12.7(H) 4.8 - 10.8 X10*3/uL [facility] Red Blood Count 3.83(L) 4.60 - 5.80 X10*6/uL [facility] Hemoglobin 11.2(L) 14.0 - 18.0 g/dl [facility] Hematocrit 33.2(L) 42.0 - 52.0 % [facility] Mean Corpuscular Volume 86.7 80.0 - 98.0 fL [facility] Mean Corpuscular Hemoglobin 29.2 27.0 - 33.0 pg [facility] Mean Corpuscular HGB Conc 33.7 31.0 - 36.0 g/dl [facility] Red Cell Distribution Width 13.9 11.0 - 16.0 % [facility] Platelet Count 233 160 - 400 X10*3/uL [facility] Mean Platelet Volume 10.5 9.4 - 12.4 fL [facility] Neutrophils Percent Auto 61.7 45 - 73 % [facility] Imm Gran Pct Auto 0.9(H) 0.0 - 0.4 % [facility] Lymphocytes Percent Auto 26.9 20 - 40 % [facility] Monocytes Percent Auto 9.3 2 - 11 % [facility] Eosinophils Percent Auto 1.0 0 - 4 % [facility] Basophils Percent Auto 0.2 0 - 2 % [facility] NRBC Pct Auto 0.0 0.0 - 0.2 /100WBC [facility] Neutrophils Absolute Auto 7.8 2.0 - 8.3 x10*3/uL [facility] Imm Gran Abs Auto 0.11(H) 0.00 - 0.03 X10*3/uL [facility] Lymphocytes Absolute Auto 3.4 1.2 - 4.9 X10*3/uL [facility] Monocytes Absolute Auto 1.2 0.1 - 1.2 X10*3/uL [facility] Eosinophils Absolute Auto 0.1 0.0 - 0.4 X10*3/uL [facility] Basophils Absolute Auto 0.0 0.0 - 0.2 X10*3/uL [facility] NRBC Abs Auto 0.000 0.0 - 0.012 X10*3/uL [facility] 08/10/2025 11:0 6 AM EDT 08/10/2025 11:12 AM EDT us Generic External Data Provider LAB BLOOD ORDERAB LES Final Result [facility] [address] [place] [phone] * HOLD LT BLUE - POSSIBLE COAG (08/10/2025 11:05 AM EDT) Hold Lt Blue - Possible Coag SEE NOTE [facility] Comment:Specimen will be hel d untested for 4 hours. Call Hematologyif testing is desired. 08/10/2025 11:0 5 AM EDT 08/10/2025 11:16 AM EDT us Generic External Data Provider LAB BLOOD ORDERAB LES Final Result [facility] [address] [place] [phone] documented in this encounter Visit Diagnoses Diagnosis Benign essential hypertension- Primary Essential hypertension, benign documented in this encounter Care Teams Window Air Conditioner Installer Relationship Specialty Start Date End Date Marleny Beebe MD [address] [place] [address] PCP - General Family Medicine 12/25/16 Kavin Tan, NahumD [address] [place] [phone] Pharmacist Pharmacy 07/13/25 documented as of this encounter
--- OUTSIDE RECORDS SUMMARY | 2025-08-17 17:41 | XMS_ITS | Encounter Summary ---
Author Organization [employer] Address [address] [place] [address] 7t [place] [address] Care Team Providers Care Case Specialist Name Role Phone Marleny Beebe MD Primary Care Provider + Kavin Tan PharmD Unavailable [phone] Reason for Visit * Reason Comments Med Refill Encounter Details Date Type Department Care Team (Late st Contact Info) Description 09/18/2022 Refill [facility] [address] [place] [address] [phone] Marleny Beebe MD [address] [place] [address] [phone] Social History Tobacco Use Types Packs/Day Years [...] Description 08/22/2025 2:30 PM EST Office Visit [facility] [address] [place] [address] [phone] Marleny Beebe MD [address] [place] [address] [phone] 08/31/2025 10:30 AM EST Office Visit [facility] [address] [place] [address] [phone] Marleny Beebe MD [address] [place] [address] [phone] 09/07/2025 9:00 AM EST Medication Management [facility] [address] [place] [address] [phone] Kavin Tan, PharmD [address] [place] [phone] documented as of this encounter Visit Diagnoses Not on filedocumented in this encounter Care Teams Case Specialist Relationship Specialty Start Date End Date Marleny Beebe MD [address] [place] [address] [phone] PCP - General Family Medicine 12/25/16 Kavin Tan, PharmD [address] [place] [address] [phone] Pharmacist Pharmacy 07/13/25 documented as of this encounter
--- OUTSIDE RECORDS SUMMARY | 2025-08-17 17:41 | XMS_ITS | Encounter Summary ---
Author Organization [employer] Address [address] [facility] 7t [place] [address] Care Team Providers Care Final Armature Tester Name Role Phone Marleny Beebe MD Primary Care Provider + Kavin Tan PharmD Unavailable [phone] Encounter Details Date Type Department Care Team (Late st Contact Info) Description 03/06/2023 Orders Only [facility] [address] [place], [place] [phone] Dejah Stewart LPN Social History Tobacco Use [...] Description 08/22/2025 2:30 PM EST Office Visit [address] [address] Marleny Beebe MD [address] [place] [phone] 08/31/2025 10:30 AM EST Office Visit [address] [address] Marleny Beebe MD [address] [place] [phone] 09/07/2025 9:00 AM EST Medication Management [address] [place] [address] Kavin Tan, PharmD [address] [place] [address] documented as of this encounter Visit Diagnoses Not on filedocumented in this encounter Care Teams Final Armature Tester Relationship Specialty Start Date End Date Marleny Beebe MD [address] [place] [phone] PCP - General Family Medicine 12/25/16 Kavin Tan, PharmD [address] [place] [address] Pharmacist Pharmacy 07/13/25 documented as of this encounter
--- OUTSIDE RECORDS SUMMARY | 2025-08-17 17:41 | XMS_ITS | Encounter Summary ---
Author Organization [employer] Address [address] [facility] 7t [place] [address] Care Team Providers Care Assurance Manager Name Role Phone Marleny Beebe MD Primary Care Provider + Kavin Tan PharmD Unavailable [phone] Reason for Visit * Reason Comments Med Refill Encounter Details Date Type Department Care Team (Late st Contact Info) Description 05/30/2023 Refill [facility] [address] [place], [place] [phone] Laurel Jiang MD [address] [place] [address] [phone] Anxiety and depression Social History Tobacco Use [...] Description 08/22/2025 2:30 PM EST Office Visit [facility] [address] [place] [address] Marleny Beebe MD [address] [place] [address] 08/31/2025 10:30 AM EST Office Visit [address] [address] Marleny Beebe MD [address] [place] [address] 09/07/2025 9:00 AM EST Medication Management [address] [address] Kavin Tan, PharmD [address] [place] [phone] documented as of this encounter Visit Diagnoses Diagnosis Anxiety and depression documented in this encounter Care Teams Assurance Manager Relationship Specialty Start Date End Date Marleny Beebe MD [address] [place] [address] [phone] PCP - General Family Medicine 12/25/16 Kavin Tan, PharmD [address] [place] [address] [phone] Pharmacist Pharmacy 07/13/25 documented as of this encounter
--- OUTSIDE RECORDS SUMMARY | 2025-08-17 17:41 | XMS_ITS | Encounter Summary ---
Author Organization [employer] Address [address] [facility] 7t [place] [address] Care Team Providers Care Residence Life Coordinator Name Role Phone Marleny Beebe MD Primary Care Provider + Kavin Tan PharmD Unavailable [phone] Encounter Details Date Type Department Care Team (Late st Contact Info) Description 10/25/2022 Orders Only [address] [address] Jyothi Mccarthy LPN Social History Tobacco Use [...] Description 08/22/2025 2:30 PM EST Office Visit [address] [address] Marleny Beebe MD [address] [place] [phone] 08/31/2025 10:30 AM EST Office Visit [address] [address] Marleny Beebe MD [address] [place] [address] 09/07/2025 9:00 AM EST Medication Management [address] [place] [address] Kavin Tan, PharmD [address] [place] [address] documented as of this encounter Visit Diagnoses Not on filedocumented in this encounter Care Teams Residence Life Coordinator Relationship Specialty Start Date End Date Marleny Beebe MD [address] [place] [phone] PCP - General Family Medicine 12/25/16 Kavin Tan, PharmD [address] [place] [phone] Pharmacist Pharmacy 07/13/25 documented as of this encounter
--- OUTSIDE RECORDS SUMMARY | 2025-08-17 17:41 | XMS_ITS | Encounter Summary ---
Author Organization [employer] Address [address] [place] [address] 7t [place] [address] Care Team Providers Care Restuarant Crew Worker Name Role Phone Marleny Beebe MD Primary Care Provider + Kavin Tan PharmD Unavailable [phone] Reason for Visit * Reason Comments Med Refill Encounter Details Date Type Department Care Team (Late st Contact Info) Description 03/06/2023 Refill [facility] [address] [place] [address] [phone] Marleny Beebe MD [address] [place] [address] [phone] Primary hypertension; Controlled type 2 diabetes mellitus with hyperglycemia, with long-term current use of insulin ([facility]) Social History Tobacco Use Types Packs/Day Years [...] Description 08/22/2025 2:30 PM EST Office Visit [facility] [address] [place] [address] [phone] Marleny Beebe MD [address] [place] [address] [phone] 08/31/2025 10:30 AM EST Office Visit [facility] [address] [place] [address] [phone] Marleny Beebe MD [address] [place] [address] [phone] 09/07/2025 9:00 AM EST Medication Management [facility] [address] [place] [address] [phone] Kavin Tan, Ana [address] [place] [address] [phone] documented as of this encounter Visit Diagnoses Diagnosis Primary hypertension Unspecified essential hypertension Controlled type 2 diabetes mellitus with hyperglycemia, with long-term current use of insulin (HCC) documented in this encounter Care Teams Restuarant Crew Worker Relationship Specialty Start Date End Date Marleny Beebe MD [address] [place] [address] [phone] PCP - General Family Medicine 12/25/16 Kavin Tan, Ana [address] [place] [address] [phone] Pharmacist Pharmacy 07/13/25 documented as of this encounter
--- OUTSIDE RECORDS SUMMARY | 2025-08-17 17:41 | XMS_ITS | Encounter Summary ---
Author Organization [employer] Address [address] [facility] 7t [place] [address] Care Team Providers Care Financial Representative Name Role Phone Marleny Beebe MD Primary Care Provider + Kavin Tan PharmD Unavailable [phone] Reason for Visit * Reason Onset Date Comments Durable Medical Equipment 08/16/2025 Encounter Details Date Type Department Care Team (Late st Contact Info) Description 08/16/2025 Telephone [facility] [address] [place], [place] [phone] Marleny Beebe MD [address] [place], [place] [phone] Durable Medical Equipment Social History Tobacco Use Types Packs/Day Years [...] Encounter - Laverne Roque RN - 08/17/2025 4:01 PM EST Noted. RN has added DME requests to appointment details for [facility] on 08/22/25 as OV notes will be needed to support medical necessity. * Telephone Encounter - Bertha Allan - 08/16/2025 11:30 AM EST Pt walked in requesting pcp order some equipment for him that cca is stating he needs. Pt needs Rollator Round bolt down rise for toilet with removable arms Hand held shower head Trasnfer tub bench 18 inch chrome grab bar Male urinal Bedside assist rail I explained to pt he may need to wait until his scheduled physical on the as some of the itemsmay require documented notes that explain the need for them. documented in this encounter Plan of Treatment Upcoming Encounters Date Type Department Care Team (Late st Contact Info) Description 08/22/2025 2:30 PM EST Office Visit [facility] [address] [place] [address] Marleny Beebe MD [address] [place] [address] 08/31/2025 10:30 AM EST Office Visit [address] [address] Marleny Beebe MD [address] [place] [address] 09/07/2025 9:00 AM EST Medication Management [address] [address] Kavin Tan, PharmD [address] [place] [phone] documented as of this encounter Visit Diagnoses Not on filedocumented in this encounter Care Teams Financial Representative Relationship Specialty Start Date End Date Marleny Beebe MD [address] [place] [address] [phone] PCP - General Family Medicine 12/25/16 Kavin Tan, PharmD [address] [place] [address] [phone] Pharmacist Pharmacy 07/13/25 documented as of this encounter
--- OUTSIDE RECORDS SUMMARY | 2025-08-17 17:41 | XMS_ITS | Encounter Summary ---
Author Organization [employer] Address [address] [place] [address] 7t [place] [address] Care Team Providers Care Senior Net Software Developer Name Role Phone Marleny Beebe MD Primary Care Provider + Kavin Tan PharmD Unavailable [phone] Reason for Visit * Reason Comments Med Refill Encounter Details Date Type Department Care Team (Late st Contact Info) Description 03/06/2023 Refill [facility] [address] [place] [address] [phone] Marleny Beebe MD [address] [place] [address] [phone] Controlled type 2 diabetes mellitus with hyperglycemia, with long-term current use of insulin ([facility]); Primary hypertension Social History Tobacco [...] Description 08/22/2025 2:30 PM EST Office Visit [facility] [address] [place] [address] [phone] Marleny Beebe MD [address] [place] [address] [phone] 08/31/2025 10:30 AM EST Office Visit [facility] [address] [place] [address] [phone] Marleny Beebe MD [address] [place] [address] [phone] 09/07/2025 9:00 AM EST Medication Management [facility] [address] [place] [address] [phone] Kavin Tan, Ana [address] [place] [address] [phone] documented as of this encounter Visit Diagnoses Diagnosis Controlled type 2 diabetes mellitus with hyperglycemia, with long-term current use of insulin (HCC) Primary hypertension Unspecified essential hypertension documented in this encounter Care Teams Senior Net Software Developer Relationship Specialty Start Date End Date Marleny Beebe MD [address] [place] [address] [phone] PCP - General Family Medicine 12/25/16 Kavin Tan, Ana [address] [place] [address] [phone] Pharmacist Pharmacy 07/13/25 documented as of this encounter
--- OUTSIDE RECORDS SUMMARY | 2025-08-17 17:41 | XMS_ITS | Encounter Summary ---
Author Organization [employer] Address [address] [facility] 7t [place] [address] Care Team Providers Care Vegetable Handler Name Role Phone Marleny Beebe MD Primary Care Provider + Kavin Tan PharmD Unavailable [phone] Encounter Details Date Type Department Care Team (Late st Contact Info) Description 08/10/2025 Results Follow-Up [facility] [address] [place] [address] Marleny Beebe MD [address] [place] [address] CBC auto differential, HOLD LT BLUE - POSSIBLE COAG, Hepatic Function Panel, Additional followed-up results: 9 Social History Tobacco Use Types Packs/Day Years [...] Description 08/22/2025 2:30 PM EST Office Visit [address] [address] Marleny Beeeb MD [address] [place] [phone] 08/31/2025 10:30 AM EST Office Visit [address] [address] Marleny Beebe MD [address] [place] [address] 09/07/2025 9:00 AM EST Medication Management [address] [address] Kavin Tan, PharmD [address] [place] [phone] documented as of this encounter Visit Diagnoses Not on filedocumented in this encounter Care Teams Vegetable Handler Relationship Specialty Start Date End Date Marleny Beebe MD [address] [place] [phone] PCP - General Family Medicine 12/25/16 Kavin Tan, PharmD [address] [place] [address] Pharmacist Pharmacy 07/13/25 documented as of this encounter
== END 2025-08-17 15:09 | disposition home or self-care (01) ==
LOC: HO.PMC 14:33
PROVIDERS: Visit Provider Anesthesiology
DX: M47.816 Spondylosis without myelopathy or radiculopathy, lumbar region (principal); M19.012 Primary osteoarthritis, left shoulder; M17.12 Unilateral primary osteoarthritis, left knee; G89.4 Chronic pain syndrome; M10.9 Gout, unspecified
CPT/HCPCS: 99203

== ENCOUNTER → 2025-08-17 14:31 | Outpatient (BNVA) | payer OTHER, SELFPAY | PROVIDERS: Visit Provider Anesthesiology | DX: G89.4 Chronic pain syndrome (principal); M19.012 Primary osteoarthritis, left shoulder; M17.12 Unilateral primary osteoarthritis, left knee; M10.9 Gout, unspecified; M47.816 Spondylosis without myelopathy or radiculopathy, lumbar region | CPT/HCPCS: 99202 ==

== ENCOUNTER 2025-08-22 15:38 | Outpatient (REF) | payer OTHER, SELFPAY ==
--- OUTSIDE RECORDS SUMMARY | 2025-08-22 14:30 | XMS_ITS | Encounter Summary ---
Author Organization [employer] Address [address] [facility] [address] 7t [place] [address] Care Team Providers Care Tub Chucker Name Role Phone Marleny Beebe MD Primary Care Provider + Kavin Tan PharmD Unavailable [phone] Encounter Details Date Type Department Care Team (Latest Contact Info) Description 08/22/2025 2:30 PM EST Office Visit [facility] [address] [place], [place] [phone] Marleny Beebe MD [address] [place], [place] [phone] Acute pyelonephritis (Primary Dx); OLIVIA (acute kidney injury); Type 2 diabetes mellitus with hyperglycemia, with long-term current use of insulin (HCC) Social History Tobacco Use Types Packs/Day Years [...] AM EDT documented as of this encounter Last Filed Vital Signs Vital Sign Reading Time Taken Comments Blood Pressure 120/70 08/22/2025 2:52 PM EST Pulse 63 08/22/2025 2:52 PM EST Temperature 36 C (96.8 F) 08/22/2025 2:52 PM EST Respiratory Rate 12 08/22/2025 2:52 PM EST Oxygen Saturation 99% 08/22/2025 2:52 PM EST Inhaled Oxygen Concentration - - Weight 98.7 kg (217 lb 8 oz) 08/22/2025 2:52 PM EST Height 172.7 cm (5' 8 ) 08/22/2025 2:52 PM EST Body Mass Index 33.07 08/22/2025 2:52 PM EST documented in this encounter Plan of Treatment Upcoming Encounters Date Type Department Care Team (Late st Contact Info) Description 08/31/2025 10:30 AM EST Office Visit [facility] [address] [place] [address] Marleny Beebe MD [address] [place] [address] 09/07/2025 9:00 AM EST Medication Management [facility] [address] [place] [phone] Kavin Tan, PharmD [address] [place] [phone] Scheduled Orders Name Type Priority Associated Diagnoses Orde r Schedule Basic Metabolic Panel Lab Routine Acute pyelonephritis OLIVIA (acute kidney injury) Expected: 08/22/2025 (Approximate), Expires: 08/22/2026 CBC auto differential Lab Routine Acute pyelonephritis OLIVIA (acute kidney injury) Expected: 08/22/2025 (Approximate), Expires: 08/22/2026 documented as of this encounter Visit Diagnoses Diagnosis Acute pyelonephritis- Primary Acute pyelonephritis without lesion of renal medullary necrosis OLIVIA (acute kidney injury) Type 2 diabetes mellitus with hyperglycemia, with long-term current use of insulin (HCC) documented in this encounter Care Teams Tub Chucker Relationship Specialty Start Date End Date Marleny Beebe MD [address] [place] [phone] PCP - General Family Medicine 12/25/16 Kavin Tan, NahumD [address] [place] [phone] Pharmacist Pharmacy 07/13/25 documented as of this encounter
--- OUTSIDE RECORDS SUMMARY | 2025-08-22 17:42 | XMS_ITS | Clinical Summary ---
Author Organization [employer] Address [address] [facility] 7t [place] [address] Care Team Providers Care Truss Designer Name Role Phone Marleny Beebe MD Primary Care Provider + Kavin Tan PharmD Unavailable [phone] Allergies No known active allergies Medications * This document contains information received from the source organization and may not represent a complete record from that organization. albuterol 108 (90 Base) MCG/ACT inhalerIndication s:COPD with acute exacerbation (CMS/HCC) ([facility]) Inhale 2 puffs every 6 (six) hours [...] hyperglycemia, with long-term current use of insulin ([facility]) TAKE 1 TABLET BY MOUTH TWICE DAILY IN THE MORNING AND IN THE EVENING WITH MEALS 60 tablet 5 05/27/20 25 Active aspirin (Aspirin [...] Once per day. 30 tablet 06/03/20 25 2025 Active Additional Information Patient not taking.Reason: Other (Instructed to hold at [facility] 08/13/2025), Reported on 08/22/2025 Blood Glucose Monitoring Suppl (ONE TOUCH ULTRA 2) w/Device kitIndications:Ty pe 2 diabetes mellitus with hyperglycemia, with long-term current use of insulin (HCC) 1 each with breakfast and with evening meal. 1 kit 06/14/20 25 Active insulin pen needle (Pentips) 32G x 4 mm misc Use as instructed 100 each 06/14/20 25 Active Lancets (OneTouch Delica Plus [id number]) misc TEST BLOOD SUGAR THREE TIMES DAILY [...] AND IN THE EVENING 60 tablet 5 10/02/20 25 Active insulin degludec (Tresiba FlexTouch) 100 UNIT/ML injectionIndicati ons:Type 2 diabetes mellitus with hyperglycemia, with long-term current use of insulin (HCC) INJECT 14 UNITS SUBCUTANEOUSLY EVERY EVENING 15 mL 3 07/14/20 Active cefuroxime (Ceftin) 500 MG tablet Take 500 mg by mouth 2 times daily. 08/13/202024 Active magnesium oxide (Mag-Ox) 400 (240 Mg) MG tablet Take 1 tablet by mouth Once per day. 08/13/202024 Active amLODIPine (Norvasc) 10 MG tabletIndications :Primary hypertension Take 1 tablet (10 mg) by mouth at bedtime. 30 tablet 5 05/27/202024 Discontin ued(Disco ntinued by another clinician ) clotrimazole (Lotrimin) 1 % cream Apply topically 2 times daily for 28 days. 30 g 07/07/202024 Active Problems Problem Noted Date Diagnosed Date Acute pyelonephritis 08/22/2025 OLIVIA (acute kidney injury) 08/22/2025 Cognitive dysfunction 07/09/2025 Assessment & Plan (07/09/2025 9:09 AM EDT): It could be due to persistently high blood sugars over the past few months, uncontrolled diabetes and may be exacerbated depression after of his . It is very likely that he also has microvascular SKI PATROL changes Will try to optimize chronic medical [...] CBC today. -Has appointment with a new [employer] Professor on 12/31 at 10:30 am, information given [...] bone changes Order X-Ray Need margarette with geriatric case manager, referral had been sent previously Get X-ray and Fu with me Assessment & Plan (07/24/2023 11:27 AM EDT): Start Duricef x 1 wk and will fu with him then Counseled about soaking feet in warm water with Epson salt Avoid poking lesions Fu 1 wk Pillager of toe 07/24/2023 Assessment & Plan (09/18/2023 11:20 AM EST): Right second toe Pt need to reschedule appointment w/ geriatric case manager Assessment & Plan (07/24/2023 11:30 AM EDT): R toe Refer to geriatric case manager Will need custom made shoes Vitamin D deficiency 06/02/2023 Assessment & Plan (07/24/2023 11:06 AM EDT): Will start Vit-D supplementations x 6 month Encouraged outdoor exercise for sun exposure for 15 min /day Assessment & Plan (06/06/2023 8:54 AM EDT): Start Vit D supplementation x 6m Counseled re outdoor exercise COPD with acute exacerbation ([facility]) 3 Assessment & Plan (06/06/2023 8:53 AM [...] airdroplets contact Stage 3 chronic kidney disease ([facility]) 05/22/2023 06/02/2023 Foot pain 07/08/2018 07/09/2025 Closed fracture of foot 11/03/201706/14 CKD (chronic kidney disease) stage 3, GFR 30-59 ml/min ([facility]) 05/03/2013 06/02/2023 Encounters * This document contains information received from the source organization and may not represent a complete record from that organization. Date Type Department Care Team Description 08/22/2025 2:30 PM EST Office Visit [facility] [address] [place] [phone] Marleny Beebe MD Acute pyelonephritis (Primary Dx); OLIVIA (acute kidney injury); Type 2 diabetes mellitus with hyperglycemia, with long-term current use of insulin ([facility]) 08/22/2025 Travel 08/19/2025 Refill [facility] [address] [place] [phone] Marleny Beebe MD Diabetic polyneuropathy associated with type 2 diabetes mellitus ([facility]) 08/18/[address] [address] Marleny Beebe MD FYI 08/17/[address] [address] Marleny Beebe MD HDF appt 08/16/[address] [place] [address] Marleny Beebe MD Durable Medical Equipment 08/11/2025 Telephone [facility] [address] [place] [address] Marleny Beebe MD Prior Authorization (Lidocaine patches) 08/10/2025 Results Follow-Up [facility] [address] [place] [address] Marleny Beebe MD CBC auto differential, HOLD LT BLUE - POSSIBLE COAG, Hepatic Function Panel, Additional followed-up results: 9 08/10/2025 Travel 07/27/2025 Telephone [facility] [address] [place] [address] Marleny Beebe MD appt 07/20/2025 Telephone [facility] [address] [place] [phone] Marleny Beebe MD FYI 07/15/2025 Telephone [facility] [address] [place] [phone] Marleny Beebe MD Durable Medical Equipment (DME Script Diabetic Shoes([facility])) 07/15/[address] [place] [address] Marleny Beebe MD appt for 07/1807/14/2025 Telephone [facility] [address] [place] [phone] Marleny Beebe MD Appointment 07/14/2025 Refill [facility] [address] [place] [phone] Marleny Beebe MD 07/14/2025 Telephone [facility] [address] [place] [address] Marleny Beebe MD DME 07/13/2025 Telephone [facility] [address] [place] [address], [place] [address] Marleny Beebe MD Insurance 07/13/2025 Travel 07/11/2025 Telephone [facility] [address] [place] [phone] Marleny Beebe MD VNA services 07/11/2025 Orders Only [facility] [address] [place] [phone] Marleny Beebe MD Benign essential hypertension (Primary Dx) 07/08/2025 Patient Outreach [address] [address] Marleny Beebe MD Care Coordination (CHW outreach for SDOH housing search-LVM ) 07/07/2025 3:45 PM EDT Office Visit [address] [address] Marleny Beebe MD Type 2 diabetes mellitus [...] unspecified whether traumatic 07/07/2025 Travel 07/06/[address] [address] Marleny Beebe MD chart Prep 07/05/[address] [address] Marleny Beebe MD Appt change 06/29/2025 Patient Outreach [address] [address] Marleny Beebe MD Pre-visit Planning ((Unable to reach for PVP screening, LVM) to be completed in office ) 06/14/2025 3:20 PM EDT Office Visit [facility] [address] [place] [phone] Jasen Lamar MD Type 2 diabetes mellitus with hyperglycemia, with long-term current use of insulin (CMS/HCC) (Primary Dx); Elevated glucose 06/14/2025 Travel 06/14/[address] [address] Marleny Beebe MD telephone call 06/09/2025 Telephone [facility] [address] [place] [phone] Marleny Beebe MD telephone call 06/03/2025 2:40 PM EDT Office Visit [facility] [address] [place] [phone] Jasen Lamar MD Acute cough (Primary Dx); Wheezing; Chronic obstructive pulmonary disease, unspecified COPD type ([facility]); Syncope and collapse 06/03/2025 Travel 06/02/2025 Patient Outreach [facility] [address] [place], [place] [phone] Marleny Beebe MD Transition Of Care (Tcm) (HDF unscheduled.) 06/02/2025 Telephone [facility] [address] [place] [phone] Marleny Beebe MD Hospital Follow-up 05/27/2025 3:20 PM EDT Office Visit [facility] [address] [place] [phone] Judy Meraz NP Complete tear of rotator cuff, unspecified laterality, unspecified whether traumatic (Primary Dx); Chronic pain of left knee; Type 2 diabetes mellitus with hyperglycemia, with long-term current use of insulin ([facility]); Benign essential hypertension; Moderate mixed hyperlipidemia not requiring statin therapy; PAD (peripheral artery disease) ([facility]); Recurrent major depressive episodes ([facility]); Diabetic polyneuropathy associated with type 2 diabetes mellitus ([facility]); Controlled type 2 diabetes mellitus with hyperglycemia, with long-term current use of insulin ([facility]); Primary hypertension; At high risk for cardiovascular [...] Mass Index 33.07 08/22/2025 2:52 PM EST Plan of Treatment Upcoming Encounters Date Type Department Care Team (Late st Contact Info) Description 08/31/2025 10:30 AM EST Office Visit [facility] [address] [place] [phone] Marleny Beebe MD [address] [place] [phone] 09/07/2025 9:00 AM EST Medication Management [facility] [address] [place] [phone] Kavin Tan, PharmD [address] [place] [address] Health Maintenance Due Date Last Done Comments [...] Additional history exists SDOH Screening 07/07/2026 07/07/2025 Dental X-Ray: Full Mouth 08/08/2026 023, 11/29/2020, 07/31/2009 Tobacco Screening 08/22/2026 08/22/2025 DTaP/Tdap/Td Vaccines (3 - Td or Tdap) [...] PM EDT Narrative 08/11/2025 7:27 PM EDT [place] [address] [address] Scan Report Signed Patient: Marin Valdez MR#: [id number] : 1950 Acct:[id number] Age/Sex: 74 / M ADM Date: 08/10/25 Loc: [facility] 474-[address]: Lonnie Lemus MD Ordering Physician: Lonnie Lemus MD Date of Service: 08/11/25 Procedure(s): CT cervical spine wo IV con Accession Number(s): [id number] cc: Marleny Beebe MD; Lonnie Lemus MD Report Number: [id number]: Total DLP = 581.00 mGy-cm Reason for [...] in OV> 08/11/251925 DD/ 24 TD/TT: 08/11/251924 [employer]: Procedure Note Donotuseinterpreter, Image - 08/11/[address] [place] [address] [address] Scan Report Signed Patient: Royce Valdez#: [id number] : 2Acct:[id number] Age/Sex: 74 / MADM Date: 08/10/25 Loc: [facility] 474-[address]: Lonnie Lemus MD Ordering Physician: Lonnie Lemus MD Date of Service: 08/11/25 Procedure(s): CT cervical spine wo IV con Accession Number(s): [id number] cc: Marleny Beebe MD; Lonnie Lemus MD Report Number: [id number]: Total DLP = 581.00 mGy-cm Reason for [...] in OV> 08/11/251925 DD/ 24 TD/TT: 08/11/251924 [employer]: [facility] External Provider IMG CT PROCEDURES Final Result * High Sensitivity Troponin I (08/10/2025 2:23 PM EDT) Only the most recent of2 resultswithin the time period is included. TROPONIN I HIGH SENSITIVITY 6.6 <3.5 - 35.0 ng/L [facility] Comment:The [place] high sens itivity Troponin-I results should beused in conjunction with other diagnostic information suchas ECG, clinical observations and information, and patientsymptoms to aid in the diagnosis of NE. 08/10/2025 2:23 PM EDT 08/10/2025 2:26 PM EDT Generic External Data Provider LAB BLOOD ORDERAB LES Final Result [facility] [address] [place] [phone] * (ABNORMAL) Urinalysis, Complete, with Reflex to Culture (08/10/2025 1:49 PM EDT) Color Urine Yellow [facility] Appearance Urine Clear [facility] PH 5.0 5.0 - 9.0 [facility] Glucose Urine UA Negative Negative mg/dL [facility] Urine Blood Negative Negative [facility] Specific [place] - Urine 1.015 1.005 - 1.025 [facility] Urine Protein Trace Neg-Trace mg/dL [facility] Urine Ketones Trace Negative mg/dL [facility] Nitrite Urine Negative Negative [facility] Leukocyte Esterase Urine Small (1+)(A) Negative [facility] RBC Urine 0-2 0 - 2 /HPF [facility] Urine WBC 6-10(A) 0 - 5 /HPF [facility] Urine Squamous Epithelial Cell 0-2 0 - 2 /HPF [facility] Urine Bacteria None Seen None Seen [facility] Hyaline Casts, Urine 11-20 0 - 2 /LPF [facility] 08/10/2025 1:49 PM EDT 08/10/2025 1:52 PM EDT Narrative [facility] - 08/10/2025 2:09 PM EDT [id number], Catheterized us Generic External Data Provider LAB URINE ORDERAB LES Final Result [facility] [address] [place] [phone] * Drug Monitoring, Panel 1, Screen, Urine (08/10/2025 1:49 PM EDT) Opiate Screen Urine Not Detected Not Detect [facility] Comment:Opiate cut-off is 30 0 ng/mL.Positive results are unconfirmed and should not be used fornon-medical purposes. Barbiturates, Urine Not Detected Not Detect [facility] Comment:Barbiturate cut-off is 200 ng/mL.Positive results are unconfirmed and should not be used fornon-medical purposes. Phencyclidine Screen Urine Not Detected Not Detect [facility] Comment:Phencyclidine cut-of f is 25 ng/mL.Positive results are unconfirmed and should not be used fornon-medical purposes. Amphetamine Screen Urine Not Detected Not Detect [facility] Comment:Amphetamine cut-off is 1000 ng/mL.Positive results are unconfirmed and should not be used fornon-medical purposes. Benzodiazepines Screen Urine Not Detected Not Detect [facility] Comment:Benzodiazepine cut-o ff is 200 ng/mL.Positive results are unconfirmed and should not be used fornon-medical purposes. Cocaine Screen Urine Not Detected Not Detect [facility] Comment:Cocaine cut-off is 3 00 ng/mL.Positive results are unconfirmed and should not be used fornon-medical purposes. Cannabinoid Screen Urine Not Detected Not Detect [facility] Comment:Cannabinoid cut-off is 50 ng/mL.Positive results are unconfirmed and should not be used fornon-medical purposes. Methadone Screen, Urine Not Detected Not Detect ng/mL [facility] Comment:Methadone cut-off is 300 ng/mL.Positive results are unconfirmed and should not be used fornon-medical purposes. FENTANYL URINE Not Detected Not Detect [facility] Comment:Fentanyl cut-off is 1 ng/mL.Positive results are unconfirmed and should not be used fornon-medical purposes. Oxycodone Urine Screen Not Detected Not Detect ng/mL [facility] Comment:Oxycodone cut-off is 100 ng/mL.Positive results are unconfirmed and should not be used fornon-medical purposes. Buprenorphine Screen Not Detected Not Detect ng/mL [facility] Comment:Buprenorphine cut-of f is 5 ng/mL.Positive results are unconfirmed and should not be used fornon-medical purposes. 08/10/2025 1:49 PM EDT 08/10/2025 1:52 PM EDT us Generic External Data Provider LAB URINE ORDERAB LES Final Result [facility] [address] [place] [address] [phone] * CT Head w/o Contrast (08/10/2025 1:05 PM EDT) Anatomical Region Laterality Modality Head, Neck Computed Tomogra phy 08/10/2025 1:05 PM EDT Narrative 08/10/2025 1:45 PM EDT [address] [address] [address] Scan Report Signed Patient: Marin Valdez MR#: [id number] : 1950 Acct:[id number] Age/Sex: 74 / M ADM Date: 08/10/25 Loc: HO.ED Attending Dr: Ordering Physician: Jennifer Barahona Date of Service: 08/10/25 Procedure(s): CT head/brain wo IV con Accession Number(s): [id number] cc: Marleny Beebe MD; Jennifer Barahona Report Number: [id number]: Total DLP = 887.00 mGy-cm Reason for [...] 08/10/25 1342 DD/ 1305 TD/TT: 08/10/25 1315 [employer]: Procedure Note Donotuseinterpreter, Image - 08/10/[address] [address] [address] Scan Report Signed Patient: Royce Valdez#: [id number] : 1950cct:[id number] Age/Sex: 74 / MADM Date: 08/10/25 Loc: .ED Attending Dr: Ordering Physician: Jennifer Barahona Date of Service: 08/10/25 Procedure(s): CT head/brain wo IV con Accession Number(s): [id number] cc: Marleny Beebe MD; Jennifer Barahona Report Number: [id number]: Total DLP = 887.00 mGy-cm Reason for [...] 08/10/25 1342 DD/ 1305 TD/TT: 08/10/25 1315 [employer]: [facility] External Provider IMG CT PROCEDURES Final Result * CT Abdomen Pelvis w/o Contrast (08/10/2025 1:05 PM EDT) Anatomical Region Laterality Modality Body, Pelvis, Abdomen Computed T omography 08/10/2025 1:05 PM EDT Narrative 08/10/2025 1:52 PM EDT [place] [address] [address] Scan Report Signed Patient: Marin Valdez MR#: [id number] : 1950 Acct:[id number] Age/Sex: 74 / M ADM Date: 08/10/25 Loc: .ED Attending Dr: Ordering Physician: Jennifer Barahona Date of Service: 08/10/25 Procedure(s): CT abdomen pelvis wo IV con Accession Number(s): [id number] cc: Marleny Beebe MD; Jennifer Barahona Report Number: [id number]: Total DLP = 1129.00 mGy-cm Reason for [...] 08/10/25 1349 DD/ 1305 TD/TT: 08/10/25 1315 [employer]: Procedure Note Donotuseinterpreter, Image - 08/10/[address] [place] [address] [address] Scan Report Signed Patient: Royce Valdez#: [id number] : 2Acct:[id number] Age/Sex: 74 / MADM Date: 08/10/25 Loc: HO.ED Attending Dr: Ordering Physician: Jennifer Barahona Date of Service: 08/10/25 Procedure(s): CT abdomen pelvis wo IV con Accession Number(s): [id number] cc: Marleny Beebe MD; Jennifer Barahona Report Number: [id number]: Total DLP = 1129.00 mGy-cm Reason for [...] 08/10/25 1349 DD/ 1305 TD/TT: 08/10/25 1315 [employer]: [facility] External Provider IMG CT PROCEDURES Final Result * XR Chest 1 View (08/10/2025 12:38 PM EDT) Anatomical Region Laterality Modality Chest Radiographic Guillermina ging 08/10/2025 12:3 8 PM EDT Narrative 08/10/2025 12:59 PM EDT [address] [address] XRay Report Signed Patient: Marin Valdez MR#: [id number] : 1950 Acct:[id number] Age/Sex: 74 / M ADM Date: 08/10/25 Loc: .ED Attending Dr: Ordering Physician: Jennifer Barahona Date of Service: 08/10/25 Procedure(s): XR chest 1V Accession Number(s): [id number] cc: Marleny Beebe MD; Jennifer Barahona Reason [...] 08/10/25 1255 DD/ 1238 TD/TT: 08/10/25 1252 [employer]: Procedure Note Donotuseinterpreter, Image - 08/10/2025 [place] [address] XRay Report Signed Patient: Marin ValdezMR#: [id number] : 1950cct:[id number] Age/Sex: 74 / MADM Date: 08/10/25 Loc: .ED Attending Dr: Ordering Physician: Jennifer Barahona Date of Service: 08/10/25 Procedure(s): XR chest 1V Accession Number(s): [id number] cc: Marleny Beebe MD; Jennifer Barahona Reason [...] 08/10/25 1255 DD/ 1238 TD/TT: 08/10/25 1252 [employer]: [facility] External Provider IMG XR PROCEDURES Final Result * Lactic Acid (08/10/2025 12:22 PM EDT) Lactic Acid 1.7 0.5 - 2.0 mmol/L [facility] 08/10/2025 12:2 2 PM EDT 08/10/2025 12:29 PM EDT Generic External Data Provider LAB BLOOD ORDERAB LES Final Result [facility] [address] [place] [phone] * NT-proBNP (08/10/2025 11:06 AM EDT) NT-proBNP 180.3 <300 pg/mL [facility] Comment:Reference Range:Age Group (years) NT-proBNP (pg/ml) InterpretationAll <300 Negative: HF unlikelyFor patients presenting to the ED with clinical suspicion ofnew onset or worsening HF, see below:18 to <50 >299.9 to <450.0 Grayzone: Fyzttizi12 to 75 >299.9 to <900.0 other causes of>75 >299.9 to <1800.0 NT-proBNP wjiqgvelw79 to <50 >449.9 Positive: HF daizla78-88 >899.9>75 >1799.9Note: Elevated NT-proBNP levels should be interpreted inthe context of other clinical information. 08/10/2025 11:0 6 AM EDT 08/10/2025 11:13 AM EDT us Generic External Data Provider LAB BLOOD ORDERAB LES Final Result [facility] [address] [place] [address] [phone] * (ABNORMAL) CBC auto differential (08/10/2025 11:06 AM EDT) Only the most recent of2 resultswithin the time period is included. White Blood Count 12.7(H) 4.8 - 10.8 X10*3/uL [facility] Red Blood Count 3.83(L) 4.60 - 5.80 X10*6/uL [facility] Hemoglobin 11.2(L) 14.0 - 18.0 g/dl [facility] Hematocrit 33.2(L) 42.0 - 52.0 % [facility] Mean Corpuscular Volume 86.7 80.0 - 98.0 fL [facility] Mean Corpuscular Hemoglobin 29.2 27.0 - 33.0 pg [facility] Mean Corpuscular HGB Conc 33.7 31.0 - 36.0 g/dl [facility] Red Cell Distribution Width 13.9 11.0 - 16.0 % [facility] Platelet Count 233 160 - 400 X10*3/uL [facility] Mean Platelet Volume 10.5 9.4 - 12.4 fL [facility] Neutrophils Percent Auto 61.7 45 - 73 % [facility] Imm Gran Pct Auto 0.9(H) 0.0 - 0.4 % [facility] Lymphocytes Percent Auto 26.9 20 - 40 % [facility] Monocytes Percent Auto 9.3 2 - 11 % [facility] Eosinophils Percent Auto 1.0 0 - 4 % [facility] Basophils Percent Auto 0.2 0 - 2 % [facility] NRBC Pct Auto 0.0 0.0 - 0.2 /100WBC [facility] Neutrophils Absolute Auto 7.8 2.0 - 8.3 x10*3/uL [facility] Imm Gran Abs Auto 0.11(H) 0.00 - 0.03 X10*3/uL [facility] Lymphocytes Absolute Auto 3.4 1.2 - 4.9 X10*3/uL [facility] Monocytes Absolute Auto 1.2 0.1 - 1.2 X10*3/uL [facility] Eosinophils Absolute Auto 0.1 0.0 - 0.4 X10*3/uL [facility] Basophils Absolute Auto 0.0 0.0 - 0.2 X10*3/uL [facility] NRBC Abs Auto 0.000 0.0 - 0.012 X10*3/uL [facility] 08/10/2025 11:0 6 AM EDT 08/10/2025 11:12 AM EDT us Generic External Data Provider LAB BLOOD ORDERAB LES Final Result Performing Organization Address [facility]/ZIP Co de Phone Number [facility] [address] [place] [address] [phone] * (ABNORMAL) Magnesium (08/10/2025 11:06 AM EDT) Magnesium 1.5(L) 1.6 - 2.6 mg/dL [facility] 08/10/2025 11:0 6 AM EDT 08/10/2025 11:12 AM EDT Generic External Data Provider LAB BLOOD ORDERAB LES Final Result Performing Organization Address [facility] [facility] Co de Phone Number [facility] [address] [place] [address] [phone] * Creatine Kinase, Total (08/10/2025 11:06 AM EDT) Pathologist [facility] Creatine Kinase Total 109 38 - 174 U/L [facility] 08/10/2025 11:0 6 AM EDT 08/10/2025 11:12 AM EDT Generic External Data Provider LAB BLOOD ORDERAB LES Final Result Performing Organization Address [facility] de Phone Number [facility] [address] [place] [phone] * Hepatic Function Panel (08/10/2025 11:06 AM EDT) [facility] Bilirubin, Total 0.4 0.0 - 1.0 mg/dL [facility] Bilirubin, Direct 0.1 0.0 - 0.5 mg/dL [facility] Aspartate Amino Transferase 21 5 - 37 U/L [facility] Alanine Aminotransferase 19 0 - 40 U/L [facility] Total Protein 6.7 6.5 - 8.0 g/dL [facility] Albumin Level 3.8 3.5 - 5.0 g/dL [facility] Alkaline Phosphatase 67 39 - 117 U/L [facility] 08/10/2025 11:0 6 AM EDT 08/10/2025 11:12 AM EDT Generic External Data Provider LAB BLOOD ORDERAB LES Final Result Performing Organization Address [facility] de Phone Number [facility] [address] [place] [phone] * (ABNORMAL) Basic Metabolic Panel (08/10/2025 11:06 AM EDT) Pathologist [facility] Sodium 133(L) 135 - 145 mmol/L [facility] Potassium 4.1 3.3 - 5.1 mmol/L [facility] Chloride 100 96 - 108 mmol/L [facility] Carbon Dioxide 22 22 - 29 mmol/L [facility] Anion Gap 15 12 - 20 [facility] Urea Nitrogen (BUN) 70(H) 9 - 16 mg/dL [facility] Creatinine, Serum 3.91(H) 0.5 - 1.4 mg/dL [facility] Creatinine Clr Calc Pharmacy 22.3 [facility] Comment:eGFR (calculated fro m the MDRD study equation) and eCrCl(calculated from the Cockcroft-Gault equation) are based ondifferent parameters and may not yield comparable results.If eCrCl result is absurd, please check patient'sheight/weight. Estimated Glomerular Filt Rate 15 [facility] Comment:Chronic Kidney Disea se: Estimated GFR < 60 mL/min/1.02w0Eayvnq Kidney Disease: Estimated GFR < 15 mL/min/1.73m2 Glucose 148(H) 60 - 115 mg/dL [facility] Calcium 7.9(L) 8.4 - 10.2 mg/dL [facility] 08/10/2025 11:0 6 AM EDT 08/10/2025 11:12 AM EDT us Generic External Data Provider LAB BLOOD ORDERAB LES Final Result Performing Organization Address City/[facility]/ZIP Co de Phone Number [facility] [address] [place] [phone] * HOLD LT BLUE - POSSIBLE COAG (08/10/2025 11:05 AM EDT) Hold Lt Blue - Possible Coag SEE NOTE [facility] Comment:Specimen will be hel d untested for 4 hours. Call Hematologyif testing is desired. 08/10/2025 11:0 5 AM EDT 08/10/2025 11:16 AM EDT us Generic External Data Provider LAB BLOOD ORDERAB LES Final Result Performing Organization Address [facility]/ZIP Co de Phone Number [facility] [address] [place] [address] [phone] * (ABNORMAL) POCT glucose manually resulted (06/14/2025 3:07 PM EDT) Only the most recent of2 resultswithin the time period is included. Pathologist [facility] Glucose Blood, POC 224(A) 60 - 200 mg/dL Blood Capillary blood specimen / Unknown 06/14/2025 3:07 PM EDT us Jasen Lamar MD POINT OF CARE TEST ENTER/EDIT OR DERABLES Final Result * (ABNORMAL) POCT A1c (06/14/2025 3:04 PM EDT) Pathologist [facility] Hemoglobin A1C 8.3(A) 4.0 - 5.7 % Blood 06/14/2025 3:04 PM EDT Jasen Lamar MD POINT OF CARE TEST ENTER/EDIT OR DERABLES Final Result * Influenza B (ID NOW Rapid Molecular) (06/03/2025 2:48 PM EDT) Pathologist [facility] Influenza B Negative Negative, Indeterminate [facility] Swab 06/03/2025 2:48 PM EDT us Jasen Lamar MD POINT OF CARE TEST ENTER/EDIT OR DERABLES Final Result Performing Organization Address [facility]/ZIP Co de Phone Number [facility] [address] [place] [phone] * Influenza A (ID NOW Rapid Molecular) (06/03/2025 2:48 PM EDT) Pathologist [facility] Influenza A Negative Negative, Indeterminate [facility] Swab 06/03/2025 2:48 PM EDT Jasen Lamar MD POINT OF CARE TEST ENTER/EDIT OR DERABLES Final Result Performing Organization Address [facility]/ZIP Co de Phone Number [facility] [address] [place] [phone] * POCT Rapid COVID Ag (06/03/2025 2:48 PM EDT) Rapid COVID Ag Negative [facility] Swab 06/03/2025 2:48 PM EDT us Jasen Name MD POINT OF CARE TEST ENTER/EDIT OR DERABLES Final Result [facility] [address] [place] [address] [phone] * (ABNORMAL) Comprehensive Metabolic Panel (05/27/2025 4:11 PM EDT) Sodium 138 135 - 145 mmol/L [facility] Potassium 5.0 3.3 - 5.1 mmol/L [facility] Comment:Mild Hemolysis.Inter pret result with caution Chloride 103 96 - 108 mmol/L [facility] Carbon Dioxide 23 22 - 29 mmol/L [facility] Anion Gap 17 12 - 20 [facility] Urea Nitrogen (BUN) 17(H) 9 - 16 mg/dL [facility] Creatinine, Serum 1.01 0.5 - 1.4 mg/dL [facility] Estimated Glomerular Filt Rate >60 [facility] Comment:Chronic Kidney Disea se: Estimated GFR < 60 mL/min/1.85b2Vnhhhv Kidney Disease: Estimated GFR < 15 mL/min/1.73m2 Glucose 138(H) 60 - 115 mg/dL [facility] Calcium 8.5 8.4 - 10.2 mg/dL [facility] Bilirubin, Total 0.4 0.0 - 1.0 mg/dL [facility] Aspartate Amino Transferase 36 5 - 37 U/L [facility] Comment:Mild Hemolysis.Inter pret result with caution Alanine Aminotransferase 18 0 - 40 U/L [facility] Total Protein 7.7 6.5 - 8.0 g/dL [facility] Comment:Mild Hemolysis.Inter pret result with caution Albumin Level 4.0 3.5 - 5.0 g/dL [facility] Alkaline Phosphatase 72 39 - 117 U/L [facility] Blood Venous blood specimen / Unknown 05/27/2025 4:11 PM EDT 05/27/2025 5:41 PM EDT us Judy Meraz NP LAB BLOOD ORDERABLES Final Resul t Performing Organization Address City/[facility]/ZIP Co de Phone Number [facility] [address] [place] [phone] * Lipid Panel with Reflex to Direct LDL (05/23/2023 11:16 AM EDT) Triglycerides 91 mg/dL [facility] Comment:Desirable Triglyceri de: less than 150 mg/dLBorderline High Triglyceride 150-199 mg/dLHigh Triglyceride: 200-499 mg/dLVery High Triglyceride: greater than or equal to 5OO mg/dL Cholesterol 129 mg/dL [facility] Comment:Desirable Cholestero l: less than 200 mg/dLBorderline High Cholesterol: 200-239 mg/dLHigh Cholesterol: greater than 239 mg/dL LDL Cholesterol Calculated 73 mg/dl [facility] Comment:Desirable LDL: less than 100 [...] ORDERABLES Fin al Result Performing Organization Address City/[facility]/ZIP Co de Phone Number [facility] [address] [place] [phone] [phone] * Hepatitis Panel, General (05/23/2023 11:16 AM EDT) Hepatitis A IgM Nonreactive Nonreactive [facility] Comment:IgM antibodies to COTTO V not detected; does not exclude earlyacute or recovered HAV infection. ~Hepatitis B Surface Antibody REACTIVE Nonreactive [facility] Comment:REACTIVE: > 11.99 mI U/mL Hepatitis B Core Antibody Reactive Nonreactive [facility] Comment:Presumptive evidence of anti-HBc. Hepatitis C Antibody Nonreactive Nonreactive [facility] Comment:Antibodies to HCV no t detected; does not exclude early acuteHCV infection. Hepatitis B Surface Ag Negative Negative [facility] Blood 05/23/2023 11:1 6 AM EDT 05/23/2023 1:49 PM EDT us Marleny Beebe MD LAB BLOOD ORDERABLES Fin al Result Performing Organization Address [facility] de Phone Number [facility] [address] [place] [phone] * Albumin, Random Urine W/Creatinine (05/23/2023 11:15 AM EDT) Creatinine, Urine 68.04 mg/dL [facility] Microalbumin Urine 12.0 mg/L [facility] Microalbum Creatinine Ratio Ur 17.6 ug/mg cr [facility] Comment:Albumin/Creatinine R atio Reference Ranges: Normal: < 30 ug/mg creatinine Microalbuminuria: 30 - 300 ug/mg creatinineClinical Albuminuria: > 300 ug/mg creatinine 05/23/2023 11:1 5 AM EDT 05/23/2023 4:32 PM EDT us Marleny Beebe MD LAB URINE ORDERABLES Fin al Result Performing Organization Address [facility] Co de Phone Number [facility] [address] [place] [phone] from Last 3 Months or Most Recently Relevant to Health Maintenance Insurance [facility] STANDARD FORMERLY [facility] OPTIONS (HMO D-SNP) DENTAL - HSN FULL (MEDICAID) [address] [place] [address] Care Teams Truss Designer Relationship Specialty Start Date End Date Marleny Beebe MD [address] [place] [phone] PCP - General Family Medicine 12/25/16 Kavin Tan, PharmD [address] [place] [address] [phone] Pharmacist Pharmacy 07/13/25
--- OUTSIDE RECORDS SUMMARY | 2025-08-22 17:42 | XMS_ITS | Encounter Summary ---
Author Organization [employer] Address [address] [facility] 7t [place] [address] Care Team Providers Care Machine Tack Puller Name Role Phone Marleny Beebe MD Primary Care Provider + Kavin Tan PharmD Unavailable [phone] Encounter Details Date Type Department Care Team (Late st Contact Info) Description 03/26/2023 Orders Only [facility] MED & PEDS [address] [place], [place] [phone] Dejah Stewart LPN Social History Tobacco Use [...] Description 08/31/2025 10:30 AM EST Office Visit [address] [address] Marleny Beebe MD [address] [place] [address] 09/07/2025 9:00 AM EST Medication Management [address] [address] Kavin Tan, PharmD [address] [place] [address] documented as of this encounter Visit Diagnoses Not on filedocumented in this encounter Care Teams Machine Tack Puller Relationship Specialty Start Date End Date Marleny Beebe MD [address] [place], [place] [phone] PCP - General Family Medicine 12/25/16 Kavin Tan, NahumD [address] [place] [address] Pharmacist Pharmacy 07/13/25 documented as of this encounter
--- OUTSIDE RECORDS SUMMARY | 2025-08-22 17:42 | XMS_ITS | Clinical Summary ---
Author Organization [facility] ity Address [address] [place] [address] Care Team Providers Care Pv Design And Installation Technician Name Role Phone Saad Cesar MD Primary Care Provider Immunizations Immunization Administration Dates Next Due Moderna SARS-CoV-2 COVID-19, mRNA, LNP-S, preservative free 11/02/2021,02/08/2021,01/11/2021 Surgical History Surgery Date Site/Laterality Comments KNEE ARTHROSCOPY PROCEDURE: OK ARTHROSCOPY KNEE DIAGNOSTIC W/WO SYNOVIAL BX SPX; COMMENT: had multiple in debbie past OTHER SURGICAL HISTORY 2012 PROCEDURE: OK UNLISTED PX ABDOMEN MUSCULOSKELETAL SYSTEM; COMMENT: for ischemic colitis and gangrenous colitis OTHER SURGICAL HISTORY PROCEDURE: OK UNLISTED PROCEDURE SPINE; COMMENT: for bulged disc CIRCUMCISION, PRIMARY PROCEDURE: HISTORICAL CIRCUMCISION OTHER SURGICAL HISTORY 11/26 PROCEDURE: OK REVJ COLOSTOMY SMPL RLS SUPFC SCAR SPX Medical History Medical History Date Comments Gout DX:Gout Hypertension DX:Hypertension Type 2 diabetes mellitus wit h diabetic nephropathy ([facility] V24, [facility] V28) DX: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 (HCC) Left leg DVT ([facility] V24, [facility] [place] V28) DX:Left leg DVT (HCC) Leg edema DX:Leg edema Osteoarthritis DX:Osteoarthriti s Arthritis, lumbar spine DX:Arthr itis, lumbar spine; COMMENT: recieved cortisone injections, had surgery Ischemic colon ([facility] V24) DX: Ischemic colon (HCC) Acute vascular insufficiency of intestine ([facility] V24) DX:Acute vascular insufficie ncy of intestine ([facility]); COMMENT: s/p surgery COPD (chronic obstructive pu lmonary disease) [facility], [facility] V28) DX:COPD (chronic o bstructive pulmonary disease) ([facility]); COMMENT: emphysema Obstructive sleep apnea DX:Obstr uctive sleep apnea; COMMENT: on CPAP at night Depression, major DX:Depression, major Ileostomy in place ([facility] V24, [facility] V28) 09/25/2012 DX:Ileostomy in place ([facility]) Osteoarthritis DX:Osteoarthriti s Type II or unspecified type diabetes mellitus with unspecified complication, not stated as uncontrolled DX:Type II or unspecified ty pe diabetes mellitus with unspecified complication, not stated as uncontrolled CKD (chronic kidney disease) stage 3, GFR 30-59 ml/min ([facility] V24, [facility] V28) 05/03/2013 DX:CKD (chronic kidney disea se) stage 3, GFR 30-59 ml/min ([facility]) COPD (chronic obstructive pu lmonary disease) ([facility] V24, [facility] V28) DX:COPD (chronic o bstructive pulmonary disease) ([facility]) Incisional hernia 02/17/2014 DX:Incisional hernia Hyperlipidemia 06/28/2015 DX:Hyperlipidemi a Family History Medical History Relation Name Comments Lung cancer Father Diabetes Mother Other cancer Mother Blindness Neg Hx Cataracts Neg Hx Glaucoma Neg Hx Macular degeneration Neg Hx Strabismus Neg Hx Relation Name Status Comments Father Mother Social History Tobacco Use Types Packs/Day Years Used Date Smoking Tobacco: Former Cigarettes 0 Q uit: 10/13/1993 Smokeless Tobacco: Former Alcohol [...] age to complete this topic Care Teams Pv Design And Installation Technician Relationship Specialty Start Date End Date Saad Cesar MD PCP - General Internal Medicine 09/16/12
--- OUTSIDE RECORDS SUMMARY | 2025-08-22 17:42 | XMS_ITS | Encounter Summary ---
Author Organization [employer] Address [address] [facility] 7t [place] [address] Care Team Providers Care Welder Apprentice Arc Name Role Phone Marleny Beebe MD Primary Care Provider + Kavin Tan PharmD Unavailable [phone] Encounter Details Date Type Department Care Team (Late st Contact Info) Description 08/10/2025 Results Follow-Up [facility] [address] [place] [address] Marleny Beebe MD [address] [place] [address] CBC auto differential, HOLD LT BLUE - [...] Description 08/31/2025 10:30 AM EST Office Visit [facility] [address] [place] [phone] Marleny Beebe MD [address] [place] [phone] 09/07/2025 9:00 AM EST Medication Management [facility] [address] [place] [phone] Kavin Tan PharmD [address] [place] [phone] documented as of this encounter Visit Diagnoses Not on filedocumented in this encounter Care Teams Welder Apprentice Arc Relationship Specialty Start Date End Date Marleny Beebe MD [address] [place] [address] PCP - General Family Medicine 12/25/16 Kavin Tan, PharmD [address] [place] [phone] Pharmacist Pharmacy 07/13/25 documented as of this encounter
--- OUTSIDE RECORDS SUMMARY | 2025-08-22 17:42 | XMS_ITS | Encounter Summary ---
Author Organization [employer] Address [address] [place] [address] 7t [place] [address] Care Team Providers Care Hollow Handle Knife Assembler Name Role Phone Marleny Beebe MD Primary Care Provider + Kavin Tan PharmD Unavailable [phone] Reason for Visit * Reason Comments Med Refill Encounter Details Date Type Department Care Team (Late st Contact Info) Description 03/06/2023 Refill [facility] [address] [place] [address] [phone] Marleny Beebe MD [address] [place] [address] [phone] Controlled type 2 diabetes mellitus with hyperglycemia, with long-term current use of insulin ([facility]); Primary hypertension Social History Tobacco [...] Description 08/31/2025 10:30 AM EST Office Visit [facility] [address] [place] [address] [phone] Marleny Beebe MD [address] [place] [address] [phone] 09/07/2025 9:00 AM EST Medication Management [facility] [address] [place] [address] [phone] Kavin Tan, PharmD [address] [place] [phone] documented as of this encounter Visit Diagnoses Diagnosis Controlled type 2 diabetes mellitus with hyperglycemia, with long-term current use of insulin (HCC) Primary hypertension Unspecified essential hypertension documented in this encounter Care Teams Hollow Handle Knife Assembler Relationship Specialty Start Date End Date Marleny Beebe MD [address] [place] [phone] PCP - General Family Medicine 12/25/16 Kavin Tan, PharmD [address] [place] [phone] Pharmacist Pharmacy 07/13/25 documented as of this encounter
--- OUTSIDE RECORDS SUMMARY | 2025-08-22 17:42 | XMS_ITS | Encounter Summary ---
Author Organization [employer] Address [address] [facility] 7t [place] [address] Care Team Providers Care Utilization Review Rn Name Role Phone Marleny Beebe MD Primary Care Provider + Kavin Tan PharmD Unavailable [phone] Encounter Details Date Type Department Care Team (Late st Contact Info) Description 05/26/2023 Orders Only [facility] MED & PEDS [address] [place], [place] [phone] Dejah Stewart LPN Social History Tobacco Use [...] Description 08/31/2025 10:30 AM EST Office Visit [facility] [address] [place] [address] [phone] Marleny Beebe MD [address] [place] [phone] 09/07/2025 9:00 AM EST Medication Management [facility] [address] [place] [phone] Kavin Tan, PharmD [address] [place] [address] documented as of this encounter Visit Diagnoses Not on filedocumented in this encounter Care Teams Utilization Review Rn Relationship Specialty Start Date End Date Marleny Beebe MD [address] [place] [address] PCP - General Family Medicine 12/25/16 Kavin Tan, PharmD [address] [place] [phone] Pharmacist Pharmacy 07/13/25 documented as of this encounter
--- OUTSIDE RECORDS SUMMARY | 2025-08-22 17:42 | XMS_ITS | Encounter Summary ---
Author Organization [employer] Address [address] [facility] 7t [place] [address] Care Team Providers Care Aging Room Operator Name Role Phone Marleny Beebe MD Primary Care Provider + Kavin Tan PharmD Unavailable [phone] Encounter Details Date Type Department Care Team (Late st Contact Info) Description 03/06/2023 Orders Only [facility] CH[facility] MED & PEDS [address] [place], [place] [phone] Dejah Stewart LPN Social History Tobacco Use [...] Description 08/31/2025 10:30 AM EST Office Visit [address] [address] Marleny Beebe MD [address] [place] [phone] 09/07/2025 9:00 AM EST Medication Management [address] [address] Kavin Tan, PharmD [address] [place] [address] documented as of this encounter Visit Diagnoses Not on filedocumented in this encounter Care Teams Aging Room Operator Relationship Specialty Start Date End Date Marleny Beebe MD [address] [place], [place] [phone] PCP - General Family Medicine 12/25/16 Kavin Tan, NahumD [address] [place] [address] Pharmacist Pharmacy 07/13/25 documented as of this encounter
--- OUTSIDE RECORDS SUMMARY | 2025-08-22 17:42 | XMS_ITS | Encounter Summary ---
Author Organization [employer] Address [address] [place] [address] 7t [place] [address] Care Team Providers Care Blower Installer Name Role Phone Marleny Beebe MD Primary Care Provider + Kavin Tan PharmD Unavailable [phone] Reason for Visit * Reason Comments Med Refill Encounter Details Date Type Department Care Team (Late st Contact Info) Description 01/29/2023 Refill [facility] [address] [place] [address] [phone] Marleny Beebe MD [address] [place] [address] [phone] Controlled type 2 diabetes mellitus with hyperglycemia, with long-term current use of insulin ([facility]); Primary hypertension Social History Tobacco [...] Description 08/31/2025 10:30 AM EST Office Visit [facility] [address] [place] [address] [phone] Marleny Beebe MD [address] [place] [address] [phone] 09/07/2025 9:00 AM EST Medication Management [facility] [address] [place] [address] [phone] Kavin Tan, PharmD [address] [place] [phone] documented as of this encounter Visit Diagnoses Diagnosis Controlled type 2 diabetes mellitus with hyperglycemia, with long-term current use of insulin (HCC) Primary hypertension Unspecified essential hypertension documented in this encounter Care Teams Blower Installer Relationship Specialty Start Date End Date Marleny Beebe MD [address] [place] [phone] PCP - General Family Medicine 12/25/16 Kavin Tan, PharmD [address] [place] [phone] Pharmacist Pharmacy 07/13/25 documented as of this encounter
--- OUTSIDE RECORDS SUMMARY | 2025-08-22 17:42 | XMS_ITS | Encounter Summary ---
Author Organization [employer] Address [address] [facility] 7t [place] [address] Care Team Providers Care Marine Electrician Name Role Phone Marleny Beebe MD Primary Care Provider + Kavin Tan PharmD Unavailable [phone] Reason for Visit * Reason Onset Date Comments Durable Medical Equipment 08/16/2025 Encounter Details Date Type Department Care Team (Late st Contact Info) Description 08/16/2025 Telephone [facility] [address] [place], [place] [phone] Marleny Beebe MD [address] [place], [place] [phone] Durable Medical Equipment Social History Tobacco Use [...] Description 08/31/2025 10:30 AM EST Office Visit [facility] [address] [place] [address] Marleny Beebe MD [address] [place], [place] [phone] 09/07/2025 9:00 AM EST Medication Management [facility] [address] [place] [address] [phone] Kavin Tan, PharmD [address] [place] [phone] documented as of this encounter Visit Diagnoses Not on filedocumented in this encounter Care Teams Marine Electrician Relationship Specialty Start Date End Date Marleny Beebe MD [address] [place] [address] [phone] PCP - General Family Medicine 12/25/16 Kavin Tan, PharmD [address] [place] [address] [phone] Pharmacist Pharmacy 07/13/25 documented as of this encounter
--- OUTSIDE RECORDS SUMMARY | 2025-08-22 17:42 | XMS_ITS | Encounter Summary ---
Author Organization [employer] Address [address] [facility] 7t [place] [address] Care Team Providers Care Zyglo Inspector Name Role Phone Marleny Beebe MD Primary Care Provider + Kavin Tan PharmD Unavailable [phone] Reason for Visit * Reason Comments Med Refill Encounter Details Date Type Department Care Team (Late st Contact Info) Description 05/30/2023 Refill [facility] [address] [place], [place] [phone] Laurel Jiang MD [address] [place] [address] [phone] Anxiety and depression Social History Tobacco Use [...] Description 08/31/2025 10:30 AM EST Office Visit [facility] [address] [place] [address] Marleny Beebe MD [address] [place] [address] 09/07/2025 9:00 AM EST Medication Management [facility] [address] [place], [place] [phone] Kavin Tan, PharmD [address] [place] [address] documented as of this encounter Visit Diagnoses Diagnosis Anxiety and depression documented in this encounter Care Teams Zyglo Inspector Relationship Specialty Start Date End Date Marleny Beebe MD [address] [place] [address] [phone] PCP - General Family Medicine 12/25/16 Kavin Tan, PharmD [address] [place] [address] [phone] Pharmacist Pharmacy 07/13/25 documented as of this encounter
--- OUTSIDE RECORDS SUMMARY | 2025-08-22 17:42 | XMS_ITS | Encounter Summary ---
Author Organization [employer] Address [address] [place] [address] 7t [place] [address] Care Team Providers Care Safety Assistant Name Role Phone Marleny Beebe MD Primary Care Provider + Kavin Tan PharmD Unavailable [phone] Encounter Details Date Type Department Care Team (Late st Contact Info) Description 10/25/2022 Orders Only [address] [address] Jyothi Mccarthy LPN Social History Tobacco Use [...] Description 08/31/2025 10:30 AM EST Office Visit [address] [address] Marleny Beebe MD [address] [place] [address] 09/07/2025 9:00 AM EST Medication Management [address] [address] Kavin Tan, PharmD [address] [place] [address] documented as of this encounter Visit Diagnoses Not on filedocumented in this encounter Care Teams Safety Assistant Relationship Specialty Start Date End Date Marleny Beebe MD [address] [place] [address] PCP - General Family Medicine 12/25/16 Kavin Tan, Ana [address] [place] [address] Pharmacist Pharmacy 07/13/25 documented as of this encounter
--- OUTSIDE RECORDS SUMMARY | 2025-08-22 17:42 | XMS_ITS | Encounter Summary ---
Author Organization [employer] Address [address] 7[address] [place] [address] Care Team Providers Care Disaster Response Director Name Role Phone Marleny Beebe MD Primary Care Provider + Kavin Tan PharmD Unavailable [phone] Encounter Details Date Type Department Care Team (Late st Contact Info) Description 07/11/2025 Orders Only [facility] [address] [place] [address] Marleny Beebe MD [address] [place], [place] [phone] Benign essential hypertension (Primary Dx) Social History [...] 10:30 AM EST Office Visit [facility] [address] [place] [address] Marleny Beebe MD [address] [place] [address] 09/07/2025 9:00 AM EST Medication Management [facility] [address] [place] [address] Kavin Tan, PharmD [address] [place] [address] documented as of this encounter Procedures Procedure [...] PM EDT Narrative 08/11/2025 7:27 PM EDT [place] [address] [address] Scan Report Signed Patient: Marin Valdez MR#: [id number] : 1950 Acct:[id number] Age/Sex: 74 / M ADM Date: 08/10/25 Loc: [facility] 474-[address]: Lonnie Lemus MD Ordering Physician: Lonnie Lemus MD Date of Service: 08/11/25 Procedure(s): CT cervical spine wo IV con Accession Number(s): [id number] cc: Marleny Beebe MD; Lonnie Lemus MD Report Number: [id number]: Total DLP = 581.00 mGy-cm Reason for [...] in OV> 08/11/251925 DD/ 24 TD/TT: 08/11/251924 Speech Therapist Technician: Procedure Note Donotuseinterpreter, Image - 08/11/[address] [place] [address] [address] Scan Report Signed Patient: Royce Valdez#: [id number] : 1950cct:[id number] Age/Sex: 74 / MADM Date: 08/10/25 Loc: [facility] 474-[address]: Lonnie Lemus MD Ordering Physician: Lonnie Lemus MD Date of Service: 08/11/25 Procedure(s): CT cervical spine wo IV con Accession Number(s): [id number] cc: Marleny Beebe MD; Lonnie Lemus MD Report Number: [id number]: Total DLP = 581.00 mGy-cm Reason for [...] in OV> 08/11/251925 DD/ 24 TD/TT: 08/11/251924 Speech Therapist Technician: [facility] External Provider IMG CT PROCEDURES Final Result * High Sensitivity Troponin I (08/10/2025 2:23 PM EDT) Pathologist [facility] TROPONIN I HIGH SENSITIVITY 6.6 <3.5 - 35.0 ng/L [facility] Comment:The [place] high sens itivity Troponin-I results should beused in conjunction with other diagnostic information suchas ECG, clinical observations and information, and patientsymptoms to aid in the diagnosis of DC. 08/10/2025 2:23 PM EDT 08/10/2025 2:26 PM EDT Generic External Data Provider LAB BLOOD ORDERAB LES Final Result [facility] [address] [place] [phone] * Drug Monitoring, Panel 1, Screen, Urine (08/10/2025 1:49 PM EDT) [facility] Opiate Screen Urine Not Detected Not Detect [facility] Comment:Opiate cut-off is 30 0 ng/mL.Positive results are unconfirmed and should not be used fornon-medical purposes. Barbiturates, Urine Not Detected Not Detect [facility] Comment:Barbiturate cut-off is 200 ng/mL.Positive results are unconfirmed and should not be used fornon-medical purposes. Phencyclidine Screen Urine Not Detected Not Detect [facility] Comment:Phencyclidine cut-of f is 25 ng/mL.Positive results are unconfirmed and should not be used fornon-medical purposes. Amphetamine Screen Urine Not Detected Not Detect [facility] Comment:Amphetamine cut-off is 1000 ng/mL.Positive results are unconfirmed and should not be used fornon-medical purposes. Benzodiazepines Screen Urine Not Detected Not Detect [facility] Comment:Benzodiazepine cut-o ff is 200 ng/mL.Positive results are unconfirmed and should not be used fornon-medical purposes. Cocaine Screen Urine Not Detected Not Detect [facility] Comment:Cocaine cut-off is 3 00 ng/mL.Positive results are unconfirmed and should not be used fornon-medical purposes. Cannabinoid Screen Urine Not Detected Not Detect [facility] Comment:Cannabinoid cut-off is 50 ng/mL.Positive results are unconfirmed and should not be used fornon-medical purposes. Methadone Screen, Urine Not Detected Not Detect ng/mL [facility] Comment:Methadone cut-off is 300 ng/mL.Positive results are unconfirmed and should not be used fornon-medical purposes. FENTANYL URINE Not Detected Not Detect [facility] Comment:Fentanyl cut-off is 1 ng/mL.Positive results are unconfirmed and should not be used fornon-medical purposes. Oxycodone Urine Screen Not Detected Not Detect ng/mL [facility] Comment:Oxycodone cut-off is 100 ng/mL.Positive results are unconfirmed and should not be used fornon-medical purposes. Buprenorphine Screen Not Detected Not Detect ng/mL [facility] Comment:Buprenorphine cut-of f is 5 ng/mL.Positive results are unconfirmed and should not be used fornon-medical purposes. 08/10/2025 1:49 PM EDT 08/10/2025 1:52 PM EDT us Generic External Data Provider LAB URINE ORDERAB LES Final Result [facility] [address] [place] [phone] [phone] * (ABNORMAL) Urinalysis, Complete, with Reflex to Culture (08/10/2025 1:49 PM EDT) Color Urine Yellow [facility] Appearance Urine Clear [facility] PH 5.0 5.0 - 9.0 [facility] Glucose Urine UA Negative Negative mg/dL [facility] Urine Blood Negative Negative [facility] Specific [place] - Urine 1.015 1.005 - 1.025 [facility] Urine Protein Trace Neg-Trace mg/dL [facility] Urine Ketones Trace Negative mg/dL [facility] Nitrite Urine Negative Negative [facility] Leukocyte Esterase Urine Small (1+)(A) Negative [facility] RBC Urine 0-2 0 - 2 /HPF [facility] Urine WBC 6-10(A) 0 - 5 /HPF [facility] Urine Squamous Epithelial Cell 0-2 0 - 2 /HPF [facility] Urine Bacteria None Seen None Seen [facility] Hyaline Casts, Urine 11-20 0 - 2 /LPF [facility] 08/10/2025 1:49 PM EDT 08/10/2025 1:52 PM EDT Narrative [facility] - 08/10/2025 2:09 PM EDT [id number], Catheterized us Generic External Data Provider LAB URINE ORDERAB LES Final Result Performing Organization Address City/State/[facility] Co de Phone Number [facility] [address] [place] [phone] * CT Abdomen Pelvis w/o Contrast (08/10/2025 1:05 PM EDT) Anatomical Region Laterality Modality Body, Pelvis, Abdomen Computed T omography 08/10/2025 1:05 PM EDT Narrative 08/10/2025 1:[address] [address] [address] Scan Report Signed Patient: Marin Valdez MR#: [id number] : 1950 Acct:[id number] Age/Sex: 74 / M ADM Date: 08/10/25 Loc: HO.ED Attending Dr: Ordering Physician: Jennifer Barahona Date of Service: 08/10/25 Procedure(s): CT abdomen pelvis wo IV con Accession Number(s): [id number] cc: Marleny Beebe MD; Jennifer Barahona Report Number: [id number]: Total DLP = 1129.00 mGy-cm Reason for [...] 08/10/25 1349 DD/ 1305 TD/TT: 08/10/25 1315 Speech Therapist Technician: Procedure Note Donotuseinterpreter, Image - 08/10/[address] [place] [address] [address] Scan Report Signed Patient: Royce Valdez#: [id number] : 1950cct:[id number] Age/Sex: 74 / MADM Date: 08/10/25 Loc: HO.ED Attending Dr: Ordering Physician: Jennifer Barahona Date of Service: 08/10/25 Procedure(s): CT abdomen pelvis wo IV con Accession Number(s): [id number] cc: Marleny Beebe MD; Jennifer Barahona Report Number: [id number]: Total DLP = 1129.00 mGy-cm Reason for [...] 08/10/25 1349 DD/ 1305 TD/TT: 08/10/25 1315 Speech Therapist Technician: [facility] External Provider IMG CT PROCEDURES Final Result * CT Head w/o Contrast (08/10/2025 1:05 PM EDT) Anatomical Region Laterality Modality Head, Neck Computed Tomogra phy 08/10/2025 1:05 PM EDT Narrative 08/10/2025 1:[address] [address] [address] Scan Report Signed Patient: Marin Valdez MR#: [id number] : 1950 Acct:[id number] Age/Sex: 74 / M ADM Date: 08/10/25 Loc: HO.ED Attending Dr: Ordering Physician: Jennifer Barahona Date of Service: 08/10/25 Procedure(s): CT head/brain wo IV con Accession Number(s): [id number] cc: Marleny Beebe MD; Jennifer Barahona Report Number: [id number]: Total DLP = 887.00 mGy-cm Reason for [...] 08/10/25 1342 DD/ 1305 TD/TT: 08/10/25 1315 Speech Therapist Technician: Procedure Note Donotuseinterpreter, Image - 08/10/[address] [place] [address] [address] Scan Report Signed Patient: Royce Valdez#: [id number] : 1950cct:[id number] Age/Sex: 74 / MADM Date: 08/10/25 Loc: HO.ED Attending Dr: Ordering Physician: Jennifer Barahona Date of Service: 08/10/25 Procedure(s): CT head/brain wo IV con Accession Number(s): [id number] cc: Marleny Beebe MD; Jennifer Barahona Report Number: [id number]: Total DLP = 887.00 mGy-cm Reason for [...] 08/10/25 1342 DD/ 1305 TD/TT: 08/10/25 1315 Speech Therapist Technician: [facility] External Provider IMG CT PROCEDURES Final Result * XR Chest 1 View (08/10/2025 12:38 PM EDT) Anatomical Region Laterality Modality Chest Radiographic Guillermina ging 08/10/2025 12:3 8 PM EDT Narrative 08/10/2025 12:59 PM EDT [place] [address] XRay Report Signed Patient: Marin Valdez MR#: [id number] : 1950 Acct:[id number] Age/Sex: 74 / M ADM Date: 08/10/25 Loc: HO.ED Attending Dr: Ordering Physician: Jennifer Barahona Date of Service: 08/10/25 Procedure(s): XR chest 1V Accession Number(s): [id number] cc: Marleny Beebe MD; Jennifer Barahona Reason [...] 08/10/25 1255 DD/ 1238 TD/TT: 08/10/25 1252 Speech Therapist Technician: Procedure Note Donotuseinterpreter, Image - 08/10/2025 [place] [address] XRay Report Signed Patient: Marin Valdez#: [id number] : 1950cct:[id number] Age/Sex: 74 / MADM Date: 08/10/25 Loc: .ED Attending Dr: Ordering Physician: Jennifer Barahona Date of Service: 08/10/25 Procedure(s): XR chest 1V Accession Number(s): [id number] cc: Marleny Beebe MD; Jennifer Baraohna Reason for Exam: dizzy EXAMINATION: XR CHEST [...] 08/10/25 1255 DD/ 1238 TD/TT: 08/10/25 1252 Speech Therapist Technician: [facility] External Provider IMG XR PROCEDURES Final Result * Lactic Acid (08/10/2025 12:22 PM EDT) Lactic Acid 1.7 0.5 - 2.0 mmol/L [facility] 08/10/2025 12:2 2 PM EDT 08/10/2025 12:29 PM EDT Generic External Data Provider LAB BLOOD ORDERAB LES Final Result Performing Organization Address [facility] Co de Phone Number [facility] [address] [place] [phone] * NT-proBNP (08/10/2025 11:06 AM EDT) NT-proBNP 180.3 <300 pg/mL [facility] Comment:Reference Range:Age Group (years) NT-proBNP (pg/ml) InterpretationAll <300 Negative: HF unlikelyFor patients presenting to the ED with clinical suspicion ofnew onset or worsening HF, see below:18 to <50 >299.9 to <450.0 Grayzone: [id number] to 75 >299.9 to <900.0 other causes of>75 >299.9 to <1800.0 NT-proBNP majytgcdq26 to <50 >449.9 Positive: HF kndvie14-20 >899.9>75 >1799.9Note: Elevated NT-proBNP levels should be interpreted inthe context of other clinical information. 08/10/2025 11:0 6 AM EDT 08/10/2025 11:13 AM EDT Generic External Data Provider LAB BLOOD ORDERAB LES Final Result Performing Organization Address City/[facility]/ZIP Co de Phone Number [facility] [address] [place] [phone] * Creatine Kinase, Total (08/10/2025 11:06 AM EDT) Creatine Kinase Total 109 38 - 174 U/L [facility] 08/10/2025 11:0 6 AM EDT 08/10/2025 11:12 AM EDT us Generic External Data Provider LAB BLOOD ORDERAB LES Final Result Performing Organization Address [facility] Co de Phone Number [facility] [address] [place] [phone] * High Sensitivity Troponin I (08/10/2025 11:06 AM EDT) Pathologist [facility] TROPONIN I HIGH SENSITIVITY 10.1 <3.5 - 35.0 ng/L [facility] Comment:The [place] high sens itivity Troponin-I results should beused in conjunction with other diagnostic information suchas ECG, clinical observations and information, and patientsymptoms to aid in the diagnosis of DC. 08/10/2025 11:0 6 AM EDT 08/10/2025 11:13 AM EDT us Generic External Data Provider LAB BLOOD ORDERAB LES Final Result Performing Organization Address [facility] de Phone Number [facility] [address] [place] [phone] * (ABNORMAL) Magnesium (08/10/2025 11:06 AM EDT) Magnesium 1.5(L) 1.6 - 2.6 mg/dL [facility] 08/10/2025 11:0 6 AM EDT 08/10/2025 11:12 AM EDT Generic External Data Provider LAB BLOOD ORDERAB LES Final Result Performing Organization Address [facility] Co de Phone Number [facility] [address] [place] [phone] * (ABNORMAL) Basic Metabolic Panel (08/10/2025 11:06 AM EDT) Sodium 133(L) 135 - 145 mmol/L [facility] Potassium 4.1 3.3 - 5.1 mmol/L [facility] Chloride 100 96 - 108 mmol/L [facility] Carbon Dioxide 22 22 - 29 mmol/L [facility] Anion Gap 15 12 - 20 [facility] Urea Nitrogen (BUN) 70(H) 9 - 16 mg/dL [facility] Creatinine, Serum 3.91(H) 0.5 - 1.4 mg/dL [facility] Creatinine Clr Calc Pharmacy 22.3 [facility] Comment:eGFR (calculated fro m the MDRD study equation) and eCrCl(calculated from the Cockcroft-Gault equation) are based ondifferent parameters and may not yield comparable results.If eCrCl result is absurd, please check patient'sheight/weight. Estimated Glomerular Filt Rate 15 [facility] Comment:Chronic Kidney Disea se: Estimated GFR < 60 mL/min/1.95a2Mezkal Kidney Disease: Estimated GFR < 15 mL/min/1.73m2 Glucose 148(H) 60 - 115 mg/dL [facility] Calcium 7.9(L) 8.4 - 10.2 mg/dL [facility] 08/10/2025 11:0 6 AM EDT 08/10/2025 11:12 AM EDT us Generic External Data Provider LAB BLOOD ORDERAB LES Final Result [facility] [address] [place] [phone] * Hepatic Function Panel (08/10/2025 11:06 AM EDT) Bilirubin, Total 0.4 0.0 - 1.0 mg/dL [facility] Bilirubin, Direct 0.1 0.0 - 0.5 mg/dL [facility] Aspartate Amino Transferase 21 5 - 37 U/L [facility] Alanine Aminotransferase 19 0 - 40 U/L [facility] Total Protein 6.7 6.5 - 8.0 g/dL [facility] Albumin Level 3.8 3.5 - 5.0 g/dL [facility] Alkaline Phosphatase 67 39 - 117 U/L [facility] 08/10/2025 11:0 6 AM EDT 08/10/2025 11:12 AM EDT us Generic External Data Provider LAB BLOOD ORDERAB LES Final Result [facility] [address] [place] [phone] * (ABNORMAL) CBC auto differential (08/10/2025 11:06 AM EDT) White Blood Count 12.7(H) 4.8 - 10.8 X10*3/uL [facility] Red Blood Count 3.83(L) 4.60 - 5.80 X10*6/uL [facility] Hemoglobin 11.2(L) 14.0 - 18.0 g/dl [facility] Hematocrit 33.2(L) 42.0 - 52.0 % [facility] Mean Corpuscular Volume 86.7 80.0 - 98.0 fL [facility] Mean Corpuscular Hemoglobin 29.2 27.0 - 33.0 pg [facility] Mean Corpuscular HGB Conc 33.7 31.0 - 36.0 g/dl [facility] Red Cell Distribution Width 13.9 11.0 - 16.0 % [facility] Platelet Count 233 160 - 400 X10*3/uL [facility] Mean Platelet Volume 10.5 9.4 - 12.4 fL [facility] Neutrophils Percent Auto 61.7 45 - 73 % [facility] Imm Gran Pct Auto 0.9(H) 0.0 - 0.4 % [facility] Lymphocytes Percent Auto 26.9 20 - 40 % [facility] Monocytes Percent Auto 9.3 2 - 11 % [facility] Eosinophils Percent Auto 1.0 0 - 4 % [facility] Basophils Percent Auto 0.2 0 - 2 % [facility] NRBC Pct Auto 0.0 0.0 - 0.2 /100WBC [facility] Neutrophils Absolute Auto 7.8 2.0 - 8.3 x10*3/uL [facility] Imm Gran Abs Auto 0.11(H) 0.00 - 0.03 X10*3/uL [facility] Lymphocytes Absolute Auto 3.4 1.2 - 4.9 X10*3/uL [facility] Monocytes Absolute Auto 1.2 0.1 - 1.2 X10*3/uL [facility] Eosinophils Absolute Auto 0.1 0.0 - 0.4 X10*3/uL [facility] Basophils Absolute Auto 0.0 0.0 - 0.2 X10*3/uL [facility] NRBC Abs Auto 0.000 0.0 - 0.012 X10*3/uL [facility] 08/10/2025 11:0 6 AM EDT 08/10/2025 11:12 AM EDT us Generic External Data Provider LAB BLOOD ORDERAB LES Final Result Performing Organization Address City/[facility] Co de Phone Number [facility] [address] [place] [phone] * HOLD LT BLUE - POSSIBLE COAG (08/10/2025 11:05 AM EDT) Hold Lt Blue - Possible Coag SEE NOTE [facility] Comment:Specimen will be hel d untested for 4 hours. Call Hematologyif testing is desired. 08/10/2025 11:0 5 AM EDT 08/10/2025 11:16 AM EDT us Generic External Data Provider LAB BLOOD ORDERAB LES Final Result [facility] [address] [place] [phone] documented in this encounter Visit Diagnoses Diagnosis Benign essential hypertension- Primary Essential hypertension, benign documented in this encounter Care Teams Disaster Response Director Relationship Specialty Start Date End Date Marleny Beebe MD [address] [place] [address] PCP - General Family Medicine 12/25/16 Kavin Tan, NahumD [address] [place] [phone] Pharmacist Pharmacy 07/13/25 documented as of this encounter
--- OUTSIDE RECORDS SUMMARY | 2025-08-22 17:42 | XMS_ITS | Encounter Summary ---
Author Organization [employer] Address [address] [facility] 7t [place] [address] Care Team Providers Care Tipple Supervisor Name Role Phone Marleny Beebe MD Primary Care Provider + Kavin Tan PharmD Unavailable [phone] Reason for Visit * Reason Onset Date Comments HDF appt 08/17/2025 Encounter Details Date Type Department Care Team ([facility] st Contact Info) Description 08/17/2025 Telephone [facility] [address] [place] [address] Marleny Beebe MD [address] [place], [place] [phone] HDF appt Social History Tobacco Use Types [...] 12:32 PM EST TC placed to patient [phone] to schedule HDF. Patient did not answer, RN left VM requesting CBto red team nurses. TC placed to [phone], spoke to Jadon (on HIPAA) to schedule HDF. RN scheduled HDF for 08/22/25 at 2:30pm d/t patient needing to repeat BMP in 1 week, RN also kept appointment for 08/31/25 for PE. Jadon verbalized understanding and agreed to HDF asppt. ----- Message from Marleny Beebe MD sent at 08/15/2025 9:00 AM EST ----- See addendum to [facility] discharge, needs HDF documented in this encounter Plan of Treatment Upcoming Encounters Date Type Department Care Team (Late st Contact Info) Description 08/31/2025 10:30 AM EST Office Visit [facility] [address] [place] [phone] Marleny Beebe MD [address] [place] [address] 09/07/2025 9:00 AM EST Medication Management [facility] [address] [place] [address] [phone] Kavin Tan, PharmD [address] [place] [phone] documented as of this encounter Visit Diagnoses Not on filedocumented in this encounter Care Teams Tipple Supervisor Relationship Specialty Start Date End Date Marleny Beebe MD [address] [place] [address] [phone] PCP - General Family Medicine 12/25/16 Kavin Tan, PharmD [address] [place] [address] [phone] Pharmacist Pharmacy 07/13/25 documented as of this encounter
--- OUTSIDE RECORDS SUMMARY | 2025-08-22 17:42 | XMS_ITS | Encounter Summary ---
Author Organization [employer] Address [address] [place] [address] 7t [place] [address] Care Team Providers Care Bottle Sorter Name Role Phone Marleny Beebe MD Primary Care Provider + Kavin Tan PharmD Unavailable [phone] Reason for Visit * Reason Comments Med Refill Encounter Details Date Type Department Care Team (Late st Contact Info) Description 03/06/2023 Refill [facility] [address] [place] [address] [phone] Marleny Beebe MD [address] [place] [address] [phone] Primary hypertension; Controlled type 2 diabetes mellitus with hyperglycemia, with long-term current use of insulin ([facility]) Social History Tobacco Use Types Packs/Day Years [...] Description 08/31/2025 10:30 AM EST Office Visit [facility] [address] [place] [address] [phone] Marleny Beebe MD [address] [place] [address] [phone] 09/07/2025 9:00 AM EST Medication Management [facility] [address] [place] [address] [phone] Kavin Tan, PharmD [address] [place] [phone] documented as of this encounter Visit Diagnoses Diagnosis Primary hypertension Unspecified essential hypertension Controlled type 2 diabetes mellitus with hyperglycemia, with long-term current use of insulin (HCC) documented in this encounter Care Teams Bottle Sorter Relationship Specialty Start Date End Date Marleny Beebe MD [address] [place] [address] [phone] PCP - General Family Medicine 12/25/16 Kavin Tan, PharmD [address] [place] [address] [phone] Pharmacist Pharmacy 07/13/25 documented as of this encounter
--- OUTSIDE RECORDS SUMMARY | 2025-08-22 17:43 | XMS_ITS | Encounter Summary ---
Author Organization [employer] Address [address] [place] [address] 7t [place] [address] Care Team Providers Care Wood Veneer Taper Name Role Phone Marleny Beebe MD Primary Care Provider + Kavin Tan PharmD Unavailable [phone] Reason for Visit * Reason Comments Med Refill Encounter Details Date Type Department Care Team (Late st Contact Info) Description 09/18/2022 Refill [facility] [address] [place] [address] [phone] Marleny Beebe MD [address] [place] [address] [phone] Social History Tobacco Use Types Packs/Day Years [...] Visit [facility] [address] [place] [address] [phone] Marleny Beebe MD [address] [place] [address] [phone] 09/07/2025 9:00 AM EST Medication Management [facility] [address] [place] [address] [phone] Kavin Tan, PharmD [address] [place] [address] documented as of this encounter Visit Diagnoses Not on filedocumented in this encounter Care Teams Wood Veneer Taper Relationship Specialty Start Date End Date Marleny Beebe MD [address] [place] [address] [phone] PCP - General Family Medicine 12/25/16 Kavin Tan, Ana [address] [place] [address] [phone] Pharmacist Pharmacy 07/13/25 documented as of this encounter
--- OUTSIDE RECORDS SUMMARY | 2025-08-22 17:43 | XMS_ITS | Encounter Summary ---
Author Organization [employer] Address [address] 7t [place] [address] Care Team Providers Care Table Games Dual Rate Supervisor Name Role Phone Marleny Beebe MD Primary Care Provider + Kavin Tan PharmD Unavailable [phone] Encounter Details Date Type Department Care Team (Latest Contact Info) Description 08/22/2025 Travel Social History Tobacco Use Types Packs/Day [...] Description 08/31/2025 10:30 AM EST Office Visit [address] [address] Marleny Beebe MD [address] [place] [address] [phone] 09/07/2025 9:00 AM EST Medication Management [address] [address] Kavin Tan, NahumD [address] [place] [phone] documented as of this encounter Visit Diagnoses Not on filedocumented in this encounter Care Teams Table Games Dual Rate Supervisor Relationship Specialty Start Date End Date Marleny Beebe MD [address] [place] [address] [phone] PCP - General Family Medicine 12/25/16 Kavin Tan, PharmD [address] [place] [address] [phone] Pharmacist Pharmacy 07/13/25 documented as of this encounter
--- OUTSIDE RECORDS SUMMARY | 2025-08-22 17:43 | XMS_ITS | Encounter Summary ---
Author Organization [employer] Address [address] [facility] 7t [place] [address] Care Team Providers Care Implementation Director Name Role Phone Marleny Beebe MD Primary Care Provider + Kavin Tan PharmD Unavailable [phone] Reason for Visit * Reason Comments Med Refill Encounter Details Date Type Department Care Team ([facility] st Contact Info) Description 08/19/2025 Refill [facility] [address] [place], [place] [phone] Marleny Beebe MD [address] [place], [place] [phone] Diabetic polyneuropathy associated with type 2 diabetes mellitus (HCC) Social History Tobacco Use Types Packs/Day [...] Description 08/31/2025 10:30 AM EST Office Visit [facility] [address] [place] [phone] Marleny Beebe MD [address] [place] [phone] 09/07/2025 9:00 AM EST Medication Management [address] [address] Kavin Tan, Ana [address] [place] [phone] documented as of this encounter Visit Diagnoses Diagnosis Diabetic polyneuropathy associated with type 2 diabetes mellitus (HCC) documented in this encounter Care Teams Implementation Director Relationship Specialty Start Date End Date Marleny Beebe MD [address] [place] [address] PCP - General Family Medicine 12/25/16 Kavin Tan, PharmD [address] [place] [address] [phone] Pharmacist Pharmacy 07/13/25 documented as of this encounter
--- OUTSIDE RECORDS SUMMARY | 2025-08-22 17:43 | XMS_ITS | Encounter Summary ---
Author Organization [employer] Address [address] [facility] 7t [place] [address] Care Team Providers Care [employer] Caretaker Name Role Phone Marleny Beebe MD Primary Care Provider + Kavin Tan PharmD Unavailable [phone] Reason for Visit * Reason Onset Date Comments FYI 08/18/2025 Encounter Details Date Type Department Care Team ([facility] st Contact Info) Description 08/18/2025 Telephone [facility] [address] [place], [place] [phone] Marleny Beebe MD [address] [place], [place] [phone] FYI Social History Tobacco Use Types Packs/Day Years [...] encounter Miscellaneous Notes * Telephone Encounter - Alla Fairchild RN - 08/18/2025 2:18 PM EST FYI for HDF appointment 08/22/25 * Telephone Encounter - Shen Remy - 08/18/2025 2:05 PM EST TC from E[facility] with [facility] stating pt has not been making himself available for nurse visits so they will have to discontinue shelter services. Pt will still have PT services. Please contact [facility] at [phone]. documented in this encounter Plan of Treatment Upcoming Encounters Date Type Department Care Team (Late st Contact Info) Description 08/31/2025 10:30 AM EST Office Visit [facility] [address] [place] [phone] Marleny Beebe MD [address] [place] [address] 09/07/2025 9:00 AM EST Medication Management [facility] [address] [place] [phone] Kavin Tan, PharmD [address] [place] [address] documented as of this encounter Visit Diagnoses Not on filedocumented in this encounter Care Teams [employer] Caretaker Relationship Specialty Start Date End Date Marleny Beebe MD [address] [place] [phone] PCP - General Family Medicine 12/25/16 Kavin Tan, NahumD [address] [place] [address] [phone] Pharmacist Pharmacy 07/13/25 documented as of this encounter
[2025-08-22 18:30] LABS: Alanine Aminotransferase 33 U/L (0-40); Albumin Level 4.6 g/dL (3.5-5.0); Alkaline Phosphatase 70 U/L (39-117); Anion Gap 14 (12-20); Aspartate Amino Transferase 30 U/L (5-37); Blood Urea Nitrogen 33 mg/dL (9-16); Calcium 9.3 mg/dL (8.4-10.2); Carbon Dioxide 24 mmol/L (22-29); Chloride 105 mmol/L (96-108); Cholesterol 129 mg/dL (<200); Estimated Glomerular Filt Rate > 60; HDL Cholesterol 40 mg/dL (>40); Potassium 5.3 mmol/L (3.3-5.1); Sodium 138 mmol/L (135-145); Total Protein 7.8 g/dL (6.5-8.0); Triglycerides 83 mg/dL (<150)
[2025-08-22 18:40] LABS: Microalbum/Creatinine Ratio Ur 6.7 ug/mg cr (<30)
[2025-08-22 18:52] LABS: Hemoglobin 12.5 g/dl (14.0-18.0); NRBC Abs Auto 0.000 X10*3/uL (0.0-0.012); NRBC Pct Auto 0.0 /100WBC (0.0-0.2); PLT CLUMP 1; SCAN SMEAR FLAG 1
[2025-08-22 18:54] LABS: Hematocrit 39.3 % (42.0-52.0); Imm Gran Abs Auto 0.05 X10*3/uL (0.00-0.03); Imm Gran Pct Auto 0.5 % (0.0-0.4); Lymphocytes Absolute Auto 3.0 X10*3/uL (1.2-4.9); MANUAL DIFF FLAG SCAN; Mean Corpuscular HGB Conc 31.8 g/dl (31.0-36.0); Mean Corpuscular Hemoglobin 29.1 pg (27.0-33.0); Mean Corpuscular Volume 91.6 fL (80.0-98.0); Red Blood Count 4.29 X10*6/uL (4.60-5.80)
[2025-08-22 18:59] LABS: White Blood Count 9.6 X10*3/uL (4.8-10.8)
[2025-08-22 19:06] LABS: Vitamin B12 448 pg/mL (200-900)
[2025-08-22 19:21] LABS: Platelet Count 301 X10*3/uL (160-400)
== END 2025-08-22 15:39 | disposition home or self-care (01) ==
LOC: HO.HHCL 15:38
PROVIDERS: PCP Internal Medicine; Visit Provider Internal Medicine
DX: E11.65 Type 2 diabetes mellitus with hyperglycemia (principal); N10 Acute pyelonephritis; N17.9 Acute kidney failure, unspecified; Z79.4 Long term (current) use of insulin
CPT/HCPCS: 36415; 80048; 80061; 80076; 82043; 82570; 82607; 85025

== ENCOUNTER 2025-08-29 10:21 | Outpatient (REF) | payer OTHER, SELFPAY ==
[2025-08-29 12:43] LABS: Potassium 4.2 mmol/L (3.3-5.1)
--- OUTSIDE RECORDS SUMMARY | 2025-08-29 21:22 | XMS_ITS | Clinical Summary ---
Author Organization [facility] Address [address] [place] [address] Care Team Providers Care Pss Delivery Professional Name Role Phone Saad Cesar MD Primary Care Provider Immunizations Immunization Administration Dates Next Due Moderna SARS-CoV-2 COVID-19, mRNA, LNP-S, preservative free 11/02/2021,02/08/2021,01/11/2021 Surgical History Surgery Date Site/Laterality Comments KNEE ARTHROSCOPY PROCEDURE: [place] ARTHROSCOPY KNEE DIAGNOSTIC W/WO SYNOVIAL BX SPX; COMMENT: had multiple in debbie past OTHER SURGICAL HISTORY 2012 PROCEDURE: [place] UNLISTED PX ABDOMEN MUSCULOSKELETAL SYSTEM; COMMENT: for ischemic colitis and gangrenous colitis OTHER SURGICAL HISTORY PROCEDURE: [place] UNLISTED PROCEDURE SPINE; COMMENT: for bulged disc CIRCUMCISION, PRIMARY PROCEDURE: HISTORICAL CIRCUMCISION OTHER SURGICAL HISTORY 11/26 PROCEDURE: [place] REVJ COLOSTOMY SMPL RLS SUPFC SCAR SPX Medical History Medical History Date Comments Gout DX:Gout Hypertension DX:Hypertension Type 2 diabetes mellitus wit h diabetic nephropathy ([facility] V24, [facility] V28) DX: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 (HCC) Left leg DVT ([facility], [facility]) DX:Left leg DVT (HCC) Leg edema DX:Leg edema Osteoarthritis DX:Osteoarthriti s Arthritis, lumbar spine DX:Arthr itis, lumbar spine; COMMENT: recieved cortisone injections, had surgery Ischemic colon ([facility] V24) DX: Ischemic colon (HCC) Acute vascular insufficiency of intestine ([facility] V24) DX:Acute vascular insufficie ncy of intestine ([facility]); COMMENT: s/p surgery COPD (chronic obstructive pu lmonary disease) ([facility], [facility] V28) DX:COPD (chronic o bstructive pulmonary disease) ([facility]); COMMENT: emphysema Obstructive sleep apnea DX:Obstr uctive sleep apnea; COMMENT: on CPAP at night Depression, major DX:Depression, major Ileostomy in place ([facility], [facility] V28) 09/25/2012 DX:Ileostomy in place ([facility]) Osteoarthritis DX:Osteoarthriti s Type II or unspecified type diabetes mellitus with unspecified complication, not stated as uncontrolled DX:Type II or unspecified ty pe diabetes mellitus with unspecified complication, not stated as uncontrolled CKD (chronic kidney disease) stage 3, GFR 30-59 ml/min ([facility], [facility] V28) 05/03/2013 DX:CKD (chronic kidney disea se) stage 3, GFR 30-59 ml/min ([facility]) COPD (chronic obstructive pu lmonary disease) ([facility] V24, [facility] V28) DX:COPD (chronic o bstructive pulmonary disease) ([facility]) Incisional hernia 02/17/2014 DX:Incisional hernia Hyperlipidemia [...] age to complete this topic Care Teams Pss Delivery Professional Relationship Specialty Start Date End Date Saad Cesar MD PCP - General Internal Medicine 09/16/12
== END 2025-08-29 10:22 | disposition home or self-care (01) ==
LOC: HO.HHCL 10:21
PROVIDERS: PCP Internal Medicine; Visit Provider Internal Medicine
DX: N17.9 Acute kidney failure, unspecified (principal)
CPT/HCPCS: 36415; 84132

== ENCOUNTER 2025-10-03 08:44 | Outpatient (REF) | payer OTHER, SELFPAY ==
[2025-10-03 13:55] LABS: MANUAL DIFF FLAG NO
[2025-10-03 14:15] LABS: Hematocrit 37.2 % (42.0-52.0); Hemoglobin 12.2 g/dl (14.0-18.0); Imm Gran Abs Auto 0.05 X10*3/uL (0.00-0.03); Imm Gran Pct Auto 0.6 % (0.0-0.4); Lymphocytes Absolute Auto 3.7 X10*3/uL (1.2-4.9); Mean Corpuscular HGB Conc 32.8 g/dl (31.0-36.0); Mean Corpuscular Hemoglobin 29.3 pg (27.0-33.0); Mean Corpuscular Volume 89.2 fL (80.0-98.0); NRBC Abs Auto 0.000 X10*3/uL (0.0-0.012); NRBC Pct Auto 0.0 /100WBC (0.0-0.2); Platelet Count 267 X10*3/uL (160-400); Red Blood Count 4.17 X10*6/uL (4.60-5.80); White Blood Count 9.0 X10*3/uL (4.8-10.8)
== END 2025-10-03 08:45 | disposition home or self-care (01) ==
LOC: HO.HKASLDS 08:44
PROVIDERS: PCP Internal Medicine; Visit Provider Student in an Organized Health Care Education/Training Program
DX: L03.032 Cellulitis of left toe (principal); E11.618 Type 2 diabetes mellitus with other diabetic arthropathy; Z79.4 Long term (current) use of insulin; M86.9 Osteomyelitis, unspecified; L85.3 Xerosis cutis
CPT/HCPCS: 36415; 83036; 85025; 99202

== ENCOUNTER 2025-10-03 08:44 | Outpatient (AMB) | payer OTHER, SELFPAY ==
--- OUTSIDE RECORDS SUMMARY | 2025-10-03 09:08 | XMS_ITS | Encounter Summary ---
Author Organization [employer] Address [address] [facility] 7t [place] [address] Care Team Providers Care Pattern Room Attendant Name Role Phone Marleny Beebe MD Primary Care Provider + Kavin Tan PharmD Unavailable [phone] Encounter Details Date Type Department Care Team ([facility] st Contact Info) Description 09/02/2025 Telephone [facility] [address] [place], [place] [phone] Marleny Beebe MD [address] [place], [place] [phone] Social History Tobacco Use Types Packs/Day Years [...] Care Team (Late st Contact Info) Description 11/01/2025 11:45 AM EST Office Visit [facility] [address] [place] [phone] Marleny Beebe MD [address] [place] [address] documented as of this encounter Goals Goal Patient Goal Type Associated Problems Recent Progress Patient-Stated? Author Help patients manage their type 2 diabetes Care Plan Help patients manage their type 2 diabetes Alma Kidd Weekly blood pressure task Care Plan Weekly blood pressure task No Alma Espinoza Help patients manage their type 2 diabetes Care Plan Help patients manage their type 2 diabetes No Alma Espinoza Patient has chronic kidney disease Care Plan Patient has chronic kidney disease No Alma Espinoza Help patients manage their type 2 diabetes Care Plan Help patients manage their type 2 diabetes No Alma Espinoza Patient has diabetic neuropathy Care Plan Patient has diabetic neuropathy Alma Kidd Weekly blood pressure task Care Plan Weekly blood pressure task No Alma Espinoza Weekly blood pressure task Care Plan Weekly blood pressure task No Alma Espinoza Patient has chronic kidney disease Care Plan Patient has chronic kidney disease No Alma Espinoza Patient has chronic kidney disease Care Plan Patient has chronic kidney disease No Alma Espinoza Patient has diabetic neuropathy Care Plan Patient has diabetic neuropathy No Alma Espinoza Patient has diabetic neuropathy Care Plan Patient has diabetic neuropathy No Alma Espinoza Weekly blood pressure task Care Plan Weekly blood pressure task No Marleny Beebe MD Weekly blood pressure task Care Plan Weekly blood pressure task Marleny Rossi MD Weekly blood pressure task Care Plan Weekly blood pressure task No Marleny Beebe MD Patient has chronic kidney disease Care Plan Patient has chronic kidney disease Marleny Rossi MD Patient has chronic kidney disease Care Plan Patient has chronic kidney disease Marleny Rossi MD Patient has chronic kidney disease Care Plan Patient has chronic kidney disease No Marleny Beebe MD Patient has diabetic neuropathy Care Plan Patient has diabetic neuropathy No Marleny Beebe MD Patient has diabetic neuropathy Care Plan Patient has diabetic neuropathy No Marleny Beebe MD Patient has diabetic neuropathy Care Plan Patient has diabetic neuropathy Marleny Rossi MD Weekly blood pressure task Care Plan Weekly blood pressure task Marleny Rossi MD Weekly blood pressure task Care Plan Weekly blood pressure task Marleny Rossi MD Weekly blood pressure task Care Plan Weekly blood pressure task Marleny Rossi MD Patient has chronic kidney disease Care Plan Patient has chronic kidney disease Marleny Rossi MD Patient has chronic kidney disease Care Plan Patient has chronic kidney disease Marleny Rossi MD Patient has chronic kidney disease Care Plan Patient has chronic kidney disease Marleny Rossi MD Patient has diabetic neuropathy Care Plan Patient has diabetic neuropathy Marleny Rossi MD Patient has diabetic neuropathy Care Plan Patient has diabetic neuropathy No Marleny Beebe MD Patient has diabetic neuropathy Care Plan Patient has diabetic neuropathy No Marleny Beebe MD Weekly blood pressure task Care Plan Weekly blood pressure task No Natasha Gomez MA Weekly blood pressure task Care Plan Weekly blood pressure task No Natsaha Gomez MA Weekly blood pressure task Care Plan Weekly blood pressure task No Natasha Gomez MA Patient has chronic kidney disease Care Plan Patient has chronic kidney disease No Natasha Gomez [place] Patient has chronic kidney disease Care Plan Patient has chronic kidney disease No Natasha Gomez [place] Patient has chronic kidney disease Care Plan Patient has chronic kidney disease No Natasha Gomez MA Patient has diabetic neuropathy Care Plan Patient has diabetic neuropathy No Natasha Gomez [place] Patient has diabetic neuropathy Care Plan Patient has diabetic neuropathy No GomezNatasha cruz, [place] Patient has diabetic neuropathy Care Plan Patient has diabetic neuropathy No GomezNatasha, [place] Weekly blood pressure task Care Plan Weekly blood pressure task No Sharpe, Tisha, MA Weekly blood pressure task Care Plan Weekly blood pressure task No Sharpe, Tisha, MA Weekly blood pressure task Care Plan Weekly blood pressure task No Sharpe, Tisha, MA Patient has chronic kidney disease Care Plan Patient has chronic kidney disease No Sharpe, Tisha, [place] Patient has chronic kidney disease Care Plan Patient has chronic kidney disease No Sharpe, Tisha, [place] Patient has chronic kidney disease Care Plan Patient has chronic kidney disease No Sharpe, Tisha, [place] Patient has diabetic neuropathy Care Plan Patient has diabetic neuropathy No Sharpe, Tisha, [place] Patient has diabetic neuropathy Care Plan Patient has diabetic neuropathy No Sharpe, Tisha, [place] Patient has diabetic neuropathy Care Plan Patient has diabetic neuropathy No Sharpe, Tisha, [place] Weekly blood pressure task Care Plan Weekly blood pressure task No Wu, Dejah, PharmD Weekly blood pressure task Care Plan Weekly blood pressure task No Wu, Dejah, PharmD Weekly blood pressure task Care Plan Weekly blood pressure task No WuVaniaDejah, PharmD Patient has chronic kidney disease Care Plan Patient has chronic kidney disease No Wu, Dejah, PharmD Patient has chronic kidney disease Care Plan Patient has chronic kidney disease No WuVaniaDejah, PharmD Patient has chronic kidney disease Care Plan Patient has chronic kidney disease No WuVaniaDejah, PharmD Patient has diabetic neuropathy Care Plan Patient has diabetic neuropathy No Wu, Dejah, PharmD Patient has diabetic neuropathy Care Plan Patient has diabetic neuropathy No Wu, Dejah, PharmD Patient has diabetic neuropathy Care Plan Patient has diabetic neuropathy No Wu, Dejah, PharmD Weekly blood pressure task Care Plan Weekly blood pressure task No WuVaniaDejah, PharmD Weekly blood pressure task Care Plan Weekly blood pressure task No Wu Dejah, PharmD Weekly blood pressure task Care Plan Weekly blood pressure task No Wu, Dejah, PharmD Patient has chronic kidney disease Care Plan Patient has chronic kidney disease No Wu, Dejah, PharmD Patient has chronic kidney disease Care Plan Patient has chronic kidney disease No Wu, Dejah, PharmD Patient has chronic kidney disease Care Plan Patient has chronic kidney disease No Dejah Wu PharmD Patient has diabetic neuropathy Care Plan Patient has diabetic neuropathy No Dejah Wu PharmD Patient has diabetic neuropathy Care Plan Patient has diabetic neuropathy No Dejah Wu PharmD Patient has diabetic neuropathy Care Plan Patient has diabetic neuropathy No Dejah Wu PharmD documented as of this encounter Visit Diagnoses Not on filedocumented in this encounter Additional Health Concerns Active Problems Noted Date Diagnosed Date Help patients manage their type 2 diabetes 08/24 Weekly blood pressure task 08/24/2025 Help patients manage their type 2 diabetes 08/24 Patient has chronic kidney disease 08/24/2025 Help patients manage their type 2 diabetes 08/24 Patient has diabetic neuropathy 08/24/2025 Weekly blood pressure task 08/24/2025 Weekly blood pressure task 08/24/2025 Patient has chronic kidney disease 08/24/2025 Patient has chronic kidney disease 08/24/2025 Patient has diabetic neuropathy 08/24/2025 Patient has diabetic neuropathy 08/24/2025 Weekly blood pressure task 08/25/2025 Weekly blood pressure task 08/25/2025 Weekly blood pressure task 08/25/2025 Patient has chronic kidney disease 08/25/2025 Patient has chronic kidney disease 08/25/2025 Patient has chronic kidney disease 08/25/2025 Patient has diabetic neuropathy 08/25/2025 Patient has diabetic neuropathy 08/25/2025 Patient has diabetic neuropathy 08/25/2025 Weekly blood pressure task 08/25/2025 Weekly blood pressure task 08/25/2025 Weekly blood pressure task 08/25/2025 Patient has chronic kidney disease 08/25/2025 Patient has chronic kidney disease 08/25/2025 Patient has chronic kidney disease 08/25/2025 Patient has diabetic neuropathy 08/25/2025 Patient has diabetic neuropathy 08/25/2025 Patient has diabetic neuropathy 08/25/2025 Weekly blood pressure task 08/30/2025 Weekly blood pressure task 08/30/2025 Weekly blood pressure task 08/30/2025 Patient has chronic kidney disease 08/30/2025 Patient has chronic kidney disease 08/30/2025 Patient has chronic kidney disease 08/30/2025 Patient has diabetic neuropathy 08/30/2025 Patient has diabetic neuropathy 08/30/2025 Patient has diabetic neuropathy 08/30/2025 Weekly blood pressure task 08/31/2025 Weekly blood pressure task 08/31/2025 Weekly blood pressure task 08/31/2025 Patient has chronic kidney disease 08/31/2025 Patient has chronic kidney disease 08/31/2025 Patient has chronic kidney disease 08/31/2025 Patient has diabetic neuropathy 08/31/2025 Patient has diabetic neuropathy 08/31/2025 Patient has diabetic neuropathy 08/31/2025 Weekly blood pressure task 09/02/2025 Weekly blood pressure task 09/02/2025 Weekly blood pressure task 09/02/2025 Patient has chronic kidney disease 09/02/2025 Patient has chronic kidney disease 09/02/2025 Patient has chronic kidney disease 09/02/2025 Patient has diabetic neuropathy 09/02/2025 Patient has diabetic neuropathy 09/02/2025 Patient has diabetic neuropathy 09/02/2025 Weekly blood pressure task 09/02/2025 Weekly blood pressure task 09/02/2025 Weekly blood pressure task 09/02/2025 Patient has chronic kidney disease 09/02/2025 Patient has chronic kidney disease 09/02/2025 Patient has chronic kidney disease 09/02/2025 Patient has diabetic neuropathy 09/02/2025 Patient has diabetic neuropathy 09/02/2025 Patient has diabetic neuropathy 09/02/2025 documented as of this encounter Care Teams Pattern Room Attendant Relationship Specialty Start Date End Date Marleny Beebe MD [address] [place] [address] PCP - General Family Medicine 12/25/16 Kavin Tan, Ana [address] [place] [address] Pharmacist Pharmacy 07/13/25 documented as of this encounter
--- OUTSIDE RECORDS SUMMARY | 2025-10-03 09:08 | XMS_ITS | Encounter Summary ---
Author Organization [employer] Address [address] [place] [address] Care Team Providers Care Security Operations Analyst Name Role Phone Marleny Beebe MD Primary Care Provider + Kavin Tan PharmD Unavailable [phone] Encounter Details Date Type Department Care Team (Late st Contact Info) Description 07/11/2025 Orders Only [facility] MEDICINE [address] [place] [address] Marleny Beebe MD [address] [place], [place] [phone] Benign essential hypertension (Primary Dx) Social History [...] Description 11/01/2025 11:45 AM EST Office Visit [facility] MEDICINE [address] [place] [address] Marleny Beebe MD [address] [place] [address] documented as of this encounter Procedures Procedure Name Priority Date/Time Associated Diagnosis Comments SLIDE REVIEW Routine 08/22/2025 3:44 PM EST Benign essential hypertension ALBUMIN, RANDOM URINE W/CREATININE Routine 08/22/2025 3:44 PM EST Benign essential hypertension VITAMIN B12 Routine 08/22/2025 3:44 PM EST Benign essential hypertension HEPATIC FUNCTION PANEL Routine 08/22/2025 3:44 PM EST Benign essential hypertension LIPID PANEL, STANDARD Routine 08/22/2025 3:44 PM EST Benign essential hypertension CT CERVICAL SPINE WO CONTRAST Routine 08/11/2025 [...] hypertension documented in this encounter Results * Slide Review (08/22/2025 3:44 PM EST) Slide Review VERIFIED [facility] 08/22/2025 3:44 PM EST 08/22/2025 6:05 PM EST us Marleny Beebe MD LAB BLOOD ORDERABLES Fin al Result Performing Organization Address [facility]/ZIP Co de Phone Number [facility] [address] [place] [phone] * Vitamin B12 (08/22/2025 3:44 PM EST) Vitamin B12 448 200 - 900 pg/mL [facility] Comment:NORMAL 200-900 PG/ML INDETERMINATE 160-199 PG/ML DEFICIENT < 160 PG/ML 08/22/2025 3:44 PM EST 08/22/2025 6:05 PM EST us Marleny Beebe MD LAB BLOOD ORDERABLES Fin al Result Performing Organization Address City/[facility]/ZIP Co de Phone Number [facility] [address] [place] [phone] * Albumin, Random Urine W/Creatinine (08/22/2025 3:44 PM EST) Creatinine, Urine 133.87 mg/dL [facility] Microalbumin Urine 9.0 mg/L [facility] Microalbum Creatinine Ratio Ur 6.7 <30 ug/mg cr [facility] Comment:Albumin/Creatinine R atio Reference Ranges: Normal: < 30 ug/mg creatinine Microalbuminuria: 30 - 300 ug/mg creatinineClinical Albuminuria: > 300 ug/mg creatinine 08/22/2025 3:44 PM EST 08/22/2025 6:02 PM EST Marleny Beebe MD LAB URINE ORDERABLES Fin al Result Performing Organization Address [facility] Co de Phone Number [facility] [address] [place] [phone] * (ABNORMAL) Lipid Panel, Standard (08/22/2025 3:44 PM EST) Triglycerides 83 <150 mg/dL [facility] Comment:Desirable Triglyceri de: less than 150 mg/dLBorderline High Triglyceride 150-199 mg/dLHigh Triglyceride: 200-499 mg/dLVery High Triglyceride: greater than or equal to 5OO mg/dL Cholesterol 129 <200 mg/dL [facility] Comment:Desirable Cholestero l: less than 200 mg/dLBorderline High Cholesterol: 200-239 mg/dLHigh Cholesterol: greater than 239 mg/dL LDL Cholesterol Calculated 73 <100 mg/dL [facility] Comment:Desirable LDL: less than 100 mg/dLNear Optimal/Above Optimal LDL: 110- 129 mg/dLBorderline High LDL: 130-159 mg/dLHigh LDL: 160-189 mg/dLVery High LDL: greater than or equal to 190 mg/dL HDL Cholesterol 40(L) >40 mg/dL [facility] Comment:Desirable HDL: great er than 40 mg/dL Note: This HDL assay may give artificially low results in patients with liver disease. 08/22/2025 3:44 PM EST 08/22/2025 6:05 PM EST Marleny Beebe MD LAB BLOOD ORDERABLES Fin al Result Performing Organization Address [facility] Co de Phone Number [facility] [address] [place] [phone] * Hepatic Function Panel (08/22/2025 3:44 PM EST) Bilirubin, Total 0.7 0.0 - 1.0 mg/dL [facility] Bilirubin, Direct 0.3 0.0 - 0.5 mg/dL [facility] Aspartate Amino Transferase 30 5 - 37 U/L [facility] Alanine Aminotransferase 33 0 - 40 U/L [facility] Total Protein 7.8 6.5 - 8.0 g/dL [facility] Albumin Level 4.6 3.5 - 5.0 g/dL [facility] Alkaline Phosphatase 70 39 - 117 U/L [facility] 08/22/2025 3:44 PM EST 08/22/2025 6:05 PM EST Marleny Beebe MD LAB BLOOD ORDERABLES Fin al Result Performing Organization Address City/State/[facility] Co de Phone Number [facility] [address] [place] [address] [phone] * CT Cervical Spine w/o Contrast (08/11/2025 7:25 PM EDT) Anatomical Region Laterality Modality Spine, C-spine Computed Tomogra phy 08/11/2025 7:25 PM EDT Narrative 08/11/2025 7:27 PM EDT [place] [address] CT Scan Report Signed Patient: Marin Valdez MR#: [id number] : 1950 Acct:[id number] Age/Sex: 74 / M ADM Date: 08/10/25 Loc: [facility] 474-[address]: Lonnie Lemus MD Ordering Physician: Lonnie Lemus MD Date of Service: 08/11/25 Procedure(s): CT cervical spine wo IV con Accession Number(s): [id number] cc: Marleny Beebe MD; Lonnie Lemus MD Report Number: [id number]: Total DLP = 581.00 mGy-cm Reason for [...] in OV> 08/11/251925 DD/ 24 TD/TT: 08/11/251924 Media Technician: Procedure Note Donotuseinterpreter, Image - 08/11/[address] [place] [address] [address] Scan Report Signed Patient: Marin Valdez#: [id number] : 2Acct:[id number] Age/Sex: 74 / MADM Date: 08/10/25 Loc: [facility] 474-[address]: Lonnie Lemus MD Ordering Physician: Lonnie Lemus MD Date of Service: 08/11/25 Procedure(s): CT cervical spine wo IV con Accession Number(s): [id number] cc: Marleny Beebe MD; Lonnie Lemus MD Report Number: [id number]: Total DLP = 581.00 mGy-cm Reason for [...] in OV> 08/11/251925 DD/ 24 TD/TT: 08/11/251924 Media Technician: [facility] External Provider IMG CT PROCEDURES Final Result * High Sensitivity Troponin I (08/10/2025 2:23 PM EDT) TROPONIN I HIGH SENSITIVITY 6.6 <3.5 - 35.0 ng/L [facility] Comment:The [place] high sens itivity Troponin-I results should beused in conjunction with other diagnostic information suchas ECG, clinical observations and information, and patientsymptoms to aid in the diagnosis of IL. 08/10/2025 2:23 PM EDT 08/10/2025 2:26 PM EDT Generic External Data Provider LAB BLOOD ORDERAB LES Final Result [facility] [address] [place] [phone] * Drug Monitoring, Panel 1, Screen, Urine (08/10/2025 1:49 PM EDT) Opiate Screen Urine Not Detected Not Detect [facility] Comment:Opiate cut-off is 30 0 ng/mL.Positive results are unconfirmed and should not be used fornon-medical purposes. Barbiturates, Urine Not Detected Not Detect [facility] Comment:Barbiturate cut-off is 200 ng/mL.Positive results are unconfirmed and should not be used fornon-medical purposes. Phencyclidine Screen Urine Not Detected Not Detect [facility] Comment:Phencyclidine cut-of f is 25 ng/mL.Positive results are unconfirmed and should not be used fornon-medical purposes. Amphetamine Screen Urine Not Detected Not Detect [facility] Comment:Amphetamine cut-off is 1000 ng/mL.Positive results are unconfirmed and should not be used fornon-medical purposes. Benzodiazepines Screen Urine Not Detected Not Detect [facility] Comment:Benzodiazepine cut-o ff is 200 ng/mL.Positive results are unconfirmed and should not be used fornon-medical purposes. Cocaine Screen Urine Not Detected Not Detect [facility] Comment:Cocaine cut-off is 3 00 ng/mL.Positive results are unconfirmed and should not be used fornon-medical purposes. Cannabinoid Screen Urine Not Detected Not Detect [facility] Comment:Cannabinoid cut-off is 50 ng/mL.Positive results are unconfirmed and should not be used fornon-medical purposes. Methadone Screen, Urine Not Detected Not Detect ng/mL [facility] Comment:Methadone cut-off is 300 ng/mL.Positive results are unconfirmed and should not be used fornon-medical purposes. FENTANYL URINE Not Detected Not Detect [facility] Comment:Fentanyl cut-off is 1 ng/mL.Positive results are unconfirmed and should not be used fornon-medical purposes. Oxycodone Urine Screen Not Detected Not Detect ng/mL [facility] Comment:Oxycodone cut-off is 100 ng/mL.Positive results are unconfirmed and should not be used fornon-medical purposes. Buprenorphine Screen Not Detected Not Detect ng/mL [facility] Comment:Buprenorphine cut-of f is 5 ng/mL.Positive results are unconfirmed and should not be used fornon-medical purposes. 08/10/2025 1:49 PM EDT 08/10/2025 1:52 PM EDT us Generic External Data Provider LAB URINE ORDERAB LES Final Result Performing Organization Address City/[facility]/ZIP Co de Phone Number [facility] [address] [place] [address] [phone] * (ABNORMAL) Urinalysis, Complete, with Reflex to Culture (08/10/2025 1:49 PM EDT) Color Urine Yellow [facility] Appearance Urine Clear [facility] PH 5.0 5.0 - 9.0 [facility] Glucose Urine UA Negative Negative mg/dL [facility] Urine Blood Negative Negative [facility] Specific [place] - Urine 1.015 1.005 - 1.025 [facility] Urine Protein Trace Neg-Trace mg/dL [facility] Urine Ketones Trace Negative mg/dL [facility] Nitrite Urine Negative Negative [facility] Leukocyte Esterase Urine Small (1+)(A) Negative [facility] RBC Urine 0-2 0 - 2 /HPF [facility] Urine WBC 6-10(A) 0 - 5 /HPF [facility] Urine Squamous Epithelial Cell 0-2 0 - 2 /HPF [facility] Urine Bacteria None Seen None Seen [facility] Hyaline Casts, Urine 11-20 0 - 2 /LPF [facility] 08/10/2025 1:49 PM EDT 08/10/2025 1:52 PM EDT Narrative [facility] - 08/10/2025 2:09 PM EDT [id number], Catheterized us Generic External Data Provider LAB URINE ORDERAB LES Final Result [facility] [address] [place] [phone] * CT Abdomen Pelvis w/o Contrast (08/10/2025 1:05 PM EDT) Anatomical Region Laterality Modality Body, Pelvis, Abdomen Computed T omography 08/10/2025 1:05 PM EDT Narrative 08/10/2025 1:52 PM EDT [address] [address] [address] Scan Report Signed Patient: Marin Valdez MR#: [id number] : 1950 Acct:[id number] Age/Sex: 74 / M ADM Date: 08/10/25 Loc: [facility].ED Attending Dr: Ordering Physician: Jennifer Barahona Date of Service: 08/10/25 Procedure(s): CT abdomen pelvis wo IV con Accession Number(s): [id number] cc: Marleny Beebe MD; Jennifer Barahona Report Number: [id number]: Total DLP = 1129.00 mGy-cm Reason for [...] 08/10/25 1349 DD/ 1305 TD/TT: 08/10/25 1315 Media Technician: Procedure Note Donotuseinterpreter, Image - 08/10/[address] [address] [address] Scan Report Signed Patient: Marin ValdezMR#: [id number] : 1950cct:[id number] Age/Sex: 74 / MADM Date: 08/10/25 Loc: HO.ED Attending Dr: Ordering Physician: Jennifer Barahona Date of Service: 08/10/25 Procedure(s): CT abdomen pelvis wo IV con Accession Number(s): [id number] cc: Marleny Beebe MD; Jennifer Barahona Report Number: [id number]: Total DLP = 1129.00 mGy-cm Reason for [...] 08/10/25 1349 DD/ 1305 TD/TT: 08/10/25 1315 Media Technician: [facility] External Provider IMG CT PROCEDURES Final Result * CT Head w/o Contrast (08/10/2025 1:05 PM EDT) Anatomical Region Laterality Modality Head, Neck Computed Tomogra phy 08/10/2025 1:05 PM EDT Narrative 08/10/2025 1:45 PM EDT [place] [address] [address] Scan Report Signed Patient: Marin Valdez MR#: [id number] : 1950 Acct:[id number] Age/Sex: 74 / M ADM Date: 08/10/25 Loc: HO.ED Attending Dr: Ordering Physician: Jennifer Barahona Date of Service: 08/10/25 Procedure(s): CT head/brain wo IV con Accession Number(s): [id number] cc: Marleny Beebe MD; Jennifer Barahona Report Number: [id number]: Total DLP = 887.00 mGy-cm Reason for [...] 08/10/25 1342 DD/ 1305 TD/TT: 08/10/25 1315 Media Technician: Procedure Note Donotuseinterpreter, Image - 08/10/[address] [address] [address] Scan Report Signed Patient: Royce Valdez#: [id number] : 2Acct:[id number] Age/Sex: 74 / MADM Date: 08/10/25 Loc: HO.ED Attending Dr: Ordering Physician: Jennifer Barahona Date of Service: 08/10/25 Procedure(s): CT head/brain wo IV con Accession Number(s): [id number] cc: Marleny Beebe MD; Jennifer Barahona Report Number: [id number]: Total DLP = 887.00 mGy-cm Reason for [...] 08/10/25 1342 DD/ 1305 TD/TT: 08/10/25 1315 Media Technician: [facility] External Provider IMG CT PROCEDURES Final Result * XR Chest 1 View (08/10/2025 12:38 PM EDT) Anatomical Region Laterality Modality Chest Radiographic Guillermina ging 08/10/2025 12:3 8 PM EDT Narrative 08/10/2025 12:59 PM EDT [address] [address] XRay Report Signed Patient: Marin Valdez MR#: [id number] : 1950 Acct:[id number] Age/Sex: 74 / M ADM Date: 08/10/25 Loc: HO.ED Attending Dr: Ordering Physician: Jennifer Barahona Date of Service: 08/10/25 Procedure(s): XR chest 1V Accession Number(s): [id number] cc: Marleny Beebe MD; Jennifer Barahona Reason [...] Vasiliy Mcdonald MD 08/10/2025 12:55 PM EDT Dictated By: Vasiliy Singh MD Signed By: <Electronically signed by Vasiliy Cruz MD in OV> 08/10/25 1255 DD/ 1238 TD/TT: 08/10/25 1252 Media Technician: Procedure Note Donotuseinterpreter, Image - 08/10/[address] [address] XRay Report Signed Patient: Marin ValdezMR#: [id number] : 1950cct:[id number] Age/Sex: 74 / MADM Date: 08/10/25 Loc: HO.ED Attending Dr: Ordering Physician: Jennifer Barahona Date of Service: 08/10/25 Procedure(s): XR chest 1V Accession Number(s): [id number] cc: Marleny Beebe MD; Jennifer Barahona Reason [...] 08/10/25 1255 DD/ 1238 TD/TT: 08/10/25 1252 Media Technician: [facility] External Provider IMG XR PROCEDURES Final Result * Lactic Acid (08/10/2025 12:22 PM EDT) Lactic Acid 1.7 0.5 - 2.0 mmol/L [facility] 08/10/2025 12:2 2 PM EDT 08/10/2025 12:29 PM EDT Generic External Data Provider LAB BLOOD ORDERAB LES Final Result [facility] [address] [place] [phone] * NT-proBNP (08/10/2025 11:06 AM EDT) NT-proBNP 180.3 <300 pg/mL [facility] Comment:Reference Range:Age Group (years) NT-proBNP (pg/ml) InterpretationAll <300 Negative: HF unlikelyFor patients presenting to the ED with clinical suspicion ofnew onset or worsening HF, see below:18 to <50 >299.9 to <450.0 Grayzone: [id number] to 75 >299.9 to <900.0 other causes of>75 >299.9 to <1800.0 NT-proBNP [id number] to <50 >449.9 Positive: HF ejytnu09-89 >899.9>75 >1799.9Note: Elevated NT-proBNP levels should be interpreted inthe context of other clinical information. 08/10/2025 11:0 6 AM EDT 08/10/2025 11:13 AM EDT Generic External Data Provider LAB BLOOD ORDERAB LES Final Result Performing Organization Address City/[facility]/ZIP Co de Phone Number [facility] [address] [place] [phone] * Creatine Kinase, Total (08/10/2025 11:06 AM EDT) Creatine Kinase Total 109 38 - 174 U/L [facility] 08/10/2025 11:0 6 AM EDT 08/10/2025 11:12 AM EDT Generic External Data Provider LAB BLOOD ORDERAB LES Final Result Performing Organization Address City/[facility]/ZIP Co de Phone Number [facility] [address] [place] [phone] * High Sensitivity Troponin I (08/10/2025 11:06 AM EDT) TROPONIN I HIGH SENSITIVITY 10.1 <3.5 - 35.0 ng/L [facility] Comment:The [place] high sens itivity Troponin-I results should beused in conjunction with other diagnostic information suchas ECG, clinical observations and information, and patientsymptoms to aid in the diagnosis of IL. 08/10/2025 11:0 6 AM EDT 08/10/2025 11:13 AM EDT us Generic External Data Provider LAB BLOOD ORDERAB LES Final Result Performing Organization Address City/[facility]/ZIP Co de Phone Number [facility] [address] [place] [phone] * (ABNORMAL) Magnesium (08/10/2025 11:06 AM EDT) Pathologist [facility] Magnesium 1.5(L) 1.6 - 2.6 mg/dL [facility] 08/10/2025 11:0 6 AM EDT 08/10/2025 11:12 AM EDT Generic External Data Provider LAB BLOOD ORDERAB LES Final Result Performing Organization Address [facility] de Phone Number [facility] [address] [place] [phone] * (ABNORMAL) Basic Metabolic Panel (08/10/2025 11:06 AM EDT) Sodium 133(L) 135 - 145 mmol/L [facility] Potassium 4.1 3.3 - 5.1 mmol/L [facility] Chloride 100 96 - 108 mmol/L [facility] Carbon Dioxide 22 22 - 29 mmol/L [facility] Anion Gap 15 12 - 20 [facility] Urea Nitrogen (BUN) 70(H) 9 - 16 mg/dL [facility] Creatinine, Serum 3.91(H) 0.5 - 1.4 mg/dL [facility] Creatinine Clr Calc Pharmacy 22.3 [facility] Comment:eGFR (calculated fro m the MDRD study equation) and eCrCl(calculated from the Cockcroft-Gault equation) are based ondifferent parameters and may not yield comparable results.If eCrCl result is absurd, please check patient'sheight/weight. Estimated Glomerular Filt Rate 15 [facility] Comment:Chronic Kidney Disea se: Estimated GFR < 60 mL/min/1.04q2Plvirk Kidney Disease: Estimated GFR < 15 mL/min/1.73m2 Glucose 148(H) 60 - 115 mg/dL [facility] Calcium 7.9(L) 8.4 - 10.2 mg/dL [facility] 08/10/2025 11:0 6 AM EDT 08/10/2025 11:12 AM EDT Generic External Data Provider LAB BLOOD ORDERAB LES Final Result Performing Organization Address [facility] Co de Phone Number [facility] [address] [place] [phone] * Hepatic Function Panel (08/10/2025 11:06 AM EDT) Pathologist [facility] Bilirubin, Total 0.4 0.0 - 1.0 mg/dL [facility] Bilirubin, Direct 0.1 0.0 - 0.5 mg/dL [facility] Aspartate Amino Transferase 21 5 - 37 U/L [facility] Alanine Aminotransferase 19 0 - 40 U/L [facility] Total Protein 6.7 6.5 - 8.0 g/dL [facility] Albumin Level 3.8 3.5 - 5.0 g/dL [facility] Alkaline Phosphatase 67 39 - 117 U/L [facility] 08/10/2025 11:0 6 AM EDT 08/10/2025 11:12 AM EDT Generic External Data Provider LAB BLOOD ORDERAB LES Final Result Performing Organization Address [facility] Co de Phone Number [facility] [address] [place] [phone] * (ABNORMAL) CBC auto differential (08/10/2025 11:06 AM EDT) White Blood Count 12.7(H) 4.8 - 10.8 X10*3/uL [facility] Red Blood Count 3.83(L) 4.60 - 5.80 X10*6/uL [facility] Hemoglobin 11.2(L) 14.0 - 18.0 g/dl [facility] Hematocrit 33.2(L) 42.0 - 52.0 % [facility] Mean Corpuscular Volume 86.7 80.0 - 98.0 fL [facility] Mean Corpuscular Hemoglobin 29.2 27.0 - 33.0 pg [facility] Mean Corpuscular HGB Conc 33.7 31.0 - 36.0 g/dl [facility] Red Cell Distribution Width 13.9 11.0 - 16.0 % [facility] Platelet Count 233 160 - 400 X10*3/uL [facility] Mean Platelet Volume 10.5 9.4 - 12.4 fL [facility] Neutrophils Percent Auto 61.7 45 - 73 % [facility] Imm Gran Pct Auto 0.9(H) 0.0 - 0.4 % [facility] Lymphocytes Percent Auto 26.9 20 - 40 % [facility] Monocytes Percent Auto 9.3 2 - 11 % [facility] Eosinophils Percent Auto 1.0 0 - 4 % [facility] Basophils Percent Auto 0.2 0 - 2 % [facility] NRBC Pct Auto 0.0 0.0 - 0.2 /100WBC [facility] Neutrophils Absolute Auto 7.8 2.0 - 8.3 x10*3/uL [facility] Imm Gran Abs Auto 0.11(H) 0.00 - 0.03 X10*3/uL [facility] Lymphocytes Absolute Auto 3.4 1.2 - 4.9 X10*3/uL [facility] Monocytes Absolute Auto 1.2 0.1 - 1.2 X10*3/uL [facility] Eosinophils Absolute Auto 0.1 0.0 - 0.4 X10*3/uL [facility] Basophils Absolute Auto 0.0 0.0 - 0.2 X10*3/uL [facility] NRBC Abs Auto 0.000 0.0 - 0.012 X10*3/uL [facility] 08/10/2025 11:0 6 AM EDT 08/10/2025 11:12 AM EDT us Generic External Data Provider LAB BLOOD ORDERAB LES Final Result Performing Organization Address [facility] Co de Phone Number [facility] [address] [place] [phone] * HOLD LT BLUE - POSSIBLE COAG (08/10/2025 11:05 AM EDT) Hold Lt Blue - Possible Coag SEE NOTE [facility] Comment:Specimen will be hel d untested for 4 hours. Call Hematologyif testing is desired. 08/10/2025 11:0 5 AM EDT 08/10/2025 11:16 AM EDT us Generic External Data Provider LAB BLOOD ORDERAB LES Final Result Performing Organization Address [facility] de Phone Number [facility] [address] [place] [phone] documented in this encounter Visit Diagnoses Diagnosis Benign essential hypertension- Primary Essential hypertension, benign documented in this encounter Care Teams Security Operations Analyst Relationship Specialty Start Date End Date Marleny Beebe MD [address] [place] [address] PCP - General Family Medicine 12/25/16 Kavin Tan, Ana [address] [place] [address] Pharmacist Pharmacy 07/13/25 documented as of this encounter
--- OUTSIDE RECORDS SUMMARY | 2025-10-03 09:08 | XMS_ITS | Encounter Summary ---
Author Organization [employer] Address [address] [place] [address] [address] [place] [address] Care Team Providers Care Stack Clerk Name Role Phone Marleny Beebe MD Primary Care Provider + Kavin Tan PharmD Unavailable [phone] Reason for Visit * Reason Comments Med Refill Encounter Details Date Type Department Care Team (Late st Contact Info) Description 03/06/2023 Refill [facility] [address] [place] [address] [phone] Marleny Beebe MD [address] [place] [address] [phone] Controlled type 2 diabetes mellitus with hyperglycemia, with long-term current use of insulin ([facility]); Primary hypertension Social History Tobacco Use Types [...] Description 11/01/2025 11:45 AM EST Office Visit [facility] [address] [place] [address] [phone] Marleny Beebe MD [address] [place] [address] [phone] documented as of this encounter Visit Diagnoses Diagnosis Controlled type 2 diabetes mellitus with hyperglycemia, with long-term current use of insulin (HCC) Primary hypertension Unspecified essential hypertension documented in this encounter Care Teams Stack Clerk Relationship Specialty Start Date End Date Marleny Beebe MD [address] [place], [place] [phone] PCP - General Family Medicine 12/25/16 Kavin Tan, Ana [address] [place] [address] Pharmacist Pharmacy 07/13/25 documented as of this encounter
--- OUTSIDE RECORDS SUMMARY | 2025-10-03 09:08 | XMS_ITS | Clinical Summary ---
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) Left leg DVT ([facility] V24, [facility] [place] V28) DX:Left leg DVT (HCC) Leg edema DX:Leg edema Osteoarthritis DX:Osteoarthriti s Arthritis, lumbar spine DX:Arthr itis, lumbar spine; COMMENT: recieved cortisone injections, had surgery Ischemic colon ([facility] V24) DX: Ischemic colon (HCC) Acute vascular insufficiency of intestine ([facility] V24) DX:Acute vascular insufficie ncy of intestine ([facility]); COMMENT: s/p surgery COPD (chronic obstructive pu lmonary disease) ([facility], [facility] [place] DX:COPD (chronic o bstructive pulmonary disease) ([facility]); COMMENT: emphysema Obstructive sleep apnea DX:Obstr uctive sleep apnea; COMMENT: on CPAP at night Depression, major DX:Depression, major Ileostomy in place ([facility] [place], [facility] [place] 09/25/2012 DX:Ileostomy in place ([facility]) Osteoarthritis DX:Osteoarthriti s Type II or unspecified type diabetes mellitus with unspecified complication, not stated as uncontrolled DX:Type II or unspecified ty pe diabetes mellitus with unspecified complication, not stated as uncontrolled CKD (chronic kidney disease) stage 3, GFR 30-59 ml/min ([facility] [place], [facility] [place] 05/03/2013 DX:CKD (chronic kidney disea se) stage 3, GFR 30-59 ml/min ([facility]) COPD (chronic obstructive pu lmonary disease) ([facility] [place], [facility] [place] DX:COPD (chronic o bstructive pulmonary disease) ([facility]) Incisional hernia 02/17/2014 DX:Incisional hernia [...] on file Sexual Orientation Not on file Plan of Treatment Health Maintenance Due Date [...] age to complete this topic Care Teams Claim Service Representative Relationship Specialty Start Date End Date Saad Cesar MD PCP - General Internal Medicine 09/16/12
--- OUTSIDE RECORDS SUMMARY | 2025-10-03 09:08 | XMS_ITS | Encounter Summary ---
Author Organization [employer] Address [address] [facility] [address] [place] [address] Care Team Providers Care Bobbin Presser Name Role Phone Marleny Beebe MD Primary Care Provider + Kavin Tan PharmD Unavailable [phone] Reason for Visit * Reason Comments Med Refill Encounter Details Date Type Department Care Team (Late st Contact Info) Description 05/30/2023 Refill [facility] [address] [place], [place] [phone] Laurel Jiang MD [address] [place] [address] [phone] Anxiety and depression Social History Tobacco Use [...] Description 11/01/2025 11:45 AM EST Office Visit [facility] [address] [place] [phone] Marleny Beebe MD [address] [place] [phone] documented as of this encounter Visit Diagnoses Diagnosis Anxiety and depression documented in this encounter Care Teams Bobbin Presser Relationship Specialty Start Date End Date Marleny Beebe MD [address] [place] [phone] PCP - General Family Medicine 12/25/16 Kavin Tan, NahumD [address] [place] [phone] Pharmacist Pharmacy 07/13/25 documented as of this encounter
--- OUTSIDE RECORDS SUMMARY | 2025-10-03 09:08 | XMS_ITS | Encounter Summary ---
Author Organization [employer] Address [address] [facility] [address]t [place] [address] Care Team Providers Care Horticultural Therapist Name Role Phone Marlney Beebe MD Primary Care Provider + Kavin Tan PharmD Unavailable [phone] Encounter Details Date Type Department Care Team (Late st Contact Info) Description 08/10/2025 Results Follow-Up [facility] [address] [place] [address] Marleny Beebe MD [address] [place] [address] CBC auto differential, HOLD LT BLUE - [...] Description 11/01/2025 11:45 AM EST Office Visit [facility] [address] [place] [address] Marleny Beebe MD [address] [place] [address] documented as of this encounter Visit Diagnoses Not on filedocumented in this encounter Care Teams Horticultural Therapist Relationship Specialty Start Date End Date Marleny Beebe MD [address] [place] [phone] PCP - General Family Medicine 12/25/16 Kavin Tan, NahumD [address] [place] [phone] Pharmacist Pharmacy 07/13/25 documented as of this encounter
--- OUTSIDE RECORDS SUMMARY | 2025-10-03 09:08 | XMS_ITS | Encounter Summary ---
Author Organization [employer] Address [address] [facility] [address] [place] [address] Care Team Providers Care Cushion Filler Name Role Phone Marleny Beebe MD Primary Care Provider + Kavin Tan PharmD Unavailable [phone] Encounter Details Date Type Department Care Team (Late st Contact Info) Description 05/26/2023 Orders Only [facility] [address] [place], [place] [phone] Dejah Stewart LPN Social History Tobacco Use [...] Description 11/01/2025 11:45 AM EST Office Visit [facility] [address] [place], [place] [phone] Marleny Beebe MD [address] [place], [place] [phone] documented as of this encounter Visit Diagnoses Not on filedocumented in this encounter Care Teams Cushion Filler Relationship Specialty Start Date End Date Marleny Beebe MD [address] [place] [address] PCP - General Family Medicine 12/25/16 Kavin Tan, NahumD [address] [place] [address] Pharmacist Pharmacy 07/13/25 documented as of this encounter
--- OUTSIDE RECORDS SUMMARY | 2025-10-03 09:08 | XMS_ITS | Clinical Summary ---
Author Organization [employer] Address [address] [facility] [address] [place] [address] Care Team Providers Care Test Conductor Name Role Phone Marleny Beebe MD Primary Care Provider + Kavin Tan PharmD Unavailable [phone] Allergies No known active allergies Medications * This document contains information received from the source organization and may not represent a complete record from that organization. albuterol 108 (90 Base) MCG/ACT inhalerIndication s:COPD with acute exacerbation (CMS/HCC) ([facility]) Inhale 2 puffs every 6 (six) hours if needed for wheezing. 18 g 023 Active fluticasone (Flonase) 50 MCG/ACT nasal sprayIndications: RSV (respiratory syncytial virus infection) Administer 1 spray into each nostril in the morning. 16 g 2 023 Active Arnuity Ellipta 200 MCG/ACT inhalerIndication s:Mild intermittent asthma without complication INHALE 1 PUFF BY MOUTH EVERY DAY AT THE SAME TIME IN THE MORNING 30 each 11 025 Active montelukast (Singulair) 10 MG tabletIndications :Mild intermittent asthma without complication TAKE 1 TABLET BY MOUTH EVERY EVENING 30 tablet 3 025 Active atorvastatin (Lipitor) 10 MG tablet Take 1 tablet (10 mg) by mouth at bedtime. 90 tablet 2 025 Active metFORMIN (Glucophage) 1000 MG tabletIndications :Controlled type 2 diabetes mellitus with hyperglycemia, with long-term current use of insulin ([facility]) TAKE 1 TABLET BY MOUTH TWICE DAILY IN THE MORNING AND IN THE EVENING WITH MEALS 60 tablet 5 025 Active aspirin (Aspirin Low Dose) 81 MG EC tabletIndications :At high risk for cardiovascular disease Take 1 tablet (81 mg) by mouth at bedtime. 90 tablet 1 Active citalopram (CeleXA) 20 MG tabletIndications :Anxiety [...] hyperglycemia, with long-term current use of insulin ([facility]) 1 each with breakfast and with evening meal. 1 kit Active insulin pen needle (Pentips) 32G x 4 mm misc Use as instructed 100 each Active Lancets (OneTouch Delica Plus [id number]) misc TEST BLOOD SUGAR THREE TIMES DAILY 100 each Active glucose blood (OneTouch Ultra Test) test strip TEST BLOOD SUGAR THREE TIMES DAILY 100 strip Active Alcohol Swabs (Alcohol Pads) 70 % pads Use as directed on skin 100 each Active lidocaine (Lidoderm) 5 % patchIndications: Complete tear of rotator cuff, unspecified laterality, unspecified whether traumatic Apply 1 patch topically Once per day. Remove & discard patch within 12 hours or as directed by . 30 patch Active Blood Pressure Monitoring kitIndications:Be nign essential hypertension Use to measure BP daily 1 kit 025 Active allopurinol (Zyloprim) 100 MG tablet TAKE 1 TABLET BY MOUTH TWICE DAILY IN THE MORNING AND IN THE EVENING 60 tablet 5 025 Active insulin degludec (Tresiba FlexTouch) 100 UNIT/ML injectionIndicati ons:Type 2 diabetes mellitus with hyperglycemia, with long-term current use of insulin ([facility]) INJECT 14 UNITS SUBCUTANEOUSLY EVERY EVENING 15 mL 3 025 Active gabapentin (Neurontin) 600 MG tabletIndications :Diabetic polyneuropathy associated with type 2 diabetes mellitus (HCC) TAKE 1 TABLET BY MOUTH TWICE DAILY IN THE MORNING AND IN THE EVENING 60 tablet 1 025 Active gabapentin (Neurontin) 600 MG tabletIndications :Diabetic polyneuropathy associated with type 2 diabetes mellitus (HCC) TAKE 1 TABLET BY MOUTH TWICE DAILY IN THE MORNING AND IN THE EVENING 60 tablet 1 025 Active chlorthalidone (Hygroton) 25 MG tablet TAKE 1 TABLET BY MOUTH EVERY MORNING 30 tablet 3 025 Active chlorthalidone (Hygroton) 25 MG tablet Take 1 tablet (25 mg) by mouth in the morning. 30 tablet 3 025 2024 Discontinued Active Problems Problem Noted Date Diagnosed Date Acute pyelonephritis 08/22/2025 Assessment & Plan (08/25/2025 2:22 PM EST): - Improved, he completed antibiotics and is currently asymptomatic. - Ordered blood tests to fu GFR in 2 weeks. Follow-up visit scheduled for August 31, 2025. OLIVIA (acute kidney injury) 08/22/2025 Assessment & Plan (08/25/2025 2:23 PM EST): - Has underlying CKD, OLIVIA was secondary to UTI/hypoperfusion from hypotension, GFR started improving at the hospital on IVF and antibiotics. - Monitor GFR in 2 weeks. - Advised regarding proper hydration and monitor BP. -Continue lisinopril and chlorthalidone for now Cognitive dysfunction 07/09/2025 Assessment & Plan (07/09/2025 9:09 AM EDT): It could be due to persistently high blood sugars over the past few months, uncontrolled diabetes and may be exacerbated depression after of his . 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 He needs assistance with ADLs to prevent accidents Diabetic polyneuropathy asso ciated with type 2 diabetes mellitus 07/09/2025 Assessment & Plan (08/25/2025 2:27 PM EST): We discussed about tight control of diabetes Continue gabapentin for now Continue home PT as neuropathy is contributing to recurrent falls at home Assessment & Plan (07/09/2025 9:11 AM EDT): [...] CBC today. -Has appointment with a new Parking Station Attendant on 12/31 at 10:30 am, information given [...] bone changes Order X-Ray Need margarette with cinder man, referral had been sent previously Get X-ray and Fu with ga Assessment & Plan (07/24/2023 11:27 AM EDT): Start Duricef x 1 wk and will fu with him then Counseled about soaking feet in warm water with Epson salt Avoid poking lesions Fu 1 wk Valier of toe 07/24/2023 Assessment & Plan (09/18/2023 11:20 AM EST): Right second toe Pt need to reschedule appointment w/ cinder man Assessment & Plan (07/24/2023 11:30 AM EDT): R toe Refer to cinder man Will need custom made shoes Vitamin D deficiency 06/02/2023 Assessment & Plan (07/24/2023 11:06 AM EDT): Will start Vit-D supplementations x 6 month Encouraged outdoor exercise for sun exposure for 15 min /day Assessment & Plan (06/06/2023 8:54 AM EDT): Start Vit D supplementation x 6m Counseled re outdoor exercise COPD with acute exacerbation ([facility]) 3 Assessment & Plan (06/06/2023 8:53 AM [...] Overview (05/23/2023): emphysema Arthritis, lumbar spine 05/23/2023 Assessment & Plan (08/25/2025 2:27 PM EST): - Significant arthritis in knees and hips as well contributing to frequent falls at home. - Continue home PT. Encourage use of assistive devices (walker, cane) as needed. Emphasized importance of rehabilitation to reduce fall risk and improve strength. - Needs assistance with ADLs to prevent accidents, falls and to keep him safe. Patient needs monitoring for self-care and some support for grooming etc. Acute vascular insufficiency of intestine 2022 Overview [...] of rotator cuff 05/23/2023 Assessment & Plan (09/14/2025 3:18 PM EST): Previously seen by orthopedics, may need surgery. Will complete PT at home, needs assistance with ADLs due to decreased strength to lift objects Assessment & Plan (07/24/2023 11:25 AM EDT): [...] on exertion 12/17/2018 Deformity of foot 09/14/2018 Assessment & Plan (09/14/2025 3:19 PM EST): Refr to podiatry, needs toenail trimming and DM shoes with inserts Cellulitis of trunk 08/07/2018 Chronic low back pain 08/07/2018 Assessment & Plan (09/14/2025 3:20 PM EST): Continue home PT Needs DME at home to prevent falls including a commode, walker and life line (lives alone) Take tylenol prn Assessment & Plan (07/09/2025 8:55 AM EDT): [...] extremity 2017 Acute pulmonary embolism (CMS/HCC) 11/03/2017 Anxiety 05/27/2017 Biceps tendinitis 01/22/2017 Benign essential hypertension 01/01/2017 Assessment & Plan (08/25/2025 2:28 PM EST): BP is controlled today, reportedly on lisinopril + chlorthalidone only. Patient to bring med boxes follow-up with me. Check BMP prior to next visit appointment Assessment & Plan (07/09/2025 8:42 AM EDT): [...] use of insulin 02/21/2016 Assessment & Plan (09/14/2025 3:25 PM EST): It seems better controlled, will continue Novolog tid ac meals + metformin + Tresiba 14u/d Refer to podiatry for toenail trimming , needs DM shoes with inserts Agreed to Flu and covid vax today Had been referred to ophthalmology for evaluation last month Assessment & Plan (08/25/2025 2:25 PM EST): - It seems to be better controlled, recent hyperglycemia probably related to UTI. - Continue NovoLog 3 times daily AC meals + metformin. May need to restart Tresiba lower dose?, Will follow-up at next week's appointment with me Assessment & Plan (07/09/2025 8:51 AM EDT): [...] airdroplets contact Stage 3 chronic kidney disease ([facility]) 05/22/2023 06/02/2023 Foot pain 07/08/2018 07/09/2025 Closed fracture of foot 11/03/201706/14 Open fracture of tibial plateau 11/03/2017 09/14/2025 CKD (chronic kidney disease) stage 3, GFR 30-59 ml/min ([facility]) 05/03/2013 06/02/2023 Encounters * This document contains information received from the source organization and may not represent a complete record from that organization. Date Type Department Care Team Description 09/24/2025 Refill [facility] [address] [place] [address] Judy Meraz NP 09/20/2025 Telephone [facility] [address], [place] [phone] Marleny Beebe MD DME commode & walker 09/02/2025 Refill [facility] [address] [place], [place] [phone] Marleny Beebe MD Diabetic polyneuropathy associated with type 2 diabetes mellitus (HCC) 09/02/[address] [address] Marleny Beebe MD 09/01/[address] [address] Marleny Beebe MD Diabetic polyneuropathy associated with type 2 diabetes mellitus (HCC) 08/31/2025 10:30 AM EST Office Visit [address] [address] Marleny Beebe MD Chronic midline low back pain, unspecified whether sciatica present (Primary Dx); Type 2 diabetes mellitus with hyperglycemia, with long-term current use of insulin ([facility]); Dietary counseling; Exercise counseling; Encounter for immunization; Deformity of left foot; Tendinosis of rotator cuff 08/31/2025 Travel 08/30/[address] [address] Marleny Beebe MD chart prep 08/25/2025 Results Follow-Up [address] [address] Marleny Beebe MD Basic Metabolic Panel, CBC auto differential 08/24/2025 Patient Outreach [address] [address] Marleny Beebe MD Pre-visit Planning (SDOH screening completed on 07/07/2025) 08/22/2025 2:30 PM EST Office Visit [address] [address] Marleny Beebe MD Acute pyelonephritis (Primary Dx); OLIVIA (acute kidney injury); Type 2 diabetes mellitus with hyperglycemia, with long-term current use of insulin ([facility]); Diabetic polyneuropathy associated with type 2 diabetes mellitus (HCC); Arthritis, lumbar spine; Benign essential hypertension 08/22/2025 Travel 08/19/[address] [address] Marleny Beebe MD Diabetic polyneuropathy associated with type 2 diabetes mellitus (HCC) 08/18/[address] [address] Marleny Beebe MD FYI 08/17/2025 Telephone [facility] [address] [place] [address] Marleny Beebe MD HDF appt 08/16/2025 Telephone [facility] [address] [place] [address] Marleny Beebe MD Durable Medical Equipment 08/11/2025 Telephone [facility] [address] [place] [address] Marleny Beebe MD Prior Authorization (Lidocaine patches) 08/10/2025 Results Follow-Up [facility] [address] [place] [address] Marleny Beebe MD CBC auto differential, HOLD LT BLUE - POSSIBLE COAG, Hepatic Function Panel, Additional followed-up results: 9 08/10/2025 Travel 07/27/2025 Telephone [facility] [address] [place] [address] Marleny Beebe MD appt 07/20/2025 Telephone [facility] [address] [place] [address] Marleny Beebe MD FYI 07/15/[address] [address] Marleny Beebe MD Durable Medical Equipment (DME Script Diabetic Shoes([facility])) 07/15/2025 Telephone [facility] [address] [place] [address] Marleny Beebe MD appt for 07/1807/14/2025 Telephone [facility] [address] [place] [address] Marleny Beebe MD Appointment 07/14/2025 Refill [facility] [address] [place] [address] Marleny Beebe MD 07/14/2025 Telephone [facility] [address] [place] [address] Marleny Beebe MD DME 07/13/2025 Telephone [facility] [address] [place] [address] Marleny Beebe MD Insurance 07/13/2025 Travel 07/11/[address] [address] Marleny Beebe MD VNA services 07/11/2025 Orders Only [address] [phone] Marleny Beebe MD Benign essential hypertension (Primary Dx) 07/08/2025 Patient Outreach [address] [address] Marleny Beebe MD Care Coordination (CHW outreach for SDOH housing search-LVM ) 07/07/2025 3:45 PM EDT Office Visit [address] [address] Marleny Beebe MD Type 2 diabetes mellitus [...] unspecified whether traumatic 07/07/2025 Travel 07/06/[address] [phone] Marleny Beebe MD chart Prep 07/05/[address] [phone] Marleny Beebe MD Appt change from Last 3 Months Immunizations Immunization Administration Dates Next Due Influenza High-dose Quadriva lent Preservative Free 07/24/2023,07/06/2021,09/13/2020 Influenza injectable quadriv alent IIV4 with preservative 07/08/2017 Influenza injectable quadriv alent preservative free 07/13/2019 Influenza, High Dose Seasona l, Preservative Free 08/31/2025,07/08/2018 Influenza, IIV3, injectable 09/13/2016,0 06/28/2015,08/23/2014,07/07,09/25/2012,07/15/2012 Moderna Covid-19 Vaccine 12+ 11/02/2021,02/09/20 21,01/11/2021 Pfizer Covid-19 Vaccine 12+ 08/31/2025, Pneumococcal Conjugate PCV 20 12/18/2022 Pneumococcal Polysaccharide [...] Sign Reading Time Taken Comments Blood Pressure 102/58 08/31/2025 11:03 AM EST Pulse 66 08/31/2025 11:03 AM EST Temperature 36.2 C (97.1 F) 08/31/2025 11:03 AM EST Respiratory Rate 16 08/31/2025 11:03 AM EST Oxygen Saturation 98% 08/31/2025 11:03 AM EST Inhaled Oxygen Concentration - - Weight 100 kg (221 lb) 08/31/2025 11:03 AM EST Height 172.7 cm (5' 8 ) 08/31/2025 11:03 AM EST Body Mass Index 33.6 08/31/2025 11:03 AM EST Plan of Treatment Upcoming Encounters Date Type Department Care Team (Late st Contact Info) Description 11/01/2025 11:45 AM EST Office Visit [facility] [address] [place] [address] Marleny Beebe MD [address] [place] [address] Health Maintenance Due Date Last Done Comments CT Colonography 1951 Colonoscopy 1950 Colorectal Cancer Screening 1950 FIT DNA/Cologuard 1950 FIT 1950 FOBT 1950 Sigmoidoscopy 1950 RSV Patients and Patients Aged 60 years or older (1 - Risk 50-74 years 1-dose series) 12/30/2001 Dental Oral Exam 02/07/2024 08/07/2023, 10/30/2021 Dental Prophylaxis 02/07/2024 08/07/2023, 11/08/2009 Depression Screening 05/23/2024 05/23/2023, 05/23/20 Dental X-Ray: Bitewings 08/08/2024 08/07/20 23, 05/19/2017, 05/19/2017, Additional history exists Eye Exam 09/01/2025 09/01/2023, 08/14, 09/01/2023, Additional history exists Diabetes: Hemoglobin A1C 09/13/2025 025, 12/30/2023, 05/23/2023, Additional history exists COVID-19 Vaccine ( season) 2026 08/31/2025, 07/24/2023, 11/02/2021, Additional history exists Alcohol/Substance Use Screening 07/07/2026 07/07/2025 SDOH Screening 07/07/2026 07/07/2025 Dental X-Ray: Full Mouth 08/08/2026 023, 11/29/2020, 07/31/2009 Diabetes: Urine Protein Screening 08/22/2026 08/22/2025, 05/23/2023, 09/14/2020 Lipid Panel 08/22/2026 08/22/2025, 05/13, 01/18/2022, Additional history exists Diabetes: Foot Exam 08/31/2026 08/31/2025, 08/31/2025, 08/31/2025, Additional history exists Tobacco Screening 08/31/2026 08/31/2025 DTaP/Tdap/Td Vaccines (3 - Td or Tdap) 01/19/2027 01/19/2017, 09/25/2012 Zoster Vaccines Completed 05/28/2021, 03/26/2021 Pneumococcal Vaccine: 50+ Years Completed 12/18/2022, 02/17/2014, 07/15/2012 Hepatitis C Screening Completed 05/23/2023 Influenza Vaccine Completed 08/31/2025, , 07/06/2021, Additional history exists HIB Vaccines Aged Out No longer eligi [...] on patient's age to complete this topic Goals Goal Patient Goal Type Associated Problems Recent Progress Patient-Stated? Author Help patients manage their type 2 diabetes Care Plan Help patients manage their type 2 diabetes No Alma Espinoza Weekly blood pressure task [...] disease No Marleny Beebe MD Patient has chronic kidney disease Care Plan Patient has chronic kidney disease No Marleny Beebe MD Patient has chronic [...] disease No Marleny Beebe MD Patient has chronic kidney disease Care Plan Patient has chronic kidney disease No Marleny Beebe MD Patient has chronic [...] has diabetic neuropathy No Natasha Gomez MA Weekly blood pressure task Care Plan Weekly blood pressure task No Tisha Sharpe MA Weekly blood pressure task Care Plan Weekly blood pressure task No Tisha Sharpe MA Weekly blood pressure task Care Plan Weekly blood pressure task No Tisha Sharpe [place] Patient has chronic kidney disease Care Plan Patient has chronic kidney disease No Tisha Sharpe [place] Patient has chronic kidney disease Care Plan Patient has chronic kidney disease No Tisha Sharpe [place] Patient has chronic kidney disease Care Plan Patient has chronic kidney disease No Tisha Sharpe [place] Patient has diabetic neuropathy Care Plan Patient has diabetic neuropathy No Tisha Sharpe [place] Patient has diabetic neuropathy Care Plan Patient has diabetic neuropathy No Tisha Sharpe [place] Patient has diabetic neuropathy Care Plan Patient has diabetic neuropathy No Tisha Sharpe [place] Weekly blood pressure task Care Plan Weekly blood pressure task No WuScarlet dickfer, PharmD Weekly blood pressure task Care Plan [...] Care Plan Patient has diabetic neuropathy No WuVaniaDejah, PharmD Patient has diabetic neuropathy Care Plan Patient has diabetic neuropathy No Wu, Dejah, PharmD Patient has diabetic neuropathy Care Plan Patient has diabetic neuropathy No WuScarlet dickfer, PharmD Weekly blood pressure task Care Plan Weekly blood pressure task No WuDejah dick, PharmD Weekly blood pressure task Care Plan Weekly blood pressure task No WuScarlet dickfer, PharmD Weekly blood pressure task Care Plan Weekly blood pressure task No WuScarlet dickfer, PharmD Patient has chronic kidney disease Care Plan Patient has chronic kidney disease No Wu, Dejah, PharmD Patient has chronic kidney disease Care Plan Patient has chronic kidney disease No Wu, Dejah, PharmD Patient has chronic kidney disease Care Plan Patient has chronic kidney disease No Wu, Dejah, PharmD Patient has diabetic neuropathy Care Plan Patient has diabetic neuropathy No Wu, Dejah, PharmD Patient has diabetic neuropathy Care Plan Patient has diabetic neuropathy No Wu, Dejah, PharmD Patient has diabetic neuropathy Care Plan Patient has diabetic neuropathy No WuScarlet dickfer, PharmD Weekly blood pressure task Care Plan Weekly blood pressure task No Kavin Tan, PharmD Weekly blood pressure task Care Plan Weekly blood pressure task No Kavin Tan, PharmD Weekly blood pressure task Care Plan Weekly blood pressure task No TanMalindaKavin, PharmD Patient has chronic kidney disease Care Plan Patient has chronic kidney disease No TanKavin, PharmD Patient has chronic kidney disease Care Plan Patient has chronic kidney disease No TanKavin, PharmD Patient has chronic kidney disease Care Plan Patient has chronic kidney disease No Kavin Tan, PharmD Patient has diabetic neuropathy Care Plan Patient has diabetic neuropathy No TanKavin, PharmD Patient has diabetic neuropathy Care Plan Patient has diabetic neuropathy No TanMalindaKavin, PharmD Patient has diabetic neuropathy Care Plan Patient has diabetic neuropathy No TanMalindaKavin, PharmD Weekly blood pressure task Care Plan Weekly blood pressure task No Carly Rodriges Weekly blood pressure task Care Plan Weekly blood pressure task No Carly Rodriges Weekly blood pressure task Care Plan Weekly blood pressure task No Carly Rodriges Patient has chronic kidney disease Care Plan Patient has chronic kidney disease No Carly Rodriges Patient has chronic kidney disease Care Plan Patient has chronic kidney disease No Carly Rodriges Patient has chronic kidney disease Care Plan Patient has chronic kidney disease No Carly Rodriges Patient has diabetic neuropathy Care Plan Patient has diabetic neuropathy No Carly Rodriges Patient has diabetic neuropathy Care Plan Patient has diabetic neuropathy No Carly Rodriges Patient has diabetic neuropathy Care Plan Patient has diabetic neuropathy No Carly Rodriges Weekly blood pressure task Care Plan Weekly blood pressure task No Kavin Tan, PharmD Weekly blood pressure task Care Plan Weekly blood pressure task No Kavin Tan, PharmD Weekly blood pressure task Care Plan Weekly blood pressure task No TanKavin, PharmD Patient has chronic kidney disease Care Plan Patient has chronic kidney disease No Kavin Tan, PharmD Patient has chronic kidney disease Care Plan Patient has chronic kidney disease No TanKavin, PharmD Patient has chronic kidney disease Care Plan Patient has chronic kidney disease No TanKavin, PharmD Patient has diabetic neuropathy Care Plan Patient has diabetic neuropathy No TanKavin, PharmD Patient has diabetic neuropathy Care Plan Patient has diabetic neuropathy No TanKavin, PharmD Patient has diabetic neuropathy Care Plan Patient has diabetic neuropathy No TanKavin, PharmD Weekly blood pressure task Care Plan Weekly blood pressure task No Sharpe, Tisha, [place] Weekly blood pressure task Care Plan Weekly blood pressure task No Sharpe, Tisha, [place] Weekly blood pressure task Care Plan Weekly blood pressure task No Sharpe, Tisha, [place] Patient has chronic kidney disease Care Plan Patient has chronic kidney disease No Sharpe Tisha, [place] Patient has chronic kidney disease Care Plan Patient has chronic kidney disease No Sharpe, TishaCHATO Patient has chronic kidney disease Care Plan Patient has chronic kidney disease No Sharpe Tisha, CHATO Patient has diabetic neuropathy Care Plan Patient has diabetic neuropathy No Tisha Sharpe [place] Patient has diabetic neuropathy Care Plan Patient has diabetic neuropathy No Tisha Sharpe [place] Patient has diabetic neuropathy Care Plan Patient has diabetic neuropathy No Tisha Sharpe MA Procedures Procedure Name Priority Date/Time Associated Diagnosis Comments POCT GLUCOSE Routine 08/31/2025 11:05 AM EST Type 2 diabetes mellitus with hyperglycemia, with long-term current use of insulin (HCC) POTASSIUM Routine 08/29/2025 10:35 AM EST OLIVIA (acute kidney injury) SLIDE REVIEW Routine 08/22/2025 3:44 PM EST Benign essential hypertension VITAMIN B12 Routine 08/22/2025 3:44 PM EST Benign essential hypertension ALBUMIN, RANDOM URINE W/CREATININE Routine 08/22/2025 3:44 PM EST Benign essential hypertension LIPID PANEL, STANDARD Routine 08/22/2025 3:44 PM EST Benign essential hypertension HEPATIC FUNCTION PANEL Routine 08/22/2025 3:44 PM EST Benign essential hypertension CBC WITH AUTO DIFFERENTIAL Routine 08/22/2025 3:44 PM EST Acute pyelonephritis OLIVIA (acute kidney injury) BASIC METABOLIC PANEL Routine 08/22/2025 3:44 PM EST Acute pyelonephritis OLIVIA (acute kidney injury) CT CERVICAL SPINE WO CONTRAST Routine 08/11/2025 [...] 11:05 AM EDT Benign essential hypertension POCT GLYCATED HEMOGLOBIN, TOTAL Routine 06/14/2025 3:04 PM EDT Elevated glucose PROPHYLAXIS - ADULT Routine 08/07/2023 2 :00 PM EDT INTRAORAL - COMPLETE SERIES OF RADIOGRAPHIC IMAGES Routine 08/07/2023 2:00 PM EDT COMPREHENSIVE ORAL EVALUATION - NEW OR ESTABLISHED PATIENT Routine 08/07/2023 2:00 PM EDT HEPATITIS PANEL, GENERAL Routine 05/23/2023 11:16 AM EDT Encounter for preventive health examination from Last 3 Months or Most Recently Relevant to Health Maintenance Results * POCT Glucose (08/31/2025 11:05 AM EST) Glucose Blood, POC 174 60 - 200 mg/dL QC Media Lot # [id number] Lot# Expiration Date Blood Capillary blood specimen / Unknown 08/31/2025 11:05 AM EST Marleny Beebe MD POINT OF CARE TEST ENTER /EDIT ORDERABLES Final Result * Potassium (08/29/2025 10:35 AM EST) Pathologist [facility] Potassium 4.2 3.3 - 5.1 mmol/L [facility] Blood Venous blood specimen / Unknown 08/29/2025 10:35 AM EST 08/29/2025 12:14 PM EST Marleny Beebe MD LAB BLOOD ORDERABLES Fin al Result Performing Organization Address City/[facility]/ZIP Co de Phone Number [facility] [address] [place] [phone] * Slide Review (08/22/2025 3:44 PM EST) Pathologist [facility] Slide Review VERIFIED [facility] 08/22/2025 3:44 PM EST 08/22/2025 6:05 PM EST Marleny Beebe MD LAB BLOOD ORDERABLES Fin al Result Performing Organization Address [facility] Co de Phone Number [facility] [address] [place] [phone] * Albumin, Random Urine W/Creatinine (08/22/2025 3:44 PM EST) Creatinine, Urine 133.87 mg/dL [facility] Microalbumin Urine 9.0 mg/L [facility] Microalbum Creatinine Ratio Ur 6.7 <30 ug/mg cr [facility] Comment:Albumin/Creatinine R atio Reference Ranges: Normal: < 30 ug/mg creatinine Microalbuminuria: 30 - 300 ug/mg creatinineClinical Albuminuria: > 300 ug/mg creatinine 08/22/2025 3:44 PM EST 08/22/2025 6:02 PM EST us Marleny Beebe MD LAB URINE ORDERABLES Fin al Result [facility] [address] [place] [phone] * (ABNORMAL) CBC auto differential (08/22/2025 3:44 PM EST) Only the most recent of2 resultswithin the time period is included. White Blood Count 9.6 4.8 - 10.8 X10*3/uL [facility] Red Blood Count 4.29(L) 4.60 - 5.80 X10*6/uL [facility] Hemoglobin 12.5(L) 14.0 - 18.0 g/dl [facility] Hematocrit 39.3(L) 42.0 - 52.0 % [facility] Mean Corpuscular Volume 91.6 80.0 - 98.0 fL [facility] Mean Corpuscular Hemoglobin 29.1 27.0 - 33.0 pg [facility] Mean Corpuscular HGB Conc 31.8 31.0 - 36.0 g/dl [facility] Red Cell Distribution Width 14.3 11.0 - 16.0 % [facility] Platelet Count 301 160 - 400 X10*3/uL [facility] Mean Platelet Volume 10.8 9.4 - 12.4 fL [facility] Neutrophils Percent Auto 58.6 45 - 73 % [facility] Imm Gran Pct Auto 0.5(H) 0.0 - 0.4 % [facility] Lymphocytes Percent Auto 31.8 20 - 40 % [facility] Monocytes Percent Auto 7.0 2 - 11 % [facility] Eosinophils Percent Auto 1.5 0 - 4 % [facility] Basophils Percent Auto 0.6 0 - 2 % [facility] NRBC Pct Auto 0.0 0.0 - 0.2 /100WBC [facility] Neutrophils Absolute Auto 5.6 2.0 - 8.3 x10*3/uL [facility] Imm Gran Abs Auto 0.05(H) 0.00 - 0.03 X10*3/uL [facility] Lymphocytes Absolute Auto 3.0 1.2 - 4.9 X10*3/uL [facility] Monocytes Absolute Auto 0.7 0.1 - 1.2 X10*3/uL [facility] Eosinophils Absolute Auto 0.1 0.0 - 0.4 X10*3/uL [facility] Basophils Absolute Auto 0.1 0.0 - 0.2 X10*3/uL [facility] NRBC Abs Auto 0.000 0.0 - 0.012 X10*3/uL [facility] Blood Venous blood specimen / Unknown 08/22/2025 3:44 PM EST 08/22/2025 6:05 PM EST us Marleny Beebe MD LAB BLOOD ORDERABLES Aristides florencio Result - Final Performing Organization Address City/[facility]/ZIP Co de Phone Number [facility] [address] [place] [phone] * Vitamin B12 (08/22/2025 3:44 PM EST) Vitamin B12 448 200 - 900 pg/mL [facility] Comment:NORMAL 200-900 PG/ML INDETERMINATE 160-199 PG/ML DEFICIENT < 160 PG/ML 08/22/2025 3:44 PM EST 08/22/2025 6:05 PM EST Marleny Beebe MD LAB BLOOD ORDERABLES Fin al Result Performing Organization Address City/[facility]/ZIP Co de Phone Number [facility] [address] [place] [phone] * Hepatic Function Panel (08/22/2025 3:44 PM EST) Only the most recent of2 resultswithin the time period is included. Bilirubin, Total 0.7 0.0 - 1.0 mg/dL [facility] Bilirubin, Direct 0.3 0.0 - 0.5 mg/dL [facility] Aspartate Amino Transferase 30 5 - 37 U/L [facility] Alanine Aminotransferase 33 0 - 40 U/L [facility] Total Protein 7.8 6.5 - 8.0 g/dL [facility] Albumin Level 4.6 3.5 - 5.0 g/dL [facility] Alkaline Phosphatase 70 39 - 117 U/L [facility] 08/22/2025 3:44 PM EST 08/22/2025 6:05 PM EST Marleny Beebe MD LAB BLOOD ORDERABLES Fin al Result [facility] [address] [place] [phone] * (ABNORMAL) Lipid Panel, Standard (08/22/2025 3:44 PM EST) Triglycerides 83 <150 mg/dL [facility] Comment:Desirable Triglyceri de: less than 150 mg/dLBorderline High Triglyceride 150-199 mg/dLHigh Triglyceride: 200-499 mg/dLVery High Triglyceride: greater than or equal to 5OO mg/dL Cholesterol 129 <200 mg/dL [facility] Comment:Desirable Cholestero l: less than 200 mg/dLBorderline High Cholesterol: 200-239 mg/dLHigh Cholesterol: greater than 239 mg/dL LDL Cholesterol Calculated 73 <100 mg/dL [facility] Comment:Desirable LDL: less than 100 mg/dLNear Optimal/Above Optimal LDL: 110- 129 mg/dLBorderline High LDL: 130-159 mg/dLHigh LDL: 160-189 mg/dLVery High LDL: greater than or equal to 190 mg/dL HDL Cholesterol 40(L) >40 mg/dL [facility] Comment:Desirable HDL: great er than 40 mg/dL Note: This HDL assay may give artificially low results in patients with liver disease. 08/22/2025 3:44 PM EST 08/22/2025 6:05 PM EST Marleny Beebe MD LAB BLOOD ORDERABLES Fin al Result Performing Organization Address [facility] Co de Phone Number [facility] [address] [place] [phone] * (ABNORMAL) Basic Metabolic Panel (08/22/2025 3:44 PM EST) Only the most recent of2 resultswithin the time period is included. Sodium 138 135 - 145 mmol/L [facility] Potassium 5.3(H) 3.3 - 5.1 mmol/L [facility] Chloride 105 96 - 108 mmol/L [facility] Carbon Dioxide 24 22 - 29 mmol/L [facility] Anion Gap 14 12 - 20 [facility] Urea Nitrogen (BUN) 33(H) 9 - 16 mg/dL [facility] Creatinine, Serum 1.07 0.5 - 1.4 mg/dL [facility] Estimated Glomerular Filt Rate >60 [facility] Comment:Chronic Kidney Disea se: Estimated GFR < 60 mL/min/1.21m0Tdtkan Kidney Disease: Estimated GFR < 15 mL/min/1.73m2 Glucose 102 60 - 115 mg/dL [facility] Calcium 9.3 8.4 - 10.2 mg/dL [facility] Blood Venous blood specimen / Unknown 08/22/2025 3:44 PM EST 08/22/2025 6:05 PM EST Marleny Beebe MD LAB BLOOD ORDERABLES Fin al Result Performing Organization Address [facility]/ZIP Co de Phone Number [facility] [address] [place] [phone] * CT Cervical Spine w/o Contrast (08/11/2025 7:25 PM EDT) Anatomical Region Laterality Modality Spine, C-spine Computed Tomogra phy 08/11/2025 7:25 PM EDT Narrative 08/11/2025 7:27 PM EDT [place] [address] [address] Scan Report Signed Patient: Marin Valdez MR#: [id number] : 1950 Acct:[id number] Age/Sex: 74 / M ADM Date: 08/10/25 Loc: [facility] 474-[address]: Lonnie Lemus MD Ordering Physician: Lonnie Lemus MD Date of Service: 08/11/25 Procedure(s): CT cervical spine wo IV con Accession Number(s): [id number] cc: Marleny Beebe MD; Lonnie Lemus MD Report Number: [id number]: Total DLP = 581.00 mGy-cm Reason for [...] in OV> 08/11/251925 DD/ 24 TD/TT: 08/11/251924 Track Man: Procedure Note Donottoriter, Image - 08/11/[address] [place] [address] [address] Scan Report Signed Patient: Royce Valdez#: [id number] : 2Acct:[id number] Age/Sex: 74 / MADM Date: 08/10/25 Loc: [facility] 474-[address]: Lonnie Lemus MD Ordering Physician: Lonnie Lemus MD Date of Service: 08/11/25 Procedure(s): CT cervical spine wo IV con Accession Number(s): [id number] cc: Marleny Beebe MD; Lonnie Lemus MD Report Number: [id number]: Total DLP = 581.00 mGy-cm Reason for [...] in OV> 08/11/251925 DD/ 24 TD/TT: 08/11/251924 Track Man: [facility] External Provider IMG CT PROCEDURES Final Result * High Sensitivity Troponin I (08/10/2025 2:23 PM EDT) Only the most recent of2 resultswithin the time period is included. TROPONIN I HIGH SENSITIVITY 6.6 <3.5 - 35.0 ng/L [facility] Comment:The [place] high sens itivity Troponin-I results should beused in conjunction with other diagnostic information suchas ECG, clinical observations and information, and patientsymptoms to aid in the diagnosis of [place]. 08/10/2025 2:23 PM EDT 08/10/2025 2:26 PM EDT Generic External Data Provider LAB BLOOD ORDERAB LES Final Result [facility] [address] [place] [phone] * (ABNORMAL) Urinalysis, Complete, with Reflex to Culture (08/10/2025 1:49 PM EDT) Color Urine Yellow [facility] Appearance Urine Clear [facility] PH 5.0 5.0 - 9.0 [facility] Glucose Urine UA Negative Negative mg/dL [facility] Urine Blood Negative Negative [facility] Specific [place] - Urine 1.015 1.005 - 1.025 [facility] Urine Protein Trace Neg-Trace mg/dL [facility] Urine Ketones Trace Negative mg/dL [facility] Nitrite Urine Negative Negative [facility] Leukocyte Esterase Urine Small (1+)(A) Negative [facility] RBC Urine 0-2 0 - 2 /HPF [facility] Urine WBC 6-10(A) 0 - 5 /HPF [facility] Urine Squamous Epithelial Cell 0-2 0 - 2 /HPF [facility] Urine Bacteria None Seen None Seen [facility] Hyaline Casts, Urine 11-20 0 - 2 /LPF [facility] 08/10/2025 1:49 PM EDT 08/10/2025 1:52 PM EDT Narrative [facility] - 08/10/2025 2:09 PM EDT [id number], Catheterized us Generic External Data Provider LAB URINE ORDERAB LES Final Result [facility] [address] [place] [phone] * Drug Monitoring, Panel 1, Screen, Urine (08/10/2025 1:49 PM EDT) Opiate Screen Urine Not Detected Not Detect [facility] Comment:Opiate cut-off is 30 0 ng/mL.Positive results are unconfirmed and should not be used fornon-medical purposes. Barbiturates, Urine Not Detected Not Detect [facility] Comment:Barbiturate cut-off is 200 ng/mL.Positive results are unconfirmed and should not be used fornon-medical purposes. Phencyclidine Screen Urine Not Detected Not Detect [facility] Comment:Phencyclidine cut-of f is 25 ng/mL.Positive results are unconfirmed and should not be used fornon-medical purposes. Amphetamine Screen Urine Not Detected Not Detect [facility] Comment:Amphetamine cut-off is 1000 ng/mL.Positive results are unconfirmed and should not be used fornon-medical purposes. Benzodiazepines Screen Urine Not Detected Not Detect [facility] Comment:Benzodiazepine cut-o ff is 200 ng/mL.Positive results are unconfirmed and should not be used fornon-medical purposes. Cocaine Screen Urine Not Detected Not Detect [facility] Comment:Cocaine cut-off is 3 00 ng/mL.Positive results are unconfirmed and should not be used fornon-medical purposes. Cannabinoid Screen Urine Not Detected Not Detect [facility] Comment:Cannabinoid cut-off is 50 ng/mL.Positive results are unconfirmed and should not be used fornon-medical purposes. Methadone Screen, Urine Not Detected Not Detect ng/mL [facility] Comment:Methadone cut-off is 300 ng/mL.Positive results are unconfirmed and should not be used fornon-medical purposes. FENTANYL URINE Not Detected Not Detect [facility] Comment:Fentanyl cut-off is 1 ng/mL.Positive results are unconfirmed and should not be used fornon-medical purposes. Oxycodone Urine Screen Not Detected Not Detect ng/mL [facility] Comment:Oxycodone cut-off is 100 ng/mL.Positive results are unconfirmed and should not be used fornon-medical purposes. Buprenorphine Screen Not Detected Not Detect ng/mL [facility] Comment:Buprenorphine cut-of f is 5 ng/mL.Positive results are unconfirmed and should not be used fornon-medical purposes. 08/10/2025 1:49 PM EDT 08/10/2025 1:52 PM EDT Generic External Data Provider LAB URINE ORDERAB LES Final Result Performing Organization Address City/State/[facility] Co de Phone Number [facility] [address] [place] [phone] * CT Head w/o Contrast (08/10/2025 1:05 PM EDT) Anatomical Region Laterality Modality Head, Neck Computed Tomogra phy 08/10/2025 1:05 PM EDT Narrative 08/10/2025 1:45 PM EDT [address] [address] [address] Scan Report Signed Patient: Marin Valdez MR#: [id number] : 1950 Acct:[id number] Age/Sex: 74 / M ADM Date: 08/10/25 Loc: HO.ED Attending Dr: Ordering Physician: Jennifer Barahona Date of Service: 08/10/25 Procedure(s): CT head/brain wo IV con Accession Number(s): [id number] cc: Marleny Beebe MD; Jennifer Barahona Report Number: [id number]: Total DLP = 887.00 mGy-cm Reason for [...] 08/10/25 1342 DD/ 1305 TD/TT: 08/10/25 1315 Track Man: Procedure Note Donotuseinterpreter, Image - 08/10/[address] [place] [address] [address] Scan Report Signed Patient: Marin Valdez#: [id number] : 1950cct:[id number] Age/Sex: 74 / MADM Date: 08/10/25 Loc: HO.ED Attending Dr: Ordering Physician: Jennifer Barahona Date of Service: 08/10/25 Procedure(s): CT head/brain wo IV con Accession Number(s): [id number] cc: Marleny Beebe MD; Jennifer Barahona Report Number: [id number]: Total DLP = 887.00 mGy-cm Reason for [...] 08/10/25 1342 DD/ 1305 TD/TT: 08/10/25 1315 Track Man: us [facility] External Provider IMG CT PROCEDURES Final Result * CT Abdomen Pelvis w/o Contrast (08/10/2025 1:05 PM EDT) Anatomical Region Laterality Modality Body, Pelvis, Abdomen Computed T omography 08/10/2025 1:05 PM EDT Narrative 08/10/2025 1:52 PM EDT [address] [address] [address] Scan Report Signed Patient: Marin Valdez MR#: [id number] : 1950 Acct:[id number] Age/Sex: 74 / M ADM Date: 08/10/25 Loc: HO.ED Attending Dr: Ordering Physician: Jennifer Barahona Date of Service: 08/10/25 Procedure(s): CT abdomen pelvis wo IV con Accession Number(s): [id number] cc: Marleny Beebe MD; Jennifer Barahona Report Number: [id number]: Total DLP = 1129.00 mGy-cm Reason for [...] 08/10/25 1349 DD/ 1305 TD/TT: 08/10/25 1315 Track Man: Procedure Note Donotuseinterpreter, Image - 08/10/[address] [address] [address] Scan Report Signed Patient: Royce Valdez#: [id number] : 2Acct:[id number] Age/Sex: 74 / MADM Date: 08/10/25 Loc: HO.ED Attending Dr: Ordering Physician: Jennifer Barahona Date of Service: 08/10/25 Procedure(s): CT abdomen pelvis wo IV con Accession Number(s): [id number] cc: Marleny Beebe MD; Jennifer Barahona Report Number: [id number]: Total DLP = 1129.00 mGy-cm Reason for [...] 08/10/25 1349 DD/ 1305 TD/TT: 08/10/25 1315 Track Man: [facility] External Provider IMG CT PROCEDURES Final Result * XR Chest 1 View (08/10/2025 12:38 PM EDT) Anatomical Region Laterality Modality Chest Radiographic Guillermina ging 08/10/2025 12:3 8 PM EDT Narrative 08/10/2025 12:59 PM EDT [place] [address] XRay Report Signed Patient: Marin Valdez MR#: [id number] : 1950 Acct:[id number] Age/Sex: 74 / M ADM Date: 08/10/25 Loc: HO.ED Attending Dr: Ordering Physician: Jennifer Barahona Date of Service: 08/10/25 Procedure(s): XR chest 1V Accession Number(s): [id number] cc: Marleny Beebe MD; Jennifer Barahona Reason [...] 08/10/25 1255 DD/ 1238 TD/TT: 08/10/25 1252 Track Man: Procedure Note Donotuseinterpreter, Image - 08/10/2025 [place] [address] XRay Report Signed Patient: Royce Valdez#: [id number] : 1950cct:[id number] Age/Sex: 74 / MADM Date: 08/10/25 Loc: .ED Attending Dr: Ordering Physician: Jennifer Barahona Date of Service: 08/10/25 Procedure(s): XR chest 1V Accession Number(s): [id number] cc: Marleny Beebe MD; Jennifer Barahona Reason [...] 08/10/25 1255 DD/ 1238 TD/TT: 08/10/25 1252 Track Man: [facility] External Provider IMG XR PROCEDURES Final Result * Lactic Acid (08/10/2025 12:22 PM EDT) Lactic Acid 1.7 0.5 - 2.0 mmol/L [facility] 08/10/2025 12:2 2 PM EDT 08/10/2025 12:29 PM EDT Generic External Data Provider LAB BLOOD ORDERAB LES Final Result Performing Organization Address [facility] Co de Phone Number [facility] [address] [place] [phone] * NT-proBNP (08/10/2025 11:06 AM EDT) NT-proBNP 180.3 <300 pg/mL [facility] Comment:Reference Range:Age Group (years) NT-proBNP (pg/ml) InterpretationAll <300 Negative: HF unlikelyFor patients presenting to the ED with clinical suspicion ofnew onset or worsening HF, see below:18 to <50 >299.9 to <450.0 Grayzone: [id number] to 75 >299.9 to <900.0 other causes of>75 >299.9 to <1800.0 NT-proBNP [id number] to <50 >449.9 Positive: HF [id number] >899.9>75 >1799.9Note: Elevated NT-proBNP levels should be interpreted inthe context of other clinical information. 08/10/2025 11:0 6 AM EDT 08/10/2025 11:13 AM EDT Generic External Data Provider LAB BLOOD ORDERAB LES Final Result Performing Organization Address [facility]/ZIP Co de Phone Number [facility] [address] [place] [phone] * (ABNORMAL) Magnesium (08/10/2025 11:06 AM EDT) Pathologist [facility] Magnesium 1.5(L) 1.6 - 2.6 mg/dL [facility] 08/10/2025 11:0 6 AM EDT 08/10/2025 11:12 AM EDT Generic External Data Provider LAB BLOOD ORDERAB LES Final Result Performing Organization Address City/[facility] Co de Phone Number [facility] [address] [place] [phone] * Creatine Kinase, Total (08/10/2025 11:06 AM EDT) [facility] Creatine Kinase Total 109 38 - 174 U/L [facility] 08/10/2025 11:0 6 AM EDT 08/10/2025 11:12 AM EDT Generic External Data Provider LAB BLOOD ORDERAB LES Final Result Performing Organization Address [facility] de Phone Number [facility] [address] [place] [phone] * HOLD LT BLUE - POSSIBLE COAG (08/10/2025 11:05 AM EDT) [facility] Hold Lt Blue - Possible Coag SEE NOTE [facility] Comment:Specimen will be hel d untested for 4 hours. Call Hematologyif testing is desired. 08/10/2025 11:0 5 AM EDT 08/10/2025 11:16 AM EDT Generic External Data Provider LAB BLOOD ORDERAB LES Final Result Performing Organization Address [facility] de Phone Number [facility] [address] [place] [phone] * (ABNORMAL) POCT A1c (06/14/2025 3:04 PM EDT) [facility] Hemoglobin A1C 8.3(A) 4.0 - 5.7 % Blood 06/14/2025 3:04 PM EDT us Jasen Lamar MD POINT OF CARE TEST ENTER/EDIT OR DERABLES Final Result * Hepatitis Panel, General (05/23/2023 11:16 AM EDT) Hepatitis A IgM Nonreactive Nonreactive [facility] Comment:IgM antibodies to COTTO V not detected; does not exclude earlyacute or recovered HAV infection. ~Hepatitis B Surface Antibody REACTIVE Nonreactive [facility] Comment:REACTIVE: > 11.99 mI U/mL Hepatitis B Core Antibody Reactive Nonreactive [facility] Comment:Presumptive evidence of anti-HBc. Hepatitis C Antibody Nonreactive Nonreactive [facility] Comment:Antibodies to HCV no t detected; does not exclude early acuteHCV infection. Hepatitis B Surface Ag Negative Negative [facility] Blood 05/23/2023 11:1 6 AM EDT 05/23/2023 1:49 PM EDT us Marleny Beebe MD LAB BLOOD ORDERABLES Fin al Result [facility] [address] [place] [phone] from Last 3 Months or Most Recently Relevant to Health Maintenance Additional Health Concerns Active Problems Noted Date [...] diabetic neuropathy 09/02/2025 Weekly blood pressure task 09/05/2025 Weekly blood pressure task 09/05/2025 Weekly blood pressure task 09/05/2025 Patient has chronic kidney disease 09/05/2025 Patient has chronic kidney disease 09/05/2025 Patient has chronic kidney disease 09/05/2025 Patient has diabetic neuropathy 09/05/2025 Patient has diabetic neuropathy 09/05/2025 Patient has diabetic neuropathy 09/05/2025 Weekly blood pressure task 09/15/2025 Weekly blood pressure task 09/15/2025 Weekly blood pressure task 09/15/2025 Patient has chronic kidney disease 09/15/2025 Patient has chronic kidney disease 09/15/2025 Patient has chronic kidney disease 09/15/2025 Patient has diabetic neuropathy 09/15/2025 Patient has diabetic neuropathy 09/15/2025 Patient has diabetic neuropathy 09/15/2025 Weekly blood pressure task 09/20/2025 Weekly blood pressure task 09/20/2025 Weekly blood pressure task 09/20/2025 Patient has chronic kidney disease 09/20/2025 Patient has chronic kidney disease 09/20/2025 Patient has chronic kidney disease 09/20/2025 Patient has diabetic neuropathy 09/20/2025 Patient has diabetic neuropathy 09/20/2025 Patient has diabetic neuropathy 09/20/2025 Weekly blood pressure task 09/20/2025 Weekly blood pressure task 09/20/2025 Weekly blood pressure task 09/20/2025 Patient has chronic kidney disease 09/20/2025 Patient has chronic kidney disease 09/20/2025 Patient has chronic kidney disease 09/20/2025 Patient has diabetic neuropathy 09/20/2025 Patient has diabetic neuropathy 09/20/2025 Patient has diabetic neuropathy 09/20/2025 Insurance [facility] STANDARD CCA INTERMEDIATE OPTIONS (HMO D-SNP) DENTAL - HSN FULL (MEDICAID) Care Teams Test Conductor Relationship Specialty Start Date End Date Marleny Beebe MD [address] [place] [address] PCP - General Family Medicine 12/25/16 Kavin Tan, NahumD [address] [place] [address] Pharmacist Pharmacy 07/13/25
--- OUTSIDE RECORDS SUMMARY | 2025-10-03 09:09 | XMS_ITS | Encounter Summary ---
Author Organization [employer] Address [address] [place] [address] 7t [place] [address] Care Team Providers Care Decorating Machine Operator Name Role Phone Marleny Beebe MD Primary Care Provider + Kavin Tan PharmD Unavailable [phone] Reason for Visit * Reason Comments Med Refill Encounter Details Date Type Department Care Team (Late st Contact Info) Description 01/29/2023 Refill [facility] MED[facility]INE [address] [place] [address] [phone] Marleny Beebe MD [address] [place] [address] [phone] Controlled type 2 diabetes mellitus with hyperglycemia, with long-term current use of insulin ([facility]); Primary hypertension Social History Tobacco Use [...] Description 11/01/2025 11:45 AM EST Office Visit [facility] [address] [place] [address] [phone] Marleny Beebe MD [address] [place] [address] [phone] documented as of this encounter Visit Diagnoses Diagnosis Controlled type 2 diabetes mellitus with hyperglycemia, with long-term current use of insulin (HCC) Primary hypertension Unspecified essential hypertension documented in this encounter Care Teams Decorating Machine Operator Relationship Specialty Start Date End Date Marleny Beebe MD [address] [place], [place] [phone] PCP - General Family Medicine 12/25/16 Kavin Tan, Ana [address] [place] [address] Pharmacist Pharmacy 07/13/25 documented as of this encounter
--- OUTSIDE RECORDS SUMMARY | 2025-10-03 09:09 | XMS_ITS | Encounter Summary ---
Author Organization [employer] Address [address] [facility] 7t [place] [address] Care Team Providers Care Fuller Brush Worker Name Role Phone Marleny Beebe MD Primary Care Provider + Kavin Tan PharmD Unavailable [phone] Encounter Details Date Type Department Care Team (Late st Contact Info) Description 03/06/2023 Orders Only [facility] [address] [place], [place] [phone] Dejah Stewart LPN Social History Tobacco Use [...] Description 11/01/2025 11:45 AM EST Office Visit [facility] [address] [place] [address] Marleny Beebe MD [address] [place] [address] documented as of this encounter Visit Diagnoses Not on filedocumented in this encounter Care Teams Fuller Brush Worker Relationship Specialty Start Date End Date Marleny Beebe MD [address] [place] [address] PCP - General Family Medicine 12/25/16 Kavin Tan, PharmD [address] [place] [address] Pharmacist Pharmacy 07/13/25 documented as of this encounter
--- OUTSIDE RECORDS SUMMARY | 2025-10-03 09:09 | XMS_ITS | Encounter Summary ---
Author Organization [employer] Address [address] [place] [address] 7t [place] [address] Care Team Providers Care Business Applications Developer Name Role Phone Marleny Beebe MD Primary Care Provider + Kavin Tan PharmD Unavailable [phone] Reason for Visit * Reason Comments Med Refill Encounter Details Date Type Department Care Team (Late st Contact Info) Description 09/18/2022 Refill [facility]INE [address] [place] [address] [phone] Marleny Beebe MD [address] [place] [phone] Social History Tobacco Use Types Packs/Day Years [...] Description 11/01/2025 11:45 AM EST Office Visit [facility] [address] [place] [address] [phone] Marleny Beebe MD [address] [place] [address] [phone] documented as of this encounter Visit Diagnoses Not on filedocumented in this encounter Care Teams Business Applications Developer Relationship Specialty Start Date End Date Marleny Beebe MD [address] [place] [phone] PCP - General Family Medicine 12/25/16 Kavin Tan, PharmD [address] [place] [phone] Pharmacist Pharmacy 07/13/25 documented as of this encounter
--- OUTSIDE RECORDS SUMMARY | 2025-10-03 09:09 | XMS_ITS | Encounter Summary ---
Author Organization [employer] Address [address] [facility] 7t [place] [address] Care Team Providers Care Forklift Truck Operator Name Role Phone Marleny Beebe MD Primary Care Provider + Kavin Tan PharmD Unavailable [phone] Reason for Visit * Reason Comments Med Refill Encounter Details Date Type Department Care Team ([facility] st Contact Info) Description 08/19/2025 Refill [facility]INE [address] [place], [place] [phone] Marleny Beebe MD [address] [place], [place] [phone] Diabetic polyneuropathy associated with type 2 diabetes [...] Description 11/01/2025 11:45 AM EST Office Visit [facility]INE [address] [place] [address] Marleny Beebe MD [address] [place] [address] documented as of this encounter Visit Diagnoses Diagnosis Diabetic polyneuropathy associated with type 2 diabetes mellitus (HCC) documented in this encounter Care Teams Forklift Truck Operator Relationship Specialty Start Date End Date Marleny Beebe MD [address] [place] [phone] PCP - General Family Medicine 12/25/16 Kavin Tan, Ana [address] [place] [phone] Pharmacist Pharmacy 07/13/25 documented as of this encounter
--- OUTSIDE RECORDS SUMMARY | 2025-10-03 09:09 | XMS_ITS | Encounter Summary ---
Author Organization [employer] Address [address] [place] [address] 7t [place] [address] Care Team Providers Care Traffic Rate Clerk Name Role Phone Marleny Beebe MD Primary Care Provider + Kavin Tan PharmD Unavailable [phone] Reason for Visit * Reason Comments Med Refill Encounter Details Date Type Department Care Team (Late st Contact Info) Description 03/06/2023 Refill [facility]INE [address] [place] [address] [phone] Marleny Beebe MD [address] [place] [address] [phone] Primary hypertension; Controlled type 2 diabetes mellitus with hyperglycemia, with long-term current use of insulin ([facility]) Social History Tobacco Use Types Packs/Day [...] Description 11/01/2025 11:45 AM EST Office Visit [facility] [address] [place] [address] [phone] Marleny Beebe MD [address] [place] [address] [phone] documented as of this encounter Visit Diagnoses Diagnosis Primary hypertension Unspecified essential hypertension Controlled type 2 diabetes mellitus with hyperglycemia, with long-term current use of insulin ([facility]) documented in this encounter Care Teams Traffic Rate Clerk Relationship Specialty Start Date End Date Marleny Beebe MD [address] [place], [place] [phone] PCP - General Family Medicine 12/25/16 Kavin Tan, NahumD [address] [place] [address] Pharmacist Pharmacy 07/13/25 documented as of this encounter
--- OUTSIDE RECORDS SUMMARY | 2025-10-03 09:09 | XMS_ITS | Encounter Summary ---
Author Organization [employer] Address [address] [facility] 7t [place] [address] Care Team Providers Care Geothermal Production Manager Name Role Phone Marleny Beebe MD Primary Care Provider + Kavin Tan PharmD Unavailable [phone] Encounter Details Date Type Department Care Team (Late st Contact Info) Description 03/26/2023 Orders Only [facility] [address] [place], [place] [phone] Dejah Stewart LPN Social History Tobacco Use [...] Description 11/01/2025 11:45 AM EST Office Visit [facility] [address] [place] [address] Marleny Beebe MD [address] [place] [address] documented as of this encounter Visit Diagnoses Not on filedocumented in this encounter Care Teams Geothermal Production Manager Relationship Specialty Start Date End Date Marleny Beebe MD [address] [place] [address] PCP - General Family Medicine 12/25/16 Kavin Tan, PharmD [address] [place] [address] Pharmacist Pharmacy 07/13/25 documented as of this encounter
--- OUTSIDE RECORDS SUMMARY | 2025-10-03 09:09 | XMS_ITS | Encounter Summary ---
Author Organization [employer] Address [address] [place] [address] 7t [place] [address] Care Team Providers Care Calenderer Name Role Phone Marleny Beebe MD Primary Care Provider + Kavin Tan PharmD Unavailable [phone] Encounter Details Date Type Department Care Team (Late st Contact Info) Description 10/25/2022 Orders Only [facility] MEDICINE [address] [place] [phone] Jyothi Mccarthy LPN Social History Tobacco Use [...] Description 11/01/2025 11:45 AM EST Office Visit [facility] [address] [place] [phone] Marleny Beebe MD [address] [place] [phone] documented as of this encounter Visit Diagnoses Not on filedocumented in this encounter Care Teams Calenderer Relationship Specialty Start Date End Date Marleny Beebe MD [address] [place] [phone] PCP - General Family Medicine 12/25/16 Kavin Tan, PharmD [address] [place] [phone] Pharmacist Pharmacy 07/13/25 documented as of this encounter
--- OUTSIDE RECORDS SUMMARY | 2025-10-03 09:09 | XMS_ITS | Encounter Summary ---
Author Organization [employer] Address [address] [facility] 7t [place] [address] Care Team Providers Care Retirement Plan Specialist Name Role Phone Marleny Beebe MD Primary Care Provider + Kavin Tan PharmD Unavailable [phone] Reason for Visit * Reason Onset Date Comments FYI 08/18/2025 Encounter Details Date Type Department Care Team ([facility] st Contact Info) Description 08/18/2025 Telephone [facility] MED[facility]INE [address] [place], [place] [phone] Marleny Beebe MD [address] [place], [place] [phone] FYI Social History Tobacco Use Types Packs/Day [...] visits so they will have to discontinue custodial services. Pt will still have PT services. Please contact Esequiel at [phone]. documented in this encounter Plan of Treatment Upcoming Encounters Date Type Department Care Team (Late st Contact Info) Description 11/01/2025 11:45 AM EST Office Visit [facility] [address] [place] [address] Marleny Beebe MD [address] [place] [address] documented as of this encounter Visit Diagnoses Not on filedocumented in this encounter Care Teams Retirement Plan Specialist Relationship Specialty Start Date End Date Marleny Beebe MD [address] [place] [address] PCP - General Family Medicine 12/25/16 Kavin Tan, NahumD [address] [place] [address] Pharmacist Pharmacy 07/13/25 documented as of this encounter
[2025-10-03 09:10] VITALS: BMI 31.9
--- NOTE | 2025-10-03 09:10 | MHC.OFFVIS ---
Vital Signs 10/03/25 09:10 Height 5 ft 8 in Weight 210 lb BMI 31.9 Intake Visit Reasons: Type 2 diab.mellit.w/hypergycemia,defor.of Lt foot Intake Note: Marin is a 74 year old male who presents today as a new patient for a diabetic foot exam and deformity of the left foot. Patient reports his glucoses as of 10/02/25 was 117 and his last known A1c is currently unknown. He denies experiencing numbness or tingling in his feet. patient mentions 3 years ago he had a previous fracture in his right foot. no concerns to his left foot. Allergies No Known Allergies Allergy (Verified 10/03/25 09:12) HPI HPI Type 2 diab.mellit.w/hypergycemia,defor.of Lt foot: Details: The patient is a 74 year old male presenting for a first-time podiatry visit for annual diabetic foot evaluation. Diabetes mellitus: The patient has a history of diabetes mellitus and is treated with insulin. He is unaware of his most recent hemoglobin A1c value. Infected ingrown toenail: The patient reports he attempted to remove a piece of an ingrown toenail from his left great toe a couple of days ago. He notes the toe has subsequently become red. History of foot fracture: He has a history of a right foot fracture which has been present for a while, which he thinks was not treated with a cast or boot at the time of injury. Suspected tinea pedis: He reports some dryness on the bottom of his feet. Neuropathic symptoms: He endorses experiencing burning, numbness, and tingling in his feet. Medical History: - Diabetes mellitus - History of foot fracture Medications: - Insulin for diabetes Social History: - The patient has family in [place] and [place]. [facility] Medical History (Updated 10/03/25 @ 11:04 by Christiano Frost DPM) HLD (hyperlipidemia) Gout Arthritis Diabetes HTN (hypertension) Surgical History (Updated 08/21/25 @ 00:01 by Diane Eric) History of bowel resection Hx of colonoscopy Social History Household Members: None Housing: Apartment Do you presently have visiting nurse or other home services: No Alcohol intake: former Patient Tobacco Use Status: Former Tobacco user e-Cigarette/Vaping Use: Never Used Second Hand Smoke Exposure: No service: No Review of Systems Const All systems reviewed & are unremarkable except as noted in HPI and below Physical Exam Vital Signs: BMI result Body Mass Index 31.9 Extrem Other: *Bilateral Lower Extremity Focused Diabetic Foot Exam Vascular: DP/PT 1/4, CFT<3s to digits, TG warm to cool, mild left hallux lateral nail border edema, pedal hair absent Derm: Skin: dry xerosis bilateral feet Interdigital spaces: Clear, no maceration or fungal infection. Nails: Thickened dystrophic discolored toenails x 10 with subungual debris. left hallux mild erythema, moderate ingrown lateral border with scant serous drainage. Neuro: Greenfield-frida monofilament (10g) test 10/10 intact to right foot, 10/10 intact to left foot. Msk: Deformities: Right midfoot adductus with dorsal bony prominence, no plantar prominence, no preulcerative lesions. Bilateral hallux valgus deformity. Muscle strength: 5/5 in all muscle groups. Gait: Normal, no antalgic or steppage gait observed. Footwear Assessment: Shoes inspected -- diabetic shoes; appropriate fit, no excessive wear, or foreign objects noted. Assessment & Plan Assessment & Plan (1) Paronychia of great toe, left: Code(s): L03.032 - Cellulitis of left toe Category: Medical Plan: A decision was made to defer the nail removal procedure today due to the patient's unknown hemoglobin A1c level, which could pose a risk for poor healing, and he has yet to trial antibiotics. Rx Augmentin BID x 7 days The patient was instructed to keep the affected toe covered with a Band-Aid. Follow-up is scheduled in two weeks to reassess the infection; if it worsens, he is to call for an earlier appointment. (2) Diabetes: Code(s): E11.9 - Type 2 diabetes mellitus without complications Category: Medical Qualifiers: Diabetes mellitus type: type 2 Diabetes mellitus complication status: with diabetic arthropathy Diabetes mellitus complication detail: with other arthropathy Diabetes mellitus supervisor intermediates insulin use: with chcf use Qualified Code(s): E11.618 - Type 2 diabetes mellitus with other diabetic arthropathy; Z79.4 - continuous churn buttermaker (current) use of insulin Plan: Rx hemoglobin A1c The patient will be followed for routine diabetic foot care (3) Charcot joint of right foot: Code(s): M14.671 - Charcot's joint, right ankle and foot Category: Medical Plan: Right foot, appears stable at this time. No increased warmth, no increased mobility, no signs of acute or subacute Charcot episode. Rx right foot and ankle x-rays (4) Osteomyelitis of toe of right foot: Comment: He is tolerating Ertapenem hopefully help osteomyelitis go dormant/inactive. Code(s): M86.9 - Osteomyelitis, unspecified Category: Medical Plan: no signs of infection present currently (5) Xerosis cutis: Code(s): L85.3 - Xerosis cutis Category: Medical Plan: Rx Amlactin Orders: Orders Hemoglobin A1c Today E11.9 - Type 2 diabetes mellitus without complications, L03.032 - Cellulitis of left toe XR Foot Jerson 3V Today M14.671 - Charcot's joint, right ankle and foot Complete Blood Count Auto Diff Today L03.032 - Cellulitis of left toe XR ankle RT min 3V Today M14.671 - Charcot's joint, right ankle and foot Medications: New ammonium lactate 12% (AmLactin) apply to bottom of both feet 1 appl topical DAILY 225 grams 3RF dry feet L85.3 - Xerosis cutis amoxicillin-pot clavulanate 875-125 mg Take one tablet twice a day 1 tab PO BID 14 tabs 1RF left big toe nail infection L03.032 - Cellulitis of left toe Coding Level of Care Code New Pt Level 4 (38098) Diagnoses Paronychia of great toe, left L03.032 Type 2 diabetes mellitus with other diabetic arthropathy, with long-term current use of insulin E11.618; Z79.4 Diabetes mellitus type: type 2 Diabetes mellitus complication status: with diabetic arthropathy Diabetes mellitus complication detail: with other arthropathy Diabetes mellitus supervisor intermediates insulin use: with supervisor intermediates use Charcot joint of right foot M14.671 Osteomyelitis of toe of right foot M86.9 Xerosis cutis L85.3
== END 2025-10-03 09:27 | disposition home or self-care (01) ==
LOC: HO.HPODS 08:44
PROVIDERS: PCP Internal Medicine; Visit Provider Student in an Organized Health Care Education/Training Program
DX: L03.032 Cellulitis of left toe (principal); E11.618 Type 2 diabetes mellitus with other diabetic arthropathy; Z79.4 Long term (current) use of insulin; M14.671 Charcot's joint, right ankle and foot; M86.9 Osteomyelitis, unspecified; L85.3 Xerosis cutis
CPT/HCPCS: 99204

== ENCOUNTER 2025-10-07 12:13 | Outpatient (REF) | payer OTHER, SELFPAY ==
--- NOTE | ~2025-10-07 | XR_ITS ---
EXAMINATION: X-ray bilateral feet CLINICAL INFORMATION: Right ankle and foot Charcot's arthropathy COMPARISON: X-ray right foot 06/08/2024 TECHNIQUE: Left foot 3 views. Right foot 3 views. FINDINGS: Left foot: No fracture or dislocation. No significant joint space narrowing or marginal osteophytes. No osseous erosion. No abnormal soft tissue calcification. Plantar and posterior calcaneus spur. Right foot: Redemonstrated is advanced arthropathy of the tarsometatarsal joints, similar to previous. Mild hallux valgus, mild first MTP arthritis. Erosive changes of the distal phalanx of second toe, appearing similar compared to previous. No acute fracture or dislocation. Mild ankle joint degenerative changes redemonstrated. No suspicious soft tissue calcifications. XR/XR Foot Jerson 3V IMPRESSION: Left foot: No acute osseous findings Right foot: Severe arthropathy of the tarsometatarsal joints redemonstrated. This appears similar as compared to previous. Differential consideration include Charcot's arthropathy, degenerative arthropathy.] Electronically signed by: John Rachel MD 10/07/2025 04:35 PM EST
--- NOTE | ~2025-10-07 | XR_ITS ---
EXAMINATION: XR ANKLE, RIGHT CLINICAL INFORMATION: M14.671 - Charcot's joint, right ankle and foot COMPARISON: None available. TECHNIQUE: AP, lateral, and mortise views of the right ankle. FINDINGS: Small chronic appearing ossifications distal to the medial malleolus. No visible acute fracture or dislocation. Ankle mortise is congruent. No talar dome OCD. Dorsal talar neck spurring. Advanced arthropathy in the midfoot, better evaluated on the foot radiographs. Soft tissue swelling. No erosions. Small posterior calcaneal enthesopathy. XR/XR ankle RT min 3V IMPRESSION: No radiographic evidence of acute osseous findings. Midfoot arthropathy. Electronically signed by: John Rachel MD 10/07/2025 04:35 PM [facility]
--- OUTSIDE RECORDS SUMMARY | 2025-10-07 12:16 | XMS_ITS | Clinical Summary ---
Author Organization [employer] Address [address] [facility] [address] [place] [address] Care Team Providers Care Consular Officer Name Role Phone Marleny Beebe MD Primary Care Provider + Kavin Tan PharmD Unavailable [phone] Allergies No known active allergies Medications * This document contains information received from the source organization and may not represent a complete record from that organization. albuterol 108 (90 Base) MCG/ACT inhalerIndication s:COPD with acute exacerbation (CMS/HCC) ([facility]) Inhale 2 puffs every 6 (six) [...] long-term current use of insulin ([facility]) TAKE 1 TABLET BY MOUTH TWICE [...] long-term current use of insulin ([facility]) 1 each with breakfast and with evening meal. 1 kit Active insulin pen needle (Pentips) 32G x 4 mm misc Use as instructed 100 each Active Lancets (OneTouch Delica Plus [id number]) misc TEST BLOOD SUGAR THREE TIMES DAILY [...] long-term current use of insulin ([facility]) INJECT 14 UNITS SUBCUTANEOUSLY EVERY EVENING [...] very likely that he also has microvascular [employer] changes Will try to optimize chronic medical [...] CBC today. -Has appointment with a new Line Worker on 12/31 at 10:30 am, information given [...] bone changes Order X-Ray Need margarette with hand cloth examiner, referral had been sent previously Get X-ray and Fu with oh Assessment & Plan (07/24/2023 11:27 AM EDT): Start Duricef x 1 wk and will fu with him then Counseled about soaking feet in warm water with Epson salt Avoid poking lesions Fu 1 wk [place] of toe 07/24/2023 Assessment & Plan (09/18/2023 11:20 AM EST): Right second toe Pt need to reschedule appointment w/ hand cloth examiner Assessment & Plan (07/24/2023 11:30 AM EDT): R toe Refer to hand cloth examiner Will need custom made shoes Vitamin D deficiency 06/02/2023 Assessment & Plan (07/24/2023 11:06 AM EDT): Will start Vit-D supplementations x 6 month Encouraged outdoor exercise for sun exposure for 15 min /day Assessment & Plan (06/06/2023 8:54 AM EDT): Start Vit D supplementation x 6m Counseled re outdoor exercise COPD with acute exacerbation ([facility]) 3 Assessment & Plan (06/06/2023 8:53 [...] airdroplets contact Stage 3 chronic kidney disease ([facility]) 05/22/2023 06/02/2023 Foot pain 07/08/2018 07/09/2025 Closed fracture of foot 11/03/201706/14 Open fracture of tibial plateau 11/03/2017 09/14/2025 CKD (chronic kidney disease) stage 3, GFR 30-59 ml/min ([facility]) 05/03/2013 06/02/2023 Encounters * This document contains information received from the source organization and may not represent a complete record from that organization. Date Type Department Care Team Description 10/05/2025 Telephone [facility] [address] [place] [address] Marleny Beebe MD 09/24/2025 Refill [facility] [address], [place] [phone] Judy Meraz NP 09/20/2025 Telephone [facility] [address] [place] [address] Marleny Beebe MD DME commode & walker 09/02/2025 Refill [facility] [address] [place] [phone] Marleny Beebe MD Diabetic polyneuropathy associated with type 2 diabetes mellitus (HCC) 09/02/[address] [address] Marleny Beebe MD 09/01/[address] [address] Marleny Beebe MD Diabetic polyneuropathy associated with type 2 diabetes mellitus (HCC) 08/31/2025 10:30 AM EST Office Visit [address] [address] Marleny Beebe MD Chronic midline low back pain, unspecified whether sciatica present (Primary Dx); Type 2 diabetes mellitus with hyperglycemia, with long-term current use of insulin (HCC); Dietary counseling; Exercise counseling; Encounter for immunization; Deformity of left foot; Tendinosis of rotator cuff 08/31/2025 Travel 08/30/[address] [address] Marleny Beebe MD chart prep 08/25/2025 Results Follow-Up [address] [address] Marleny Beebe MD Basic Metabolic Panel, CBC auto differential 08/24/2025 Patient Outreach [address] [address] Marleny Beebe MD Pre-visit Planning (SDOK screening completed on 07/07/2025) 08/22/2025 2:30 PM EST Office Visit [address] [address] Marleny Beebe MD Acute pyelonephritis (Primary Dx); OLIVIA (acute kidney injury); Type 2 diabetes mellitus with hyperglycemia, with long-term current use of insulin (HCC); Diabetic polyneuropathy associated with type 2 diabetes mellitus (HCC); Arthritis, lumbar spine; Benign essential hypertension 08/22/2025 Travel 08/19/[address] [address] Marleny Beebe MD Diabetic polyneuropathy associated with type 2 diabetes mellitus (HCC) 08/18/2025 Telephone [facility] [address] [place] [address] Marleny Beebe MD FYI 08/17/2025 Telephone [facility] [address] [place] [address] Marleny Beebe MD HDF appt 08/16/2025 Telephone [facility] [address] [place] [address] Marleny Beebe MD Durable Medical Equipment 08/11/[address] [address] Marleny Beebe MD Prior Authorization (Lidocaine patches) 08/10/2025 Results Follow-Up [address] [address] Marleny Beebe MD CBC auto differential, HOLD LT BLUE - POSSIBLE COAG, Hepatic Function Panel, Additional followed-up results: 9 08/10/2025 Travel 07/27/[address] [address] Marleny Beebe MD appt 07/20/[address] [address] Marleny Beebe MD FYI 07/15/[address] [address] Marleny Beebe MD Durable Medical Equipment (DME Script Diabetic Shoes([facility])) 07/15/[address] [address] Marleny Beebe MD appt for 07/1807/14/2025 Telephone [facility] [address] [place] [phone] Marleny Beebe MD Appointment 07/14/2025 Refill [facility] [address] [place] [phone] Marleny Beebe MD 07/14/2025 Telephone [facility] [address] [place] [phone] Marleny Beebe MD DME 07/13/2025 Telephone [facility] [address] [place] [phone] Marleny Beebe MD Insurance 07/13/2025 Travel 07/11/2025 Telephone [facility] [address] [place] [phone] Marleny Beebe MD VNA services 07/11/2025 Orders Only [facility] [address] [place] [phone] Marleny Beebe MD Benign essential hypertension (Primary Dx) 07/08/2025 Patient Outreach [facility] [address] [place] [phone] Marleny Beebe MD Care Coordination ([facility] outreach for SDOH housing search-LVM ) from Last 3 Months Immunizations Immunization Administration [...] Description 11/01/2025 11:45 AM EST Office Visit [facility] [address] [place] [address] Marleny Beebe MD [address] [place] [address] Health Maintenance Due Date Last Done Comments [...] 09/01/2023, Additional history exists Diabetes: Hemoglobin A1C 01/01/2026 025, 06/14/2025, 12/30/2023, Additional history exists COVID-19 Vaccine ( season) [...] task Care Plan Weekly blood pressure task Alma Kidd Help patients manage their type 2 diabetes Care Plan Help patients manage their type 2 diabetes Alma Kidd Patient has chronic kidney disease Care Plan Patient has chronic kidney disease Alma Kidd Help patients manage their type 2 diabetes Care Plan Help patients manage their type 2 diabetes Alma Kidd Patient has diabetic neuropathy Care Plan Patient [...] Care Plan Patient has diabetic neuropathy No Olga Alma Patient has diabetic neuropathy Care Plan Patient [...] Weekly blood pressure task No Natasha Gomez ND Weekly blood pressure task Care Plan Weekly blood pressure task No Natasha Gomez [place] Patient has chronic kidney disease Care Plan Patient has chronic kidney disease No Natasha Gomez [place] Patient has chronic kidney disease Care Plan Patient has chronic kidney disease No GomezNatasha cruz [place] Patient has chronic kidney disease Care Plan Patient has chronic kidney disease No Natasha Gomez [place] Patient has diabetic neuropathy Care Plan Patient has diabetic neuropathy No GomezNatasha cruz [place] Patient has diabetic neuropathy Care Plan Patient has diabetic neuropathy No GomezNatasha cruz [place] Patient has diabetic neuropathy Care Plan Patient has diabetic neuropathy No GomezNatasha cruz [place] Weekly blood pressure task Care Plan Weekly blood pressure task No SharpeTisha paige ND Weekly blood pressure task Care Plan Weekly blood pressure task No SharpeTisha ND Weekly blood pressure task Care Plan Weekly blood pressure task No SharpeTisha [place] Patient has chronic kidney disease Care Plan Patient has chronic kidney disease No SharpeTisha paige [place] Patient has chronic kidney disease Care Plan Patient has chronic kidney disease No SharpeTisha paige [place] Patient has chronic kidney disease Care Plan Patient has chronic kidney disease No SharpeTisha [place] Patient has diabetic neuropathy Care Plan Patient has diabetic neuropathy No SharpeTisha paige [place] Patient has diabetic neuropathy Care Plan Patient has diabetic neuropathy No SharpeTisha paige [place] Patient has diabetic neuropathy Care Plan Patient has diabetic neuropathy No SharpeTisha [place] Weekly blood pressure task Care Plan Weekly blood pressure task No Scarlet Wufer, PharmD Weekly blood pressure task Care Plan Weekly blood pressure task No WuScarlet dickfer, PharmD Weekly blood pressure task Care Plan Weekly blood pressure task No Wu, Dejah, PharmD Patient has chronic kidney disease Care Plan Patient has chronic kidney disease No WuVaniaDejah, PharmD Patient has chronic kidney disease Care Plan Patient has chronic kidney disease No Wu Dejah, PharmD Patient has chronic kidney disease [...] Care Plan Weekly blood pressure task No Dejah Wu, PharmD Weekly blood pressure task Care Plan Weekly blood pressure task No Dejah Wu, PharmD Weekly blood pressure task Care Plan Weekly blood pressure task No Dejah Wu, PharmD Patient has chronic kidney disease Care Plan Patient has chronic kidney disease No Dejah Wu, PharmD Patient has chronic kidney disease Care Plan Patient has chronic kidney disease No Dejah Wu, PharmD Patient has chronic kidney disease Care Plan Patient has chronic kidney disease No Dejah Wu, PharmD Patient has diabetic neuropathy Care Plan Patient has diabetic neuropathy No WuScarlet dickfer, PharmD Patient has diabetic neuropathy Care Plan Patient has diabetic neuropathy No Dejah Wu, PharmD Patient has diabetic neuropathy Care Plan Patient has diabetic neuropathy No Dejah Wu, PharmD Weekly blood pressure task Care Plan [...] Weekly blood pressure task No Kavin Tan, PharmMonica Weekly blood pressure task Care Plan Weekly blood pressure task No Kavin Tan, PharmD Weekly blood pressure task Care Plan Weekly blood pressure task No Kavin Tan, PharmD Patient has chronic [...] Care Plan Patient has diabetic neuropathy No Kavin Tan, PharmD Patient has diabetic neuropathy Care Plan Patient has diabetic neuropathy No Kavin Tan, PharmD Weekly blood pressure task Care Plan Weekly blood pressure task No Sharpe, Tisha, [place] Weekly blood pressure task Care Plan Weekly blood pressure task No SharpeTisha paige, [place] Weekly blood pressure task Care Plan [...] Care Plan Patient has diabetic neuropathy No Sharpe Tisha, [place] Weekly blood pressure task Care Plan Weekly blood pressure task No Alberto Remy Weekly blood pressure task Care Plan Weekly blood pressure task No Alberto Remy Weekly blood pressure task Care Plan Weekly blood pressure task No Alberto Remy Patient has chronic kidney disease Care Plan Patient has chronic kidney disease No Alberto Remy Patient has chronic kidney disease Care Plan Patient has chronic kidney disease No Alberto Remy Patient has chronic kidney disease Care Plan Patient has chronic kidney disease No Alberto Remy Patient has diabetic neuropathy Care Plan Patient has diabetic neuropathy No Alberto Remy Patient has diabetic neuropathy Care Plan Patient has diabetic neuropathy No Alberto Remy Patient has diabetic neuropathy Care Plan Patient has diabetic neuropathy No Olga Remyngelie Procedures Procedure Name Priority Date/Time Associated Diagnosis Comments HEMOGLOBIN A1C Routine 10/03/2025 9:34 AM EST Benign essential hypertension CBC WITH AUTO DIFFERENTIAL Routine 10/03/2025 9:34 AM EST Benign essential hypertension POCT GLUCOSE ([id number]) Routine 08/31/2025 11:05 AM EST Type 2 [...] 08/10/2025 11:05 AM EDT Benign essential hypertension PROPHYLAXIS - ADULT Routine 08/07/2023 2 :00 PM EDT INTRAORAL - COMPLETE SERIES OF RADIOGRAPHIC IMAGES Routine 08/07/2023 2:00 PM EDT COMPREHENSIVE ORAL EVALUATION - NEW OR ESTABLISHED PATIENT Routine 08/07/2023 2:00 PM EDT HEPATITIS PANEL, GENERAL Routine 05/23/2023 11:16 AM EDT Encounter for preventive health examination from Last 3 Months or Most Recently Relevant to Health Maintenance Results * (ABNORMAL) CBC auto differential (10/03/2025 9:34 AM EST) Only the most recent of3 resultswithin the time period is included. White Blood Count 9.0 4.8 - 10.8 X10*3/uL [facility] Red Blood Count 4.17(L) 4.60 - 5.80 X10*6/uL [facility] Hemoglobin 12.2(L) 14.0 - 18.0 g/dl [facility] Hematocrit 37.2(L) 42.0 - 52.0 % [facility] Mean Corpuscular Volume 89.2 80.0 - 98.0 fL [facility] Mean Corpuscular Hemoglobin 29.3 27.0 - 33.0 pg [facility] Mean Corpuscular HGB Conc 32.8 31.0 - 36.0 g/dl [facility] Red Cell Distribution Width 13.8 11.0 - 16.0 % [facility] Platelet Count 267 160 - 400 X10*3/uL [facility] Mean Platelet Volume 11.3 9.4 - 12.4 fL [facility] Neutrophils Percent Auto 48.1 45 - 73 % [facility] Imm Gran Pct Auto 0.6(H) 0.0 - 0.4 % [facility] Lymphocytes Percent Auto 41.4(H) 20 - 40 % [facility] Monocytes Percent Auto 7.1 2 - 11 % [facility] Eosinophils Percent Auto 2.1 0 - 4 % [facility] Basophils Percent Auto 0.7 0 - 2 % [facility] NRBC Pct Auto 0.0 0.0 - 0.2 /100WBC [facility] Neutrophils Absolute Auto 4.4 2.0 - 8.3 x10*3/uL [facility] Imm Gran Abs Auto 0.05(H) 0.00 - 0.03 X10*3/uL [facility] Lymphocytes Absolute Auto 3.7 1.2 - 4.9 X10*3/uL [facility] Monocytes Absolute Auto 0.6 0.1 - 1.2 X10*3/uL [facility] Eosinophils Absolute Auto 0.2 0.0 - 0.4 X10*3/uL [facility] Basophils Absolute Auto 0.1 0.0 - 0.2 X10*3/uL [facility] NRBC Abs Auto 0.000 0.0 - 0.012 X10*3/uL [facility] 10/03/2025 9:34 AM EST 10/03/2025 1:53 PM EST us Generic External Data Provider LAB BLOOD ORDERAB LES Final Result Performing Organization Address [facility]/ZIP Co de Phone Number [facility] [address] [place] [phone] * (ABNORMAL) Hemoglobin A1c (10/03/2025 9:34 AM EST) Hemoglobin A1c 7.5(H) <6.0 % [facility] Comment:Hemoglobin A1C Refer ence Range Adults: 4.8 - 6.0 % Non diabetic: < 6.0 % Goal: < 7.0 %Additional Action Suggested: > 8.0 %Note: Hemoglobin A1c results are invalid for patients with abnormal amounts of HbF. Blood transfusions may impact the HbA1c concentration in the patient sample. Estimated Average Glucose 169 mg/dL [facility] Comment:eAG = Estimated ave rage glucose which is %A1C expressed asaverage glucose, using the formula of the [id number]-[id number] Glucose study (ADAG), Diabetes Care, Vol.31,#8,May. 2007 10/03/2025 9:34 AM EST 10/03/2025 1:53 PM EST us Generic External Data Provider LAB BLOOD ORDERAB LES Final Result Performing Organization Address [facility]/ZIP Co de Phone Number [facility] [address] [place] [phone] * POCT Glucose (08/31/2025 11:05 AM EST) Glucose Blood, POC 174 60 - 200 mg/dL QC Media Lot # [id number] Lot# Expiration Date [id number] Blood Capillary blood specimen / Unknown 08/31/2025 11:05 AM EST Marleny Beebe MD POINT OF CARE TEST ENTER /EDIT ORDERABLES Final Result * Potassium (08/29/2025 10:35 AM EST) Potassium 4.2 3.3 - 5.1 mmol/L [facility] Blood Venous blood specimen / Unknown 08/29/2025 10:35 AM EST 08/29/2025 12:14 PM EST Marleny Beebe MD LAB BLOOD ORDERABLES Fin al Result Performing Organization Address [facility] Co de Phone Number [facility] [address] [place] [phone] * Slide Review (08/22/2025 3:44 PM EST) Slide Review VERIFIED [facility] 08/22/2025 3:44 PM EST 08/22/2025 6:05 PM EST Marleny Beebe MD LAB BLOOD ORDERABLES Fin al Result Performing Organization Address [facility] de Phone Number [facility] [address] [place] [phone] * Albumin, Random Urine W/Creatinine (08/22/2025 3:44 PM EST) Creatinine, Urine 133.87 mg/dL [facility] Microalbumin Urine 9.0 mg/L [facility] Microalbum Creatinine Ratio Ur 6.7 <30 ug/mg cr [facility] Comment:Albumin/Creatinine R atio Reference Ranges: Normal: < 30 ug/mg creatinine Microalbuminuria: 30 - 300 ug/mg creatinineClinical Albuminuria: > 300 ug/mg creatinine 08/22/2025 3:44 PM EST 08/22/2025 6:02 PM EST Marleny Beebe MD LAB URINE ORDERABLES Fin al Result Performing Organization Address [facility] Co de Phone Number [facility] [address] [place] [phone] * Vitamin B12 (08/22/2025 3:44 PM EST) Pathologist [facility] [place] Vitamin B12 448 200 - 900 pg/mL [facility] Comment:NORMAL 200-900 PG/ML INDETERMINATE 160-199 PG/ML DEFICIENT < 160 PG/ML 08/22/2025 3:44 PM EST 08/22/2025 6:05 PM EST Marleny Beebe MD LAB BLOOD ORDERABLES Fin al Result Performing Organization Address [facility] de Phone Number [facility] [address] [place] [phone] * Hepatic Function Panel (08/22/2025 3:44 PM EST) Only the most recent of2 resultswithin the time period is included. Pathologist [facility] [place] Bilirubin, Total 0.7 0.0 - 1.0 mg/dL [facility] Bilirubin, Direct 0.3 0.0 - 0.5 mg/dL [facility] Aspartate Amino Transferase 30 5 - 37 U/L [facility] Alanine Aminotransferase 33 0 - 40 U/L [facility] Total Protein 7.8 6.5 - 8.0 g/dL [facility] Albumin Level 4.6 3.5 - 5.0 g/dL [facility] Alkaline Phosphatase 70 39 - 117 U/L [facility] 08/22/2025 3:44 PM EST 08/22/2025 6:05 PM EST Marleny Beebe MD LAB BLOOD ORDERABLES Fin al Result Performing Organization Address [facility] de Phone Number [facility] [address] [place] [phone] * (ABNORMAL) Lipid Panel, Standard (08/22/2025 3:44 PM EST) Triglycerides 83 <150 mg/dL [facility] Comment:Desirable Triglyceri de: less than 150 mg/dLBorderline High Triglyceride 150-199 mg/dLHigh Triglyceride: 200-499 mg/dLVery High Triglyceride: greater than or equal to 5OO mg/dL Cholesterol 129 <200 mg/dL [facility] Comment:Desirable Cholestero l: less than 200 mg/dLBorderline High Cholesterol: 200-239 mg/dLHigh Cholesterol: greater than 239 mg/dL LDL Cholesterol Calculated 73 <100 mg/dL [facility] Comment:Desirable LDL: less than 100 mg/dLNear Optimal/Above Optimal LDL: 110- 129 mg/dLBorderline High LDL: 130-159 mg/dLHigh LDL: 160-189 mg/dLVery High LDL: greater than or equal to 190 mg/dL HDL Cholesterol 40(L) >40 mg/dL [facility] Comment:Desirable HDL: great er than 40 mg/dL Note: This HDL assay may give artificially low results in patients with liver disease. 08/22/2025 3:44 PM EST 08/22/2025 6:05 PM EST Marleny Beebe MD LAB BLOOD ORDERABLES Fin al Result Performing Organization Address [facility] Co de Phone Number [facility] [address] [place] [phone] * (ABNORMAL) Basic Metabolic Panel (08/22/2025 3:44 PM EST) Only the most recent of2 resultswithin the time period is included. Sodium 138 135 - 145 mmol/L [facility] Potassium 5.3(H) 3.3 - 5.1 mmol/L [facility] Chloride 105 96 - 108 mmol/L [facility] Carbon Dioxide 24 22 - 29 mmol/L [facility] Anion Gap 14 12 - 20 [facility] Urea Nitrogen (BUN) 33(H) 9 - 16 mg/dL [facility] Creatinine, Serum 1.07 0.5 - 1.4 mg/dL [facility] Estimated Glomerular Filt Rate >60 [facility] Comment:Chronic Kidney Disea se: Estimated GFR < 60 mL/min/1.52v4Bjyjpa Kidney Disease: Estimated GFR < 15 mL/min/1.73m2 Glucose 102 60 - 115 mg/dL [facility] Calcium 9.3 8.4 - 10.2 mg/dL [facility] Blood Venous blood specimen / Unknown 08/22/2025 3:44 PM EST 08/22/2025 6:05 PM EST us Marleny Beebe MD LAB BLOOD ORDERABLES Fin al Result Performing Organization Address City/State/[facility] Co de Phone Number [facility] [address] [place] [phone] * CT Cervical Spine w/o Contrast (08/11/2025 7:25 PM EDT) Anatomical Region Laterality Modality Spine, C-spine Computed Tomogra phy 08/11/2025 7:25 PM EDT Narrative 08/11/2025 7:27 PM EDT [place] [address] CT Scan Report Signed Patient: Marin Valdez MR#: [id number] : 1950 Acct:[id number] Age/Sex: 74 / M ADM Date: 08/10/25 Loc: [facility] 474-[address]: Lonnie Lemus MD Ordering Physician: Lonnie Lemus MD Date of Service: 08/11/25 Procedure(s): CT cervical spine wo IV con Accession Number(s): [id number] cc: Marleny Beebe MD; Lonnie Lemus MD Report Number: [id number]: Total DLP = 581.00 mGy-cm Reason for [...] in OV> 08/11/251925 DD/ 24 TD/TT: 08/11/251924 Sand Shoveler: Procedure Note Donotuseinterpreter, Image - 08/11/[address] [place] [address] [address] Scan Report Signed Patient: Marin Valdez#: [id number] : 2Acct:[id number] Age/Sex: 74 / MADM Date: 08/10/25 Loc: [facility] 474-[address]: Lonnie Lemus MD Ordering Physician: Lonnie Lemus MD Date of Service: 08/11/25 Procedure(s): CT cervical spine wo IV con Accession Number(s): [id number] cc: Marleny Beebe MD; Lonnie Lemus MD Report Number: [id number]: Total DLP = 581.00 mGy-cm Reason for [...] in OV> 08/11/251925 DD/ 24 TD/TT: 08/11/251924 Sand Shoveler: [facility] External Provider IMG CT PROCEDURES Final Result * High Sensitivity Troponin I (08/10/2025 2:23 PM EDT) Only the most recent of2 resultswithin the time period is included. TROPONIN I HIGH SENSITIVITY 6.6 <3.5 - 35.0 ng/L [facility] Comment:The [place] high sens itivity Troponin-I results should beused in conjunction with other diagnostic information suchas ECG, clinical observations and information, and patientsymptoms to aid in the diagnosis of [place]. 08/10/2025 2:23 PM EDT 08/10/2025 2:26 PM EDT Generic External Data Provider LAB BLOOD ORDERAB LES Final Result [facility] [address] [place] [address] [phone] * (ABNORMAL) Urinalysis, Complete, with Reflex to Culture (08/10/2025 1:49 PM EDT) Color Urine Yellow [facility] Appearance Urine Clear [facility] PH 5.0 5.0 - 9.0 [facility] Glucose Urine UA Negative Negative mg/dL [facility] Urine Blood Negative Negative [facility] Specific [place] - Urine 1.015 1.005 - 1.025 [facility] Urine Protein Trace Neg-Trace mg/dL [facility] Urine Ketones Trace Negative mg/dL [facility] Nitrite Urine Negative Negative [facility] Leukocyte Esterase Urine Small (1+)(A) Negative [facility] RBC Urine 0-2 0 - 2 /HPF [facility] Urine WBC 6-10(A) 0 - 5 /HPF [facility] Urine Squamous Epithelial Cell 0-2 0 - 2 /HPF [facility] Urine Bacteria None Seen None Seen [facility] Hyaline Casts, Urine 11-20 0 - 2 /LPF [facility] 08/10/2025 1:49 PM EDT 08/10/2025 1:52 PM EDT Narrative [facility] - 08/10/2025 2:09 PM EDT [id number], Catheterized us Generic External Data Provider LAB URINE ORDERAB LES Final Result Performing Organization Address [facility]/ZIP Co de Phone Number [facility] [address] [place] [address] [phone] * Drug Monitoring, Panel 1, Screen, Urine (08/10/2025 1:49 PM EDT) Opiate Screen Urine Not Detected Not Detect [facility] Comment:Opiate cut-off is 30 0 ng/mL.Positive results are unconfirmed and should not be used fornon-medical purposes. Barbiturates, Urine Not Detected Not Detect [facility] Comment:Barbiturate cut-off is 200 ng/mL.Positive results are unconfirmed and should not be used fornon-medical purposes. Phencyclidine Screen Urine Not Detected Not Detect [facility] Comment:Phencyclidine cut-of f is 25 ng/mL.Positive results are unconfirmed and should not be used fornon-medical purposes. Amphetamine Screen Urine Not Detected Not Detect [facility] Comment:Amphetamine cut-off is 1000 ng/mL.Positive results are unconfirmed and should not be used fornon-medical purposes. Benzodiazepines Screen Urine Not Detected Not Detect [facility] Comment:Benzodiazepine cut-o ff is 200 ng/mL.Positive results are unconfirmed and should not be used fornon-medical purposes. Cocaine Screen Urine Not Detected Not Detect [facility] Comment:Cocaine cut-off is 3 00 ng/mL.Positive results are unconfirmed and should not be used fornon-medical purposes. Cannabinoid Screen Urine Not Detected Not Detect [facility] Comment:Cannabinoid cut-off is 50 ng/mL.Positive results are unconfirmed and should not be used fornon-medical purposes. Methadone Screen, Urine Not Detected Not Detect ng/mL [facility] Comment:Methadone cut-off is 300 ng/mL.Positive results are unconfirmed and should not be used fornon-medical purposes. FENTANYL URINE Not Detected Not Detect [facility] Comment:Fentanyl cut-off is 1 ng/mL.Positive results are unconfirmed and should not be used fornon-medical purposes. Oxycodone Urine Screen Not Detected Not Detect ng/mL [facility] Comment:Oxycodone cut-off is 100 ng/mL.Positive results are unconfirmed and should not be used fornon-medical purposes. Buprenorphine Screen Not Detected Not Detect ng/mL [facility] Comment:Buprenorphine cut-of f is 5 ng/mL.Positive results are unconfirmed and should not be used fornon-medical purposes. 08/10/2025 1:49 PM EDT 08/10/2025 1:52 PM EDT us Generic External Data Provider LAB URINE ORDERAB LES Final Result [facility] [address] [place] [phone] * CT Head w/o Contrast (08/10/2025 1:05 PM EDT) Anatomical Region Laterality Modality Head, Neck Computed Tomogra phy 08/10/2025 1:05 PM EDT Narrative 08/10/2025 1:45 PM EDT [address] [address] [address] Scan Report Signed Patient: Marin Valdez MR#: [id number] : 1950 Acct:[id number] Age/Sex: 74 / M ADM Date: 08/10/25 Loc: HO.ED Attending Dr: Ordering Physician: Jennifer Barahona Date of Service: 08/10/25 Procedure(s): CT head/brain wo IV con Accession Number(s): [id number] cc: Marleny Beebe MD; Jennifer Barahona Report Number: [id number]: Total DLP = 887.00 mGy-cm Reason for [...] 08/10/25 1342 DD/ 1305 TD/TT: 08/10/25 1315 Sand Shoveler: Procedure Note Donotuseinterpreter, Image - 08/10/[address] [place] [address] [address] Scan Report Signed Patient: Royce Valdez#: [id number] : 1950cct:[id number] Age/Sex: 74 / MADM Date: 08/10/25 Loc: HO.ED Attending Dr: Ordering Physician: Jennifer Barahona Date of Service: 08/10/25 Procedure(s): CT head/brain wo IV con Accession Number(s): [id number] cc: Marleny Beebe MD; Jennifer Barahona Report Number: [id number]: Total DLP = 887.00 mGy-cm Reason for [...] 08/10/25 1342 DD/ 1305 TD/TT: 08/10/25 1315 Sand Shoveler: [facility] External Provider IMG CT PROCEDURES Final Result * CT Abdomen Pelvis w/o Contrast (08/10/2025 1:05 PM EDT) Anatomical Region Laterality Modality Body, Pelvis, Abdomen Computed T omography 08/10/2025 1:05 PM EDT Narrative 08/10/2025 1:52 PM EDT [address] [address] [address] Scan Report Signed Patient: Marin Valdez MR#: [id number] : 1950 Acct:[id number] Age/Sex: 74 / M ADM Date: 08/10/25 Loc: HO.ED Attending Dr: Ordering Physician: Jennifer Barahona Date of Service: 08/10/25 Procedure(s): CT abdomen pelvis wo IV con Accession Number(s): [id number] cc: Marleny Beebe MD; Jennifer Barahona Report Number: [id number]: Total DLP = 1129.00 mGy-cm Reason for [...] 08/10/25 1349 DD/ 1305 TD/TT: 08/10/25 1315 Sand Shoveler: Procedure Note Donotuseinterpreter, Image - 08/10/[address] [place] [address] [address] Scan Report Signed Patient: Marin ValdezMR#: [id number] : 1950cct:[id number] Age/Sex: 74 / MADM Date: 08/10/25 Loc: HO.ED Attending Dr: Ordering Physician: Jennifer Barahona Date of Service: 08/10/25 Procedure(s): CT abdomen pelvis wo IV con Accession Number(s): [id number] cc: Marleny Beebe MD; Jennifer Barahona Report Number: [id number]: Total DLP = 1129.00 mGy-cm Reason for [...] 08/10/25 1349 DD/ 1305 TD/TT: 08/10/25 1315 Sand Shoveler: [facility] External Provider IMG CT PROCEDURES Final Result * XR Chest 1 View (08/10/2025 12:38 PM EDT) Anatomical Region Laterality Modality Chest Radiographic Guillermina ging 08/10/2025 12:3 8 PM EDT Narrative 08/10/2025 12:59 PM EDT [address] [address] XRay Report Signed Patient: Marin Valdez MR#: [id number] : 1950 Acct:[id number] Age/Sex: 74 / M ADM Date: 08/10/25 Loc: .ED Attending Dr: Ordering Physician: Jennifer Barahona Date of Service: 08/10/25 Procedure(s): XR chest 1V Accession Number(s): [id number] cc: Marleny Beebe MD; Jennifer Barahona Reason [...] 08/10/25 1255 DD/ 1238 TD/TT: 08/10/25 1252 Sand Shoveler: Procedure Note Donotuseinterpreter, Image - 08/10/[address] [address] XRay Report Signed Patient: Marin ValdezMR#: [id number] : 1950cct:[id number] Age/Sex: 74 / MADM Date: 08/10/25 Loc: HO.ED Attending Dr: Ordering Physician: Jennifer Barahona Date of Service: 08/10/25 Procedure(s): XR chest 1V Accession Number(s): [id number] cc: Marleny Beebe MD; Jennifer Barahona Reason [...] 08/10/25 1255 DD/ 1238 TD/TT: 08/10/25 1252 Sand Shoveler: [facility] External Provider IMG XR PROCEDURES Final Result * Lactic Acid (08/10/2025 12:22 PM EDT) Lactic Acid 1.7 0.5 - 2.0 mmol/L [facility] 08/10/2025 12:2 2 PM EDT 08/10/2025 12:29 PM EDT Generic External Data Provider LAB BLOOD ORDERAB LES Final Result [facility] [address] [place] [phone] * NT-proBNP (08/10/2025 11:06 AM EDT) NT-proBNP 180.3 <300 pg/mL [facility] Comment:Reference Range:Age Group (years) NT-proBNP (pg/ml) InterpretationAll <300 Negative: HF unlikelyFor patients presenting to the ED with clinical suspicion ofnew onset or worsening HF, see below:18 to <50 >299.9 to <450.0 Grayzone: [id number] to 75 >299.9 to <900.0 other causes of>75 >299.9 to <1800.0 NT-proBNP [id number] to <50 >449.9 Positive: HF [id number] >899.9>75 >1799.9Note: Elevated NT-proBNP levels should be interpreted inthe context of other clinical information. 08/10/2025 11:0 6 AM EDT 08/10/2025 11:13 AM EDT Generic External Data Provider LAB BLOOD ORDERAB LES Final Result Performing Organization Address [facility] Co de Phone Number [facility] [address] [place] [phone] * (ABNORMAL) Magnesium (08/10/2025 11:06 AM EDT) Pathologist [facility] [place] Magnesium 1.5(L) 1.6 - 2.6 mg/dL [facility] 08/10/2025 11:0 6 AM EDT 08/10/2025 11:12 AM EDT Generic External Data Provider LAB BLOOD ORDERAB LES Final Result Performing Organization Address [facility]/ZIP Co de Phone Number [facility] [address] [place] [phone] * Creatine Kinase, Total (08/10/2025 11:06 AM EDT) Pathologist [facility] [place] Creatine Kinase Total 109 38 - 174 U/L [facility] 08/10/2025 11:0 6 AM EDT 08/10/2025 11:12 AM EDT us Generic External Data Provider LAB BLOOD ORDERAB LES Final Result Performing Organization Address [facility]/ZIP Co de Phone Number [facility] [address] [place] [phone] * HOLD LT BLUE - POSSIBLE COAG (08/10/2025 11:05 AM EDT) Hold Lt Blue - Possible Coag SEE NOTE [facility] Comment:Specimen will be hel d untested for 4 hours. Call Hematologyif testing is desired. 08/10/2025 11:0 5 AM EDT 08/10/2025 11:16 AM EDT us Generic External Data Provider LAB BLOOD ORDERAB LES Final Result Performing Organization Address [facility] Co de Phone Number [facility] [address] [place] [phone] * Hepatitis Panel, General (05/23/2023 11:16 AM EDT) Hepatitis A IgM Nonreactive Nonreactive [facility] Comment:IgM antibodies to COTTO V not detected; does not exclude earlyacute or recovered HAV infection. ~Hepatitis B Surface Antibody REACTIVE Nonreactive [facility] Comment:REACTIVE: > 11.99 mI U/mL Hepatitis B Core Antibody Reactive Nonreactive [facility] Comment:Presumptive evidence of anti-HBc. Hepatitis C Antibody Nonreactive Nonreactive [facility] Comment:Antibodies to HCV no t detected; does not exclude early acuteHCV infection. Hepatitis B Surface Ag Negative Negative [facility] Blood 05/23/2023 11:1 6 AM EDT 05/23/2023 1:49 PM EDT Marleny Beebe MD LAB BLOOD ORDERABLES Fin al Result Performing Organization Address [facility]/ZIP Co de Phone Number [facility] [address] [place] [phone] from Last 3 Months or Most [...] diabetic neuropathy 09/20/2025 Weekly blood pressure task 10/05/2025 Weekly blood pressure task 10/05/2025 Weekly blood pressure task 10/05/2025 Patient has chronic kidney disease 10/05/2025 Patient has chronic kidney disease 10/05/2025 Patient has chronic kidney disease 10/05/2025 Patient has diabetic neuropathy 10/05/2025 Patient has diabetic neuropathy 10/05/2025 Patient has diabetic neuropathy 10/05/2025 Insurance [facility] STANDARD [facility] OPTIONS (O D-SNP) DENTAL - HSN FULL (MEDICAID) Care Teams Consular Officer Relationship Specialty Start Date End Date Marleny Beebe MD [address] [place] [address] PCP - General Family Medicine 12/25/16 Kavin Tan, PharmD [address] [place] [address] Pharmacist Pharmacy 07/13/25
--- OUTSIDE RECORDS SUMMARY | 2025-10-07 12:16 | XMS_ITS | Encounter Summary ---
Author Organization [employer] Address [address] [facility] [address] [place] [address] Care Team Providers Care Panel Coverer Name Role Phone Marleny Beebe MD Primary Care Provider + Kavin Tan PharmD Unavailable [phone] Encounter Details Date Type Department Care Team ([facility] st Contact Info) Description 10/05/2025 Telephone [facility] [address] [place], [place] [phone] Marleny Beebe MD [address] [place], [place] [phone] Social History Tobacco Use Types Packs/Day Years [...] encounter Miscellaneous Notes * Telephone Encounter - Alberto Remy - 10/05/2025 10:32 AM EST Pharmacy [facility] attempted outreach call on 10/05/25 for CDTM - Diabetes appointment; however, unable to reach patient. LVM for patient to contact Alberto Remy at [phone]. documented in this encounter Plan of Treatment Upcoming Encounters Date Type Department Care Team (Late st Contact Info) Description 11/01/2025 11:45 AM EST Office Visit [facility] [address] [place] [address] Marleny Beebe MD [address] [place] [address] documented as of this encounter Goals Goal [...] Weekly blood pressure task No SharpeTisha paige [place] Weekly blood pressure task Care Plan Weekly blood pressure task No SharpeTisha [place] Weekly blood pressure task Care Plan Weekly blood pressure task No SharpeTisha [place] Patient has chronic kidney disease Care Plan Patient has chronic kidney disease No Tisha Sharpe [place] Patient has chronic kidney disease Care Plan Patient has chronic kidney disease No SharpeTisha paige [place] Patient has chronic kidney disease Care Plan Patient has chronic kidney disease No SharpeTisha paige [place] Patient has diabetic neuropathy Care Plan Patient has diabetic neuropathy No SharpeTisha paige [place] Patient has diabetic neuropathy Care Plan Patient has diabetic neuropathy No SharpeTisha paige [place] Patient has diabetic neuropathy Care Plan Patient has diabetic neuropathy No SharpeTisha paige [place] Weekly blood pressure task Care Plan [...] disease No Wu Dejah, PharmD Patient has diabetic neuropathy Care Plan Patient has diabetic neuropathy No WuVaniaDejah, PharmD Patient has diabetic neuropathy Care Plan Patient has diabetic neuropathy No Wu, Dejah, PharmD Patient has diabetic neuropathy Care Plan Patient has diabetic neuropathy No WuVaniaDejah, PharmD Weekly blood pressure task [...] Plan Weekly blood pressure task No Kavin Tan PharmD Weekly blood pressure task Care Plan Weekly blood pressure task No Kavin Tan PharmMonica Weekly blood pressure task Care Plan [...] Weekly blood pressure task No SharpeTisha paige [place] Weekly blood pressure task Care Plan Weekly blood pressure task No Sharpe Tisha, [place] Patient has chronic [...] has diabetic neuropathy No Sharpe Tisha, [place] Patient has diabetic neuropathy Care [...] Patient has diabetic neuropathy No Alberto Remy documented as of this encounter Visit Diagnoses [...] neuropathy 10/05/2025 Patient has diabetic neuropathy 10/05/2025 documented as of this encounter Care Teams Panel Coverer Relationship Specialty Start Date End Date Marleny Beebe MD [address] [place] [address] PCP - General Family Medicine 12/25/16 Kavin Tan, NahumD [address] [place] [address] Pharmacist Pharmacy 07/13/25 documented as of this encounter
--- OUTSIDE RECORDS SUMMARY | 2025-10-07 12:16 | XMS_ITS | Encounter Summary ---
Author Organization [employer] Address [address] [facility] [address] [place] [address] Care Team Providers Care Research Fellow Name Role Phone Marleny Beebe MD Primary Care Provider + Kavin Tan PharmD Unavailable [phone] Encounter Details Date Type Department Care Team (Late st Contact Info) Description 05/26/2023 Orders Only [facility] [address], [place] [phone] Dejah Stewart LPN Social History Tobacco Use [...] Description 11/01/2025 11:45 AM EST Office Visit [facility] [address] [place], [place] [phone] Marleny Beebe MD [address] [place], [place] [phone] documented as of this encounter Visit Diagnoses Not on filedocumented in this encounter Care Teams Research Fellow Relationship Specialty Start Date End Date Marleny Beebe MD [address] [place] [address] PCP - General Family Medicine 12/25/16 Kavin Tan, NahumD [address] [place] [address] Pharmacist Pharmacy 07/13/25 documented as of this encounter
--- OUTSIDE RECORDS SUMMARY | 2025-10-07 12:16 | XMS_ITS | Encounter Summary ---
Author Organization [employer] Address [address] [facility] [address] [place] [address] Care Team Providers Care Fraud Investigator Name Role Phone Marleny Beebe MD Primary Care Provider + Kavin Tan PharmD Unavailable [phone] Reason for Visit * Reason Comments Med Refill Encounter Details Date Type Department Care Team (Late st Contact Info) Description 05/30/2023 Refill [facility] [address] [place], [place] [phone] Laurel Jiang MD [address] [place] [address] [phone] Anxiety and depression Social History Tobacco Use [...] Description 11/01/2025 11:45 AM EST Office Visit [facility] [address] [place] [phone] Marleny Beebe MD [address] [place] [address] documented as of this encounter Visit Diagnoses Diagnosis Anxiety and depression documented in this encounter Care Teams Fraud Investigator Relationship Specialty Start Date End Date Marleny Beebe MD [address] [place] [phone] PCP - General Family Medicine 12/25/16 Kavin Tan, NahumD [address] [place] [phone] Pharmacist Pharmacy 07/13/25 documented as of this encounter
--- OUTSIDE RECORDS SUMMARY | 2025-10-07 12:17 | XMS_ITS | Clinical Summary ---
Author Organization [facility] ity Address [address] [place] [address] Care Team Providers Care Ball Holder Name Role Phone Saad Cesar MD Primary Care Provider Immunizations Immunization Administration Dates Next Due Moderna SARS-CoV-2 COVID-19, mRNA, LNP-S, preservative free 11/02/2021,02/08/2021,01/11/2021 Surgical History Surgery Date Site/Laterality Comments KNEE ARTHROSCOPY PROCEDURE: [place] ARTHROSCOPY KNEE DIAGNOSTIC W/WO SYNOVIAL BX SPX; COMMENT: had multiple in debbie past OTHER SURGICAL HISTORY 2012 PROCEDURE: [place] UNLISTED PX ABDOMEN MUSCULOSKELETAL SYSTEM; COMMENT: for ischemic colitis and gangrenous colitis OTHER SURGICAL HISTORY PROCEDURE: VT UNLISTED PROCEDURE SPINE; COMMENT: for bulged disc CIRCUMCISION, PRIMARY PROCEDURE: HISTORICAL CIRCUMCISION OTHER SURGICAL HISTORY 11/26 PROCEDURE: VT REVJ COLOSTOMY SMPL RLS SUPFC SCAR SPX Medical History Medical History Date Comments Gout DX:Gout Hypertension DX:Hypertension Type 2 diabetes mellitus wit h diabetic nephropathy ([facility] V24, [facility] V28) DX: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 (HCC) Left leg DVT ([facility] V24, [facility] [place] V28) DX:Left leg DVT (HCC) Leg edema DX:Leg edema Osteoarthritis DX:Osteoarthriti s Arthritis, lumbar spine DX:Arthr itis, lumbar spine; COMMENT: recieved cortisone injections, had surgery Ischemic colon ([facility] V24) DX: Ischemic colon (HCC) Acute vascular insufficiency of intestine ([facility] V24) DX:Acute vascular insufficie ncy of intestine ([facility]); COMMENT: s/p surgery COPD (chronic obstructive pu lmonary disease) [facility], [facility] V28) DX:COPD (chronic o bstructive pulmonary disease) ([facility]); COMMENT: emphysema Obstructive sleep apnea DX:Obstr uctive sleep apnea; COMMENT: on CPAP at night Depression, major DX:Depression, major Ileostomy in place ([facility] V24, [facility] V28) 09/25/2012 DX:Ileostomy in place ([facility]) Osteoarthritis DX:Osteoarthriti s Type II or unspecified type diabetes mellitus with unspecified complication, not stated as uncontrolled DX:Type II or unspecified ty pe diabetes mellitus with unspecified complication, not stated as uncontrolled CKD (chronic kidney disease) stage 3, GFR 30-59 ml/min ([facility] V24, [facility] V28) 05/03/2013 DX:CKD (chronic kidney disea se) stage 3, GFR 30-59 ml/min ([facility]) COPD (chronic obstructive pu lmonary disease) ([facility] V24, [facility] V28) DX:COPD (chronic o bstructive pulmonary disease) ([facility]) Incisional hernia 02/17/2014 DX:Incisional hernia Hyperlipidemia 06/28/2015 [...] age to complete this topic Care Teams Ball Holder Relationship Specialty Start Date End Date Saad Cesar MD PCP - General Internal Medicine 09/16/12
--- OUTSIDE RECORDS SUMMARY | 2025-10-07 12:17 | XMS_ITS | Encounter Summary ---
Author Organization [employer] Address [address] [facility] [address] [place] [address] Care Team Providers Care Customer Development Manager Name Role Phone Marleny Beebe MD Primary Care Provider + Kavin Tan PharmD Unavailable [phone] Encounter Details Date Type Department Care Team ([facility] st Contact Info) Description 09/02/2025 Telephone [facility] MEDICINE [address] [place], [place] [phone] Marleny Beebe MD [address] [place], [place] [phone] Social History Tobacco Use Types Packs/Day Years [...] 11:45 AM EST Office Visit [facility] MED[facility]INE [address] [place] [phone] Marleny Beebe MD [address] [place] [address] documented as of this encounter Goals Goal [...] Plan Weekly blood pressure task No Natasha oGmez [place] Patient has chronic kidney disease Care [...] Care Plan Weekly blood pressure task No WuVanaiDejah, PharmD Weekly blood pressure task Care Plan [...] documented as of this encounter Care Teams Customer Development Manager Relationship Specialty Start Date End Date Marleny Beebe MD [address] [place] [address] PCP - General Family Medicine 12/25/16 Kavin Tan, Ana [address] [place] [address] Pharmacist Pharmacy 07/13/25 documented as of this encounter
--- OUTSIDE RECORDS SUMMARY | 2025-10-07 12:17 | XMS_ITS | Encounter Summary ---
Author Organization [employer] Address [address] [facility] [address] [place] [address] Care Team Providers Care Group Sales Representative Name Role Phone Marleny Beebe MD Primary Care Provider + Kavin Tan PharmD Unavailable [phone] Reason for Visit * Reason Onset Date Comments FYI 08/18/2025 Encounter Details Date Type Department Care Team ([facility] st Contact Info) Description 08/18/2025 Telephone [facility] MEDICINE [address] [place], [place] [phone] Marleny Beebe MD [address] [place], [place] [phone] FYI Social History Tobacco Use Types Packs/Day [...] visits so they will have to discontinue usp services. Pt will still have PT services. Please contact Esequiel at [phone]. documented in this encounter Plan of Treatment Upcoming Encounters Date Type Department Care Team (Late st Contact Info) Description 11/01/2025 11:45 AM EST Office Visit [facility] MEDICINE [address] [place] [address] Marleny Beebe MD [address] [place] [address] documented as of this encounter Visit Diagnoses Not on filedocumented in this encounter Care Teams Group Sales Representative Relationship Specialty Start Date End Date Marleny Beebe MD [address] [place] [address] PCP - General Family Medicine 12/25/16 Kavin Tan, NahumD [address] [place] [address] Pharmacist Pharmacy 07/13/25 documented as of this encounter
--- OUTSIDE RECORDS SUMMARY | 2025-10-07 12:17 | XMS_ITS | Encounter Summary ---
Author Organization [employer] Address [address] [place] [address] Care Team Providers Care Phlebotomy Technologist Name Role Phone Marleny Beebe MD Primary Care Provider + Kavin Tan PharmD Unavailable [phone] Encounter Details Date Type Department Care Team (Late st Contact Info) Description 07/11/2025 Orders Only [facility] [address] [place] [address] Marleny Beebe MD [address], [place] [phone] Benign essential hypertension (Primary Dx) Social History [...] Description 11/01/2025 11:45 AM EST Office Visit [facility] [address] [place] [address] Marleny Beebe MD [address] [place] [phone] documented as of this encounter Procedures Procedure Name Priority Date/Time Associated Diagnosis Comments CBC WITH AUTO DIFFERENTIAL Routine 10/03/2025 9:34 AM EST Benign essential hypertension HEMOGLOBIN A1C Routine 10/03/2025 9:34 AM EST Benign essential hypertension SLIDE REVIEW Routine 08/22/2025 3:44 PM EST [...] hypertension documented in this encounter Results * (ABNORMAL) Hemoglobin A1c (10/03/2025 9:34 AM EST) Hemoglobin A1c 7.5(H) <6.0 % [facility] Comment:Hemoglobin A1C Refer ence Range Adults: 4.8 - 6.0 % Non diabetic: < 6.0 % Goal: < 7.0 %Additional Action Suggested: > 8.0 %Note: Hemoglobin A1c results are invalid for patients with abnormal amounts of HbF. Blood transfusions may impact the HbA1c concentration in the patient sample. Estimated Average Glucose 169 mg/dL [facility] Comment:eAG = Estimated ave rage glucose which is %A1C expressed asaverage glucose, using the formula of the Y0N-RytopvxDrkqvux Glucose study (ADAG), Diabetes Care, Vol.31,#8,May. 2007 10/03/2025 9:34 AM EST 10/03/2025 1:53 PM EST us Generic External Data Provider LAB BLOOD ORDERAB LES Final Result [facility] [address] [place] [phone] * (ABNORMAL) CBC auto differential (10/03/2025 9:34 AM EST) White Blood Count 9.0 4.8 - 10.8 X10*3/uL [facility] Red Blood Count 4.17(L) 4.60 - 5.80 X10*6/uL [facility] Hemoglobin 12.2(L) 14.0 - 18.0 g/dl [facility] Hematocrit 37.2(L) 42.0 - 52.0 % [facility] Mean Corpuscular Volume 89.2 80.0 - 98.0 fL [facility] Mean Corpuscular Hemoglobin 29.3 27.0 - 33.0 pg [facility] Mean Corpuscular HGB Conc 32.8 31.0 - 36.0 g/dl [facility] Red Cell Distribution Width 13.8 11.0 - 16.0 % [facility] Platelet Count 267 160 - 400 X10*3/uL [facility] Mean Platelet Volume 11.3 9.4 - 12.4 fL [facility] Neutrophils Percent Auto 48.1 45 - 73 % [facility] Imm Gran Pct Auto 0.6(H) 0.0 - 0.4 % [facility] Lymphocytes Percent Auto 41.4(H) 20 - 40 % [facility] Monocytes Percent Auto 7.1 2 - 11 % [facility] Eosinophils Percent Auto 2.1 0 - 4 % [facility] Basophils Percent Auto 0.7 0 - 2 % [facility] NRBC Pct Auto 0.0 0.0 - 0.2 /100WBC [facility] Neutrophils Absolute Auto 4.4 2.0 - 8.3 x10*3/uL [facility] Imm Gran Abs Auto 0.05(H) 0.00 - 0.03 X10*3/uL [facility] Lymphocytes Absolute Auto 3.7 1.2 - 4.9 X10*3/uL [facility] Monocytes Absolute Auto 0.6 0.1 - 1.2 X10*3/uL [facility] Eosinophils Absolute Auto 0.2 0.0 - 0.4 X10*3/uL [facility] Basophils Absolute Auto 0.1 0.0 - 0.2 X10*3/uL [facility] NRBC Abs Auto 0.000 0.0 - 0.012 X10*3/uL [facility] 10/03/2025 9:34 AM EST 10/03/2025 1:53 PM EST us Generic External Data Provider LAB BLOOD ORDERAB LES Final Result Performing Organization Address [facility] Co de Phone Number [facility] [address] [place] [phone] * Slide Review (08/22/2025 3:44 PM EST) Slide Review VERIFIED [facility] 08/22/2025 3:44 PM EST 08/22/2025 6:05 PM EST us Marleny Beebe MD LAB BLOOD ORDERABLES Fin al Result Performing Organization Address [facility] Phone Number [facility] [address] [place] [phone] * Vitamin B12 (08/22/2025 3:44 PM EST) Vitamin B12 448 200 - 900 pg/mL [facility] Comment:NORMAL 200-900 PG/ML INDETERMINATE 160-199 PG/ML DEFICIENT < 160 PG/ML 08/22/2025 3:44 PM EST 08/22/2025 6:05 PM EST us Marleny Beebe MD LAB BLOOD ORDERABLES Fin al Result Performing Organization Address [facility] de Phone Number [facility] [address] [place] [phone] * Albumin, Random Urine W/Creatinine (08/22/2025 3:44 PM EST) Creatinine, Urine 133.87 mg/dL [facility] Microalbumin Urine 9.0 mg/L [facility] Microalbum Creatinine Ratio Ur 6.7 <30 ug/mg cr [facility] Comment:Albumin/Creatinine R atio Reference Ranges: Normal: < 30 ug/mg creatinine Microalbuminuria: 30 - 300 ug/mg creatinineClinical Albuminuria: > 300 ug/mg creatinine 08/22/2025 3:44 PM EST 08/22/2025 6:02 PM EST us Marleny Beebe MD LAB URINE ORDERABLES Fin al Result Performing Organization Address [facility] Co de Phone Number [facility] [address] [place] [address] [phone] * (ABNORMAL) Lipid Panel, Standard (08/22/2025 3:44 PM EST) Triglycerides 83 <150 mg/dL [facility] Comment:Desirable Triglyceri de: less than 150 mg/dLBorderline High Triglyceride 150-199 mg/dLHigh Triglyceride: 200-499 mg/dLVery High Triglyceride: greater than or equal to 5OO mg/dL Cholesterol 129 <200 mg/dL [facility] Comment:Desirable Cholestero l: less than 200 mg/dLBorderline High Cholesterol: 200-239 mg/dLHigh Cholesterol: greater than 239 mg/dL LDL Cholesterol Calculated 73 <100 mg/dL [facility] Comment:Desirable LDL: less than 100 mg/dLNear Optimal/Above Optimal LDL: 110- 129 mg/dLBorderline High LDL: 130-159 mg/dLHigh LDL: 160-189 mg/dLVery High LDL: greater than or equal to 190 mg/dL HDL Cholesterol 40(L) >40 mg/dL [facility] Comment:Desirable HDL: great er than 40 mg/dL Note: This HDL assay may give artificially low results in patients with liver disease. 08/22/2025 3:44 PM EST 08/22/2025 6:05 PM EST us Marleny Beebe MD LAB BLOOD ORDERABLES Fin al Result Performing Organization Address [facility] Co de Phone Number [facility] [address] [place] [address] [phone] * Hepatic Function Panel (08/22/2025 3:44 PM EST) Bilirubin, Total 0.7 0.0 - 1.0 mg/dL [facility] Bilirubin, Direct 0.3 0.0 - 0.5 mg/dL [facility] Aspartate Amino Transferase 30 5 - 37 U/L [facility] Alanine Aminotransferase 33 0 - 40 U/L [facility] Total Protein 7.8 6.5 - 8.0 g/dL [facility] Albumin Level 4.6 3.5 - 5.0 g/dL [facility] Alkaline Phosphatase 70 39 - 117 U/L [facility] 08/22/2025 3:44 PM EST 08/22/2025 6:05 PM EST us Marleny Beebe MD LAB BLOOD ORDERABLES Fin al Result Performing Organization Address City/State/[facility] Co de Phone Number [facility] [address] [place] [phone] * CT Cervical Spine w/o Contrast (08/11/2025 7:25 PM EDT) Anatomical Region Laterality Modality Spine, C-spine Computed Tomogra phy 08/11/2025 7:25 PM EDT Narrative 08/11/2025 7:27 PM EDT [address] [address] [address] Scan Report Signed Patient: Marin Valdez MR#: [id number] : 1950 Acct:[id number] Age/Sex: 74 / M ADM Date: 08/10/25 Loc: [facility] 474-[address]: Lonnie Lemus MD Ordering Physician: Lonnie Lemus MD Date of Service: 08/11/25 Procedure(s): CT cervical spine wo IV con Accession Number(s): [id number] cc: Marleny Beebe MD; Lonnie Lemus MD Report Number: [id number]: Total DLP = 581.00 mGy-cm Reason for [...] in OV> 08/11/251925 DD/ 24 TD/TT: 08/11/251924 [employer] Supervisor: Procedure Note Donotuseinterpreter, Image - 08/11/[address] [place] [address] [address] Scan Report Signed Patient: Royce Valdez#: [id number] : 2Acct:[id number] Age/Sex: 74 / MADM Date: 08/10/25 Loc: [facility] 474-[address]: Lonnie Lemus MD Ordering Physician: Lonnie Lemus MD Date of Service: 08/11/25 Procedure(s): CT cervical spine wo IV con Accession Number(s): [id number] cc: Marleny Beebe MD; Lonnie Lemus MD Report Number: [id number]: Total DLP = 581.00 mGy-cm Reason for [...] in OV> 08/11/251925 DD/ 24 TD/TT: 08/11/251924 [employer] Supervisor: [facility] External Provider IMG CT PROCEDURES Final Result * High Sensitivity Troponin I (08/10/2025 2:23 PM EDT) TROPONIN I HIGH SENSITIVITY 6.6 <3.5 - 35.0 ng/L [facility] Comment:The [place] high sens itivity Troponin-I results should beused in conjunction with other diagnostic information suchas ECG, clinical observations and information, and patientsymptoms to aid in the diagnosis of [place]. 08/10/2025 2:23 PM EDT 08/10/2025 2:26 PM EDT Generic External Data Provider LAB BLOOD ORDERAB LES Final Result [facility] [address] [place] [phone] * Drug Monitoring, Panel 1, Screen, Urine (08/10/2025 1:49 PM EDT) Opiate Screen Urine Not Detected Not Detect [facility] Comment:Opiate cut-off is 30 0 ng/mL.Positive results are unconfirmed and should not be used fornon-medical purposes. Barbiturates, Urine Not Detected Not Detect [facility] Comment:Barbiturate cut-off is 200 ng/mL.Positive results are unconfirmed and should not be used fornon-medical purposes. Phencyclidine Screen Urine Not Detected Not Detect [facility] Comment:Phencyclidine cut-of f is 25 ng/mL.Positive results are unconfirmed and should not be used fornon-medical purposes. Amphetamine Screen Urine Not Detected Not Detect [facility] Comment:Amphetamine cut-off is 1000 ng/mL.Positive results are unconfirmed and should not be used fornon-medical purposes. Benzodiazepines Screen Urine Not Detected Not Detect [facility] Comment:Benzodiazepine cut-o ff is 200 ng/mL.Positive results are unconfirmed and should not be used fornon-medical purposes. Cocaine Screen Urine Not Detected Not Detect [facility] Comment:Cocaine cut-off is 3 00 ng/mL.Positive results are unconfirmed and should not be used fornon-medical purposes. Cannabinoid Screen Urine Not Detected Not Detect [facility] Comment:Cannabinoid cut-off is 50 ng/mL.Positive results are unconfirmed and should not be used fornon-medical purposes. Methadone Screen, Urine Not Detected Not Detect ng/mL [facility] Comment:Methadone cut-off is 300 ng/mL.Positive results are unconfirmed and should not be used fornon-medical purposes. FENTANYL URINE Not Detected Not Detect [facility] Comment:Fentanyl cut-off is 1 ng/mL.Positive results are unconfirmed and should not be used fornon-medical purposes. Oxycodone Urine Screen Not Detected Not Detect ng/mL [facility] Comment:Oxycodone cut-off is 100 ng/mL.Positive results are unconfirmed and should not be used fornon-medical purposes. Buprenorphine Screen Not Detected Not Detect ng/mL [facility] Comment:Buprenorphine cut-of f is 5 ng/mL.Positive results are unconfirmed and should not be used fornon-medical purposes. 08/10/2025 1:49 PM EDT 08/10/2025 1:52 PM EDT us Generic External Data Provider LAB URINE ORDERAB LES Final Result [facility] [address] [place] [address] [phone] * (ABNORMAL) Urinalysis, Complete, with Reflex to Culture (08/10/2025 1:49 PM EDT) Color Urine Yellow [facility] Appearance Urine Clear [facility] PH 5.0 5.0 - 9.0 [facility] Glucose Urine UA Negative Negative mg/dL [facility] Urine Blood Negative Negative [facility] Specific Bally - Urine 1.015 1.005 - 1.025 [facility] Urine Protein Trace Neg-Trace mg/dL [facility] Urine Ketones Trace Negative mg/dL [facility] Nitrite Urine Negative Negative [facility] Leukocyte Esterase Urine Small (1+)(A) Negative [facility] RBC Urine 0-2 0 - 2 /HPF [facility] Urine WBC 6-10(A) 0 - 5 /HPF [facility] Urine Squamous Epithelial Cell 0-2 0 - 2 /HPF [facility] Urine Bacteria None Seen None Seen [facility] Hyaline Casts, Urine 11-20 0 - 2 /LPF [facility] 08/10/2025 1:49 PM EDT 08/10/2025 1:52 PM EDT Narrative [facility] - 08/10/2025 2:09 PM EDT [id number], Catheterized us Generic External Data Provider LAB URINE ORDERAB LES Final Result [facility] [address] [place] [phone] * CT Abdomen Pelvis w/o Contrast (08/10/2025 1:05 PM EDT) Anatomical Region Laterality Modality Body, Pelvis, Abdomen Computed T omography 08/10/2025 1:05 PM EDT Narrative 08/10/2025 1:52 PM EDT [address] [address] [address] Scan Report Signed Patient: Marin Valdez MR#: [id number] : 1950 Acct:[id number] Age/Sex: 74 / M ADM Date: 08/10/25 Loc: HO.ED Attending Dr: Ordering Physician: Jennifer Barahona Date of Service: 08/10/25 Procedure(s): CT abdomen pelvis wo IV con Accession Number(s): [id number] cc: Marleny Beebe MD; Jennifer Barahona Report Number: [id number]: Total DLP = 1129.00 mGy-cm Reason for [...] 08/10/25 1349 DD/ 1305 TD/TT: 08/10/25 1315 [employer] Supervisor: Procedure Note Donotuseinterpreter, Image - 08/10/[address] [address] [address] Scan Report Signed Patient: Marin ValdezMR#: [id number] : 1950cct:[id number] Age/Sex: 74 / MADM Date: 08/10/25 Loc: HO.ED Attending Dr: Ordering Physician: Jennifer Barahona Date of Service: 08/10/25 Procedure(s): CT abdomen pelvis wo IV con Accession Number(s): [id number] cc: Marleny Beebe MD; Jennifer Barahona Report Number: [id number]: Total DLP = 1129.00 mGy-cm Reason for [...] 08/10/25 1349 DD/ 1305 TD/TT: 08/10/25 1315 [employer] Supervisor: [facility] External Provider IMG CT PROCEDURES Final Result * CT Head w/o Contrast (08/10/2025 1:05 PM EDT) Anatomical Region Laterality Modality Head, Neck Computed Tomogra phy 08/10/2025 1:05 PM EDT Narrative 08/10/2025 1:45 PM EDT [place] [address] CT Scan Report Signed Patient: Marin Valdez MR#: [id number] : 1950 Acct:[id number] Age/Sex: 74 / M ADM Date: 08/10/25 Loc: HO.ED Attending Dr: Ordering Physician: Jennifer Barahona Date of Service: 08/10/25 Procedure(s): CT head/brain wo IV con Accession Number(s): [id number] cc: Marleny Beebe MD; Jennifer Barahona Report Number: [id number]: Total DLP = 887.00 mGy-cm Reason for [...] 08/10/25 1342 DD/ 1305 TD/TT: 08/10/25 1315 [employer] Supervisor: Procedure Note Donotuseinterpreter, Image - 08/10/[address] [address] [address] Scan Report Signed Patient: Royce Valdez#: [id number] : 2Acct:[id number] Age/Sex: 74 / MADM Date: 08/10/25 Loc: HO.ED Attending Dr: Ordering Physician: Jennifer Barahona Date of Service: 08/10/25 Procedure(s): CT head/brain wo IV con Accession Number(s): [id number] cc: Marleny Beebe MD; Jennifer Barahona Report Number: [id number]: Total DLP = 887.00 mGy-cm Reason for [...] 08/10/25 1342 DD/ 1305 TD/TT: 08/10/25 1315 [employer] Supervisor: us [facility] External Provider IMG CT PROCEDURES Final Result * XR Chest 1 View (08/10/2025 12:38 PM EDT) Anatomical Region Laterality Modality Chest Radiographic Guillermina ging 08/10/2025 12:3 8 PM EDT Narrative 08/10/2025 12:59 PM EDT [address] [address] XRay Report Signed Patient: Marin Valdez MR#: [id number] : 1950 Acct:[id number] Age/Sex: 74 / M ADM Date: 08/10/25 Loc: HO.ED Attending Dr: Ordering Physician: Jennifer Barahona Date of Service: 08/10/25 Procedure(s): XR chest 1V Accession Number(s): [id number] cc: Marleny Beebe MD; Jennifer Barahona Reason [...] 08/10/25 1255 DD/ 1238 TD/TT: 08/10/25 1252 [employer] Supervisor: Procedure Note Donotuseinterpreter, Image - 08/10/[address] [address] XRay Report Signed Patient: Marin ValdezMR#: [id number] : 1950cct:[id number] Age/Sex: 74 / MADM Date: 08/10/25 Loc: HO.ED Attending Dr: Ordering Physician: Jennifer Barahona Date of Service: 08/10/25 Procedure(s): XR chest 1V Accession Number(s): [id number] cc: Marleny Beebe MD; Jennifer Barahona Reason [...] 08/10/25 1255 DD/ 1238 TD/TT: 08/10/25 1252 [employer] Supervisor: [facility] External Provider IMG XR PROCEDURES Final Result * Lactic Acid (08/10/2025 12:22 PM EDT) Lactic Acid 1.7 0.5 - 2.0 mmol/L [facility] 08/10/2025 12:2 2 PM EDT 08/10/2025 12:29 PM EDT Generic External Data Provider LAB BLOOD ORDERAB LES Final Result [facility] [address] [place] [phone] * NT-proBNP (08/10/2025 11:06 AM EDT) NT-proBNP 180.3 <300 pg/mL [facility] Comment:Reference Range:Age Group (years) NT-proBNP (pg/ml) InterpretationAll <300 Negative: HF unlikelyFor patients presenting to the ED with clinical suspicion ofnew onset or worsening HF, see below:18 to <50 >299.9 to <450.0 Grayzone: [id number] to 75 >299.9 to <900.0 other causes of>75 >299.9 to <1800.0 NT-proBNP nzyxfisul13 to <50 >449.9 Positive: HF umlbud20-97 >899.9>75 >1799.9Note: Elevated NT-proBNP levels should be interpreted inthe context of other clinical information. 08/10/2025 11:0 6 AM EDT 08/10/2025 11:13 AM EDT us Generic External Data Provider LAB BLOOD ORDERAB LES Final Result Performing Organization Address City/[facility]/ZIP Co de Phone Number [facility] [address] [place] [phone] * Creatine Kinase, Total (08/10/2025 11:06 AM EDT) Creatine Kinase Total 109 38 - 174 U/L [facility] 08/10/2025 11:0 6 AM EDT 08/10/2025 11:12 AM EDT Generic External Data Provider LAB BLOOD ORDERAB LES Final Result Performing Organization Address [facility] Co de Phone Number [facility] [address] [place] [phone] * High Sensitivity Troponin I (08/10/2025 11:06 AM EDT) TROPONIN I HIGH SENSITIVITY 10.1 <3.5 - 35.0 ng/L [facility] Comment:The [place] high sens itivity Troponin-I results should beused in conjunction with other diagnostic information suchas ECG, clinical observations and information, and patientsymptoms to aid in the diagnosis of [place]. 08/10/2025 11:0 6 AM EDT 08/10/2025 11:13 AM EDT us Generic External Data Provider LAB BLOOD ORDERAB LES Final Result Performing Organization Address City/[facility]/ZIP Co de Phone Number [facility] [address] [place] [phone] * (ABNORMAL) Magnesium (08/10/2025 11:06 AM EDT) Magnesium 1.5(L) 1.6 - 2.6 mg/dL [facility] 08/10/2025 11:0 6 AM EDT 08/10/2025 11:12 AM EDT Generic External Data Provider LAB BLOOD ORDERAB LES Final Result Performing Organization Address [facility] Co de Phone Number [facility] [address] [place] [phone] * (ABNORMAL) Basic Metabolic Panel (08/10/2025 11:06 AM EDT) Sodium 133(L) 135 - 145 mmol/L [facility] Potassium 4.1 3.3 - 5.1 mmol/L [facility] Chloride 100 96 - 108 mmol/L [facility] Carbon Dioxide 22 22 - 29 mmol/L [facility] Anion Gap 15 12 - 20 [facility] Urea Nitrogen (BUN) 70(H) 9 - 16 mg/dL [facility] Creatinine, Serum 3.91(H) 0.5 - 1.4 mg/dL [facility] Creatinine Clr Calc Pharmacy 22.3 [facility] Comment:eGFR (calculated fro m the MDRD study equation) and eCrCl(calculated from the Cockcroft-Gault equation) are based ondifferent parameters and may not yield comparable results.If eCrCl result is absurd, please check patient'sheight/weight. Estimated Glomerular Filt Rate 15 [facility] Comment:Chronic Kidney Disea se: Estimated GFR < 60 mL/min/1.66o6Mjzlrc Kidney Disease: Estimated GFR < 15 mL/min/1.73m2 Glucose 148(H) 60 - 115 mg/dL [facility] Calcium 7.9(L) 8.4 - 10.2 mg/dL [facility] 08/10/2025 11:0 6 AM EDT 08/10/2025 11:12 AM EDT Generic External Data Provider LAB BLOOD ORDERAB LES Final Result Performing Organization Address [facility]/ZIP Co de Phone Number [facility] [address] [place] [phone] * Hepatic Function Panel (08/10/2025 11:06 AM EDT) Bilirubin, Total 0.4 0.0 - 1.0 mg/dL [facility] Bilirubin, Direct 0.1 0.0 - 0.5 mg/dL [facility] Aspartate Amino Transferase 21 5 - 37 U/L [facility] Alanine Aminotransferase 19 0 - 40 U/L [facility] Total Protein 6.7 6.5 - 8.0 g/dL [facility] Albumin Level 3.8 3.5 - 5.0 g/dL [facility] Alkaline Phosphatase 67 39 - 117 U/L [facility] 08/10/2025 11:0 6 AM EDT 08/10/2025 11:12 AM EDT [employer] External Data Provider LAB BLOOD ORDERAB LES Final Result Performing Organization Address [facility]/ZIP Co de Phone Number [facility] [address] [place] [phone] * (ABNORMAL) CBC auto differential (08/10/2025 11:06 AM EDT) White Blood Count 12.7(H) 4.8 - 10.8 X10*3/uL [facility] Red Blood Count 3.83(L) 4.60 - 5.80 X10*6/uL [facility] Hemoglobin 11.2(L) 14.0 - 18.0 g/dl [facility] Hematocrit 33.2(L) 42.0 - 52.0 % [facility] Mean Corpuscular Volume 86.7 80.0 - 98.0 fL [facility] Mean Corpuscular Hemoglobin 29.2 27.0 - 33.0 pg [facility] Mean Corpuscular HGB Conc 33.7 31.0 - 36.0 g/dl [facility] Red Cell Distribution Width 13.9 11.0 - 16.0 % [facility] Platelet Count 233 160 - 400 X10*3/uL [facility] Mean Platelet Volume 10.5 9.4 - 12.4 fL [facility] Neutrophils Percent Auto 61.7 45 - 73 % [facility] Imm Gran Pct Auto 0.9(H) 0.0 - 0.4 % [facility] Lymphocytes Percent Auto 26.9 20 - 40 % [facility] Monocytes Percent Auto 9.3 2 - 11 % [facility] Eosinophils Percent Auto 1.0 0 - 4 % [facility] Basophils Percent Auto 0.2 0 - 2 % [facility] NRBC Pct Auto 0.0 0.0 - 0.2 /100WBC [facility] Neutrophils Absolute Auto 7.8 2.0 - 8.3 x10*3/uL [facility] Imm Gran Abs Auto 0.11(H) 0.00 - 0.03 X10*3/uL [facility] Lymphocytes Absolute Auto 3.4 1.2 - 4.9 X10*3/uL [facility] Monocytes Absolute Auto 1.2 0.1 - 1.2 X10*3/uL [facility] Eosinophils Absolute Auto 0.1 0.0 - 0.4 X10*3/uL [facility] Basophils Absolute Auto 0.0 0.0 - 0.2 X10*3/uL [facility] NRBC Abs Auto 0.000 0.0 - 0.012 X10*3/uL [facility] 08/10/2025 11:0 6 AM EDT 08/10/2025 11:12 AM EDT us Generic External Data Provider LAB BLOOD ORDERAB LES Final Result Performing Organization Address [facility] Co de Phone Number [facility] [address] [place] [address] [phone] * HOLD LT BLUE - POSSIBLE COAG (08/10/2025 11:05 AM EDT) Hold Lt Blue - Possible Coag SEE NOTE [facility] Comment:Specimen will be hel d untested for 4 hours. Call Hematologyif testing is desired. 08/10/2025 11:0 5 AM EDT 08/10/2025 11:16 AM EDT us Generic External Data Provider LAB BLOOD ORDERAB LES Final Result Performing Organization Address [facility] de Phone Number [facility] [address] [place] [address] [phone] documented in this encounter Visit Diagnoses Diagnosis Benign essential hypertension- Primary Essential hypertension, benign documented in this encounter Care Teams Phlebotomy Technologist Relationship Specialty Start Date End Date Marleny Beebe MD [address] [place] [address] PCP - General Family Medicine 12/25/16 Kavin Tan, NahumD [address] [place] [phone] Pharmacist Pharmacy 07/13/25 documented as of this encounter
--- OUTSIDE RECORDS SUMMARY | 2025-10-07 12:17 | XMS_ITS | Encounter Summary ---
Author Organization [employer] Address [address] [facility] 7t [place] [address] Care Team Providers Care Cashier Gambling Name Role Phone Marleny Beebe MD Primary Care Provider + Kavin Tan PharmD Unavailable [phone] Reason for Visit * Reason Comments Med Refill Encounter Details Date Type Department Care Team ([facility] st Contact Info) Description 08/19/[address] [facility] [address] [place], [place] [phone] Marleny Beebe MD [address] [place], [place] [phone] Diabetic polyneuropathy associated with type 2 diabetes [...] Description 11/01/2025 11:45 AM EST Office Visit [facility] [address] [place] [address] Marleny Beebe MD [address] [place] [address] documented as of this encounter Visit Diagnoses Diagnosis Diabetic polyneuropathy associated with type 2 diabetes mellitus (HCC) documented in this encounter Care Teams Cashier Gambling Relationship Specialty Start Date End Date Marleny Beebe MD [address] [place] [phone] PCP - General Family Medicine 12/25/16 Kavin Tan, Ana [address] [place] [phone] Pharmacist Pharmacy 07/13/25 documented as of this encounter
--- OUTSIDE RECORDS SUMMARY | 2025-10-07 12:17 | XMS_ITS | Encounter Summary ---
Author Organization [employer] Address [address] [place] [address] 7t [place] [address] Care Team Providers Care Child Welfare Consultant Name Role Phone Marleny Beebe MD Primary Care Provider + Kavin Tan PharmD Unavailable [phone] Reason for Visit * Reason Comments Med Refill Encounter Details Date Type Department Care Team (Late st Contact Info) Description 03/06/2023 Refill [facility] MED[facility]INE [address] [place] [address] [phone] Marleny Beebe MD [address] [place] [address] [phone] Primary hypertension; Controlled type 2 diabetes mellitus with hyperglycemia, with long-term current use of insulin ([facility]) Social History Tobacco Use Types [...] 11:45 AM EST Office Visit [facility] [address] [place] [address] [phone] Marleny Beebe MD [address] [place] [address] [phone] documented as of this encounter Visit Diagnoses Diagnosis Primary hypertension Unspecified essential hypertension Controlled type 2 diabetes mellitus with hyperglycemia, with long-term current use of insulin ([facility]) documented in this encounter Care Teams Child Welfare Consultant Relationship Specialty Start Date End Date Marleny Beebe MD [address] [place], [place] [phone] PCP - General Family Medicine 12/25/16 Kavin Tan, NahumD [address] [place] [address] Pharmacist Pharmacy 07/13/25 documented as of this encounter
--- OUTSIDE RECORDS SUMMARY | 2025-10-07 12:17 | XMS_ITS | Encounter Summary ---
Author Organization [employer] Address [address] [place] [address] 7t [place] [address] Care Team Providers Care Thresher Broomcorn Name Role Phone Marleny Beebe MD Primary Care Provider + Kavin Tan PharmD Unavailable [phone] Reason for Visit * Reason Comments Med Refill Encounter Details Date Type Department Care Team (Late st Contact Info) Description 01/29/[address] [facility] MEDICINE [address] [place] [address] [phone] Marleny Beebe MD [address] [place] [address] [phone] Controlled type 2 diabetes mellitus with hyperglycemia, with long-term current use of insulin ([facility]); Primary hypertension Social History Tobacco Use [...] 11:45 AM EST Office Visit [facility] [address] [place] [address] [phone] Marleny Beebe MD [address] [place] [address] [phone] documented as of this encounter Visit Diagnoses Diagnosis Controlled type 2 diabetes mellitus with hyperglycemia, with long-term current use of insulin (HCC) Primary hypertension Unspecified essential hypertension documented in this encounter Care Teams Thresher Broomcorn Relationship Specialty Start Date End Date Marleny Beebe MD [address] [place], [place] [phone] PCP - General Family Medicine 12/25/16 Kavin Tan, Ana [address] [place] [address] Pharmacist Pharmacy 07/13/25 documented as of this encounter
--- OUTSIDE RECORDS SUMMARY | 2025-10-07 12:17 | XMS_ITS | Encounter Summary ---
Author Organization [employer] Address 75 [facility] 7t [place] [address] Care Team Providers Care Research Nurse Practitioner Name Role Phone Marleny Beebe MD Primary Care Provider + Kavin Tan PharmD Unavailable [phone] Encounter Details Date Type Department Care Team (Late st Contact Info) Description 03/26/2023 Orders Only [facility] [address] [place], [place] [phone] Dejah Stewart LPN Social History Tobacco Use [...] Description 11/01/2025 11:45 AM EST Office Visit [facility] [address] [place] [address] Marleny Beebe MD [address] [place] [address] documented as of this encounter Visit Diagnoses Not on filedocumented in this encounter Care Teams Research Nurse Practitioner Relationship Specialty Start Date End Date Marleny Beebe MD [address] [place] [address] PCP - General Family Medicine 12/25/16 Kavin Tan, PharmD [address] [place] [address] Pharmacist Pharmacy 07/13/25 documented as of this encounter
--- OUTSIDE RECORDS SUMMARY | 2025-10-07 12:17 | XMS_ITS | Encounter Summary ---
Author Organization [employer] Address 75 [facility] 7t [place] [address] Care Team Providers Care Inspector Screen Printing Name Role Phone Marleny Beebe MD Primary Care Provider + Kavin Tan PharmD Unavailable [phone] Encounter Details Date Type Department Care Team (Late st Contact Info) Description 03/06/2023 Orders Only [facility] [address] [place], [place] [phone] Dejah Stewart LPN Social History Tobacco Use [...] 11:45 AM EST Office Visit [facility] [address] [place] [address] Marleny Beebe MD [address] [place] [address] documented as of this encounter Visit Diagnoses Not on filedocumented in this encounter Care Teams Inspector Screen Printing Relationship Specialty Start Date End Date Marelny Beebe MD [address] [place] [address] PCP - General Family Medicine 12/25/16 Kavin Tan, PharmD [address] [place] [address] Pharmacist Pharmacy 07/13/25 documented as of this encounter
--- OUTSIDE RECORDS SUMMARY | 2025-10-07 12:17 | XMS_ITS | Encounter Summary ---
Author Organization [employer] Address [address] [place] [address] 7t [place] [address] Care Team Providers Care Oil Recovery Operator Name Role Phone Marleny Beebe MD Primary Care Provider + Kavin Tan PharmD Unavailable [phone] Reason for Visit * Reason Comments Med Refill Encounter Details Date Type Department Care Team (Late st Contact Info) Description 03/06/[address] [facility] MEDICINE [address] [place] [address] [phone] Marleny Beebe MD [address] [place] [address] [phone] Controlled type 2 diabetes mellitus with hyperglycemia, with long-term current use of insulin ([facility]); Primary hypertension Social History Tobacco [...] 11/01/2025 11:45 AM EST Office Visit [facility] [address] [place] [address] [phone] Marleny Beebe MD [address] [place] [address] [phone] documented as of this encounter Visit Diagnoses Diagnosis Controlled type 2 diabetes mellitus with hyperglycemia, with long-term current use of insulin (HCC) Primary hypertension Unspecified essential hypertension documented in this encounter Care Teams Oil Recovery Operator Relationship Specialty Start Date End Date Marleny Beebe MD [address] [place], [place] [phone] PCP - General Family Medicine 12/25/16 Kavin Tan, Ana [address] [place] [address] Pharmacist Pharmacy 07/13/25 documented as of this encounter
--- OUTSIDE RECORDS SUMMARY | 2025-10-07 12:17 | XMS_ITS | Encounter Summary ---
Author Organization [employer] Address 75 [facility] 7t [place] [address] Care Team Providers Care Waterworks Operator Name Role Phone Marleny Beebe MD Primary Care Provider + Kavin Tan PharmD Unavailable [phone] Encounter Details Date Type Department Care Team (Late st Contact Info) Description 08/10/2025 Results Follow-Up [facility] [address] [place] [address] Marleny Beebe MD [address] [place] [address] CBC auto differential, HOLD LT BLUE - [...] Description 11/01/2025 11:45 AM EST Office Visit [facility] [address] [place] [address] Marleny Beebe MD [address] [place] [address] documented as of this encounter Visit Diagnoses Not on filedocumented in this encounter Care Teams Waterworks Operator Relationship Specialty Start Date End Date Marleny Beebe MD [address] [place] [phone] PCP - General Family Medicine 12/25/16 Kavin Tan, NahumD [address] [place] [phone] Pharmacist Pharmacy 07/13/25 documented as of this encounter
--- OUTSIDE RECORDS SUMMARY | 2025-10-07 12:17 | XMS_ITS | Encounter Summary ---
Author Organization [employer] Address [address] [place] [address] 7t [place] [address] Care Team Providers Care Jig Hand Name Role Phone Marleny Beebe MD Primary Care Provider + Kavin Tan PharmD Unavailable [phone] Encounter Details Date Type Department Care Team (Late st Contact Info) Description 10/25/2022 Orders Only [facility] MEDICINE [address] [place] [phone] Jyothi Mccarthy LPN Social History Tobacco Use [...] 11:45 AM EST Office Visit [facility] MED[facility]INE [address] [place] [phone] Marleny Beebe MD [address] [place] [phone] documented as of this encounter Visit Diagnoses Not on filedocumented in this encounter Care Teams Jig Hand Relationship Specialty Start Date End Date Marleny Beebe MD [address] [place] [phone] PCP - General Family Medicine 12/25/16 Kavin Tan, PharmD [address] [place] [phone] Pharmacist Pharmacy 07/13/25 documented as of this encounter
--- OUTSIDE RECORDS SUMMARY | 2025-10-07 12:17 | XMS_ITS | Encounter Summary ---
Author Organization [employer] Address [address] [place] [address] 7t [place] [address] Care Team Providers Care Mixer Operator Name Role Phone Marleny Beebe MD Primary Care Provider + Kavin Tan PharmD Unavailable [phone] Reason for Visit * Reason Comments Med Refill Encounter Details Date Type Department Care Team (Late st Contact Info) Description 09/18/2022 Refill [facility] [address] [place] [address] [phone] Marleny Beebe MD [address] [place] [phone] Social History Tobacco Use Types Packs/Day Years [...] 11/01/2025 11:45 AM EST Office Visit [facility] [address] [place] [address] [phone] Marleny Beebe MD [address] [place] [address] [phone] documented as of this encounter Visit Diagnoses Not on filedocumented in this encounter Care Teams Mixer Operator Relationship Specialty Start Date End Date Marleny Beebe MD [address] [place] [phone] PCP - General Family Medicine 12/25/16 Kavin Tan, PharmD [address] [place] [phone] Pharmacist Pharmacy 07/13/25 documented as of this encounter
== END 2025-10-07 12:14 | disposition home or self-care (01) ==
LOC: HO.XRAY 12:13
PROVIDERS: PCP Internal Medicine; Visit Provider Student in an Organized Health Care Education/Training Program
DX: M14.671 Charcot's joint, right ankle and foot (principal)
CPT/HCPCS: 73610; 73630

== ENCOUNTER → 2025-10-07 12:15 | Outpatient (BNV) | payer OTHER, SELFPAY | PROVIDERS: PCP Internal Medicine; Visit Provider Radiology Diagnostic Ultrasound | DX: M14.671 Charcot's joint, right ankle and foot (principal); M19.071 Primary osteoarthritis, right ankle and foot | CPT/HCPCS: 73610; 73630 ==